=== PATIENT | male | born 1940 | race Caucasian/White ===

== ENCOUNTER 2017-04-23 11:11 | Inpatient (IN) | payer MEDICARE, OTHER ==
[2017-04-23] MEDS ORDERED: Dextrose 50% SYRINGE Inj (50 ml) IVP STA (11:29)
[2017-04-23] MEDS: Sodium Chloride 0.9% 1,000 ML IV STA ×2 (11:45→12:34)
--- NOTE | 2017-04-23 11:45 | ED PDOC ---
Arrival/HPI <Bry Schwartz - Last Filed: 04/23/17 13:55> <Jose Soto - Last Filed: 04/23/17 14:13> - General Chief Complaint: Weakness/Neurological Deficit Time Seen by Provider: 04/23/17 11:14 - History of Present Illness Narrative History of Present Illness (Text): CC: Weakness and failure to thrive This patient is a 76yo M who lives at home with his who has advanced dementia, helped with most daily acitvities of living by family members, who is coming in with son who is saying that the father seems much more weak, lethargic , and unable to do tasks that he was able to do previously. Upon calling Location which he lists as his pharmacy, they listed Vit D 50k, Cipro eye drops , fluconazole cream as his medications; they did not list any medications for chronic health conditions. However upon looking at past blood work done here, he has had a history of hypothyroidism, elevated liver enzymes, and a self reported history of HTN. He does not have any complaints himself, except for intermittent abdominal pain that comes and goes mostly with food, described as sharp, alternating between the right and left upper sides of his abdomen. He is not currently in abdominal pain. He denies fevers/chills, LOPEZ, CP, SOB, abdominal pain now, N/V/D, dysuria/freq/urg, or lower extremity pain. States he is sometimes incontinent with urine, and has to run to the bathroom which has been a problem for the past few years. Upon further questioning, son states that the father was a chronic drinker, drinking 6-12 beers every single day when he was growing up. Patient states he has not had anything to drink in the last 2 weeks. Has never had withdrawal seizures, has never been admitted for EtOH withdrawal. Called Dr. Drew office; stated the patient does not take medicines chronically for his medical conditions; has documented hypothyroidism, and HTN w /o CHF. Office is faxing over last visit to ER. Chest MRI done 4 months ago showed no mass or acute findings; elevated AST/ALT. Negative HIV/RPR, Hep A positive; other Hepatitis negative. US abdomen done but no results. HDL 109 LDL 46 MELD score on last doctors visit in December was 12.0; 6% chance of 3 month mortality. Glucose was 46 on entrance to ER; was given juice by mouth; also given D50 IV. PMhx: unable to obtain from Pt; info from Dr. Drew office; HTN, Hypothyroidism, BPH w/ urinary obstruction, HLD, chronic itchiness Past Surgical history: left eye cataract surgery Allergies: denies Medications: no chronic medications upon calling pharmacy FamHx: denies Social: lives at home with with advanced dementia, they are on meals on wheels, family provides most secondary support every day for IADL, is independent in ADL's, ANox3 and son believes he is at his baseline, previous heavy drinker, denies smoking/illicit drugs 04/23/17 12:28 (Bry Schwartz) Past Medical History - Provider Review Nursing Documentation Reviewed: Yes - Travel History Have you recently traveled outside [place] w/in the past 3 mons?: No - Past History Past History: No Previous - Infectious Disease Hx of Infectious Diseases: None - Cardiac Hx Hypertension: Yes - Neurological Hx Transient Ischemic Attacks (TIA): Yes (two years ago) - Psychiatric Hx Substance Use: No - Surgical History Hx Cataract Extraction: Yes (left eye) <Bry Schwartz - Last Filed: 04/23/17 13:55> Family/Social History - Physician Review Nursing Documentation Reviewed: Yes Family/Social History: No Known Family HX Smoking Status: Never Smoked Hx Alcohol Use: Yes (previous heavy drinker 6-12 beers every day ) Hx Substance Use: No <Bry Schwartz - Last Filed: 04/23/17 13:55> Allergies/Home Meds <Bry Schwartz - Last Filed: 04/23/17 13:55> <Jose Soto - Last Filed: 04/23/17 14:13> Allergies/Adverse Reactions: Allergies No Known Allergies Allergy (Verified 04/23/17 11:21) Home Medications: Home Meds Medication Instructions Recorded Confirmed No Known Home Med 04/23/17 04/23/17 Review of Systems - Physician Review All systems were reviewed & negative as marked: Yes - Review of Systems Constitutional: Fatigue, Weight Change Eyes: absent: Vision Changes ENT: absent: Hearing Changes Respiratory: absent: SOB, Cough, Sputum Cardiovascular: absent: Chest Pain, Palpitations Gastrointestinal: Abdominal Pain. absent: Stool Changes, Constipation Genitourinary Male: absent: Dysuria, Frequency Musculoskeletal: absent: Arthralgias, Back Pain, Neck Pain Skin: absent: Rash, Pruritis Neurological: absent: Headache, Dizziness Endocrine: absent: Diaphoresis Hemo/Lymphatic: absent: Adenopathy Psychiatric: absent: Anxiety <Bry Schwartz - Last Filed: 04/23/17 13:55> Physical Exam Temperature: Afebrile Blood Pressure: Hypotensive Pulse: Regular Respiratory Rate: Normal Appearance: Positive for: Non-Toxic, Cachectic Mental Status: Positive for: Alert and Oriented X 3. No: Confused, Agitated, Lethargic Finger Stick Blood Glucose: 46 - Systems Exam Head: Present: Atraumatic, Normocephalic, Other (temporal wasting ) Extroacular Muscles: Present: EOMI, Other (senile archus present b/l cataracts ) Conjunctiva: Present: Normal Mouth: Present: Moist Mucous Membranes Pharnyx: Present: Normal. No: ERYTHEMA, EXUDATE Neck: Present: Normal Range of Motion. No: Meningeal Signs Respiratory/Chest: Present: Clear to Auscultation, Good Air Exchange. No: Respiratory Distress Cardiovascular: Present: Regular Rate and Rhythm. No: Murmurs Abdomen: Present: Normal Bowel Sounds. No: Tenderness, Distention Back: No: CVA Tenderness Upper Extremity: Present: Normal Inspection. No: Cyanosis, Edema Lower Extremity: Present: Normal Inspection. No: Edema, CALF TENDERNESS Neurological: Present: GCS=15, CN II-XII Intact, Speech Normal <Bry Schwartz - Last Filed: 04/23/17 13:55> Vital Signs Reviewed: Yes <Jose Soto - Last Filed: 04/23/17 14:13> Vital Signs Temp Pulse Resp BP Pulse Ox 04/23/17 13:00 101 H 20 122/69 96 04/23/17 12:00 96.8 F L 110 H 18 99/58 L 98 04/23/17 11:33 97.7 F 70 17 96/61 L 98 Medical Decision Making <Bry Schwartz - Last Filed: 04/23/17 13:55> <Jose Soto - Last Filed: 04/23/17 14:13> ED Course and Treatment: 04/23/17 11:58 DDx is wide; Malnutrition/Failure to Thrive; Hepatocellular Carcinoma; Hepatitis ; ACS; hypothroidism; chronic EtOH abuse -CBC -CMP -EKG, Cardiac ISO; EKG shows flattened T waves and HI depressions -TSH/Free T4 given previous hx of hypothroidism on file -GGT/Alpha feto protein -Head CT, Abdom/pelvis CT w/ IV Contrast -UA -VBC Lactate -Temp 96.8, Hypotensive; awaiting blood work Lactate 7.0; code sepsis called Given -D50/Juice sugar has come up -lactate 7.3; code sepsis called -given 2L of fluid total -1G Vanc and 1g Cefepime -WBC 17.0, INR 2.14 04/23/17 12:16 VBG shows K of 7.1; will give calcium gluconate pending CMP Blood pressure has responded to fluids; currently 120/85 on monitor patient is comfortably resting in bed; anox3; answering all questions; family at bedside; all questions answered pending head CT and abdominal/pelvis CT 04/23/17 12:49 Current MELD score of 23pts; 19.6% of 3 month mortality LUCRETIA; creatinine currently 1.5 from baseline of 0.5 in December; BUN 40; patient is likely very dehydrated Mag and Phos WNL K 3.3; will give 40meq potassium will go for Abd Pelvis CT and head CT now 04/23/17 12:50 Trop 0.2; will reorder one for 6 hours 04/23/17 13:44 Chest X-Ray shows large effusion on the left patient is oxygenating well, in no acute distress Talked to Dr. Ochoa who accepts patient to her service on Telemetry Placed consult for Dr. Mariee on her behalf Still pending head CT, Chest CT, Abdomen/Pelvis CT 04/23/17 13:45 (Bry Schwartz) 04/23/17 14:05 Patient seen and examined with resident; came up together with plan and treatment. BP initially noted to be low at 96 systolic. Exam with significantly diminished BS on the left side and noted to be cachectic. VBG with lactic acid of 7.3; code sepsis called. IV antibiotics started and IVF given per protocol. CXR with large effusion and possible mass on the left side. BP has responded nicely to IVF, now up to [address] c/a/p is pending. He will need to be admitted for iv antibiotics and further assessment and treatment for sepsis and potential underlying disease so will need to r/o malignancy. 04/23/17 14:12 Resident [place] spoke with Dr. Ochoa concerning admission. (Jose Soto) - Lab Interpretations Lab Results: 04/23/17 11:30 04/23/17 12:30 Lab Results 04/23/17 12:30: Sodium 143, Chloride 104, Potassium 3.3 L, Carbon Dioxide 25, Anion Gap 17, BUN 40 H, Creatinine 1.5, Est GFR ( Amer) 55, Est GFR (Non- Af Amer) 46, Random Glucose 274 H, Calcium 8.8, Phosphorus 4.6 H, Magnesium 1.8 , Total Bilirubin 3.3 H, GGT 39, AST 40, ALT 33, Alkaline Phosphatase 110, Lactate Dehydrogenase 317 L, Total Creatine Kinase 30 L, Troponin I 0.02, Total Protein 5.3 L, Albumin 2.3 L, Globulin 3.1, Albumin/Globulin Ratio 0.7 L, Lipase 12 L 04/23/17 11:30: PT 23.9 H, INR 2.14 H 04/23/17 11:30: pO2 35, VBG pH 7.30 L, VBG pCO2 51.0, VBG HCO3 25.1, VBG Total CO2 26.7, VBG O2 Sat (Calc) 62.0, VBG Base Excess -2.0 L, VBG Potassium 7.6 H*, Sodium 140.0, Chloride 103.0, Glucose 127 H, Lactate 7.3 H*, FiO2 21.0, Venous Blood Potassium 7.6 H* 04/23/17 11:30: Free T4 1.83, TSH 3rd Generation 11.20 H 04/23/17 11:30: WBC 17.6 H, RBC 4.56, Hgb 15.0, Hct 42.9, MCV 94.1, MCH 32.9, MCHC 35.0, RDW 13.9, Plt Count 251, MPV 9.9, Gran % 76.3 H, Lymph % (Auto) 9.3 L , Wagoner % (Auto) 13.9 H, Eos % (Auto) 0.2 L, Baso % (Auto) 0.3, Gran # 13.43 H, Lymph # 1.6, Wagoner # 2.5 H, Eos # 0.0, Baso # 0.06 - RAD Interpretation Radiology Orders: 04/23/17 11:47 HEAD W/O CONTRAST [CT] Stat CHEST PORTABLE [RAD] Stat 04/23/17 12:48 ABDOMEN & PELVIS [ABD & PELVIS W/O PO OR IV CONT] [CT] Stat 04/23/17 13:45 CHEST W/O CONTRAST [CT] Stat - Medication Orders Current Medication Orders: Cefepime HCl (Maxipime 1gm) 1 gm in 100 mls @ 100 mls/hr IVPB Q24H CEM PRN Reason: Protocol Discontinued Medications Dextrose (Dextrose 50% Inj) 50 ml IVP STAT STA Stop: 04/23/17 11:30 Last Admin: 04/23/17 11:54 Dose: 50 ml IVP Administration Document 04/23/17 11:54 YVETTE (Rec: 04/23/17 11:54 YVETTE VARGAS-PC) Charges for Administration # of IVP Administrations 1 Sodium Chloride (Sodium Chloride 0.9%) 1,000 mls @ 999 mls/hr IV .Q1H1M STA Stop: 04/23/17 12:36 Last Admin: 04/23/17 12:34 Dose: 999 mls/hr eMAR Start Stop Document 04/23/17 12:34 YVETTE (Rec: 04/23/17 12:35 YVETTE VARGAS-PC) Intravenous Solution Start Date 04/23/17 Start Time 12:35 End Date 04/23/17 End time 13:35 Total Infusion Time 60 Multivitamins/Vitamin C 10 ml/Thiamine HCl 100 mg/ Folic Acid 1 mg/ Sodium Chloride 1,011.2 mls @ 999 mls/hr IV .Q1H1M ONE Stop: 04/23/17 12:57 Last Admin: 04/23/17 12:36 Dose: 999 mls/hr eMAR Start Stop Document 04/23/17 12:36 YVETTE (Rec: 04/23/17 12:36 YVETTE VARGAS-PC) Intravenous Solution Start Date 04/23/17 Start Time 12:36 End Date 04/23/17 End time 13:36 Total Infusion Time 60 Vancomycin HCl (Vancomycin 1gm) 1 gm in 250 mls @ 167 mls/hr IVPB STAT STA PRN Reason: Protocol Stop: 04/23/17 13:33 Last Admin: 04/23/17 12:21 Dose: 167 mls/hr eMAR Start Stop Document 04/23/17 12:21 YVETTE (Rec: 04/23/17 12:21 VYETTE [id number]) Intravenous Solution Start Date 04/23/17 Start Time 12:21 End Date 04/23/17 End time 14:00 Total Infusion Time 99 Potassium Chloride (K-Dur 20 Meq Er Tab) 40 meq PO STAT STA Stop: 04/23/17 12:49 Last Admin: 04/23/17 13:02 Dose: 40 meq NIHSS Scale ([place]) Time Performed: 11:56 - How Severe is the Stoke Baseline Level of Consciousness: 0=Alert LOC to Questions: 0=Both comments correct LOC to commands: 0=Obeys both correctly Best Gaze: 0=Normal Visual: 0=No visual loss Facial: 0=Normal Motor Arm - Left: 0=No drift Motor Arm - Right: 0=No drift Motor Leg - Left: 0=No drift Motor Leg - Right: 0=No drift Limb Ataxia: 0=Absent Sensory: 0=Normal Best Language: 0=No aphasia Dysarthia: 0=Normal articulation Extinction & Inattention (Neglect): 0=Normal, no object Score: 0 Risk Level: No Stroke Risk <Bry Schwartz - Last Filed: 04/23/17 13:55> - PA / PAPER GLUING OPERATOR / Resident Statement / has reviewed & agrees with the documentation as recorded. / has examined the patient and agrees with the treatment plan. <Jose Soto - Last Filed: 04/23/17 14:13> Disposition/Present on Arrival - Present on Arrival Any Indicators Present on Arrival: Yes History of DVT/PE: No History of Uncontrolled Diabetes: No Urinary Catheter: No History of Decub. Ulcer: No History Surgical Site Infection Following: None - Disposition Have Diagnosis and Disposition been Completed?: Yes Disposition Time: 13:55 Patient Plan: Telemetry <Bry Schwartz - Last Filed: 04/23/17 13:55> <Jose Soto - Last Filed: 04/23/17 14:13> - Disposition Diagnosis: Sepsis Disposition: HOSPITALIZED Patient Problems: Current Active Problems Problem Status Onset Sepsis Acute Condition: SERIOUS
[2017-04-23] MEDS ORDERED: Thiamine 100 mg/ml Inj IM STA (11:51)
[2017-04-23] MEDS ORDERED: Folic Acid 1 MG in Sodium Chloride 0.9% 50 ML IV STA (11:51)
[2017-04-23 11:57] LABS: BASO # 0.06 K/mm3 (0.0-2.0); BASO % 0.3 % (0.0-3.0); EOS % 0.2 % (1.5-5.0); GRAN # 13.43 (1.4-6.5); GRAN % 76.3 % (50.0-68.0); HEMATOCRIT 42.9 % (42.0-52.0); LYMPH # 1.6 (1.2-3.4); LYMPH % 9.3 % (22.0-35.0); MEAN CELL VOLUME 94.1 fl (80.0-105.0); MEAN CORPUSCULAR HEMOGLOBIN 32.9 pg (25.0-35.0); MEAN PLATELET VOLUME 9.9 fl (7.0-11.0); MONO # 2.5 (0.1-0.6); MONO % 13.9 % (1.0-6.0); RED CELL DISTRIBUTION WIDTH 13.9 % (11.5-14.5); WHITE BLOOD COUNT 17.6 10^3/ul (4.5-11.0)
[2017-04-23] MEDS ORDERED: Multivitamin (MVI) 10 ML, Thiamine 100 MG, Folic Acid 1 MG in Sodium Chloride 0.9% 1,00... IV ONE ×2 (11:57→12:03)
[2017-04-23 12:04] LABS: INR 2.14 (0.93-1.08)
[2017-04-23] MEDS ORDERED: Vancomycin 1gm in NS 250ml 1 GM/250 ML BAG IVPB STA (12:04)
[2017-04-23] MEDS ORDERED: Cefepime 1gm in NS 100ml 1 GM/100 ML BAG IVPB SCH (12:15)
[2017-04-23 12:45] LABS: ALB/GLOB RATIO 0.7 (1.1-1.8); BILIRUBIN,TOTAL 3.3 mg/dL (0.2-1.3); CALCIUM 8.8 mg/dL (8.4-10.5); MAGNESIUM 1.8 mg/dL (1.7-2.2); PHOSPHOROUS 4.6 mg/dL (2.5-4.5); POTASSIUM 3.3 mmol/L (3.6-5.0); TOTAL PROTEIN 5.3 g/dL (5.8-8.3)
[2017-04-23] MEDS ORDERED: Potassium Chloride 20 mEq ER Tab PO STA (12:48)
[2017-04-23 12:55] LABS: TROPONIN I 0.02 ng/mL
[2017-04-23 13:29] LABS: FREE T4 1.83 ng/dL (0.78-2.19)
[2017-04-23 13:42] LABS: THYROID STIMULATING HORMONE 11.2 mIU/mL (0.46-4.68)
--- NOTE | 2017-04-23 14:19 | RAD ---
HISTORY: weakness COMPARISON: No prior. FINDINGS: LUNGS: Left-sided infiltrate and effusion. There is mediastinal shift to the right. There is a fluid loculation in the right lung apex. CT may be indicated for further evaluation. The right lung is clear PLEURA: No significant pleural effusion identified, no pneumothorax apparent. CARDIOVASCULAR: Severe cardiomegaly OSSEOUS STRUCTURES: No significant abnormalities. VISUALIZED UPPER ABDOMEN: Normal. OTHER FINDINGS: None. IMPRESSION: Left-sided infiltrate and effusion. There is mediastinal shift to the right. There is a fluid loculation in the right lung apex. CT may be indicated for further evaluation. The right lung is clear
--- NOTE | 2017-04-23 15:31 | CT ---
PROCEDURE: CT HEAD WITHOUT CONTRAST. HISTORY: weakness COMPARISON: 10/12/[address] MR brain[address] No prior CT head exams TECHNIQUE: Axial computed tomography images were obtained through the head/brain without intravenous contrast. Radiation dose: Total exam DLP = 748 mGy-cm. This CT exam was performed using one or more of the following dose reduction techniques: Automated exposure control, adjustment of the mA and/or kV according to patient size, and/or use of iterative reconstruction technique. FINDINGS: HEMORRHAGE: No intracranial hemorrhage. BRAIN: No mass effect or edema. Cerebral atrophy with findings consistent with chronic microvascular ischemic changes are also suggested on the CT exam VENTRICLES: Are prominent yet similar in-commensurate with the degree of cerebral atrophy present and consistent with patient's age CALVARIUM: Unremarkable. PARANASAL SINUSES: Unremarkable as visualized. No significant inflammatory changes. MASTOID AIR CELLS: Unremarkable as visualized. No inflammatory changes. OTHER FINDINGS: None. IMPRESSION: No interval change. No interval hemorrhage or mass effect. No interval extra-axial pathology. Cerebral atrophy and findings consistent with chronic microvascular ischemic changes are renoted
--- NOTE | 2017-04-23 15:56 | CT ---
PROCEDURE: CT Chest, Abdomen and Pelvis without intravenous contrast HISTORY: elevated lft COMPARISON: None. TECHNIQUE: Radiation dose: Total exam DLP = 820 mGy-cm. This CT exam was performed using one or more of the following dose reduction techniques: Automated exposure control, adjustment of the mA and/or kV according to patient size, and/or use of iterative reconstruction technique. FINDINGS: CT CHEST WITHOUT CONTRAST: LUNGS: Large loculated left pleural effusion. There is complete collapse and consolidation of the left lung MEDIASTINUM: Unremarkable. Normal caliber aorta and pulmonary arterial trunk. Normal size heart. LYMPH NODES: Unremarkable. PLEURA: There is a large loculated left-sided pleural effusion. Multiple small pockets of air are seen within the effusion which is suspicious for a gas-forming infection. BONES: Unremarkable. OTHER FINDINGS: None. CT ABDOMEN AND PELVIS: LIVER: Unremarkable. No gross lesion or ductal dilatation. GALLBLADDER AND BILE DUCTS: Unremarkable. PANCREAS: Unremarkable. No gross lesion or ductal dilatation. SPLEEN: Unremarkable. ADRENALS: Unremarkable. No mass. KIDNEYS AND URETERS: Unremarkable. No hydronephrosis. No solid mass. VASCULATURE: Unremarkable. No aortic aneurysm. BOWEL: Unremarkable. No obstruction. No gross mural thickening. APPENDIX: Normal appendix. PERITONEUM: Unremarkable. No free fluid. No free air. LYMPH NODES: Unremarkable. No enlarged lymph nodes. BLADDER: Unremarkable. REPRODUCTIVE: Unremarkable. BONES: There is an L1 compression fracture, age uncertain OTHER FINDINGS: None. IMPRESSION: Large loculated left-sided pleural effusion. Multiple small pockets of air are seen within the effusion which is suspicious for a gas-forming infection. There is collapse of the left lung
[2017-04-23 16:40] LABS: VENOUS BLOOD PH 7.31 (7.32-7.43)
--- NOTE | 2017-04-23 16:51 | CARD ---
APPROVED REPORT EKG Measurement Heart [id number] <Conclusion> Sinus tachycardia Nonspecific ST and T wave abnormality Abnormal ECG
[2017-04-23 16:59] LABS: TROPONIN I 0.02 ng/mL
[2017-04-23] MEDS: Dextrose 5%/0.45% NS 1,000 ML IV SCH (17:08)
[2017-04-23] MEDS: Albuterol-Ipratrop 3 mg / 0.5 (3 ml) UD IH SCH (19:45)
[2017-04-23 22:58] LABS: TROPONIN I 0.02 ng/mL
[2017-04-24] MEDS: Albuterol-Ipratrop 3 mg / 0.5 (3 ml) UD IH SCH ×4 (01:30→19:24)
--- NOTE | 2017-04-24 01:45 | HP ---
HISTORY OF PRESENT ILLNESS: The patient is 76-year-old who was brought to emergency room because of increasing weakness, losing weight, not eating that well. He lives with his who stated that he has been increasingly weak, tired, refusing to eat, so when son came to visit, mom asked him to bring to emergency room for further evaluation. PAST MEDICAL HISTORY: He has significant past medical history for; 1. Hypothyroidism. 2. Hypertension. 3. History of intermittent abdominal pain. He was taken to his regular doctor who started workup, was given prescription for abdominal sonogram in December, but he never went. SOCIAL HISTORY: Significant for heavy drinking in the past; he used to drink 6 to 12 beers every day. He is , lives with his because he is unable to take care of himself because of his worsening dementia. SURGICAL HISTORY: Significant for left eye cataract surgery. MEDICATIONS: Currently, he is not on any medication. ALLERGIES: HE IS NOT ALLERGIC TO ANY MEDICATION. REVIEW OF SYSTEMS: Significant for generalized weakness, cachectic, and pale. PHYSICAL EXAMINATION: VITAL SIGNS: He is afebrile, pulse 100, respirations 20, and blood pressure 120/82. LUNGS: Bilateral fair airflow. No rhonchi or crackle. HEART: S1 and S2 audible. ABDOMEN: Soft. No rebound or guarding. NEUROLOGIC: He is awake and alert, but not very communicative. EXTREMITIES: Bilateral leg,no edema. LABORATORY DATA: WBC is 17.6, hemoglobin 15, hematocrit 42, and platelet count of 251. PT 23.9 and INR 2.14. Chemistry: Sodium 143, potassium 3.3, chloride 104, CO2 of 25, BUN 40, creatinine 1.5, and blood sugar of 274. His magnesium is 1.8. Total bili 3.3. His AST 39 and ALT 40. LDH is 317. His TSH is 11.20. CT of the abdomen and pelvis was done that showed large, loculated left-sided pleural effusion; multiple small pockets of air are seen within the effusion which is suspicious for gas-forming infection. There is collapse of the left lung. CT scan of the head shows no interval change, interval hemorrhage or mass effect; cerebral atrophy consistent with microvascular changes. X-ray of chest, left-sided infiltrate and effusion. There is mediastinal shift to the right and pleural loculation in the right lung apex. ASSESSMENT: 1. Left lower lobe pneumonia versus malignancy. 2. Pleural effusion. 3. Significant weight lost. 4. Leukocytosis. 5. History of hypertension. PLAN: We will start the patient on IV fluids, start him on antibiotics, nebulizer treatment. Request Dr. Harman to evaluate the patient. Request Dr. Darren Warren for thoracentesis, therapeutic and diagnostic, and we will follow up his electrolytes. We will follow up the patient in a.m. Tony Ochoa MD
[2017-04-24] MEDS: Dextrose 5%/0.45% NS 1,000 ML IV SCH (05:32)
[2017-04-24] MEDS: Meropenem 1 GM in Dextrose 5% In Water 100 ML IVPB SCH ×2 (08:04→17:57)
[2017-04-24 09:21] LABS: BASO # 0.09 K/mm3 (0.0-2.0); BASO % 0.6 % (0.0-3.0); EOS # 0.1 (0.0-0.7); EOS % 0.5 % (1.5-5.0); GRAN # 10.06 (1.4-6.5); GRAN % 67.6 % (50.0-68.0); HEMATOCRIT 37.2 % (42.0-52.0); LYMPH # 2.3 (1.2-3.4); LYMPH % 15.1 % (22.0-35.0); MEAN CELL VOLUME 94.4 fl (80.0-105.0); MEAN CORPUSCULAR HEMOGLOBIN 31.2 pg (25.0-35.0); MEAN CORPUSCULAR HGB CONC 33.1 g/dl (31.0-37.0); MEAN PLATELET VOLUME 9.6 fl (7.0-11.0); MONO # 2.4 (0.1-0.6); MONO % 16.2 % (1.0-6.0); RED CELL DISTRIBUTION WIDTH 14.2 % (11.5-14.5); WHITE BLOOD COUNT 14.9 10^3/ul (4.5-11.0)
[2017-04-24 09:25] LABS: ALB/GLOB RATIO 0.8 (1.1-1.8); ALKALINE PHOSPHATASE 122 U/L (38-126); ALT/SGPT 43 U/L (7-56); AST/SGOT 38 U/L (17-59); BILIRUBIN,TOTAL 3.2 mg/dL (0.2-1.3); BLOOD UREA NITROGEN 36 mg/dL (7-21); CALCIUM 8.5 mg/dL (8.4-10.5); CARBON DIOXIDE 21 mmol/L (21-33); CHLORIDE 113 mmol/L (98-107); GFR AFRICAN-AMERICAN > 60; GLUCOSE,RANDOM 154 mg/dL (70-110); SODIUM 145 mmol/L (132-148); TOTAL PROTEIN 5.4 g/dL (5.8-8.3)
[2017-04-24] MEDS: Azithromycin 500MG/NS 250ml 500 MG/250 ML BAG IVPB SCH (09:51)
[2017-04-24] MEDS ORDERED: cefTRIAXone 1 gm 1 GM/100 ML BAG IVPB SCH (10:00)
[2017-04-24] MEDS ORDERED: Levalbuterol 0.63 MG/3 ML Inhal Soln UD IH PRN (10:35)
[2017-04-24 11:47] LABS: INR 1.88 (0.93-1.08)
[2017-04-24] MEDS ORDERED: Dextrose 5%/0.45% NS 1,000 ML IV SCH (12:28)
--- NOTE | 2017-04-24 12:59 | CON ---
DATE: 04/24/2017 The patient is in room 268, bed 2. CHIEF COMPLAINT: Weakness from several days. HISTORY OF PRESENT ILLNESS: This is a 76-year-old [facility] man, who has not been in [place] for past 20 years with hypothyroidism and hypertension and cataract and dementia with a history of alcohol abuse who was admitted with shortness of breath and weakness and found to have pneumonia with loculated effusion, Infectious consultation requested. REVIEW OF SYSTEMS: Reveals the patient's son is at the bedside who states that he had been deteriorating last few days. He has been weak, unable to tolerate food, there was minimal cough, low grade fevers. No abdominal pain or diarrhea. No headaches or blurred vision. PAST MEDICAL HISTORY: Significant for hypothyroidism, hypertension, cataract, and dementia. PAST SURGICAL HISTORY: Significant for left eye cataract surgery. ALLERGIES: THE PATIENT HAS NO KNOWN ALLERGIES. MEDICATIONS AT HOME: Reviewed. PHYSICAL EXAMINATION GENERAL: The patient is in bed. VITAL SIGNS: Temperature of 98. It was around 96.8, heart rate of 113, respiratory rate of 20 with blood pressure of 111/60. HEENT: Unremarkable. NECK: Supple. LUNGS: Decreased breath sounds. HEART: Normal S1, S2. ABDOMEN: Soft, nontender. No rebound or guarding. LABORATORY DATA: A white count of 17,600; 76% granulocytosis, 13% monocytosis, and coagulation is noted with INR of 2.14. Blood gases are noted. Chemistries reveals a BUN of 36, creatinine on admission was 1.5, it had been 0.5. The patient also has an elevated LDH. ASSESSMENT AND PLAN: This is a 76-year-old [facility] male with hypothyroidism, hypertension, cataracts, dementia who was admitted with severe sepsis with left lower lobe community-acquired pneumonia with left loculated effusion on CAT scan of the chest and with acute kidney injury. Creatinine is changed from last time 0.54 up to 1.5. We will treat the patient with Maxipime and azithromycin in a patient who is long-time alcoholic continues to use alcohol. Pending blood cultures, urine cultures, sputum cultures, procalcitonin, urine for Legionella antigen, and we will treat the patient with meropenem and azithromycin. We will request Dr. Darren Warren for evaluation, possible CAT scan-guided aspiration of his pleural fluid. Pending crouch culture and initial serology workup results. We will follow closely with you. Bry Harman MD
--- NOTE | 2017-04-24 13:40 | PN ---
SUBJECTIVE: The patient is 76 years old, seen and examined. Constantly coughing when I came to examine the patient. He is having shortness of breath. No nausea or vomiting. Does have decreased appetite. Son is by the bedside, whose name is Roldan. He states for a week or so, he has not been eating and drinking and ambulating that much. PHYSICAL EXAMINATION VITAL SIGNS: He is afebrile, pulse 111, respirations 20, blood pressure 104/66. LUNGS: Bilateral crackle, more so in the left lower lung region. HEART: S1 and S2 audible. Tachycardic. ABDOMEN: Soft, nontender. No rebound, no guarding. NEUROLOGICAL: The patient is awake, alert, oriented, able to communicate. LABORATORY DATA: WBC is 14.9, hemoglobin 12.3, hematocrit 37.2, platelet of 204. PT is 20.9, INR 1.88. Chemistry: Sodium 145, potassium 4.0, chloride 113, CO2 of 21, BUN 36, creatinine 1.1, blood sugar is 154, albumin 2.4. His PT/INR is elevated. Blood culture [address] scan of the abdomen and chest shows loculated fluid in the left lower lung region. Pleural effusion versus infiltrate versus mass. ASSESSMENT: 1. Left lower lobe effusion, left lower lobe infiltrate versus mass. 2. Alcohol-related hepatitis with elevated coags. 3. History of alcohol abuse in the past. 4. Significant weight loss. 5. Asthmatic bronchitis. 6. Renal insufficiency. 7. Leukocytosis improving. PLAN: Currently, the patient is on IV fluid, cut down to 50 mL/hour. Continue on nebulizer treatment. He has been started on meropenem and he is on Zithromax. We will follow up his electrolytes, CBC and CMP in the a.m. Awaiting Dr. Darren Warren's input. He might need aspiration for diagnostic and probably therapeutic purpose. Further plan after their input. Tony Ochoa MD
[2017-04-24] MEDS: Albuterol-Ipratrop 3 mg / 0.5 (3 ml) UD IH PRN ×2 (14:33→23:34)
[2017-04-24 15:37] LABS: URINE APPEARANCE CLEAR (CLEAR); URINE BILIRUBIN SMALL (NEGATIVE); URINE BLOOD NEGATIVE (NEGATIVE); URINE COLOR YELLOW (YELLOW); URINE GLUCOSE (UA) NEGATIVE (NEGATIVE); URINE KETONE NEGATIVE (NEGATIVE); URINE LEUKOCYTE ESTERASE NEGATIVE Leu/uL (NEGATIVE); URINE PROTEIN 30 mg/dL (<30 mg/dL)
[2017-04-24 16:12] LABS: URINE RBC 0 - 2 /hpf (0-2); URINE WBC 0 - 2 /hpf (0-6)
[2017-04-24 17:23] LABS: BODY FLUID TYPE PLEURAL
--- NOTE | 2017-04-24 17:59 | US ---
PROCEDURE: Ultrasound guided left thoracentesis. CLINICAL HISTORY: Complex large loculated left pleural effusion. ? Infection versus malignancy PHYSICIAN(S): Darren Warren MD. TECHNIQUE: The relative risks and indications of the procedure were explained to the patient's grandson and consent obtained. The patient was placed in a sitting position on the stretcher and sonography of the left chest performed. This revealed a moderate to large complex loculated left pleural effusion. H left lateral intercostal approach was selected in the area prepped and draped usual sterile fashion. 1 percent xylocaine was used to anesthetize the skin and soft tissues. Initially an 18 gauge needle was advanced into the left pleural space and no fluid was obtained. Subsequently, a 0.035 guidewire was coiled in the left pleural space and dilatation performed with placement of a 14 Faroese pigtail catheter. Was rotated and moved. Only 30 cc of serosanguineous turbid fluid was aspirated. The appropriate labs were sent. The tube was removed. The patient tolerated the procedure well.. IMPRESSION: 1. Ultrasound guided left thoracentesis. 30 cc of serosanguineous turbid fluid was aspirated. The appropriate labs were sent. 2. Thoracic surgery console may be useful to evaluate for possible empyema
[2017-04-24] MEDS ORDERED: guaiFENesin DM 100 mg-10 mg/5 ml UD PO PRN (19:29)
[2017-04-24 19:46] LABS: BF GROSS APPEARANCE BLOODY (CLEAR)
[2017-04-24 19:47] LABS: BODY FLUID TOTAL COUNT 100 (0-0)
--- NOTE | 2017-04-24 23:57 | CP.PCM.PN ---
Subjective - Date & Time of Evaluation Date of Evaluation: 04/24/17 Time of Evaluation: 23:57 - Subjective Subjective: Patient was seen at bedside because as per nurse he sounded wet .He just got duoneb. Patient awake ,barely speaking , said no when I asked if he had sob, chest pain. Pulse ox : 90 % 3L/min. 123/m, BP 129/83. This 76 year old male was admitted with increasing weakness, loosing weight, not eating well,LLL PNA Vs. malignancy,leukocytosis, anemia. Has PMH of HTN, hypothyroidism, intermittent abdominal pain history,left eye cataract surgery, heavy drinking. Objective - Vital Signs/Intake and Output Vital Signs (last 24 hours): Temp Pulse Resp BP Pulse Ox 97.2 F L 62 21 90/44 L 99 04/24/17 18:00 04/24/17 18:00 04/24/17 18:00 04/24/17 18:00 04/24/17 06:00 Intake and Output: 04/24/17 04/25/17 18:59 06:59 Intake Total 480 Output Total 200 Balance 280 - Medications Medications: Current Medications Acetaminophen (Tylenol 325mg Tab) 650 mg PO Q6H PRN PRN Reason: Fever >100.4 F Albuterol/Ipratropium (Duoneb 3 Mg/0.5 Mg (3 Ml) Ud) 3 ml IH [id number] CEM Last Admin: 04/24/17 19:24 Dose: 3 ml Albuterol/Ipratropium (Duoneb 3 Mg/0.5 Mg (3 Ml) Ud) 3 ml IH Q2H PRN PRN Reason: Shortness of Breath Last Admin: 04/24/17 23:34 Dose: 3 ml Guaifenesin/Dextromethorphan (Robitussin Dm) 5 ml PO Q6H PRN PRN Reason: Cough Azithromycin (Zithromax 500mg In Ns) 500 mg in 250 mls @ 167 mls/hr IVPB DAILY CEM PRN Reason: Protocol Last Admin: 04/24/17 09:51 Dose: 167 mls/hr Meropenem 1 gm/ Dextrose 100 mls @ 100 mls/hr IVPB Q12H CEM PRN Reason: Protocol Stop: 05/03/17 06:31 Last Admin: 04/24/17 17:57 Dose: 100 mls/hr Dextrose/Sodium Chloride (Dextrose 5%/0.45% Ns 1000 Ml) 1,000 mls @ 60 mls/hr IV .[id number] [facility] Last Admin: 04/24/17 14:35 Dose: 60 mls/hr Ondansetron HCl (Zofran Inj) 4 mg IVP Q6H PRN PRN Reason: Nausea/Vomiting Pantoprazole Sodium (Protonix Inj) 40 mg IVP DAILY [facility] Last Admin: 04/24/17 09:52 Dose: 40 mg - Labs Labs: 04/24/17 09:00 04/24/17 09:00 PT 20.9 SECONDS (9.4-12.5) H 04/24/17 11:16 INR 1.88 (0.93-1.08) H 04/24/17 11:16 Micro Results 04/24/17 17:20 Pleural Fluid Gram Stain - Final 04/23/17 12:30 Blood-Venous Blood Culture - Preliminary NO GROWTH AFTER 24 HOURS 04/23/17 11:30 Blood-Venous Blood Culture - Preliminary NO GROWTH AFTER 24 HOURS Most Recent Lab Values WBC 14.9 10^3/ul (4.5-11.0) H 04/24/17 09:00 RBC 3.94 10^6/uL (3.5-6.1) 04/24/17 09:00 Hgb 12.3 g/dL (14.0-18.0) L D 04/24/17 09:00 Hct 37.2 % (42.0-52.0) L 04/24/17 09:00 MCV 94.4 fl (80.0-105.0) 04/24/17 09:00 MCH 31.2 pg (25.0-35.0) 04/24/17 09:00 MCHC 33.1 g/dl (31.0-37.0) 04/24/17 09:00 RDW 14.2 % (11.5-14.5) 04/24/17 09:00 Plt Count 204 10^3/uL (120.0-450.0) 04/24/17 09:00 MPV 9.6 fl (7.0-11.0) 04/24/17 09:00 Gran % 67.6 % (50.0-68.0) 04/24/17 09:00 Lymph % (Auto) 15.1 % (22.0-35.0) L 04/24/17 09:00 [place]ataño % (Auto) 16.2 % (1.0-6.0) H 04/24/17 09:00 Eos % (Auto) 0.5 % (1.5-5.0) L 04/24/17 09:00 Baso % (Auto) 0.6 % (0.0-3.0) 04/24/17 09:00 Gran # 10.06 (1.4-6.5) H 04/24/17 09:00 Lymph # 2.3 (1.2-3.4) 04/24/17 09:00 [place]ata[place] # 2.4 (0.1-0.6) H 04/24/17 09:00 Eos # 0.1 (0.0-0.7) 04/24/17 09:00 Baso # 0.09 K/mm3 (0.0-2.0) 04/24/17 09:00 PT 20.9 SECONDS (9.4-12.5) H 04/24/17 11:16 INR 1.88 (0.93-1.08) H 04/24/17 11:16 pO2 41 mm/Hg (30-55) 04/23/17 16:24 VBG pH 7.31 (7.32-7.43) L 04/23/17 16:24 VBG pCO2 54.0 (40-60) 04/23/17 16:24 VBG HCO3 27.2 mmol/l (21-28) 04/23/17 16:24 VBG Total CO2 28.9 mmol.L (22-28) H 04/23/17 16:24 VBG O2 Sat (Calc) 73.4 % (40-65) H 04/23/17 16:24 VBG Base Excess 0.0 mmol/L (0.0-2.0) 04/23/17 16:24 VBG Potassium 3.5 mmol/L (3.6-5.2) L 04/23/17 16:24 Sodium 143.0 mmol/L (132-148) 04/23/17 16:24 Chloride 110.0 mmol/L (98-107) H 04/23/17 16:24 Glucose 86 mg/dl (75-110) 04/23/17 16:24 Lactate 3.2 mmol/L (0.7-2.1) H 04/23/17 16:24 FiO2 21.0 % 04/23/17 16:24 Sodium 145 mmol/L (132-148) 04/24/17 09:00 Potassium 4.0 mmol/L (3.6-5.0) 04/24/17 09:00 Chloride 113 mmol/L (98-107) H 04/24/17 09:00 Carbon Dioxide 21 mmol/L (21-33) 04/24/17 09:00 Anion Gap 15 (10-20) 04/24/17 09:00 BUN 36 mg/dL (7-21) H 04/24/17 09:00 Creatinine 1.1 mg/dL (0.8-1.5) 04/24/17 09:00 Est GFR ( Amer) > 60 04/24/17 09:00 Est GFR (Non-Af Amer) > 60 04/24/17 09:00 POC Glucose (mg/dL) 192 mg/dL (65-110) H 04/23/17 12:10 Random Glucose 154 mg/dL (70-110) H 04/24/17 09:00 Calcium 8.5 mg/dL (8.4-10.5) 04/24/17 09:00 Phosphorus 4.6 mg/dL (2.5-4.5) H 04/23/17 12:30 Magnesium 1.8 mg/dL (1.7-2.2) 04/23/17 12:30 Total Bilirubin 3.2 mg/dL (0.2-1.3) H 04/24/17 09:00 GGT 39 U/L (8-78) 04/23/17 12:30 AST 38 U/L (17-59) 04/24/17 09:00 ALT 43 U/L (7-56) 04/24/17 09:00 Alkaline Phosphatase 122 U/L (38-126) 04/24/17 09:00 Lactate Dehydrogenase 310 U/L (333-699) L 04/23/17 22:33 Total Creatine Kinase 33 U/L (35-230) L 04/23/17 22:33 Troponin I 0.02 ng/mL 04/23/17 22:33 Total Protein 5.4 g/dL (5.8-8.3) L 04/24/17 09:00 Albumin 2.4 g/dL (3.0-4.8) L 04/24/17 09:00 Globulin 3.1 gm/dL 04/24/17 09:00 Albumin/Globulin Ratio 0.8 (1.1-1.8) L 04/24/17 09:00 Lipase 12 U/L (23-300) L 04/23/17 12:30 Alpha Fetoprotein 1.2 ng/mL (0.0-7.5) 04/23/17 16:24 Carcinoembryonic Ag 2.5 ng/mL (0.0-3.0) 04/24/17 09:00 Procalcitonin 3.89 NG/ML (0.19-0.49) H 04/24/17 08:30 Free T4 1.83 ng/dL (0.78-2.19) 04/23/17 11:30 TSH 3rd Generation 11.20 mIU/mL (0.46-4.68) H 04/23/17 11:30 Venous Blood Potassium 3.5 mmol/L (3.6-5.2) L 04/23/17 16:24 Urine Color Yellow (YELLOW) 04/24/17 15:00 Urine Appearance Clear (CLEAR) 04/24/17 15:00 Urine pH 6.0 (4.7-8.0) 04/24/17 15:00 Ur Specific Martin 1.015 (1.005-1.035) 04/24/17 15:00 Urine Protein 30 mg/dL (<30 mg/dL) H 04/24/17 15:00 Urine Glucose (UA) Negative mg/dL (NEGATIVE) 04/24/17 15:00 Urine Ketones Negative mg/dL (NEGATIVE) 04/24/17 15:00 Urine Blood Negative (NEGATIVE) 04/24/17 15:00 Urine Nitrate Negative (NEGATIVE) 04/24/17 15:00 Urine Bilirubin Small (NEGATIVE) H 04/24/17 15:00 Urine Urobilinogen 4.0 E.U./dL (<1 E.U./dL) H 04/24/17 15:00 Ur Leukocyte Esterase Negative Apple/uL (NEGATIVE) 04/24/17 15:00 Urine RBC 0 - 2 /hpf (0-2) 04/24/17 15:00 Urine WBC 0 - 2 /hpf (0-6) 04/24/17 15:00 Ur Epithelial Cells 1 - 3 /hpf (0-5) 04/24/17 15:00 Fluid Source Pleural 04/24/17 17:20 Fluid Appearance Bloody (CLEAR) 04/24/17 17:20 Fluid WBC 430.0 /uL (0.0-300.0) H 04/24/17 17:20 Fluid RBC 41256.0 /uL (0.0-0.0) H 04/24/17 17:20 Fluid Tot Cell Count 100 (0-0) H 04/24/17 17:20 Fluid Neutrophils 25.0 % (0-0) H 04/24/17 17:20 Fluid Lymphocytes 35.0 % (0-0) H 04/24/17 17:20 Fld Monocyte/Macrophag 40 % (0-0) H 04/24/17 17:20 Fluid Comment TEST NOT PERFORMED 04/24/17 17:20 Pleural pH 8.0 04/24/17 17:20 Hepatitis A IgM Ab Negative (NEGATIVE) 04/23/17 22:33 Hep Bs Antigen Negative (NEGATIVE) 04/23/17 22:33 Hep B Core IgM Ab Negative (NEGATIVE) 04/23/17 22:33 Hepatitis C Antibody Negative (NEGATIVE) 04/23/17 22:33 - Constitutional Appears: Other (Mild respiratory distress.) - Head Exam Head Exam: ATRAUMATIC, NORMAL INSPECTION, NORMOCEPHALIC - Eye Exam Eye Exam: Normal appearance - ENT Exam ENT Exam: Mucous Membranes Moist - Neck Exam Neck Exam: Normal Inspection Additional comments: JVD neg. - Respiratory Exam Respiratory Exam: Rales (+ B/L.), Wheezes (+ B/L.), Respiratory Distress (Mild.) - Cardiovascular Exam Cardiovascular Exam: Tachycardia, REGULAR RHYTHM. absent: JVD, Murmur - GI/Abdominal Exam GI & Abdominal Exam: absent: Distended - Rectal Exam Rectal Exam: Deferred - Exam Additional comments: Deferred. - Extremities Exam Extremities Exam: Normal Inspection. absent: Pedal Edema - Back Exam Back Exam: NORMAL INSPECTION - Neurological Exam Neurological Exam: Alert, Awake - Psychiatric Exam Psychiatric exam: Normal Affect, Normal Mood - Skin Skin Exam: Normal Color, Warm. absent: Pallor Assessment and Plan - Assessment and Plan (Free Text) Assessment: Respiratory congestion. R/O worsening of PNA. R/O CHF. R/O cardiac event. Sinus tachycardia. LLL PNA. Left pleural effusion. R/O malignancy. HTN. Hypothyroidism. Plan: Lasix 40 mg IV stat. DC IV fluid. EKG stat.-----> Sinus tachycardia. Troponin stat. CXR-portable stat.----------> Duoneb neb treatment stat. ABG stat.------>7.38/39/83/23.1. Continue present management. Will contact PMD prn after all data are collected. Discussed with Household Worker. Will transfer patient to ICU.
[2017-04-25] MEDS ORDERED: Albuterol-Ipratrop 3 mg / 0.5 (3 ml) UD IH PRN (00:07)
[2017-04-25 00:20] LABS: ARTERIAL BLOOD GAS HCO3 23.1 mmol/L (21-28); ARTERIAL BLOOD GAS O2 CAPACITY 16.2 mL/dl (16-24); ARTERIAL BLOOD GAS O2 CONTENT 15.8 ML/dl (15-23); ARTERIAL BLOOD GAS PH 7.38 (7.35-7.45); ARTERIAL BLOOD HGB O2 SAT 94.8 % (95.0-98.0); CARBOXYHEMOGLOBIN 1.7 % (0.5-1.5); HHB 2.4 % (0-5)
[2017-04-25 00:41] LABS: BASO # 0.04 K/mm3 (0.0-2.0); BASO % 0.2 % (0.0-3.0); EOS # 0.1 (0.0-0.7); EOS % 0.4 % (1.5-5.0); GRAN # 10.99 (1.4-6.5); HEMATOCRIT 36.3 % (42.0-52.0); LYMPH # 2.2 (1.2-3.4); LYMPH % 13.7 % (22.0-35.0); MEAN CELL VOLUME 93.3 fl (80.0-105.0); MEAN CORPUSCULAR HEMOGLOBIN 32.4 pg (25.0-35.0); MEAN CORPUSCULAR HGB CONC 34.7 g/dl (31.0-37.0); MEAN PLATELET VOLUME 9.5 fl (7.0-11.0); MONO # 3.1 (0.1-0.6); MONO % 18.7 % (1.0-6.0); RED CELL DISTRIBUTION WIDTH 14.4 % (11.5-14.5); WHITE BLOOD COUNT 16.4 10^3/ul (4.5-11.0)
[2017-04-25 00:52] LABS: ALB/GLOB RATIO 0.7 (1.1-1.8); ALKALINE PHOSPHATASE 152 U/L (38-126); ALT/SGPT 42 U/L (7-56); AST/SGOT 52 U/L (17-59); BILIRUBIN,TOTAL 2.9 mg/dL (0.2-1.3); BLOOD UREA NITROGEN 33 mg/dL (7-21); CALCIUM 8.7 mg/dL (8.4-10.5); CARBON DIOXIDE 25 mmol/L (21-33); CHLORIDE 110 mmol/L (98-107); GFR AFRICAN-AMERICAN > 60; GLUCOSE,RANDOM 131 mg/dL (70-110); POTASSIUM 3.7 mmol/L (3.6-5.0); SODIUM 144 mmol/L (132-148); TOTAL PROTEIN 5.6 g/dL (5.8-8.3)
[2017-04-25 01:09] LABS: TROPONIN I 0.02 ng/mL
--- NOTE | 2017-04-25 01:54 | CP.PCM.CON ---
<Autumn Mesa - Last Filed: 04/25/17 06:32> History of Present Illness - History of Present Illness History of Present Illness: PGY-2 ICU Consult note 76 yo male with past medical history of dementia, hypothyriodism, HTN, alcohol abuse was consulted for dyspnea. Patient initially presented to hospital with family for weakness, weight loss and decreased appetite. He was found to have left sided pleural effusion on ct chest and xray. This afternoon patient had thorcentesis with removal of 30cc of serosanguineous fluid. Per nurse patient became short of breath with increased work of breathing. Patient is speaking in short sentences. PMH: hypothyriodism, HTN, alcohol abuse PSH: left eye cataract social history: former heavy alcohol use, denies smoking and illicit earnest use allergies: nkda Review of Systems - Review of Systems Systems not reviewed;Unavailable: Respiratory Distress, Dementia Past Patient History - Infectious Disease Hx of Infectious Diseases: None - Past Social History Smoking Status: Former Smoker - CARDIAC Hx Cardiac Disorders: No Hx Angina: No Hx Cardia Arrhythmia: No Hx Circulatory Problems: No Hx Congestive Heart Failure: No Hx Heart Murmur: No Hx Heart Transplant: No Hx Hypercholesterolemia: No Hx Hypertension: Yes Hx Internal Defibrillator: No Hx Mitral Valve Prolapse: No Hx Pacemaker: No Hx Peripheral Edema: No Hx Peripheral Vascular Disease: No - PULMONARY Hx Respiratory Disorders: No Hx Asthma: No Hx Bronchitis: No Hx Chronic Obstructive Pulmonary Disease (COPD): No Hx Emphysema: No Hx Pneumonia: No Hx Respiratory Aspiration: No Hx Respiratory Tract Infection: No Hx Sleep Apnea: No Hx Tuberculosis: No - NEUROLOGICAL Hx Neurological Disorder: No Hx Alzheimer's Disease: No HX Cerebrovascular Accident: No Hx Dementia: Yes Hx Dizziness: No Hx Meningitis: Yes (Headaches) Hx Migraine: Yes Hx Parkinson's Disease: No Hx Seizures: No Hx Transient Ischemic Attacks (TIA): Yes - HEENT Hx HEENT Problems: Yes (sore throat; patient family states it has been a year) Hx Blind: No Hx Cataracts: Yes (left eye) Hx Deafness: No Hx Difficulty Chewing: No Hx Epistaxis: No Hx Glaucoma: No Hx Macular Degeneration: No - RENAL Hx Chronic Kidney Disease: No Hx Dialysis: No Hx Kidney Stones: No Hx Neurogenic Bladder: No Hx Pyelonephritis: No Hx Renal (Kidney) Cancer: No Hx Renal Failure: No - ENDOCRINE/METABOLIC Hx Endocrine Disorders: No Hx Adrenal Cancer: No Hx Diabetes Insipidus: No Hx Diabetes Mellitus Type 1: No Hx Diabetes Mellitus Type 2: No Hx Hyperthyroidism: No Hx Hypothyroidism: Yes Hx Systemic Lupus Erythematosus: No - HEMATOLOGICAL/ONCOLOGICAL Hx Blood Disorders: No Hx AIDS: No Hx Cancer: No Hx Chemotherapy: No Hx Hemophilia: No Hx Hepatitis A: No Hx Hepatitis B: No Hx Hepatitis C: No Hx Human Immunodeficiency Virus (HIV): No Hx Metastesis: No Hx Shingles: No Hx Sickle Cell Disease: No Hx Unexplained Bleeding: No - INTEGUMENTARY Hx Dermatological Problems: No Hx Basil Cell: No Hx Eczema: Yes (family states around the ears) Hx Melanoma: No Hx Psoriasis: No Hx Squamous Cell: No - MUSCULOSKELETAL/RHEUMATOLOGICAL Hx Musculoskeletal Disorders: No Hx Arthritis: No Hx Back Pain: No Hx Degenerative Joint Disease: No Hx Falls: Yes Hx Fractures: No Hx Gout: No Hx Herniated Disk: No Hx Myasthenia Gravis: No Hx Osteoarthritis: No Hx Osteomyelitis: No Hx Osteoporosis: No Hx Rhabdomyolysis: No Hx Spinal Stenosis: No Hx Unsteady Gait: Yes - GASTROINTESTINAL Hx Gastrointestinal Disorders: No Hx Colostomy: No Hx Crohn's Disease: No Hx Diverticulitis: No Hx Gall Bladder Disease: No Hx Gastroesophageal Reflux: Yes Hx Ileostomy: No Hx Liver Failure: No Hx Pancreatitis: No HX Swallowing Problems: Yes Hx Ulcer: No - GENITOURINARY/GYNECOLOGICAL Hx Genitourinary Disorders: No Hx Hematuria: No Hx Incontinence: No Hx Prostate Problems: No Hx Sexually Transmitted Disorders: No Hx Urinary Tract Infection: No - PSYCHIATRIC Hx Psychophysiologic Disorder: No Hx Anxiety: No Hx Bipolar Disorder: No Hx Depression: No Hx Hallucinations: No Hx Panic Symptoms: No Hx Psychosis: No Hx Schizophrenia: No Hx Sexual Abuse: No - SURGICAL HISTORY Hx Surgeries: No Hx Cardiac Catheterization: No Hx Coronary Stent: No Meds Allergies/Adverse Reactions: Allergies Allergy/AdvReac Type Severity Reaction Status Date / Time No Known Allergies Allergy Verified 04/23/17 11:21 - Medications Medications: Current Medications Acetaminophen (Tylenol 325mg Tab) 650 mg PO Q6H PRN PRN Reason: Fever >100.4 F Albuterol/Ipratropium (Duoneb 3 Mg/0.5 Mg (3 Ml) Ud) 3 ml IH [id number] CEM Last Admin: 04/24/17 19:24 Dose: 3 ml Albuterol/Ipratropium (Duoneb 3 Mg/0.5 Mg (3 Ml) Ud) 3 ml IH Q2H PRN PRN Reason: Shortness of Breath Last Admin: 04/24/17 23:34 Dose: 3 ml Albuterol/Ipratropium (Duoneb 3 Mg/0.5 Mg (3 Ml) Ud) 3 ml IH Q2H PRN PRN Reason: Shortness of Breath Last Admin: 04/25/17 00:30 Dose: 3 ml Guaifenesin/Dextromethorphan (Robitussin Dm) 5 ml PO Q6H PRN PRN Reason: Cough Azithromycin (Zithromax 500mg In Ns) 500 mg in 250 mls @ 167 mls/hr IVPB DAILY [facility] PRN Reason: Protocol Last Admin: 04/24/17 09:51 Dose: 167 mls/hr Meropenem 1 gm/ Dextrose 100 mls @ 100 mls/hr IVPB Q12H [facility] PRN Reason: Protocol Stop: 05/03/17 06:31 Last Admin: 04/24/17 17:57 Dose: 100 mls/hr Ondansetron HCl (Zofran Inj) 4 mg IVP Q6H PRN PRN Reason: Nausea/Vomiting Pantoprazole Sodium (Protonix Inj) 40 mg IVP DAILY [facility] Last Admin: 04/24/17 09:52 Dose: 40 mg Physical Exam - Constitutional Appears: In Acute Distress - Head Exam Head Exam: ATRAUMATIC, NORMAL INSPECTION, NORMOCEPHALIC - Eye Exam Eye Exam: Normal appearance - Respiratory Exam Respiratory Exam: Accessory Muscle Use (increase work of breathing ), Rales, Rhonchi - Cardiovascular Exam Cardiovascular Exam: Tachycardia, REGULAR RHYTHM, +S1, +S2. absent: Diastolic murmur, Systolic Murmur - GI/Abdominal Exam GI & Abdominal Exam: Normal Bowel Sounds, Soft. absent: Diminished Bowel Sounds , Distended, Firm, Guarding, Tenderness - Extremities Exam Extremities exam: Positive for: normal inspection. Negative for: pedal edema, tenderness - Neurological Exam Neurological exam: Alert - Skin Skin Exam: Dry, Intact, Normal Color, Warm Results - Vital Signs Recent Vital Signs: Last Vital Signs Temp 98.1 F 04/25/17 00:01 Pulse 119 H 04/25/17 00:01 Resp 19 04/25/17 00:01 BP 128/56 L 04/25/17 00:24 Pulse Ox 91 L 04/25/17 00:01 - Labs Result Diagrams: 04/25/17 00:20 04/25/17 00:20 Labs: Laboratory Results - last 24 hr 04/23/17 04/24/17 04/24/17 22:33 08:30 09:00 WBC 14.9 H RBC 3.94 Hgb 12.3 L D Hct 37.2 L MCV 94.4 MCH 31.2 MCHC 33.1 RDW 14.2 Plt Count 204 MPV 9.6 Gran % 67.6 Lymph % (Auto) 15.1 L Mower % (Auto) 16.2 H Eos % (Auto) 0.5 L Baso % (Auto) 0.6 Gran # 10.06 H Lymph # 2.3 Mower # 2.4 H Eos # 0.1 Baso # 0.09 PT INR pCO2 pO2 HCO3 ABG pH ABG Total CO2 ABG O2 Saturation ABG O2 Content ABG Base Excess ABG Hemoglobin ABG Carboxyhemoglobin POC ABG HHb (Measured) ABG Methemoglobin ABG O2 Capacity Hgb O2 Saturation FiO2 Sodium Potassium Chloride Carbon Dioxide Anion Gap BUN Creatinine Est GFR ( Amer) Est GFR (Non-Af Amer) Random Glucose Lactic Acid Calcium Total Bilirubin AST ALT Alkaline Phosphatase Troponin I Total Protein Albumin Globulin Albumin/Globulin Ratio Carcinoembryonic Ag Procalcitonin 3.89 H Urine Color Urine Appearance Urine pH Ur Specific Catron Urine Protein Urine Glucose (UA) Urine Ketones Urine Blood Urine Nitrate Urine Bilirubin Urine Urobilinogen Ur Leukocyte Esterase Urine RBC Urine WBC Ur Epithelial Cells Fluid Source Fluid Appearance Fluid WBC Fluid RBC Fluid Tot Cell Count Fluid Neutrophils Fluid Lymphocytes Fld Monocyte/Macrophag Fluid Comment Pleural pH Hepatitis A IgM Ab Negative Hep Bs Antigen Negative Hep B Core IgM Ab Negative Hepatitis C Antibody Negative 04/24/17 04/24/17 04/24/17 09:00 09:00 11:16 WBC RBC Hgb Hct MCV MCH MCHC RDW Plt Count MPV Gran % Lymph % (Auto) Mower % (Auto) Eos % (Auto) Baso % (Auto) Gran # Lymph # Mower # Eos # Baso # PT 20.9 H INR 1.88 H pCO2 pO2 HCO3 ABG pH ABG Total CO2 ABG O2 Saturation ABG O2 Content ABG Base Excess ABG Hemoglobin ABG Carboxyhemoglobin POC ABG HHb (Measured) ABG Methemoglobin ABG O2 Capacity Hgb O2 Saturation FiO2 Sodium 145 Potassium 4.0 Chloride 113 H Carbon Dioxide 21 Anion Gap 15 BUN 36 H Creatinine 1.1 Est GFR ( Amer) > 60 Est GFR (Non-Af Amer) > 60 Random Glucose 154 H Lactic Acid Calcium 8.5 Total Bilirubin 3.2 H AST 38 ALT 43 Alkaline Phosphatase 122 Troponin I Total Protein 5.4 L Albumin 2.4 L Globulin 3.1 Albumin/Globulin Ratio 0.8 L Carcinoembryonic Ag 2.5 Procalcitonin Urine Color Urine Appearance Urine pH Ur Specific Catron Urine Protein Urine Glucose (UA) Urine Ketones Urine Blood Urine Nitrate Urine Bilirubin Urine Urobilinogen Ur Leukocyte Esterase Urine RBC Urine WBC Ur Epithelial Cells Fluid Source Fluid Appearance Fluid WBC Fluid RBC Fluid Tot Cell Count Fluid Neutrophils Fluid Lymphocytes Fld Monocyte/Macrophag Fluid Comment Pleural pH Hepatitis A IgM Ab Hep Bs Antigen Hep B Core IgM Ab Hepatitis C Antibody 04/24/17 04/24/17 04/24/17 15:00 17:20 17:20 WBC RBC Hgb Hct MCV MCH MCHC RDW Plt Count MPV Gran % Lymph % (Auto) Mower % (Auto) Eos % (Auto) Baso % (Auto) Gran # Lymph # Mower # Eos # Baso # PT INR pCO2 pO2 HCO3 ABG pH ABG Total CO2 ABG O2 Saturation ABG O2 Content ABG Base Excess ABG Hemoglobin ABG Carboxyhemoglobin POC ABG HHb (Measured) ABG Methemoglobin ABG O2 Capacity Hgb O2 Saturation FiO2 Sodium Potassium Chloride Carbon Dioxide Anion Gap BUN Creatinine Est GFR ( Amer) Est GFR (Non-Af Amer) Random Glucose Lactic Acid Calcium Total Bilirubin AST ALT Alkaline Phosphatase Troponin I Total Protein Albumin Globulin Albumin/Globulin Ratio Carcinoembryonic Ag Procalcitonin Urine Color Yellow Urine Appearance Clear Urine pH 6.0 Ur Specific Catron 1.015 Urine Protein 30 H Urine Glucose (UA) Negative Urine Ketones Negative Urine Blood Negative Urine Nitrate Negative Urine Bilirubin Small H Urine Urobilinogen 4.0 H Ur Leukocyte Esterase Negative Urine RBC 0 - 2 Urine WBC 0 - 2 Ur Epithelial Cells 1 - 3 Fluid Source Pleural Fluid Appearance Bloody Fluid WBC 430.0 H Fluid RBC 14512.0 H Fluid Tot Cell Count 100 H Fluid Neutrophils 25.0 H Fluid Lymphocytes 35.0 H Fld Monocyte/Macrophag 40 H Fluid Comment TEST NOT PERFORMED Pleural pH 8.0 Hepatitis A IgM Ab Hep Bs Antigen Hep B Core IgM Ab Hepatitis C Antibody 04/25/17 04/25/17 04/25/17 00:18 00:20 00:20 WBC 16.4 H RBC 3.89 Hgb 12.6 L Hct 36.3 L MCV 93.3 MCH 32.4 MCHC 34.7 RDW 14.4 Plt Count 195 MPV 9.5 Gran % 67.0 Lymph % (Auto) 13.7 L Mower % (Auto) 18.7 H Eos % (Auto) 0.4 L Baso % (Auto) 0.2 Gran # 10.99 H Lymph # 2.2 Mower # 3.1 H Eos # 0.1 Baso # 0.04 PT INR pCO2 39 pO2 83.0 HCO3 23.1 ABG pH 7.38 ABG Total CO2 24.3 ABG O2 Saturation 97.5 ABG O2 Content 15.8 ABG Base Excess -1.8 ABG Hemoglobin 11.8 ABG Carboxyhemoglobin 1.7 H POC ABG HHb (Measured) 2.4 ABG Methemoglobin 1.0 ABG O2 Capacity 16.2 Hgb O2 Saturation 94.8 L FiO2 32.0 Sodium 144 Potassium 3.7 Chloride 110 H Carbon Dioxide 25 Anion Gap 13 BUN 33 H Creatinine 1.0 Est GFR ( Amer) > 60 Est GFR (Non-Af Amer) > 60 Random Glucose 131 H Lactic Acid Calcium 8.7 Total Bilirubin 2.9 H AST 52 ALT 42 Alkaline Phosphatase 152 H D Troponin I 0.02 Total Protein 5.6 L Albumin 2.3 L Globulin 3.3 Albumin/Globulin Ratio 0.7 L Carcinoembryonic Ag Procalcitonin Urine Color Urine Appearance Urine pH Ur Specific Catron Urine Protein Urine Glucose (UA) Urine Ketones Urine Blood Urine Nitrate Urine Bilirubin Urine Urobilinogen Ur Leukocyte Esterase Urine RBC Urine WBC Ur Epithelial Cells Fluid Source Fluid Appearance Fluid WBC Fluid RBC Fluid Tot Cell Count Fluid Neutrophils Fluid Lymphocytes Fld Monocyte/Macrophag Fluid Comment Pleural pH Hepatitis A IgM Ab Hep Bs Antigen Hep B Core IgM Ab Hepatitis C Antibody 04/25/17 00:20 WBC RBC Hgb Hct MCV MCH MCHC RDW Plt Count MPV Gran % Lymph % (Auto) Mower % (Auto) Eos % (Auto) Baso % (Auto) Gran # Lymph # Mower # Eos # Baso # PT INR pCO2 pO2 HCO3 ABG pH ABG Total CO2 ABG O2 Saturation ABG O2 Content ABG Base Excess ABG Hemoglobin ABG Carboxyhemoglobin POC ABG HHb (Measured) ABG Methemoglobin ABG O2 Capacity Hgb O2 Saturation FiO2 Sodium Potassium Chloride Carbon Dioxide Anion Gap BUN Creatinine Est GFR ( Amer) Est GFR (Non-Af Amer) Random Glucose Lactic Acid 2.1 Calcium Total Bilirubin AST ALT Alkaline Phosphatase Troponin I Total Protein Albumin Globulin Albumin/Globulin Ratio Carcinoembryonic Ag Procalcitonin Urine Color Urine Appearance Urine pH Ur Specific Catron Urine Protein Urine Glucose (UA) Urine Ketones Urine Blood Urine Nitrate Urine Bilirubin Urine Urobilinogen Ur Leukocyte Esterase Urine RBC Urine WBC Ur Epithelial Cells Fluid Source Fluid Appearance Fluid WBC Fluid RBC Fluid Tot Cell Count Fluid Neutrophils Fluid Lymphocytes Fld Monocyte/Macrophag Fluid Comment Pleural pH Hepatitis A IgM Ab Hep Bs Antigen Hep B Core IgM Ab Hepatitis C Antibody Assessment & Plan - Assessment and Plan (Free Text) Assessment: 76 yo male with past medical history of dementia, hypothyriodism, HTN, alcohol abuse was consulted for dysnea. Patient continues to have increased work of breathing will transfer to ICU for further monitoring Plan: Neurology - Patient has history of dementia - continue to monitor cardiovascular - history of HTN - currently hemodynamically stable - continue to monitor - maintain map>65 Pulmonary - dyspnea, most likely due to fluid overload, patient was on IVF for sepsis - CT showed large left sided pleural effusion - abg shows hypoxemia - repeat cxr- official read pending - patient was given lasix 40mg IV and duonebs given dyspnea improved SaO2 improved - patient continues to have increased work of breathing will transfer to ICU for further monitoring - place on bipap - continue duonebs q2 prn - continue abx, azithromycin and meropenem - serology from throcentesis pending - aspiration precautions, HOB >35 GI - stable - high risk of aspiration, aspiration precautions - continue protonix for prophalaxis renal - strict I&O - continue to monitor - replace electrolytes as needed ID - a febrile with leukocytosis - possible PNA - procalcitonin elevated - legionella pending - currently on meropenum and azithromycin - maintain euthermia - ID consulted endo - history of hypothyriodism - not on any medications - maintain blood sugars between 140-180 <Dolores MUNOZ,Timothy - Last Filed: 04/26/17 09:31> Meds - Medications Medications: Current Medications Acetaminophen (Tylenol 325mg Tab) 650 mg PO Q6H PRN PRN Reason: Fever >100.4 F Albuterol/Ipratropium (Duoneb 3 Mg/0.5 Mg (3 Ml) Ud) 3 ml IH [id number] [facility] Last Admin: 04/26/17 07:32 Dose: 3 ml Albuterol/Ipratropium (Duoneb 3 Mg/0.5 Mg (3 Ml) Ud) 3 ml IH Q2H PRN PRN Reason: Shortness of Breath Last Admin: 04/24/17 23:34 Dose: 3 ml Albuterol/Ipratropium (Duoneb 3 Mg/0.5 Mg (3 Ml) Ud) 3 ml IH Q2H PRN PRN Reason: Shortness of Breath Last Admin: 04/25/17 00:30 Dose: 3 ml Guaifenesin/Dextromethorphan (Robitussin Dm) 5 ml PO Q6H PRN PRN Reason: Cough Hydrocortisone Sodium Succinate (Solu-Cortef) 50 mg IVP Q6H [facility] Last Admin: 04/26/17 06:19 Dose: 50 mg Azithromycin (Zithromax 500mg In Ns) 500 mg in 250 mls @ 167 mls/hr IVPB DAILY [facility] PRN Reason: Protocol Last Admin: 04/25/17 12:45 Dose: Not Given Meropenem 1 gm/ Dextrose 100 mls @ 100 mls/hr IVPB Q12H [facility] PRN Reason: Protocol Stop: 05/03/17 06:31 Last Admin: 04/26/17 06:13 Dose: 100 mls/hr Fentanyl Citrate (Fentanyl Citrate/Sodium Chloride 1 Mg/100 Ml) 1,000 mcg in 100 mls @ 2 mls/hr IV .Q24H PRN; Protocol; 20 MCG/HR PRN Reason: TITRATE PER MD ORDER Last Admin: 04/26/17 04:29 Dose: 200 mcg/hr, 20 mls/hr Vasopressin 20 units/ Dextrose 101 mls @ 9.09 mls/hr IV .Q11H7M [facility]; 0.03 U/MIN PRN Reason: Protocol Last Admin: 04/25/17 23:36 Dose: 9.09 mls/hr Vancomycin HCl (Vancomycin 1gm) 1 gm in 250 mls @ 167 mls/hr IVPB Q12H [facility] PRN Reason: Protocol Last Admin: 04/26/17 05:02 Dose: 167 mls/hr Norepinephrine Bitartrate 8 mg (/ Sodium Chloride) 258 mls @ 7.74 mls/hr IV .Q24H PRN; Protocol; 4 MCG/MIN PRN Reason: TITRATE PER PROTOCOL Last Admin: 04/26/17 06:22 Dose: 20 mcg/min, 38.7 mls/hr Epinephrine HCl 1 mg/ Sodium (Chloride) 51 mls @ 3.06 mls/hr IV .Q02P34N PRN; Protocol; 1 MCG/MIN PRN Reason: TITRATE PER MD ORDER Last Admin: 04/26/17 04:31 Dose: 2 mcg/min, 6.12 mls/hr Midazolam HCl (Versed Inj) 1 mg IVP Q2 PRN PRN Reason: Agitation Last Admin: 04/25/17 12:49 Dose: 1 mg Ondansetron HCl (Zofran Inj) 4 mg IVP Q6H PRN PRN Reason: Nausea/Vomiting Pantoprazole Sodium (Protonix Inj) 40 mg IVP DAILY [facility] Last Admin: 04/25/17 12:44 Dose: Not Given Results - Vital Signs Recent Vital Signs: Last Vital Signs Temp 98.0 F 04/26/17 04:00 Pulse 79 04/26/17 08:50 Resp 18 04/26/17 08:24 BP 110/69 04/26/17 08:50 Pulse Ox 99 04/26/17 08:50 - Labs Result Diagrams: 04/26/17 05:30 04/26/17 05:30 Labs: Laboratory Results - last 24 hr 04/24/17 04/25/17 04/25/17 08:30 13:10 18:17 WBC RBC Hgb Hct MCV MCH MCHC RDW Plt Count MPV Gran % Lymph % (Auto) Mower % (Auto) Eos % (Auto) Baso % (Auto) Gran # Lymph # Mower # Eos # Baso # APTT pCO2 39 pO2 108.0 H HCO3 22.5 ABG pH 7.37 ABG Total CO2 23.7 ABG O2 Saturation 99.1 H ABG O2 Content 16.5 ABG Base Excess -2.5 L ABG Hemoglobin 12.0 ABG Carboxyhemoglobin 1.6 H POC ABG HHb (Measured) 0.9 ABG Methemoglobin 0.8 ABG O2 Capacity 16.6 Hgb O2 Saturation 96.7 FiO2 40.0 Sodium Potassium Chloride Carbon Dioxide Anion Gap BUN Creatinine Est GFR ( Amer) Est GFR (Non-Af Amer) Random Glucose Calcium Total Bilirubin AST ALT Alkaline Phosphatase Total Protein Albumin Globulin Albumin/Globulin Ratio Pleural pH 6.5 HIV 1&2 Ag/Ab, 4th Gen Nonreactive 04/26/17 04/26/17 04/26/17 05:30 05:30 05:30 WBC 18.6 H RBC 3.92 Hgb 12.4 L Hct 37.5 L MCV 95.7 MCH 31.6 MCHC 33.1 RDW 14.8 H Plt Count 210 MPV 9.7 Gran % 82.8 H Lymph % (Auto) 8.7 L Mower % (Auto) 8.3 H Eos % (Auto) 0.0 L Baso % (Auto) 0.2 Gran # 15.40 H Lymph # 1.6 Mower # 1.6 H Eos # 0.0 Baso # 0.04 APTT 38.2 H pCO2 pO2 HCO3 ABG pH ABG Total CO2 ABG O2 Saturation ABG O2 Content ABG Base Excess ABG Hemoglobin ABG Carboxyhemoglobin POC ABG HHb (Measured) ABG Methemoglobin ABG O2 Capacity Hgb O2 Saturation FiO2 Sodium 149 H Potassium 4.0 Chloride 117 H Carbon Dioxide 22 Anion Gap 14 BUN 38 H Creatinine 0.8 Est GFR ( Amer) > 60 Est GFR (Non-Af Amer) > 60 Random Glucose 204 H Calcium 8.0 L Total Bilirubin 2.8 H AST 42 ALT 43 Alkaline Phosphatase 138 H Total Protein 5.3 L Albumin 2.2 L Globulin 3.2 Albumin/Globulin Ratio 0.7 L Pleural pH HIV 1&2 Ag/Ab, 4th Gen Attending/Attestation - Attestation I have personally seen and examined this patient.: Yes I have fully participated in the care of the patient.: Yes I have reviewed all pertinent clinical information: Yes Notes (Text): -I agree with the above ICU consult note completed by the resident physician with the following additions and/or changes: -The patient is a 76 year old man with a history of dementia, hypothyriodism, HTN, alcohol abuse admitted for sepsis due to left pleural effusion and PNA. Overnight, the patient suddenly developed hypoxia and sinus tachycardia (with minimal response to stat IV Lasix and Duo-neb treatments). As a result, he will be upgraded to the ICU and started on Bipap therapy. Threshold for intubation is low. Repeat ABG with AM labs.
[2017-04-25] MEDS: Albuterol-Ipratrop 3 mg / 0.5 (3 ml) UD IH SCH ×4 (02:15→20:00)
[2017-04-25] MEDS ORDERED: Sodium Chloride 0.9% 250 ML IV SCH (03:15)
[2017-04-25] MEDS ORDERED: Propofol 10 mg/ml Inj (20 ML) ONE (04:49)
[2017-04-25] MEDS: Meropenem 1 GM in Dextrose 5% In Water 100 ML IVPB SCH ×2 (05:30→18:47)
[2017-04-25 05:59] LABS: ARTERIAL BLOOD GAS HCO3 23.6 mmol/L (21-28); ARTERIAL BLOOD GAS PH 7.39 (7.35-7.45)
[2017-04-25 06:32] LABS: BASO # 0.06 K/mm3 (0.0-2.0); BASO % 0.4 % (0.0-3.0); EOS # 0.1 (0.0-0.7); EOS % 0.6 % (1.5-5.0); GRAN # 11.12 (1.4-6.5); GRAN % 68.3 % (50.0-68.0); HEMATOCRIT 34.7 % (42.0-52.0); LYMPH # 2.1 (1.2-3.4); MEAN CELL VOLUME 94.8 fl (80.0-105.0); MEAN CORPUSCULAR HEMOGLOBIN 31.7 pg (25.0-35.0); MEAN CORPUSCULAR HGB CONC 33.4 g/dl (31.0-37.0); MEAN PLATELET VOLUME 9.8 fl (7.0-11.0); MONO # 2.9 (0.1-0.6); MONO % 17.7 % (1.0-6.0); RED CELL DISTRIBUTION WIDTH 14.4 % (11.5-14.5); WHITE BLOOD COUNT 16.3 10^3/ul (4.5-11.0)
[2017-04-25 07:09] LABS: ALB/GLOB RATIO 0.7 (1.1-1.8); ALKALINE PHOSPHATASE 155 U/L (38-126); ALT/SGPT 49 U/L (7-56); AST/SGOT 58 U/L (17-59); BILIRUBIN,TOTAL 3.1 mg/dL (0.2-1.3); BLOOD UREA NITROGEN 35 mg/dL (7-21); CALCIUM 8.6 mg/dL (8.4-10.5); CARBON DIOXIDE 27 mmol/L (21-33); CHLORIDE 112 mmol/L (98-107); GFR AFRICAN-AMERICAN > 60; GLUCOSE,RANDOM 131 mg/dL (70-110); POTASSIUM 3.8 mmol/L (3.6-5.0); SODIUM 147 mmol/L (132-148); TOTAL PROTEIN 5.2 g/dL (5.8-8.3)
[2017-04-25] MEDS: Azithromycin 500MG/NS 250ml 500 MG/250 ML BAG IVPB SCH ×2 (08:28→12:45)
--- NOTE | 2017-04-25 09:19 | RAD ---
HISTORY: congestion COMPARISON: 04/23/2017 FINDINGS: LUNGS: No change in left-sided opacification and loculated pleural effusions. There is mediastinal shift to the right PLEURA: Loculated pleural effusions CARDIOVASCULAR: Moderate cardiomegaly OSSEOUS STRUCTURES: No significant abnormalities. VISUALIZED UPPER ABDOMEN: Normal. OTHER FINDINGS: None. IMPRESSION: Large loculated pleural effusions on the left unchanged
--- NOTE | 2017-04-25 09:55 | CP.PCM.PN ---
Subjective - Date & Time of Evaluation Date of Evaluation: 04/25/17 Time of Evaluation: 09:40 - Subjective Subjective: On BiPAP, looks weak, no fevers overnight, waiting further drainage of the pleural fluid on the left. Objective - Vital Signs/Intake and Output Vital Signs (last 24 hours): Temp Pulse Resp BP Pulse Ox 98.1 F 102 H 35 H 113/54 L 100 04/25/17 00:01 04/25/17 05:40 04/25/17 05:40 04/25/17 05:00 04/25/17 05:40 Intake and Output: 04/24/17 04/25/17 18:59 06:59 Intake Total 480 Output Total 200 Balance 280 - Medications Medications: Current Medications Acetaminophen (Tylenol 325mg Tab) 650 mg PO Q6H PRN PRN Reason: Fever >100.4 F Albuterol/Ipratropium (Duoneb 3 Mg/0.5 Mg (3 Ml) Ud) 3 ml IH [id number] [facility] Last Admin: 04/24/17 19:24 Dose: 3 ml Albuterol/Ipratropium (Duoneb 3 Mg/0.5 Mg (3 Ml) Ud) 3 ml IH Q2H PRN PRN Reason: Shortness of Breath Last Admin: 04/24/17 23:34 Dose: 3 ml Albuterol/Ipratropium (Duoneb 3 Mg/0.5 Mg (3 Ml) Ud) 3 ml IH Q2H PRN PRN Reason: Shortness of Breath Last Admin: 04/25/17 00:30 Dose: 3 ml Guaifenesin/Dextromethorphan (Robitussin Dm) 5 ml PO Q6H PRN PRN Reason: Cough Azithromycin (Zithromax 500mg In Ns) 500 mg in 250 mls @ 167 mls/hr IVPB DAILY [facility] PRN Reason: Protocol Last Admin: 04/24/17 09:51 Dose: 167 mls/hr Meropenem 1 gm/ Dextrose 100 mls @ 100 mls/hr IVPB Q12H [facility] PRN Reason: Protocol Stop: 05/03/17 06:31 Last Admin: 04/25/17 05:30 Dose: 100 mls/hr Ondansetron HCl (Zofran Inj) 4 mg IVP Q6H PRN PRN Reason: Nausea/Vomiting Pantoprazole Sodium (Protonix Inj) 40 mg IVP DAILY [facility] Last Admin: 04/24/17 09:52 Dose: 40 mg - Labs Labs: 04/25/17 00:20 04/25/17 00:20 PT 20.9 SECONDS (9.4-12.5) H 04/24/17 11:16 INR 1.88 (0.93-1.08) H 04/24/17 11:16 - Constitutional Appears: Chronically Ill - Head Exam Head Exam: NORMAL INSPECTION - ENT Exam Additional comments: BiPAP mask in place - Neck Exam Neck Exam: absent: Meningismus - Respiratory Exam Respiratory Exam: Decreased Breath Sounds (on the left side) - Cardiovascular Exam Cardiovascular Exam: +S1, +S2 - GI/Abdominal Exam GI & Abdominal Exam: Soft. absent: Tenderness Assessment and Plan - Assessment and Plan (Free Text) Plan: Assessment Severe sepsis due to left sided severe community-acquired aspiration pneumonia with left sided pleural effusion S/P thoracentesis history of alcohol abuse hypothyroidism cataracts S/P left eye surgery HTN dementia Plan continue Merrem and Zithromax day 2 pending final blood cx and pleural fluid cx ; awaiting further plans to drain the pleural effusion will monitor clinically
[2017-04-25] MEDS ORDERED: Sodium Chloride 0.9% 1,000 ML IV STA ×2 (11:25→16:15)
[2017-04-25] MEDS ORDERED: NOREPINEPHRINE BIT/0.9 % NACL 4 MG/250 ML BAG IV PRN (11:34)
[2017-04-25] MEDS ORDERED: Etomidate 20 mg/10ml Inj IV ONE ×2 (11:37→11:40)
[2017-04-25] MEDS ORDERED: Midazolam 5 MG/5 ML VIAL IVP PRN (12:03)
[2017-04-25] MEDS: Fentanyl 1000mcg/100ml NS 1,000 MCG/100 ML BAG IV PRN ×3 (12:41→23:29)
[2017-04-25] MEDS ORDERED: Midazolam 2 MG/2 ML VIAL IVP ONE ×3 (12:46→16:54)
[2017-04-25] MEDS: Midazolam 2 MG/2 ML VIAL IVP PRN (12:49)
--- NOTE | 2017-04-25 12:54 | RAD ---
HISTORY: intubated COMPARISON: Chest x-ray performed 04/25/17 TECHNIQUE: Chest, one view. FINDINGS: Endotracheal tube tip is obscured by overlying nasogastric tube. The nasogastric tube extends expected location of the stomach. LUNGS: Extensive opacification of the left kalyan thorax similar to prior study with evidence of loculated pleural effusions. Mediastinal shift to the right. No definite pneumothorax. CARDIOVASCULAR: Obscured. OSSEOUS STRUCTURES: No acute osseous abnormality identified. VISUALIZED UPPER ABDOMEN: Unremarkable. OTHER FINDINGS: None. IMPRESSION: Endotracheal tube tip is obscured by overlying nasogastric tube. The nasogastric tube extends expected location of the stomach. Extensive opacification of the left kalyan thorax similar to prior study with evidence of loculated pleural effusions. Mediastinal shift to the right.
--- NOTE | 2017-04-25 13:13 | PCM.PROC ---
<Ramiro Alicia - Last Filed: 04/25/17 13:04> Procedures Attestation:: I certify that I have explained the specified Operation(s) or Procedure(s), risks, benefits and reasonable alternatives to the Patient and/or other person responsible. The opportunity was given to ask questions and all questions answered - Central Line Placement Right Internal Jugular Triple Lumen Catheter Aseptic technique was employed throughout the procedure: Hand Hygiene done prior to procedure, Full sterile barriers (mask, hair cover, sterile gown, sterile gloves), Full body sterile drape, Chloraprep Antiseptic: 30 second prep for IJ or SC sites CVP Time Out Performed: Yes Pt. Placed on Pulse Ox Monitor: Yes Central Line Prep: Chlorhexidine-Alcohol Combination Local Anesthesia Used: Lidocaine 1% Amount of Anesthesia Used (mls): 1 Ultrasound Used for Placement: Yes Central Line Lumen Inserted: triple Central Line Length: 20 cm Post Procedure: Sutured in Place, Good Blood Return, All Ports Aspirated, Flushed, Capped, Sterile Dressing Applied Secured by: Suture (and securement device) Post procedure dressing: Clear vapor permeable, Chlorhexidine disc (Biopatch) Post Procedure X-Ray: Yes Patient Tolerated Procedure: Well Immediate Complications: None <Emerson Araujo - Last Filed: 04/25/17 16:20> Attending/Attestation - Attestation I have personally seen and examined this patient.: Yes I have fully participated in the care of the patient.: Yes I have reviewed all pertinent clinical information, including history, physical exam and plan: Yes Notes (Text): 04/25/17 16:19I have been in the room throughout the procedure and directly supervised the procedure. Maximum barrier precautions used, real time ultrasound guidance, sterile seldinger technique, guidewire removed. sterile dressings applied. CXR ordered
[2017-04-25 13:18] LABS: ARTERIAL BLOOD GAS HCO3 22.5 mmol/L (21-28); ARTERIAL BLOOD GAS O2 CAPACITY 16.6 mL/dl (16-24); ARTERIAL BLOOD GAS O2 CONTENT 16.5 ML/dl (15-23); ARTERIAL BLOOD GAS PH 7.37 (7.35-7.45); ARTERIAL BLOOD HGB O2 SAT 96.7 % (95.0-98.0); CARBOXYHEMOGLOBIN 1.6 % (0.5-1.5); HHB 0.9 % (0-5); METHEMOGLOBIN 0.8 % (0.0-3.0)
[2017-04-25] MEDS ORDERED: Lidocaine 1% Inj (20ml) ONE (13:20)
[2017-04-25] MEDS: Vasopressin 20 UNITS in Dextrose 5% In Water 100 ML IV SCH ×2 (13:48→23:36)
--- NOTE | 2017-04-25 13:57 | RAD ---
HISTORY: s/p R IJ TLC COMPARISON: Earlier same day FINDINGS: LUNGS: No change in large left-sided loculated pleural effusion. There is a new right internal jugular line that terminates at the junction of the vena cava and right atrium. There is no pneumothorax PLEURA: No significant pleural effusion identified, no pneumothorax apparent. CARDIOVASCULAR: Normal. OSSEOUS STRUCTURES: No significant abnormalities. VISUALIZED UPPER ABDOMEN: Normal. OTHER FINDINGS: None. IMPRESSION: Right IJ line in satisfactory position. No pneumothorax
--- NOTE | 2017-04-25 18:12 | RAD ---
HISTORY: Post thoracentesis. Technique: Single view portable semi erect @ 17:53. Relevant interventional procedure(s): April 24, 2017. Left thoracentesis with retrieval of 30 cc of fluid COMPARISON: April 25, 2017. Time of the most recent examination: 13:08. FINDINGS: LUNGS: Persistent consolidative changes primarily affecting the left lung. PLEURA: No adverse findings following left thoracentesis. No change in left pleural effusion. CARDIOVASCULAR: Stable cardiomegaly Venous access catheter in stable, satisfactory position. OSSEOUS STRUCTURES: No significant abnormalities. VISUALIZED UPPER ABDOMEN: Normal. OTHER FINDINGS: Stable position of endotracheal tube and nasogastric tube. IMPRESSION: No significant interval change compared to the prior examination(s).
[2017-04-25] MEDS: Vancomycin 1gm in NS 250ml 1 GM/250 ML BAG IVPB SCH (18:48)
--- NOTE | 2017-04-25 19:45 | PN ---
DATE: SUBJECTIVE: The patient is a 76-year-old, seen and examined, has respiratory distress. This morning, we noted the patient was hypoxic, tachycardic, has gargling secretion in the throat, deep suctioning done. House doctor was called and the patient was transferred to ICU this morning. Later on after I saw the patient, he went into respiratory distress. He was intubated. Family was at bedside. PHYSICAL EXAMINATION: GENERAL: He looks very exhausted, tachycardic and short of breath. VITAL SIGNS: He is afebrile, pulse 80, respirations 14 and blood pressure 99/62. LUNGS: Bilateral soft crackles, more in the left lower lung base. HEART: S1 and S2 audible. ABDOMEN: Soft and nontender. No rebound. No guarding. NEUROLOGIC: The patient is sleepy, arousable only by verbal commands. LABORATORY DATA: WBC 16.3, hemoglobin 11.6, hematocrit 34.7 and platelets of 190. PT is 20.9, INR 1.88. Chemistry; sodium 147, potassium 3.8, chloride 112, CO2 27, BUN 35, creatinine 1.1, blood sugar of 131 and total bilirubin 3.1. HIV test is negative. Blood cultures are negative. ASSESSMENT AND PLAN: 1. Respiratory failure. 2. Left lower lobe loculated effusion. 3. History of alcohol abuse in the past. 4. Coagulopathy. 5. Leukocytosis. Discussed with the patient's son, Roldan, who was at the bedside. Prognosis is poor. We will consult thoracic surgeon for possible pleural biopsy. We will continue on current nebulizer treatment. The patient is on meropenem, has been started on Levophed. Analgesics as needed. Continue vent support. The patient's family was asked about DNR. They will think about it. Tony Ochoa MD
--- NOTE | 2017-04-25 19:54 | CP.PCM.CON ---
History of Present Illness - History of Present Illness History of Present Illness: Consult for CT surgery (Dr. Denson) and General Surgery (Dr. Gamino) HPI: pt is a 76 year old male who was brought to the ED 04/23/2017 for failure to thrive (increased weakness, losing weight, refusal to eat). Pt was found to be septic w/ worsening respiratory status and was admitted to ICU. CT of chest and abdomen shows large loculated left-sided pleural effusion and left lung consolidation and collapse presumably the source of sepsis. Pt underwent thoracentesis today with 1 liter of purulent drainage removed. Surgery team consulted for chest tube placement for empyema. Pt currently intubated on mechanical ventilation (Oxygen concentration 40. PEEP 5. RR 18. Tital Volume 350) . HPI and PMH obtained from prior medical records. PMH: HTN, Hypothyroidism, dementia, BPH with urinary obstruction, HLD Social History: significant for alcohol use: 6-12 beers/day. lives with his because he unable to care for himself due to worsening dementia. Surgical History: Left eye cataract surgery Review of Systems - Review of Systems Systems not reviewed;Unavailable: Intubated Past Patient History - Infectious Disease Hx of Infectious Diseases: None - Past Social History Smoking Status: Former Smoker - CARDIAC Hx Cardiac Disorders: No Hx Angina: No Hx Cardia Arrhythmia: No Hx Circulatory Problems: No Hx Congestive Heart Failure: No Hx Heart Murmur: No Hx Heart Transplant: No Hx Hypercholesterolemia: No Hx Hypertension: Yes Hx Internal Defibrillator: No Hx Mitral Valve Prolapse: No Hx Pacemaker: No Hx Peripheral Edema: No Hx Peripheral Vascular Disease: No - PULMONARY Hx Respiratory Disorders: No Hx Asthma: No Hx Bronchitis: No Hx Chronic Obstructive Pulmonary Disease (COPD): No Hx Emphysema: No Hx Pneumonia: No Hx Respiratory Aspiration: No Hx Respiratory Tract Infection: No Hx Sleep Apnea: No Hx Tuberculosis: No - NEUROLOGICAL Hx Neurological Disorder: No Hx Alzheimer's Disease: No HX Cerebrovascular Accident: No Hx Dementia: Yes Hx Dizziness: No Hx Meningitis: Yes (Headaches) Hx Migraine: Yes Hx Parkinson's Disease: No Hx Seizures: No Hx Transient Ischemic Attacks (TIA): Yes - HEENT Hx HEENT Problems: Yes (sore throat; patient family states it has been a year) Hx Blind: No Hx Cataracts: Yes (left eye) Hx Deafness: No Hx Difficulty Chewing: No Hx Epistaxis: No Hx Glaucoma: No Hx Macular Degeneration: No - RENAL Hx Chronic Kidney Disease: No Hx Dialysis: No Hx Kidney Stones: No Hx Neurogenic Bladder: No Hx Pyelonephritis: No Hx Renal (Kidney) Cancer: No Hx Renal Failure: No - ENDOCRINE/METABOLIC Hx Endocrine Disorders: No Hx Adrenal Cancer: No Hx Diabetes Insipidus: No Hx Diabetes Mellitus Type 1: No Hx Diabetes Mellitus Type 2: No Hx Hyperthyroidism: No Hx Hypothyroidism: Yes Hx Systemic Lupus Erythematosus: No - HEMATOLOGICAL/ONCOLOGICAL Hx Blood Disorders: No Hx AIDS: No Hx Cancer: No Hx Chemotherapy: No Hx Hemophilia: No Hx Hepatitis A: No Hx Hepatitis B: No Hx Hepatitis C: No Hx Human Immunodeficiency Virus (HIV): No Hx Metastesis: No Hx Shingles: No Hx Sickle Cell Disease: No Hx Unexplained Bleeding: No - INTEGUMENTARY Hx Dermatological Problems: No Hx Basil Cell: No Hx Eczema: Yes (family states around the ears) Hx Melanoma: No Hx Psoriasis: No Hx Squamous Cell: No - MUSCULOSKELETAL/RHEUMATOLOGICAL Hx Musculoskeletal Disorders: No Hx Arthritis: No Hx Back Pain: No Hx Degenerative Joint Disease: No Hx Falls: Yes Hx Fractures: No Hx Gout: No Hx Herniated Disk: No Hx Myasthenia Gravis: No Hx Osteoarthritis: No Hx Osteomyelitis: No Hx Osteoporosis: No Hx Rhabdomyolysis: No Hx Spinal Stenosis: No Hx Unsteady Gait: Yes - GASTROINTESTINAL Hx Gastrointestinal Disorders: No Hx Colostomy: No Hx Crohn's Disease: No Hx Diverticulitis: No Hx Gall Bladder Disease: No Hx Gastroesophageal Reflux: Yes Hx Ileostomy: No Hx Liver Failure: No Hx Pancreatitis: No HX Swallowing Problems: Yes Hx Ulcer: No - GENITOURINARY/GYNECOLOGICAL Hx Genitourinary Disorders: No Hx Hematuria: No Hx Incontinence: No Hx Prostate Problems: No Hx Sexually Transmitted Disorders: No Hx Urinary Tract Infection: No - PSYCHIATRIC Hx Psychophysiologic Disorder: No Hx Anxiety: No Hx Bipolar Disorder: No Hx Depression: No Hx Hallucinations: No Hx Panic Symptoms: No Hx Psychosis: No Hx Schizophrenia: No Hx Sexual Abuse: No - SURGICAL HISTORY Hx Surgeries: No Hx Cardiac Catheterization: No Hx Coronary Stent: No Meds Allergies/Adverse Reactions: Allergies Allergy/AdvReac Type Severity Reaction Status Date / Time No Known Allergies Allergy Verified 04/23/17 11:21 - Medications Medications: Current Medications Acetaminophen (Tylenol 325mg Tab) 650 mg PO Q6H PRN PRN Reason: Fever >100.4 F Albuterol/Ipratropium (Duoneb 3 Mg/0.5 Mg (3 Ml) Ud) 3 ml IH [id number] [facility] Last Admin: 04/25/17 13:45 Dose: 3 ml Albuterol/Ipratropium (Duoneb 3 Mg/0.5 Mg (3 Ml) Ud) 3 ml IH Q2H PRN PRN Reason: Shortness of Breath Last Admin: 04/24/17 23:34 Dose: 3 ml Albuterol/Ipratropium (Duoneb 3 Mg/0.5 Mg (3 Ml) Ud) 3 ml IH Q2H PRN PRN Reason: Shortness of Breath Last Admin: 04/25/17 00:30 Dose: 3 ml Guaifenesin/Dextromethorphan (Robitussin Dm) 5 ml PO Q6H PRN PRN Reason: Cough Hydrocortisone Sodium Succinate (Solu-Cortef) 50 mg IVP Q6H [facility] Last Admin: 04/25/17 18:49 Dose: 50 mg Azithromycin (Zithromax 500mg In Ns) 500 mg in 250 mls @ 167 mls/hr IVPB DAILY [facility] PRN Reason: Protocol Last Admin: 04/25/17 12:45 Dose: Not Given Meropenem 1 gm/ Dextrose 100 mls @ 100 mls/hr IVPB Q12H [facility] PRN Reason: Protocol Stop: 05/03/17 06:31 Last Admin: 04/25/17 18:47 Dose: 100 mls/hr NOREPINEPHRINE BIT/0.9 % NACL (Levophed 4 Mg/ 250 Ml Ns Premixed) 4 mg in 250 mls @ 15 mls/hr IV .[id number] PRN; Protocol; 4 MCG/MIN PRN Reason: TITRATE PER MD ORDER Last Admin: 04/25/17 12:43 Dose: 8 mcg/min, 30 mls/hr Fentanyl Citrate (Fentanyl Citrate/Sodium Chloride 1 Mg/100 Ml) 1,000 mcg in 100 mls @ 2 mls/hr IV .Q24H PRN; Protocol; 20 MCG/HR PRN Reason: TITRATE PER MD ORDER Last Admin: 04/25/17 16:42 Dose: 200 mcg/hr, 20 mls/hr Vasopressin 20 units/ Dextrose 101 mls @ 9.09 mls/hr IV .[id number] [facility]; 0.03 U/MIN PRN Reason: Protocol Last Admin: 04/25/17 13:48 Dose: 9.09 mls/hr Vancomycin HCl (Vancomycin 1gm) 1 gm in 250 mls @ 167 mls/hr IVPB Q12H [facility] PRN Reason: Protocol Last Admin: 04/25/17 18:48 Dose: 167 mls/hr Midazolam HCl (Versed Inj) 1 mg IVP Q2 PRN PRN Reason: Agitation Last Admin: 04/25/17 12:49 Dose: 1 mg Ondansetron HCl (Zofran Inj) 4 mg IVP Q6H PRN PRN Reason: Nausea/Vomiting Pantoprazole Sodium (Protonix Inj) 40 mg IVP DAILY [facility] Last Admin: 04/25/17 12:44 Dose: Not Given Physical Exam - Constitutional Appears: No Acute Distress, Chronically Ill Additional comments: pt intubated - Head Exam Head Exam: ATRAUMATIC, NORMOCEPHALIC - Eye Exam Eye Exam: absent: Scleral icterus - ENT Exam ENT Exam: Mucous Membranes Dry Additional comments: ET tube and OG tube in place - Respiratory Exam Respiratory Exam: Decreased Breath Sounds. absent: Respiratory Distress, Stridor Additional comments: . pt on mechanical ventilation; PRVC; O2 concentration 40; PEEP 5; RR 18; Tidal Volume 350 decreased breath sounds noted to left lung base - Cardiovascular Exam Cardiovascular Exam: REGULAR RHYTHM. absent: Tachycardia - GI/Abdominal Exam GI & Abdominal Exam: Soft. absent: Rebound, Rigid Additional comments: non-tender; non-distended - Exam Additional comments: hickey catheter in place - Neurological Exam Additional comments: sedated - Skin Skin Exam: Dry, Intact, Warm Results - Vital Signs Recent Vital Signs: Last Vital Signs Temp 97.0 F L 04/25/17 18:00 Pulse 73 04/25/17 19:00 Resp 49 H 04/25/17 11:00 BP 112/71 04/25/17 19:00 Pulse Ox 98 04/25/17 19:00 - Labs Result Diagrams: 04/25/17 05:30 04/25/17 05:30 Labs: Laboratory Results - last 24 hr 04/24/17 04/25/17 04/25/17 08:30 00:18 00:20 WBC RBC Hgb Hct MCV MCH MCHC RDW Plt Count MPV Gran % Lymph % (Auto) [place] % (Auto) Eos % (Auto) Baso % (Auto) Gran # Lymph # [place] # Eos # Baso # pCO2 39 pO2 83.0 HCO3 23.1 ABG pH 7.38 ABG Total CO2 24.3 ABG O2 Saturation 97.5 ABG O2 Content 15.8 ABG Base Excess -1.8 ABG Hemoglobin 11.8 ABG Carboxyhemoglobin 1.7 H POC ABG HHb (Measured) 2.4 ABG Methemoglobin 1.0 ABG O2 Capacity 16.2 ABG Potassium Hgb O2 Saturation 94.8 L Glucose Lactate FiO2 32.0 Sodium 144 Potassium 3.7 Chloride 110 H Carbon Dioxide 25 Anion Gap 13 BUN 33 H Creatinine 1.0 Est GFR ( Amer) > 60 Est GFR (Non-Af Amer) > 60 Random Glucose 131 H Lactic Acid Calcium 8.7 Total Bilirubin 2.9 H AST 52 ALT 42 Alkaline Phosphatase 152 H D Troponin I 0.02 Total Protein 5.6 L Albumin 2.3 L Globulin 3.3 Albumin/Globulin Ratio 0.7 L Arterial Blood Potassium Pleural pH HIV 1&2 Ag/Ab, 4th Gen Nonreactive 04/25/17 04/25/17 04/25/17 00:20 00:20 05:30 WBC 16.4 H 16.3 H RBC 3.89 3.66 Hgb 12.6 L 11.6 L Hct 36.3 L 34.7 L MCV 93.3 94.8 MCH 32.4 31.7 MCHC 34.7 33.4 RDW 14.4 14.4 Plt Count 195 190 MPV 9.5 9.8 Gran % 67.0 68.3 H Lymph % (Auto) 13.7 L 13.0 L [place] % (Auto) 18.7 H 17.7 H Eos % (Auto) 0.4 L 0.6 L Baso % (Auto) 0.2 0.4 Gran # 10.99 H 11.12 H Lymph # 2.2 2.1 [place] # 3.1 H 2.9 H Eos # 0.1 0.1 Baso # 0.04 0.06 pCO2 pO2 HCO3 ABG pH ABG Total CO2 ABG O2 Saturation ABG O2 Content ABG Base Excess ABG Hemoglobin ABG Carboxyhemoglobin POC ABG HHb (Measured) ABG Methemoglobin ABG O2 Capacity ABG Potassium Hgb O2 Saturation Glucose Lactate FiO2 Sodium Potassium Chloride Carbon Dioxide Anion Gap BUN Creatinine Est GFR ( Amer) Est GFR (Non-Af Amer) Random Glucose Lactic Acid 2.1 Calcium Total Bilirubin AST ALT Alkaline Phosphatase Troponin I Total Protein Albumin Globulin Albumin/Globulin Ratio Arterial Blood Potassium Pleural pH HIV 1&2 Ag/Ab, 4th Gen 04/25/17 04/25/17 04/25/17 05:30 05:45 13:10 WBC RBC Hgb Hct MCV MCH MCHC RDW Plt Count MPV Gran % Lymph % (Auto) [place] % (Auto) Eos % (Auto) Baso % (Auto) Gran # Lymph # [place] # Eos # Baso # pCO2 39 39 pO2 212.0 H 108.0 H HCO3 23.6 22.5 ABG pH 7.39 7.37 ABG Total CO2 24.8 23.7 ABG O2 Saturation 99.4 H 99.1 H ABG O2 Content 16.5 ABG Base Excess -1.2 -2.5 L ABG Hemoglobin 12.0 ABG Carboxyhemoglobin 1.6 H POC ABG HHb (Measured) 0.9 ABG Methemoglobin 0.8 ABG O2 Capacity 16.6 ABG Potassium 2.9 L Hgb O2 Saturation 96.7 Glucose 128 H Lactate 1.6 FiO2 60.0 40.0 Sodium 147 145.0 Potassium 3.8 Chloride 112 H 117.0 H Carbon Dioxide 27 Anion Gap 12 BUN 35 H Creatinine 1.1 Est GFR ( Amer) > 60 Est GFR (Non-Af Amer) > 60 Random Glucose 131 H Lactic Acid Calcium 8.6 Total Bilirubin 3.1 H AST 58 ALT 49 Alkaline Phosphatase 155 H Troponin I Total Protein 5.2 L Albumin 2.2 L Globulin 3.1 Albumin/Globulin Ratio 0.7 L Arterial Blood Potassium 2.9 L Pleural pH HIV 1&2 Ag/Ab, 4th Gen 04/25/17 18:17 WBC RBC Hgb Hct MCV MCH MCHC RDW Plt Count MPV Gran % Lymph % (Auto) [place] % (Auto) Eos % (Auto) Baso % (Auto) Gran # Lymph # [place] # Eos # Baso # pCO2 pO2 HCO3 ABG pH ABG Total CO2 ABG O2 Saturation ABG O2 Content ABG Base Excess ABG Hemoglobin ABG Carboxyhemoglobin POC ABG HHb (Measured) ABG Methemoglobin ABG O2 Capacity ABG Potassium Hgb O2 Saturation Glucose Lactate FiO2 Sodium Potassium Chloride Carbon Dioxide Anion Gap BUN Creatinine Est GFR ( Amer) Est GFR (Non-Af Amer) Random Glucose Lactic Acid Calcium Total Bilirubin AST ALT Alkaline Phosphatase Troponin I Total Protein Albumin Globulin Albumin/Globulin Ratio Arterial Blood Potassium Pleural pH 6.5 HIV 1&2 Ag/Ab, 4th Gen - Imaging and Cardiology CT scan - chest Status: Image reviewed by me, Report reviewed by me Additional comment: CT w/ large left sided loculated pleural effusion Assessment & Plan - Assessment and Plan (Free Text) Assessment: 76 year old male with sepsis, likely from left-sided empyema. Plan: -Chest tube placed on left side. 700 mL of purulent drainage immediate return. -daily CXR -cont low wall suction for CT -f/u fluid culture -monitor chest tube output -further recs per DR. Gamino -Dr. Denson contacted regarding further thoracic surgical intervention. Will evaluate when he returns on Friday [facility] PGY3 Chest Tube Insertion - Chest Tube Placement Indication: Other (empyema ) Consent Obtained: Written (phone consent from son) Procedural Sedation: Other: (Fentanyl ) Procedure Description: Prepped W/Betadine (prepped with chlorahexadine ), Sterile Drape Applied, Local Anes Used: (Lidocaine 1% 7cc infiltration ) Incision Completed And Tube Inserted At: 14cm at chest wall in land michel indentified 5th intercostal space Post Insertion Procedure(s): Tube Sutured To Chest Wall, CXR Completed To Confirm Placement, Tube Connected To Suction, No Air Leak Noted
--- NOTE | 2017-04-25 21:23 | CON ---
HISTORY OF PRESENT ILLNESS: This is a 76-year-old gentleman with history of hypothyroidism, hypertension, intermittent abdominal pain, who presented to [facility] 2 days ago with failure to thrive. CXR revealed almost complete collapse of left lower lobe with a loculated pleural effusion. Thoracentesis was performed with removal of 30 mL of serosanguineous fluid which turns out to be lymphocyte predominant. Of note, the patient is heavy drinker and his mental status as well as weight was recently decreasing/deteriorating. No fever, no chills, no sweats, no nausea, no vomiting, no diarrhea, no constipation. Overnight, the patient's mental status and the respiratory status deteriorated, and he was admitted to ICU for further management and monitoring with low threshold for intubation. He was on BiPAP and his respiratory status was maintained to some degree. His mental status, however, deteriorated and decision was made to proceed with endotracheal intubation for airway protection. Despite fluid resuscitation, the patient became hypotensive and had to be started on norepinephrine up to 20 mcg per minute and vasopressin 0.03 units per minute. Stress-dose steroids were also added. Bedside thoracic ultrasound revealed hyperdynamic left ventricle, large pleural effusion on the left side, which appears to be complex, and IVC with diameter of less than 2 cm. Fluid resuscitation initiated and 3 L of normal saline were given as a bolus. PAST MEDICAL HISTORY: Hypertension and hypothyroidism. SOCIAL HISTORY: The patient is heavy drinker. No illicit drug abuse. FAMILY HISTORY: Noncontributory. ALLERGIES: NKDA. REVIEW OF SYSTEM: Review of 12-organ system other than mentioned in history of present illness is negative. PHYSICAL EXAMINATION: VITAL SIGNS: At present time, the patient is on norepinephrine 20 mcg per minute with blood pressure 93-99 systolic; vasopressin 0.03 units per minute and fentanyl 75 mcg per hour for sedation. The patient is intubated and he is on PRBC. ENT: Head and neck, atraumatic. LUNGS: Decreased breath sounds on left side. Normal breath sounds on the right side. HEART: Regular rate and rhythm. S1, S2 distant. ABDOMEN: Soft, nontender, nondistended. MUSCULOSKELETAL: No C/C/E. NEUROLOGICAL: The patient is sedated, it was noted to move all his extremities spontaneously. SKIN: Moist. PSYCH: The patient was barely following commands before intubation. LABORATORY DATA: WBC 16.3, hemoglobin 11.6, platelet count 119. Sodium 147, potassium 3.8, chloride 112, carbon dioxide 27, BUN 35, creatinine 1.1, glucose 131, AST 58, ALT 49, alkaline phosphatase 155, total bilirubin 3.1. Of note, CAT scan of the abdomen, chest and pelvis was performed 3 days ago and revealed unremarkable liver without gross lesions or ductal dilatation. Gallbladder and bile ducts were also unremarkable. CURRENT MEDICATIONS: Tylenol p.r.n., DuoNeb every 6 hours, fentanyl drip, hydrocortisone 50 mg IV q.6, meropenem, Versed p.r.n., norepinephrine, Zofran p.r.n., Protonix, vasopressin, azithromycin, vancomycin. ASSESSMENT AND PLAN: This is a 76-year-old gentleman with large loculated left-sided pleural effusion who is now in distributive shock and requiring vasopressor support with norepinephrine up to 20 mcg per minute, vasopressin 0.03 units per minute and stress-dose steroids. Antibiotics were upgraded to vancomycin, meropenem and azithromycin continued. ID service is following him as well. The patient is in the process of getting fluid resuscitated. His lactic acid went down from 7.3 to 1.6. The patient is sedated with fentanyl and benzodiazepines p.r.n., appears to be synchronous with the ventilator. Pulmonary koroma: the patient is on PRVC and we will continue with protective lung ventilation strategy. Oral hygiene, DVT, GI prophylaxis. Head of bed elevated more than 35 degrees. The patient is in shock, however, once shock resolved, conservative fluid and oxygen management will be considered. The patient has large loculated pleural effusion on the left side. He is status post thoracentesis, however, a large complex pleural effusion observed on the bedside ultrasound again, and we will do another thoracentesis. If complicated pleural effusion or empyema will be identified, chest tube will be placed. Thoracic surgery in relation to potential pleural biopsy/VATs was requested. Once the patient is a little bit more hemodynamically stable, bronchoscopy will be considered. GI: The patient is n.p.o. at present time. ID koroma: The patient has leukocytosis most likely due to community acquired pneumonia. Complex parapneumonic effusion cannot be ruled out; however, I would expect more neutrophil-predominant pleural effusion rather than lymphocyte predominant in this condition. The patient is on broad-spectrum antibiotics; septic workup is in progress. Procalcitonin is elevated. Endocrine: will continue target blood glucose within 140-180 range according to night sugar trial. We will continue with DVT and GI prophylaxis. Renal: Maintain MAP>65, avoid nephrotoxic meds but not in expense of treating underlying disease. Fluid resuscitation DVT/GI prophylaxis Addendum: Thoracenrthesis performed--empyema. CT placed by surgical team ccm time 40 min Emerson Araujo MD [email or web address]
--- NOTE | 2017-04-25 22:19 | CARD ---
APPROVED REPORT EKG Measurement Heart [id number] <Conclusion> Sinus tachycardia Nonspecific T wave abnormality Abnormal ECG
[2017-04-25] MEDS: EPINEPHrine- 1 MG in Sodium Chloride 0.9% 50 ML IV PRN (23:48)
[2017-04-26] MEDS: Albuterol-Ipratrop 3 mg / 0.5 (3 ml) UD IH SCH ×4 (02:40→20:06)
--- NOTE | 2017-04-26 03:35 | CON ---
HISTORY OF PRESENT ILLNESS: The patient is a 76-year-old admitted to the ICU. On 04/23, the patient had a chest x-ray that was abnormal with a shift to the right, evidence of atelectasis, but also what looks like a hematoma that is probably infected. Dr. Warren was unable to get effective drainage. I was consulted for empyema, Dr. Araujo aspirated a fair amount of purulent looking material. The patient is now intubated for the blood pressure above 90. He is a 76-year-old brought to the emergency room, losing weight, not eating well, weak, tired, refusing to eat. History of hypothyroidism, hypertension and abdominal pain intermittently. He used to drink 6 to 12 beers a day. He has increasing dementia. REVIEW OF SYSTEMS: Otherwise unremarkable. PHYSICAL EXAMINATION: GENERAL: He is intubated. VITAL SIGNS: Blood pressure is about 95, pulse of about 100. He is cachectic. CHEST: Decreased breath sounds on the left side. HEART: Otherwise unremarkable. LABORATORY DATA: His white count is 16.3. He has a PT of 20.9 with an INR of 1.88. He has a bilirubin is 3.1, BUN of 35, creatinine of 1.1. 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 PLAN: We will plan to place a chest tube expeditiously, I am aware of the pro-time that is elevated, but I believe, this is urgent. Chong Gamino MD
[2017-04-26] MEDS: Fentanyl 1000mcg/100ml NS 1,000 MCG/100 ML BAG IV PRN ×4 (04:29→19:17)
[2017-04-26] MEDS: EPINEPHrine- 1 MG in Sodium Chloride 0.9% 50 ML IV PRN (04:31)
[2017-04-26] MEDS: Vancomycin 1gm in NS 250ml 1 GM/250 ML BAG IVPB SCH ×2 (05:02→16:08)
[2017-04-26 05:50] LABS: BASO # 0.04 K/mm3 (0.0-2.0); BASO % 0.2 % (0.0-3.0); GRAN # 15.4 (1.4-6.5); GRAN % 82.8 % (50.0-68.0); HEMATOCRIT 37.5 % (42.0-52.0); LYMPH # 1.6 (1.2-3.4); LYMPH % 8.7 % (22.0-35.0); MEAN CELL VOLUME 95.7 fl (80.0-105.0); MEAN CORPUSCULAR HEMOGLOBIN 31.6 pg (25.0-35.0); MEAN CORPUSCULAR HGB CONC 33.1 g/dl (31.0-37.0); MEAN PLATELET VOLUME 9.7 fl (7.0-11.0); MONO # 1.6 (0.1-0.6); MONO % 8.3 % (1.0-6.0); RED CELL DISTRIBUTION WIDTH 14.8 % (11.5-14.5); WHITE BLOOD COUNT 18.6 10^3/ul (4.5-11.0)
[2017-04-26 06:03] LABS: ALB/GLOB RATIO 0.7 (1.1-1.8); ALKALINE PHOSPHATASE 138 U/L (38-126); ALT/SGPT 43 U/L (7-56); AST/SGOT 42 U/L (17-59); BILIRUBIN,TOTAL 2.8 mg/dL (0.2-1.3); BLOOD UREA NITROGEN 38 mg/dL (7-21); CARBON DIOXIDE 22 mmol/L (21-33); CHLORIDE 117 mmol/L (98-107); GFR AFRICAN-AMERICAN > 60; GLUCOSE,RANDOM 204 mg/dL (70-110); SODIUM 149 mmol/L (132-148); TOTAL PROTEIN 5.3 g/dL (5.8-8.3)
[2017-04-26] MEDS: Meropenem 1 GM in Dextrose 5% In Water 100 ML IVPB SCH ×2 (06:13→17:30)
--- NOTE | 2017-04-26 07:34 | CP.PCM.PN ---
Subjective - Date & Time of Evaluation Date of Evaluation: 04/26/17 Time of Evaluation: 07:31 - Subjective Subjective: Surgery: Dr. Gamino Patient remains intubated and sedated. Overnight remained hypotensive, requiring addition of Vaso and Epi for pressure support. Patient now stable on 3 pressors. Chest tube remained on suction overnight with an addition 300cc fluid output. Output now mix of purulent and serous. No other acute events noted Objective - Vital Signs/Intake and Output Vital Signs (last 24 hours): Temp Pulse Resp BP Pulse Ox 98.0 F 83 49 H 95/56 L 99 04/26/17 04:00 04/26/17 06:25 04/25/17 11:00 04/26/17 06:25 04/26/17 06:25 Intake and Output: 04/26/17 04/26/17 06:59 18:59 Intake Total 1621 Output Total 1300 Balance 321 - Medications Medications: Current Medications Acetaminophen (Tylenol 325mg Tab) 650 mg PO Q6H PRN PRN Reason: Fever >100.4 F Albuterol/Ipratropium (Duoneb 3 Mg/0.5 Mg (3 Ml) Ud) 3 ml IH [id number] CEM Last Admin: 04/26/17 02:40 Dose: 3 ml Albuterol/Ipratropium (Duoneb 3 Mg/0.5 Mg (3 Ml) Ud) 3 ml IH Q2H PRN PRN Reason: Shortness of Breath Last Admin: 04/24/17 23:34 Dose: 3 ml Albuterol/Ipratropium (Duoneb 3 Mg/0.5 Mg (3 Ml) Ud) 3 ml IH Q2H PRN PRN Reason: Shortness of Breath Last Admin: 04/25/17 00:30 Dose: 3 ml Guaifenesin/Dextromethorphan (Robitussin Dm) 5 ml PO Q6H PRN PRN Reason: Cough Hydrocortisone Sodium Succinate (Solu-Cortef) 50 mg IVP Q6H CEM Last Admin: 04/26/17 06:19 Dose: 50 mg Azithromycin (Zithromax 500mg In Ns) 500 mg in 250 mls @ 167 mls/hr IVPB DAILY CEM PRN Reason: Protocol Last Admin: 04/25/17 12:45 Dose: Not Given Meropenem 1 gm/ Dextrose 100 mls @ 100 mls/hr IVPB Q12H CEM PRN Reason: Protocol Stop: 05/03/17 06:31 Last Admin: 04/26/17 06:13 Dose: 100 mls/hr Fentanyl Citrate (Fentanyl Citrate/Sodium Chloride 1 Mg/100 Ml) 1,000 mcg in 100 mls @ 2 mls/hr IV .Q24H PRN; Protocol; 20 MCG/HR PRN Reason: TITRATE PER MD ORDER Last Admin: 04/26/17 04:29 Dose: 200 mcg/hr, 20 mls/hr Vasopressin 20 units/ Dextrose 101 mls @ 9.09 mls/hr IV .Q11H7M CEM; 0.03 U/MIN PRN Reason: Protocol Last Admin: 04/25/17 23:36 Dose: 9.09 mls/hr Vancomycin HCl (Vancomycin 1gm) 1 gm in 250 mls @ 167 mls/hr IVPB Q12H CEM PRN Reason: Protocol Last Admin: 04/26/17 05:02 Dose: 167 mls/hr Norepinephrine Bitartrate 8 mg (/ Sodium Chloride) 258 mls @ 7.74 mls/hr IV .Q24H PRN; Protocol; 4 MCG/MIN PRN Reason: TITRATE PER PROTOCOL Last Admin: 04/26/17 06:22 Dose: 20 mcg/min, 38.7 mls/hr Epinephrine HCl 1 mg/ Sodium (Chloride) 51 mls @ 3.06 mls/hr IV .[id number] PRN; Protocol; 1 MCG/MIN PRN Reason: TITRATE PER MD ORDER Last Admin: 04/26/17 04:31 Dose: 2 mcg/min, 6.12 mls/hr Midazolam HCl (Versed Inj) 1 mg IVP Q2 PRN PRN Reason: Agitation Last Admin: 04/25/17 12:49 Dose: 1 mg Ondansetron HCl (Zofran Inj) 4 mg IVP Q6H PRN PRN Reason: Nausea/Vomiting Pantoprazole Sodium (Protonix Inj) 40 mg IVP DAILY [facility] Last Admin: 04/25/17 12:44 Dose: Not Given - Labs Labs: 04/26/17 05:30 04/26/17 05:30 PT 20.9 SECONDS (9.4-12.5) H 04/24/17 11:16 INR 1.88 (0.93-1.08) H 04/24/17 11:16 APTT 38.2 Seconds (25.1-36.5) H 04/26/17 05:30 - Constitutional Appears: Chronically Ill - Head Exam Head Exam: NORMOCEPHALIC - Eye Exam Eye Exam: absent: Scleral icterus - ENT Exam ENT Exam: Mucous Membranes Dry Additional comments: ET tube and OG tube in place - Respiratory Exam Respiratory Exam: absent: Respiratory Distress Additional comments: on mechanical vent PRVC mode Left chest tube in place w/ 300cc/12hr fluid output. Fluid now more serous w/ some purulence. Dressing CDI. No evidence of leak. - Cardiovascular Exam Cardiovascular Exam: REGULAR RHYTHM. absent: Tachycardia - GI/Abdominal Exam GI & Abdominal Exam: Soft. absent: Distended, Tenderness - Neurological Exam Additional comments: sedated - Skin Skin Exam: Dry, Warm Assessment and Plan - Assessment and Plan (Free Text) Assessment: 76 y/o male w/ empyema s/p Left chest tube placement PPD1 Plan: -continue to monitor chest tube output -f/u chest CT -keep chest tube on low wall suction -cont abx -daily CXR -f/u fluid C&S, studies -will f/u with CT surgeon on Friday regarding further surgical plan -further general surgery recs per Dr. Stevenson Aponte PGY3
[2017-04-26] MEDS: Azithromycin 500MG/NS 250ml 500 MG/250 ML BAG IVPB SCH (09:37)
--- NOTE | 2017-04-26 10:22 | CP.CCUPN ---
<Tawanda Arora - Last Filed: 04/26/17 10:19> CCU Subjective - Physician Review Subjective (Free Text): Patient seen and examined at bedside. Resting comfortably in bed. Intubated and sedated. Grimaces to painful stimuli. ROS cannot be attained due to altered mental status. 04/26/17 10:19 CCU Objective - Vital Signs / Intake & Output Vital Signs (Last 4 hours): Vital Signs Temp Pulse Resp BP Pulse Ox 04/26/17 08:58 97.5 F L 04/26/17 08:50 79 110/69 99 04/26/17 08:45 80 114/69 99 04/26/17 08:40 81 119/47 L 100 04/26/17 08:35 83 110/65 99 04/26/17 08:30 80 113/68 99 04/26/17 08:25 80 121/66 100 04/26/17 08:24 18 100 04/26/17 08:20 81 112/45 L 100 04/26/17 08:15 80 114/71 100 04/26/17 08:10 77 115/69 98 04/26/17 08:05 84 126/71 99 04/26/17 08:00 80 121/72 99 04/26/17 07:55 80 121/77 98 04/26/17 07:50 80 119/67 100 04/26/17 07:45 81 110/70 100 04/26/17 07:40 83 122/73 96 04/26/17 07:35 80 109/62 98 04/26/17 07:30 82 108/66 99 04/26/17 07:25 83 112/68 99 04/26/17 07:20 81 112/66 98 04/26/17 07:15 81 113/64 98 04/26/17 07:10 82 113/70 98 04/26/17 07:05 82 117/67 99 04/26/17 07:00 81 111/67 99 04/26/17 06:55 81 113/71 99 04/26/17 06:50 82 114/70 99 04/26/17 06:25 83 95/56 L 99 04/26/17 06:20 83 111/60 98 Intake and Output (Last 8hrs): Intake & Output 04/25/17 04/26/17 04/26/17 22:59 06:59 14:59 Intake Total 4000 1521 20 Output Total 300 1300 Balance 3700 221 20 Intake: IV 4000 1521 20 Right Internal Jugular 3800 1112 Output: Chest Tube Drainage 950 Left Mid-Axillary Chest 950 Urine 300 350 Urine, Voided 300 350 - Physical Exam Head: Positive for: Atraumatic, Normocephalic, Other (temporal wasting ) Extroacular Muscles: Positive for: Other (senile archus present b/l cataracts ) Conjunctiva: Positive for: Normal Mouth: Positive for: Moist Mucous Membranes Pharnyx: Positive for: Normal. Negative for: ERYTHEMA, EXUDATE Neck: Negative for: Meningeal Signs Respiratory/Chest: Positive for: Clear to Auscultation, Good Air Exchange. Negative for: Respiratory Distress Cardiovascular: Positive for: Normal S1, S2. Negative for: Murmurs Abdomen: Positive for: Normal Bowel Sounds. Negative for: Tenderness, Distention Upper Extremity: Positive for: Normal Inspection. Negative for: Cyanosis, Edema Lower Extremity: Positive for: Normal Inspection. Negative for: Edema, CALF TENDERNESS Neurological: Positive for: Other (intubated and sedated) Skin: Positive for: Other (cellulitis of the buttocks ) Psychiatric: Positive for: Other (intubated and sedated) - Medications Active Medications: Active Medications Generic Name Dose Route Start Last Admin Trade Name Freq PRN Reason Stop Dose Admin Acetaminophen 650 mg 04/23/17 16:13 Tylenol 325mg Tab PO Q6H PRN Fever >100.4 F Albuterol/Ipratropium 3 ml 04/23/17 20:00 04/26/17 07:32 Duoneb 3 Mg/0.5 Mg (3 Ml) Ud IH 3 ml [id number] CEM Administration Albuterol/Ipratropium 3 ml 04/23/17 16:13 04/24/17 23:34 Duoneb 3 Mg/0.5 Mg (3 Ml) Ud IH 3 ml Q2H PRN Administration Shortness of Breath Albuterol/Ipratropium 3 ml 04/25/17 00:07 04/25/17 00:30 Duoneb 3 Mg/0.5 Mg (3 Ml) Ud IH 3 ml Q2H PRN Administration Shortness of Breath Guaifenesin/Dextromethorphan 5 ml 04/24/17 19:29 Robitussin Dm PO Q6H PRN Cough Hydrocortisone Sodium Succinate 50 mg 04/25/17 13:00 04/26/17 06:19 Solu-Cortef IVP 50 mg Q6H CEM Administration Azithromycin 500 mg in 250 mls @ 167 mls/hr 04/24/17 10:00 04/26/17 09:37 Zithromax 500mg In Ns IVPB 167 mls/hr DAILY CEM Administration Protocol Meropenem 1 gm/ Dextrose 100 mls @ 100 mls/hr 04/24/17 06:30 04/26/17 06:13 IVPB 05/03/17 06:31 100 mls/hr Q12H CEM Administration Protocol Fentanyl Citrate 1,000 mcg in 100 mls @ 2 mls/hr 04/25/17 12:01 04/26/17 09: 38 Fentanyl Citrate/Sodium Chloride 1 Mg/100 Ml IV 200 mcg/hr .Q24H PRN 20 mls/hr TITRATE PER MD ORDER Administration Protocol 20 MCG/HR Vasopressin 20 units/ Dextrose 101 mls @ 9.09 mls/hr 04/25/17 13:00 04/25/17 23:36 IV 9.09 mls/hr .Q11H7M CEM Administration Protocol 0.03 U/MIN Vancomycin HCl 1 gm in 250 mls @ 167 mls/hr 04/25/17 16:30 04/26/17 05:02 Vancomycin 1gm IVPB 167 mls/hr Q12H CEM Administration Protocol Norepinephrine Bitartrate 8 mg 258 mls @ 7.74 mls/hr 04/25/17 22:48 04/26/17 06:22 / Sodium Chloride IV 20 mcg/min .Q24H PRN 38.7 mls/hr TITRATE PER PROTOCOL Administration Protocol 4 MCG/MIN Epinephrine HCl 1 mg/ Sodium 51 mls @ 3.06 mls/hr 04/25/17 23:27 04/26/17 04: 31 Chloride IV 2 mcg/min .[id number] PRN 6.12 mls/hr TITRATE PER MD ORDER Administration Protocol 1 MCG/MIN Midazolam HCl 1 mg 04/25/17 12:08 04/25/17 12:49 Versed Inj IVP 1 mg Q2 PRN Administration Agitation Ondansetron HCl 4 mg 04/23/17 16:13 Zofran Inj IVP Q6H PRN Nausea/Vomiting Pantoprazole Sodium 40 mg 04/23/17 16:15 04/26/17 09:38 Protonix Inj IVP 40 mg DAILY CEM Administration - Patient Studies Lab Studies: Microbiology Studies 04/25/17 12:40 Gram Stain - Final Sputum 04/24/17 17:20 Mycobacterial Culture - Preliminary Other: Please Indicate 04/24/17 17:20 Gram Stain - Final Pleural Fluid Body Fluid Culture - Preliminary NO GROWTH AFTER 24 HOURS 04/24/17 17:20 Fungal Culture - Preliminary Pleural Fluid Lab Studies 04/26/17 04/26/17 04/26/17 Range/Units 05:30 05:30 05:30 WBC 18.6 H (4.5-11.0) 10^3/ul RBC 3.92 (3.5-6.1) 10^6/uL Hgb 12.4 L (14.0-18.0) g/dL Hct 37.5 L (42.0-52.0) % MCV 95.7 (80.0-105.0) fl MCH 31.6 (25.0-35.0) pg MCHC 33.1 (31.0-37.0) g/dl RDW 14.8 H (11.5-14.5) % Plt Count 210 (120.0-450.0) 10^3/uL MPV 9.7 (7.0-11.0) fl Gran % 82.8 H (50.0-68.0) % Lymph % (Auto) 8.7 L (22.0-35.0) % [place] % (Auto) 8.3 H (1.0-6.0) % Eos % (Auto) 0.0 L (1.5-5.0) % Baso % (Auto) 0.2 (0.0-3.0) % Gran # 15.40 H (1.4-6.5) Lymph # 1.6 (1.2-3.4) [place] # 1.6 H (0.1-0.6) Eos # 0.0 (0.0-0.7) Baso # 0.04 (0.0-2.0) K/mm3 APTT 38.2 H (25.1-36.5) Seconds pCO2 (35-45) mm/Hg pO2 (80-100) mm/Hg HCO3 (21-28) mmol/L ABG pH (7.35-7.45) ABG Total CO2 (22-28) mmol.L ABG O2 Saturation (95-98) % ABG O2 Content (15-23) ML/dl ABG Base Excess (-2.0-3.0) mmol/L ABG Hemoglobin (11.7-17.4) g/dL ABG Carboxyhemoglobin (0.5-1.5) % POC ABG HHb (Measured) (0-5) % ABG Methemoglobin (0.0-3.0) % ABG O2 Capacity (16-24) mL/dl Hgb O2 Saturation (95.0-98.0) % FiO2 % Sodium 149 H (132-148) mmol/L Potassium 4.0 (3.6-5.0) mmol/L Chloride 117 H (98-107) mmol/L Carbon Dioxide 22 (21-33) mmol/L Anion Gap 14 (10-20) BUN 38 H (7-21) mg/dL Creatinine 0.8 (0.8-1.5) mg/dL Est GFR ( Amer) > 60 Est GFR (Non-Af Amer) > 60 Random Glucose 204 H (70-110) mg/dL Calcium 8.0 L (8.4-10.5) mg/dL Total Bilirubin 2.8 H (0.2-1.3) mg/dL AST 42 (17-59) U/L ALT 43 (7-56) U/L Alkaline Phosphatase 138 H (38-126) U/L Total Protein 5.3 L (5.8-8.3) g/dL Albumin 2.2 L (3.0-4.8) g/dL Globulin 3.2 gm/dL Albumin/Globulin Ratio 0.7 L (1.1-1.8) Pleural pH HIV 1&2 Ag/Ab, 4th Gen (Nonreactive) 04/25/17 04/25/17 04/24/17 Range/Units 18:17 13:10 08:30 WBC (4.5-11.0) 10^3/ul RBC (3.5-6.1) 10^6/uL Hgb (14.0-18.0) g/dL Hct (42.0-52.0) % MCV (80.0-105.0) fl MCH (25.0-35.0) pg MCHC (31.0-37.0) g/dl RDW (11.5-14.5) % Plt Count (120.0-450.0) 10^3/uL MPV (7.0-11.0) fl Gran % (50.0-68.0) % Lymph % (Auto) (22.0-35.0) % [place] % (Auto) (1.0-6.0) % Eos % (Auto) (1.5-5.0) % Baso % (Auto) (0.0-3.0) % Gran # (1.4-6.5) Lymph # (1.2-3.4) [place] # (0.1-0.6) Eos # (0.0-0.7) Baso # (0.0-2.0) K/mm3 APTT (25.1-36.5) Seconds pCO2 39 (35-45) mm/Hg pO2 108.0 H (80-100) mm/Hg HCO3 22.5 (21-28) mmol/L ABG pH 7.37 (7.35-7.45) ABG Total CO2 23.7 (22-28) mmol.L ABG O2 Saturation 99.1 H (95-98) % ABG O2 Content 16.5 (15-23) ML/dl ABG Base Excess -2.5 L (-2.0-3.0) mmol/L ABG Hemoglobin 12.0 (11.7-17.4) g/dL ABG Carboxyhemoglobin 1.6 H (0.5-1.5) % POC ABG HHb (Measured) 0.9 (0-5) % ABG Methemoglobin 0.8 (0.0-3.0) % ABG O2 Capacity 16.6 (16-24) mL/dl Hgb O2 Saturation 96.7 (95.0-98.0) % FiO2 40.0 % Sodium (132-148) mmol/L Potassium (3.6-5.0) mmol/L Chloride (98-107) mmol/L Carbon Dioxide (21-33) mmol/L Anion Gap (10-20) BUN (7-21) mg/dL Creatinine (0.8-1.5) mg/dL Est GFR ( Amer) Est GFR (Non-Af Amer) Random Glucose (70-110) mg/dL Calcium (8.4-10.5) mg/dL Total Bilirubin (0.2-1.3) mg/dL AST (17-59) U/L ALT (7-56) U/L Alkaline Phosphatase (38-126) U/L Total Protein (5.8-8.3) g/dL Albumin (3.0-4.8) g/dL Globulin gm/dL Albumin/Globulin Ratio (1.1-1.8) Pleural pH 6.5 HIV 1&2 Ag/Ab, 4th Gen Nonreactive (Nonreactive) Laboratory Results - last 24 hr 04/24/17 04/25/17 04/25/17 08:30 13:10 18:17 WBC RBC Hgb Hct MCV MCH MCHC RDW Plt Count MPV Gran % Lymph % (Auto) [place] % (Auto) Eos % (Auto) Baso % (Auto) Gran # Lymph # [place] # Eos # Baso # APTT pCO2 39 pO2 108.0 H HCO3 22.5 ABG pH 7.37 ABG Total CO2 23.7 ABG O2 Saturation 99.1 H ABG O2 Content 16.5 ABG Base Excess -2.5 L ABG Hemoglobin 12.0 ABG Carboxyhemoglobin 1.6 H POC ABG HHb (Measured) 0.9 ABG Methemoglobin 0.8 ABG O2 Capacity 16.6 Hgb O2 Saturation 96.7 FiO2 40.0 Sodium Potassium Chloride Carbon Dioxide Anion Gap BUN Creatinine Est GFR ( Amer) Est GFR (Non-Af Amer) Random Glucose Calcium Total Bilirubin AST ALT Alkaline Phosphatase Total Protein Albumin Globulin Albumin/Globulin Ratio Pleural pH 6.5 HIV 1&2 Ag/Ab, 4th Gen Nonreactive 04/26/17 04/26/17 04/26/17 05:30 05:30 05:30 WBC 18.6 H RBC 3.92 Hgb 12.4 L Hct 37.5 L MCV 95.7 MCH 31.6 MCHC 33.1 RDW 14.8 H Plt Count 210 MPV 9.7 Gran % 82.8 H Lymph % (Auto) 8.7 L [place] % (Auto) 8.3 H Eos % (Auto) 0.0 L Baso % (Auto) 0.2 Gran # 15.40 H Lymph # 1.6 [place] # 1.6 H Eos # 0.0 Baso # 0.04 APTT 38.2 H pCO2 pO2 HCO3 ABG pH ABG Total CO2 ABG O2 Saturation ABG O2 Content ABG Base Excess ABG Hemoglobin ABG Carboxyhemoglobin POC ABG HHb (Measured) ABG Methemoglobin ABG O2 Capacity Hgb O2 Saturation FiO2 Sodium 149 H Potassium 4.0 Chloride 117 H Carbon Dioxide 22 Anion Gap 14 BUN 38 H Creatinine 0.8 Est GFR ( Amer) > 60 Est GFR (Non-Af Amer) > 60 Random Glucose 204 H Calcium 8.0 L Total Bilirubin 2.8 H AST 42 ALT 43 Alkaline Phosphatase 138 H Total Protein 5.3 L Albumin 2.2 L Globulin 3.2 Albumin/Globulin Ratio 0.7 L Pleural pH HIV 1&2 Ag/Ab, 4th Gen Fingerstick Blood Sugar Results: 46 Review of Systems - Review of Systems Review of Systems: 12 point review of systems cannot be attained at this time due to altered mental status Critical Care Progress Note - Nutrition Nutrition: Nutrition Category Date Time Status Heart Healthy Diet [DIET] Diets 04/24/17 Breakfast Ordered Assessment/Plan - Assessment and Plan (Free Text) Assessment: 76 yo male with past medical history of dementia, hypothyriodism, HTN, alcohol abuse was consulted for dysnea. Patient continued to have increased work of breathing and was transfered to ICU for further monitoring. Patient had increased work of breathing and was intubated. Patient was found to have extensive opacification of the left [place]aly[place] thorax similar to prior study with evidence of loculated pleural effusions and mediastinal shift to the right. Thoracentesis was done and a chest tube was placed on left side with active drainage of pus/serosangious fluid. Patient was hypotensive. Central line was placed and pressors were started for BP support. Plan: Neurology - patient is intubated and sedated with fentanyl, will try sedation vacation today - history of dementia Cardiovascular - patient is a hypotensive due to septic shock- patient is on levophed and vasopressin, epi was titrated off with MAP still > 65, continue with solucortef - currently hemodynamically stable - continue to monitor - maintain map>65 - HR trended, reviewed, and appreciated, will continue to monitor closely - BPs trended, reviewed, and appreciated, will continue to monitor closely Pulmonary - patient is intubated and on ventilation, continue with PRVC, increased tidal volume to 400 - CT showed large left sided pleural effusion - c/w robutassian/ dextromethorphan - c/w duonebs - continue abx, azithromycin, meropenem, and vancomycin - serology from thoracentesis pending - aspiration precautions, HOB >35 - Empyema- chest tube in place- draining pus and serosanguinous fluids, vats likely needed- cardiothoracic surgery consulted- appreciate recommendations GI - continue protonix for prophalaxis - will start feeds through OGT as per primary Renal/ Electrolyes - strict I&O - continue to monitor - replace electrolytes as needed - hypernatremia- free water flushes are ordered - creatinine and BUN trended, reviewed, and appreciated, will continue to monitor closely ID - a febrile with leukocytosis - possible PNA - procalcitonin elevated - legionella pending - currently on meropenum and azithromycin - maintain euthermia - ID consulted Endo - history of hypothyriodism - not on any medications - maintain blood sugars between 140-180 Patient seen, case discussed with, and plan approved by attending physician, Dr. Santana. <Jonathan Santana - Last Filed: 04/26/17 11:38> CCU Objective - Vital Signs / Intake & Output Vital Signs (Last 4 hours): Vital Signs Temp Pulse Resp BP Pulse Ox 04/26/17 08:58 97.5 F L 04/26/17 08:50 79 110/69 99 04/26/17 08:45 80 114/69 99 04/26/17 08:40 81 119/47 L 100 04/26/17 08:35 83 110/65 99 04/26/17 08:30 80 113/68 99 04/26/17 08:25 80 121/66 100 04/26/17 08:24 18 100 04/26/17 08:20 81 112/45 L 100 04/26/17 08:15 80 114/71 100 04/26/17 08:10 77 115/69 98 04/26/17 08:05 84 126/71 99 04/26/17 08:00 80 121/72 99 04/26/17 07:55 80 121/77 98 04/26/17 07:50 80 119/67 100 04/26/17 07:45 81 110/70 100 04/26/17 07:40 83 122/73 96 04/26/17 07:35 80 109/62 98 Intake and Output (Last 8hrs): Intake & Output 04/25/17 04/26/17 04/26/17 22:59 06:59 14:59 Intake Total 4000 1521 53 Output Total 300 1300 Balance 3700 221 53 Intake: IV 4000 1521 53 Right Internal Jugular 3800 1112 Output: Chest Tube Drainage 950 Left Mid-Axillary Chest 950 Urine 300 350 Urine, Voided 300 350 - Medications Active Medications: Active Medications Generic Name Dose Route Start Last Admin Trade Name Freq PRN Reason Stop Dose Admin Acetaminophen 650 mg 04/23/17 16:13 Tylenol 325mg Tab PO Q6H PRN Fever >100.4 F Albuterol/Ipratropium 3 ml 04/23/17 20:00 04/26/17 07:32 Duoneb 3 Mg/0.5 Mg (3 Ml) Ud IH 3 ml [id number] CEM Administration Albuterol/Ipratropium 3 ml 04/23/17 16:13 04/24/17 23:34 Duoneb 3 Mg/0.5 Mg (3 Ml) Ud IH 3 ml Q2H PRN Administration Shortness of Breath Albuterol/Ipratropium 3 ml 04/25/17 00:07 04/25/17 00:30 Duoneb 3 Mg/0.5 Mg (3 Ml) Ud IH 3 ml Q2H PRN Administration Shortness of Breath Guaifenesin/Dextromethorphan 5 ml 04/24/17 19:29 Robitussin Dm PO Q6H PRN Cough Hydrocortisone Sodium Succinate 50 mg 04/25/17 13:00 04/26/17 06:19 Solu-Cortef IVP 50 mg Q6H CEM Administration Azithromycin 500 mg in 250 mls @ 167 mls/hr 04/24/17 10:00 04/26/17 09:37 Zithromax 500mg In Ns IVPB 167 mls/hr DAILY CEM Administration Protocol Meropenem 1 gm/ Dextrose 100 mls @ 100 mls/hr 04/24/17 06:30 04/26/17 06:13 IVPB 05/03/17 06:31 100 mls/hr Q12H CEM Administration Protocol Fentanyl Citrate 1,000 mcg in 100 mls @ 2 mls/hr 04/25/17 12:01 04/26/17 09: 38 Fentanyl Citrate/Sodium Chloride 1 Mg/100 Ml IV 200 mcg/hr .Q24H PRN 20 mls/hr TITRATE PER MD ORDER Administration Protocol 20 MCG/HR Vasopressin 20 units/ Dextrose 101 mls @ 9.09 mls/hr 04/25/17 13:00 04/25/17 23:36 IV 9.09 mls/hr .Q11H7M CEM Administration Protocol 0.03 U/MIN Vancomycin HCl 1 gm in 250 mls @ 167 mls/hr 04/25/17 16:30 04/26/17 05:02 Vancomycin 1gm IVPB 167 mls/hr Q12H CEM Administration Protocol Norepinephrine Bitartrate 8 mg 258 mls @ 7.74 mls/hr 04/25/17 22:48 04/26/17 06:22 / Sodium Chloride IV 20 mcg/min .Q24H PRN 38.7 mls/hr TITRATE PER PROTOCOL Administration Protocol 4 MCG/MIN Midazolam HCl 1 mg 04/25/17 12:08 04/25/17 12:49 Versed Inj IVP 1 mg Q2 PRN Administration Agitation Ondansetron HCl 4 mg 04/23/17 16:13 Zofran Inj IVP Q6H PRN Nausea/Vomiting Pantoprazole Sodium 40 mg 04/23/17 16:15 04/26/17 09:38 Protonix Inj IVP 40 mg DAILY CEM Administration - Patient Studies Lab Studies: Microbiology Studies 04/25/17 12:40 Gram Stain - Final Sputum 04/24/17 17:20 Mycobacterial Culture - Preliminary Other: Please Indicate 04/24/17 17:20 Gram Stain - Final Pleural Fluid Body Fluid Culture - Preliminary NO GROWTH AFTER 24 HOURS 04/24/17 17:20 Fungal Culture - Preliminary Pleural Fluid Lab Studies 04/26/17 04/26/17 04/26/17 Range/Units 05:30 05:30 05:30 WBC 18.6 H (4.5-11.0) 10^3/ul RBC 3.92 (3.5-6.1) 10^6/uL Hgb 12.4 L (14.0-18.0) g/dL Hct 37.5 L (42.0-52.0) % MCV 95.7 (80.0-105.0) fl MCH 31.6 (25.0-35.0) pg MCHC 33.1 (31.0-37.0) g/dl RDW 14.8 H (11.5-14.5) % Plt Count 210 (120.0-450.0) 10^3/uL MPV 9.7 (7.0-11.0) fl Gran % 82.8 H (50.0-68.0) % Lymph % (Auto) 8.7 L (22.0-35.0) % [place] % (Auto) 8.3 H (1.0-6.0) % Eos % (Auto) 0.0 L (1.5-5.0) % Baso % (Auto) 0.2 (0.0-3.0) % Gran # 15.40 H (1.4-6.5) Lymph # 1.6 (1.2-3.4) [place] # 1.6 H (0.1-0.6) Eos # 0.0 (0.0-0.7) Baso # 0.04 (0.0-2.0) K/mm3 APTT 38.2 H (25.1-36.5) Seconds pCO2 (35-45) mm/Hg pO2 (80-100) mm/Hg HCO3 (21-28) mmol/L ABG pH (7.35-7.45) ABG Total CO2 (22-28) mmol.L ABG O2 Saturation (95-98) % ABG O2 Content (15-23) ML/dl ABG Base Excess (-2.0-3.0) mmol/L ABG Hemoglobin (11.7-17.4) g/dL ABG Carboxyhemoglobin (0.5-1.5) % POC ABG HHb (Measured) (0-5) % ABG Methemoglobin (0.0-3.0) % ABG O2 Capacity (16-24) mL/dl Hgb O2 Saturation (95.0-98.0) % FiO2 % Sodium 149 H (132-148) mmol/L Potassium 4.0 (3.6-5.0) mmol/L Chloride 117 H (98-107) mmol/L Carbon Dioxide 22 (21-33) mmol/L Anion Gap 14 (10-20) BUN 38 H (7-21) mg/dL Creatinine 0.8 (0.8-1.5) mg/dL Est GFR ( Amer) > 60 Est GFR (Non-Af Amer) > 60 Random Glucose 204 H (70-110) mg/dL Calcium 8.0 L (8.4-10.5) mg/dL Total Bilirubin 2.8 H (0.2-1.3) mg/dL AST 42 (17-59) U/L ALT 43 (7-56) U/L Alkaline Phosphatase 138 H (38-126) U/L Total Protein 5.3 L (5.8-8.3) g/dL Albumin 2.2 L (3.0-4.8) g/dL Globulin 3.2 gm/dL Albumin/Globulin Ratio 0.7 L (1.1-1.8) Pleural pH HIV 1&2 Ag/Ab, 4th Gen (Nonreactive) 04/25/17 04/25/17 04/24/17 Range/Units 18:17 13:10 08:30 WBC (4.5-11.0) 10^3/ul RBC (3.5-6.1) 10^6/uL Hgb (14.0-18.0) g/dL Hct (42.0-52.0) % MCV (80.0-105.0) fl MCH (25.0-35.0) pg MCHC (31.0-37.0) g/dl RDW (11.5-14.5) % Plt Count (120.0-450.0) 10^3/uL MPV (7.0-11.0) fl Gran % (50.0-68.0) % Lymph % (Auto) (22.0-35.0) % [place] % (Auto) (1.0-6.0) % Eos % (Auto) (1.5-5.0) % Baso % (Auto) (0.0-3.0) % Gran # (1.4-6.5) Lymph # (1.2-3.4) [place] # (0.1-0.6) Eos # (0.0-0.7) Baso # (0.0-2.0) K/mm3 APTT (25.1-36.5) Seconds pCO2 39 (35-45) mm/Hg pO2 108.0 H (80-100) mm/Hg HCO3 22.5 (21-28) mmol/L ABG pH 7.37 (7.35-7.45) ABG Total CO2 23.7 (22-28) mmol.L ABG O2 Saturation 99.1 H (95-98) % ABG O2 Content 16.5 (15-23) ML/dl ABG Base Excess -2.5 L (-2.0-3.0) mmol/L ABG Hemoglobin 12.0 (11.7-17.4) g/dL ABG Carboxyhemoglobin 1.6 H (0.5-1.5) % POC ABG HHb (Measured) 0.9 (0-5) % ABG Methemoglobin 0.8 (0.0-3.0) % ABG O2 Capacity 16.6 (16-24) mL/dl Hgb O2 Saturation 96.7 (95.0-98.0) % FiO2 40.0 % Sodium (132-148) mmol/L Potassium (3.6-5.0) mmol/L Chloride (98-107) mmol/L Carbon Dioxide (21-33) mmol/L Anion Gap (10-20) BUN (7-21) mg/dL Creatinine (0.8-1.5) mg/dL Est GFR ( Amer) Est GFR (Non-Af Amer) Random Glucose (70-110) mg/dL Calcium (8.4-10.5) mg/dL Total Bilirubin (0.2-1.3) mg/dL AST (17-59) U/L ALT (7-56) U/L Alkaline Phosphatase (38-126) U/L Total Protein (5.8-8.3) g/dL Albumin (3.0-4.8) g/dL Globulin gm/dL Albumin/Globulin Ratio (1.1-1.8) Pleural pH 6.5 HIV 1&2 Ag/Ab, 4th Gen Nonreactive (Nonreactive) Laboratory Results - last 24 hr 04/24/17 04/25/17 04/25/17 08:30 13:10 18:17 WBC RBC Hgb Hct MCV MCH MCHC RDW Plt Count MPV Gran % Lymph % (Auto) [place] % (Auto) Eos % (Auto) Baso % (Auto) Gran # Lymph # [place] # Eos # Baso # APTT pCO2 39 pO2 108.0 H HCO3 22.5 ABG pH 7.37 ABG Total CO2 23.7 ABG O2 Saturation 99.1 H ABG O2 Content 16.5 ABG Base Excess -2.5 L ABG Hemoglobin 12.0 ABG Carboxyhemoglobin 1.6 H POC ABG HHb (Measured) 0.9 ABG Methemoglobin 0.8 ABG O2 Capacity 16.6 Hgb O2 Saturation 96.7 FiO2 40.0 Sodium Potassium Chloride Carbon Dioxide Anion Gap BUN Creatinine Est GFR ( Amer) Est GFR (Non-Af Amer) Random Glucose Calcium Total Bilirubin AST ALT Alkaline Phosphatase Total Protein Albumin Globulin Albumin/Globulin Ratio Pleural pH 6.5 HIV 1&2 Ag/Ab, 4th Gen Nonreactive 04/26/17 04/26/17 04/26/17 05:30 05:30 05:30 WBC 18.6 H RBC 3.92 Hgb 12.4 L Hct 37.5 L MCV 95.7 MCH 31.6 MCHC 33.1 RDW 14.8 H Plt Count 210 MPV 9.7 Gran % 82.8 H Lymph % (Auto) 8.7 L [place] % (Auto) 8.3 H Eos % (Auto) 0.0 L Baso % (Auto) 0.2 Gran # 15.40 H Lymph # 1.6 [place] # 1.6 H Eos # 0.0 Baso # 0.04 APTT 38.2 H pCO2 pO2 HCO3 ABG pH ABG Total CO2 ABG O2 Saturation ABG O2 Content ABG Base Excess ABG Hemoglobin ABG Carboxyhemoglobin POC ABG HHb (Measured) ABG Methemoglobin ABG O2 Capacity Hgb O2 Saturation FiO2 Sodium 149 H Potassium 4.0 Chloride 117 H Carbon Dioxide 22 Anion Gap 14 BUN 38 H Creatinine 0.8 Est GFR ( Amer) > 60 Est GFR (Non-Af Amer) > 60 Random Glucose 204 H Calcium 8.0 L Total Bilirubin 2.8 H AST 42 ALT 43 Alkaline Phosphatase 138 H Total Protein 5.3 L Albumin 2.2 L Globulin 3.2 Albumin/Globulin Ratio 0.7 L Pleural pH HIV 1&2 Ag/Ab, 4th Gen Assessment/Plan - Assessment and Plan (Free Text) Plan: Patient seen and examined, on rounds with resident, agree with note, with following additions/exceptions: Patient is 76yo male a/w septic shock, 2/2 PNA/Empyema, s/p thoracentesis and Chest tube drainage with large bore CT placed by surgery. Pt was 3 pressors overnight, Levophed, Vasopressin, Epinephrine, currently titrated off Epinephrine. Pt is HD stable on levophed, Vasopressin, Stress dose steroids, with good UOP. CT drainage noted, Surgery following. Will attempt to inject with Dornase, tPA into the pleural space. Septic Shock Empyema/Pleural Effusion PNA Hypothyroidism Recommend - cont with ventilatory support, low tidal vol ventilation - antibiotics as per ID - follow up cultures, procalcitonin - cont with vasopressor support, stress dose steroids, goal MAP 65 - monitor HH - monitor FS - follow up CT Surgery, will likely need a VATS at some point - MVT, Thiamine, Folic Acid - GI ppx - DVT ppx Family notified and updated of events Patient remains high risk for moribidity and mortality Critical care time 45 minutes
--- NOTE | 2017-04-26 10:34 | RAD ---
HISTORY: s/p chest tube COMPARISON: Multiple serial examinations preceding the most recent study: 17:53 April 25, 2017. FINDINGS: LUNGS: Improved aeration of the left lower lobe. PLEURA: Commensurate decrease in left pleural effusion. Chest tube in left pleural space in satisfactory position. CARDIOVASCULAR: No radiographic findings to suggest acute or significant cardiovascular disease. OSSEOUS STRUCTURES: Chronic deformity, posttraumatic changes right shoulder. VISUALIZED UPPER ABDOMEN: Normal. OTHER FINDINGS: Stable, satisfactory position ventilatory, vascular and nasogastric apparatus IMPRESSION: Decrease in left pleural effusion, recently placed chest tube in good position in the pleural space on the left. Stable in satisfactory position of support apparatus.
--- NOTE | 2017-04-26 10:59 | CP.PCM.PN ---
Subjective - Date & Time of Evaluation Date of Evaluation: 04/26/17 Time of Evaluation: 10:40 - Subjective Subjective: Comfortable on the ventilator, sedated, no fevers overnight, had chest tube placed on the left side yesterday with more than 1300 mL drained already. Objective - Vital Signs/Intake and Output Vital Signs (last 24 hours): Temp Pulse Resp BP Pulse Ox 98.0 F 83 49 H 95/56 L 99 04/26/17 04:00 04/26/17 06:25 04/25/17 11:00 04/26/17 06:25 04/26/17 06:25 Intake and Output: 04/25/17 04/26/17 18:59 06:59 Intake Total 3900 1621 Output Total 300 1300 Balance 3600 321 - Medications Medications: Current Medications Acetaminophen (Tylenol 325mg Tab) 650 mg PO Q6H PRN PRN Reason: Fever >100.4 F Albuterol/Ipratropium (Duoneb 3 Mg/0.5 Mg (3 Ml) Ud) 3 ml IH [id number] CEM Last Admin: 04/26/17 02:40 Dose: 3 ml Albuterol/Ipratropium (Duoneb 3 Mg/0.5 Mg (3 Ml) Ud) 3 ml IH Q2H PRN PRN Reason: Shortness of Breath Last Admin: 04/24/17 23:34 Dose: 3 ml Albuterol/Ipratropium (Duoneb 3 Mg/0.5 Mg (3 Ml) Ud) 3 ml IH Q2H PRN PRN Reason: Shortness of Breath Last Admin: 04/25/17 00:30 Dose: 3 ml Guaifenesin/Dextromethorphan (Robitussin Dm) 5 ml PO Q6H PRN PRN Reason: Cough Hydrocortisone Sodium Succinate (Solu-Cortef) 50 mg IVP Q6H CEM Last Admin: 04/26/17 06:19 Dose: 50 mg Azithromycin (Zithromax 500mg In Ns) 500 mg in 250 mls @ 167 mls/hr IVPB DAILY CEM PRN Reason: Protocol Last Admin: 04/25/17 12:45 Dose: Not Given Meropenem 1 gm/ Dextrose 100 mls @ 100 mls/hr IVPB Q12H [facility]EM PRN Reason: Protocol Stop: 05/03/17 06:31 Last Admin: 04/26/17 06:13 Dose: 100 mls/hr Fentanyl Citrate (Fentanyl Citrate/Sodium Chloride 1 Mg/100 Ml) 1,000 mcg in 100 mls @ 2 mls/hr IV .Q24H PRN; Protocol; 20 MCG/HR PRN Reason: TITRATE PER MD ORDER Last Admin: 04/26/17 04:29 Dose: 200 mcg/hr, 20 mls/hr Vasopressin 20 units/ Dextrose 101 mls @ 9.09 mls/hr IV .Q11H7M CEM; 0.03 U/MIN PRN Reason: Protocol Last Admin: 04/25/17 23:36 Dose: 9.09 mls/hr Vancomycin HCl (Vancomycin 1gm) 1 gm in 250 mls @ 167 mls/hr IVPB Q12H CEM PRN Reason: Protocol Last Admin: 04/26/17 05:02 Dose: 167 mls/hr Norepinephrine Bitartrate 8 mg (/ Sodium Chloride) 258 mls @ 7.74 mls/hr IV .Q24H PRN; Protocol; 4 MCG/MIN PRN Reason: TITRATE PER PROTOCOL Last Admin: 04/26/17 06:22 Dose: 20 mcg/min, 38.7 mls/hr Epinephrine HCl 1 mg/ Sodium (Chloride) 51 mls @ 3.06 mls/hr IV .[id number] PRN; Protocol; 1 MCG/MIN PRN Reason: TITRATE PER MD ORDER Last Admin: 04/26/17 04:31 Dose: 2 mcg/min, 6.12 mls/hr Midazolam HCl (Versed Inj) 1 mg IVP Q2 PRN PRN Reason: Agitation Last Admin: 04/25/17 12:49 Dose: 1 mg Ondansetron HCl (Zofran Inj) 4 mg IVP Q6H PRN PRN Reason: Nausea/Vomiting Pantoprazole Sodium (Protonix Inj) 40 mg IVP DAILY CEM Last Admin: 04/25/17 12:44 Dose: Not Given - Labs Labs: 04/26/17 05:30 04/26/17 05:30 PT 20.9 SECONDS (9.4-12.5) H 04/24/17 11:16 INR 1.88 (0.93-1.08) H 04/24/17 11:16 APTT 38.2 Seconds (25.1-36.5) H 04/26/17 05:30 - Constitutional Appears: Other (intubated and sedated) - Head Exam Head Exam: NORMAL INSPECTION - ENT Exam Additional comments: Et tube in place - Neck Exam Additional comments: right IJ central venous catheter in place - Respiratory Exam Respiratory Exam: Decreased Breath Sounds Additional comments: left sided chest tube in place - Cardiovascular Exam Cardiovascular Exam: +S1, +S2 - GI/Abdominal Exam GI & Abdominal Exam: Soft. absent: Tenderness Assessment and Plan - Assessment and Plan (Free Text) Plan: Assessment Severe sepsis with ventilator dependent respiratory failure due to left sided severe community-acquired aspiration pneumonia with left sided pleural effusion S/P thoracentesis and now S/P chest tube placement POD #1 history of alcohol abuse hypothyroidism cataracts S/P left eye surgery HTN dementia Plan continue Merrem and Zithromax day 3 pending final blood cx and pleural fluid cx ; will monitor chest tube output will continue to monitor clinically
--- NOTE | 2017-04-26 11:26 | RAD ---
HISTORY: Left pleural effusion. COMPARISON: Multiple serial examinations preceding the most recent study: April 25, 2017. Time of the most recent examination: 19:46. FINDINGS: LUNGS: Consolidative changes/ compressive atelectasis left lower lobe. Similar less pronounced changes left upper lobe. PLEURA: Stable left pleural effusion. Stable position of chest tube in left pleural space. CARDIOVASCULAR: No radiographic findings to suggest acute or significant cardiovascular disease. OSSEOUS STRUCTURES: No significant abnormalities. VISUALIZED UPPER ABDOMEN: Normal. OTHER FINDINGS: Stable, satisfactory position ventilatory, vascular and nasogastric apparatus. IMPRESSION: No significant interval change compared to the prior examination(s). Specifically large residual left pleural effusion and compressive atelectasis primarily affecting left lower lobe.
[2017-04-26] MEDS: Multivitamin With Minerals Tab PO SCH (12:55)
--- NOTE | 2017-04-26 16:01 | PN ---
SUBJECTIVE: The patient is 76-year-old seen and examined, remains on vent, resting comfortably, sedated. Family by the bedside. PHYSICAL EXAMINATION: VITAL SIGNS: He is afebrile. Pulse 79, respiration 26, blood pressure 110/69. LUNGS: Bilateral soft crackles. HEART: S1 and S2 audible. ABDOMEN: Soft, nontender. No rebound, no guarding. NEUROLOGIC: He is sedated, intubated. LABORATORY DATA: WBC 18.6, hemoglobin 12.4, hematocrit 37.5 and platelet 210. Chemistry: Sodium 149, potassium 4.0, chloride 117, CO2 of 22, BUN 38, creatinine 0.8, blood sugar of 204. His blood cultures and urine cultures are negative. Today's x-ray shows no significant interval change compared to the prior exam. He has large residual left pleural effusion and compressive atelectasis affecting the left lower lobe. ASSESSMENT: 1. Respiratory failure, on vent. 2. Left lower lung atelectasis with empyema and pneumonia. 3. Hypothyroidism. 4. Abnormal coag secondary to chronic alcohol use. PLAN: We will continue the patient on current antibiotic that includes meropenem, vancomycin, and Zithromax. We will monitor his CBC and CMP. Discussed with the family, not DNR yet. We will monitor H and H and electrolyte and kidney function. Tony Ochoa MD
[2017-04-26] MEDS: Vasopressin 20 UNITS in Dextrose 5% In Water 100 ML IV SCH (16:04)
[2017-04-26] MEDS: Chlorhexidine 0.12% Oral Sol 480 ml Bot PO SCH (17:00)
[2017-04-26] MEDS ORDERED: Lactated Ringer's 1,000 ML IV SCH (18:00)
[2017-04-27] MEDS: Fentanyl 1000mcg/100ml NS 1,000 MCG/100 ML BAG IV PRN ×5 (00:40→20:49)
[2017-04-27] MEDS: Vasopressin 20 UNITS in Dextrose 5% In Water 100 ML IV SCH ×3 (00:42→22:50)
[2017-04-27] MEDS: Albuterol-Ipratrop 3 mg / 0.5 (3 ml) UD IH SCH ×5 (01:10→19:48)
[2017-04-27 02:26] LABS: LDH PLEURAL FLUID 199 U/L
[2017-04-27] MEDS: Vancomycin 1gm in NS 250ml 1 GM/250 ML BAG IVPB SCH ×2 (03:57→16:38)
[2017-04-27] MEDS: Midazolam 2 MG/2 ML VIAL IVP PRN ×2 (04:50→09:05)
[2017-04-27 05:37] LABS: ARTERIAL BLOOD GAS O2 CAPACITY 15.9 mL/dl (16-24); ARTERIAL BLOOD GAS O2 CONTENT 15.6 ML/dl (15-23); ARTERIAL BLOOD GAS PH 7.34 (7.35-7.45); ARTERIAL BLOOD HGB O2 SAT 96.2 % (95.0-98.0); CARBOXYHEMOGLOBIN 1.3 % (0.5-1.5); HHB 1.6 % (0-5); METHEMOGLOBIN 0.9 % (0.0-3.0)
[2017-04-27] MEDS: Meropenem 1 GM in Dextrose 5% In Water 100 ML IVPB SCH ×3 (05:48→21:00)
[2017-04-27 05:54] LABS: BASO # 0.02 K/mm3 (0.0-2.0); BASO % 0.1 % (0.0-3.0); GRAN # 13.95 (1.4-6.5); GRAN % 85.5 % (50.0-68.0); HEMATOCRIT 33.4 % (42.0-52.0); LYMPH # 1.3 (1.2-3.4); LYMPH % 8.1 % (22.0-35.0); MEAN CELL VOLUME 94.4 fl (80.0-105.0); MEAN CORPUSCULAR HEMOGLOBIN 31.9 pg (25.0-35.0); MEAN CORPUSCULAR HGB CONC 33.8 g/dl (31.0-37.0); MEAN PLATELET VOLUME 9.8 fl (7.0-11.0); MONO % 6.3 % (1.0-6.0); RED CELL DISTRIBUTION WIDTH 14.7 % (11.5-14.5); WHITE BLOOD COUNT 16.3 10^3/ul (4.5-11.0)
[2017-04-27 05:59] LABS: ALB/GLOB RATIO 0.7 (1.1-1.8); ALKALINE PHOSPHATASE 128 U/L (38-126); ALT/SGPT 42 U/L (7-56); AST/SGOT 46 U/L (17-59); BILIRUBIN,TOTAL 1.6 mg/dL (0.2-1.3); BLOOD UREA NITROGEN 46 mg/dL (7-21); CALCIUM 8.1 mg/dL (8.4-10.5); CARBON DIOXIDE 22 mmol/L (21-33); CHLORIDE 117 mmol/L (98-107); GFR AFRICAN-AMERICAN > 60; GLUCOSE,RANDOM 186 mg/dL (70-110); POTASSIUM 3.8 mmol/L (3.6-5.0); SODIUM 146 mmol/L (132-148); TOTAL PROTEIN 4.8 g/dL (5.8-8.3)
[2017-04-27 06:00] LABS: INR 1.92 (0.93-1.08); PARTIAL THROMBOPLASTIN TIME 34.1 Seconds (25.1-36.5)
--- NOTE | 2017-04-27 08:13 | CP.PCM.PN ---
Subjective - Date & Time of Evaluation Date of Evaluation: 04/27/17 Time of Evaluation: 08:10 - Subjective Subjective: Surgery Progress note. Dr. Gamino Pt seen and examined at bedside. No acute events overnight as per nursing staff. Patient intubated and sedated, on vent PRVC, PEEP 5, FiO2 40%. Opens eyes and localizes to painful stimuli. CT to suction with ~250cc/24hrs of serosang output. Objective - Vital Signs/Intake and Output Vital Signs (last 24 hours): Temp Pulse Resp BP Pulse Ox 97.5 F L 66 18 128/71 100 04/27/17 04:00 04/27/17 06:10 04/27/17 07:35 04/27/17 06:10 04/27/17 07:35 Intake and Output: 04/27/17 04/27/17 06:59 18:59 Intake Total Output Total Balance - Medications Medications: Current Medications Acetaminophen (Tylenol 325mg Tab) 650 mg PO Q6H PRN PRN Reason: Fever >100.4 F Albuterol/Ipratropium (Duoneb 3 Mg/0.5 Mg (3 Ml) Ud) 3 ml IH [id number] [facility] Last Admin: 04/27/17 07:35 Dose: 3 ml Albuterol/Ipratropium (Duoneb 3 Mg/0.5 Mg (3 Ml) Ud) 3 ml IH Q2H PRN PRN Reason: Shortness of Breath Last Admin: 04/24/17 23:34 Dose: 3 ml Albuterol/Ipratropium (Duoneb 3 Mg/0.5 Mg (3 Ml) Ud) 3 ml IH Q2H PRN PRN Reason: Shortness of Breath Last Admin: 04/25/17 00:30 Dose: 3 ml Chlorhexidine Gluconate (Peridex) 15 ml PO BID [facility] Last Admin: 04/26/17 17:00 Dose: 15 ml Guaifenesin/Dextromethorphan (Robitussin Dm) 5 ml PO Q6H PRN PRN Reason: Cough Heparin Sodium (Porcine) (Heparin) 5,000 units SC Q12 CEM PRN Reason: Protocol Last Admin: 04/26/17 21:11 Dose: 5,000 units Hydrocortisone Sodium Succinate (Solu-Cortef) 50 mg IVP Q6H [facility] Last Admin: 04/27/17 06:25 Dose: 50 mg Azithromycin (Zithromax 500mg In Ns) 500 mg in 250 mls @ 167 mls/hr IVPB DAILY CEM PRN Reason: Protocol Last Admin: 04/26/17 09:37 Dose: 167 mls/hr Meropenem 1 gm/ Dextrose 100 mls @ 100 mls/hr IVPB Q12H CEM PRN Reason: Protocol Stop: 05/03/17 06:31 Last Admin: 04/27/17 05:48 Dose: 100 mls/hr Fentanyl Citrate (Fentanyl Citrate/Sodium Chloride 1 Mg/100 Ml) 1,000 mcg in 100 mls @ 2 mls/hr IV .Q24H PRN; Protocol; 20 MCG/HR PRN Reason: TITRATE PER MD ORDER Last Admin: 04/27/17 05:34 Dose: 15 mcg/hr, 1.5 mls/hr Vasopressin 20 units/ Dextrose 101 mls @ 9.09 mls/hr IV .Q11H7M CEM; 0.03 U/MIN PRN Reason: Protocol Last Admin: 04/27/17 00:42 Dose: 9.09 mls/hr Vancomycin HCl (Vancomycin 1gm) 1 gm in 250 mls @ 167 mls/hr IVPB Q12H CEM PRN Reason: Protocol Last Admin: 04/27/17 03:57 Dose: 167 mls/hr Norepinephrine Bitartrate 8 mg (/ Sodium Chloride) 258 mls @ 7.74 mls/hr IV .Q24H PRN; Protocol; 4 MCG/MIN PRN Reason: TITRATE PER PROTOCOL Last Admin: 04/27/17 05:50 Dose: 6 mcg/min, 11.61 mls/hr Lactated Ringer's (Lactated Ringer's) 1,000 mls @ 999 mls/hr IV .Q1H1M CEM Last Admin: 04/26/17 18:00 Dose: 999 mls/hr Midazolam HCl (Versed Inj) 1 mg IVP Q2 PRN PRN Reason: Agitation Last Admin: 04/27/17 04:50 Dose: 1 mg Multivitamins/Minerals (Therapeutic-M Tab) 1 tab PO 0800 [facility] Last Admin: 04/26/17 12:55 Dose: 1 tab Ondansetron HCl (Zofran Inj) 4 mg IVP Q6H PRN PRN Reason: Nausea/Vomiting Pantoprazole Sodium (Protonix Inj) 40 mg IVP DAILY CEM Last Admin: 04/26/17 09:38 Dose: 40 mg - Labs Labs: 04/27/17 05:40 04/27/17 05:40 PT 21.4 SECONDS (9.4-12.5) H 04/27/17 05:40 INR 1.92 (0.93-1.08) H 04/27/17 05:40 APTT 34.1 Seconds (25.1-36.5) 04/27/17 05:40 - Constitutional Appears: No Acute Distress - Head Exam Head Exam: ATRAUMATIC, NORMAL INSPECTION, NORMOCEPHALIC - Eye Exam Eye Exam: EOMI - ENT Exam Additional comments: intubated - Respiratory Exam Additional comments: on vent. PRVC. Left sided CT in place w/ 250cc/24hrs serrosang output. Dressing Clean, dry and Intact. No leak - Cardiovascular Exam Cardiovascular Exam: absent: Tachycardia, JVD - GI/Abdominal Exam GI & Abdominal Exam: Soft. absent: Distended, Tenderness - Neurological Exam Additional comments: sedated - Skin Skin Exam: Dry, Intact, Warm Assessment and Plan - Assessment and Plan (Free Text) Assessment: 76yo M with empyema s/p Left sided Chest Tube placement on 04/25. - Continue CT to suction. Monitor output - f/u pleural fluid analysis and Cxs - pending repeat CT Chest - continue ABX - f/u daily CXR - CT surgeon f/u on Friday for further CT surgery recs Further recs as per Dr. Stevenson Abel PGY1 surgery pager: [phone]
[2017-04-27] MEDS: Multivitamin With Minerals Tab PO SCH (08:26)
[2017-04-27] MEDS: Azithromycin 500MG/NS 250ml 500 MG/250 ML BAG IVPB SCH (09:02)
--- NOTE | 2017-04-27 10:08 | CT ---
PROCEDURE: CT Chest without contrast HISTORY: left pleural effusion, s/p chest tube COMPARISON: 07/03/2016 CT thorax Multiple serial chest x-rays preceding the most recent study: April 26, 2017. TECHNIQUE: Contiguous axial images were obtained through the chest without intravenous contrast enhancement. Sagittal and coronal reconstructions were performed. Radiation dose (DLP): 729.75 mGy-cm. This CT exam was performed using one or more of the following dose reduction techniques: Automated exposure control, adjustment of the mA and/or kV according to patient size, and/or use of iterative reconstruction technique. FINDINGS: LUNGS: Considerable improvement, re-expansion of the left lung following chest tube placement and removal of large left pleural effusion. Consolidative changes confined to the lingula and left lower lobe. Locules of air remaining in residual collapsed left lower lobe. However there substantial improvement compared to the prior CT scan Dependent atelectasis right lower lobe. MEDIASTINUM: She Normal sized heart. Main pulmonary artery unremarkable. No vascular congestion. No lymphadenopathy. PLEURA: Chest tube in satisfactory position in the left pleural space, trace left pneumothorax. No evidence of tension pneumothorax. Trace right pleural effusion. BONES: No fracture. No destructive lesion. UPPER ABDOMEN: Small volume upper abdominal ascites. OTHER FINDINGS: Satisfactory position of chest tube in the left pleural space. Satisfactory position of the nasogastric tube. Satisfactory position of the endotracheal tube 4 cm above the richard. IMPRESSION: Status post chest tube placement with near complete evacuation of fluid in the left pleural space. Markedly improved aeration, re-expansion of the left lung. Trace residual left pneumothorax. There continue be locules of air within remaining collapsed left lower lobe and residual left pleural effusion.
--- NOTE | 2017-04-27 10:09 | CP.CCUPN ---
<Ramiro Alicia - Last Filed: 04/27/17 10:32> CCU Subjective - Physician Review Subjective (Free Text): 04/27/17 10:06 Ramiro Alicia D.O. PGY-2, Critical Care Progress Note 76 yo male with past medical history of dementia, alcohol abuse and HTN who was placed in the ICU for worsening SOB and altered mentation and found to have extensive left hemithorax opacification. Patient was seen and examined at bedside. Patient continues to be intubated at this point, however notably more awake and needing more sedation. No acute overnight events. Surgery team at bedside. CCU Objective - Vital Signs / Intake & Output Vital Signs (Last 4 hours): Vital Signs Pulse Resp BP Pulse Ox 04/27/17 07:35 18 100 04/27/17 06:10 58 L 119/66 100 Intake and Output (Last 8hrs): Intake & Output 04/26/17 04/27/17 04/27/17 23:59 06:59 14:59 Intake Total 37 Output Total Balance 37 Intake: IV 37 ANTIBIOTIC Right Antecubital Right Internal Jugular VASOPRESSIN Tube Feeding Output: Chest Tube Drainage Left Mid-Axillary Chest Urine Urine, Voided Other: # Bowel Movements - Physical Exam Head: Positive for: Atraumatic, Normocephalic Extroacular Muscles: Positive for: Other (senile archus) Conjunctiva: Positive for: Normal Ears: Positive for: Normal Mouth: Positive for: Moist Mucous Membranes, Other (OGT in place, ET tube in place with bite lock) Pharnyx: Positive for: Normal. Negative for: ERYTHEMA, EXUDATE Nose (External): Positive for: Atraumatic Neck: Positive for: Trachea Midline. Negative for: Meningeal Signs Respiratory/Chest: Positive for: Clear to Auscultation, Good Air Exchange. Negative for: Respiratory Distress, Wheezes, Rales, Rhonchi Cardiovascular: Positive for: Normal S1, S2. Negative for: Murmurs, Rub, Gallop Abdomen: Positive for: Normal Bowel Sounds. Negative for: Tenderness, Distention Back: Negative for: CVA Tenderness Upper Extremity: Positive for: Normal Inspection. Negative for: Cyanosis, Edema , Tenderness Lower Extremity: Positive for: Normal Inspection. Negative for: Edema, CALF TENDERNESS Neurological: Positive for: Other (intubated and sedated) Skin: Positive for: Warm, Dry - Medications Active Medications: Active Medications Generic Name Dose Route Start Last Admin Trade Name Freq PRN Reason Stop Dose Admin Acetaminophen 650 mg 04/23/17 16:13 Tylenol 325mg Tab PO Q6H PRN Fever >100.4 F Albuterol/Ipratropium 3 ml 04/23/17 20:00 04/27/17 07:35 Duoneb 3 Mg/0.5 Mg (3 Ml) Ud IH 3 ml [id number] CEM Administration Albuterol/Ipratropium 3 ml 04/23/17 16:13 04/24/17 23:34 Duoneb 3 Mg/0.5 Mg (3 Ml) Ud IH 3 ml Q2H PRN Administration Shortness of Breath Albuterol/Ipratropium 3 ml 04/25/17 00:07 04/25/17 00:30 Duoneb 3 Mg/0.5 Mg (3 Ml) Ud IH 3 ml Q2H PRN Administration Shortness of Breath Chlorhexidine Gluconate 15 ml 04/26/17 18:00 04/26/17 17:00 Peridex PO 15 ml BID CEM Administration Guaifenesin/Dextromethorphan 5 ml 04/24/17 19:29 Robitussin Dm PO Q6H PRN Cough Heparin Sodium (Porcine) 5,000 units 04/26/17 11:45 04/27/17 09:03 Heparin SC 5,000 units Q12 CEM Administration Protocol Hydrocortisone Sodium Succinate 50 mg 04/25/17 13:00 04/27/17 06:25 Solu-Cortef IVP 50 mg Q6H CEM Administration Azithromycin 500 mg in 250 mls @ 167 mls/hr 04/24/17 10:00 04/27/17 09:02 Zithromax 500mg In Ns IVPB 167 mls/hr DAILY CEM Administration Protocol Fentanyl Citrate 1,000 mcg in 100 mls @ 2 mls/hr 04/25/17 12:01 04/27/17 05: 34 Fentanyl Citrate/Sodium Chloride 1 Mg/100 Ml IV 15 mcg/hr .Q24H PRN 1.5 mls/hr TITRATE PER MD ORDER Administration Protocol 20 MCG/HR Vasopressin 20 units/ Dextrose 101 mls @ 9.09 mls/hr 04/25/17 13:00 04/27/17 00:42 IV 9.09 mls/hr .Q11H7M CEM Administration Protocol 0.03 U/MIN Vancomycin HCl 1 gm in 250 mls @ 167 mls/hr 04/25/17 16:30 04/27/17 03:57 Vancomycin 1gm IVPB 167 mls/hr Q12H CEM Administration Protocol Norepinephrine Bitartrate 8 mg 258 mls @ 7.74 mls/hr 04/25/17 22:48 04/27/17 08:33 / Sodium Chloride IV 5 mcg/min .Q24H PRN 9.67 mls/hr TITRATE PER PROTOCOL Titration Protocol 4 MCG/MIN Lactated Ringer's 1,000 mls @ 999 mls/hr 04/26/17 18:00 04/26/17 18:00 Lactated Ringer's IV 999 mls/hr .Q1H1M CEM Administration Meropenem 1 gm/ Dextrose 100 mls @ 100 mls/hr 04/27/17 14:00 IVPB 05/06/17 14:01 Q8 CEM Protocol Midazolam HCl 1 mg 04/25/17 12:08 04/27/17 09:05 Versed Inj IVP 1 mg Q2 PRN Administration Agitation Multivitamins/Minerals 1 tab 04/26/17 12:00 04/27/17 08:26 Therapeutic-M Tab PO 1 tab 0800 CEM Administration Ondansetron HCl 4 mg 04/23/17 16:13 Zofran Inj IVP Q6H PRN Nausea/Vomiting Pantoprazole Sodium 40 mg 04/23/17 16:15 04/27/17 09:03 Protonix Inj IVP 40 mg DAILY CEM Administration - Patient Studies Lab Studies: Microbiology Studies 04/24/17 17:20 Gram Stain - Final Pleural Fluid Anaerobic Culture - Final NO ANAEROBES ISOLATED. Body Fluid Culture - Preliminary NO GROWTH AFTER 2 DAYS 04/24/17 15:00 Urine Culture - Final Urine No Growth (<1,000 CFU/ML) 04/25/17 02:40 MRSA Culture (Admit) - Final Naris MRSA NOT DETECTED Lab Studies 04/27/17 04/27/17 04/27/17 Range/Units 05:40 05:40 05:40 WBC 16.3 H (4.5-11.0) 10^3/ul RBC 3.54 (3.5-6.1) 10^6/uL Hgb 11.3 L (14.0-18.0) g/dL Hct 33.4 L (42.0-52.0) % MCV 94.4 (80.0-105.0) fl MCH 31.9 (25.0-35.0) pg MCHC 33.8 (31.0-37.0) g/dl RDW 14.7 H (11.5-14.5) % Plt Count 163 (120.0-450.0) 10^3/uL MPV 9.8 (7.0-11.0) fl Gran % 85.5 H (50.0-68.0) % Lymph % (Auto) 8.1 L (22.0-35.0) % [place] % (Auto) 6.3 H (1.0-6.0) % Eos % (Auto) 0.0 L (1.5-5.0) % Baso % (Auto) 0.1 (0.0-3.0) % Gran # 13.95 H (1.4-6.5) Lymph # 1.3 (1.2-3.4) [place] # 1.0 H (0.1-0.6) Eos # 0.0 (0.0-0.7) Baso # 0.02 (0.0-2.0) K/mm3 PT 21.4 H (9.4-12.5) SECONDS INR 1.92 H (0.93-1.08) APTT 34.1 (25.1-36.5) Seconds pCO2 (35-45) mm/Hg pO2 (80-100) mm/Hg HCO3 (21-28) mmol/L ABG pH (7.35-7.45) ABG Total CO2 (22-28) mmol.L ABG O2 Saturation (95-98) % ABG O2 Content (15-23) ML/dl ABG Base Excess (-2.0-3.0) mmol/L ABG Hemoglobin (11.7-17.4) g/dL ABG Carboxyhemoglobin (0.5-1.5) % POC ABG HHb (Measured) (0-5) % ABG Methemoglobin (0.0-3.0) % ABG O2 Capacity (16-24) mL/dl Hgb O2 Saturation (95.0-98.0) % FiO2 % Sodium 146 (132-148) mmol/L Potassium 3.8 (3.6-5.0) mmol/L Chloride 117 H (98-107) mmol/L Carbon Dioxide 22 (21-33) mmol/L Anion Gap 11 (10-20) BUN 46 H (7-21) mg/dL Creatinine 0.9 (0.8-1.5) mg/dL Est GFR ( Amer) > 60 Est GFR (Non-Af Amer) > 60 Random Glucose 186 H (70-110) mg/dL Calcium 8.1 L (8.4-10.5) mg/dL Total Bilirubin 1.6 H (0.2-1.3) mg/dL AST 46 (17-59) U/L ALT 42 (7-56) U/L Alkaline Phosphatase 128 H (38-126) U/L Total Protein 4.8 L (5.8-8.3) g/dL Albumin 1.9 L (3.0-4.8) g/dL Globulin 2.9 gm/dL Albumin/Globulin Ratio 0.7 L (1.1-1.8) Pleural Total Protein g/dL Pleural LDH U/L Pleural Glucose mg/dL 04/27/17 04/24/17 04/24/17 Range/Units 05:30 17:20 17:20 WBC (4.5-11.0) 10^3/ul RBC (3.5-6.1) 10^6/uL Hgb (14.0-18.0) g/dL Hct (42.0-52.0) % MCV (80.0-105.0) fl MCH (25.0-35.0) pg MCHC (31.0-37.0) g/dl RDW (11.5-14.5) % Plt Count (120.0-450.0) 10^3/uL MPV (7.0-11.0) fl Gran % (50.0-68.0) % Lymph % (Auto) (22.0-35.0) % [place] % (Auto) (1.0-6.0) % Eos % (Auto) (1.5-5.0) % Baso % (Auto) (0.0-3.0) % Gran # (1.4-6.5) Lymph # (1.2-3.4) [place] # (0.1-0.6) Eos # (0.0-0.7) Baso # (0.0-2.0) K/mm3 PT (9.4-12.5) SECONDS INR (0.93-1.08) APTT (25.1-36.5) Seconds pCO2 39 (35-45) mm/Hg pO2 106.0 H (80-100) mm/Hg HCO3 21.0 (21-28) mmol/L ABG pH 7.34 L (7.35-7.45) ABG Total CO2 22.2 (22-28) mmol.L ABG O2 Saturation 98.4 H (95-98) % ABG O2 Content 15.6 (15-23) ML/dl ABG Base Excess -4.4 L (-2.0-3.0) mmol/L ABG Hemoglobin 11.4 L (11.7-17.4) g/dL ABG Carboxyhemoglobin 1.3 (0.5-1.5) % POC ABG HHb (Measured) 1.6 (0-5) % ABG Methemoglobin 0.9 (0.0-3.0) % ABG O2 Capacity 15.9 L (16-24) mL/dl Hgb O2 Saturation 96.2 (95.0-98.0) % FiO2 40.0 % Sodium (132-148) mmol/L Potassium (3.6-5.0) mmol/L Chloride (98-107) mmol/L Carbon Dioxide (21-33) mmol/L Anion Gap (10-20) BUN (7-21) mg/dL Creatinine (0.8-1.5) mg/dL Est GFR ( Amer) Est GFR (Non-Af Amer) Random Glucose (70-110) mg/dL Calcium (8.4-10.5) mg/dL Total Bilirubin (0.2-1.3) mg/dL AST (17-59) U/L ALT (7-56) U/L Alkaline Phosphatase (38-126) U/L Total Protein (5.8-8.3) g/dL Albumin (3.0-4.8) g/dL Globulin gm/dL Albumin/Globulin Ratio (1.1-1.8) Pleural Total Protein <3.0 g/dL Pleural LDH 199 U/L Pleural Glucose 129 mg/dL Laboratory Results - last 24 hr 04/24/17 04/24/17 04/27/17 17:20 17:20 05:30 WBC RBC Hgb Hct MCV MCH MCHC RDW Plt Count MPV Gran % Lymph % (Auto) [place] % (Auto) Eos % (Auto) Baso % (Auto) Gran # Lymph # [place] # Eos # Baso # PT INR APTT pCO2 39 pO2 106.0 H HCO3 21.0 ABG pH 7.34 L ABG Total CO2 22.2 ABG O2 Saturation 98.4 H ABG O2 Content 15.6 ABG Base Excess -4.4 L ABG Hemoglobin 11.4 L ABG Carboxyhemoglobin 1.3 POC ABG HHb (Measured) 1.6 ABG Methemoglobin 0.9 ABG O2 Capacity 15.9 L Hgb O2 Saturation 96.2 FiO2 40.0 Sodium Potassium Chloride Carbon Dioxide Anion Gap BUN Creatinine Est GFR ( Amer) Est GFR (Non-Af Amer) Random Glucose Calcium Total Bilirubin AST ALT Alkaline Phosphatase Total Protein Albumin Globulin Albumin/Globulin Ratio Pleural Total Protein <3.0 Pleural LDH 199 Pleural Glucose 129 04/27/17 04/27/17 04/27/17 05:40 05:40 05:40 WBC 16.3 H RBC 3.54 Hgb 11.3 L Hct 33.4 L MCV 94.4 MCH 31.9 MCHC 33.8 RDW 14.7 H Plt Count 163 MPV 9.8 Gran % 85.5 H Lymph % (Auto) 8.1 L [place] % (Auto) 6.3 H Eos % (Auto) 0.0 L Baso % (Auto) 0.1 Gran # 13.95 H Lymph # 1.3 [place] # 1.0 H Eos # 0.0 Baso # 0.02 PT 21.4 H INR 1.92 H APTT 34.1 pCO2 pO2 HCO3 ABG pH ABG Total CO2 ABG O2 Saturation ABG O2 Content ABG Base Excess ABG Hemoglobin ABG Carboxyhemoglobin POC ABG HHb (Measured) ABG Methemoglobin ABG O2 Capacity Hgb O2 Saturation FiO2 Sodium 146 Potassium 3.8 Chloride 117 H Carbon Dioxide 22 Anion Gap 11 BUN 46 H Creatinine 0.9 Est GFR ( Amer) > 60 Est GFR (Non-Af Amer) > 60 Random Glucose 186 H Calcium 8.1 L Total Bilirubin 1.6 H AST 46 ALT 42 Alkaline Phosphatase 128 H Total Protein 4.8 L Albumin 1.9 L Globulin 2.9 Albumin/Globulin Ratio 0.7 L Pleural Total Protein Pleural LDH Pleural Glucose Fingerstick Blood Sugar Results: 46 Assessment/Plan - Assessment and Plan (Free Text) Assessment: 76 yo male with past medical history of dementia, alcohol abuse and HTN who was placed in the ICU for worsening SOB and altered mentation and found to have extensive left hemithorax opacification, now s/p thoracentesis with turbid yellow fluid 1050ml removed, s/p chest tube insertion. Plan: Neurologic History of dementia, currently intubated and sedated Off sedation moving all 4 extremities, opens eyes spontaneously, nonfocal exam Cont sedation with vacation daily Cardiovascular Septic shock, now off epi gtt but still on levo gtt 5 mcg and vasopressin, continue to wean, maintain MAP >65 Hemodynamically stable at this time Low albumin, will supplement IV Continue to monitor Pulmonary Large left sided pleural effusion with atelectasis on chest CT Respiratory Intubated PRVC 400/18/5/40% S/p thoracentesis with 1050ml yellow turbid fluid Surgery consulted, s/p 1200ml mostly yellow turbid fluid, last ~300ml seros[address] CT surgery consulted, possibly vats Repeat chest CT today Cont duonebs q6h and q2h prn Continue azithromycin D4, meropenem D4, and vancomycin D3 Thoracentesis LDH elevated support exudate, pending cultures no growth x2 days Cont aspiration precautions HOB >35 GI On feeds per primary, jevity 1.2 @ 25ml at this time Monitoring residuals Goal 30ml Hyperbiliruinemia downtrending, monitor Renal/ Electrolyes Cont strict I&O Hypernatremic yesterday resolved, cont free water per OGT Following closely ID Septic shock likely from what appears to be a parapneumonic empyema on left chest Given alcoholism history likely anaerobic aspiration PNA, procal elevated As above cont azithro/merrem/vanco ID Dr. Augustin following, recs appreciated Maintain euthermia Endo History of hypothyriodism, elevated TSH but T4 wnl, TSH likely acute phase Maintain blood sugars between 140-180 per NICE SUGAR trial GI/DVT ppx: protonix/heparin/SCDs Patient seen and examined and case discussed in detail with attending physician. - Date & Time Date: 04/27/17 Time: 07:20 <Jonathan Santana - Last Filed: 04/27/17 12:39> CCU Objective - Vital Signs / Intake & Output Vital Signs (Last 4 hours): Vital Signs BP 04/27/17 10:27 93/54 L Intake and Output (Last 8hrs): Intake & Output 04/26/17 04/27/17 04/27/17 23:59 06:59 14:59 Intake Total 137 Output Total Balance 137 Intake: IV 137 ANTIBIOTIC Right Antecubital Right Internal Jugular VASOPRESSIN Tube Feeding Output: Chest Tube Drainage Left Mid-Axillary Chest Urine Urine, Voided Other: # Bowel Movements - Medications Active Medications: Active Medications Generic Name Dose Route Start Last Admin Trade Name Freq PRN Reason Stop Dose Admin Acetaminophen 650 mg 04/23/17 16:13 Tylenol 325mg Tab PO Q6H PRN Fever >100.4 F Albuterol/Ipratropium 3 ml 04/23/17 20:00 04/27/17 07:35 Duoneb 3 Mg/0.5 Mg (3 Ml) Ud IH 3 ml [id number] CEM Administration Albuterol/Ipratropium 3 ml 04/23/17 16:13 04/24/17 23:34 Duoneb 3 Mg/0.5 Mg (3 Ml) Ud IH 3 ml Q2H PRN Administration Shortness of Breath Albuterol/Ipratropium 3 ml 04/25/17 00:07 04/25/17 00:30 Duoneb 3 Mg/0.5 Mg (3 Ml) Ud IH 3 ml Q2H PRN Administration Shortness of Breath Chlorhexidine Gluconate 15 ml 04/26/17 18:00 04/27/17 10:32 Peridex PO 15 ml BID CEM Administration Folic Acid 1 mg 04/27/17 12:00 Folic Acid PO DAILY CEM Guaifenesin/Dextromethorphan 5 ml 04/24/17 19:29 Robitussin Dm PO Q6H PRN Cough Heparin Sodium (Porcine) 5,000 units 04/26/17 11:45 04/27/17 09:03 Heparin SC 5,000 units Q12 CEM Administration Protocol Hydrocortisone Sodium Succinate 50 mg 04/25/17 13:00 04/27/17 06:25 Solu-Cortef IVP 50 mg Q6H CEM Administration Azithromycin 500 mg in 250 mls @ 167 mls/hr 04/24/17 10:00 04/27/17 09:02 Zithromax 500mg In Ns IVPB 167 mls/hr DAILY CEM Administration Protocol Fentanyl Citrate 1,000 mcg in 100 mls @ 2 mls/hr 04/25/17 12:01 04/27/17 10: 30 Fentanyl Citrate/Sodium Chloride 1 Mg/100 Ml IV 175 mcg/hr .Q24H PRN 17.5 mls/hr TITRATE PER MD ORDER Administration Protocol 20 MCG/HR Vasopressin 20 units/ Dextrose 101 mls @ 9.09 mls/hr 04/25/17 13:00 04/27/17 10:27 IV 9.09 mls/hr .Q11H7M CEM Administration Protocol 0.03 U/MIN Vancomycin HCl 1 gm in 250 mls @ 167 mls/hr 04/25/17 16:30 04/27/17 03:57 Vancomycin 1gm IVPB 167 mls/hr Q12H CEM Administration Protocol Norepinephrine Bitartrate 8 mg 258 mls @ 7.74 mls/hr 04/25/17 22:48 04/27/17 08:33 / Sodium Chloride IV 5 mcg/min .Q24H PRN 9.67 mls/hr TITRATE PER PROTOCOL Titration Protocol 4 MCG/MIN Meropenem 1 gm/ Dextrose 100 mls @ 100 mls/hr 04/27/17 14:00 IVPB 05/06/17 14:01 Q8 CEM Protocol Albumin Human 100 mls @ 1 mls/min 04/27/17 11:15 04/27/17 11:43 Albumin Human 25% (25 Gm/100 Ml) IVPB 04/28/17 00:54 1 mls/min Q6H CEM Administration Midazolam HCl 1 mg 04/25/17 12:08 04/27/17 09:05 Versed Inj IVP 1 mg Q2 PRN Administration Agitation Multivitamins/Minerals 1 tab 04/26/17 12:00 04/27/17 08:26 Therapeutic-M Tab PO 1 tab 0800 CEM Administration Ondansetron HCl 4 mg 04/23/17 16:13 Zofran Inj IVP Q6H PRN Nausea/Vomiting Pantoprazole Sodium 40 mg 04/23/17 16:15 04/27/17 09:03 Protonix Inj IVP 40 mg DAILY CEM Administration - Patient Studies Lab Studies: Microbiology Studies 04/24/17 17:20 Gram Stain - Final Pleural Fluid Anaerobic Culture - Final NO ANAEROBES ISOLATED. Body Fluid Culture - Preliminary NO GROWTH AFTER 2 DAYS 04/24/17 15:00 Urine Culture - Final Urine No Growth (<1,000 CFU/ML) 04/25/17 02:40 MRSA Culture (Admit) - Final Naris MRSA NOT DETECTED Lab Studies 04/27/17 04/27/17 04/27/17 Range/Units 05:40 05:40 05:40 WBC 16.3 H (4.5-11.0) 10^3/ul RBC 3.54 (3.5-6.1) 10^6/uL Hgb 11.3 L (14.0-18.0) g/dL Hct 33.4 L (42.0-52.0) % MCV 94.4 (80.0-105.0) fl MCH 31.9 (25.0-35.0) pg MCHC 33.8 (31.0-37.0) g/dl RDW 14.7 H (11.5-14.5) % Plt Count 163 (120.0-450.0) 10^3/uL MPV 9.8 (7.0-11.0) fl Gran % 85.5 H (50.0-68.0) % Lymph % (Auto) 8.1 L (22.0-35.0) % [place] % (Auto) 6.3 H (1.0-6.0) % Eos % (Auto) 0.0 L (1.5-5.0) % Baso % (Auto) 0.1 (0.0-3.0) % Gran # 13.95 H (1.4-6.5) Lymph # 1.3 (1.2-3.4) [place] # 1.0 H (0.1-0.6) Eos # 0.0 (0.0-0.7) Baso # 0.02 (0.0-2.0) K/mm3 PT 21.4 H (9.4-12.5) SECONDS INR 1.92 H (0.93-1.08) APTT 34.1 (25.1-36.5) Seconds pCO2 (35-45) mm/Hg pO2 (80-100) mm/Hg HCO3 (21-28) mmol/L ABG pH (7.35-7.45) ABG Total CO2 (22-28) mmol.L ABG O2 Saturation (95-98) % ABG O2 Content (15-23) ML/dl ABG Base Excess (-2.0-3.0) mmol/L ABG Hemoglobin (11.7-17.4) g/dL ABG Carboxyhemoglobin (0.5-1.5) % POC ABG HHb (Measured) (0-5) % ABG Methemoglobin (0.0-3.0) % ABG O2 Capacity (16-24) mL/dl Hgb O2 Saturation (95.0-98.0) % FiO2 % Sodium 146 (132-148) mmol/L Potassium 3.8 (3.6-5.0) mmol/L Chloride 117 H (98-107) mmol/L Carbon Dioxide 22 (21-33) mmol/L Anion Gap 11 (10-20) BUN 46 H (7-21) mg/dL Creatinine 0.9 (0.8-1.5) mg/dL Est GFR ( Amer) > 60 Est GFR (Non-Af Amer) > 60 Random Glucose 186 H (70-110) mg/dL Calcium 8.1 L (8.4-10.5) mg/dL Total Bilirubin 1.6 H (0.2-1.3) mg/dL AST 46 (17-59) U/L ALT 42 (7-56) U/L Alkaline Phosphatase 128 H (38-126) U/L Total Protein 4.8 L (5.8-8.3) g/dL Albumin 1.9 L (3.0-4.8) g/dL Globulin 2.9 gm/dL Albumin/Globulin Ratio 0.7 L (1.1-1.8) Pleural Total Protein g/dL Pleural LDH U/L Pleural Glucose mg/dL 04/27/17 04/24/17 04/24/17 Range/Units 05:30 17:20 17:20 WBC (4.5-11.0) 10^3/ul RBC (3.5-6.1) 10^6/uL Hgb (14.0-18.0) g/dL Hct (42.0-52.0) % MCV (80.0-105.0) fl MCH (25.0-35.0) pg MCHC (31.0-37.0) g/dl RDW (11.5-14.5) % Plt Count (120.0-450.0) 10^3/uL MPV (7.0-11.0) fl Gran % (50.0-68.0) % Lymph % (Auto) (22.0-35.0) % [place] % (Auto) (1.0-6.0) % Eos % (Auto) (1.5-5.0) % Baso % (Auto) (0.0-3.0) % Gran # (1.4-6.5) Lymph # (1.2-3.4) [place] # (0.1-0.6) Eos # (0.0-0.7) Baso # (0.0-2.0) K/mm3 PT (9.4-12.5) SECONDS INR (0.93-1.08) APTT (25.1-36.5) Seconds pCO2 39 (35-45) mm/Hg pO2 106.0 H (80-100) mm/Hg HCO3 21.0 (21-28) mmol/L ABG pH 7.34 L (7.35-7.45) ABG Total CO2 22.2 (22-28) mmol.L ABG O2 Saturation 98.4 H (95-98) % ABG O2 Content 15.6 (15-23) ML/dl ABG Base Excess -4.4 L (-2.0-3.0) mmol/L ABG Hemoglobin 11.4 L (11.7-17.4) g/dL ABG Carboxyhemoglobin 1.3 (0.5-1.5) % POC ABG HHb (Measured) 1.6 (0-5) % ABG Methemoglobin 0.9 (0.0-3.0) % ABG O2 Capacity 15.9 L (16-24) mL/dl Hgb O2 Saturation 96.2 (95.0-98.0) % FiO2 40.0 % Sodium (132-148) mmol/L Potassium (3.6-5.0) mmol/L Chloride (98-107) mmol/L Carbon Dioxide (21-33) mmol/L Anion Gap (10-20) BUN (7-21) mg/dL Creatinine (0.8-1.5) mg/dL Est GFR ( Amer) Est GFR (Non-Af Amer) Random Glucose (70-110) mg/dL Calcium (8.4-10.5) mg/dL Total Bilirubin (0.2-1.3) mg/dL AST (17-59) U/L ALT (7-56) U/L Alkaline Phosphatase (38-126) U/L Total Protein (5.8-8.3) g/dL Albumin (3.0-4.8) g/dL Globulin gm/dL Albumin/Globulin Ratio (1.1-1.8) Pleural Total Protein <3.0 g/dL Pleural LDH 199 U/L Pleural Glucose 129 mg/dL Laboratory Results - last 24 hr 04/24/17 04/24/17 04/27/17 17:20 17:20 05:30 WBC RBC Hgb Hct MCV MCH MCHC RDW Plt Count MPV Gran % Lymph % (Auto) [place] % (Auto) Eos % (Auto) Baso % (Auto) Gran # Lymph # [place] # Eos # Baso # PT INR APTT pCO2 39 pO2 106.0 H HCO3 21.0 ABG pH 7.34 L ABG Total CO2 22.2 ABG O2 Saturation 98.4 H ABG O2 Content 15.6 ABG Base Excess -4.4 L ABG Hemoglobin 11.4 L ABG Carboxyhemoglobin 1.3 POC ABG HHb (Measured) 1.6 ABG Methemoglobin 0.9 ABG O2 Capacity 15.9 L Hgb O2 Saturation 96.2 FiO2 40.0 Sodium Potassium Chloride Carbon Dioxide Anion Gap BUN Creatinine Est GFR ( Amer) Est GFR (Non-Af Amer) Random Glucose Calcium Total Bilirubin AST ALT Alkaline Phosphatase Total Protein Albumin Globulin Albumin/Globulin Ratio Pleural Total Protein <3.0 Pleural LDH 199 Pleural Glucose 129 04/27/17 04/27/17 04/27/17 05:40 05:40 05:40 WBC 16.3 H RBC 3.54 Hgb 11.3 L Hct 33.4 L MCV 94.4 MCH 31.9 MCHC 33.8 RDW 14.7 H Plt Count 163 MPV 9.8 Gran % 85.5 H Lymph % (Auto) 8.1 L [place] % (Auto) 6.3 H Eos % (Auto) 0.0 L Baso % (Auto) 0.1 Gran # 13.95 H Lymph # 1.3 [place] # 1.0 H Eos # 0.0 Baso # 0.02 PT 21.4 H INR 1.92 H APTT 34.1 pCO2 pO2 HCO3 ABG pH ABG Total CO2 ABG O2 Saturation ABG O2 Content ABG Base Excess ABG Hemoglobin ABG Carboxyhemoglobin POC ABG HHb (Measured) ABG Methemoglobin ABG O2 Capacity Hgb O2 Saturation FiO2 Sodium 146 Potassium 3.8 Chloride 117 H Carbon Dioxide 22 Anion Gap 11 BUN 46 H Creatinine 0.9 Est GFR ( Amer) > 60 Est GFR (Non-Af Amer) > 60 Random Glucose 186 H Calcium 8.1 L Total Bilirubin 1.6 H AST 46 ALT 42 Alkaline Phosphatase 128 H Total Protein 4.8 L Albumin 1.9 L Globulin 2.9 Albumin/Globulin Ratio 0.7 L Pleural Total Protein Pleural LDH Pleural Glucose Assessment/Plan - Assessment and Plan (Free Text) Plan: Patient seen and examined, on rounds with resident, agree with note, with following additions/exceptions: Patient is 76yo male a/w septic shock, 2/2 PNA/Empyema, s/p thoracentesis and Chest tube drainage with large bore CT placed by surgery. Pt is HD stable on levophed, Vasopressin, Stress dose steroids, with good UOP. CT drainage noted, Surgery following. CT drainage decreasing. Patient's pressor requirements significantly decreasing. Spoke to pharmacy, Dornase-saravanan not available at the moment. Septic Shock Empyema/Pleural Effusion PNA Hypothyroidism Recommend - cont with ventilatory support, low tidal vol ventilation - antibiotics as per ID - follow up cultures, procalcitonin - would start on IVF, bedside U/S of IVC 1.26cm - cont with vasopressor support, stress dose steroids, goal MAP 65 - monitor HH - monitor FS - follow up CT Surgery, will likely need a VATS at some point - MVT, Thiamine, Folic Acid - GI ppx - DVT ppx Family notified and updated of events Patient remains high risk for moribidity and mortality Critical care time 40 minutes
[2017-04-27] MEDS: Chlorhexidine 0.12% Oral Sol 480 ml Bot PO SCH (10:32)
--- NOTE | 2017-04-27 10:35 | CP.PCM.PN ---
Subjective - Date & Time of Evaluation Date of Evaluation: 04/27/17 Time of Evaluation: 10:20 - Subjective Subjective: Continues to be on the ventilator, less vasopressor doses, wakes up a little more compared to yesterday, no fevers overnight. Objective - Vital Signs/Intake and Output Vital Signs (last 24 hours): Temp Pulse Resp BP Pulse Ox 97.5 F L 66 20 128/71 100 04/27/17 04:00 04/27/17 06:10 04/26/17 14:40 04/27/17 06:10 04/27/17 06:10 Intake and Output: 04/27/17 04/27/17 06:59 18:59 Intake Total Output Total Balance - Medications Medications: Current Medications Acetaminophen (Tylenol 325mg Tab) 650 mg PO Q6H PRN PRN Reason: Fever >100.4 F Albuterol/Ipratropium (Duoneb 3 Mg/0.5 Mg (3 Ml) Ud) 3 ml IH [id number] [facility] Last Admin: 04/27/17 01:40 EDT Dose: 3 ml Albuterol/Ipratropium (Duoneb 3 Mg/0.5 Mg (3 Ml) Ud) 3 ml IH Q2H PRN PRN Reason: Shortness of Breath Last Admin: 04/24/17 23:34 Dose: 3 ml Albuterol/Ipratropium (Duoneb 3 Mg/0.5 Mg (3 Ml) Ud) 3 ml IH Q2H PRN PRN Reason: Shortness of Breath Last Admin: 04/25/17 00:30 Dose: 3 ml Chlorhexidine Gluconate (Peridex) 15 ml PO BID [facility] Last Admin: 04/26/17 17:00 Dose: 15 ml Guaifenesin/Dextromethorphan (Robitussin Dm) 5 ml PO Q6H PRN PRN Reason: Cough Heparin Sodium (Porcine) (Heparin) 5,000 units SC Q12 [facility] PRN Reason: Protocol Last Admin: 04/26/17 21:11 Dose: 5,000 units Hydrocortisone Sodium Succinate (Solu-Cortef) 50 mg IVP Q6H [facility] Last Admin: 04/27/17 06:25 Dose: 50 mg Azithromycin (Zithromax 500mg In Ns) 500 mg in 250 mls @ 167 mls/hr IVPB DAILY [facility] PRN Reason: Protocol Last Admin: 04/26/17 09:37 Dose: 167 mls/hr Meropenem 1 gm/ Dextrose 100 mls @ 100 mls/hr IVPB Q12H [facility] PRN Reason: Protocol Stop: 05/03/17 06:31 Last Admin: 04/27/17 05:48 Dose: 100 mls/hr Fentanyl Citrate (Fentanyl Citrate/Sodium Chloride 1 Mg/100 Ml) 1,000 mcg in 100 mls @ 2 mls/hr IV .Q24H PRN; Protocol; 20 MCG/HR PRN Reason: TITRATE PER MD ORDER Last Admin: 04/27/17 05:34 Dose: 15 mcg/hr, 1.5 mls/hr Vasopressin 20 units/ Dextrose 101 mls @ 9.09 mls/hr IV .Q11H7M [facility]; 0.03 U/MIN PRN Reason: Protocol Last Admin: 04/27/17 00:42 Dose: 9.09 mls/hr Vancomycin HCl (Vancomycin 1gm) 1 gm in 250 mls @ 167 mls/hr IVPB Q12H [facility] PRN Reason: Protocol Last Admin: 04/27/17 03:57 Dose: 167 mls/hr Norepinephrine Bitartrate 8 mg (/ Sodium Chloride) 258 mls @ 7.74 mls/hr IV .Q24H PRN; Protocol; 4 MCG/MIN PRN Reason: TITRATE PER PROTOCOL Last Admin: 04/27/17 05:50 Dose: 6 mcg/min, 11.61 mls/hr Lactated Ringer's (Lactated Ringer's) 1,000 mls @ 999 mls/hr IV .Q1H1M [facility] Last Admin: 04/26/17 18:00 Dose: 999 mls/hr Midazolam HCl (Versed Inj) 1 mg IVP Q2 PRN PRN Reason: Agitation Last Admin: 04/27/17 04:50 Dose: 1 mg Multivitamins/Minerals (Therapeutic-M Tab) 1 tab PO 0800 [facility] Last Admin: 04/26/17 12:55 Dose: 1 tab Ondansetron HCl (Zofran Inj) 4 mg IVP Q6H PRN PRN Reason: Nausea/Vomiting Pantoprazole Sodium (Protonix Inj) 40 mg IVP DAILY [facility] Last Admin: 04/26/17 09:38 Dose: 40 mg - Labs Labs: 04/27/17 05:40 04/27/17 05:40 PT 21.4 SECONDS (9.4-12.5) H 04/27/17 05:40 INR 1.92 (0.93-1.08) H 04/27/17 05:40 APTT 34.1 Seconds (25.1-36.5) 04/27/17 05:40 - Constitutional Appears: Other (intubated and sedated) - Head Exam Head Exam: NORMAL INSPECTION - ENT Exam Additional comments: ET tube in place - Neck Exam Additional comments: right IJ central venous catheter in place - Respiratory Exam Respiratory Exam: Decreased Breath Sounds (especially on the left side; left sided chest tube in place) - Cardiovascular Exam Cardiovascular Exam: +S1, +S2 - GI/Abdominal Exam GI & Abdominal Exam: Soft. absent: Tenderness Assessment and Plan - Assessment and Plan (Free Text) Plan: Assessment Severe sepsis / septic shock with ventilator dependent respiratory failure due to left sided severe community-acquired aspiration pneumonia with left sided pleural effusion S/P thoracentesis and now S/P chest tube placement POD #2, slowly improving history of alcohol abuse hypothyroidism cataracts S/P left eye surgery HTN dementia Plan continue Merrem and Zithromax day 4 pending final blood cx and pleural fluid cx results; will continue monitor chest tube output (starting to decrease) awaiting cardiothoracic surgery evaluation and plans for possible VATS will continue to monitor clinically
[2017-04-27] MEDS ORDERED: Lactated Ringer's 1,000 ML IV SCH (11:30)
--- NOTE | 2017-04-27 13:52 | PN ---
DATE: SUBJECTIVE: The patient is a 76-year-old male seen and examined, remain intubated, and sedated. His chest tube has been draining serosanguinous fluid. He is off of epinephrine, still on pressor. PHYSICAL EXAMINATION: VITAL SIGNS: He is afebrile, pulse is 58, respirations are 18, and blood pressure is 93/54. LUNGS: Bilateral fair airflow in the upper lung region, decreased in the left lower lung area. HEART: S1 and S2 audible. ABDOMEN: Soft and nontender. There is endotracheal tube in place. LABORATORY DATA: WBC of 16.3, hemoglobin of 11.3, hematocrit of 33.4, and platelets of 163. PT of 21.4 and INR of 1.92. Chemistries: Sodium of 146, potassium of 3.8, chloride of 117. BUN of 46, and creatinine of 0.9. Blood sugar of 186. Alkaline phosphatase is 128. His blood culture, urine culture and fungal cultures are pending. His sputum cultures are pending. Pleural fluid shows no anaerobic growth. ASSESSMENT: 1. Left lower lobe mass. 2. Left empyema status post chest tube placement. 3. Respiratory failure. 4. Hepatic failure with coagulopathy. 5. Hypotension on pressor. PLAN: We will continue the patient on nebulizer treatment. He is on vent support. He is on DVT prophylaxis. He is getting meropenem and vancomycin. Discussed with family member, who is at the bedside. We will reevaluate. Tony Ochoa MD
[2017-04-28] MEDS: Midazolam 2 MG/2 ML VIAL IVP PRN ×7 (00:39→21:02)
[2017-04-28] MEDS: Albuterol-Ipratrop 3 mg / 0.5 (3 ml) UD IH SCH ×4 (01:58→20:36)
[2017-04-28] MEDS: Fentanyl 1000mcg/100ml NS 1,000 MCG/100 ML BAG IV PRN ×5 (02:05→23:19)
[2017-04-28] MEDS: Vancomycin 1gm in NS 250ml 1 GM/250 ML BAG IVPB SCH ×2 (04:44→18:29)
[2017-04-28] MEDS: Meropenem 1 GM in Dextrose 5% In Water 100 ML IVPB SCH ×3 (05:02→21:04)
[2017-04-28 05:54] LABS: ARTERIAL BLOOD GAS HCO3 21.1 mmol/L (21-28); ARTERIAL BLOOD GAS O2 CAPACITY 13.9 mL/dl (16-24); ARTERIAL BLOOD GAS O2 CONTENT 13.7 ML/dl (15-23); ARTERIAL BLOOD GAS PH 7.27 (7.35-7.45); ARTERIAL BLOOD HGB O2 SAT 95.5 % (95.0-98.0); CARBOXYHEMOGLOBIN 1.5 % (0.5-1.5); HHB 1.7 % (0-5); METHEMOGLOBIN 1.3 % (0.0-3.0)
[2017-04-28 06:19] LABS: BASO # 0.01 K/mm3 (0.0-2.0); BASO % 0.1 % (0.0-3.0); GRAN # 8.77 (1.4-6.5); GRAN % 86.1 % (50.0-68.0); HEMATOCRIT 28.7 % (42.0-52.0); LYMPH # 0.8 (1.2-3.4); LYMPH % 7.8 % (22.0-35.0); MEAN CELL VOLUME 95.3 fl (80.0-105.0); MEAN CORPUSCULAR HEMOGLOBIN 31.6 pg (25.0-35.0); MEAN CORPUSCULAR HGB CONC 33.1 g/dl (31.0-37.0); MEAN PLATELET VOLUME 9.7 fl (7.0-11.0); MONO # 0.6 (0.1-0.6); WHITE BLOOD COUNT 10.2 10^3/ul (4.5-11.0)
[2017-04-28 06:32] LABS: INR 1.81 (0.93-1.08); PARTIAL THROMBOPLASTIN TIME 40.8 Seconds (25.1-36.5)
[2017-04-28 06:35] LABS: ALKALINE PHOSPHATASE 92 U/L (38-126); ALT/SGPT 31 U/L (7-56); AST/SGOT 33 U/L (17-59); BILIRUBIN,TOTAL 1.4 mg/dL (0.2-1.3); BLOOD UREA NITROGEN 42 mg/dL (7-21); CALCIUM 8.5 mg/dL (8.4-10.5); CARBON DIOXIDE 22 mmol/L (21-33); CHLORIDE 116 mmol/L (98-107); GFR AFRICAN-AMERICAN > 60; GLUCOSE,RANDOM 165 mg/dL (70-110); POTASSIUM 3.8 mmol/L (3.6-5.0); SODIUM 146 mmol/L (132-148); TOTAL PROTEIN 5.1 g/dL (5.8-8.3)
--- NOTE | 2017-04-28 07:18 | CP.CCUPN ---
<Tawanda Arora - Last Filed: 04/28/17 10:32> CCU Subjective - Physician Review Subjective (Free Text): Patient seen and examined at bedside. No acute events overnight. Resting comfortably in bed. Intubated and sedated. Opens eyes and moves extremities spontaneously. ROS cannot be attained due to altered mental status. 04/28/17 07:15 CCU Objective - Vital Signs / Intake & Output Vital Signs (Last 4 hours): Vital Signs Temp Pulse BP 04/28/17 06:12 70 104/58 L 04/28/17 04:00 97.9 F 04/28/17 03:26 68 132/66 Intake and Output (Last 8hrs): Intake & Output 04/27/17 04/28/17 04/28/17 22:59 06:59 14:59 Intake Total 3319 2685 Output Total 450 250 Balance 2869 2435 Intake: IV 2179 2325 ANTIBIOTIC 600 2165 Right Internal Jugular 1110 VASOPRESSIN 108 Tube Feeding 340 360 Albumin 200 Other 600 Output: Chest Tube Drainage 200 50 Left Mid-Axillary Chest 200 50 Urine 250 200 Urethral (Yu) 250 200 Oral Regurgitation 0 Other: # Bowel Movements 0 - Physical Exam Head: Positive for: Atraumatic, Normocephalic Extroacular Muscles: Positive for: Other (senile archus) Conjunctiva: Positive for: Normal Mouth: Positive for: Moist Mucous Membranes, Other (OGT in place, ET tube in place with bite lock) Pharnyx: Negative for: ERYTHEMA, EXUDATE Nose (External): Positive for: Atraumatic Neck: Positive for: Trachea Midline. Negative for: Meningeal Signs Respiratory/Chest: Positive for: Good Air Exchange. Negative for: Respiratory Distress, Wheezes, Rales, Rhonchi Cardiovascular: Positive for: Normal S1, S2. Negative for: Murmurs, Rub, Gallop Abdomen: Positive for: Normal Bowel Sounds. Negative for: Tenderness, Distention Back: Negative for: CVA Tenderness Upper Extremity: Positive for: Normal Inspection. Negative for: Cyanosis, Edema , Tenderness Lower Extremity: Positive for: Normal Inspection. Negative for: Edema, CALF TENDERNESS Neurological: Positive for: Other (intubated and sedated) Skin: Positive for: Warm, Dry Psychiatric: Positive for: Other (intubated and sedated) - Medications Active Medications: Active Medications Generic Name Dose Route Start Last Admin Trade Name Freq PRN Reason Stop Dose Admin Acetaminophen 650 mg 04/23/17 16:13 Tylenol 325mg Tab PO Q6H PRN Fever >100.4 F Albuterol/Ipratropium 3 ml 04/23/17 20:00 04/28/17 01:58 Duoneb 3 Mg/0.5 Mg (3 Ml) Ud IH 3 ml [id number] CEM Administration Albuterol/Ipratropium 3 ml 04/23/17 16:13 04/24/17 23:34 Duoneb 3 Mg/0.5 Mg (3 Ml) Ud IH 3 ml Q2H PRN Administration Shortness of Breath Albuterol/Ipratropium 3 ml 04/25/17 00:07 04/25/17 00:30 Duoneb 3 Mg/0.5 Mg (3 Ml) Ud IH 3 ml Q2H PRN Administration Shortness of Breath Chlorhexidine Gluconate 15 ml 04/26/17 18:00 04/27/17 10:32 Peridex PO 15 ml BID CEM Administration Folic Acid 1 mg 04/27/17 12:00 04/27/17 13:37 Folic Acid PO 1 mg DAILY CEM Administration Guaifenesin/Dextromethorphan 5 ml 04/24/17 19:29 Robitussin Dm PO Q6H PRN Cough Heparin Sodium (Porcine) 5,000 units 04/26/17 11:45 04/27/17 21:11 Heparin SC 5,000 units Q12 CEM Administration Protocol Hydrocortisone Sodium Succinate 50 mg 04/25/17 13:00 04/28/17 06:26 Solu-Cortef IVP 50 mg Q6H CEM Administration Azithromycin 500 mg in 250 mls @ 167 mls/hr 04/24/17 10:00 04/27/17 09:02 Zithromax 500mg In Ns IVPB 167 mls/hr DAILY CEM Administration Protocol Fentanyl Citrate 1,000 mcg in 100 mls @ 2 mls/hr 04/25/17 12:01 04/28/17 02: 05 Fentanyl Citrate/Sodium Chloride 1 Mg/100 Ml IV 200 mcg/hr .Q24H PRN 20 mls/hr TITRATE PER MD ORDER Administration Protocol 20 MCG/HR Vasopressin 20 units/ Dextrose 101 mls @ 9.09 mls/hr 04/25/17 13:00 04/27/17 22:50 IV 9.09 mls/hr .Q11H7M CEM Administration Protocol 0.03 U/MIN Vancomycin HCl 1 gm in 250 mls @ 167 mls/hr 04/25/17 16:30 04/28/17 04:44 Vancomycin 1gm IVPB 167 mls/hr Q12H CEM Administration Protocol Norepinephrine Bitartrate 8 mg 258 mls @ 7.74 mls/hr 04/25/17 22:48 04/28/17 04:51 / Sodium Chloride IV 4 mcg/min .Q24H PRN 7.74 mls/hr TITRATE PER PROTOCOL Administration Protocol 4 MCG/MIN Meropenem 1 gm/ Dextrose 100 mls @ 100 mls/hr 04/27/17 14:00 04/28/17 05:02 IVPB 05/06/17 14:01 100 mls/hr Q8 CEM Administration Protocol Potassium Chloride 20 meq/ 1,010 mls @ 100 mls/hr 04/27/17 16:45 04/28/17 04: 42 Sodium Chloride IV 100 mls/hr .Q10H6M CEM Administration Midazolam HCl 1 mg 04/25/17 12:08 04/28/17 05:22 Versed Inj IVP 1 mg Q2 PRN Administration Agitation Multivitamins/Minerals 1 tab 04/26/17 12:00 04/27/17 08:26 Therapeutic-M Tab PO 1 tab 0800 CEM Administration Ondansetron HCl 4 mg 04/23/17 16:13 Zofran Inj IVP Q6H PRN Nausea/Vomiting Pantoprazole Sodium 40 mg 04/23/17 16:15 04/27/17 09:03 Protonix Inj IVP 40 mg DAILY CEM Administration - Patient Studies Lab Studies: Microbiology Studies 04/24/17 17:20 Gram Stain - Final Pleural Fluid Anaerobic Culture - Final NO ANAEROBES ISOLATED. Body Fluid Culture - Preliminary NO GROWTH AFTER 3 DAYS 04/25/17 12:40 Gram Stain - Final Sputum Sputum Culture - Final Yeast Species Lab Studies 04/28/17 04/28/17 04/28/17 Range/Units 06:13 06:13 06:13 WBC 10.2 D (4.5-11.0) 10^3/ul RBC 3.01 L (3.5-6.1) 10^6/uL Hgb 9.5 L (14.0-18.0) g/dL Hct 28.7 L (42.0-52.0) % MCV 95.3 (80.0-105.0) fl MCH 31.6 (25.0-35.0) pg MCHC 33.1 (31.0-37.0) g/dl RDW 15.0 H (11.5-14.5) % Plt Count 121 (120.0-450.0) 10^3/uL MPV 9.7 (7.0-11.0) fl Gran % 86.1 H (50.0-68.0) % Lymph % (Auto) 7.8 L (22.0-35.0) % Evans % (Auto) 6.0 (1.0-6.0) % Eos % (Auto) 0.0 L (1.5-5.0) % Baso % (Auto) 0.1 (0.0-3.0) % Gran # 8.77 H (1.4-6.5) Lymph # 0.8 L (1.2-3.4) Evans # 0.6 (0.1-0.6) Eos # 0.0 (0.0-0.7) Baso # 0.01 (0.0-2.0) K/mm3 PT 20.1 H (9.4-12.5) SECONDS INR 1.81 H (0.93-1.08) APTT 40.8 H (25.1-36.5) Seconds pCO2 (35-45) mm/Hg pO2 (80-100) mm/Hg HCO3 (21-28) mmol/L ABG pH (7.35-7.45) ABG Total CO2 (22-28) mmol.L ABG O2 Saturation (95-98) % ABG O2 Content (15-23) ML/dl ABG Base Excess (-2.0-3.0) mmol/L ABG Hemoglobin (11.7-17.4) g/dL ABG Carboxyhemoglobin (0.5-1.5) % POC ABG HHb (Measured) (0-5) % ABG Methemoglobin (0.0-3.0) % ABG O2 Capacity (16-24) mL/dl Hgb O2 Saturation (95.0-98.0) % FiO2 % Sodium 146 (132-148) mmol/L Potassium 3.8 (3.6-5.0) mmol/L Chloride 116 H (98-107) mmol/L Carbon Dioxide 22 (21-33) mmol/L Anion Gap 12 (10-20) BUN 42 H (7-21) mg/dL Creatinine 0.8 (0.8-1.5) mg/dL Est GFR ( Amer) > 60 Est GFR (Non-Af Amer) > 60 Random Glucose 165 H (70-110) mg/dL Calcium 8.5 (8.4-10.5) mg/dL Total Bilirubin 1.4 H (0.2-1.3) mg/dL AST 33 (17-59) U/L ALT 31 (7-56) U/L Alkaline Phosphatase 92 (38-126) U/L Total Protein 5.1 L (5.8-8.3) g/dL Albumin 2.6 L (3.0-4.8) g/dL Globulin 2.6 gm/dL Albumin/Globulin Ratio 1.0 L (1.1-1.8) 04/28/17 Range/Units 05:30 WBC (4.5-11.0) 10^3/ul RBC (3.5-6.1) 10^6/uL Hgb (14.0-18.0) g/dL Hct (42.0-52.0) % MCV (80.0-105.0) fl MCH (25.0-35.0) pg MCHC (31.0-37.0) g/dl RDW (11.5-14.5) % Plt Count (120.0-450.0) 10^3/uL MPV (7.0-11.0) fl Gran % (50.0-68.0) % Lymph % (Auto) (22.0-35.0) % Evans % (Auto) (1.0-6.0) % Eos % (Auto) (1.5-5.0) % Baso % (Auto) (0.0-3.0) % Gran # (1.4-6.5) Lymph # (1.2-3.4) Evans # (0.1-0.6) Eos # (0.0-0.7) Baso # (0.0-2.0) K/mm3 PT (9.4-12.5) SECONDS INR (0.93-1.08) APTT (25.1-36.5) Seconds pCO2 46 H (35-45) mm/Hg pO2 97.0 (80-100) mm/Hg HCO3 21.1 (21-28) mmol/L ABG pH 7.27 L (7.35-7.45) ABG Total CO2 22.5 (22-28) mmol.L ABG O2 Saturation 98.3 H (95-98) % ABG O2 Content 13.7 L (15-23) ML/dl ABG Base Excess -5.6 L (-2.0-3.0) mmol/L ABG Hemoglobin 10.1 L (11.7-17.4) g/dL ABG Carboxyhemoglobin 1.5 (0.5-1.5) % POC ABG HHb (Measured) 1.7 (0-5) % ABG Methemoglobin 1.3 (0.0-3.0) % ABG O2 Capacity 13.9 L (16-24) mL/dl Hgb O2 Saturation 95.5 (95.0-98.0) % FiO2 40.0 % Sodium (132-148) mmol/L Potassium (3.6-5.0) mmol/L Chloride (98-107) mmol/L Carbon Dioxide (21-33) mmol/L Anion Gap (10-20) BUN (7-21) mg/dL Creatinine (0.8-1.5) mg/dL Est GFR ( Amer) Est GFR (Non-Af Amer) Random Glucose (70-110) mg/dL Calcium (8.4-10.5) mg/dL Total Bilirubin (0.2-1.3) mg/dL AST (17-59) U/L ALT (7-56) U/L Alkaline Phosphatase (38-126) U/L Total Protein (5.8-8.3) g/dL Albumin (3.0-4.8) g/dL Globulin gm/dL Albumin/Globulin Ratio (1.1-1.8) Laboratory Results - last 24 hr 04/28/17 04/28/17 04/28/17 05:30 06:13 06:13 WBC 10.2 D RBC 3.01 L Hgb 9.5 L Hct 28.7 L MCV 95.3 MCH 31.6 MCHC 33.1 RDW 15.0 H Plt Count 121 MPV 9.7 Gran % 86.1 H Lymph % (Auto) 7.8 L Evans % (Auto) 6.0 Eos % (Auto) 0.0 L Baso % (Auto) 0.1 Gran # 8.77 H Lymph # 0.8 L Evans # 0.6 Eos # 0.0 Baso # 0.01 PT INR APTT pCO2 46 H pO2 97.0 HCO3 21.1 ABG pH 7.27 L ABG Total CO2 22.5 ABG O2 Saturation 98.3 H ABG O2 Content 13.7 L ABG Base Excess -5.6 L ABG Hemoglobin 10.1 L ABG Carboxyhemoglobin 1.5 POC ABG HHb (Measured) 1.7 ABG Methemoglobin 1.3 ABG O2 Capacity 13.9 L Hgb O2 Saturation 95.5 FiO2 40.0 Sodium 146 Potassium 3.8 Chloride 116 H Carbon Dioxide 22 Anion Gap 12 BUN 42 H Creatinine 0.8 Est GFR ( Amer) > 60 Est GFR (Non-Af Amer) > 60 Random Glucose 165 H Calcium 8.5 Total Bilirubin 1.4 H AST 33 ALT 31 Alkaline Phosphatase 92 Total Protein 5.1 L Albumin 2.6 L Globulin 2.6 Albumin/Globulin Ratio 1.0 L 04/28/17 06:13 WBC RBC Hgb Hct MCV MCH MCHC RDW Plt Count MPV Gran % Lymph % (Auto) Evans % (Auto) Eos % (Auto) Baso % (Auto) Gran # Lymph # Evans # Eos # Baso # PT 20.1 H INR 1.81 H APTT 40.8 H pCO2 pO2 HCO3 ABG pH ABG Total CO2 ABG O2 Saturation ABG O2 Content ABG Base Excess ABG Hemoglobin ABG Carboxyhemoglobin POC ABG HHb (Measured) ABG Methemoglobin ABG O2 Capacity Hgb O2 Saturation FiO2 Sodium Potassium Chloride Carbon Dioxide Anion Gap BUN Creatinine Est GFR ( Amer) Est GFR (Non-Af Amer) Random Glucose Calcium Total Bilirubin AST ALT Alkaline Phosphatase Total Protein Albumin Globulin Albumin/Globulin Ratio Fingerstick Blood Sugar Results: 46 Review of Systems - Review of Systems Review of Systems: ROS cannot be attained due to altered mental status Assessment/Plan - Assessment and Plan (Free Text) Assessment: Patient is a 76 year old male with past medical history of dementia, alcohol abuse and HTN who was admitted for evaluation and treatment of SOB. He was transferred to the ICU for worsening SOB and altered mentation. He was found to have extensive left hemithorax opacification. He is now s/p thoracentesis with turbid yellow fluid 1050ml removed and s/p chest tube insertion. Plan: Neurologic - History of dementia, currently intubated and sedated with fentanyl - Continue sedation with vacation daily Cardiovascular - Septic shock, c/w levo gtt 2 mcg and vasopressin, continue to wean, maintain MAP > 60 - Hemodynamically stable at this time Pulmonary - Large left sided pleural effusion with atelectasis on chest CT - Patient intubated for airway protection- ABG reviwed and apprecaite- retaining CO2 with associated acidemia- will adjust PRVC settings accordingly, currently at PRVC 400/18/5/40% - s/p thoracentesis with 1050ml yellow turbid fluid - Repeat CXR reviewed and appreciated - Cont duonebs q6h and q2h prn - Continue azithromycin D5, meropenem D5, and vancomycin D4 - Thoracentesis LDH elevated support exudate, pending cultures no growth x 3 days - Cont aspiration precautions - HOB >35 - Surgery consulted- appreciate recommendations- Chest tube placed previously s/ p 1200ml mostly yellow turbid fluid, now draining serosangenous fluid - CT surgery consulted for potential video-assisted thoracoscopic surgery GI - discontinued feeds due to potential VATS today - Hyperbiliruinemia downtrending, monitor closely - Protonix for prophylaxis Renal/ Electrolytes - Cont strict I&O - Sodium level plateaued- will monitor closely cont free water per OGT - Following closely ID - Septic shock likely from what appears to be a parapneumonic empyema on left chest - WBC trended, reviewed, and appreciated- downtrending - Given alcoholism history likely anaerobic aspiration PNA - As above cont azithro/merrem/vanco - ID Dr. Evans following, recs appreciated - Maintain euthermia Endo - Maintain euglycemia blood sugars between 140-180 Heme - hemoglobin trended, reviewed, and appreciated- decreasing Hgb likely 2/2 IVF - SCDs Patient seen, case reviewed, and plan approved by attending physician, Dr. Santana. <Jonathan Santana - Last Filed: 04/28/17 13:18> CCU Objective - Vital Signs / Intake & Output Vital Signs (Last 4 hours): Vital Signs Pulse BP Pulse Ox 04/28/17 11:38 75 98/57 L 98 04/28/17 11:33 82 04/28/17 11:32 78 04/28/17 11:31 80 04/28/17 11:30 80 95/66 L 88 L 04/28/17 11:20 72 99 04/28/17 11:15 72 91/53 L 99 04/28/17 11:10 70 99 04/28/17 11:00 68 98/58 L 99 04/28/17 10:50 68 99 04/28/17 10:45 69 98/55 L 99 04/28/17 10:40 77 98 04/28/17 10:30 71 101/58 L 100 04/28/17 10:20 73 99 04/28/17 10:15 70 98/56 L 100 04/28/17 10:10 73 100 04/28/17 10:00 75 99/52 L 99 04/28/17 09:50 75 100 04/28/17 09:45 73 107/64 100 04/28/17 09:40 76 100 04/28/17 09:30 77 92/53 L 98 04/28/17 09:27 78 04/28/17 09:26 79 04/28/17 09:25 82 04/28/17 09:24 76 04/28/17 09:23 75 Intake and Output (Last 8hrs): Intake & Output 04/27/17 04/28/17 04/28/17 22:59 06:59 14:59 Intake Total 3319 2685 100 Output Total 450 250 Balance 2869 2435 100 Intake: IV 2179 2325 100 ANTIBIOTIC 600 2165 Right Internal Jugular 1110 VASOPRESSIN 108 Tube Feeding 340 360 Albumin 200 Other 600 Output: Chest Tube Drainage 200 50 Left Mid-Axillary Chest 200 50 Urine 250 200 Urethral (Yu) 250 200 Oral Regurgitation 0 Other: # Bowel Movements 0 - Medications Active Medications: Active Medications Generic Name Dose Route Start Last Admin Trade Name Freq PRN Reason Stop Dose Admin Acetaminophen 650 mg 04/23/17 16:13 Tylenol 325mg Tab PO Q6H PRN Fever >100.4 F Albuterol/Ipratropium 3 ml 04/23/17 20:00 04/28/17 07:34 Duoneb 3 Mg/0.5 Mg (3 Ml) Ud IH 3 ml [id number] CEM Administration Albuterol/Ipratropium 3 ml 04/23/17 16:13 04/24/17 23:34 Duoneb 3 Mg/0.5 Mg (3 Ml) Ud IH 3 ml Q2H PRN Administration Shortness of Breath Albuterol/Ipratropium 3 ml 04/25/17 00:07 04/25/17 00:30 Duoneb 3 Mg/0.5 Mg (3 Ml) Ud IH 3 ml Q2H PRN Administration Shortness of Breath Chlorhexidine Gluconate 15 ml 04/26/17 18:00 04/28/17 09:24 Peridex PO 15 ml BID CEM Administration Folic Acid 1 mg 04/27/17 12:00 04/28/17 09:24 Folic Acid PO 1 mg DAILY CEM Administration Guaifenesin/Dextromethorphan 5 ml 04/24/17 19:29 Robitussin Dm PO Q6H PRN Cough Hydrocortisone Sodium Succinate 50 mg 04/25/17 13:00 04/28/17 06:26 Solu-Cortef IVP 50 mg Q6H CEM Administration Azithromycin 500 mg in 250 mls @ 167 mls/hr 04/24/17 10:00 04/28/17 09:19 Zithromax 500mg In Ns IVPB 167 mls/hr DAILY CEM Administration Protocol Fentanyl Citrate 1,000 mcg in 100 mls @ 2 mls/hr 04/25/17 12:01 04/28/17 07: 59 Fentanyl Citrate/Sodium Chloride 1 Mg/100 Ml IV 200 mcg/hr .Q24H PRN 20 mls/hr TITRATE PER MD ORDER Administration Protocol 20 MCG/HR Vasopressin 20 units/ Dextrose 101 mls @ 9.09 mls/hr 04/25/17 13:00 04/27/17 22:50 IV 9.09 mls/hr .Q11H7M CEM Administration Protocol 0.03 U/MIN Vancomycin HCl 1 gm in 250 mls @ 167 mls/hr 04/25/17 16:30 04/28/17 04:44 Vancomycin 1gm IVPB 167 mls/hr Q12H CEM Administration Protocol Norepinephrine Bitartrate 8 mg 258 mls @ 7.74 mls/hr 04/25/17 22:48 04/28/17 04:51 / Sodium Chloride IV 4 mcg/min .Q24H PRN 7.74 mls/hr TITRATE PER PROTOCOL Administration Protocol 4 MCG/MIN Meropenem 1 gm/ Dextrose 100 mls @ 100 mls/hr 04/27/17 14:00 04/28/17 05:02 IVPB 05/06/17 14:01 100 mls/hr Q8 CEM Administration Protocol Potassium Chloride 20 meq/ 1,010 mls @ 100 mls/hr 04/27/17 16:45 04/28/17 04: 42 Sodium Chloride IV 100 mls/hr .Q10H6M CEM Administration Midazolam HCl 1 mg 04/25/17 12:08 04/28/17 08:02 Versed Inj IVP 1 mg Q2 PRN Administration Agitation Multivitamins/Minerals 1 tab 04/26/17 12:00 04/28/17 09:24 Therapeutic-M Tab PO 1 tab 0800 CEM Administration Ondansetron HCl 4 mg 04/23/17 16:13 Zofran Inj IVP Q6H PRN Nausea/Vomiting Pantoprazole Sodium 40 mg 04/23/17 16:15 04/28/17 09:23 Protonix Inj IVP 40 mg DAILY CEM Administration - Patient Studies Lab Studies: Microbiology Studies 04/24/17 17:20 Gram Stain - Final Pleural Fluid Anaerobic Culture - Final NO ANAEROBES ISOLATED. Body Fluid Culture - Final No growth. 04/25/17 12:40 Gram Stain - Final Sputum Sputum Culture - Final Yeast Species Lab Studies 04/28/17 04/28/17 04/28/17 Range/Units 06:13 06:13 06:13 WBC 10.2 D (4.5-11.0) 10^3/ul RBC 3.01 L (3.5-6.1) 10^6/uL Hgb 9.5 L (14.0-18.0) g/dL Hct 28.7 L (42.0-52.0) % MCV 95.3 (80.0-105.0) fl MCH 31.6 (25.0-35.0) pg MCHC 33.1 (31.0-37.0) g/dl RDW 15.0 H (11.5-14.5) % Plt Count 121 (120.0-450.0) 10^3/uL MPV 9.7 (7.0-11.0) fl Gran % 86.1 H (50.0-68.0) % Lymph % (Auto) 7.8 L (22.0-35.0) % Evans % (Auto) 6.0 (1.0-6.0) % Eos % (Auto) 0.0 L (1.5-5.0) % Baso % (Auto) 0.1 (0.0-3.0) % Gran # 8.77 H (1.4-6.5) Lymph # 0.8 L (1.2-3.4) Evans # 0.6 (0.1-0.6) Eos # 0.0 (0.0-0.7) Baso # 0.01 (0.0-2.0) K/mm3 PT 20.1 H (9.4-12.5) SECONDS INR 1.81 H (0.93-1.08) APTT 40.8 H (25.1-36.5) Seconds pCO2 (35-45) mm/Hg pO2 (80-100) mm/Hg HCO3 (21-28) mmol/L ABG pH (7.35-7.45) ABG Total CO2 (22-28) mmol.L ABG O2 Saturation (95-98) % ABG O2 Content (15-23) ML/dl ABG Base Excess (-2.0-3.0) mmol/L ABG Hemoglobin (11.7-17.4) g/dL ABG Carboxyhemoglobin (0.5-1.5) % POC ABG HHb (Measured) (0-5) % ABG Methemoglobin (0.0-3.0) % ABG O2 Capacity (16-24) mL/dl Hgb O2 Saturation (95.0-98.0) % FiO2 % Sodium 146 (132-148) mmol/L Potassium 3.8 (3.6-5.0) mmol/L Chloride 116 H (98-107) mmol/L Carbon Dioxide 22 (21-33) mmol/L Anion Gap 12 (10-20) BUN 42 H (7-21) mg/dL Creatinine 0.8 (0.8-1.5) mg/dL Est GFR ( Amer) > 60 Est GFR (Non-Af Amer) > 60 Random Glucose 165 H (70-110) mg/dL Calcium 8.5 (8.4-10.5) mg/dL Total Bilirubin 1.4 H (0.2-1.3) mg/dL AST 33 (17-59) U/L ALT 31 (7-56) U/L Alkaline Phosphatase 92 (38-126) U/L Total Protein 5.1 L (5.8-8.3) g/dL Albumin 2.6 L (3.0-4.8) g/dL Globulin 2.6 gm/dL Albumin/Globulin Ratio 1.0 L (1.1-1.8) Fluid Source Fluid Appearance Fluid WBC Fluid RBC Fluid Tot Cell Count Fluid Neutrophils Fluid Lymphocytes Fld Monocyte/Macrophag Fluid Comment 04/28/17 04/27/17 Range/Units 05:30 17:36 WBC (4.5-11.0) 10^3/ul RBC (3.5-6.1) 10^6/uL Hgb (14.0-18.0) g/dL Hct (42.0-52.0) % MCV (80.0-105.0) fl MCH (25.0-35.0) pg MCHC (31.0-37.0) g/dl RDW (11.5-14.5) % Plt Count (120.0-450.0) 10^3/uL MPV (7.0-11.0) fl Gran % (50.0-68.0) % Lymph % (Auto) (22.0-35.0) % Evans % (Auto) (1.0-6.0) % Eos % (Auto) (1.5-5.0) % Baso % (Auto) (0.0-3.0) % Gran # (1.4-6.5) Lymph # (1.2-3.4) Evans # (0.1-0.6) Eos # (0.0-0.7) Baso # (0.0-2.0) K/mm3 PT (9.4-12.5) SECONDS INR (0.93-1.08) APTT (25.1-36.5) Seconds pCO2 46 H (35-45) mm/Hg pO2 97.0 (80-100) mm/Hg HCO3 21.1 (21-28) mmol/L ABG pH 7.27 L (7.35-7.45) ABG Total CO2 22.5 (22-28) mmol.L ABG O2 Saturation 98.3 H (95-98) % ABG O2 Content 13.7 L (15-23) ML/dl ABG Base Excess -5.6 L (-2.0-3.0) mmol/L ABG Hemoglobin 10.1 L (11.7-17.4) g/dL ABG Carboxyhemoglobin 1.5 (0.5-1.5) % POC ABG HHb (Measured) 1.7 (0-5) % ABG Methemoglobin 1.3 (0.0-3.0) % ABG O2 Capacity 13.9 L (16-24) mL/dl Hgb O2 Saturation 95.5 (95.0-98.0) % FiO2 40.0 % Sodium (132-148) mmol/L Potassium (3.6-5.0) mmol/L Chloride (98-107) mmol/L Carbon Dioxide (21-33) mmol/L Anion Gap (10-20) BUN (7-21) mg/dL Creatinine (0.8-1.5) mg/dL Est GFR ( Amer) Est GFR (Non-Af Amer) Random Glucose (70-110) mg/dL Calcium (8.4-10.5) mg/dL Total Bilirubin (0.2-1.3) mg/dL AST (17-59) U/L ALT (7-56) U/L Alkaline Phosphatase (38-126) U/L Total Protein (5.8-8.3) g/dL Albumin (3.0-4.8) g/dL Globulin gm/dL Albumin/Globulin Ratio (1.1-1.8) Fluid Source Cancelled Fluid Appearance Cancelled Fluid WBC Cancelled Fluid RBC Cancelled Fluid Tot Cell Count Cancelled Fluid Neutrophils Cancelled Fluid Lymphocytes Cancelled Fld Monocyte/Macrophag Cancelled Fluid Comment Cancelled Laboratory Results - last 24 hr 04/27/17 04/28/17 04/28/17 17:36 05:30 06:13 WBC 10.2 D RBC 3.01 L Hgb 9.5 L Hct 28.7 L MCV 95.3 MCH 31.6 MCHC 33.1 RDW 15.0 H Plt Count 121 MPV 9.7 Gran % 86.1 H Lymph % (Auto) 7.8 L Evans % (Auto) 6.0 Eos % (Auto) 0.0 L Baso % (Auto) 0.1 Gran # 8.77 H Lymph # 0.8 L Evans # 0.6 Eos # 0.0 Baso # 0.01 PT INR APTT pCO2 46 H pO2 97.0 HCO3 21.1 ABG pH 7.27 L ABG Total CO2 22.5 ABG O2 Saturation 98.3 H ABG O2 Content 13.7 L ABG Base Excess -5.6 L ABG Hemoglobin 10.1 L ABG Carboxyhemoglobin 1.5 POC ABG HHb (Measured) 1.7 ABG Methemoglobin 1.3 ABG O2 Capacity 13.9 L Hgb O2 Saturation 95.5 FiO2 40.0 Sodium Potassium Chloride Carbon Dioxide Anion Gap BUN Creatinine Est GFR ( Amer) Est GFR (Non-Af Amer) Random Glucose Calcium Total Bilirubin AST ALT Alkaline Phosphatase Total Protein Albumin Globulin Albumin/Globulin Ratio Fluid Source Cancelled Fluid Appearance Cancelled Fluid WBC Cancelled Fluid RBC Cancelled Fluid Tot Cell Count Cancelled Fluid Neutrophils Cancelled Fluid Lymphocytes Cancelled Fld Monocyte/Macrophag Cancelled Fluid Comment Cancelled 04/28/17 04/28/17 06:13 06:13 WBC RBC Hgb Hct MCV MCH MCHC RDW Plt Count MPV Gran % Lymph % (Auto) Evans % (Auto) Eos % (Auto) Baso % (Auto) Gran # Lymph # Evans # Eos # Baso # PT 20.1 H INR 1.81 H APTT 40.8 H pCO2 pO2 HCO3 ABG pH ABG Total CO2 ABG O2 Saturation ABG O2 Content ABG Base Excess ABG Hemoglobin ABG Carboxyhemoglobin POC ABG HHb (Measured) ABG Methemoglobin ABG O2 Capacity Hgb O2 Saturation FiO2 Sodium 146 Potassium 3.8 Chloride 116 H Carbon Dioxide 22 Anion Gap 12 BUN 42 H Creatinine 0.8 Est GFR ( Amer) > 60 Est GFR (Non-Af Amer) > 60 Random Glucose 165 H Calcium 8.5 Total Bilirubin 1.4 H AST 33 ALT 31 Alkaline Phosphatase 92 Total Protein 5.1 L Albumin 2.6 L Globulin 2.6 Albumin/Globulin Ratio 1.0 L Fluid Source Fluid Appearance Fluid WBC Fluid RBC Fluid Tot Cell Count Fluid Neutrophils Fluid Lymphocytes Fld Monocyte/Macrophag Fluid Comment Assessment/Plan - Assessment and Plan (Free Text) Plan: Patient seen and examined, on rounds with resident, agree with note, with following additions/exceptions: Patient is 76yo male a/w septic shock, 2/2 PNA/Empyema, s/p thoracentesis and Chest tube drainage with large bore CT placed by surgery. Pt is HD stable on levophed, Vasopressin, Stress dose steroids, with good UOP. CT drainage noted, Surgery following. CT drainage decreasing. Patient's pressor requirements significantly decreasing, currently Levophed 2mcg/min. Spoke to pharmacy, Dornase-saravanan not available at the moment. Spoke to IR Dr Warren, patient will likely not benefit from another pigtail CT. Seen by CT surgery today. Septic Shock Empyema/Pleural Effusion PNA Hypothyroidism Recommend - cont with ventilatory support, low tidal vol ventilation - antibiotics as per ID - follow up cultures, procalcitonin - IVF - cont with vasopressor support, stress dose steroids, goal MAP 65, titrate off Levophed - monitor HH - monitor FS - follow up CT Surgery - MVT, Thiamine, Folic Acid - GI ppx - DVT ppx Patient remains high risk for moribidity and mortality Critical care time 40 minutes
--- NOTE | 2017-04-28 08:09 | OP ---
PROCEDURE DATE: 04/25/2017 PROCEDURE: Thoracentesis. INDICATIONS: Septic shock, rule out empyema. DESCRIPTION OF PROCEDURE: After obtaining informed consent, best pocket of fluid identified on ultrasound. Maximum barrier precaution used. Catheter over needle inserted under ultrasound guidance to the largest buildup of the fluid. Purulent secretion in the amount of 1.4 L removed. Sterile dressings applied. Chest x-ray done. No pneumothorax after thoracentesis is identified. Surgical consult with Dr. Gamino requested and chest tube for pus drainage will be placed. Emerson Araujo MD
--- NOTE | 2017-04-28 08:57 | RAD ---
HISTORY: Left pleural effusion. Portable study 05:08. COMPARISON: Multiple serial chest x-ray examinations preceding the most recent study: April 26, 2017. CT thorax April 27, 2017. FINDINGS: LUNGS: Continued interval improvement in expansion of the left lung. PLEURA: Continued decrease in left pleural effusion. Chest tube remains in stable in satisfactory position in the left pleural space. CARDIOVASCULAR: No radiographic findings to suggest acute or significant cardiovascular disease. OSSEOUS STRUCTURES: No significant abnormalities. VISUALIZED UPPER ABDOMEN: Normal. OTHER FINDINGS: Stable, satisfactory position ventilatory, vascular and nasogastric apparatus. IMPRESSION: Decrease left pleural effusion. Commensurate re-expansion left lower lobe. Otherwise no interval change.
[2017-04-28] MEDS: Azithromycin 500MG/NS 250ml 500 MG/250 ML BAG IVPB SCH (09:19)
[2017-04-28] MEDS: Chlorhexidine 0.12% Oral Sol 480 ml Bot PO SCH ×2 (09:24→18:26)
[2017-04-28] MEDS: Multivitamin With Minerals Tab PO SCH (09:24)
--- NOTE | 2017-04-28 09:47 | CP.PCM.PN ---
Subjective - Date & Time of Evaluation Date of Evaluation: 04/28/17 Time of Evaluation: 09:20 - Subjective Subjective: Continues to be on the ventilator, less vasopressor support, no fevers overnight. Objective - Vital Signs/Intake and Output Vital Signs (last 24 hours): Temp Pulse Resp BP Pulse Ox 97.9 F 86 20 120/71 99 04/28/17 04:00 04/28/17 06:12 04/27/17 10:46 04/28/17 06:12 04/28/17 00:06 Intake and Output: 04/27/17 04/28/17 18:59 06:59 Intake Total 3283 2858 Output Total 450 250 Balance 2833 2608 - Medications Medications: Current Medications Acetaminophen (Tylenol 325mg Tab) 650 mg PO Q6H PRN PRN Reason: Fever >100.4 F Albuterol/Ipratropium (Duoneb 3 Mg/0.5 Mg (3 Ml) Ud) 3 ml IH [id number] Last Admin: 04/28/17 01:58 Dose: 3 ml Albuterol/Ipratropium (Duoneb 3 Mg/0.5 Mg (3 Ml) Ud) 3 ml IH Q2H PRN PRN Reason: Shortness of Breath Last Admin: 04/24/17 23:34 Dose: 3 ml Albuterol/Ipratropium (Duoneb 3 Mg/0.5 Mg (3 Ml) Ud) 3 ml IH Q2H PRN PRN Reason: Shortness of Breath Last Admin: 04/25/17 00:30 Dose: 3 ml Chlorhexidine Gluconate (Peridex) 15 ml PO BID [facility] Last Admin: 04/27/17 10:32 Dose: 15 ml Folic Acid (Folic Acid) 1 mg PO DAILY [facility] Last Admin: 04/27/17 13:37 Dose: 1 mg Guaifenesin/Dextromethorphan (Robitussin Dm) 5 ml PO Q6H PRN PRN Reason: Cough Heparin Sodium (Porcine) (Heparin) 5,000 units SC Q12 [facility] PRN Reason: Protocol Last Admin: 04/27/17 21:11 Dose: 5,000 units Hydrocortisone Sodium Succinate (Solu-Cortef) 50 mg IVP Q6H [facility] Last Admin: 04/28/17 00:33 Dose: 50 mg Azithromycin (Zithromax 500mg In Ns) 500 mg in 250 mls @ 167 mls/hr IVPB DAILY [facility] PRN Reason: Protocol Last Admin: 04/27/17 09:02 Dose: 167 mls/hr Fentanyl Citrate (Fentanyl Citrate/Sodium Chloride 1 Mg/100 Ml) 1,000 mcg in 100 mls @ 2 mls/hr IV .Q24H PRN; Protocol; 20 MCG/HR PRN Reason: TITRATE PER MD ORDER Last Admin: 04/28/17 02:05 Dose: 200 mcg/hr, 20 mls/hr Vasopressin 20 units/ Dextrose 101 mls @ 9.09 mls/hr IV .Q11H7M [facility]; 0.03 U/MIN PRN Reason: Protocol Last Admin: 04/27/17 22:50 Dose: 9.09 mls/hr Vancomycin HCl (Vancomycin 1gm) 1 gm in 250 mls @ 167 mls/hr IVPB Q12H [facility] PRN Reason: Protocol Last Admin: 04/28/17 04:44 Dose: 167 mls/hr Norepinephrine Bitartrate 8 mg (/ Sodium Chloride) 258 mls @ 7.74 mls/hr IV .Q24H PRN; Protocol; 4 MCG/MIN PRN Reason: TITRATE PER PROTOCOL Last Admin: 04/28/17 04:51 Dose: 4 mcg/min, 7.74 mls/hr Meropenem 1 gm/ Dextrose 100 mls @ 100 mls/hr IVPB Q8 [facility] PRN Reason: Protocol Stop: 05/06/17 14:01 Last Admin: 04/28/17 05:02 Dose: 100 mls/hr Potassium Chloride 20 meq/ (Sodium Chloride) 1,010 mls @ 100 mls/hr IV .Q10H6M [facility] Last Admin: 04/28/17 04:42 Dose: 100 mls/hr Midazolam HCl (Versed Inj) 1 mg IVP Q2 PRN PRN Reason: Agitation Last Admin: 04/28/17 05:22 Dose: 1 mg Multivitamins/Minerals (Therapeutic-M Tab) 1 tab PO 0800 [facility] Last Admin: 04/27/17 08:26 Dose: 1 tab Ondansetron HCl (Zofran Inj) 4 mg IVP Q6H PRN PRN Reason: Nausea/Vomiting Pantoprazole Sodium (Protonix Inj) 40 mg IVP DAILY [facility] Last Admin: 04/27/17 09:03 Dose: 40 mg - Labs Labs: 04/28/17 06:13 04/27/17 05:40 PT 21.4 SECONDS (9.4-12.5) H 04/27/17 05:40 INR 1.92 (0.93-1.08) H 04/27/17 05:40 APTT 34.1 Seconds (25.1-36.5) 04/27/17 05:40 - Constitutional Appears: Other (intubated and sedated) - ENT Exam Additional comments: ET tube in place - Neck Exam Neck Exam: absent: Meningismus Additional comments: right IJ CVC in place, intact, clean - Respiratory Exam Respiratory Exam: Decreased Breath Sounds, Rales (scattered) - Cardiovascular Exam Cardiovascular Exam: +S1, +S2 - GI/Abdominal Exam GI & Abdominal Exam: Soft. absent: Tenderness Assessment and Plan - Assessment and Plan (Free Text) Plan: Assessment Severe sepsis / septic shock with ventilator dependent respiratory failure due to left sided severe community-acquired aspiration pneumonia with left sided pleural effusion S/P thoracentesis and now S/P chest tube placement POD #3, slowly improving history of alcohol abuse hypothyroidism cataracts S/P left eye surgery HTN dementia Plan continue Vancomycin, Merrem and Zithromax day 5 pending final blood cx and pleural fluid cx results (which are negative so far); will continue monitor chest tube output (starting to decrease) awaiting cardiothoracic surgery evaluation and plans for possible VATS will continue to monitor clinically discussed with ICU team
--- NOTE | 2017-04-28 10:27 | CP.PCM.PN ---
Subjective - Date & Time of Evaluation Date of Evaluation: 04/28/17 Time of Evaluation: 10:23 - Subjective Subjective: Thoracic Surgery - Dr. He PT S&E. DENA. Pt remains intubated, sedated but withdraws to painful stimuli. On Vent w/ 5 Peep, 40 % Fio2. L CT to low continuous suction with 50cc serosanguinous drainage past 12hours. Urine output 200cc/12hrs. Objective - Vital Signs/Intake and Output Vital Signs (last 24 hours): Temp Pulse Resp BP Pulse Ox 97.9 F 86 18 120/71 100 04/28/17 04:00 04/28/17 06:12 04/28/17 07:34 04/28/17 06:12 04/28/17 07:34 Intake and Output: 04/28/17 04/28/17 06:59 18:59 Intake Total 2858 100 Output Total 250 Balance 2608 100 - Medications Medications: Current Medications Acetaminophen (Tylenol 325mg Tab) 650 mg PO Q6H PRN PRN Reason: Fever >100.4 F Albuterol/Ipratropium (Duoneb 3 Mg/0.5 Mg (3 Ml) Ud) 3 ml IH [id number] [facility] Last Admin: 04/28/17 07:34 Dose: 3 ml Albuterol/Ipratropium (Duoneb 3 Mg/0.5 Mg (3 Ml) Ud) 3 ml IH Q2H PRN PRN Reason: Shortness of Breath Last Admin: 04/24/17 23:34 Dose: 3 ml Albuterol/Ipratropium (Duoneb 3 Mg/0.5 Mg (3 Ml) Ud) 3 ml IH Q2H PRN PRN Reason: Shortness of Breath Last Admin: 04/25/17 00:30 Dose: 3 ml Chlorhexidine Gluconate (Peridex) 15 ml PO BID [facility] Last Admin: 04/28/17 09:24 Dose: 15 ml Folic Acid (Folic Acid) 1 mg PO DAILY [facility] Last Admin: 04/28/17 09:24 Dose: 1 mg Guaifenesin/Dextromethorphan (Robitussin Dm) 5 ml PO Q6H PRN PRN Reason: Cough Heparin Sodium (Porcine) (Heparin) 5,000 units SC Q12 [facility] PRN Reason: Protocol Last Admin: 04/28/17 09:21 Dose: 5,000 units Hydrocortisone Sodium Succinate (Solu-Cortef) 50 mg IVP Q6H [facility] Last Admin: 04/28/17 06:26 Dose: 50 mg Azithromycin (Zithromax 500mg In Ns) 500 mg in 250 mls @ 167 mls/hr IVPB DAILY [facility] PRN Reason: Protocol Last Admin: 04/28/17 09:19 Dose: 167 mls/hr Fentanyl Citrate (Fentanyl Citrate/Sodium Chloride 1 Mg/100 Ml) 1,000 mcg in 100 mls @ 2 mls/hr IV .Q24H PRN; Protocol; 20 MCG/HR PRN Reason: TITRATE PER MD ORDER Last Admin: 04/28/17 07:59 Dose: 200 mcg/hr, 20 mls/hr Vasopressin 20 units/ Dextrose 101 mls @ 9.09 mls/hr IV .Q11H7M [facility]; 0.03 U/MIN PRN Reason: Protocol Last Admin: 04/27/17 22:50 Dose: 9.09 mls/hr Vancomycin HCl (Vancomycin 1gm) 1 gm in 250 mls @ 167 mls/hr IVPB Q12H [facility] PRN Reason: Protocol Last Admin: 04/28/17 04:44 Dose: 167 mls/hr Norepinephrine Bitartrate 8 mg (/ Sodium Chloride) 258 mls @ 7.74 mls/hr IV .Q24H PRN; Protocol; 4 MCG/MIN PRN Reason: TITRATE PER PROTOCOL Last Admin: 04/28/17 04:51 Dose: 4 mcg/min, 7.74 mls/hr Meropenem 1 gm/ Dextrose 100 mls @ 100 mls/hr IVPB Q8 [facility] PRN Reason: Protocol Stop: 05/06/17 14:01 Last Admin: 04/28/17 05:02 Dose: 100 mls/hr Potassium Chloride 20 meq/ (Sodium Chloride) 1,010 mls @ 100 mls/hr IV .Q10H6M [facility] Last Admin: 04/28/17 04:42 Dose: 100 mls/hr Midazolam HCl (Versed Inj) 1 mg IVP Q2 PRN PRN Reason: Agitation Last Admin: 04/28/17 08:02 Dose: 1 mg Multivitamins/Minerals (Therapeutic-M Tab) 1 tab PO 0800 [facility] Last Admin: 04/28/17 09:24 Dose: 1 tab Ondansetron HCl (Zofran Inj) 4 mg IVP Q6H PRN PRN Reason: Nausea/Vomiting Pantoprazole Sodium (Protonix Inj) 40 mg IVP DAILY [facility] Last Admin: 04/28/17 09:23 Dose: 40 mg - Labs Labs: 04/28/17 06:13 04/28/17 06:13 PT 20.1 SECONDS (9.4-12.5) H 04/28/17 06:13 INR 1.81 (0.93-1.08) H 04/28/17 06:13 APTT 40.8 Seconds (25.1-36.5) H 04/28/17 06:13 - Constitutional Appears: No Acute Distress - Head Exam Head Exam: ATRAUMATIC, NORMAL INSPECTION, NORMOCEPHALIC - Eye Exam Eye Exam: Normal appearance - Respiratory Exam Respiratory Exam: NORMAL BREATHING PATTERN. absent: Respiratory Distress Additional comments: Intubated, on Vent - Neurological Exam Neurological Exam: Alert, Oriented x3 - Psychiatric Exam Psychiatric exam: Normal Affect, Normal Mood - Skin Skin Exam: Dry, Intact Assessment and Plan - Assessment and Plan (Free Text) Assessment: 76yo M with empyema s/p Left sided Chest Tube placement on 04/25 - Continue L CT to wall suction, monitor output - F/U Cx - Repeat CT Chest shows near complete resolution of the collection w/ small residual fluid/air - Continue Iv Abx - Daily CXR - Will likely need VATs in near future Will MARCELL Yee PGY3
[2017-04-28] MEDS: Vasopressin 20 UNITS in Dextrose 5% In Water 100 ML IV SCH ×2 (11:00→18:30)
[2017-04-28] MEDS ORDERED: Heparin25000 units/250ml 1/2NS 25,000 UNITS/250 ML BAG IV SCH (15:15)
--- NOTE | 2017-04-28 15:48 | CP.PCM.PN ---
Subjective - Date & Time of Evaluation Date of Evaluation: 04/28/17 Time of Evaluation: 15:44 - Subjective Subjective: EKG done with shows NSR, ST elevation, changes, in V5-V6, I. Patient intubated sedated, in NSR HR 74, BP 106/53. Discussed with Dr Darling/cardiology, will obtain ECHO, cardiac enzymes, ASA, Plavix. Patient in septic shock would hold off Beta Blockers for now. Patient to be seen by cardiology. No plans for cardiac cath for now given severity of clinical condition. PLAN: ASA Plavix STAT ECHO STAT Cardiac Enzymes Serial EKGs Serial Cardiac enzymes Cardiology eval Objective - Vital Signs/Intake and Output Vital Signs (last 24 hours): Temp Pulse Resp BP Pulse Ox 97.9 F 88 18 104/60 98 04/28/17 04:00 04/28/17 11:38 04/28/17 07:34 04/28/17 11:38 04/28/17 11:38 Intake and Output: 04/28/17 04/28/17 06:59 18:59 Intake Total 2858 200 Output Total 250 Balance 2608 200 - Medications Medications: Current Medications Acetaminophen (Tylenol 325mg Tab) 650 mg PO Q6H PRN PRN Reason: Fever >100.4 F Albuterol/Ipratropium (Duoneb 3 Mg/0.5 Mg (3 Ml) Ud) 3 ml IH [id number] [facility] Last Admin: 04/28/17 13:53 Dose: 3 ml Albuterol/Ipratropium (Duoneb 3 Mg/0.5 Mg (3 Ml) Ud) 3 ml IH Q2H PRN PRN Reason: Shortness of Breath Last Admin: 04/24/17 23:34 Dose: 3 ml Albuterol/Ipratropium (Duoneb 3 Mg/0.5 Mg (3 Ml) Ud) 3 ml IH Q2H PRN PRN Reason: Shortness of Breath Last Admin: 04/25/17 00:30 Dose: 3 ml Aspirin (Aspirin) 325 mg PO DAILY [facility] Last Admin: 04/28/17 15:27 Dose: 325 mg Chlorhexidine Gluconate (Peridex) 15 ml PO BID [facility] Last Admin: 04/28/17 09:24 Dose: 15 ml Folic Acid (Folic Acid) 1 mg PO DAILY [facility] Last Admin: 04/28/17 09:24 Dose: 1 mg Guaifenesin/Dextromethorphan (Robitussin Dm) 5 ml PO Q6H PRN PRN Reason: Cough Hydrocortisone Sodium Succinate (Solu-Cortef) 50 mg IVP Q6H [facility] Last Admin: 04/28/17 13:48 Dose: 50 mg Azithromycin (Zithromax 500mg In Ns) 500 mg in 250 mls @ 167 mls/hr IVPB DAILY [facility] PRN Reason: Protocol Last Admin: 04/28/17 09:19 Dose: 167 mls/hr Fentanyl Citrate (Fentanyl Citrate/Sodium Chloride 1 Mg/100 Ml) 1,000 mcg in 100 mls @ 2 mls/hr IV .Q24H PRN; Protocol; 20 MCG/HR PRN Reason: TITRATE PER MD ORDER Last Admin: 04/28/17 13:54 Dose: 200 mcg/hr, 20 mls/hr Vasopressin 20 units/ Dextrose 101 mls @ 9.09 mls/hr IV .Q11H7M [facility]; 0.03 U/MIN PRN Reason: Protocol Last Admin: 04/28/17 11:00 Dose: 9.09 mls/hr Vancomycin HCl (Vancomycin 1gm) 1 gm in 250 mls @ 167 mls/hr IVPB Q12H [facility] PRN Reason: Protocol Last Admin: 04/28/17 04:44 Dose: 167 mls/hr Norepinephrine Bitartrate 8 mg (/ Sodium Chloride) 258 mls @ 7.74 mls/hr IV .Q24H PRN; Protocol; 4 MCG/MIN PRN Reason: TITRATE PER PROTOCOL Last Admin: 04/28/17 04:51 Dose: 4 mcg/min, 7.74 mls/hr Meropenem 1 gm/ Dextrose 100 mls @ 100 mls/hr IVPB Q8 [facility] PRN Reason: Protocol Stop: 05/06/17 14:01 Last Admin: 04/28/17 13:49 Dose: 100 mls/hr Potassium Chloride 20 meq/ (Sodium Chloride) 1,010 mls @ 100 mls/hr IV .Q10H6M [facility] Last Admin: 04/28/17 04:42 Dose: 100 mls/hr Heparin Sodium/Sodium Chloride (Heparin 34032 Units/250ml 1/2 Normal Saline) 25 ,000 units in 250 mls @ 6.913 mls/hr IV .Q24H [facility]; 12 UNITS/KG/HR PRN Reason: Protocol Midazolam HCl (Versed Inj) 1 mg IVP Q2 PRN PRN Reason: Agitation Last Admin: 04/28/17 12:15 Dose: 1 mg Multivitamins/Minerals (Therapeutic-M Tab) 1 tab PO 0800 [facility] Last Admin: 04/28/17 09:24 Dose: 1 tab Ondansetron HCl (Zofran Inj) 4 mg IVP Q6H PRN PRN Reason: Nausea/Vomiting Pantoprazole Sodium (Protonix Inj) 40 mg IVP DAILY [facility] Last Admin: 04/28/17 09:23 Dose: 40 mg - Labs Labs: 04/28/17 06:13 04/28/17 06:13 PT 20.1 SECONDS (9.4-12.5) H 04/28/17 06:13 INR 1.81 (0.93-1.08) H 04/28/17 06:13 APTT 40.8 Seconds (25.1-36.5) H 04/28/17 06:13
[2017-04-28 16:30] LABS: TROPONIN I 0.34 ng/mL
--- NOTE | 2017-04-28 16:38 | CARD ---
APPROVED REPORT EKG Measurement Heart [id number] [id number] <Conclusion> Normal sinus rhythm ST elevation, consider Early repolarization co relate clinically T inversion V2-3 Abnormal ECG
[2017-04-28 16:57] LABS: BASO # 0.01 K/mm3 (0.0-2.0); BASO % 0.1 % (0.0-3.0); GRAN # 10.89 (1.4-6.5); GRAN % 86.9 % (50.0-68.0); HEMATOCRIT 29.3 % (42.0-52.0); LYMPH # 0.6 (1.2-3.4); LYMPH % 4.6 % (22.0-35.0); MEAN CELL VOLUME 96.1 fl (80.0-105.0); MEAN CORPUSCULAR HEMOGLOBIN 31.1 pg (25.0-35.0); MEAN CORPUSCULAR HGB CONC 32.4 g/dl (31.0-37.0); MEAN PLATELET VOLUME 9.8 fl (7.0-11.0); MONO # 1.1 (0.1-0.6); MONO % 8.4 % (1.0-6.0); PLATELET COUNT 119 10^3/uL (120.0-450.0); RED CELL DISTRIBUTION WIDTH 15.1 % (11.5-14.5); WHITE BLOOD COUNT 12.5 10^3/ul (4.5-11.0)
[2017-04-28 17:00] LABS: ALKALINE PHOSPHATASE 102 U/L (38-126); ALT/SGPT 38 U/L (7-56); AST/SGOT 33 U/L (17-59); BILIRUBIN,TOTAL 1.2 mg/dL (0.2-1.3); BLOOD UREA NITROGEN 40 mg/dL (7-21); CALCIUM 8.3 mg/dL (8.4-10.5); CARBON DIOXIDE 21 mmol/L (21-33); CHLORIDE 116 mmol/L (98-107); GFR AFRICAN-AMERICAN > 60; GLUCOSE,RANDOM 200 mg/dL (70-110); POTASSIUM 4.1 mmol/L (3.6-5.0); SODIUM 145 mmol/L (132-148); TOTAL PROTEIN 5.2 g/dL (5.8-8.3)
--- NOTE | 2017-04-28 18:07 | PN ---
DATE: SUBJECTIVE: The patient is 76 years old, remains intubated, marginally sedated, opens eye on verbal commands. PHYSICAL EXAMINATION VITAL SIGNS: He is afebrile. Pulse 75, respirations 18, blood pressure 98/57. LUNGS: Bilateral fair airflow. He has soft crackle in upper lung region. HEART: S1 and S2 audible. ABDOMEN: Soft, nontender. No rebound, no guarding. NEUROLOGIC: He is sleepy and arousable, remains on nasogastric tube and endotracheal tube in place. LABORATORY DATA: WBC is 10.2, hemoglobin 9.5, hematocrit 28.7, platelets 121. PT is 20.1, INR 1.81. Chemistry: Sodium 146, potassium 3.8, chloride 116, CO2 of 22, BUN 42, creatinine 0.8, blood sugar of 165. ASSESSMENT: 1. Status post left-sided chest tube insertion and drainage. 2. Sepsis, resolving. 3. Respiratory failure. 4. Anemia. 5. Leukocytosis, improving. 6. Renal insufficiency, improving. PLAN: Currently, the patient is on meropenem, vancomycin and Zithromax. Awaiting thoracic surgeons input. We will follow up electrolytes and CBC in a.m. The patient is being fed through the nasogastric tube. We will reevaluate the patient in a.m. Tony Ochoa MD
[2017-04-28 19:16] LABS: BAND 3 % (0-2); NEUTROPHIL 91 % (50.0-70.0)
[2017-04-29] MEDS: Albuterol-Ipratrop 3 mg / 0.5 (3 ml) UD IH SCH ×4 (02:30→19:44)
[2017-04-29] MEDS: Midazolam 2 MG/2 ML VIAL IVP PRN ×4 (02:34→14:55)
[2017-04-29] MEDS: Vancomycin 1gm in NS 250ml 1 GM/250 ML BAG IVPB SCH ×2 (03:30→18:51)
[2017-04-29 04:42] LABS: BASO # 0.01 K/mm3 (0.0-2.0); BASO % 0.1 % (0.0-3.0); GRAN # 11.3 (1.4-6.5); GRAN % 87.5 % (50.0-68.0); HEMATOCRIT 30.1 % (42.0-52.0); LYMPH # 0.8 (1.2-3.4); MEAN CELL VOLUME 97.7 fl (80.0-105.0); MEAN CORPUSCULAR HEMOGLOBIN 31.5 pg (25.0-35.0); MEAN CORPUSCULAR HGB CONC 32.2 g/dl (31.0-37.0); MEAN PLATELET VOLUME 10.4 fl (7.0-11.0); MONO # 0.8 (0.1-0.6); MONO % 6.4 % (1.0-6.0); RED CELL DISTRIBUTION WIDTH 15.4 % (11.5-14.5); WHITE BLOOD COUNT 12.9 10^3/ul (4.5-11.0)
[2017-04-29 04:46] LABS: ALKALINE PHOSPHATASE 105 U/L (38-126); ALT/SGPT 38 U/L (7-56); AST/SGOT 41 U/L (17-59); BILIRUBIN,TOTAL 1.2 mg/dL (0.2-1.3); BLOOD UREA NITROGEN 38 mg/dL (7-21); CALCIUM 8.5 mg/dL (8.4-10.5); CARBON DIOXIDE 22 mmol/L (21-33); CHLORIDE 117 mmol/L (98-107); GFR AFRICAN-AMERICAN > 60; GLUCOSE,RANDOM 137 mg/dL (70-110); POTASSIUM 4.6 mmol/L (3.6-5.0); SODIUM 145 mmol/L (132-148); TOTAL PROTEIN 5.4 g/dL (5.8-8.3)
[2017-04-29] MEDS: Fentanyl 1000mcg/100ml NS 1,000 MCG/100 ML BAG IV PRN ×4 (04:56→22:38)
[2017-04-29 04:57] LABS: INR 1.63 (0.93-1.08); PARTIAL THROMBOPLASTIN TIME 33.5 Seconds (25.1-36.5)
[2017-04-29] MEDS: Meropenem 1 GM in Dextrose 5% In Water 100 ML IVPB SCH ×3 (05:00→22:18)
[2017-04-29 05:03] LABS: TROPONIN I 0.33 ng/mL
[2017-04-29 05:23] LABS: ARTERIAL BLOOD GAS HCO3 20.2 mmol/L (21-28); ARTERIAL BLOOD GAS O2 CAPACITY 13.5 mL/dl (16-24); ARTERIAL BLOOD GAS O2 CONTENT 13.1 ML/dl (15-23); ARTERIAL BLOOD GAS PH 7.28 (7.35-7.45); ARTERIAL BLOOD HGB O2 SAT 94.5 % (95.0-98.0); CARBOXYHEMOGLOBIN 1.5 % (0.5-1.5); HHB 3.1 % (0-5); METHEMOGLOBIN 0.9 % (0.0-3.0)
--- NOTE | 2017-04-29 07:34 | CP.CCUPN ---
<Tawanda Arora - Last Filed: 04/29/17 10:01> CCU Subjective - Physician Review Subjective (Free Text): Patient seen and examined at bedside. Experienced arrhythmia yesterday on the telemetry. [address] elevations in lateral leads. Patient was given aspirin and plavix. Cardiology was consulted for further recommendations. Resting comfortably in bed. Intubated and sedated. Opens eyes and moves extremities spontaneously. ROS cannot be attained due to altered mental status. 04/29/17 07:46 CCU Objective - Vital Signs / Intake & Output Vital Signs (Last 4 hours): Vital Signs Temp Pulse Resp BP Pulse Ox 04/29/17 06:53 18 98 04/29/17 05:43 79 98 04/29/17 05:42 83 04/29/17 05:41 85 04/29/17 05:40 90 04/29/17 05:39 87 04/29/17 05:38 88 04/29/17 05:37 83 04/29/17 05:36 84 04/29/17 05:30 83 04/29/17 05:29 87 04/29/17 05:28 86 04/29/17 05:27 87 04/29/17 05:20 81 97 04/29/17 05:15 83 135/78 88 L 04/29/17 05:10 88 87 L 04/29/17 05:00 81 117/75 100 04/29/17 04:50 85 100 04/29/17 04:00 97.0 F L Intake and Output (Last 8hrs): Intake & Output 04/28/17 04/29/17 04/29/17 22:59 06:59 14:59 Intake Total 3528 2413 Output Total 270 0 Balance 3258 2413 Intake: IV 2168 2413 ANTIBIOTIC 700 450 Right Antecubital 240 Right Internal Jugular 1200 1200 VASOPRESSIN 110 108 Tube Feeding 960 Other 400 Output: Chest Tube Drainage 20 0 Left Mid-Axillary Chest 20 0 Urine 250 Urethral (Yu) 250 Other: # Bowel Movements 0 - Physical Exam Head: Positive for: Atraumatic, Normocephalic Extroacular Muscles: Positive for: Other (senile archus) Conjunctiva: Positive for: Normal Ears: Positive for: Normal Mouth: Positive for: Moist Mucous Membranes, Other (OGT in place, ET tube in place with bite lock) Pharnyx: Negative for: ERYTHEMA, EXUDATE Nose (External): Positive for: Atraumatic Neck: Positive for: Trachea Midline. Negative for: Meningeal Signs Respiratory/Chest: Positive for: Good Air Exchange. Negative for: Respiratory Distress, Wheezes, Rales, Rhonchi Cardiovascular: Positive for: Normal S1, S2. Negative for: Murmurs, Rub, Gallop Abdomen: Positive for: Normal Bowel Sounds. Negative for: Tenderness, Distention Back: Negative for: CVA Tenderness Upper Extremity: Positive for: Normal Inspection. Negative for: Cyanosis, Edema , Tenderness Lower Extremity: Positive for: Normal Inspection. Negative for: Edema, CALF TENDERNESS Neurological: Positive for: Other (intubated and sedated) Skin: Positive for: Warm, Dry Psychiatric: Positive for: Other (intubated and sedated) - Medications Active Medications: Active Medications Generic Name Dose Route Start Last Admin Trade Name Freq PRN Reason Stop Dose Admin Acetaminophen 650 mg 04/23/17 16:13 Tylenol 325mg Tab PO Q6H PRN Fever >100.4 F Albuterol/Ipratropium 3 ml 04/23/17 20:00 04/29/17 07:01 Duoneb 3 Mg/0.5 Mg (3 Ml) Ud IH 3 ml [id number] CEM Administration Albuterol/Ipratropium 3 ml 04/23/17 16:13 04/24/17 23:34 Duoneb 3 Mg/0.5 Mg (3 Ml) Ud IH 3 ml Q2H PRN Administration Shortness of Breath Albuterol/Ipratropium 3 ml 04/25/17 00:07 04/25/17 00:30 Duoneb 3 Mg/0.5 Mg (3 Ml) Ud IH 3 ml Q2H PRN Administration Shortness of Breath Aspirin 325 mg 04/29/17 10:00 Aspirin PO DAILY CEM Chlorhexidine Gluconate 15 ml 04/26/17 18:00 04/28/17 18:26 Peridex PO 15 ml BID CEM Administration Clopidogrel Bisulfate 75 mg 04/29/17 10:00 Plavix PO DAILY CEM Folic Acid 1 mg 04/27/17 12:00 04/28/17 09:24 Folic Acid PO 1 mg DAILY CEM Administration Guaifenesin/Dextromethorphan 5 ml 04/24/17 19:29 Robitussin Dm PO Q6H PRN Cough Hydrocortisone Sodium Succinate 50 mg 04/25/17 13:00 04/29/17 01:00 Solu-Cortef IVP 50 mg Q6H CEM Administration Azithromycin 500 mg in 250 mls @ 167 mls/hr 04/24/17 10:00 04/28/17 09:19 Zithromax 500mg In Ns IVPB 167 mls/hr DAILY CEM Administration Protocol Fentanyl Citrate 1,000 mcg in 100 mls @ 2 mls/hr 04/25/17 12:01 04/29/17 04: 56 Fentanyl Citrate/Sodium Chloride 1 Mg/100 Ml IV 200 mcg/hr .Q24H PRN 20 mls/hr TITRATE PER MD ORDER Administration Protocol 20 MCG/HR Vasopressin 20 units/ Dextrose 101 mls @ 9.09 mls/hr 04/25/17 13:00 04/28/17 18:30 IV 9.09 mls/hr .Q11H7M CEM Administration Protocol 0.03 U/MIN Vancomycin HCl 1 gm in 250 mls @ 167 mls/hr 04/25/17 16:30 04/29/17 03:30 Vancomycin 1gm IVPB 167 mls/hr Q12H CEM Administration Protocol Norepinephrine Bitartrate 8 mg 258 mls @ 7.74 mls/hr 04/25/17 22:48 04/29/17 05:46 / Sodium Chloride IV 0 mcg/min .Q24H PRN 0 mls/hr TITRATE PER PROTOCOL Titration Protocol 4 MCG/MIN Meropenem 1 gm/ Dextrose 100 mls @ 100 mls/hr 04/27/17 14:00 04/29/17 05:00 IVPB 05/06/17 14:01 100 mls/hr Q8 CEM Administration Protocol Potassium Chloride 20 meq/ 1,010 mls @ 100 mls/hr 04/27/17 16:45 04/28/17 23: 26 Sodium Chloride IV 100 mls/hr .Q10H6M CEM Administration Midazolam HCl 1 mg 04/25/17 12:08 04/29/17 02:34 Versed Inj IVP 1 mg Q2 PRN Administration Agitation Multivitamins/Minerals 1 tab 04/26/17 12:00 04/28/17 09:24 Therapeutic-M Tab PO 1 tab 0800 CEM Administration Ondansetron HCl 4 mg 04/23/17 16:13 Zofran Inj IVP Q6H PRN Nausea/Vomiting Pantoprazole Sodium 40 mg 04/23/17 16:15 04/28/17 09:23 Protonix Inj IVP 40 mg DAILY CEM Administration - Patient Studies Lab Studies: Microbiology Studies 04/24/17 17:20 Gram Stain - Final Pleural Fluid Anaerobic Culture - Final NO ANAEROBES ISOLATED. Body Fluid Culture - Final No growth. Lab Studies 04/29/17 04/29/17 04/29/17 Range/Units 05:20 04:00 04:00 WBC (4.5-11.0) 10^3/ul RBC (3.5-6.1) 10^6/uL Hgb (14.0-18.0) g/dL Hct (42.0-52.0) % MCV (80.0-105.0) fl MCH (25.0-35.0) pg MCHC (31.0-37.0) g/dl RDW (11.5-14.5) % Plt Count (120.0-450.0) 10^3/uL MPV (7.0-11.0) fl Gran % (50.0-68.0) % Lymph % (Auto) (22.0-35.0) % [place] % (Auto) (1.0-6.0) % Eos % (Auto) (1.5-5.0) % Baso % (Auto) (0.0-3.0) % Gran # (1.4-6.5) Lymph # (1.2-3.4) [place] # (0.1-0.6) Eos # (0.0-0.7) Baso # (0.0-2.0) K/mm3 Neutrophils % (Manual) (50.0-70.0) % Band Neutrophils % (0-2) % Lymphocytes % (Manual) (22.0-35.0) % Monocytes % (Manual) (1.0-6.0) % PT 18.1 H (9.4-12.5) SECONDS INR 1.63 H (0.93-1.08) APTT 33.5 (25.1-36.5) Seconds pCO2 43 (35-45) mm/Hg pO2 76.0 L (80-100) mm/Hg HCO3 20.2 L (21-28) mmol/L ABG pH 7.28 L (7.35-7.45) ABG Total CO2 21.5 L (22-28) mmol.L ABG O2 Saturation 96.8 (95-98) % ABG O2 Content 13.1 L (15-23) ML/dl ABG Base Excess -6.2 L (-2.0-3.0) mmol/L ABG Hemoglobin 9.8 L (11.7-17.4) g/dL ABG Carboxyhemoglobin 1.5 (0.5-1.5) % POC ABG HHb (Measured) 3.1 (0-5) % ABG Methemoglobin 0.9 (0.0-3.0) % ABG O2 Capacity 13.5 L (16-24) mL/dl Hgb O2 Saturation 94.5 L (95.0-98.0) % FiO2 40.0 % Sodium 145 (132-148) mmol/L Potassium 4.6 (3.6-5.0) mmol/L Chloride 117 H (98-107) mmol/L Carbon Dioxide 22 (21-33) mmol/L Anion Gap 11 (10-20) BUN 38 H (7-21) mg/dL Creatinine 0.7 L (0.8-1.5) mg/dL Est GFR ( Amer) > 60 Est GFR (Non-Af Amer) > 60 Random Glucose 137 H (70-110) mg/dL Calcium 8.5 (8.4-10.5) mg/dL Total Bilirubin 1.2 (0.2-1.3) mg/dL AST 41 (17-59) U/L ALT 38 (7-56) U/L Alkaline Phosphatase 105 (38-126) U/L Lactate Dehydrogenase (333-699) U/L Total Creatine Kinase (35-230) U/L Troponin I 0.33 H* ng/mL Total Protein 5.4 L (5.8-8.3) g/dL Albumin 2.7 L (3.0-4.8) g/dL Globulin 2.7 gm/dL Albumin/Globulin Ratio 1.0 L (1.1-1.8) Fluid Source Fluid Appearance Fluid WBC Fluid RBC Fluid Tot Cell Count Fluid Neutrophils Fluid Lymphocytes Fld Monocyte/Macrophag Fluid Comment 04/29/17 04/28/17 04/28/17 Range/Units 04:00 22:00 16:45 WBC 12.9 H 12.5 H D (4.5-11.0) 10^3/ul RBC 3.08 L 3.05 L (3.5-6.1) 10^6/uL Hgb 9.7 L 9.5 L (14.0-18.0) g/dL Hct 30.1 L 29.3 L (42.0-52.0) % MCV 97.7 96.1 (80.0-105.0) fl MCH 31.5 31.1 (25.0-35.0) pg MCHC 32.2 32.4 (31.0-37.0) g/dl RDW 15.4 H 15.1 H (11.5-14.5) % Plt Count 129 119 L (120.0-450.0) 10^3/uL MPV 10.4 9.8 (7.0-11.0) fl Gran % 87.5 H 86.9 H (50.0-68.0) % Lymph % (Auto) 6.0 L 4.6 L (22.0-35.0) % [place] % (Auto) 6.4 H 8.4 H (1.0-6.0) % Eos % (Auto) 0.0 L 0.0 L (1.5-5.0) % Baso % (Auto) 0.1 0.1 (0.0-3.0) % Gran # 11.30 H 10.89 H (1.4-6.5) Lymph # 0.8 L 0.6 L (1.2-3.4) [place] # 0.8 H 1.1 H (0.1-0.6) Eos # 0.0 0.0 (0.0-0.7) Baso # 0.01 0.01 (0.0-2.0) K/mm3 Neutrophils % (Manual) 91 H (50.0-70.0) % Band Neutrophils % 3 H (0-2) % Lymphocytes % (Manual) 4 L (22.0-35.0) % Monocytes % (Manual) 2 (1.0-6.0) % PT (9.4-12.5) SECONDS INR (0.93-1.08) APTT (25.1-36.5) Seconds pCO2 (35-45) mm/Hg pO2 (80-100) mm/Hg HCO3 (21-28) mmol/L ABG pH (7.35-7.45) ABG Total CO2 (22-28) mmol.L ABG O2 Saturation (95-98) % ABG O2 Content (15-23) ML/dl ABG Base Excess (-2.0-3.0) mmol/L ABG Hemoglobin (11.7-17.4) g/dL ABG Carboxyhemoglobin (0.5-1.5) % POC ABG HHb (Measured) (0-5) % ABG Methemoglobin (0.0-3.0) % ABG O2 Capacity (16-24) mL/dl Hgb O2 Saturation (95.0-98.0) % FiO2 % Sodium (132-148) mmol/L Potassium (3.6-5.0) mmol/L Chloride (98-107) mmol/L Carbon Dioxide (21-33) mmol/L Anion Gap (10-20) BUN (7-21) mg/dL Creatinine (0.8-1.5) mg/dL Est GFR ( Amer) Est GFR (Non-Af Amer) Random Glucose (70-110) mg/dL Calcium (8.4-10.5) mg/dL Total Bilirubin (0.2-1.3) mg/dL AST (17-59) U/L ALT (7-56) U/L Alkaline Phosphatase (38-126) U/L Lactate Dehydrogenase (333-699) U/L Total Creatine Kinase (35-230) U/L Troponin I 0.30 H* ng/mL Total Protein (5.8-8.3) g/dL Albumin (3.0-4.8) g/dL Globulin gm/dL Albumin/Globulin Ratio (1.1-1.8) Fluid Source Fluid Appearance Fluid WBC Fluid RBC Fluid Tot Cell Count Fluid Neutrophils Fluid Lymphocytes Fld Monocyte/Macrophag Fluid Comment 04/28/17 04/28/17 04/27/17 Range/Units 15:30 15:30 17:36 WBC (4.5-11.0) 10^3/ul RBC (3.5-6.1) 10^6/uL Hgb (14.0-18.0) g/dL Hct (42.0-52.0) % MCV (80.0-105.0) fl MCH (25.0-35.0) pg MCHC (31.0-37.0) g/dl RDW (11.5-14.5) % Plt Count (120.0-450.0) 10^3/uL MPV (7.0-11.0) fl Gran % (50.0-68.0) % Lymph % (Auto) (22.0-35.0) % [place] % (Auto) (1.0-6.0) % Eos % (Auto) (1.5-5.0) % Baso % (Auto) (0.0-3.0) % Gran # (1.4-6.5) Lymph # (1.2-3.4) [place] # (0.1-0.6) Eos # (0.0-0.7) Baso # (0.0-2.0) K/mm3 Neutrophils % (Manual) (50.0-70.0) % Band Neutrophils % (0-2) % Lymphocytes % (Manual) (22.0-35.0) % Monocytes % (Manual) (1.0-6.0) % PT (9.4-12.5) SECONDS INR (0.93-1.08) APTT (25.1-36.5) Seconds pCO2 (35-45) mm/Hg pO2 (80-100) mm/Hg HCO3 (21-28) mmol/L ABG pH (7.35-7.45) ABG Total CO2 (22-28) mmol.L ABG O2 Saturation (95-98) % ABG O2 Content (15-23) ML/dl ABG Base Excess (-2.0-3.0) mmol/L ABG Hemoglobin (11.7-17.4) g/dL ABG Carboxyhemoglobin (0.5-1.5) % POC ABG HHb (Measured) (0-5) % ABG Methemoglobin (0.0-3.0) % ABG O2 Capacity (16-24) mL/dl Hgb O2 Saturation (95.0-98.0) % FiO2 % Sodium 145 (132-148) mmol/L Potassium 4.1 (3.6-5.0) mmol/L Chloride 116 H (98-107) mmol/L Carbon Dioxide 21 (21-33) mmol/L Anion Gap 12 (10-20) BUN 40 H (7-21) mg/dL Creatinine 0.7 L (0.8-1.5) mg/dL Est GFR ( Amer) > 60 Est GFR (Non-Af Amer) > 60 Random Glucose 200 H (70-110) mg/dL Calcium 8.3 L (8.4-10.5) mg/dL Total Bilirubin 1.2 (0.2-1.3) mg/dL AST 33 (17-59) U/L ALT 38 (7-56) U/L Alkaline Phosphatase 102 (38-126) U/L Lactate Dehydrogenase 320 L (333-699) U/L Total Creatine Kinase 57 (35-230) U/L Troponin I 0.34 H* D ng/mL Total Protein 5.2 L (5.8-8.3) g/dL Albumin 2.6 L (3.0-4.8) g/dL Globulin 2.6 gm/dL Albumin/Globulin Ratio 1.0 L (1.1-1.8) Fluid Source Cancelled Fluid Appearance Cancelled Fluid WBC Cancelled Fluid RBC Cancelled Fluid Tot Cell Count Cancelled Fluid Neutrophils Cancelled Fluid Lymphocytes Cancelled Fld Monocyte/Macrophag Cancelled Fluid Comment Cancelled Laboratory Results - last 24 hr 04/27/17 04/28/17 04/28/17 17:36 15:30 15:30 WBC RBC Hgb Hct MCV MCH MCHC RDW Plt Count MPV Gran % Lymph % (Auto) [place] % (Auto) Eos % (Auto) Baso % (Auto) Gran # Lymph # [place] # Eos # Baso # Neutrophils % (Manual) Band Neutrophils % Lymphocytes % (Manual) Monocytes % (Manual) PT INR APTT pCO2 pO2 HCO3 ABG pH ABG Total CO2 ABG O2 Saturation ABG O2 Content ABG Base Excess ABG Hemoglobin ABG Carboxyhemoglobin POC ABG HHb (Measured) ABG Methemoglobin ABG O2 Capacity Hgb O2 Saturation FiO2 Sodium 145 Potassium 4.1 Chloride 116 H Carbon Dioxide 21 Anion Gap 12 BUN 40 H Creatinine 0.7 L Est GFR ( Amer) > 60 Est GFR (Non-Af Amer) > 60 Random Glucose 200 H Calcium 8.3 L Total Bilirubin 1.2 AST 33 ALT 38 Alkaline Phosphatase 102 Lactate Dehydrogenase 320 L Total Creatine Kinase 57 Troponin I 0.34 H* D Total Protein 5.2 L Albumin 2.6 L Globulin 2.6 Albumin/Globulin Ratio 1.0 L Fluid Source Cancelled Fluid Appearance Cancelled Fluid WBC Cancelled Fluid RBC Cancelled Fluid Tot Cell Count Cancelled Fluid Neutrophils Cancelled Fluid Lymphocytes Cancelled Fld Monocyte/Macrophag Cancelled Fluid Comment Cancelled 04/28/17 04/28/17 04/29/17 16:45 22:00 04:00 WBC 12.5 H D 12.9 H RBC 3.05 L 3.08 L Hgb 9.5 L 9.7 L Hct 29.3 L 30.1 L MCV 96.1 97.7 MCH 31.1 31.5 MCHC 32.4 32.2 RDW 15.1 H 15.4 H Plt Count 119 L 129 MPV 9.8 10.4 Gran % 86.9 H 87.5 H Lymph % (Auto) 4.6 L 6.0 L [place] % (Auto) 8.4 H 6.4 H Eos % (Auto) 0.0 L 0.0 L Baso % (Auto) 0.1 0.1 Gran # 10.89 H 11.30 H Lymph # 0.6 L 0.8 L [place] # 1.1 H 0.8 H Eos # 0.0 0.0 Baso # 0.01 0.01 Neutrophils % (Manual) 91 H Band Neutrophils % 3 H Lymphocytes % (Manual) 4 L Monocytes % (Manual) 2 PT INR APTT pCO2 pO2 HCO3 ABG pH ABG Total CO2 ABG O2 Saturation ABG O2 Content ABG Base Excess ABG Hemoglobin ABG Carboxyhemoglobin POC ABG HHb (Measured) ABG Methemoglobin ABG O2 Capacity Hgb O2 Saturation FiO2 Sodium Potassium Chloride Carbon Dioxide Anion Gap BUN Creatinine Est GFR ( Amer) Est GFR (Non-Af Amer) Random Glucose Calcium Total Bilirubin AST ALT Alkaline Phosphatase Lactate Dehydrogenase Total Creatine Kinase Troponin I 0.30 H* Total Protein Albumin Globulin Albumin/Globulin Ratio Fluid Source Fluid Appearance Fluid WBC Fluid RBC Fluid Tot Cell Count Fluid Neutrophils Fluid Lymphocytes Fld Monocyte/Macrophag Fluid Comment 04/29/17 04/29/17 04/29/17 04:00 04:00 05:20 WBC RBC Hgb Hct MCV MCH MCHC RDW Plt Count MPV Gran % Lymph % (Auto) [place] % (Auto) Eos % (Auto) Baso % (Auto) Gran # Lymph # [place] # Eos # Baso # Neutrophils % (Manual) Band Neutrophils % Lymphocytes % (Manual) Monocytes % (Manual) PT 18.1 H INR 1.63 H APTT 33.5 pCO2 43 pO2 76.0 L HCO3 20.2 L ABG pH 7.28 L ABG Total CO2 21.5 L ABG O2 Saturation 96.8 ABG O2 Content 13.1 L ABG Base Excess -6.2 L ABG Hemoglobin 9.8 L ABG Carboxyhemoglobin 1.5 POC ABG HHb (Measured) 3.1 ABG Methemoglobin 0.9 ABG O2 Capacity 13.5 L Hgb O2 Saturation 94.5 L FiO2 40.0 Sodium 145 Potassium 4.6 Chloride 117 H Carbon Dioxide 22 Anion Gap 11 BUN 38 H Creatinine 0.7 L Est GFR ( Amer) > 60 Est GFR (Non-Af Amer) > 60 Random Glucose 137 H Calcium 8.5 Total Bilirubin 1.2 AST 41 ALT 38 Alkaline Phosphatase 105 Lactate Dehydrogenase Total Creatine Kinase Troponin I 0.33 H* Total Protein 5.4 L Albumin 2.7 L Globulin 2.7 Albumin/Globulin Ratio 1.0 L Fluid Source Fluid Appearance Fluid WBC Fluid RBC Fluid Tot Cell Count Fluid Neutrophils Fluid Lymphocytes Fld Monocyte/Macrophag Fluid Comment EKG/Cardiology Studies: Cardiology / EKG Studies 04/28/17 14:50 EKG [ELECTROCARDIOGRAM] Stat Comment: Reason For Exam: EKG changes PRE OP:: N Does Patient Have a Pacemaker?: No Fingerstick Blood Sugar Results: 46 Review of Systems - Review of Systems Review of Systems: 12 point review of systems cannot be ascertained at this time due to altered mental status Assessment/Plan - Assessment and Plan (Free Text) Assessment: Patient is a 76 year old male with past medical history of dementia, alcohol abuse and HTN who was admitted for evaluation and treatment of SOB. He was transferred to the ICU for worsening SOB and altered mentation. He was found to have extensive left hemithorax opacification. He is now s/p thoracentesis with turbid yellow fluid 1050ml removed and s/p chest tube insertion. Patient is maintained on ventilation and off of vasopressor support. Plan: Neurologic - History of dementia, currently intubated and sedated with fentanyl and prn versed- opens eyes and moves extremities spontaneously - Continue sedation vacation daily - GCS 9 Cardiovascular - Septic shock, MAPs maintained > 65 off of levo gtt and vasopressin - ST elevations in the lateral leads noted- does not meet criteria for ST elevation NE, aspirin and plavix stopped as patient may have VATS, further recs as per cardio - troponins trended, reviewed, and appreciated- possible demand ischemia - Hemodynamically stable at this time - ECHO pending - cardiology consulted- appreciate recommendations Pulmonary - Large left sided pleural effusion with atelectasis on chest CT - Patient intubated for airway protection- ABG reviewed and appreciated- CO2 normalized, hypoxemic, metabolic acidosis - will adjust PRVC settings accordingly, currently at PRVC 400/18/5/40% - Cont duonebs q6h and q2h prn - Continue azithromycin D6, meropenem D6, and vancomycin D5 - Thoracentesis LDH elevated support exudate, no anareobic growth - Cont aspiration precautions - HOB >35 - Surgery consulted- appreciate recommendations- Chest tube now draining minimal serosangenous fluid approximately 20ml over 24 hours - CT surgery consulted for potential video-assisted thoracoscopic surgery- will need cardiac clearance for potential surgery tomorrow GI - discontinued feeds due to potential VATS tomorrow - Hyperbiliruinemia downtrending, monitor closely - Protonix for prophylaxis Renal/ Electrolytes - Cont strict I&O - Sodium level plateaued- will monitor closely cont free water per OGT - Following closely ID - Septic shock likely from what appears to be a parapneumonic empyema on left chest - WBC trended, reviewed, and appreciated - Given alcoholism history likely anaerobic aspiration PNA - As above cont azithro/merrem/vanco - ID Dr. Shore following, recs appreciated - Maintain euthermia Endo - Maintain euglycemia blood sugars between 140-180 - titrate down solu-cortef from q8 to q12 as patients vaso and levo are off, required to prevent adrenal insufficiency Heme - hemoglobin trended, reviewed, and appreciated- stable - SCDs Patient seen, case reviewed, and plan approved by attending physician, Dr. Santana. <Jonathan Santana - Last Filed: 04/29/17 12:34> CCU Objective - Vital Signs / Intake & Output Intake and Output (Last 8hrs): Intake & Output 04/28/17 04/29/17 04/29/17 22:59 06:59 14:59 Intake Total 3528 2413 100 Output Total 270 0 Balance 3258 2413 100 Weight 183 lb Intake: IV 2168 2413 100 ANTIBIOTIC 700 450 Right Antecubital 240 Right Internal Jugular 1200 1200 VASOPRESSIN 110 108 Tube Feeding 960 Other 400 Output: Chest Tube Drainage 20 0 Left Mid-Axillary Chest 20 0 Urine 250 Urethral (Yu) 250 Other: # Bowel Movements 0 - Medications Active Medications: Active Medications Generic Name Dose Route Start Last Admin Trade Name Freq PRN Reason Stop Dose Admin Acetaminophen 650 mg 04/23/17 16:13 Tylenol 325mg Tab PO Q6H PRN Fever >100.4 F Albuterol/Ipratropium 3 ml 04/23/17 20:00 04/29/17 07:01 Duoneb 3 Mg/0.5 Mg (3 Ml) Ud IH 3 ml [id number] CEM Administration Albuterol/Ipratropium 3 ml 04/23/17 16:13 04/24/17 23:34 Duoneb 3 Mg/0.5 Mg (3 Ml) Ud IH 3 ml Q2H PRN Administration Shortness of Breath Albuterol/Ipratropium 3 ml 04/25/17 00:07 04/25/17 00:30 Duoneb 3 Mg/0.5 Mg (3 Ml) Ud IH 3 ml Q2H PRN Administration Shortness of Breath Chlorhexidine Gluconate 15 ml 04/26/17 18:00 04/29/17 09:36 Peridex PO 15 ml BID CEM Administration Folic Acid 1 mg 04/27/17 12:00 04/29/17 09:30 Folic Acid PO 1 mg DAILY CEM Administration Guaifenesin/Dextromethorphan 5 ml 04/24/17 19:29 Robitussin Dm PO Q6H PRN Cough Hydrocortisone Sodium Succinate 50 mg 04/29/17 09:45 04/29/17 10:07 Solu-Cortef IVP 50 mg Q12H CEM Administration Azithromycin 500 mg in 250 mls @ 167 mls/hr 04/24/17 10:00 04/29/17 09:30 Zithromax 500mg In Ns IVPB 167 mls/hr DAILY CEM Administration Protocol Fentanyl Citrate 1,000 mcg in 100 mls @ 2 mls/hr 04/25/17 12:01 04/29/17 11: 01 Fentanyl Citrate/Sodium Chloride 1 Mg/100 Ml IV 200 mcg/hr .Q24H PRN 20 mls/hr TITRATE PER MD ORDER Administration Protocol 20 MCG/HR Vasopressin 20 units/ Dextrose 101 mls @ 9.09 mls/hr 04/25/17 13:00 04/28/17 18:30 IV 9.09 mls/hr .Q11H7M CEM Administration Protocol 0.03 U/MIN Vancomycin HCl 1 gm in 250 mls @ 167 mls/hr 04/25/17 16:30 04/29/17 03:30 Vancomycin 1gm IVPB 167 mls/hr Q12H CEM Administration Protocol Norepinephrine Bitartrate 8 mg 258 mls @ 7.74 mls/hr 04/25/17 22:48 04/29/17 05:46 / Sodium Chloride IV 0 mcg/min .Q24H PRN 0 mls/hr TITRATE PER PROTOCOL Titration Protocol 4 MCG/MIN Meropenem 1 gm/ Dextrose 100 mls @ 100 mls/hr 04/27/17 14:00 04/29/17 05:00 IVPB 05/06/17 14:01 100 mls/hr Q8 CEM Administration Protocol Potassium Chloride 20 meq/ 1,010 mls @ 100 mls/hr 04/27/17 16:45 04/28/17 23: 26 Sodium Chloride IV 100 mls/hr .Q10H6M CEM Administration Midazolam HCl 2 mg 04/29/17 09:28 04/29/17 11:16 Versed Inj IVP 2 mg Q2 PRN Administration Agitation Multivitamins/Minerals 1 tab 04/26/17 12:00 04/29/17 08:11 Therapeutic-M Tab PO 1 tab 0800 CEM Administration Ondansetron HCl 4 mg 04/23/17 16:13 Zofran Inj IVP Q6H PRN Nausea/Vomiting Pantoprazole Sodium 40 mg 04/23/17 16:15 04/29/17 09:30 Protonix Inj IVP 40 mg DAILY CEM Administration - Patient Studies Lab Studies: Microbiology Studies 04/24/17 17:20 Gram Stain - Final Pleural Fluid Anaerobic Culture - Final NO ANAEROBES ISOLATED. Body Fluid Culture - Final No growth. Lab Studies 04/29/17 04/29/17 04/29/17 Range/Units 05:20 04:00 04:00 WBC (4.5-11.0) 10^3/ul RBC (3.5-6.1) 10^6/uL Hgb (14.0-18.0) g/dL Hct (42.0-52.0) % MCV (80.0-105.0) fl MCH (25.0-35.0) pg MCHC (31.0-37.0) g/dl RDW (11.5-14.5) % Plt Count (120.0-450.0) 10^3/uL MPV (7.0-11.0) fl Gran % (50.0-68.0) % Lymph % (Auto) (22.0-35.0) % [place] % (Auto) (1.0-6.0) % Eos % (Auto) (1.5-5.0) % Baso % (Auto) (0.0-3.0) % Gran # (1.4-6.5) Lymph # (1.2-3.4) [place] # (0.1-0.6) Eos # (0.0-0.7) Baso # (0.0-2.0) K/mm3 Neutrophils % (Manual) (50.0-70.0) % Band Neutrophils % (0-2) % Lymphocytes % (Manual) (22.0-35.0) % Monocytes % (Manual) (1.0-6.0) % PT 18.1 H (9.4-12.5) SECONDS INR 1.63 H (0.93-1.08) APTT 33.5 (25.1-36.5) Seconds pCO2 43 (35-45) mm/Hg pO2 76.0 L (80-100) mm/Hg HCO3 20.2 L (21-28) mmol/L ABG pH 7.28 L (7.35-7.45) ABG Total CO2 21.5 L (22-28) mmol.L ABG O2 Saturation 96.8 (95-98) % ABG O2 Content 13.1 L (15-23) ML/dl ABG Base Excess -6.2 L (-2.0-3.0) mmol/L ABG Hemoglobin 9.8 L (11.7-17.4) g/dL ABG Carboxyhemoglobin 1.5 (0.5-1.5) % POC ABG HHb (Measured) 3.1 (0-5) % ABG Methemoglobin 0.9 (0.0-3.0) % ABG O2 Capacity 13.5 L (16-24) mL/dl Hgb O2 Saturation 94.5 L (95.0-98.0) % FiO2 40.0 % Sodium 145 (132-148) mmol/L Potassium 4.6 (3.6-5.0) mmol/L Chloride 117 H (98-107) mmol/L Carbon Dioxide 22 (21-33) mmol/L Anion Gap 11 (10-20) BUN 38 H (7-21) mg/dL Creatinine 0.7 L (0.8-1.5) mg/dL Est GFR ( Amer) > 60 Est GFR (Non-Af Amer) > 60 Random Glucose 137 H (70-110) mg/dL Calcium 8.5 (8.4-10.5) mg/dL Total Bilirubin 1.2 (0.2-1.3) mg/dL AST 41 (17-59) U/L ALT 38 (7-56) U/L Alkaline Phosphatase 105 (38-126) U/L Lactate Dehydrogenase (333-699) U/L Total Creatine Kinase (35-230) U/L Troponin I 0.33 H* ng/mL Total Protein 5.4 L (5.8-8.3) g/dL Albumin 2.7 L (3.0-4.8) g/dL Globulin 2.7 gm/dL Albumin/Globulin Ratio 1.0 L (1.1-1.8) 04/29/17 04/28/17 04/28/17 Range/Units 04:00 22:00 16:45 WBC 12.9 H 12.5 H D (4.5-11.0) 10^3/ul RBC 3.08 L 3.05 L (3.5-6.1) 10^6/uL Hgb 9.7 L 9.5 L (14.0-18.0) g/dL Hct 30.1 L 29.3 L (42.0-52.0) % MCV 97.7 96.1 (80.0-105.0) fl MCH 31.5 31.1 (25.0-35.0) pg MCHC 32.2 32.4 (31.0-37.0) g/dl RDW 15.4 H 15.1 H (11.5-14.5) % Plt Count 129 119 L (120.0-450.0) 10^3/uL MPV 10.4 9.8 (7.0-11.0) fl Gran % 87.5 H 86.9 H (50.0-68.0) % Lymph % (Auto) 6.0 L 4.6 L (22.0-35.0) % [place] % (Auto) 6.4 H 8.4 H (1.0-6.0) % Eos % (Auto) 0.0 L 0.0 L (1.5-5.0) % Baso % (Auto) 0.1 0.1 (0.0-3.0) % Gran # 11.30 H 10.89 H (1.4-6.5) Lymph # 0.8 L 0.6 L (1.2-3.4) [place] # 0.8 H 1.1 H (0.1-0.6) Eos # 0.0 0.0 (0.0-0.7) Baso # 0.01 0.01 (0.0-2.0) K/mm3 Neutrophils % (Manual) 91 H (50.0-70.0) % Band Neutrophils % 3 H (0-2) % Lymphocytes % (Manual) 4 L (22.0-35.0) % Monocytes % (Manual) 2 (1.0-6.0) % PT (9.4-12.5) SECONDS INR (0.93-1.08) APTT (25.1-36.5) Seconds pCO2 (35-45) mm/Hg pO2 (80-100) mm/Hg HCO3 (21-28) mmol/L ABG pH (7.35-7.45) ABG Total CO2 (22-28) mmol.L ABG O2 Saturation (95-98) % ABG O2 Content (15-23) ML/dl ABG Base Excess (-2.0-3.0) mmol/L ABG Hemoglobin (11.7-17.4) g/dL ABG Carboxyhemoglobin (0.5-1.5) % POC ABG HHb (Measured) (0-5) % ABG Methemoglobin (0.0-3.0) % ABG O2 Capacity (16-24) mL/dl Hgb O2 Saturation (95.0-98.0) % FiO2 % Sodium (132-148) mmol/L Potassium (3.6-5.0) mmol/L Chloride (98-107) mmol/L Carbon Dioxide (21-33) mmol/L Anion Gap (10-20) BUN (7-21) mg/dL Creatinine (0.8-1.5) mg/dL Est GFR ( Amer) Est GFR (Non-Af Amer) Random Glucose (70-110) mg/dL Calcium (8.4-10.5) mg/dL Total Bilirubin (0.2-1.3) mg/dL AST (17-59) U/L ALT (7-56) U/L Alkaline Phosphatase (38-126) U/L Lactate Dehydrogenase (333-699) U/L Total Creatine Kinase (35-230) U/L Troponin I 0.30 H* ng/mL Total Protein (5.8-8.3) g/dL Albumin (3.0-4.8) g/dL Globulin gm/dL Albumin/Globulin Ratio (1.1-1.8) 04/28/17 04/28/17 Range/Units 15:30 15:30 WBC (4.5-11.0) 10^3/ul RBC (3.5-6.1) 10^6/uL Hgb (14.0-18.0) g/dL Hct (42.0-52.0) % MCV (80.0-105.0) fl MCH (25.0-35.0) pg MCHC (31.0-37.0) g/dl RDW (11.5-14.5) % Plt Count (120.0-450.0) 10^3/uL MPV (7.0-11.0) fl Gran % (50.0-68.0) % Lymph % (Auto) (22.0-35.0) % [place] % (Auto) (1.0-6.0) % Eos % (Auto) (1.5-5.0) % Baso % (Auto) (0.0-3.0) % Gran # (1.4-6.5) Lymph # (1.2-3.4) [place] # (0.1-0.6) Eos # (0.0-0.7) Baso # (0.0-2.0) K/mm3 Neutrophils % (Manual) (50.0-70.0) % Band Neutrophils % (0-2) % Lymphocytes % (Manual) (22.0-35.0) % Monocytes % (Manual) (1.0-6.0) % PT (9.4-12.5) SECONDS INR (0.93-1.08) APTT (25.1-36.5) Seconds pCO2 (35-45) mm/Hg pO2 (80-100) mm/Hg HCO3 (21-28) mmol/L ABG pH (7.35-7.45) ABG Total CO2 (22-28) mmol.L ABG O2 Saturation (95-98) % ABG O2 Content (15-23) ML/dl ABG Base Excess (-2.0-3.0) mmol/L ABG Hemoglobin (11.7-17.4) g/dL ABG Carboxyhemoglobin (0.5-1.5) % POC ABG HHb (Measured) (0-5) % ABG Methemoglobin (0.0-3.0) % ABG O2 Capacity (16-24) mL/dl Hgb O2 Saturation (95.0-98.0) % FiO2 % Sodium 145 (132-148) mmol/L Potassium 4.1 (3.6-5.0) mmol/L Chloride 116 H (98-107) mmol/L Carbon Dioxide 21 (21-33) mmol/L Anion Gap 12 (10-20) BUN 40 H (7-21) mg/dL Creatinine 0.7 L (0.8-1.5) mg/dL Est GFR ( Amer) > 60 Est GFR (Non-Af Amer) > 60 Random Glucose 200 H (70-110) mg/dL Calcium 8.3 L (8.4-10.5) mg/dL Total Bilirubin 1.2 (0.2-1.3) mg/dL AST 33 (17-59) U/L ALT 38 (7-56) U/L Alkaline Phosphatase 102 (38-126) U/L Lactate Dehydrogenase 320 L (333-699) U/L Total Creatine Kinase 57 (35-230) U/L Troponin I 0.34 H* D ng/mL Total Protein 5.2 L (5.8-8.3) g/dL Albumin 2.6 L (3.0-4.8) g/dL Globulin 2.6 gm/dL Albumin/Globulin Ratio 1.0 L (1.1-1.8) Laboratory Results - last 24 hr 04/28/17 04/28/17 04/28/17 15:30 15:30 16:45 WBC 12.5 H D RBC 3.05 L Hgb 9.5 L Hct 29.3 L MCV 96.1 MCH 31.1 MCHC 32.4 RDW 15.1 H Plt Count 119 L MPV 9.8 Gran % 86.9 H Lymph % (Auto) 4.6 L [place] % (Auto) 8.4 H Eos % (Auto) 0.0 L Baso % (Auto) 0.1 Gran # 10.89 H Lymph # 0.6 L Dup[place] # 1.1 H Eos # 0.0 Baso # 0.01 Neutrophils % (Manual) 91 H Band Neutrophils % 3 H Lymphocytes % (Manual) 4 L Monocytes % (Manual) 2 PT INR APTT pCO2 pO2 HCO3 ABG pH ABG Total CO2 ABG O2 Saturation ABG O2 Content ABG Base Excess ABG Hemoglobin ABG Carboxyhemoglobin POC ABG HHb (Measured) ABG Methemoglobin ABG O2 Capacity Hgb O2 Saturation FiO2 Sodium 145 Potassium 4.1 Chloride 116 H Carbon Dioxide 21 Anion Gap 12 BUN 40 H Creatinine 0.7 L Est GFR ( Amer) > 60 Est GFR (Non-Af Amer) > 60 Random Glucose 200 H Calcium 8.3 L Total Bilirubin 1.2 AST 33 ALT 38 Alkaline Phosphatase 102 Lactate Dehydrogenase 320 L Total Creatine Kinase 57 Troponin I 0.34 H* D Total Protein 5.2 L Albumin 2.6 L Globulin 2.6 Albumin/Globulin Ratio 1.0 L 04/28/17 04/29/17 04/29/17 22:00 04:00 04:00 WBC 12.9 H RBC 3.08 L Hgb 9.7 L Hct 30.1 L MCV 97.7 MCH 31.5 MCHC 32.2 RDW 15.4 H Plt Count 129 MPV 10.4 Gran % 87.5 H Lymph % (Auto) 6.0 L Dup[place] % (Auto) 6.4 H Eos % (Auto) 0.0 L Baso % (Auto) 0.1 Gran # 11.30 H Lymph # 0.8 L Dup[place] # 0.8 H Eos # 0.0 Baso # 0.01 Neutrophils % (Manual) Band Neutrophils % Lymphocytes % (Manual) Monocytes % (Manual) PT INR APTT pCO2 pO2 HCO3 ABG pH ABG Total CO2 ABG O2 Saturation ABG O2 Content ABG Base Excess ABG Hemoglobin ABG Carboxyhemoglobin POC ABG HHb (Measured) ABG Methemoglobin ABG O2 Capacity Hgb O2 Saturation FiO2 Sodium 145 Potassium 4.6 Chloride 117 H Carbon Dioxide 22 Anion Gap 11 BUN 38 H Creatinine 0.7 L Est GFR ( Amer) > 60 Est GFR (Non-Af Amer) > 60 Random Glucose 137 H Calcium 8.5 Total Bilirubin 1.2 AST 41 ALT 38 Alkaline Phosphatase 105 Lactate Dehydrogenase Total Creatine Kinase Troponin I 0.30 H* 0.33 H* Total Protein 5.4 L Albumin 2.7 L Globulin 2.7 Albumin/Globulin Ratio 1.0 L 04/29/17 04/29/17 04:00 05:20 WBC RBC Hgb Hct MCV MCH MCHC RDW Plt Count MPV Gran % Lymph % (Auto) [place] % (Auto) Eos % (Auto) Baso % (Auto) Gran # Lymph # [place] # Eos # Baso # Neutrophils % (Manual) Band Neutrophils % Lymphocytes % (Manual) Monocytes % (Manual) PT 18.1 H INR 1.63 H APTT 33.5 pCO2 43 pO2 76.0 L HCO3 20.2 L ABG pH 7.28 L ABG Total CO2 21.5 L ABG O2 Saturation 96.8 ABG O2 Content 13.1 L ABG Base Excess -6.2 L ABG Hemoglobin 9.8 L ABG Carboxyhemoglobin 1.5 POC ABG HHb (Measured) 3.1 ABG Methemoglobin 0.9 ABG O2 Capacity 13.5 L Hgb O2 Saturation 94.5 L FiO2 40.0 Sodium Potassium Chloride Carbon Dioxide Anion Gap BUN Creatinine Est GFR ( Amer) Est GFR (Non-Af Amer) Random Glucose Calcium Total Bilirubin AST ALT Alkaline Phosphatase Lactate Dehydrogenase Total Creatine Kinase Troponin I Total Protein Albumin Globulin Albumin/Globulin Ratio EKG/Cardiology Studies: Cardiology / EKG Studies 04/28/17 14:50 EKG [ELECTROCARDIOGRAM] Stat Comment: Reason For Exam: EKG changes PRE OP:: N Does Patient Have a Pacemaker?: No 04/29/17 07:41 EKG [ELECTROCARDIOGRAM] Stat Comment: Reason For Exam: acs 04/30/17 06:00 ELECTROCARDIOGRAM Routine Comment: Reason For Exam: NE Assessment/Plan - Assessment and Plan (Free Text) Plan: Patient seen and examined, on rounds with resident, agree with note, with following additions/exceptions: Patient is 76yo male a/w septic shock, 2/2 PNA/Empyema, s/p thoracentesis and Chest tube drainage with large bore CT placed by surgery. Patient with minimal output from CT, as per surgery would leave it in for now. Pt yesterday had EKG changes in lateral leads, NSR, [facility] consulted, EKG reviewed, no plans for cath for now. ECHO done today, read pending. Cardiology Dr Darling, following. If cleared by cardiology patient can proceed with thoracotomy. Pt off pressors. Septic Shock Empyema/Pleural Effusion PNA Hypothyroidism Abnormal EKG Recommend - cont with ventilatory support, low tidal vol ventilation - antibiotics as per ID - follow up cultures, procalcitonin - DC IVF - follow up cardiology, defer antiplatelets to cardiology - consider starting low dose Betablocker - monitor HH - monitor FS - follow up CT Surgery - MVT, Thiamine, Folic Acid - GI ppx - DVT ppx
--- NOTE | 2017-04-29 08:04 | RAD ---
HISTORY: intubated COMPARISON: 04/26/2017 FINDINGS: LUNGS: There is a persistent infiltrate at the left lung base. A chest tube remains in place. There is no pneumothorax. The nasogastric tube terminates in the distal esophagus above the diaphragm and should be advanced. The endotracheal tube is in satisfactory position PLEURA: No significant pleural effusion identified, no pneumothorax apparent. CARDIOVASCULAR: Normal. OSSEOUS STRUCTURES: No significant abnormalities. VISUALIZED UPPER ABDOMEN: Normal. OTHER FINDINGS: None. IMPRESSION: There is a persistent infiltrate at the left lung base. A chest tube remains in place. There is no pneumothorax. The nasogastric tube terminates in the distal esophagus above the diaphragm and should be advanced.
[2017-04-29] MEDS: Multivitamin With Minerals Tab PO SCH (08:11)
[2017-04-29] MEDS: Azithromycin 500MG/NS 250ml 500 MG/250 ML BAG IVPB SCH (09:30)
[2017-04-29] MEDS: Chlorhexidine 0.12% Oral Sol 480 ml Bot PO SCH ×2 (09:36→18:27)
--- NOTE | 2017-04-29 10:01 | CP.PCM.PN ---
Subjective - Date & Time of Evaluation Date of Evaluation: 04/29/17 Time of Evaluation: 09:45 - Subjective Subjective: Still on the ventilator, gets agitated during weaning trials, now off pressors, no fevers overnight. Objective - Vital Signs/Intake and Output Vital Signs (last 24 hours): Temp Pulse Resp BP Pulse Ox 97.8 F 95 H 18 135/78 99 04/28/17 20:00 04/29/17 05:43 04/28/17 07:34 04/29/17 05:15 04/29/17 05:43 Intake and Output: 04/28/17 04/29/17 18:59 06:59 Intake Total 3741 415 Output Total 270 Balance 3471 415 - Medications Medications: Current Medications Acetaminophen (Tylenol 325mg Tab) 650 mg PO Q6H PRN PRN Reason: Fever >100.4 F Albuterol/Ipratropium (Duoneb 3 Mg/0.5 Mg (3 Ml) Ud) 3 ml IH [id number] [facility] Last Admin: 04/29/17 02:30 Dose: 3 ml Albuterol/Ipratropium (Duoneb 3 Mg/0.5 Mg (3 Ml) Ud) 3 ml IH Q2H PRN PRN Reason: Shortness of Breath Last Admin: 04/24/17 23:34 Dose: 3 ml Albuterol/Ipratropium (Duoneb 3 Mg/0.5 Mg (3 Ml) Ud) 3 ml IH Q2H PRN PRN Reason: Shortness of Breath Last Admin: 04/25/17 00:30 Dose: 3 ml Aspirin (Aspirin) 325 mg PO DAILY [facility] Chlorhexidine Gluconate (Peridex) 15 ml PO BID [facility] Last Admin: 04/28/17 18:26 Dose: 15 ml Clopidogrel Bisulfate (Plavix) 75 mg PO DAILY [facility] Folic Acid (Folic Acid) 1 mg PO DAILY [facility] Last Admin: 04/28/17 09:24 Dose: 1 mg Guaifenesin/Dextromethorphan (Robitussin Dm) 5 ml PO Q6H PRN PRN Reason: Cough Hydrocortisone Sodium Succinate (Solu-Cortef) 50 mg IVP Q6H [facility] Last Admin: 04/29/17 01:00 Dose: 50 mg Azithromycin (Zithromax 500mg In Ns) 500 mg in 250 mls @ 167 mls/hr IVPB DAILY [facility] PRN Reason: Protocol Last Admin: 04/28/17 09:19 Dose: 167 mls/hr Fentanyl Citrate (Fentanyl Citrate/Sodium Chloride 1 Mg/100 Ml) 1,000 mcg in 100 mls @ 2 mls/hr IV .Q24H PRN; Protocol; 20 MCG/HR PRN Reason: TITRATE PER MD ORDER Last Admin: 04/29/17 04:56 Dose: 200 mcg/hr, 20 mls/hr Vasopressin 20 units/ Dextrose 101 mls @ 9.09 mls/hr IV .Q11H7M [facility]; 0.03 U/MIN PRN Reason: Protocol Last Admin: 04/28/17 18:30 Dose: 9.09 mls/hr Vancomycin HCl (Vancomycin 1gm) 1 gm in 250 mls @ 167 mls/hr IVPB Q12H [facility] PRN Reason: Protocol Last Admin: 04/29/17 03:30 Dose: 167 mls/hr Norepinephrine Bitartrate 8 mg (/ Sodium Chloride) 258 mls @ 7.74 mls/hr IV .Q24H PRN; Protocol; 4 MCG/MIN PRN Reason: TITRATE PER PROTOCOL Last Titration: 04/29/17 05:46 Dose: 0 mcg/min, 0 mls/hr Meropenem 1 gm/ Dextrose 100 mls @ 100 mls/hr IVPB Q8 [facility] PRN Reason: Protocol Stop: 05/06/17 14:01 Last Admin: 04/29/17 05:00 Dose: 100 mls/hr Potassium Chloride 20 meq/ (Sodium Chloride) 1,010 mls @ 100 mls/hr IV .Q10H6M [facility] Last Admin: 04/28/17 23:26 Dose: 100 mls/hr Midazolam HCl (Versed Inj) 1 mg IVP Q2 PRN PRN Reason: Agitation Last Admin: 04/29/17 02:34 Dose: 1 mg Multivitamins/Minerals (Therapeutic-M Tab) 1 tab PO 0800 [facility] Last Admin: 04/28/17 09:24 Dose: 1 tab Ondansetron HCl (Zofran Inj) 4 mg IVP Q6H PRN PRN Reason: Nausea/Vomiting Pantoprazole Sodium (Protonix Inj) 40 mg IVP DAILY [facility] Last Admin: 04/28/17 09:23 Dose: 40 mg - Labs Labs: 04/29/17 04:00 04/29/17 04:00 PT 18.1 SECONDS (9.4-12.5) H 04/29/17 04:00 INR 1.63 (0.93-1.08) H 04/29/17 04:00 APTT 33.5 Seconds (25.1-36.5) 04/29/17 04:00 - Constitutional Appears: Other (intubated and sedated) - Head Exam Head Exam: NORMAL INSPECTION - ENT Exam Additional comments: ET tube in place - Neck Exam Neck Exam: absent: Meningismus - Respiratory Exam Respiratory Exam: Rales (scattered) Additional comments: left sided chest tube in place - Cardiovascular Exam Cardiovascular Exam: +S1, +S2 - GI/Abdominal Exam GI & Abdominal Exam: Soft. absent: Tenderness Assessment and Plan - Assessment and Plan (Free Text) Plan: Assessment Severe sepsis with ventilator dependent respiratory failure due to left sided severe community-acquired aspiration pneumonia with left sided pleural effusion S/P thoracentesis and now S/P chest tube placement POD #4, slowly improving, now off vasopressors history of alcohol abuse hypothyroidism cataracts S/P left eye surgery HTN dementia Plan will d/c Vancomycin and continue Merrem and Zithromax day 6 since blood cx and pleural fluid cx are negative; will continue monitor chest tube output ( starting to decrease) follow up plan ofcardiothoracic surgery for possible VATS will continue to monitor clinically discussed with ICU team
--- NOTE | 2017-04-29 10:56 | CARD ---
APPROVED REPORT EKG Measurement Heart [id number] <Conclusion> Normal sinus rhythm Nonspecific ST and T wave abnormality Abnormal ECG
[2017-04-29] MEDS ORDERED: Sodium Chloride 0.9% 1,000 ML IV STA (12:35)
--- NOTE | 2017-04-29 14:06 | CP.PCM.PN ---
Subjective - Date & Time of Evaluation Date of Evaluation: 04/29/17 Time of Evaluation: 14:01 - Subjective Subjective: Thoracic Surgery - Dr He Pt S&E NAEO but had apparent STEMI yesterday, trops 0.34, awaiting cardiology input. Pt remains intubated on vent, 5 peep 40% fio2. He is sedated but responds to pain. L CT on wall suction w/ 20cc purulent drainage/24hrs. Dressing changed and is C/D/I. Objective - Vital Signs/Intake and Output Vital Signs (last 24 hours): Temp Pulse Resp BP Pulse Ox 97.0 F L 95 H 18 135/78 98 04/29/17 04:00 04/29/17 05:43 04/29/17 06:53 04/29/17 05:15 04/29/17 06:53 Intake and Output: 04/29/17 04/29/17 06:59 18:59 Intake Total 2413 100 Output Total 0 Balance 2413 100 - Medications Medications: Current Medications Acetaminophen (Tylenol 325mg Tab) 650 mg PO Q6H PRN PRN Reason: Fever >100.4 F Albuterol/Ipratropium (Duoneb 3 Mg/0.5 Mg (3 Ml) Ud) 3 ml IH [id number] [facility] Last Admin: 04/29/17 13:20 Dose: 3 ml Albuterol/Ipratropium (Duoneb 3 Mg/0.5 Mg (3 Ml) Ud) 3 ml IH Q2H PRN PRN Reason: Shortness of Breath Last Admin: 04/24/17 23:34 Dose: 3 ml Albuterol/Ipratropium (Duoneb 3 Mg/0.5 Mg (3 Ml) Ud) 3 ml IH Q2H PRN PRN Reason: Shortness of Breath Last Admin: 04/25/17 00:30 Dose: 3 ml Chlorhexidine Gluconate (Peridex) 15 ml PO BID [facility] Last Admin: 04/29/17 09:36 Dose: 15 ml Folic Acid (Folic Acid) 1 mg PO DAILY [facility] Last Admin: 04/29/17 09:30 Dose: 1 mg Guaifenesin/Dextromethorphan (Robitussin Dm) 5 ml PO Q6H PRN PRN Reason: Cough Hydrocortisone Sodium Succinate (Solu-Cortef) 50 mg IVP Q12H [facility] Last Admin: 04/29/17 10:07 Dose: 50 mg Azithromycin (Zithromax 500mg In Ns) 500 mg in 250 mls @ 167 mls/hr IVPB DAILY [facility] PRN Reason: Protocol Last Admin: 04/29/17 09:30 Dose: 167 mls/hr Fentanyl Citrate (Fentanyl Citrate/Sodium Chloride 1 Mg/100 Ml) 1,000 mcg in 100 mls @ 2 mls/hr IV .Q24H PRN; Protocol; 20 MCG/HR PRN Reason: TITRATE PER MD ORDER Last Admin: 04/29/17 11:01 Dose: 200 mcg/hr, 20 mls/hr Vasopressin 20 units/ Dextrose 101 mls @ 9.09 mls/hr IV .Q11H7M [facility]; 0.03 U/MIN PRN Reason: Protocol Last Admin: 04/28/17 18:30 Dose: 9.09 mls/hr Vancomycin HCl (Vancomycin 1gm) 1 gm in 250 mls @ 167 mls/hr IVPB Q12H [facility] PRN Reason: Protocol Last Admin: 04/29/17 03:30 Dose: 167 mls/hr Norepinephrine Bitartrate 8 mg (/ Sodium Chloride) 258 mls @ 7.74 mls/hr IV .Q24H PRN; Protocol; 4 MCG/MIN PRN Reason: TITRATE PER PROTOCOL Last Titration: 04/29/17 05:46 Dose: 0 mcg/min, 0 mls/hr Meropenem 1 gm/ Dextrose 100 mls @ 100 mls/hr IVPB Q8 [facility] PRN Reason: Protocol Stop: 05/06/17 14:01 Last Admin: 04/29/17 13:06 Dose: 100 mls/hr Potassium Chloride 20 meq/ (Sodium Chloride) 1,010 mls @ 100 mls/hr IV .Q10H6M [facility] Last Admin: 04/28/17 23:26 Dose: 100 mls/hr Midazolam HCl (Versed Inj) 2 mg IVP Q2 PRN PRN Reason: Agitation Last Admin: 04/29/17 11:16 Dose: 2 mg Multivitamins/Minerals (Therapeutic-M Tab) 1 tab PO 0800 [facility] Last Admin: 04/29/17 08:11 Dose: 1 tab Ondansetron HCl (Zofran Inj) 4 mg IVP Q6H PRN PRN Reason: Nausea/Vomiting Pantoprazole Sodium (Protonix Inj) 40 mg IVP DAILY [facility] Last Admin: 04/29/17 09:30 Dose: 40 mg - Labs Labs: 04/29/17 04:00 04/29/17 04:00 PT 18.1 SECONDS (9.4-12.5) H 04/29/17 04:00 INR 1.63 (0.93-1.08) H 04/29/17 04:00 APTT 33.5 Seconds (25.1-36.5) 04/29/17 04:00 - Constitutional Appears: No Acute Distress - Head Exam Head Exam: ATRAUMATIC, NORMAL INSPECTION, NORMOCEPHALIC - Respiratory Exam Respiratory Exam: absent: Respiratory Distress Additional comments: vent, L CT to wall suction - Cardiovascular Exam Cardiovascular Exam: REGULAR RHYTHM - Neurological Exam Neurological Exam: Alert, Oriented x3 - Psychiatric Exam Psychiatric exam: Normal Affect, Normal Mood - Skin Skin Exam: Dry, Intact, Normal Color Assessment and Plan - Assessment and Plan (Free Text) Assessment: 76yo M with empyema s/p Left sided Chest Tube placement on 04/25 - Continue L CT to wall suction, monitor output - Continue Iv Abx - F/U Cardiology, Echo, cardiac enzymes - Plan for OR , pending pre-op eval from cardiology DW Dr. Ying Yee PGY3
[2017-04-29] MEDS: Dexmedetomidine HCl 4mcg/ml 400 MCG/100 ML BOTTLE IV PRN (15:26)
[2017-04-29 17:42] LABS: CHOLESTEROL PLEURAL FLUID 23 mg/dL; GLUCOSE PLEURAL FLUID <10 mg/dL; TRIGLYCERIDES PLEURAL FLUID 31 mg/dL
--- NOTE | 2017-04-29 19:41 | CON ---
DATE: 04/29/2017 INDICATIONS: Abnormal EKG, possible acute myocardial infarction. HISTORY OF PRESENT ILLNESS: This is a 76-year-old man admitted on 04/23/2017 with shortness of breath. He developed respiratory difficulty. He was transferred to the Intensive Care Unit, found to have a large pneumonia with empyema, underwent thoracentesis and eventually chest tube drainage of large amount of purulent drainage fluid. He has had respiratory failure, on a ventilator; sepsis; coagulopathy; altered mental status with a history of hypertension, hypothyroidism, daily alcohol use, abnormal liver function test, BPH, and cataract surgery. There is no cardiac history mentioned in the chart. Yesterday, he was noted to have increased heart rate on the monitor and an EKG was done. It showed ST elevations and prolonged QT interval, findings which suggested acute myocardial infarction, that were new compared to a prior EKG. There is no evidence of chest pain and he was hemodynamically stable coming off pressors, which have been given for septic shock. Troponins were mildly elevated in the 0.3 to 0.35 range. Currently, he is on a ventilator. He is sedated. His blood pressure has stabilized and he has been weaned off pressors, which were necessary for the past few days. I have reviewed his chart. He is unable to give history at this time. CURRENT MEDICATIONS: Include DuoNeb, fentanyl, folic acid, meropenem, pantoprazole, hydrocortisone, multivitamins, vancomycin, Versed, azithromycin, and Zofran. ALLERGIES: THERE ARE NO KNOWN MEDICATION ALLERGIES. Prior to his illness, he lived at home with his who has severe dementia. They are supported by their family. He does not smoke. He was a heavy drinker until fairly recently. REVIEW OF SYSTEMS: A 10-point review of systems is unavailable. PHYSICAL EXAMINATION: GENERAL: He is an elderly male, on the ventilator, in the Intensive Care Unit, in no apparent distress, sedated. VITAL SIGNS: Heart rate in the 80s, afebrile, blood pressure 135/78, respirations 18, O2 sat 98% on 40% FiO2 via mechanical ventilator. HEENT: Limited. No obvious neck vein distention or thyromegaly. Mucous membranes moist. Conjunctiva pink. LUNGS: Lung wu, diminished breath sounds on the left. HEART: Revealed normal first and second heart sounds, which were distant and obscured. ABDOMEN: Soft. EXTREMITIES: Mild edema. NEUROLOGIC: Sedated. I and O has been markedly positive over the last several days. LABORATORY DATA AND IMAGING: Today's chest x-ray reveals persistent infiltrate at the left base, chest tube in place, no pneumothorax, etc. The EKG today discloses regular sinus rhythm, mild ST elevations still noted in V4 and V5, but overall the picture is improved. The QT interval has shortened. A CT scan of the chest on 04/26/2017, status post chest tube placement with near complete evacuation of fluid in the left pleural space, markedly improved aeration and reexpansion of the left lung, trace residual left pneumothorax, etc. White count 12,900, hemoglobin 9.7, hematocrit 30.1, platelet count 129,000. PT 18.1, INR 1.63, PTT 33.5. Blood gases are noted. Electrolytes unremarkable except for chloride of 117, BUN 38, creatinine 0.7, blood sugar 137, calcium 8.5. LFTs unremarkable. Troponin 0.34, repeat 0.30, repeat 0.33. Blood cultures are negative at 5 days x 2. Other cultures are pending. Sputum culture is growing yeast species. ASSESSMENT: Roldan Lance is a 76-year-old man originally admitted with shortness of breath, left-sided pneumonia with empyema who developed respiratory failure, sepsis, coagulopathy, altered mental status who is found to have abnormal EKG yesterday, possible acute myocardial infarction based on the EKG appearance, but only mild troponin leakage. PLAN: At this time, I have discussed the case with the ICU team. We will treat him conservatively at this point for his potential myocardial infarction and underlying coronary artery disease given his multiplicity of problems including coagulopathy, alcoholic liver disease, sepsis from pneumonia and empyema. I will repeat his EKG and troponins in the morning. He is being considered for VAT surgery. They are reluctant to give him aspirin and Plavix at this time. He has been hypotensive until recently. They are reluctant to give him metoprolol at this time. An echocardiogram is ordered. We will monitor I's and O's. We will follow along with you. We will make additional recommendations based on his clinical course. I will review the echocardiogram as soon as it is done. Sina Darling MD [facility]
--- NOTE | 2017-04-29 21:15 | PN ---
DATE: SUBJECTIVE: The patient is a 76-year-old, seen and examined, remain on vent and sedated. Had family by the bedside. Last night events noted. On EKG, he was found to have ischemic changes. Currently, doing well. He was evaluated by thoracic surgeon. Plan is to have thoracotomy on . Awaiting echo report. PHYSICAL EXAMINATION: VITAL SIGNS: The patient is afebrile, pulse 75, respirations 18, blood pressure 94/54, pulse ox on oxygen of 40%. LUNGS: Bilateral fair air flow, few soft in left lower lung region. HEART: S1 and S2 audible. ABDOMEN: Soft, nontender. No rebound, no guarding. NEUROLOGIC: He is sedated. LABORATORY EXAM: WBC is 12.9, hemoglobin 9.7, hematocrit 30, platelets 129. PT is 18.1, INR 1.63. Chemistry; sodium 145, potassium 4.6, chloride 117, CO2 of 22, BUN 13, creatinine 0.7, blood sugar of 137. Hepatitis profile is negative. ASSESSMENT AND PLAN: 1. Left lower lobe empyema, loculated status post chest tube placement. We will follow up CT, still has respiratory failure. 2. Sepsis. 3. Hypoxia. PLAN: We will follow up echocardiogram. We will continue on current antibiotic. Once seen by plumbing and heating contractor, we will make plan for thoracotomy day after tomorrow. Currently, he is on meropenem and he is on vancomycin and Zithromax. We will follow up this patient. Tony Ochoa MD
[2017-04-30 03:25] LABS: AMYLASE PLEURAL FLUID <10 U/L
[2017-04-30 06:07] LABS: ARTERIAL BLOOD GAS HCO3 18.6 mmol/L (21-28); ARTERIAL BLOOD GAS O2 CAPACITY 14.1 mL/dl (16-24); ARTERIAL BLOOD GAS O2 CONTENT 13.6 ML/dl (15-23); ARTERIAL BLOOD GAS PH 7.36 (7.35-7.45); ARTERIAL BLOOD HGB O2 SAT 94.1 % (95.0-98.0); CARBOXYHEMOGLOBIN 1.6 % (0.5-1.5); HHB 3.3 % (0-5); METHEMOGLOBIN 1.1 % (0.0-3.0)
[2017-04-30 06:21] LABS: BASO # 0.01 K/mm3 (0.0-2.0); GRAN # 21.81 (1.4-6.5); GRAN % 91.3 % (50.0-68.0); HEMATOCRIT 31.4 % (42.0-52.0); MEAN CELL VOLUME 97.2 fl (80.0-105.0); MEAN CORPUSCULAR HEMOGLOBIN 31.6 pg (25.0-35.0); MEAN CORPUSCULAR HGB CONC 32.5 g/dl (31.0-37.0); MEAN PLATELET VOLUME 10.3 fl (7.0-11.0); MONO # 1.1 (0.1-0.6); MONO % 4.7 % (1.0-6.0); RED CELL DISTRIBUTION WIDTH 15.3 % (11.5-14.5); WHITE BLOOD COUNT 23.9 10^3/ul (4.5-11.0)
[2017-04-30] MEDS: Meropenem 1 GM in Dextrose 5% In Water 100 ML IVPB SCH ×3 (06:24→21:33)
[2017-04-30 06:30] LABS: ALB/GLOB RATIO 0.9 (1.1-1.8); ALKALINE PHOSPHATASE 126 U/L (38-126); ALT/SGPT 45 U/L (7-56); AST/SGOT 44 U/L (17-59); BILIRUBIN,TOTAL 1.3 mg/dL (0.2-1.3); BLOOD UREA NITROGEN 33 mg/dL (7-21); CALCIUM 8.7 mg/dL (8.4-10.5); CARBON DIOXIDE 21 mmol/L (21-33); CHLORIDE 121 mmol/L (98-107); GFR AFRICAN-AMERICAN > 60; GLUCOSE,RANDOM 118 mg/dL (70-110); SODIUM 148 mmol/L (132-148); TOTAL PROTEIN 5.2 g/dL (5.8-8.3)
--- NOTE | 2017-04-30 06:50 | CP.CCUPN ---
CCU Subjective - Physician Review Subjective (Free Text): Patient seen and examined at bedside. Intubated and sedated. Opens eyes and moves extremities spontaneously. ROS cannot be attained due to altered mental status. 04/30/17 06:50 CCU Objective - Vital Signs / Intake & Output Vital Signs (Last 4 hours): Vital Signs Pulse 04/30/17 03:00 72 Intake and Output (Last 8hrs): Intake & Output 04/29/17 04/29/17 04/30/17 14:59 22:59 06:59 Intake Total 100 3735 Output Total 525 Balance 100 3210 Weight 183 lb Intake: IV 100 3275 ANTIBIOTIC 350 Right Internal Jugular 2468 VASOPRESSIN 27 Oral 100 Tube Feeding 360 Output: Chest Tube Drainage 100 Left Mid-Axillary Chest 100 Urine 425 Urethral (Yu) 425 - Physical Exam Head: Positive for: Atraumatic, Normocephalic Extroacular Muscles: Positive for: Other (senile archus) Conjunctiva: Positive for: Normal Ears: Positive for: Normal Mouth: Positive for: Moist Mucous Membranes, Other (OGT in place, ET tube in place with bite lock) Pharnyx: Negative for: ERYTHEMA, EXUDATE Nose (External): Positive for: Atraumatic Neck: Positive for: Trachea Midline. Negative for: Meningeal Signs Respiratory/Chest: Positive for: Good Air Exchange. Negative for: Respiratory Distress, Wheezes, Rales, Rhonchi Cardiovascular: Positive for: Normal S1, S2. Negative for: Murmurs, Rub, Gallop Abdomen: Positive for: Normal Bowel Sounds. Negative for: Tenderness, Distention Back: Negative for: CVA Tenderness Upper Extremity: Positive for: Normal Inspection. Negative for: Cyanosis, Edema , Tenderness Lower Extremity: Positive for: Normal Inspection. Negative for: Edema, CALF TENDERNESS Neurological: Positive for: Other (intubated and sedated) Skin: Positive for: Warm, Dry Psychiatric: Positive for: Other (intubated and sedated) - Medications Active Medications: Active Medications Generic Name Dose Route Start Last Admin Trade Name Freq PRN Reason Stop Dose Admin Acetaminophen 650 mg 04/23/17 16:13 Tylenol 325mg Tab PO Q6H PRN Fever >100.4 F Albuterol/Ipratropium 3 ml 04/23/17 20:00 04/29/17 19:44 Duoneb 3 Mg/0.5 Mg (3 Ml) Ud IH 3 ml [id number] CEM Administration Albuterol/Ipratropium 3 ml 04/23/17 16:13 04/24/17 23:34 Duoneb 3 Mg/0.5 Mg (3 Ml) Ud IH 3 ml Q2H PRN Administration Shortness of Breath Albuterol/Ipratropium 3 ml 04/25/17 00:07 04/25/17 00:30 Duoneb 3 Mg/0.5 Mg (3 Ml) Ud IH 3 ml Q2H PRN Administration Shortness of Breath Chlorhexidine Gluconate 15 ml 04/26/17 18:00 04/29/17 18:27 Peridex PO 15 ml BID CEM Administration Folic Acid 1 mg 04/27/17 12:00 04/29/17 09:30 Folic Acid PO 1 mg DAILY CEM Administration Guaifenesin/Dextromethorphan 5 ml 04/24/17 19:29 Robitussin Dm PO Q6H PRN Cough Hydrocortisone Sodium Succinate 50 mg 04/29/17 09:45 04/29/17 22:17 Solu-Cortef IVP 50 mg Q12H CEM Administration Azithromycin 500 mg in 250 mls @ 167 mls/hr 04/24/17 10:00 04/29/17 09:30 Zithromax 500mg In Ns IVPB 167 mls/hr DAILY CEM Administration Protocol Fentanyl Citrate 1,000 mcg in 100 mls @ 2 mls/hr 04/25/17 12:01 04/29/17 22: 38 Fentanyl Citrate/Sodium Chloride 1 Mg/100 Ml IV 200 mcg/hr .Q24H PRN 20 mls/hr TITRATE PER MD ORDER Administration Protocol 20 MCG/HR Norepinephrine Bitartrate 8 mg 258 mls @ 7.74 mls/hr 04/25/17 22:48 04/29/17 23:07 / Sodium Chloride IV 4 mcg/min .Q24H PRN 7.74 mls/hr TITRATE PER PROTOCOL Administration Protocol 4 MCG/MIN Meropenem 1 gm/ Dextrose 100 mls @ 100 mls/hr 04/27/17 14:00 04/30/17 06:24 IVPB 05/06/17 14:01 100 mls/hr Q8 CEM Administration Protocol Potassium Chloride 20 meq/ 1,010 mls @ 100 mls/hr 04/27/17 16:45 04/29/17 15: 54 Sodium Chloride IV 100 mls/hr .Q10H6M CEM Administration Dexmedetomidine HCl 400 mcg in 100 mls @ 4.15 mls/hr 04/29/17 14:58 04/29/17 15:26 Precedex 4 Mcg/Ml (100 Ml) IV 0.2 mcg/kg/hr .Q24H PRN 4.15 mls/hr Agitation Administration Protocol 0.2 MCG/KG/HR Midazolam HCl 2 mg 04/29/17 09:28 04/29/17 14:55 Versed Inj IVP 2 mg Q2 PRN Administration Agitation Multivitamins/Minerals 1 tab 04/26/17 12:00 04/29/17 08:11 Therapeutic-M Tab PO 1 tab 0800 CEM Administration Ondansetron HCl 4 mg 04/23/17 16:13 Zofran Inj IVP Q6H PRN Nausea/Vomiting Pantoprazole Sodium 40 mg 04/23/17 16:15 04/29/17 09:30 Protonix Inj IVP 40 mg DAILY CEM Administration - Patient Studies Lab Studies: Lab Studies 04/30/17 04/30/17 04/30/17 Range/Units 06:02 05:20 05:20 WBC 23.9 H D (4.5-11.0) 10^3/ul RBC 3.23 L (3.5-6.1) 10^6/uL Hgb 10.2 L (14.0-18.0) g/dL Hct 31.4 L (42.0-52.0) % MCV 97.2 (80.0-105.0) fl MCH 31.6 (25.0-35.0) pg MCHC 32.5 (31.0-37.0) g/dl RDW 15.3 H (11.5-14.5) % Plt Count 136 (120.0-450.0) 10^3/uL MPV 10.3 (7.0-11.0) fl Gran % 91.3 H (50.0-68.0) % Lymph % (Auto) 4.0 L (22.0-35.0) % Crane % (Auto) 4.7 (1.0-6.0) % Eos % (Auto) 0.0 L (1.5-5.0) % Baso % (Auto) 0.0 (0.0-3.0) % Gran # 21.81 H (1.4-6.5) Lymph # 1.0 L (1.2-3.4) Crane # 1.1 H (0.1-0.6) Eos # 0.0 (0.0-0.7) Baso # 0.01 (0.0-2.0) K/mm3 pCO2 33 L (35-45) mm/Hg pO2 71.0 L (80-100) mm/Hg HCO3 18.6 L (21-28) mmol/L ABG pH 7.36 (7.35-7.45) ABG Total CO2 19.6 L (22-28) mmol.L ABG O2 Saturation 96.6 (95-98) % ABG O2 Content 13.6 L (15-23) ML/dl ABG Base Excess -6.1 L (-2.0-3.0) mmol/L ABG Hemoglobin 10.2 L (11.7-17.4) g/dL ABG Carboxyhemoglobin 1.6 H (0.5-1.5) % POC ABG HHb (Measured) 3.3 (0-5) % ABG Methemoglobin 1.1 (0.0-3.0) % ABG O2 Capacity 14.1 L (16-24) mL/dl Hgb O2 Saturation 94.1 L (95.0-98.0) % FiO2 40.0 % Sodium 148 (132-148) mmol/L Potassium 5.0 (3.6-5.0) mmol/L Chloride 121 H (98-107) mmol/L Carbon Dioxide 21 (21-33) mmol/L Anion Gap 11 (10-20) BUN 33 H (7-21) mg/dL Creatinine 0.8 (0.8-1.5) mg/dL Est GFR ( Amer) > 60 Est GFR (Non-Af Amer) > 60 Random Glucose 118 H (70-110) mg/dL Calcium 8.7 (8.4-10.5) mg/dL Total Bilirubin 1.3 (0.2-1.3) mg/dL AST 44 (17-59) U/L ALT 45 (7-56) U/L Alkaline Phosphatase 126 (38-126) U/L Total Protein 5.2 L (5.8-8.3) g/dL Albumin 2.5 L (3.0-4.8) g/dL Globulin 2.7 gm/dL Albumin/Globulin Ratio 0.9 L (1.1-1.8) Pleural Total Protein g/dL Pleural LDH Pleural Glucose mg/dL Pleural Amylase U/L Pleural Cholesterol mg/dL Pleural Triglycerides mg/dL 04/25/17 Range/Units 18:17 WBC (4.5-11.0) 10^3/ul RBC (3.5-6.1) 10^6/uL Hgb (14.0-18.0) g/dL Hct (42.0-52.0) % MCV (80.0-105.0) fl MCH (25.0-35.0) pg MCHC (31.0-37.0) g/dl RDW (11.5-14.5) % Plt Count (120.0-450.0) 10^3/uL MPV (7.0-11.0) fl Gran % (50.0-68.0) % Lymph % (Auto) (22.0-35.0) % Crane % (Auto) (1.0-6.0) % Eos % (Auto) (1.5-5.0) % Baso % (Auto) (0.0-3.0) % Gran # (1.4-6.5) Lymph # (1.2-3.4) Crane # (0.1-0.6) Eos # (0.0-0.7) Baso # (0.0-2.0) K/mm3 pCO2 (35-45) mm/Hg pO2 (80-100) mm/Hg HCO3 (21-28) mmol/L ABG pH (7.35-7.45) ABG Total CO2 (22-28) mmol.L ABG O2 Saturation (95-98) % ABG O2 Content (15-23) ML/dl ABG Base Excess (-2.0-3.0) mmol/L ABG Hemoglobin (11.7-17.4) g/dL ABG Carboxyhemoglobin (0.5-1.5) % POC ABG HHb (Measured) (0-5) % ABG Methemoglobin (0.0-3.0) % ABG O2 Capacity (16-24) mL/dl Hgb O2 Saturation (95.0-98.0) % FiO2 % Sodium (132-148) mmol/L Potassium (3.6-5.0) mmol/L Chloride (98-107) mmol/L Carbon Dioxide (21-33) mmol/L Anion Gap (10-20) BUN (7-21) mg/dL Creatinine (0.8-1.5) mg/dL Est GFR ( Amer) Est GFR (Non-Af Amer) Random Glucose (70-110) mg/dL Calcium (8.4-10.5) mg/dL Total Bilirubin (0.2-1.3) mg/dL AST (17-59) U/L ALT (7-56) U/L Alkaline Phosphatase (38-126) U/L Total Protein (5.8-8.3) g/dL Albumin (3.0-4.8) g/dL Globulin gm/dL Albumin/Globulin Ratio (1.1-1.8) Pleural Total Protein 4.2 g/dL Pleural LDH see note Pleural Glucose <10 L mg/dL Pleural Amylase <10 U/L Pleural Cholesterol 23 mg/dL Pleural Triglycerides 31 mg/dL Laboratory Results - last 24 hr 04/25/17 04/30/17 04/30/17 18:17 05:20 05:20 WBC 23.9 H D RBC 3.23 L Hgb 10.2 L Hct 31.4 L MCV 97.2 MCH 31.6 MCHC 32.5 RDW 15.3 H Plt Count 136 MPV 10.3 Gran % 91.3 H Lymph % (Auto) 4.0 L Crane % (Auto) 4.7 Eos % (Auto) 0.0 L Baso % (Auto) 0.0 Gran # 21.81 H Lymph # 1.0 L Crane # 1.1 H Eos # 0.0 Baso # 0.01 pCO2 pO2 HCO3 ABG pH ABG Total CO2 ABG O2 Saturation ABG O2 Content ABG Base Excess ABG Hemoglobin ABG Carboxyhemoglobin POC ABG HHb (Measured) ABG Methemoglobin ABG O2 Capacity Hgb O2 Saturation FiO2 Sodium 148 Potassium 5.0 Chloride 121 H Carbon Dioxide 21 Anion Gap 11 BUN 33 H Creatinine 0.8 Est GFR ( Amer) > 60 Est GFR (Non-Af Amer) > 60 Random Glucose 118 H Calcium 8.7 Total Bilirubin 1.3 AST 44 ALT 45 Alkaline Phosphatase 126 Total Protein 5.2 L Albumin 2.5 L Globulin 2.7 Albumin/Globulin Ratio 0.9 L Pleural Total Protein 4.2 Pleural LDH see note Pleural Glucose <10 L Pleural Amylase <10 Pleural Cholesterol 23 Pleural Triglycerides 31 04/30/17 06:02 WBC RBC Hgb Hct MCV MCH MCHC RDW Plt Count MPV Gran % Lymph % (Auto) Crane % (Auto) Eos % (Auto) Baso % (Auto) Gran # Lymph # Crane # Eos # Baso # pCO2 33 L pO2 71.0 L HCO3 18.6 L ABG pH 7.36 ABG Total CO2 19.6 L ABG O2 Saturation 96.6 ABG O2 Content 13.6 L ABG Base Excess -6.1 L ABG Hemoglobin 10.2 L ABG Carboxyhemoglobin 1.6 H POC ABG HHb (Measured) 3.3 ABG Methemoglobin 1.1 ABG O2 Capacity 14.1 L Hgb O2 Saturation 94.1 L FiO2 40.0 Sodium Potassium Chloride Carbon Dioxide Anion Gap BUN Creatinine Est GFR ( Amer) Est GFR (Non-Af Amer) Random Glucose Calcium Total Bilirubin AST ALT Alkaline Phosphatase Total Protein Albumin Globulin Albumin/Globulin Ratio Pleural Total Protein Pleural LDH Pleural Glucose Pleural Amylase Pleural Cholesterol Pleural Triglycerides EKG/Cardiology Studies: Cardiology / EKG Studies 04/29/17 07:41 EKG [ELECTROCARDIOGRAM] Stat Comment: Reason For Exam: acs 04/30/17 06:00 ELECTROCARDIOGRAM Routine Comment: Reason For Exam: [place] Fingerstick Blood Sugar Results: 46
[2017-04-30 06:52] LABS: TROPONIN I 0.35 ng/mL
[2017-04-30] MEDS: Albuterol-Ipratrop 3 mg / 0.5 (3 ml) UD IH SCH ×3 (07:14→20:32)
[2017-04-30] MEDS: Fentanyl 1000mcg/100ml NS 1,000 MCG/100 ML BAG IV PRN ×3 (08:01→21:20)
--- NOTE | 2017-04-30 08:27 | CARD ---
APPROVED REPORT EXAM: Two-dimensional and M-mode echocardiogram with Doppler and color Doppler. INDICATION 2D DIMENSIONS IVSd1.1 (0.7-1.1cm)LVDd4.5 (3.9-5.9cm) PWd1.1 (0.7-1.1cm)LVDs3.5 (2.5-4.0cm) FS (%) 22.2 %LVEF (%)45.0 (>50%) M-Mode DIMENSIONS Left Atrium (MM)4.80 (2.5-4.0cm)Aortic Root3.10 (2.2-3.7cm) Aortic Cusp Exc.1.70 (1.5-2.0cm) Aortic Valve AoV Peak Xucjplbh766.0cm/Amandeep Peak GR.10mmHg Mitral Valve MV E Ycjoowak25.9cm/sMV A Jecrflxe55.3cm/sE/A ratio1.4 TDI Lateral E' Peak V8.58cm/sMedial E' Peak V8.97cm/sE/Lateral E'9.5 E/Medial E'9.1 Tricuspid Valve TR Peak [id number]/sRAP [id number] Peak Gr.27mmHg [id number] <Conclusion> Technically limited study. Patient supine, intubated in CCU with chest tube in place. Dilated RA and LA. LV size and systolic function appear within normal range. Mild TR. No other gross valvular abnormalities seen.
[2017-04-30] MEDS: Multivitamin With Minerals Tab PO SCH (09:00)
--- NOTE | 2017-04-30 09:55 | CP.PCM.PN ---
Subjective - Date & Time of Evaluation Date of Evaluation: 04/30/17 Time of Evaluation: 09:10 - Subjective Subjective: Still intubated, sedated, no fevers overnight, having right IJ CVC removed and PICC line placed. Objective - Vital Signs/Intake and Output Vital Signs (last 24 hours): Temp Pulse Resp BP Pulse Ox 97.3 F L 72 18 135/81 97 04/29/17 16:00 04/30/17 03:00 04/30/17 00:00 04/30/17 00:07 04/30/17 00:07 Intake and Output: 04/29/17 04/30/17 18:59 06:59 Intake Total 3735 100 Output Total 525 Balance 3210 100 - Medications Medications: Current Medications Acetaminophen (Tylenol 325mg Tab) 650 mg PO Q6H PRN PRN Reason: Fever >100.4 F Albuterol/Ipratropium (Duoneb 3 Mg/0.5 Mg (3 Ml) Ud) 3 ml IH [id number] [facility] Last Admin: 04/29/17 19:44 Dose: 3 ml Albuterol/Ipratropium (Duoneb 3 Mg/0.5 Mg (3 Ml) Ud) 3 ml IH Q2H PRN PRN Reason: Shortness of Breath Last Admin: 04/24/17 23:34 Dose: 3 ml Albuterol/Ipratropium (Duoneb 3 Mg/0.5 Mg (3 Ml) Ud) 3 ml IH Q2H PRN PRN Reason: Shortness of Breath Last Admin: 04/25/17 00:30 Dose: 3 ml Chlorhexidine Gluconate (Peridex) 15 ml PO BID [facility] Last Admin: 04/29/17 18:27 Dose: 15 ml Folic Acid (Folic Acid) 1 mg PO DAILY [facility] Last Admin: 04/29/17 09:30 Dose: 1 mg Guaifenesin/Dextromethorphan (Robitussin Dm) 5 ml PO Q6H PRN PRN Reason: Cough Hydrocortisone Sodium Succinate (Solu-Cortef) 50 mg IVP Q12H [facility] Last Admin: 04/29/17 22:17 Dose: 50 mg Azithromycin (Zithromax 500mg In Ns) 500 mg in 250 mls @ 167 mls/hr IVPB DAILY [facility] PRN Reason: Protocol Last Admin: 04/29/17 09:30 Dose: 167 mls/hr Fentanyl Citrate (Fentanyl Citrate/Sodium Chloride 1 Mg/100 Ml) 1,000 mcg in 100 mls @ 2 mls/hr IV .Q24H PRN; Protocol; 20 MCG/HR PRN Reason: TITRATE PER MD ORDER Last Admin: 04/29/17 22:38 Dose: 200 mcg/hr, 20 mls/hr Vancomycin HCl (Vancomycin 1gm) 1 gm in 250 mls @ 167 mls/hr IVPB Q12H [facility]EM PRN Reason: Protocol Last Admin: 04/29/17 18:51 Dose: 167 mls/hr Norepinephrine Bitartrate 8 mg (/ Sodium Chloride) 258 mls @ 7.74 mls/hr IV .Q24H PRN; Protocol; 4 MCG/MIN PRN Reason: TITRATE PER PROTOCOL Last Admin: 04/29/17 23:07 Dose: 4 mcg/min, 7.74 mls/hr Meropenem 1 gm/ Dextrose 100 mls @ 100 mls/hr IVPB Q8 [facility] PRN Reason: Protocol Stop: 05/06/17 14:01 Last Admin: 04/30/17 06:24 Dose: 100 mls/hr Potassium Chloride 20 meq/ (Sodium Chloride) 1,010 mls @ 100 mls/hr IV .Q10H6M [facility] Last Admin: 04/29/17 15:54 Dose: 100 mls/hr Dexmedetomidine HCl (Precedex 4 Mcg/Ml (100 Ml)) 400 mcg in 100 mls @ 4.15 mls/ hr IV .Q24H PRN; Protocol; 0.2 MCG/KG/HR PRN Reason: Agitation Last Admin: 04/29/17 15:26 Dose: 0.2 mcg/kg/hr, 4.15 mls/hr Midazolam HCl (Versed Inj) 2 mg IVP Q2 PRN PRN Reason: Agitation Last Admin: 04/29/17 14:55 Dose: 2 mg Multivitamins/Minerals (Therapeutic-M Tab) 1 tab PO 0800 [facility] Last Admin: 04/29/17 08:11 Dose: 1 tab Ondansetron HCl (Zofran Inj) 4 mg IVP Q6H PRN PRN Reason: Nausea/Vomiting Pantoprazole Sodium (Protonix Inj) 40 mg IVP DAILY [facility] Last Admin: 04/29/17 09:30 Dose: 40 mg - Labs Labs: 04/30/17 05:20 04/29/17 04:00 PT 18.1 SECONDS (9.4-12.5) H 04/29/17 04:00 INR 1.63 (0.93-1.08) H 04/29/17 04:00 APTT 33.5 Seconds (25.1-36.5) 04/29/17 04:00 - Constitutional Appears: Other (intubated, sedated) - Head Exam Head Exam: NORMAL INSPECTION - ENT Exam Additional comments: ET tube in place - Respiratory Exam Respiratory Exam: Decreased Breath Sounds Additional comments: left sided chest tube in place - Cardiovascular Exam Cardiovascular Exam: +S1, +S2 - GI/Abdominal Exam GI & Abdominal Exam: Soft. absent: Tenderness Assessment and Plan - Assessment and Plan (Free Text) Plan: Assessment Severe sepsis with ventilator dependent respiratory failure due to left sided severe community-acquired aspiration pneumonia with left sided pleural effusion S/P thoracentesis and now S/P chest tube placement POD #5, slowly improving, now off vasopressors history of alcohol abuse hypothyroidism cataracts S/P left eye surgery HTN dementia Plan will start Zyvox as discussed with Dr. Araujo and continue Merrem and Zithromax day 7; blood cx and pleural fluid cx are negative; will continue monitor chest tube output (starting to decrease) follow up plan of cardiothoracic surgery for possible VATS - possibly tomorrow will continue to monitor clinically discussed with ICU team
[2017-04-30] MEDS: Chlorhexidine 0.12% Oral Sol 480 ml Bot PO SCH ×2 (09:59→17:41)
[2017-04-30] MEDS: Azithromycin 500MG/NS 250ml 500 MG/250 ML BAG IVPB SCH (10:04)
--- NOTE | 2017-04-30 10:35 | RAD ---
HISTORY: intubated COMPARISON: 04/29/2017 FINDINGS: LUNGS: TheHe coalescent patchy opacity consistent with patchy infiltrate with or without atelectasis appears contiguous with the left pleural reaction. Minimal increase opacity here. Possibly due to increased pleural effusion here is possible. Vague opacity probably layering small right pleural effusion on this portable semi-erect study is also suggested. PLEURA: As above. No pneumothorax. The left chest tube tip projects at the mid lung level medial aspect. CARDIOVASCULAR: Mild cardiomegaly-similar. Right internal jugular vein central line tip right caval atrial junction. x OSSEOUS STRUCTURES: No significant abnormalities. VISUALIZED UPPER ABDOMEN: Normal. OTHER FINDINGS: The endotracheal tube tip appears satisfactory approximate 3.5 cm from the richard. The NG tube tip projects more proximal over the expected mid esophagus than it did previously. Previously this projected in the distal esophagus. Recommend advancing the NG tube IMPRESSION: Persistent the NG tube tip in esophagus. Recommend advancing into the stomach. Findings and recommendations were called up to the coronary care unit and given to Rosa Isela on 04/30/2017 at 10:26 a.m. Persistent basal infiltrate minimal increase opacity here possibly attributed to increasing role effusions. Increasing bibasilar pleural effusions.
--- NOTE | 2017-04-30 11:07 | PN ---
DATE: 04/30/2017 SUBJECTIVE: The patient is seen at bedside. He is sedated on Precedex, currently 0.7 mcg/kg/hour, benzodiazepines on an as needed basis. He is on Levophed 2 mcg/minute. Vasopressin as well as midodrine p.o. will be started to expedite weaning off norepinephrine drip. The patient is on PRVC. Short-term pressure support trial was conducted, however, the patient failed. He still has some purulent secretion coming out of his endotracheal tube. He had about 80 mL of purulent secretion from the left chest tube. His urine output overnight (12 hours) was 400 mL. PHYSICAL EXAMINATION: VITAL SIGNS: Blood pressure 115/51, oxygen saturation 97% on 40% FiO2, respiratory rate 19, heart rate 90. The patient is afebrile. ENT: Head and neck atraumatic. LUNGS: Few crackles bibasilarly. Decreased breath sounds on the left side. HEART: Regular rhythm and rate. S1, S2 distant. ABDOMEN: Soft, nontender, nondistended. MUSCULOSKELETAL: No C/C/E. NEUROLOGIC: The patient was seen moving all extremities spontaneously. SKIN: Moist. PSYCHIATRIC: The patient is not following commands. DIAGNOSTIC DATA: Bedside [id number] echocardiogram revealed IVC diameter 1.8 cm without respiratory variation. (The patient is on positive pressure ventilation. If unable to wean off norepinephrine soon, we will give additional bolus of IV fluids). Chest x-ray showed continued left lower lobe infiltrate. LABORATORY DATA: WBC 23.9 up from 12.9, hemoglobin 10.2, platelet count 136. Sodium 148, potassium 5, chloride 121, carbon dioxide 21, BUN 33, creatinine 0.8, glucose 118, troponin 0.35 (relatively stable), AST 44, ALT 45. PH of empyema 6.5. Glucose less than 10, triglyceride 31, cholesterol 23. Hepatitis profile negative. HIV negative. ABG today 7.36/33/71 on 40% FiO2. MEDICATIONS: Tylenol p.r.n., DuoNeb every 6, chlorhexidine topical for oral hygiene, folic acid, hydrocortisone 50 mg IV q.12, meropenem, Versed p.r.n., midodrine 10 mg p.o. t.i.d., norepinephrine drip, Zofran p.r.n., Protonix, vasopressin, and azithromycin. ASSESSMENT/PLAN: This is a 76-year-old gentleman who is recovering from septic shock, however, still requires small dose of vasopressor support (norepinephrine 2 mcg/minute). The patient is continued to be on vasopressin. Stress dose steroids are being tapered. Midodrine p.o. added to expedite weaning off vasopressor support. Neurologic: The patient is sedated with Precedex. He is moving all extremities. We will try to optimize his circadian and sleep pattern. We will try to avoid benzodiazepines and opiates. We will control his pain. Pulmonary: We will try not to exceed 6 mL per predicted body weight of Vt and Pplat of 30 cmH20 to avoid progression into acute respiratory distress syndrome. We will continue with head of bed elevated to more then 35 degrees, We will continue with oral hygiene. The patient has a chest tube and empyema drainage improved. The patient is going for VATS thoracoscopy tomorrow. We will continue with broad-spectrum antibiotics. We will add GP coverage with good penetration into lungs and pleural space. We will continue with pulmonary toilet, bronchodilators. Once shock resolved, we will proceed with conservative fluid management. We will continue with deep venous thrombosis and gastrointestinal prophylaxis. Cardiovascular: The patient has resolving distributive shock. We will continue with tapering off norepinephrine. Vasopressin and p.o. midodrine were added. We will continue with tapering steroid taper. Troponin level is not getting incremental. Echocardiogram is pending. However, bedside [id number] echocardiogram did not reveal severe left or right ventricular systolic dysfunction. While I cannot rule out with 100% certainty primary cardiac event, it appears to be less likely than simple septic cardiomyopathy. Final decision about that will be deferred to Cardiology Service, Dr. Darling, who is on board. Aspirin and Plavix are held in anticipation of VATS procedure tomorrow. The patient only on subcu heparin for deep venous thrombosis prophylaxis. GI: The patient tolerates enteral nutrition well. He will be n.p.o. overnight for the procedure. The patient is on proton pump inhibitor for gastrointestinal prophylaxis. ID: The patient had spike in leukocytosis even though remains afebrile. Central line will be removed once PICC line is inserted. I will discuss adding vancomycin or linezolid to the patient's current regimen. Meropenem has anaerobic coverage as well. Meropenem will be administered over longer period of time (time dependent bacteriocidal activity). That will be discussed with Infectious Disease Service as well. I will were trend procalcitonin. Last procalcitonin was 3.81. The patient is going for VATS thoracoscopy for debridement and decortication tomorrow. Endocrine: We will continue to maintain blood glucose within 140-180 range according to night sugar trial. Addendum: Off of vaso and NE, BP 120/60. will stick to conservatvie fluid management if BP holds up. Added Zyvox to the regimen. CVL removed, new PICC is placed. NPO after midnight ccm time 40 min Emerson Araujo MD MTDD
[2017-04-30] MEDS: Linezolid 600 mg in D5W 300 ml 600 MG/300 ML BAG IVPB SCH ×2 (11:36→22:39)
--- NOTE | 2017-04-30 11:38 | CARD ---
APPROVED REPORT EKG Measurement Heart [id number] <Conclusion> Normal sinus rhythm ST & T wave abnormality, consider anterolateral ischemia Correlate Clinically.
--- NOTE | 2017-04-30 12:20 | CP.PCM.PN ---
Subjective - Date & Time of Evaluation Date of Evaluation: 04/30/17 Time of Evaluation: 12:17 - Subjective Subjective: General Surgery Progress Note for Dr. He This patient was seen and examined this AM at bedside. No acute events reported overnight. Patient is still intubated and sedated with family at bedside. Left chest tibe with 180cc. Plan for OR tomorrow AM. Objective - Vital Signs/Intake and Output Vital Signs (last 24 hours): Temp Pulse Resp BP Pulse Ox 97.3 F L 73 19 134/79 95 04/29/17 16:00 04/30/17 11:11 04/30/17 07:39 04/30/17 11:11 04/30/17 11:11 Intake and Output: 04/30/17 04/30/17 06:59 18:59 Intake Total 2500 66 Output Total 480 Balance 2020 66 - Medications Medications: Current Medications Acetaminophen (Tylenol 325mg Tab) 650 mg PO Q6H PRN PRN Reason: Fever >100.4 F Albuterol/Ipratropium (Duoneb 3 Mg/0.5 Mg (3 Ml) Ud) 3 ml IH [id number] [facility] Last Admin: 04/30/17 07:14 Dose: 3 ml Albuterol/Ipratropium (Duoneb 3 Mg/0.5 Mg (3 Ml) Ud) 3 ml IH Q2H PRN PRN Reason: Shortness of Breath Last Admin: 04/24/17 23:34 Dose: 3 ml Albuterol/Ipratropium (Duoneb 3 Mg/0.5 Mg (3 Ml) Ud) 3 ml IH Q2H PRN PRN Reason: Shortness of Breath Last Admin: 04/25/17 00:30 Dose: 3 ml Chlorhexidine Gluconate (Peridex) 15 ml PO BID [facility] Last Admin: 04/30/17 09:59 Dose: 15 ml Folic Acid (Folic Acid) 1 mg PO DAILY [facility] Last Admin: 04/30/17 10:14 Dose: 1 mg Guaifenesin/Dextromethorphan (Robitussin Dm) 5 ml PO Q6H PRN PRN Reason: Cough Heparin Sodium (Porcine) (Heparin) 5,000 units SC Q8 [facility] PRN Reason: Protocol Last Admin: 04/30/17 10:08 Dose: 5,000 units Hydrocortisone Sodium Succinate (Solu-Cortef) 50 mg IVP Q12H [facility] Last Admin: 04/30/17 10:05 Dose: 50 mg Azithromycin (Zithromax 500mg In Ns) 500 mg in 250 mls @ 167 mls/hr IVPB DAILY [facility] PRN Reason: Protocol Last Admin: 04/30/17 10:04 Dose: 167 mls/hr Fentanyl Citrate (Fentanyl Citrate/Sodium Chloride 1 Mg/100 Ml) 1,000 mcg in 100 mls @ 2 mls/hr IV .Q24H PRN; Protocol; 20 MCG/HR PRN Reason: TITRATE PER MD ORDER Last Admin: 04/30/17 08:01 Dose: 200 mcg/hr, 20 mls/hr Norepinephrine Bitartrate 8 mg (/ Sodium Chloride) 258 mls @ 7.74 mls/hr IV .Q24H PRN; Protocol; 4 MCG/MIN PRN Reason: TITRATE PER PROTOCOL Last Admin: 04/29/17 23:07 Dose: 4 mcg/min, 7.74 mls/hr Meropenem 1 gm/ Dextrose 100 mls @ 100 mls/hr IVPB Q8 [facility] PRN Reason: Protocol Stop: 05/06/17 14:01 Last Admin: 04/30/17 06:24 Dose: 100 mls/hr Potassium Chloride 20 meq/ (Sodium Chloride) 1,010 mls @ 100 mls/hr IV .Q10H6M [facility] Last Admin: 04/30/17 09:00 Dose: 100 mls/hr Dexmedetomidine HCl (Precedex 4 Mcg/Ml (100 Ml)) 400 mcg in 100 mls @ 4.15 mls/ hr IV .Q24H PRN; Protocol; 0.2 MCG/KG/HR PRN Reason: Agitation Last Titration: 04/30/17 10:22 Dose: 0.4 mcg/kg/hr, 8.301 mls/hr Vasopressin 20 units/ Sodium (Chloride) 101 mls @ 9.09 mls/hr IV .Q11H7M [facility]; 0.03 U/MIN PRN Reason: Protocol Last Admin: 04/30/17 10:10 Dose: 9.09 mls/hr Linezolid (Zyvox 600mg/300ml D5w) 600 mg in 300 mls @ 200 mls/hr IVPB Q12 [facility] PRN Reason: Protocol Stop: 05/07/17 10:01 Last Admin: 04/30/17 11:36 Dose: 200 mls/hr Midazolam HCl (Versed Inj) 2 mg IVP Q2 PRN PRN Reason: Agitation Last Admin: 04/29/17 14:55 Dose: 2 mg Midodrine (Proamatine) 10 mg PO TID [facility] Last Admin: 04/30/17 10:14 Dose: 10 mg Multivitamins/Minerals (Therapeutic-M Tab) 1 tab PO 0800 [facility] Last Admin: 04/30/17 09:00 Dose: 1 tab Ondansetron HCl (Zofran Inj) 4 mg IVP Q6H PRN PRN Reason: Nausea/Vomiting Pantoprazole Sodium (Protonix Inj) 40 mg IVP DAILY [facility] Last Admin: 04/30/17 10:06 Dose: 40 mg - Labs Labs: 04/30/17 05:20 04/30/17 05:20 PT 18.1 SECONDS (9.4-12.5) H 04/29/17 04:00 INR 1.63 (0.93-1.08) H 04/29/17 04:00 APTT 33.5 Seconds (25.1-36.5) 04/29/17 04:00 - Constitutional Appears: No Acute Distress - Head Exam Head Exam: ATRAUMATIC, NORMAL INSPECTION, NORMOCEPHALIC - Respiratory Exam Respiratory Exam: absent: Respiratory Distress Additional comments: vent, L CT to wall suction - Cardiovascular Exam Cardiovascular Exam: REGULAR RHYTHM - Neurological Exam Neurological Exam: Alert, Oriented x3 - Psychiatric Exam Psychiatric exam: Normal Affect, Normal Mood - Skin Skin Exam: Dry, Intact, Normal Color Assessment and Plan - Assessment and Plan (Free Text) Assessment: 76yo M with empyema s/p Left sided Chest Tube placement on 04/[address] to wall suction, monitor output Continue Iv Abx F/U Cardiology assessment Plan for OR tomorrow Will discuss with Dr. Ying Penaloza PGY2 [phone]
--- NOTE | 2017-04-30 12:25 | PN ---
DATE: 04/30/2017 SUBJECTIVE: The patient is seen lying in bed in the ICU. He remains intubated and unresponsive at the present time. He has had transient hypotension and is currently on vasopressin. PHYSICAL EXAMINATION GENERAL: He is an elderly man who appears critically ill. VITAL SIGNS: His blood pressure is 134/70 with the pulse of 60 and sinus, respirations were 16. He is currently afebrile. HEENT: He is orally intubated. CARDIOPULMONARY: Distant sounds noted with systolic murmur in left sternal border. LUNGS: Bilateral coarse rhonchi heard worse on the left as compared to the right. ABDOMEN: Soft with bowel sounds present. EXTREMITIES: 1+ anasarca noted. DIAGNOSTIC DATA: Potassium 5.0, BUN and creatinine 33 and 0.8. Troponin 0.35. White count 23.9, hemoglobin and hematocrit 10.2 and 31.4, and platelet count is 136,000. Arterial blood gas showed pH of 7.36, pCO2 of 33, and pO2 of 71 on 40% FiO2. Electrocardiogram reveals sinus rhythm with QT prolongation and nonspecific ST abnormalities. CURRENT MEDICATIONS: Include albuterol inhaler, fentanyl, subcutaneous heparin, meropenem, Levophed, vasopressin, midodrine, Protonix, Solu-Cortef, Zithromax, and Zyvox. IMPRESSION: 1. Septic shock on broad-spectrum antibiotics, pressor dependent at this time. 2. Respiratory failure with persistent purulent drainage from his chest tube. Plans are being made for possible thoracoscopy and decortication. 3. Abnormal electrocardiogram and mildly elevated troponin, possibly due to mild ST elevations and myocardial fraction, but also may be due to secondary causes given his critical illness. 4. History of coagulopathy and liver disease. RECOMMENDATIONS: Continued conservative cardiac medications is advised at the present time. Supportive measures are advised. If decortication and thoracoscopy are felt necessary, I will proceed without further cardiac workup given the critical nature of his illness. We will continue to follow and make further recommendations as appropriate. Keith Reeves MD
--- NOTE | 2017-04-30 12:58 | RAD ---
HISTORY: OG placement COMPARISON: 04/30/2017 FINDINGS: LUNGS: The prior coalescent patchy opacity consistent with patchy coalescing infiltrate at the left lung base contiguous with left inferolateral pleural reaction thickening appears similar. PLEURA: The left pleural effusion/ thickening is similar The left mid lung zone medial chest tube tip position is as before. No pneumothorax noted. CARDIOVASCULAR: CardiomegalyRight internal jugular vein central line tip right caval atrial junction as before. Central pulmonary vasculature probably mildly increased conspicuity and or slightly increased since the prior exam. OSSEOUS STRUCTURES: No significant abnormalities. VISUALIZED UPPER ABDOMEN: Normal. OTHER FINDINGS: Endotracheal tube tip approximately 2 cm not the richard. The prior NG tube has been advanced at least coursing along the gastric body -the actual tip is beyond the inferior edge of this image IMPRESSION: Interval advancement of the NG tube now coursing in/over the stomach Endotracheal tube tip 2 cm from the richard Right internal jugular vein central line right atrium as before. Medial left chest tube tip as before no pneumothorax. Basal coalescing patchy infiltrates a blending left inferolateral pleural thickening/mild pleural fluid send Central pulmonary vasculature -probably mildly increased.
[2017-04-30] MEDS ORDERED: Sodium Chloride 0.9% 1,000 ML IV STA (17:15)
--- NOTE | 2017-04-30 21:51 | PN ---
DATE: SUBJECTIVE: The patient is a 76-year-old, remains intubated and sedated. Opens eye on painful stimuli. PHYSICAL EXAMINATION VITAL SIGNS: He is afebrile, pulse 58, respirations 18 and blood pressure 133/81. LUNGS: Bilateral fair airflow, few soft crackles in upper lung region. HEART: S1 and S2 audible. ABDOMEN: Soft and nontender. No rebound. No guarding. NEUROLOGIC: He is sedated. LABORATORY DATA: WBC 23.9, hemoglobin 10, hematocrit 31 and platelet 136. Chemistry; sodium 148, potassium 5, chloride 121, CO2 of 21, BUN 33, creatinine 0.8 and blood sugar of 118. ASSESSMENT: 1. Respiratory failure. 2. Left lower lung effusion, loculated. 3. Anemia. 4. Leukocytosis. 5. Hypotension. PLAN: The patient will go for VAT in a.m.. We will continue current antibiotics. Continue vent support. We will followup CBC and CMP in a.m. Tony Ochoa MD
[2017-04-30] MEDS: Midazolam 2 MG/2 ML VIAL IVP PRN (22:05)
[2017-04-30] MEDS ORDERED: Vitamin A/D oint 60G TP PRN (23:48)
[2017-05-01] MEDS: Midazolam 2 MG/2 ML VIAL IVP PRN (02:03)
[2017-05-01] MEDS: Dexmedetomidine HCl 4mcg/ml 400 MCG/100 ML BOTTLE IV PRN ×3 (03:11→20:09)
[2017-05-01] MEDS: Meropenem 1 GM in Dextrose 5% In Water 100 ML IVPB SCH ×3 (05:27→22:16)
[2017-05-01] MEDS: Fentanyl 1000mcg/100ml NS 1,000 MCG/100 ML BAG IV PRN (06:14)
[2017-05-01 06:46] LABS: BASO # 0.03 K/mm3 (0.0-2.0); BASO % 0.1 % (0.0-3.0); GRAN # 19.12 (1.4-6.5); GRAN % 92.1 % (50.0-68.0); HEMATOCRIT 31.2 % (42.0-52.0); LYMPH # 0.6 (1.2-3.4); LYMPH % 2.7 % (22.0-35.0); MEAN CELL VOLUME 96.9 fl (80.0-105.0); MEAN PLATELET VOLUME 10.6 fl (7.0-11.0); MONO # 1.1 (0.1-0.6); MONO % 5.1 % (1.0-6.0); RED CELL DISTRIBUTION WIDTH 15.4 % (11.5-14.5); WHITE BLOOD COUNT 20.8 10^3/ul (4.5-11.0)
[2017-05-01 06:49] LABS: INR 1.56 (0.93-1.08); PARTIAL THROMBOPLASTIN TIME 32.5 Seconds (25.1-36.5)
[2017-05-01 07:00] LABS: ALB/GLOB RATIO 0.8 (1.1-1.8); ALKALINE PHOSPHATASE 160 U/L (38-126); ALT/SGPT 52 U/L (7-56); AST/SGOT 46 U/L (17-59); BILIRUBIN,TOTAL 1.5 mg/dL (0.2-1.3); BLOOD UREA NITROGEN 32 mg/dL (7-21); CALCIUM 8.5 mg/dL (8.4-10.5); CARBON DIOXIDE 20 mmol/L (21-33); CHLORIDE 120 mmol/L (98-107); GFR AFRICAN-AMERICAN > 60; GLUCOSE,RANDOM 149 mg/dL (70-110); POTASSIUM 4.3 mmol/L (3.6-5.0); SODIUM 145 mmol/L (132-148); TOTAL PROTEIN 4.8 g/dL (5.8-8.3)
[2017-05-01] MEDS: Albuterol-Ipratrop 3 mg / 0.5 (3 ml) UD IH SCH ×3 (07:18→20:03)
--- NOTE | 2017-05-01 07:26 | CP.CCUPN ---
<Reece Abel - Last Filed: 05/01/17 13:22> CCU Subjective - Physician Review Events Since Last Encounter (Free Text): 05/01/17 07:[address] Araujo Pt seen and examined at bedside. Patient intubated and sedated. Currently on precedex and fentanyl for sedation. Left-sided CT dressing site with serosang drainage noted. No acute events reported overnight as per nursing staff. Chest Tube with 500cc/12 hrs of serrosang fluid. UOP 370/12hrs. CCU Objective - Vital Signs / Intake & Output Vital Signs (Last 4 hours): Vital Signs Pulse BP Pulse Ox 05/01/17 06:35 70 102/60 99 05/01/17 06:34 83 109/60 98 05/01/17 06:30 82 98 05/01/17 06:20 90 98 05/01/17 06:10 94 H 98 05/01/17 06:00 100 H 99 05/01/17 05:52 97 H 05/01/17 05:51 96 H 05/01/17 05:50 92 H 98 05/01/17 05:45 93 H 05/01/17 05:43 91 H 05/01/17 05:42 93 H 05/01/17 05:41 92 H 05/01/17 05:37 93 H 05/01/17 05:36 93 H 05/01/17 05:35 93 H 05/01/17 05:34 91 H 05/01/17 05:33 95 H 05/01/17 05:32 98 H 05/01/17 05:31 100 H 05/01/17 05:30 124/86 05/01/17 05:29 105 H 05/01/17 05:28 104 H 05/01/17 05:27 102 H 05/01/17 05:26 98 H 05/01/17 05:25 95 H 05/01/17 05:24 114/66 05/01/17 05:23 99 H 05/01/17 05:22 100 H 05/01/17 05:21 99 H 05/01/17 05:20 99 H 05/01/17 05:19 102 H 05/01/17 05:18 105 H 05/01/17 05:10 109 H 99 05/01/17 05:00 108 H 147/85 96 05/01/17 04:50 90 98 05/01/17 04:40 92 H 98 05/01/17 04:30 110/60 05/01/17 04:29 97 H 98 05/01/17 04:20 96 H 98 05/01/17 03:30 94 H Intake and Output (Last 8hrs): Intake & Output 04/30/17 05/01/17 05/01/17 22:59 06:59 14:59 Intake Total 174 1982 Output Total 480 900 Balance -306 1082 Weight 175 lb 1.6 oz Intake: IV 174 1832 ANTIBIOTIC 500 Right Internal Jugular 1200 Tube Feeding 150 Output: Chest Tube Drainage 105 500 Left Mid-Axillary Chest 105 500 Urine 375 400 Urethral (Yu) 375 400 - Physical Exam Head: Positive for: Atraumatic, Normocephalic Extroacular Muscles: Positive for: Other (senile archus) Conjunctiva: Positive for: Normal Ears: Positive for: Normal Mouth: Positive for: Moist Mucous Membranes, Other (OGT in place, ET tube in place with bite lock) Pharnyx: Negative for: ERYTHEMA, EXUDATE Nose (External): Positive for: Atraumatic Neck: Positive for: Trachea Midline. Negative for: Meningeal Signs Respiratory/Chest: Positive for: Good Air Exchange, Decreased Breath Sounds (on left base). Negative for: Respiratory Distress, Wheezes, Rales, Rhonchi Cardiovascular: Positive for: Normal S1, S2. Negative for: Murmurs, Rub, Gallop Abdomen: Positive for: Normal Bowel Sounds. Negative for: Tenderness, Distention Back: Negative for: CVA Tenderness Upper Extremity: Positive for: Normal Inspection. Negative for: Cyanosis, Edema , Tenderness Lower Extremity: Positive for: Normal Inspection. Negative for: Edema, CALF TENDERNESS Neurological: Positive for: Other (intubated and sedated) Skin: Positive for: Warm, Dry Psychiatric: Positive for: Other (intubated and sedated) - Medications Active Medications: Active Medications Generic Name Dose Route Start Last Admin Trade Name Freq PRN Reason Stop Dose Admin Acetaminophen 650 mg 04/23/17 16:13 Tylenol 325mg Tab PO Q6H PRN Fever >100.4 F Albuterol/Ipratropium 3 ml 04/23/17 20:00 05/01/17 07:18 Duoneb 3 Mg/0.5 Mg (3 Ml) Ud IH 3 ml [id number] CEM Administration Albuterol/Ipratropium 3 ml 04/23/17 16:13 04/24/17 23:34 Duoneb 3 Mg/0.5 Mg (3 Ml) Ud IH 3 ml Q2H PRN Administration Shortness of Breath Albuterol/Ipratropium 3 ml 04/25/17 00:07 04/25/17 00:30 Duoneb 3 Mg/0.5 Mg (3 Ml) Ud IH 3 ml Q2H PRN Administration Shortness of Breath Chlorhexidine Gluconate 15 ml 04/26/17 18:00 04/30/17 17:41 Peridex PO 15 ml BID CEM Administration Folic Acid 1 mg 04/27/17 12:00 04/30/17 10:14 Folic Acid PO 1 mg DAILY CEM Administration Guaifenesin/Dextromethorphan 5 ml 04/24/17 19:29 Robitussin Dm PO Q6H PRN Cough Heparin Sodium (Porcine) 5,000 units 04/30/17 10:00 04/30/17 22:49 Heparin SC Not Given Q8 CEM Protocol Hydrocortisone Sodium Succinate 50 mg 04/29/17 09:45 04/30/17 21:26 Solu-Cortef IVP 50 mg Q12H CEM Administration Azithromycin 500 mg in 250 mls @ 167 mls/hr 04/24/17 10:00 04/30/17 10:04 Zithromax 500mg In Ns IVPB 167 mls/hr DAILY CEM Administration Protocol Norepinephrine Bitartrate 8 mg 258 mls @ 7.74 mls/hr 04/25/17 22:48 04/30/17 15:24 / Sodium Chloride IV 0 mcg/min .Q24H PRN 0 mls/hr TITRATE PER PROTOCOL Titration Protocol 4 MCG/MIN Meropenem 1 gm/ Dextrose 100 mls @ 100 mls/hr 04/27/17 14:00 05/01/17 05:27 IVPB 05/06/17 14:01 100 mls/hr Q8 CEM Administration Protocol Potassium Chloride 20 meq/ 1,010 mls @ 100 mls/hr 04/27/17 16:45 04/30/17 15: 36 Sodium Chloride IV 100 mls/hr .Q10H6M CEM Administration Dexmedetomidine HCl 400 mcg in 100 mls @ 4.15 mls/hr 04/29/17 14:58 05/01/17 04:44 Precedex 4 Mcg/Ml (100 Ml) IV 0.7 mcg/kg/hr .Q24H PRN 14.526 mls/hr Agitation Titration Protocol 0.2 MCG/KG/HR Vasopressin 20 units/ Sodium 101 mls @ 9.09 mls/hr 04/30/17 08:00 04/30/17 10 :10 Chloride IV 9.09 mls/hr .Q11H7M CEM Administration Protocol 0.03 U/MIN Linezolid 600 mg in 300 mls @ 200 mls/hr 04/30/17 10:00 04/30/17 22:39 Zyvox 600mg/300ml D5w IVPB 05/07/17 10:01 200 mls/hr Q12 CEM Administration Protocol Fentanyl Citrate 1,000 mcg in 100 mls @ 2 mls/hr 04/30/17 18:38 05/01/17 06: 14 Fentanyl Citrate/Sodium Chloride 1 Mg/100 Ml IV 100 mcg/hr .Q24H PRN 10 mls/hr TITRATE PER MD ORDER Administration Protocol 20 MCG/HR Midazolam HCl 2 mg 04/29/17 09:28 05/01/17 02:03 Versed Inj IVP 2 mg Q2 PRN Administration Agitation Midodrine 10 mg 04/30/17 10:00 04/30/17 17:41 Proamatine PO 10 mg TID CEM Administration Multivitamins/Minerals 1 tab 04/26/17 12:00 04/30/17 09:00 Therapeutic-M Tab PO 1 tab 0800 CEM Administration Ondansetron HCl 4 mg 04/23/17 16:13 Zofran Inj IVP Q6H PRN Nausea/Vomiting Pantoprazole Sodium 40 mg 04/23/17 16:15 04/30/17 10:06 Protonix Inj IVP 40 mg DAILY CEM Administration Vitamin A 1 applic 04/30/17 23:48 Vitamin A&D TP Q8 PRN dry, cracked lips - Patient Studies Lab Studies: Lab Studies 05/01/17 05/01/17 05/01/17 Range/Units 06:20 06:20 06:20 WBC 20.8 H (4.5-11.0) 10^3/ul RBC 3.22 L (3.5-6.1) 10^6/uL Hgb 10.3 L (14.0-18.0) g/dL Hct 31.2 L (42.0-52.0) % MCV 96.9 (80.0-105.0) fl MCH 32.0 (25.0-35.0) pg MCHC 33.0 (31.0-37.0) g/dl RDW 15.4 H (11.5-14.5) % Plt Count 116 L (120.0-450.0) 10^3/uL MPV 10.6 (7.0-11.0) fl Gran % 92.1 H (50.0-68.0) % Lymph % (Auto) 2.7 L (22.0-35.0) % [place] % (Auto) 5.1 (1.0-6.0) % Eos % (Auto) 0.0 L (1.5-5.0) % Baso % (Auto) 0.1 (0.0-3.0) % Gran # 19.12 H (1.4-6.5) Lymph # 0.6 L (1.2-3.4) [place] # 1.1 H (0.1-0.6) Eos # 0.0 (0.0-0.7) Baso # 0.03 (0.0-2.0) K/mm3 PT 17.3 H (9.4-12.5) SECONDS INR 1.56 H (0.93-1.08) APTT 32.5 (25.1-36.5) Seconds Sodium 145 (132-148) mmol/L Potassium 4.3 (3.6-5.0) mmol/L Chloride 120 H (98-107) mmol/L Carbon Dioxide 20 L (21-33) mmol/L Anion Gap 9 L (10-20) BUN 32 H (7-21) mg/dL Creatinine 0.8 (0.8-1.5) mg/dL Est GFR ( Amer) > 60 Est GFR (Non-Af Amer) > 60 Random Glucose 149 H (70-110) mg/dL Calcium 8.5 (8.4-10.5) mg/dL Total Bilirubin 1.5 H (0.2-1.3) mg/dL AST 46 (17-59) U/L ALT 52 (7-56) U/L Alkaline Phosphatase 160 H D (38-126) U/L Total Protein 4.8 L (5.8-8.3) g/dL Albumin 2.2 L (3.0-4.8) g/dL Globulin 2.6 gm/dL Albumin/Globulin Ratio 0.8 L (1.1-1.8) Procalcitonin (0.19-0.49) NG/ML Blood Type Blood Type Confirm Antibody Screen Crossmatch BBK History Checked 04/30/17 04/30/17 04/30/17 Range/Units 20:38 18:47 10:20 WBC (4.5-11.0) 10^3/ul RBC (3.5-6.1) 10^6/uL Hgb (14.0-18.0) g/dL Hct (42.0-52.0) % MCV (80.0-105.0) fl MCH (25.0-35.0) pg MCHC (31.0-37.0) g/dl RDW (11.5-14.5) % Plt Count (120.0-450.0) 10^3/uL MPV (7.0-11.0) fl Gran % (50.0-68.0) % Lymph % (Auto) (22.0-35.0) % [place] % (Auto) (1.0-6.0) % Eos % (Auto) (1.5-5.0) % Baso % (Auto) (0.0-3.0) % Gran # (1.4-6.5) Lymph # (1.2-3.4) [place] # (0.1-0.6) Eos # (0.0-0.7) Baso # (0.0-2.0) K/mm3 PT (9.4-12.5) SECONDS INR (0.93-1.08) APTT (25.1-36.5) Seconds Sodium (132-148) mmol/L Potassium (3.6-5.0) mmol/L Chloride (98-107) mmol/L Carbon Dioxide (21-33) mmol/L Anion Gap (10-20) BUN (7-21) mg/dL Creatinine (0.8-1.5) mg/dL Est GFR ( Amer) Est GFR (Non-Af Amer) Random Glucose (70-110) mg/dL Calcium (8.4-10.5) mg/dL Total Bilirubin (0.2-1.3) mg/dL AST (17-59) U/L ALT (7-56) U/L Alkaline Phosphatase (38-126) U/L Total Protein (5.8-8.3) g/dL Albumin (3.0-4.8) g/dL Globulin gm/dL Albumin/Globulin Ratio (1.1-1.8) Procalcitonin 0.32 (0.19-0.49) NG/ML Blood Type O POSITIVE Blood Type Confirm O POSITIVE Antibody Screen Negative Crossmatch See Detail BBK History Checked No verified bt Laboratory Results - last 24 hr 04/30/17 04/30/17 04/30/17 10:20 18:47 20:38 WBC RBC Hgb Hct MCV MCH MCHC RDW Plt Count MPV Gran % Lymph % (Auto) [place] % (Auto) Eos % (Auto) Baso % (Auto) Gran # Lymph # [place] # Eos # Baso # PT INR APTT Sodium Potassium Chloride Carbon Dioxide Anion Gap BUN Creatinine Est GFR ( Amer) Est GFR (Non-Af Amer) Random Glucose Calcium Total Bilirubin AST ALT Alkaline Phosphatase Total Protein Albumin Globulin Albumin/Globulin Ratio Procalcitonin 0.32 Blood Type O POSITIVE Blood Type Confirm O POSITIVE Antibody Screen Negative Crossmatch See Detail BBK History Checked No verified bt 05/01/17 05/01/17 05/01/17 06:20 06:20 06:20 WBC 20.8 H RBC 3.22 L Hgb 10.3 L Hct 31.2 L MCV 96.9 MCH 32.0 MCHC 33.0 RDW 15.4 H Plt Count 116 L MPV 10.6 Gran % 92.1 H Lymph % (Auto) 2.7 L [place] % (Auto) 5.1 Eos % (Auto) 0.0 L Baso % (Auto) 0.1 Gran # 19.12 H Lymph # 0.6 L [place] # 1.1 H Eos # 0.0 Baso # 0.03 PT 17.3 H INR 1.56 H APTT 32.5 Sodium 145 Potassium 4.3 Chloride 120 H Carbon Dioxide 20 L Anion Gap 9 L BUN 32 H Creatinine 0.8 Est GFR ( Amer) > 60 Est GFR (Non-Af Amer) > 60 Random Glucose 149 H Calcium 8.5 Total Bilirubin 1.5 H AST 46 ALT 52 Alkaline Phosphatase 160 H D Total Protein 4.8 L Albumin 2.2 L Globulin 2.6 Albumin/Globulin Ratio 0.8 L Procalcitonin Blood Type Blood Type Confirm Antibody Screen Crossmatch BBK History Checked Fingerstick Blood Sugar Results: 46 Assessment/Plan - Assessment and Plan (Free Text) Assessment: 76yo M w/ PMHx of dementia, ETOH abuse, and HTN who was admitted to the ICU with sepsis secondary to left sided empyema, s/p chest tube/thoracenthesis on with immediate 1.5L of purulent fluid removed. Awaiting VATS/Thoracotomy today. Patient is maintained on ventilation and off of pressor support. Hospital course complicated with probable demand ischemia noted on 04/28. Neuro: History of dementia, currently intubated and sedated with fentanyl and precedex - opens eyes and moves extremities spontaneously Continue sedation vacation daily GCS 9 Cardio: improving septic shock, MAPs maintained > 65 off of pressor support EKG changes noted on 04/28; ASA/Plavix on hold due to plans for OR troponins trended, reviewed, and appreciated- possible demand ischemia VSS, hemodynamically stable ECHO - dilated RA, dilated LA. LVEF wnl Midodrine 10mg PO TID Cardiology following. Pulm: Large left sided pleural effusion with atelectasis on chest CT Patient intubated for airway protection- ABG reviewed on vent, PRVC, 40% FiO2, 5 PEEP, RR18 Continue Duonebs Continue azithromycin D8, meropenem D5, and Zyvox D2. (Zyvox started on 04/30) Cont aspiration precautions CT Surgery following, chest tube now draining 500cc/12 hours. VATS, possible Thoracotomy today by Dr. He GI: tube feeds held due to OR today Hyperbiliruinemia noted Protonix for prophylaxis Possible degree of liver dysfunction in the setting of ETOH abuse, coagulopathy noted Renal/Electrolytes: Cont strict I&O monitor and replete as needed ID: Sepsis improving, Left chest empyema likely source WBC trended, reviewed As above cont azithro/merrem/zyvox ID Dr. Shore following, recs appreciated Maintain euthermia Endo: Maintain euglycemia blood sugars between 140-180 Solu-cortef 50mg q12 Heme: hemoglobin trended, reviewed, and appreciated- stable INR 1.56; 1U FFP given. 1U on hold for procedure 2U PRBCs on hold for procedure SCDs Dispo: - Thoracotomy today by Dr. He, CT surgery Discussed case with Dr. Van Abel PGY1 <Emerson Araujo - Last Filed: 05/01/17 16:17> CCU Objective - Vital Signs / Intake & Output Vital Signs (Last 4 hours): Vital Signs Temp Pulse BP Pulse Ox 05/01/17 16:09 91 H 101/55 L 92 L 05/01/17 16:00 96.8 F L 05/01/17 13:38 61 146/84 100 05/01/17 12:37 62 146/87 100 05/01/17 12:30 71 107/50 L 100 05/01/17 12:29 71 141/79 100 05/01/17 12:20 69 100 Intake and Output (Last 8hrs): Intake & Output 05/01/17 05/01/17 05/01/17 06:59 14:59 22:59 Intake Total 1982 5 Output Total 900 Balance 1082 5 Weight 175 lb Intake: IV 1832 5 ANTIBIOTIC 500 Right Internal Jugular 1200 Tube Feeding 150 Output: Chest Tube Drainage 500 Left Mid-Axillary Chest 500 Urine 400 Urethral (Yu) 400 - Medications Active Medications: Active Medications Generic Name Dose Route Start Last Admin Trade Name Freq PRN Reason Stop Dose Admin Acetaminophen 650 mg 04/23/17 16:13 Tylenol 325mg Tab PO Q6H PRN Fever >100.4 F Albuterol/Ipratropium 3 ml 04/23/17 20:00 05/01/17 12:59 Duoneb 3 Mg/0.5 Mg (3 Ml) Ud IH 3 ml [id number] CEM Administration Albuterol/Ipratropium 3 ml 04/23/17 16:13 04/24/17 23:34 Duoneb 3 Mg/0.5 Mg (3 Ml) Ud IH 3 ml Q2H PRN Administration Shortness of Breath Albuterol/Ipratropium 3 ml 04/25/17 00:07 04/25/17 00:30 Duoneb 3 Mg/0.5 Mg (3 Ml) Ud IH 3 ml Q2H PRN Administration Shortness of Breath Chlorhexidine Gluconate 15 ml 04/26/17 18:00 05/01/17 09:31 Peridex PO 15 ml BID CEM Administration Folic Acid 1 mg 04/27/17 12:00 05/01/17 09:31 Folic Acid PO Not Given DAILY CEM Guaifenesin/Dextromethorphan 5 ml 04/24/17 19:29 Robitussin Dm PO Q6H PRN Cough Heparin Sodium (Porcine) 5,000 units 04/30/17 10:00 04/30/17 22:49 Heparin SC Not Given Q8 CEM Protocol Hydrocortisone Sodium Succinate 50 mg 04/29/17 09:45 05/01/17 09:46 Solu-Cortef IVP 50 mg Q12H CEM Administration Azithromycin 500 mg in 250 mls @ 167 mls/hr 04/24/17 10:00 05/01/17 09:47 Zithromax 500mg In Ns IVPB 167 mls/hr DAILY CEM Administration Protocol Norepinephrine Bitartrate 8 mg 258 mls @ 7.74 mls/hr 04/25/17 22:48 04/30/17 15:24 / Sodium Chloride IV 0 mcg/min .Q24H PRN 0 mls/hr TITRATE PER PROTOCOL Titration Protocol 4 MCG/MIN Meropenem 1 gm/ Dextrose 100 mls @ 100 mls/hr 04/27/17 14:00 05/01/17 13:27 IVPB 05/06/17 14:01 100 mls/hr Q8 CEM Administration Protocol Potassium Chloride 20 meq/ 1,010 mls @ 100 mls/hr 04/27/17 16:45 04/30/17 15: 36 Sodium Chloride IV 100 mls/hr .Q10H6M CEM Administration Dexmedetomidine HCl 400 mcg in 100 mls @ 4.15 mls/hr 04/29/17 14:58 05/01/17 09:29 Precedex 4 Mcg/Ml (100 Ml) IV 0.7 mcg/kg/hr .Q24H PRN 14.526 mls/hr Agitation Administration Protocol 0.2 MCG/KG/HR Vasopressin 20 units/ Sodium 101 mls @ 9.09 mls/hr 04/30/17 08:00 04/30/17 10 :10 Chloride IV 9.09 mls/hr .Q11H7M CEM Administration Protocol 0.03 U/MIN Linezolid 600 mg in 300 mls @ 200 mls/hr 04/30/17 10:00 05/01/17 09:47 Zyvox 600mg/300ml D5w IVPB 05/07/17 10:01 200 mls/hr Q12 CEM Administration Protocol Fentanyl Citrate 1,000 mcg in 100 mls @ 2 mls/hr 04/30/17 18:38 05/01/17 06: 14 Fentanyl Citrate/Sodium Chloride 1 Mg/100 Ml IV 100 mcg/hr .Q24H PRN 10 mls/hr TITRATE PER MD ORDER Administration Protocol 20 MCG/HR Midazolam HCl 2 mg 04/29/17 09:28 05/01/17 02:03 Versed Inj IVP 2 mg Q2 PRN Administration Agitation Midodrine 10 mg 04/30/17 10:00 05/01/17 09:33 Proamatine PO 10 mg TID CEM Administration Multivitamins/Minerals 1 tab 04/26/17 12:00 05/01/17 08:18 Therapeutic-M Tab PO Not Given 0800 [facility] Ondansetron HCl 4 mg 04/23/17 16:13 Zofran Inj IVP Q6H PRN Nausea/Vomiting Pantoprazole Sodium 40 mg 04/23/17 16:15 05/01/17 09:45 Protonix Inj IVP Not Given DAILY [facility] Vitamin A 1 applic 04/30/17 23:48 Vitamin A&D TP Q8 PRN dry, cracked lips - Patient Studies Lab Studies: Lab Studies 05/01/17 05/01/17 05/01/17 Range/Units 09:30 06:20 06:20 WBC (4.5-11.0) 10^3/ul RBC (3.5-6.1) 10^6/uL Hgb (14.0-18.0) g/dL Hct (42.0-52.0) % MCV (80.0-105.0) fl MCH (25.0-35.0) pg MCHC (31.0-37.0) g/dl RDW (11.5-14.5) % Plt Count (120.0-450.0) 10^3/uL MPV (7.0-11.0) fl Gran % (50.0-68.0) % Lymph % (Auto) (22.0-35.0) % [place] % (Auto) (1.0-6.0) % Eos % (Auto) (1.5-5.0) % Baso % (Auto) (0.0-3.0) % Gran # (1.4-6.5) Lymph # (1.2-3.4) [place] # (0.1-0.6) Eos # (0.0-0.7) Baso # (0.0-2.0) K/mm3 PT 17.3 H (9.4-12.5) SECONDS INR 1.56 H (0.93-1.08) APTT 32.5 (25.1-36.5) Seconds pCO2 34 L (35-45) mm/Hg pO2 137.0 H (80-100) mm/Hg HCO3 19.2 L (21-28) mmol/L ABG pH 7.36 (7.35-7.45) ABG Total CO2 20.2 L (22-28) mmol.L ABG O2 Saturation 99.3 H (95-98) % ABG O2 Content 14.2 L (15-23) ML/dl ABG Base Excess -5.6 L (-2.0-3.0) mmol/L ABG Hemoglobin 10.3 L (11.7-17.4) g/dL ABG Carboxyhemoglobin 1.6 H (0.5-1.5) % POC ABG HHb (Measured) 0.7 (0-5) % ABG Methemoglobin 1.2 (0.0-3.0) % ABG O2 Capacity 14.3 L (16-24) mL/dl Hgb O2 Saturation 96.5 (95.0-98.0) % FiO2 40.0 % Sodium 145 (132-148) mmol/L Potassium 4.3 (3.6-5.0) mmol/L Chloride 120 H (98-107) mmol/L Carbon Dioxide 20 L (21-33) mmol/L Anion Gap 9 L (10-20) BUN 32 H (7-21) mg/dL Creatinine 0.8 (0.8-1.5) mg/dL Est GFR ( Amer) > 60 Est GFR (Non-Af Amer) > 60 Random Glucose 149 H (70-110) mg/dL Calcium 8.5 (8.4-10.5) mg/dL Total Bilirubin 1.5 H (0.2-1.3) mg/dL AST 46 (17-59) U/L ALT 52 (7-56) U/L Alkaline Phosphatase 160 H D (38-126) U/L Total Protein 4.8 L (5.8-8.3) g/dL Albumin 2.2 L (3.0-4.8) g/dL Globulin 2.6 gm/dL Albumin/Globulin Ratio 0.8 L (1.1-1.8) Procalcitonin (0.19-0.49) NG/ML Blood Type Blood Type Confirm Antibody Screen Crossmatch BBK History Checked 05/01/17 04/30/17 04/30/17 Range/Units 06:20 20:38 18:47 WBC 20.8 H (4.5-11.0) 10^3/ul RBC 3.22 L (3.5-6.1) 10^6/uL Hgb 10.3 L (14.0-18.0) g/dL Hct 31.2 L (42.0-52.0) % MCV 96.9 (80.0-105.0) fl MCH 32.0 (25.0-35.0) pg MCHC 33.0 (31.0-37.0) g/dl RDW 15.4 H (11.5-14.5) % Plt Count 116 L (120.0-450.0) 10^3/uL MPV 10.6 (7.0-11.0) fl Gran % 92.1 H (50.0-68.0) % Lymph % (Auto) 2.7 L (22.0-35.0) % [place] % (Auto) 5.1 (1.0-6.0) % Eos % (Auto) 0.0 L (1.5-5.0) % Baso % (Auto) 0.1 (0.0-3.0) % Gran # 19.12 H (1.4-6.5) Lymph # 0.6 L (1.2-3.4) [place] # 1.1 H (0.1-0.6) Eos # 0.0 (0.0-0.7) Baso # 0.03 (0.0-2.0) K/mm3 PT (9.4-12.5) SECONDS INR (0.93-1.08) APTT (25.1-36.5) Seconds pCO2 (35-45) mm/Hg pO2 (80-100) mm/Hg HCO3 (21-28) mmol/L ABG pH (7.35-7.45) ABG Total CO2 (22-28) mmol.L ABG O2 Saturation (95-98) % ABG O2 Content (15-23) ML/dl ABG Base Excess (-2.0-3.0) mmol/L ABG Hemoglobin (11.7-17.4) g/dL ABG Carboxyhemoglobin (0.5-1.5) % POC ABG HHb (Measured) (0-5) % ABG Methemoglobin (0.0-3.0) % ABG O2 Capacity (16-24) mL/dl Hgb O2 Saturation (95.0-98.0) % FiO2 % Sodium (132-148) mmol/L Potassium (3.6-5.0) mmol/L Chloride (98-107) mmol/L Carbon Dioxide (21-33) mmol/L Anion Gap (10-20) BUN (7-21) mg/dL Creatinine (0.8-1.5) mg/dL Est GFR ( Amer) Est GFR (Non-Af Amer) Random Glucose (70-110) mg/dL Calcium (8.4-10.5) mg/dL Total Bilirubin (0.2-1.3) mg/dL AST (17-59) U/L ALT (7-56) U/L Alkaline Phosphatase (38-126) U/L Total Protein (5.8-8.3) g/dL Albumin (3.0-4.8) g/dL Globulin gm/dL Albumin/Globulin Ratio (1.1-1.8) Procalcitonin (0.19-0.49) NG/ML Blood Type O POSITIVE Blood Type Confirm O POSITIVE Antibody Screen Negative Crossmatch See Detail BBK History Checked No verified bt 04/30/17 Range/Units 10:20 WBC (4.5-11.0) 10^3/ul RBC (3.5-6.1) 10^6/uL Hgb (14.0-18.0) g/dL Hct (42.0-52.0) % MCV (80.0-105.0) fl MCH (25.0-35.0) pg MCHC (31.0-37.0) g/dl RDW (11.5-14.5) % Plt Count (120.0-450.0) 10^3/uL MPV (7.0-11.0) fl Gran % (50.0-68.0) % Lymph % (Auto) (22.0-35.0) % [place] % (Auto) (1.0-6.0) % Eos % (Auto) (1.5-5.0) % Baso % (Auto) (0.0-3.0) % Gran # (1.4-6.5) Lymph # (1.2-3.4) [place] # (0.1-0.6) Eos # (0.0-0.7) Baso # (0.0-2.0) K/mm3 PT (9.4-12.5) SECONDS INR (0.93-1.08) APTT (25.1-36.5) Seconds pCO2 (35-45) mm/Hg pO2 (80-100) mm/Hg HCO3 (21-28) mmol/L ABG pH (7.35-7.45) ABG Total CO2 (22-28) mmol.L ABG O2 Saturation (95-98) % ABG O2 Content (15-23) ML/dl ABG Base Excess (-2.0-3.0) mmol/L ABG Hemoglobin (11.7-17.4) g/dL ABG Carboxyhemoglobin (0.5-1.5) % POC ABG HHb (Measured) (0-5) % ABG Methemoglobin (0.0-3.0) % ABG O2 Capacity (16-24) mL/dl Hgb O2 Saturation (95.0-98.0) % FiO2 % Sodium (132-148) mmol/L Potassium (3.6-5.0) mmol/L Chloride (98-107) mmol/L Carbon Dioxide (21-33) mmol/L Anion Gap (10-20) BUN (7-21) mg/dL Creatinine (0.8-1.5) mg/dL Est GFR ( Amer) Est GFR (Non-Af Amer) Random Glucose (70-110) mg/dL Calcium (8.4-10.5) mg/dL Total Bilirubin (0.2-1.3) mg/dL AST (17-59) U/L ALT (7-56) U/L Alkaline Phosphatase (38-126) U/L Total Protein (5.8-8.3) g/dL Albumin (3.0-4.8) g/dL Globulin gm/dL Albumin/Globulin Ratio (1.1-1.8) Procalcitonin 0.32 (0.19-0.49) NG/ML Blood Type Blood Type Confirm Antibody Screen Crossmatch BBK History Checked Laboratory Results - last 24 hr 04/30/17 04/30/17 04/30/17 10:20 18:47 20:38 WBC RBC Hgb Hct MCV MCH MCHC RDW Plt Count MPV Gran % Lymph % (Auto) [place] % (Auto) Eos % (Auto) Baso % (Auto) Gran # Lymph # [place] # Eos # Baso # PT INR APTT pCO2 pO2 HCO3 ABG pH ABG Total CO2 ABG O2 Saturation ABG O2 Content ABG Base Excess ABG Hemoglobin ABG Carboxyhemoglobin POC ABG HHb (Measured) ABG Methemoglobin ABG O2 Capacity Hgb O2 Saturation FiO2 Sodium Potassium Chloride Carbon Dioxide Anion Gap BUN Creatinine Est GFR ( Amer) Est GFR (Non-Af Amer) Random Glucose Calcium Total Bilirubin AST ALT Alkaline Phosphatase Total Protein Albumin Globulin Albumin/Globulin Ratio Procalcitonin 0.32 Blood Type O POSITIVE Blood Type Confirm O POSITIVE Antibody Screen Negative Crossmatch See Detail BBK History Checked No verified bt 05/01/17 05/01/17 05/01/17 06:20 06:20 06:20 WBC 20.8 H RBC 3.22 L Hgb 10.3 L Hct 31.2 L MCV 96.9 MCH 32.0 MCHC 33.0 RDW 15.4 H Plt Count 116 L MPV 10.6 Gran % 92.1 H Lymph % (Auto) 2.7 L [place] % (Auto) 5.1 Eos % (Auto) 0.0 L Baso % (Auto) 0.1 Gran # 19.12 H Lymph # 0.6 L [place] # 1.1 H Eos # 0.0 Baso # 0.03 PT 17.3 H INR 1.56 H APTT 32.5 pCO2 pO2 HCO3 ABG pH ABG Total CO2 ABG O2 Saturation ABG O2 Content ABG Base Excess ABG Hemoglobin ABG Carboxyhemoglobin POC ABG HHb (Measured) ABG Methemoglobin ABG O2 Capacity Hgb O2 Saturation FiO2 Sodium 145 Potassium 4.3 Chloride 120 H Carbon Dioxide 20 L Anion Gap 9 L BUN 32 H Creatinine 0.8 Est GFR ( Amer) > 60 Est GFR (Non-Af Amer) > 60 Random Glucose 149 H Calcium 8.5 Total Bilirubin 1.5 H AST 46 ALT 52 Alkaline Phosphatase 160 H D Total Protein 4.8 L Albumin 2.2 L Globulin 2.6 Albumin/Globulin Ratio 0.8 L Procalcitonin Blood Type Blood Type Confirm Antibody Screen Crossmatch BBK History Checked 05/01/17 09:30 WBC RBC Hgb Hct MCV MCH MCHC RDW Plt Count MPV Gran % Lymph % (Auto) [place] % (Auto) Eos % (Auto) Baso % (Auto) Gran # Lymph # [place] # Eos # Baso # PT INR APTT pCO2 34 L pO2 137.0 H HCO3 19.2 L ABG pH 7.36 ABG Total CO2 20.2 L ABG O2 Saturation 99.3 H ABG O2 Content 14.2 L ABG Base Excess -5.6 L ABG Hemoglobin 10.3 L ABG Carboxyhemoglobin 1.6 H POC ABG HHb (Measured) 0.7 ABG Methemoglobin 1.2 ABG O2 Capacity 14.3 L Hgb O2 Saturation 96.5 FiO2 40.0 Sodium Potassium Chloride Carbon Dioxide Anion Gap BUN Creatinine Est GFR ( Amer) Est GFR (Non-Af Amer) Random Glucose Calcium Total Bilirubin AST ALT Alkaline Phosphatase Total Protein Albumin Globulin Albumin/Globulin Ratio Procalcitonin Blood Type Blood Type Confirm Antibody Screen Crossmatch BBK History Checked Attending/Attestation - Attestation I have personally seen and examined this patient.: Yes I have fully participated in the care of the patient.: Yes I have reviewed all pertinent clinical information: Yes Notes (Text): 05/01/17 16:11 76 yo male recovering from septic shock with MODS, including respiratory failure , encephalopathy and septic cardiomyopathy, secondary to severe CAP, complicated by empyema. Leukocytosis is trending down, old CVL removed yesterday , new PICC is placed, Zyvox added to Meropenem. Fluid resuscited and off pressors. VATs with decortication is done: u/o over 2 hrs 400 cc, minor EBL, required 1 PRBC during procedure, did not require pressors, received 1L NS bolus. Will proceed with conservative fluid and 02 management at present time. Will light up sedation with eyes on SBT and eventual extubation attempt. Until then protective lung ventilation strategy, HOB>35, DVT/GI prophylaxis, BG 140- 180, NPO ccm time 40 min.
[2017-05-01] MEDS: Multivitamin With Minerals Tab PO SCH (08:18)
--- NOTE | 2017-05-01 09:26 | CP.PCM.PN ---
Subjective - Date & Time of Evaluation Date of Evaluation: 05/01/17 Time of Evaluation: 09:00 - Subjective Subjective: Continues to be on the ventilator, no fevers overnight, for possible VATS. Objective - Vital Signs/Intake and Output Vital Signs (last 24 hours): Temp Pulse Resp BP Pulse Ox 96.7 F L 90 21 129/60 100 05/01/17 00:00 05/01/17 06:35 04/30/17 20:00 05/01/17 06:35 05/01/17 06:35 Intake and Output: 04/30/17 05/01/17 18:59 06:59 Intake Total 324 148 Output Total 480 Balance -156 148 - Medications Medications: Current Medications Acetaminophen (Tylenol 325mg Tab) 650 mg PO Q6H PRN PRN Reason: Fever >100.4 F Albuterol/Ipratropium (Duoneb 3 Mg/0.5 Mg (3 Ml) Ud) 3 ml IH [id number] [facility] Last Admin: 04/30/17 20:32 Dose: 3 ml Albuterol/Ipratropium (Duoneb 3 Mg/0.5 Mg (3 Ml) Ud) 3 ml IH Q2H PRN PRN Reason: Shortness of Breath Last Admin: 04/24/17 23:34 Dose: 3 ml Albuterol/Ipratropium (Duoneb 3 Mg/0.5 Mg (3 Ml) Ud) 3 ml IH Q2H PRN PRN Reason: Shortness of Breath Last Admin: 04/25/17 00:30 Dose: 3 ml Chlorhexidine Gluconate (Peridex) 15 ml PO BID [facility] Last Admin: 04/30/17 17:41 Dose: 15 ml Folic Acid (Folic Acid) 1 mg PO DAILY [facility] Last Admin: 04/30/17 10:14 Dose: 1 mg Guaifenesin/Dextromethorphan (Robitussin Dm) 5 ml PO Q6H PRN PRN Reason: Cough Heparin Sodium (Porcine) (Heparin) 5,000 units SC Q8 [facility] PRN Reason: Protocol Last Admin: 04/30/17 22:49 Dose: Not Given Hydrocortisone Sodium Succinate (Solu-Cortef) 50 mg IVP Q12H [facility] Last Admin: 04/30/17 21:26 Dose: 50 mg Azithromycin (Zithromax 500mg In Ns) 500 mg in 250 mls @ 167 mls/hr IVPB DAILY [facility] PRN Reason: Protocol Last Admin: 04/30/17 10:04 Dose: 167 mls/hr Norepinephrine Bitartrate 8 mg (/ Sodium Chloride) 258 mls @ 7.74 mls/hr IV .Q24H PRN; Protocol; 4 MCG/MIN PRN Reason: TITRATE PER PROTOCOL Last Titration: 04/30/17 15:24 Dose: 0 mcg/min, 0 mls/hr Meropenem 1 gm/ Dextrose 100 mls @ 100 mls/hr IVPB Q8 [facility] PRN Reason: Protocol Stop: 05/06/17 14:01 Last Admin: 05/01/17 05:27 Dose: 100 mls/hr Potassium Chloride 20 meq/ (Sodium Chloride) 1,010 mls @ 100 mls/hr IV .Q10H6M [facility] Last Admin: 04/30/17 15:36 Dose: 100 mls/hr Dexmedetomidine HCl (Precedex 4 Mcg/Ml (100 Ml)) 400 mcg in 100 mls @ 4.15 mls/ hr IV .Q24H PRN; Protocol; 0.2 MCG/KG/HR PRN Reason: Agitation Last Titration: 05/01/17 04:44 Dose: 0.7 mcg/kg/hr, 14.526 mls/hr Vasopressin 20 units/ Sodium (Chloride) 101 mls @ 9.09 mls/hr IV .Q11H7M [facility]EM; 0.03 U/MIN PRN Reason: Protocol Last Admin: 04/30/17 10:10 Dose: 9.09 mls/hr Linezolid (Zyvox 600mg/300ml D5w) 600 mg in 300 mls @ 200 mls/hr IVPB Q12 [facility] PRN Reason: Protocol Stop: 05/07/17 10:01 Last Admin: 04/30/17 22:39 Dose: 200 mls/hr Fentanyl Citrate (Fentanyl Citrate/Sodium Chloride 1 Mg/100 Ml) 1,000 mcg in 100 mls @ 2 mls/hr IV .Q24H PRN; Protocol; 20 MCG/HR PRN Reason: TITRATE PER MD ORDER Last Admin: 05/01/17 06:14 Dose: 100 mcg/hr, 10 mls/hr Midazolam HCl (Versed Inj) 2 mg IVP Q2 PRN PRN Reason: Agitation Last Admin: 05/01/17 02:03 Dose: 2 mg Midodrine (Proamatine) 10 mg PO TID [facility] Last Admin: 04/30/17 17:41 Dose: 10 mg Multivitamins/Minerals (Therapeutic-M Tab) 1 tab PO 0800 [facility] Last Admin: 04/30/17 09:00 Dose: 1 tab Ondansetron HCl (Zofran Inj) 4 mg IVP Q6H PRN PRN Reason: Nausea/Vomiting Pantoprazole Sodium (Protonix Inj) 40 mg IVP DAILY [facility] Last Admin: 04/30/17 10:06 Dose: 40 mg Vitamin A (Vitamin A&D) 1 applic TP Q8 PRN PRN Reason: dry, cracked lips - Labs Labs: 04/30/17 05:20 04/30/17 05:20 PT 18.1 SECONDS (9.4-12.5) H 04/29/17 04:00 INR 1.63 (0.93-1.08) H 04/29/17 04:00 APTT 33.5 Seconds (25.1-36.5) 04/29/17 04:00 - Constitutional Appears: Chronically Ill, Other (intubated and sedated) - Head Exam Head Exam: NORMAL INSPECTION - ENT Exam Additional comments: ET tube in place - Neck Exam Neck Exam: absent: Meningismus - Respiratory Exam Respiratory Exam: Decreased Breath Sounds, Rales (scattered) Additional comments: left sided chest tube in place - Cardiovascular Exam Cardiovascular Exam: +S1, +S2 - GI/Abdominal Exam GI & Abdominal Exam: Soft. absent: Tenderness - Extremities Exam Additional comments: right upper arm PICC line in place Assessment and Plan - Assessment and Plan (Free Text) Plan: Assessment Severe sepsis with ventilator dependent respiratory failure due to left sided severe community-acquired aspiration pneumonia with left sided pleural effusion S/P thoracentesis and now S/P chest tube placement POD #6, slowly improving, now off vasopressors history of alcohol abuse hypothyroidism cataracts S/P left eye surgery HTN dementia Plan continue Zyvox day [address] Araujo and continue Merrem and Zithromax day 8; blood cx and pleural fluid cx are negative; will continue monitor chest tube output (starting to decrease) follow up plan of cardiothoracic surgery for possible VATS - possibly today will continue to monitor clinically
[2017-05-01] MEDS: Chlorhexidine 0.12% Oral Sol 480 ml Bot PO SCH ×2 (09:31→17:47)
[2017-05-01 09:41] LABS: ARTERIAL BLOOD GAS HCO3 19.2 mmol/L (21-28); ARTERIAL BLOOD GAS O2 CAPACITY 14.3 mL/dl (16-24); ARTERIAL BLOOD GAS O2 CONTENT 14.2 ML/dl (15-23); ARTERIAL BLOOD GAS PH 7.36 (7.35-7.45); ARTERIAL BLOOD HGB O2 SAT 96.5 % (95.0-98.0); CARBOXYHEMOGLOBIN 1.6 % (0.5-1.5); HHB 0.7 % (0-5); METHEMOGLOBIN 1.2 % (0.0-3.0)
--- NOTE | 2017-05-01 09:44 | RAD ---
HISTORY: Left pleural effusion COMPARISON: 04/30/2017 FINDINGS: The endotracheal tube terminates 1.5 cm proximal to the richard. The right PICC line terminates at the cavoatrial junction. The nasogastric tube terminates in the stomach. The left chest tube is in stable position. LUNGS: There is persistent airspace disease in the left lower lobe. There is no change in moderate pulmonary venous congestion. PLEURA: Persistent small left pleural effusion. There is also probable small right pleural effusion, no pneumothorax apparent. CARDIOVASCULAR: The heart remains enlarged. OSSEOUS STRUCTURES: No significant abnormalities. VISUALIZED UPPER ABDOMEN: Normal. OTHER FINDINGS: None. IMPRESSION: 1. No change in left lower lobe airspace disease and left pleural effusion. 2. Suspect small right pleural effusion. 3. Persistent cardiomegaly and pulmonary venous congestion. 3. Stable position of support lines and tubes.
[2017-05-01] MEDS: Azithromycin 500MG/NS 250ml 500 MG/250 ML BAG IVPB SCH (09:47)
[2017-05-01] MEDS: Linezolid 600 mg in D5W 300 ml 600 MG/300 ML BAG IVPB SCH ×2 (09:47→22:17)
[2017-05-01] MEDS ORDERED: Etomidate 20 mg/10ml Inj IV ONE (11:21)
[2017-05-01] MEDS ORDERED: Succinylcholine 200 mg/10 ml Inj IV ONE (11:21)
[2017-05-01] MEDS ORDERED: Midazolam 2 MG/2 ML VIAL ONE (13:16)
[2017-05-01] MEDS ORDERED: Bupivacaine 0.5% Inj(30mL) ONE (13:18)
[2017-05-01] MEDS ORDERED: Rocuronium 10 mg/ml (5 ml) ONE (14:01)
[2017-05-01] MEDS ORDERED: Desflurane Inhalation Anesthetic Liq (240 ml) ONE (14:09)
--- NOTE | 2017-05-01 15:51 | PCM.SURG1 ---
Surgeon's Initial Post Op Note - Surgeon's Notes Surgeon: Dr He [employer] Development Manager: Dr Yee PGY3; Richa LOPEZ IV Type of Anesthesia: General Endo Anesthesia Administered By: Howie Pre-Operative Diagnosis: Empyema, Fibrothorax Operative Findings: see operative report Post-Operative Diagnosis: same Operation Performed: Left Thoracotomy, Drainage of Empyema, Decortication Specimen/Specimens Removed: Pleural Peel Estimated Blood Loss: EBL {In ML}: 800 Blood Products Given: PRBC, FFP (1) Drains Used: Chest Tubes (2) Post-Op Condition: Fair Date of Surgery/Procedure: 05/01/17 Time of Surgery/Procedure: 15:50
--- NOTE | 2017-05-01 16:09 | RAD ---
HISTORY: S/P Thoracotomy w decortication COMPARISON: 05/01/2017 FINDINGS: LUNGS: There are 2 chest tubes on the left. There is no pneumothorax. There is a decrease in the size of the pleural effusion. Remaining central lines and tubes are unchanged. PLEURA: No significant pleural effusion identified, no pneumothorax apparent. CARDIOVASCULAR: Normal. OSSEOUS STRUCTURES: No significant abnormalities. VISUALIZED UPPER ABDOMEN: Normal. OTHER FINDINGS: None. IMPRESSION: There are 2 chest tubes on the left. There is no pneumothorax. There is a decrease in the size of the pleural effusion.
[2017-05-01 17:15] LABS: INR 1.56 (0.93-1.08); PARTIAL THROMBOPLASTIN TIME 34.3 Seconds (25.1-36.5)
[2017-05-01 17:25] LABS: ARTERIAL BLOOD GAS HCO3 19.4 mmol/L (21-28); ARTERIAL BLOOD GAS PH 7.39 (7.35-7.45)
[2017-05-01 18:04] LABS: ALB/GLOB RATIO 0.8 (1.1-1.8); ALKALINE PHOSPHATASE 88 U/L (38-126); ALT/SGPT 40 U/L (7-56); AST/SGOT 29 U/L (17-59); BILIRUBIN,TOTAL 1.6 mg/dL (0.2-1.3); BLOOD UREA NITROGEN 27 mg/dL (7-21); CALCIUM 7.8 mg/dL (8.4-10.5); CARBON DIOXIDE 18 mmol/L (21-33); CHLORIDE 119 mmol/L (98-107); GFR AFRICAN-AMERICAN > 60; GLUCOSE,RANDOM 153 mg/dL (70-110); POTASSIUM 4.5 mmol/L (3.6-5.0); SODIUM 141 mmol/L (132-148)
[2017-05-01] MEDS: Albumin Human 25% (12.5 gm/50 ml) IV SCH ×2 (18:11→19:59)
[2017-05-01 18:15] LABS: BASO # 0.01 K/mm3 (0.0-2.0); GRAN # 18.46 (1.4-6.5); GRAN % 89.5 % (50.0-68.0); LYMPH % 4.6 % (22.0-35.0); MEAN CELL VOLUME 95.9 fl (80.0-105.0); MEAN CORPUSCULAR HEMOGLOBIN 31.8 pg (25.0-35.0); MEAN CORPUSCULAR HGB CONC 33.2 g/dl (31.0-37.0); MEAN PLATELET VOLUME 10.7 fl (7.0-11.0); MONO # 1.2 (0.1-0.6); MONO % 5.9 % (1.0-6.0); RED CELL DISTRIBUTION WIDTH 15.2 % (11.5-14.5); WHITE BLOOD COUNT 20.7 10^3/ul (4.5-11.0)
[2017-05-01 18:18] LABS: HEMATOCRIT 23.2 % (42.0-52.0)
[2017-05-01] MEDS ORDERED: Albumin Human 25% (12.5 gm/50 ml) IV SCH (18:45)
--- NOTE | 2017-05-01 21:23 | PN ---
DATE: SUBJECTIVE: The patient is a 76-year-old, remains on vent, open eyes on verbal command. PHYSICAL EXAMINATION: VITAL SIGNS: He is afebrile, pulse 91, respirations 18 and blood pressure 101/55. LUNGS: Decreased breath sounds on the left base. HEART: S1 and S2, audible, tachycardic. ABDOMEN: Soft and nontender. No rebound. No guarding. NEUROLOGIC: He is sleepy, but arousable. LABORATORY EXAMINATION: WBC is 13.5, hemoglobin 7.1, hematocrit 21.4 and platelet of 100. PT 17.2. INR 1.56. Chemistry: Sodium 145, potassium 4.3, chloride 120, CO2 of 20, BUN 32, creatinine 0.8, and blood sugar of 149. ASSESSMENT: 1. Acute respiratory failure. 2. Left thoracotomy and drainage of empyema and decortication. 3. Leukocytosis secondary to empyema. 4. Anemia status post blood transfusion. 5. History of alcohol abuse and coagulopathy. PLAN: Currently, the patient is on nebulizer treatment. He is on DVT prophylaxis. He is on Zyvox and Zithromax. We will follow up CBC and CMP in a.m. Tony Ochoa MD
[2017-05-01] MEDS ORDERED: Sodium Chloride 0.9% 1,000 ML IV SCH (23:45)
[2017-05-01 23:48] LABS: MEAN CORPUSCULAR HEMOGLOBIN 29.1 pg (25.0-35.0); MEAN CORPUSCULAR HGB CONC 33.1 g/dl (31.0-37.0); MEAN PLATELET VOLUME 10.5 fl (7.0-11.0); RED CELL DISTRIBUTION WIDTH 17.4 % (11.5-14.5); WHITE BLOOD COUNT 15.1 10^3/ul (4.5-11.0)
[2017-05-01 23:59] LABS: HEMATOCRIT 15.4 % (42.0-52.0)
[2017-05-02 00:04] LABS: INR 1.8 (0.93-1.08)
[2017-05-02] MEDS: Albumin Human 25% (12.5 gm/50 ml) IV SCH ×4 (00:05→18:37)
[2017-05-02 00:22] LABS: MEAN CELL VOLUME 89.1 fl (80.0-105.0); MEAN CORPUSCULAR HEMOGLOBIN 29.7 pg (25.0-35.0); MEAN CORPUSCULAR HGB CONC 33.3 g/dl (31.0-37.0); MEAN PLATELET VOLUME 10.4 fl (7.0-11.0); RED CELL DISTRIBUTION WIDTH 17.8 % (11.5-14.5); WHITE BLOOD COUNT 19.4 10^3/ul (4.5-11.0)
[2017-05-02 00:28] LABS: HEMATOCRIT 15.6 % (42.0-52.0)
[2017-05-02] MEDS ORDERED: Sodium Chloride 0.9% 1,000 ML IV STA (00:33)
[2017-05-02 00:47] LABS: ABG MECHANICAL RATE 18; ARTERIAL BLOOD GAS PH 7.33 (7.35-7.45); ATERIAL BLOOD GAS PEEP 5
--- NOTE | 2017-05-02 01:07 | CP.PCM.PN ---
<Harrison Horvath - Last Filed: 05/02/17 00:57> Subjective - Date & Time of Evaluation Date of Evaluation: 05/02/17 Time of Evaluation: 00:00 - Subjective Subjective: ICU Progress Note Harrison Horvath, PGY-2 76 M w/ PMHx of dementia, ETOH abuse, and HTN who was admitted to the ICU with sepsis secondary to left sided empyema, s/p chest tube/thoracenthesis on 04/25 with immediate 1.5L of purulent fluid removed. S/p Left Thoracotomy, Drainage of Empyema, Decortication today with chest tube and drain in place. Pt post op Hgb was 7.7 was administered 2 units pRBC, however repeat Hgb was resulted as 5.1. A repeat H&H resulted 5.2. Pt chest tube dressing was soaked with serosanguinous fluid. The chest was draining approx 100cc/hr, with a total of 1400cc in drain. Pt was hypotensive, 1L bolus was administered and levophed was titrated to target MAP>60. Pt had UOP of approx 30 cc/hr. Pt was ordered 4 u pRBC/4u FFP, and 2u Plt to be administered rapidly. Primary surgeon was contacted and updated on pt condition, plan reviewed and agreed upon. Will fu and reassess. Objective - Vital Signs/Intake and Output Vital Signs (last 24 hours): Temp Pulse Resp BP Pulse Ox 97.5 F L 109 H 25 H 148/79 100 05/01/17 23:00 05/02/17 00:49 05/01/17 23:00 05/02/17 00:49 05/02/17 00:49 Intake and Output: 05/01/17 05/02/17 18:59 06:59 Intake Total 130 10 Output Total 650 Balance -520 10 - Medications Medications: Current Medications Acetaminophen (Tylenol 325mg Tab) 650 mg PO Q6H PRN PRN Reason: Fever >100.4 F Albumin Human (Albumin Human 25% (12.5 Gm/50 Ml)) 12.5 gm IV Q4 [facility] Stop: 05/02/17 16:01 Albuterol/Ipratropium (Duoneb 3 Mg/0.5 Mg (3 Ml) Ud) 3 ml IH [id number] [facility] Last Admin: 05/01/17 20:03 Dose: 3 ml Albuterol/Ipratropium (Duoneb 3 Mg/0.5 Mg (3 Ml) Ud) 3 ml IH Q2H PRN PRN Reason: Shortness of Breath Last Admin: 04/24/17 23:34 Dose: 3 ml Albuterol/Ipratropium (Duoneb 3 Mg/0.5 Mg (3 Ml) Ud) 3 ml IH Q2H PRN PRN Reason: Shortness of Breath Last Admin: 04/25/17 00:30 Dose: 3 ml Chlorhexidine Gluconate (Peridex) 15 ml PO BID [facility] Last Admin: 05/01/17 17:47 Dose: 15 ml Folic Acid (Folic Acid) 1 mg PO DAILY [facility] Last Admin: 05/01/17 09:31 Dose: Not Given Guaifenesin/Dextromethorphan (Robitussin Dm) 5 ml PO Q6H PRN PRN Reason: Cough Heparin Sodium (Porcine) (Heparin) 5,000 units SC Q8 [facility] PRN Reason: Protocol Last Admin: 04/30/17 22:49 Dose: Not Given Hydrocortisone Sodium Succinate (Solu-Cortef) 50 mg IVP DAILY [facility] Azithromycin (Zithromax 500mg In Ns) 500 mg in 250 mls @ 167 mls/hr IVPB DAILY [facility] PRN Reason: Protocol Last Admin: 05/01/17 09:47 Dose: 167 mls/hr Norepinephrine Bitartrate 8 mg (/ Sodium Chloride) 258 mls @ 7.74 mls/hr IV .Q24H PRN; Protocol; 4 MCG/MIN PRN Reason: TITRATE PER PROTOCOL Last Titration: 04/30/17 15:24 Dose: 0 mcg/min, 0 mls/hr Meropenem 1 gm/ Dextrose 100 mls @ 100 mls/hr IVPB Q8 [facility] PRN Reason: Protocol Stop: 05/06/17 14:01 Last Admin: 05/01/17 22:16 Dose: 100 mls/hr Dexmedetomidine HCl (Precedex 4 Mcg/Ml (100 Ml)) 400 mcg in 100 mls @ 4.15 mls/ hr IV .Q24H PRN; Protocol; 0.2 MCG/KG/HR PRN Reason: Agitation Last Titration: 05/01/17 21:50 Dose: 0.5 mcg/kg/hr, 10.376 mls/hr Vasopressin 20 units/ Sodium (Chloride) 101 mls @ 9.09 mls/hr IV .Q11H7M [facility]; 0.03 U/MIN PRN Reason: Protocol Last Admin: 04/30/17 10:10 Dose: 9.09 mls/hr Linezolid (Zyvox 600mg/300ml D5w) 600 mg in 300 mls @ 200 mls/hr IVPB Q12 [facility] PRN Reason: Protocol Stop: 05/07/17 10:01 Last Admin: 05/01/17 22:17 Dose: 200 mls/hr Fentanyl Citrate (Fentanyl Citrate/Sodium Chloride 1 Mg/100 Ml) 1,000 mcg in 100 mls @ 2 mls/hr IV .Q24H PRN; Protocol; 20 MCG/HR PRN Reason: TITRATE PER MD ORDER Last Titration: 05/01/17 17:53 Dose: 50 mcg/hr, 5 mls/hr Sodium Chloride (Sodium Chloride 0.9%) 1,000 mls @ 100 mls/hr IV .Q10H [facility] Sodium Chloride (Sodium Chloride 0.9%) 1,000 mls @ 999 mls/hr IV .Q1H1M STA Stop: 05/02/17 01:33 Midazolam HCl (Versed Inj) 2 mg IVP Q2 PRN PRN Reason: Agitation Last Admin: 05/01/17 02:03 Dose: 2 mg Midodrine (Proamatine) 10 mg PO TID [facility] Last Admin: 05/01/17 17:23 Dose: 10 mg Multivitamins/Minerals (Therapeutic-M Tab) 1 tab PO 0800 [facility] Last Admin: 05/01/17 08:18 Dose: Not Given Ondansetron HCl (Zofran Inj) 4 mg IVP Q6H PRN PRN Reason: Nausea/Vomiting Pantoprazole Sodium (Protonix Inj) 40 mg IVP DAILY [facility] Last Admin: 05/01/17 09:45 Dose: Not Given Vitamin A (Vitamin A&D) 1 applic TP Q8 PRN PRN Reason: dry, cracked lips - Labs Labs: 05/02/17 00:12 05/01/17 17:50 PT 19.9 SECONDS (9.4-12.5) H 05/01/17 23:30 INR 1.80 (0.93-1.08) H 05/01/17 23:30 APTT 34.3 Seconds (25.1-36.5) 05/01/17 16:54 <Christian Chavarria Q - Last Filed: 05/02/17 04:37> Objective - Vital Signs/Intake and Output Vital Signs (last 24 hours): Temp Pulse Resp BP Pulse Ox 97.5 F L 109 H 25 H 148/79 100 05/01/17 23:00 05/02/17 00:49 05/01/17 23:00 05/02/17 00:49 05/02/17 00:49 Intake and Output: 05/01/17 05/02/17 18:59 06:59 Intake Total 130 10 Output Total 650 Balance -520 10 - Medications Medications: Current Medications Acetaminophen (Tylenol 325mg Tab) 650 mg PO Q6H PRN PRN Reason: Fever >100.4 F Albumin Human (Albumin Human 25% (12.5 Gm/50 Ml)) 12.5 gm IV Q4 [facility] Stop: 05/02/17 16:01 Albuterol/Ipratropium (Duoneb 3 Mg/0.5 Mg (3 Ml) Ud) 3 ml IH [id number] [facility] Last Admin: 05/01/17 20:03 Dose: 3 ml Albuterol/Ipratropium (Duoneb 3 Mg/0.5 Mg (3 Ml) Ud) 3 ml IH Q2H PRN PRN Reason: Shortness of Breath Last Admin: 04/24/17 23:34 Dose: 3 ml Albuterol/Ipratropium (Duoneb 3 Mg/0.5 Mg (3 Ml) Ud) 3 ml IH Q2H PRN PRN Reason: Shortness of Breath Last Admin: 04/25/17 00:30 Dose: 3 ml Chlorhexidine Gluconate (Peridex) 15 ml PO BID [facility] Last Admin: 05/01/17 17:47 Dose: 15 ml Folic Acid (Folic Acid) 1 mg PO DAILY [facility] Last Admin: 05/01/17 09:31 Dose: Not Given Guaifenesin/Dextromethorphan (Robitussin Dm) 5 ml PO Q6H PRN PRN Reason: Cough Heparin Sodium (Porcine) (Heparin) 5,000 units SC Q8 [facility]EM PRN Reason: Protocol Last Admin: 04/30/17 22:49 Dose: Not Given Hydrocortisone Sodium Succinate (Solu-Cortef) 50 mg IVP DAILY [facility] Azithromycin (Zithromax 500mg In Ns) 500 mg in 250 mls @ 167 mls/hr IVPB DAILY [facility] PRN Reason: Protocol Last Admin: 05/01/17 09:47 Dose: 167 mls/hr Norepinephrine Bitartrate 8 mg (/ Sodium Chloride) 258 mls @ 7.74 mls/hr IV .Q24H PRN; Protocol; 4 MCG/MIN PRN Reason: TITRATE PER PROTOCOL Last Titration: 04/30/17 15:24 Dose: 0 mcg/min, 0 mls/hr Meropenem 1 gm/ Dextrose 100 mls @ 100 mls/hr IVPB Q8 [facility] PRN Reason: Protocol Stop: 05/06/17 14:01 Last Admin: 05/01/17 22:16 Dose: 100 mls/hr Dexmedetomidine HCl (Precedex 4 Mcg/Ml (100 Ml)) 400 mcg in 100 mls @ 4.15 mls/ hr IV .Q24H PRN; Protocol; 0.2 MCG/KG/HR PRN Reason: Agitation Last Titration: 05/01/17 21:50 Dose: 0.5 mcg/kg/hr, 10.376 mls/hr Vasopressin 20 units/ Sodium (Chloride) 101 mls @ 9.09 mls/hr IV .Q11H7M [facility]; 0.03 U/MIN PRN Reason: Protocol Last Admin: 04/30/17 10:10 Dose: 9.09 mls/hr Linezolid (Zyvox 600mg/300ml D5w) 600 mg in 300 mls @ 200 mls/hr IVPB Q12 [facility] PRN Reason: Protocol Stop: 05/07/17 10:01 Last Admin: 05/01/17 22:17 Dose: 200 mls/hr Fentanyl Citrate (Fentanyl Citrate/Sodium Chloride 1 Mg/100 Ml) 1,000 mcg in 100 mls @ 2 mls/hr IV .Q24H PRN; Protocol; 20 MCG/HR PRN Reason: TITRATE PER MD ORDER Last Titration: 05/01/17 17:53 Dose: 50 mcg/hr, 5 mls/hr Sodium Chloride (Sodium Chloride 0.9%) 1,000 mls @ 100 mls/hr IV .Q10H [facility] Sodium Chloride (Sodium Chloride 0.9%) 1,000 mls @ 999 mls/hr IV .Q1H1M [facility] Stop: 05/02/17 01:33 Midazolam HCl (Versed Inj) 2 mg IVP Q2 PRN PRN Reason: Agitation Last Admin: 05/01/17 02:03 Dose: 2 mg Midodrine (Proamatine) 10 mg PO TID [facility] Last Admin: 05/01/17 17:23 Dose: 10 mg Multivitamins/Minerals (Therapeutic-M Tab) 1 tab PO 0800 [facility] Last Admin: 05/01/17 08:18 Dose: Not Given Ondansetron HCl (Zofran Inj) 4 mg IVP Q6H PRN PRN Reason: Nausea/Vomiting Pantoprazole Sodium (Protonix Inj) 40 mg IVP DAILY [facility] Last Admin: 05/01/17 09:45 Dose: Not Given Vitamin A (Vitamin A&D) 1 applic TP Q8 PRN PRN Reason: dry, cracked lips - Labs Labs: 05/02/17 00:12 05/01/17 17:50 PT 19.0 SECONDS (9.4-12.5) H 05/02/17 00:12 INR 1.72 (0.93-1.08) H 05/02/17 00:12 APTT 34.3 Seconds (25.1-36.5) 05/01/17 16:54 Attending/Attestation - Attestation I have personally seen and examined this patient.: Yes I have fully participated in the care of the patient.: Yes I have reviewed all pertinent clinical information, including history, physical exam and plan: Yes Notes (Text): 05/02/17 01:15 I agree with the above; Case discussed directly with the CT Surgeon, Dr. Cunningham. States he will be coming in to evaluate the patient and possible return to the OR for repeat thoracotomy with washout. In the interim the patient will be aggressively resuscitated with blood products, including 4 units of PRBC, 4 units of FFP and 2 Units of PLT. I have personally discussed the urgency for blood products with the snow technician at our blood bank and as of this note, the patient has been started on his 2nd of 4 PRBC's (4th unit since the patient has been in the ICU post-operatively). 05/02/17 04:36 Dr He came in overnight to evaluate the patient at bedside. Hemodynamics improved with the use of vasopressor support, IVF as well as PRBC/FFP transfusion. Patient to continue to receive blood products, return to OR for repeat thoracotomy is on hold for now.
[2017-05-02 01:09] LABS: INR 1.72 (0.93-1.08)
[2017-05-02] MEDS: Albuterol-Ipratrop 3 mg / 0.5 (3 ml) UD IH SCH ×4 (01:41→19:45)
[2017-05-02] MEDS: Meropenem 1 GM in Dextrose 5% In Water 100 ML IVPB SCH ×3 (05:23→21:31)
[2017-05-02] MEDS: Dexmedetomidine HCl 4mcg/ml 400 MCG/100 ML BOTTLE IV PRN (05:37)
[2017-05-02 05:42] LABS: ARTERIAL BLOOD GAS HCO3 17.1 mmol/L (21-28); ARTERIAL BLOOD GAS O2 CAPACITY 11.1 mL/dl (16-24); ARTERIAL BLOOD GAS O2 CONTENT 11.1 ML/dl (15-23); ARTERIAL BLOOD GAS PH 7.35 (7.35-7.45); ARTERIAL BLOOD HGB O2 SAT 97.1 % (95.0-98.0); CARBOXYHEMOGLOBIN 2.3 % (0.5-1.5); HHB -0.4 % (0-5)
[2017-05-02 06:18] LABS: BASO # 0.01 K/mm3 (0.0-2.0); EOS % 0.1 % (1.5-5.0); GRAN # 19.45 (1.4-6.5); LYMPH # 1.1 (1.2-3.4); MEAN CELL VOLUME 86.2 fl (80.0-105.0); MEAN CORPUSCULAR HEMOGLOBIN 29.6 pg (25.0-35.0); MEAN CORPUSCULAR HGB CONC 34.3 g/dl (31.0-37.0); MEAN PLATELET VOLUME 11.6 fl (7.0-11.0); MONO # 1.8 (0.1-0.6); MONO % 7.9 % (1.0-6.0); PLATELET COUNT 65 10^3/uL (120.0-450.0); RED CELL DISTRIBUTION WIDTH 17.2 % (11.5-14.5); WHITE BLOOD COUNT 22.4 10^3/ul (4.5-11.0)
[2017-05-02 06:29] LABS: HEMATOCRIT 21.3 % (42.0-52.0)
[2017-05-02 06:31] LABS: ALB/GLOB RATIO 1.2 (1.1-1.8); ALKALINE PHOSPHATASE 45 U/L (38-126); ALT/SGPT 35 U/L (7-56); AST/SGOT 24 U/L (17-59); BLOOD UREA NITROGEN 30 mg/dL (7-21); CARBON DIOXIDE 17 mmol/L (21-33); CHLORIDE 119 mmol/L (98-107); GFR AFRICAN-AMERICAN > 60; GLUCOSE,RANDOM 162 mg/dL (70-110); MAGNESIUM 1.8 mg/dL (1.7-2.2); PHOSPHOROUS 4.1 mg/dL (2.5-4.5); POTASSIUM 4.3 mmol/L (3.6-5.0); SODIUM 145 mmol/L (132-148); TOTAL PROTEIN 3.9 g/dL (5.8-8.3)
[2017-05-02 06:32] LABS: INR 1.7 (0.93-1.08); PARTIAL THROMBOPLASTIN TIME 32.3 Seconds (25.1-36.5)
[2017-05-02] MEDS: Fentanyl 1000mcg/100ml NS 1,000 MCG/100 ML BAG IV PRN ×2 (07:18→17:41)
--- NOTE | 2017-05-02 07:41 | CP.CCUPN ---
CCU Objective - Vital Signs / Intake & Output Vital Signs (Last 4 hours): Vital Signs Temp Pulse BP Pulse Ox 05/02/17 06:00 106 H 05/02/17 05:48 94.3 F L 108 H 92/38 L 100 05/02/17 05:47 111 H 05/02/17 05:46 111 H 05/02/17 05:45 112 H 05/02/17 05:44 112 H 05/02/17 05:43 110 H 05/02/17 05:42 113 H 05/02/17 05:41 111 H 05/02/17 05:40 113 H 05/02/17 05:39 113 H 05/02/17 05:30 95 F L 111 H 98/63 L 05/02/17 04:50 96 F L 111 H 94/61 L 05/02/17 04:41 114 H 113/93 H 77 L 05/02/17 04:40 108 H 100 05/02/17 04:30 111 H 102/65 85 L 05/02/17 04:20 97.7 F 112 H 97/62 L 100 05/02/17 04:10 110 H 100 05/02/17 04:03 97.5 F L 112 H 102/66 05/02/17 04:00 105 H 101/47 L 86 L 05/02/17 03:50 109 H 100 Intake and Output (Last 8hrs): Intake & Output 05/01/17 05/02/17 05/02/17 22:59 06:59 14:59 Intake Total 135 4157 65 Output Total 650 2440 Balance -515 1717 65 Intake: IV 135 4157 65 ANTIBIOTIC 350 bolus 1000 ffp 619 prbc 1945 Output: Chest Tube Drainage 650 2040 Left Mid-Axillary Chest 650 2040 Urine 400 Urethral (Yu) 400 - Physical Exam Head: Positive for: Atraumatic, Normocephalic Extroacular Muscles: Positive for: Other (senile archus) Conjunctiva: Positive for: Normal Ears: Positive for: Normal Mouth: Positive for: Moist Mucous Membranes, Other (OGT in place, ET tube in place with bite lock) Pharnyx: Negative for: ERYTHEMA, EXUDATE Nose (External): Positive for: Atraumatic Neck: Positive for: Trachea Midline. Negative for: Meningeal Signs Respiratory/Chest: Positive for: Good Air Exchange, Decreased Breath Sounds (on left base). Negative for: Respiratory Distress, Wheezes, Rales, Rhonchi Cardiovascular: Positive for: Normal S1, S2. Negative for: Murmurs, Rub, Gallop Abdomen: Positive for: Normal Bowel Sounds. Negative for: Tenderness, Distention Back: Negative for: CVA Tenderness Upper Extremity: Positive for: Normal Inspection. Negative for: Cyanosis, Edema , Tenderness Lower Extremity: Positive for: Normal Inspection. Negative for: Edema, CALF TENDERNESS Neurological: Positive for: Other (intubated and sedated) Skin: Positive for: Warm, Dry Psychiatric: Positive for: Other (intubated and sedated) - Medications Active Medications: Active Medications Generic Name Dose Route Start Last Admin Trade Name Freq PRN Reason Stop Dose Admin Acetaminophen 650 mg 04/23/17 16:13 Tylenol 325mg Tab PO Q6H PRN Fever >100.4 F Albumin Human 12.5 gm 05/01/17 20:19 05/02/17 03:45 Albumin Human 25% (12.5 Gm/50 Ml) IV 05/02/17 16:01 12.5 gm Q4 CEM Administration Albumin Human 12.5 gm 05/02/17 07:45 Albumin Human 5% (12.5 Gm/250 Ml) IV 05/02/17 09:46 Q1H CEM Albuterol/Ipratropium 3 ml 04/23/17 20:00 05/02/17 01:41 Duoneb 3 Mg/0.5 Mg (3 Ml) Ud IH 3 ml [id number] CEM Administration Albuterol/Ipratropium 3 ml 04/23/17 16:13 04/24/17 23:34 Duoneb 3 Mg/0.5 Mg (3 Ml) Ud IH 3 ml Q2H PRN Administration Shortness of Breath Albuterol/Ipratropium 3 ml 04/25/17 00:07 04/25/17 00:30 Duoneb 3 Mg/0.5 Mg (3 Ml) Ud IH 3 ml Q2H PRN Administration Shortness of Breath Chlorhexidine Gluconate 15 ml 04/26/17 18:00 05/01/17 17:47 Peridex PO 15 ml BID CEM Administration Folic Acid 1 mg 04/27/17 12:00 05/01/17 09:31 Folic Acid PO Not Given DAILY CEM Guaifenesin/Dextromethorphan 5 ml 04/24/17 19:29 Robitussin Dm PO Q6H PRN Cough Heparin Sodium (Porcine) 5,000 units 04/30/17 10:00 04/30/17 22:49 Heparin SC Not Given Q8 CEM Protocol Hydrocortisone Sodium Succinate 50 mg 05/02/17 10:00 Solu-Cortef IVP DAILY CEM Azithromycin 500 mg in 250 mls @ 167 mls/hr 04/24/17 10:00 05/01/17 09:47 Zithromax 500mg In Ns IVPB 167 mls/hr DAILY CEM Administration Protocol Norepinephrine Bitartrate 8 mg 258 mls @ 7.74 mls/hr 04/25/17 22:48 05/02/17 07:19 / Sodium Chloride IV 12 mcg/min .Q24H PRN 23.22 mls/hr TITRATE PER PROTOCOL Titration Protocol 4 MCG/MIN Meropenem 1 gm/ Dextrose 100 mls @ 100 mls/hr 04/27/17 14:00 05/02/17 05:23 IVPB 05/06/17 14:01 100 mls/hr Q8 CEM Administration Protocol Vasopressin 20 units/ Sodium 101 mls @ 9.09 mls/hr 04/30/17 08:00 04/30/17 10 :10 Chloride IV 9.09 mls/hr .Q11H7M CEM Administration Protocol 0.03 U/MIN Fentanyl Citrate 1,000 mcg in 100 mls @ 2 mls/hr 04/30/17 18:38 05/02/17 07: 18 Fentanyl Citrate/Sodium Chloride 1 Mg/100 Ml IV 100 mcg/hr .Q24H PRN 10 mls/hr TITRATE PER MD ORDER Administration Protocol 20 MCG/HR Sodium Chloride 1,000 mls @ 100 mls/hr 05/01/17 23:45 05/01/17 00:00 Sodium Chloride 0.9% IV 100 mls/hr .Q10H CEM Administration Sodium Bicarbonate 150 meq/ 1,150 mls @ 150 mls/hr 05/02/17 07:30 Dextrose IV .Q7H40M CEM Midazolam 100 mg/100ml in NS 100 mg in 100 mls @ 1 mls/hr 05/02/17 07:34 Midazolam 100 Mg/100ml In Ns IV .Q24H PRN Agitation Protocol 1 MG/HR Midazolam HCl 2 mg 04/29/17 09:28 05/01/17 02:03 Versed Inj IVP 2 mg Q2 PRN Administration Agitation Midodrine 10 mg 04/30/17 10:00 05/01/17 17:23 Proamatine PO 10 mg TID CEM Administration Multivitamins/Minerals 1 tab 04/26/17 12:00 05/01/17 08:18 Therapeutic-M Tab PO Not Given 0800 CEM Ondansetron HCl 4 mg 04/23/17 16:13 Zofran Inj IVP Q6H PRN Nausea/Vomiting Pantoprazole Sodium 40 mg 04/23/17 16:15 05/01/17 09:45 Protonix Inj IVP Not Given DAILY CEM Vitamin A 1 applic 04/30/17 23:48 Vitamin A&D TP Q8 PRN dry, cracked lips - Patient Studies Lab Studies: Microbiology Studies 05/01/17 15:23 Gram Stain - Final Other: Please Indicate Lab Studies 05/02/17 05/02/17 05/02/17 Range/Units 05:20 05:00 05:00 WBC RBC Hgb Hct MCV MCH MCHC RDW Plt Count MPV Gran % Lymph % (Auto) [place] % (Auto) Eos % (Auto) Baso % (Auto) Gran # Lymph # [place] # Eos # Baso # Corrected WBC (Man) Neutrophils % (Manual) Band Neutrophils % Lymphocytes % (Manual) Atypical Lymphs % Monocytes % (Manual) Eosinophils % (Manual) Basophils % (Manual) Metamyelocytes % Myelocytes % Promyelocytes % Nucleated RBC % Hypersegmented Polys Immature Lymphocytes Blast Cells Smudge Cells Toxic Granulation Dohle Bodies Arlene Rods Platelet Evaluation Plt Clumps, EDTA Large Platelets Giant Platelets Polychromasia Hypochromasia Hyperchromasia Poikilocytosis (manual Basophilic Stippling Anisocytosis (manual) Microcytosis (manual) Macrocytosis (manual) Spherocytes Sickle Cells Target Cells Tear Drop Cells Ovalocytes Stomatocytes Helmet Cells Barco Rings Morris Cells Acanthocytes (Spur) Rouleaux Schistocytes PT 18.9 H (9.4-12.5) SECONDS INR 1.70 H (0.93-1.08) APTT 32.3 (25.1-36.5) Seconds pCO2 31 L (35-45) mm/Hg pO2 217.0 H (80-100) mm/Hg HCO3 17.1 L (21-28) mmol/L ABG pH 7.35 (7.35-7.45) ABG Total CO2 18.1 L (22-28) mmol.L ABG O2 Saturation 100.4 H (95-98) % ABG O2 Content 11.1 L (15-23) ML/dl ABG Base Excess -7.7 L (-2.0-3.0) mmol/L ABG Hemoglobin 7.7 L (11.7-17.4) g/dL ABG Carboxyhemoglobin 2.3 H (0.5-1.5) % POC ABG HHb (Measured) -0.4 L (0-5) % ABG Methemoglobin 1.0 (0.0-3.0) % ABG O2 Capacity 11.1 L (16-24) mL/dl ABG Potassium (3.6-5.2) mmol/L Hgb O2 Saturation 97.1 (95.0-98.0) % Sodium 145 (132-148) mmol/L Chloride 119 H (98-107) mmol/L Glucose (75-110) mg/dl Lactate (0.7-2.1) mmol/L Mechanical Rate FiO2 60.0 % Tidal Volume PEEP Potassium 4.3 (3.6-5.0) mmol/L Carbon Dioxide 17 L (21-33) mmol/L Anion Gap 13 (10-20) BUN 30 H (7-21) mg/dL Creatinine 0.8 (0.8-1.5) mg/dL Est GFR ( Amer) > 60 Est GFR (Non-Af Amer) > 60 Random Glucose 162 H (70-110) mg/dL Calcium 8.0 L (8.4-10.5) mg/dL Phosphorus 4.1 (2.5-4.5) mg/dL Magnesium 1.8 (1.7-2.2) mg/dL Total Bilirubin 3.0 H (0.2-1.3) mg/dL AST 24 (17-59) U/L ALT 35 (7-56) U/L Alkaline Phosphatase 45 (38-126) U/L Total Protein 3.9 L (5.8-8.3) g/dL Albumin 2.1 L (3.0-4.8) g/dL Globulin 1.8 gm/dL Albumin/Globulin Ratio 1.2 (1.1-1.8) Arterial Blood Potassium (3.6-5.2) mmol/L Blood Type Antibody Screen Crossmatch BBK History Checked 05/02/17 05/02/17 05/02/17 Range/Units 05:00 00:42 00:12 WBC 22.4 H RBC 2.47 L Hgb 7.3 L D Hct 21.3 L MCV 86.2 MCH 29.6 MCHC 34.3 RDW 17.2 H Plt Count 65 L MPV 11.6 H Gran % 87.0 H Lymph % (Auto) 5.[address] [place] % (Auto) 7.9 H Eos % (Auto) 0.1 L Baso % (Auto) 0.0 Gran # 19.45 H Lymph # 1.[address] [place] # 1.8 H Eos # 0.0 Baso # 0.01 Corrected WBC (Man) Neutrophils % (Manual) Band Neutrophils % Lymphocytes % (Manual) Atypical Lymphs % Monocytes % (Manual) Eosinophils % (Manual) Basophils % (Manual) Metamyelocytes % Myelocytes % Promyelocytes % Nucleated RBC % Hypersegmented Polys Immature Lymphocytes Blast Cells Smudge Cells Toxic Granulation Dohle Bodies Arlene Rods Platelet Evaluation Plt Clumps, EDTA Large Platelets Giant Platelets Polychromasia Hypochromasia Hyperchromasia Poikilocytosis (manual Basophilic Stippling Anisocytosis (manual) Microcytosis (manual) Macrocytosis (manual) Spherocytes Sickle Cells Target Cells Tear Drop Cells Ovalocytes Stomatocytes Helmet Cells Barco Rings Lizbeth Cells Acanthocytes (Spur) Rouleaux Schistocytes PT 19.0 H (9.4-12.5) SECONDS INR 1.72 H (0.93-1.08) APTT (25.1-36.5) Seconds pCO2 36 (35-45) mm/Hg pO2 217.0 H (80-100) mm/Hg HCO3 19.0 L (21-28) mmol/L ABG pH 7.33 L (7.35-7.45) ABG Total CO2 20.1 L (22-28) mmol.L ABG O2 Saturation 100.3 H (95-98) % ABG O2 Content (15-23) ML/dl ABG Base Excess -6.2 L (-2.0-3.0) mmol/L ABG Hemoglobin (11.7-17.4) g/dL ABG Carboxyhemoglobin (0.5-1.5) % POC ABG HHb (Measured) (0-5) % ABG Methemoglobin (0.0-3.0) % ABG O2 Capacity (16-24) mL/dl ABG Potassium 4.0 (3.6-5.2) mmol/L Hgb O2 Saturation (95.0-98.0) % Sodium 143.0 (132-148) mmol/L Chloride 120.0 H (98-107) mmol/L Glucose 188 H (75-110) mg/dl Lactate 2.1 (0.7-2.1) mmol/L Mechanical Rate 18 FiO2 60.0 % Tidal Volume 400 PEEP 5 Potassium (3.6-5.0) mmol/L Carbon Dioxide (21-33) mmol/L Anion Gap (10-20) BUN (7-21) mg/dL Creatinine (0.8-1.5) mg/dL Est GFR ( Amer) Est GFR (Non-Af Amer) Random Glucose (70-110) mg/dL Calcium (8.4-10.5) mg/dL Phosphorus (2.5-4.5) mg/dL Magnesium (1.7-2.2) mg/dL Total Bilirubin (0.2-1.3) mg/dL AST (17-59) U/L ALT (7-56) U/L Alkaline Phosphatase (38-126) U/L Total Protein (5.8-8.3) g/dL Albumin (3.0-4.8) g/dL Globulin gm/dL Albumin/Globulin Ratio (1.1-1.8) Arterial Blood Potassium 4.0 (3.6-5.2) mmol/L Blood Type Antibody Screen Crossmatch BBK History Checked 05/02/17 05/01/17 05/01/17 Range/Units 00:12 23:30 23:30 WBC 19.4 H D 15.1 H D RBC 1.75 L 1.75 L Hgb 5.2 L* 5.1 L* D Hct 15.6 L* 15.4 L* MCV 89.1 88.0 D MCH 29.7 29.1 MCHC 33.3 33.1 RDW 17.8 H 17.4 H Plt Count 74 L 67 L MPV 10.4 10.5 Gran % Lymph % (Auto) [place] % (Auto) Eos % (Auto) Baso % (Auto) Gran # Lymph # [place] # Eos # Baso # Corrected WBC (Man) Neutrophils % (Manual) Band Neutrophils % Lymphocytes % (Manual) Atypical Lymphs % Monocytes % (Manual) Eosinophils % (Manual) Basophils % (Manual) Metamyelocytes % Myelocytes % Promyelocytes % Nucleated RBC % Hypersegmented Polys Immature Lymphocytes Blast Cells Smudge Cells Toxic Granulation Dohle Bodies Arlene Rods Platelet Evaluation Plt Clumps, EDTA Large Platelets Giant Platelets Polychromasia Hypochromasia Hyperchromasia Poikilocytosis (manual Basophilic Stippling Anisocytosis (manual) Microcytosis (manual) Macrocytosis (manual) Spherocytes Sickle Cells Target Cells Tear Drop Cells Ovalocytes Stomatocytes Helmet Cells Barco Rings Morris Cells Acanthocytes (Spur) Rouleaux Schistocytes PT 19.9 H (9.4-12.5) SECONDS INR 1.80 H (0.93-1.08) APTT (25.1-36.5) Seconds pCO2 (35-45) mm/Hg pO2 (80-100) mm/Hg HCO3 (21-28) mmol/L ABG pH (7.35-7.45) ABG Total CO2 (22-28) mmol.L ABG O2 Saturation (95-98) % ABG O2 Content (15-23) ML/dl ABG Base Excess (-2.0-3.0) mmol/L ABG Hemoglobin (11.7-17.4) g/dL ABG Carboxyhemoglobin (0.5-1.5) % POC ABG HHb (Measured) (0-5) % ABG Methemoglobin (0.0-3.0) % ABG O2 Capacity (16-24) mL/dl ABG Potassium (3.6-5.2) mmol/L Hgb O2 Saturation (95.0-98.0) % Sodium (132-148) mmol/L Chloride (98-107) mmol/L Glucose (75-110) mg/dl Lactate (0.7-2.1) mmol/L Mechanical Rate FiO2 % Tidal Volume PEEP Potassium (3.6-5.0) mmol/L Carbon Dioxide (21-33) mmol/L Anion Gap (10-20) BUN (7-21) mg/dL Creatinine (0.8-1.5) mg/dL Est GFR ( Amer) Est GFR (Non-Af Amer) Random Glucose (70-110) mg/dL Calcium (8.4-10.5) mg/dL Phosphorus (2.5-4.5) mg/dL Magnesium (1.7-2.2) mg/dL Total Bilirubin (0.2-1.3) mg/dL AST (17-59) U/L ALT (7-56) U/L Alkaline Phosphatase (38-126) U/L Total Protein (5.8-8.3) g/dL Albumin (3.0-4.8) g/dL Globulin gm/dL Albumin/Globulin Ratio (1.1-1.8) Arterial Blood Potassium (3.6-5.2) mmol/L Blood Type Antibody Screen Crossmatch BBK History Checked 05/01/17 05/01/17 05/01/17 Range/Units 17:50 17:50 17:21 WBC 20.7 H RBC 2.42 L Hgb 7.7 L D Hct 23.2 L MCV 95.9 MCH 31.8 MCHC 33.2 RDW 15.2 H Plt Count 131 MPV 10.7 Gran % 89.5 H Lymph % (Auto) 4.[address] [place] % (Auto) 5.9 Eos % (Auto) 0.0 L Baso % (Auto) 0.0 Gran # 18.46 H Lymph # 1.[address] [place] # 1.2 H Eos # 0.0 Baso # 0.01 Corrected WBC (Man) Neutrophils % (Manual) Band Neutrophils % Lymphocytes % (Manual) Atypical Lymphs % Monocytes % (Manual) Eosinophils % (Manual) Basophils % (Manual) Metamyelocytes % Myelocytes % Promyelocytes % Nucleated RBC % Hypersegmented Polys Immature Lymphocytes Blast Cells Smudge Cells Toxic Granulation Dohle Bodies Arlene Rods Platelet Evaluation Plt Clumps, EDTA Large Platelets Giant Platelets Polychromasia Hypochromasia Hyperchromasia Poikilocytosis (manual Basophilic Stippling Anisocytosis (manual) Microcytosis (manual) Macrocytosis (manual) Spherocytes Sickle Cells Target Cells Tear Drop Cells Ovalocytes Stomatocytes Helmet Cells Barco Rings Lizbeth Cells Acanthocytes (Spur) Rouleaux Schistocytes PT (9.4-12.5) SECONDS INR (0.93-1.08) APTT (25.1-36.5) Seconds pCO2 32 L (35-45) mm/Hg pO2 73.0 L (80-100) mm/Hg HCO3 19.4 L (21-28) mmol/L ABG pH 7.39 (7.35-7.45) ABG Total CO2 20.4 L (22-28) mmol.L ABG O2 Saturation 98.4 H (95-98) % ABG O2 Content (15-23) ML/dl ABG Base Excess -4.6 L (-2.0-3.0) mmol/L ABG Hemoglobin (11.7-17.4) g/dL ABG Carboxyhemoglobin (0.5-1.5) % POC ABG HHb (Measured) (0-5) % ABG Methemoglobin (0.0-3.0) % ABG O2 Capacity (16-24) mL/dl ABG Potassium 4.4 (3.6-5.2) mmol/L Hgb O2 Saturation (95.0-98.0) % Sodium 141 144.0 (132-148) mmol/L Chloride 119 H 121.0 H (98-107) mmol/L Glucose 158 H (75-110) mg/dl Lactate 1.3 (0.7-2.1) mmol/L Mechanical Rate FiO2 40.0 % Tidal Volume PEEP Potassium 4.5 (3.6-5.0) mmol/L Carbon Dioxide 18 L (21-33) mmol/L Anion Gap 9 L (10-20) BUN 27 H (7-21) mg/dL Creatinine 0.7 L (0.8-1.5) mg/dL Est GFR ( Amer) > 60 Est GFR (Non-Af Amer) > 60 Random Glucose 153 H (70-110) mg/dL Calcium 7.8 L (8.4-10.5) mg/dL Phosphorus (2.5-4.5) mg/dL Magnesium (1.7-2.2) mg/dL Total Bilirubin 1.6 H (0.2-1.3) mg/dL AST 29 (17-59) U/L ALT 40 (7-56) U/L Alkaline Phosphatase 88 (38-126) U/L Total Protein 4.0 L (5.8-8.3) g/dL Albumin 1.8 L (3.0-4.8) g/dL Globulin 2.2 gm/dL Albumin/Globulin Ratio 0.8 L (1.1-1.8) Arterial Blood Potassium 4.4 (3.6-5.2) mmol/L Blood Type Antibody Screen Crossmatch BBK History Checked 05/01/17 05/01/17 05/01/17 Range/Units 16:54 16:54 09:30 WBC Cancelled RBC Cancelled Hgb Cancelled Hct Cancelled MCV Cancelled MCH Cancelled MCHC Cancelled RDW Cancelled Plt Count Cancelled MPV Cancelled Gran % Cancelled Lymph % (Auto) Cancelled [place] % (Auto) Cancelled Eos % (Auto) Cancelled Baso % (Auto) Cancelled Gran # Cancelled Lymph # Cancelled [place] # Cancelled Eos # Cancelled Baso # Cancelled Corrected WBC (Man) Cancelled Neutrophils % (Manual) Cancelled Band Neutrophils % Cancelled Lymphocytes % (Manual) Cancelled Atypical Lymphs % Cancelled Monocytes % (Manual) Cancelled Eosinophils % (Manual) Cancelled Basophils % (Manual) Cancelled Metamyelocytes % Cancelled Myelocytes % Cancelled Promyelocytes % Cancelled Nucleated RBC % Cancelled Hypersegmented Polys Cancelled Immature Lymphocytes Cancelled Blast Cells Cancelled Smudge Cells Cancelled Toxic Granulation Cancelled Dohle Bodies Cancelled Arlene Rods Cancelled Platelet Evaluation Cancelled Plt Clumps, EDTA Cancelled Large Platelets Cancelled Giant Platelets Cancelled Polychromasia Cancelled Hypochromasia Cancelled Hyperchromasia Cancelled Poikilocytosis (manual Cancelled Basophilic Stippling Cancelled Anisocytosis (manual) Cancelled Microcytosis (manual) Cancelled Macrocytosis (manual) Cancelled Spherocytes Cancelled Sickle Cells Cancelled Target Cells Cancelled Tear Drop Cells Cancelled Ovalocytes Cancelled Stomatocytes Cancelled Helmet Cells Cancelled Barco Rings Cancelled Lizbeht Cells Cancelled Acanthocytes (Spur) Cancelled Rouleaux Cancelled Schistocytes Cancelled PT 17.2 H (9.4-12.5) SECONDS INR 1.56 H (0.93-1.08) APTT 34.3 (25.1-36.5) Seconds pCO2 34 L (35-45) mm/Hg pO2 137.0 H (80-100) mm/Hg HCO3 19.2 L (21-28) mmol/L ABG pH 7.36 (7.35-7.45) ABG Total CO2 20.2 L (22-28) mmol.L ABG O2 Saturation 99.3 H (95-98) % ABG O2 Content 14.2 L (15-23) ML/dl ABG Base Excess -5.6 L (-2.0-3.0) mmol/L ABG Hemoglobin 10.3 L (11.7-17.4) g/dL ABG Carboxyhemoglobin 1.6 H (0.5-1.5) % POC ABG HHb (Measured) 0.7 (0-5) % ABG Methemoglobin 1.2 (0.0-3.0) % ABG O2 Capacity 14.3 L (16-24) mL/dl ABG Potassium (3.6-5.2) mmol/L Hgb O2 Saturation 96.5 (95.0-98.0) % Sodium (132-148) mmol/L Chloride (98-107) mmol/L Glucose (75-110) mg/dl Lactate (0.7-2.1) mmol/L Mechanical Rate FiO2 40.0 % Tidal Volume PEEP Potassium (3.6-5.0) mmol/L Carbon Dioxide (21-33) mmol/L Anion Gap (10-20) BUN (7-21) mg/dL Creatinine (0.8-1.5) mg/dL Est GFR ( Amer) Est GFR (Non-Af Amer) Random Glucose (70-110) mg/dL Calcium (8.4-10.5) mg/dL Phosphorus (2.5-4.5) mg/dL Magnesium (1.7-2.2) mg/dL Total Bilirubin (0.2-1.3) mg/dL AST (17-59) U/L ALT (7-56) U/L Alkaline Phosphatase (38-126) U/L Total Protein (5.8-8.3) g/dL Albumin (3.0-4.8) g/dL Globulin gm/dL Albumin/Globulin Ratio (1.1-1.8) Arterial Blood Potassium (3.6-5.2) mmol/L Blood Type Antibody Screen Crossmatch BBK History Checked 04/30/17 Range/Units 18:47 WBC RBC Hgb Hct MCV MCH MCHC RDW Plt Count MPV Gran % Lymph % (Auto) [place] % (Auto) Eos % (Auto) Baso % (Auto) Gran # Lymph # [place] # Eos # Baso # Corrected WBC (Man) Neutrophils % (Manual) Band Neutrophils % Lymphocytes % (Manual) Atypical Lymphs % Monocytes % (Manual) Eosinophils % (Manual) Basophils % (Manual) Metamyelocytes % Myelocytes % Promyelocytes % Nucleated RBC % Hypersegmented Polys Immature Lymphocytes Blast Cells Smudge Cells Toxic Granulation Dohle Bodies Arlene Rods Platelet Evaluation Plt Clumps, EDTA Large Platelets Giant Platelets Polychromasia Hypochromasia Hyperchromasia Poikilocytosis (manual Basophilic Stippling Anisocytosis (manual) Microcytosis (manual) Macrocytosis (manual) Spherocytes Sickle Cells Target Cells Tear Drop Cells Ovalocytes Stomatocytes Helmet Cells Barco Rings Morris Cells Acanthocytes (Spur) Rouleaux Schistocytes PT (9.4-12.5) SECONDS INR (0.93-1.08) APTT (25.1-36.5) Seconds pCO2 (35-45) mm/Hg pO2 (80-100) mm/Hg HCO3 (21-28) mmol/L ABG pH (7.35-7.45) ABG Total CO2 (22-28) mmol.L ABG O2 Saturation (95-98) % ABG O2 Content (15-23) ML/dl ABG Base Excess (-2.0-3.0) mmol/L ABG Hemoglobin (11.7-17.4) g/dL ABG Carboxyhemoglobin (0.5-1.5) % POC ABG HHb (Measured) (0-5) % ABG Methemoglobin (0.0-3.0) % ABG O2 Capacity (16-24) mL/dl ABG Potassium (3.6-5.2) mmol/L Hgb O2 Saturation (95.0-98.0) % Sodium (132-148) mmol/L Chloride (98-107) mmol/L Glucose (75-110) mg/dl Lactate (0.7-2.1) mmol/L Mechanical Rate FiO2 % Tidal Volume PEEP Potassium (3.6-5.0) mmol/L Carbon Dioxide (21-33) mmol/L Anion Gap (10-20) BUN (7-21) mg/dL Creatinine (0.8-1.5) mg/dL Est GFR ( Amer) Est GFR (Non-Af Amer) Random Glucose (70-110) mg/dL Calcium (8.4-10.5) mg/dL Phosphorus (2.5-4.5) mg/dL Magnesium (1.7-2.2) mg/dL Total Bilirubin (0.2-1.3) mg/dL AST (17-59) U/L ALT (7-56) U/L Alkaline Phosphatase (38-126) U/L Total Protein (5.8-8.3) g/dL Albumin (3.0-4.8) g/dL Globulin gm/dL Albumin/Globulin Ratio (1.1-1.8) Arterial Blood Potassium (3.6-5.2) mmol/L Blood Type O POSITIVE Antibody Screen Negative Crossmatch See Detail BBK History Checked No verified bt Laboratory Results - last 24 hr 04/30/17 05/01/17 05/01/17 18:47 09:30 16:54 WBC Cancelled RBC Cancelled Hgb Cancelled Hct Cancelled MCV Cancelled MCH Cancelled MCHC Cancelled RDW Cancelled Plt Count Cancelled MPV Cancelled Gran % Cancelled Lymph % (Auto) Cancelled [place] % (Auto) Cancelled Eos % (Auto) Cancelled Baso % (Auto) Cancelled Gran # Cancelled Lymph # Cancelled [place] # Cancelled Eos # Cancelled Baso # Cancelled Corrected WBC (Man) Cancelled Neutrophils % (Manual) Cancelled Band Neutrophils % Cancelled Lymphocytes % (Manual) Cancelled Atypical Lymphs % Cancelled Monocytes % (Manual) Cancelled Eosinophils % (Manual) Cancelled Basophils % (Manual) Cancelled Metamyelocytes % Cancelled Myelocytes % Cancelled Promyelocytes % Cancelled Nucleated RBC % Cancelled Hypersegmented Polys Cancelled Immature Lymphocytes Cancelled Blast Cells Cancelled Smudge Cells Cancelled Toxic Granulation Cancelled Dohle Bodies Cancelled Arlene Rods Cancelled Platelet Evaluation Cancelled Plt Clumps, EDTA Cancelled Large Platelets Cancelled Giant Platelets Cancelled Polychromasia Cancelled Hypochromasia Cancelled Hyperchromasia Cancelled Poikilocytosis (manual Cancelled Basophilic Stippling Cancelled Anisocytosis (manual) Cancelled Microcytosis (manual) Cancelled Macrocytosis (manual) Cancelled Spherocytes Cancelled Sickle Cells Cancelled Target Cells Cancelled Tear Drop Cells Cancelled Ovalocytes Cancelled Stomatocytes Cancelled Helmet Cells Cancelled Barco Rings Cancelled Morris Cells Cancelled Acanthocytes (Spur) Cancelled Rouleaux Cancelled Schistocytes Cancelled PT INR APTT pCO2 34 L pO2 137.0 H HCO3 19.2 L ABG pH 7.36 ABG Total CO2 20.2 L ABG O2 Saturation 99.3 H ABG O2 Content 14.2 L ABG Base Excess -5.6 L ABG Hemoglobin 10.3 L ABG Carboxyhemoglobin 1.6 H POC ABG HHb (Measured) 0.7 ABG Methemoglobin 1.2 ABG O2 Capacity 14.3 L ABG Potassium Hgb O2 Saturation 96.5 Sodium Chloride Glucose Lactate Mechanical Rate FiO2 40.0 Tidal Volume PEEP Potassium Carbon Dioxide Anion Gap BUN Creatinine Est GFR ( Amer) Est GFR (Non-Af Amer) Random Glucose Calcium Phosphorus Magnesium Total Bilirubin AST ALT Alkaline Phosphatase Total Protein Albumin Globulin Albumin/Globulin Ratio Arterial Blood Potassium Blood Type O POSITIVE Antibody Screen Negative Crossmatch See Detail BBK History Checked No verified bt 05/01/17 05/01/17 05/01/17 16:54 17:21 17:50 WBC RBC Hgb Hct MCV MCH MCHC RDW Plt Count MPV Gran % Lymph % (Auto) [place] % (Auto) Eos % (Auto) Baso % (Auto) Gran # Lymph # [place] # Eos # Baso # Corrected WBC (Man) Neutrophils % (Manual) Band Neutrophils % Lymphocytes % (Manual) Atypical Lymphs % Monocytes % (Manual) Eosinophils % (Manual) Basophils % (Manual) Metamyelocytes % Myelocytes % Promyelocytes % Nucleated RBC % Hypersegmented Polys Immature Lymphocytes Blast Cells Smudge Cells Toxic Granulation Dohle Bodies Arlene Rods Platelet Evaluation Plt Clumps, EDTA Large Platelets Giant Platelets Polychromasia Hypochromasia Hyperchromasia Poikilocytosis (manual Basophilic Stippling Anisocytosis (manual) Microcytosis (manual) Macrocytosis (manual) Spherocytes Sickle Cells Target Cells Tear Drop Cells Ovalocytes Stomatocytes Helmet Cells Barco Rings Lizbeth Cells Acanthocytes (Spur) Rouleaux Schistocytes PT 17.2 H INR 1.56 H APTT 34.3 pCO2 32 L pO2 73.0 L HCO3 19.4 L ABG pH 7.39 ABG Total CO2 20.4 L ABG O2 Saturation 98.4 H ABG O2 Content ABG Base Excess -4.6 L ABG Hemoglobin ABG Carboxyhemoglobin POC ABG HHb (Measured) ABG Methemoglobin ABG O2 Capacity ABG Potassium 4.4 Hgb O2 Saturation Sodium 144.0 141 Chloride 121.0 H 119 H Glucose 158 H Lactate 1.3 Mechanical Rate FiO2 40.0 Tidal Volume PEEP Potassium 4.5 Carbon Dioxide 18 L Anion Gap 9 L BUN 27 H Creatinine 0.7 L Est GFR ( Amer) > 60 Est GFR (Non-Af Amer) > 60 Random Glucose 153 H Calcium 7.8 L Phosphorus Magnesium Total Bilirubin 1.6 H AST 29 ALT 40 Alkaline Phosphatase 88 Total Protein 4.0 L Albumin 1.8 L Globulin 2.2 Albumin/Globulin Ratio 0.8 L Arterial Blood Potassium 4.4 Blood Type Antibody Screen Crossmatch BBK History Checked 05/01/17 05/01/17 05/01/17 17:50 23:30 23:30 WBC 20.7 H 15.1 H D RBC 2.42 L 1.75 L Hgb 7.7 L D 5.1 L* D Hct 23.2 L 15.4 L* MCV 95.9 88.0 D MCH 31.8 29.1 MCHC 33.2 33.1 RDW 15.2 H 17.4 H Plt Count 131 67 L MPV 10.7 10.5 Gran % 89.5 H Lymph % (Auto) 4.[address] [place] % (Auto) 5.9 Eos % (Auto) 0.0 L Baso % (Auto) 0.0 Gran # 18.46 H Lymph # 1.0 L [place] # 1.2 H Eos # 0.0 Baso # 0.01 Corrected WBC (Man) Neutrophils % (Manual) Band Neutrophils % Lymphocytes % (Manual) Atypical Lymphs % Monocytes % (Manual) Eosinophils % (Manual) Basophils % (Manual) Metamyelocytes % Myelocytes % Promyelocytes % Nucleated RBC % Hypersegmented Polys Immature Lymphocytes Blast Cells Smudge Cells Toxic Granulation Dohle Bodies Arlene Rods Platelet Evaluation Plt Clumps, EDTA Large Platelets Giant Platelets Polychromasia Hypochromasia Hyperchromasia Poikilocytosis (manual Basophilic Stippling Anisocytosis (manual) Microcytosis (manual) Macrocytosis (manual) Spherocytes Sickle Cells Target Cells Tear Drop Cells Ovalocytes Stomatocytes Helmet Cells Barco Rings Lizbeth Cells Acanthocytes (Spur) Rouleaux Schistocytes PT 19.9 H INR 1.80 H APTT pCO2 pO2 HCO3 ABG pH ABG Total CO2 ABG O2 Saturation ABG O2 Content ABG Base Excess ABG Hemoglobin ABG Carboxyhemoglobin POC ABG HHb (Measured) ABG Methemoglobin ABG O2 Capacity ABG Potassium Hgb O2 Saturation Sodium Chloride Glucose Lactate Mechanical Rate FiO2 Tidal Volume PEEP Potassium Carbon Dioxide Anion Gap BUN Creatinine Est GFR ( Amer) Est GFR (Non-Af Amer) Random Glucose Calcium Phosphorus Magnesium Total Bilirubin AST ALT Alkaline Phosphatase Total Protein Albumin Globulin Albumin/Globulin Ratio Arterial Blood Potassium Blood Type Antibody Screen Crossmatch BBK History Checked 05/02/17 05/02/17 05/02/17 00:12 00:12 00:42 WBC 19.4 H D RBC 1.75 L Hgb 5.2 L* Hct 15.6 L* MCV 89.1 MCH 29.7 MCHC 33.3 RDW 17.8 H Plt Count 74 L MPV 10.4 Gran % Lymph % (Auto) [place] % (Auto) Eos % (Auto) Baso % (Auto) Gran # Lymph # [place] # Eos # Baso # Corrected WBC (Man) Neutrophils % (Manual) Band Neutrophils % Lymphocytes % (Manual) Atypical Lymphs % Monocytes % (Manual) Eosinophils % (Manual) Basophils % (Manual) Metamyelocytes % Myelocytes % Promyelocytes % Nucleated RBC % Hypersegmented Polys Immature Lymphocytes Blast Cells Smudge Cells Toxic Granulation Dohle Bodies Arlene Rods Platelet Evaluation Plt Clumps, EDTA Large Platelets Giant Platelets Polychromasia Hypochromasia Hyperchromasia Poikilocytosis (manual Basophilic Stippling Anisocytosis (manual) Microcytosis (manual) Macrocytosis (manual) Spherocytes Sickle Cells Target Cells Tear Drop Cells Ovalocytes Stomatocytes Helmet Cells Barco Rings Lizbeth Cells Acanthocytes (Spur) Rouleaux Schistocytes PT 19.0 H INR 1.72 H APTT pCO2 36 pO2 217.0 H HCO3 19.0 L ABG pH 7.33 L ABG Total CO2 20.1 L ABG O2 Saturation 100.3 H ABG O2 Content ABG Base Excess -6.2 L ABG Hemoglobin ABG Carboxyhemoglobin POC ABG HHb (Measured) ABG Methemoglobin ABG O2 Capacity ABG Potassium 4.0 Hgb O2 Saturation Sodium 143.0 Chloride 120.0 H Glucose 188 H Lactate 2.1 Mechanical Rate 18 FiO2 60.0 Tidal Volume 400 PEEP 5 Potassium Carbon Dioxide Anion Gap BUN Creatinine Est GFR ( Amer) Est GFR (Non-Af Amer) Random Glucose Calcium Phosphorus Magnesium Total Bilirubin AST ALT Alkaline Phosphatase Total Protein Albumin Globulin Albumin/Globulin Ratio Arterial Blood Potassium 4.0 Blood Type Antibody Screen Crossmatch BBK History Checked 05/02/17 05/02/17 05/02/17 05:00 05:00 05:00 WBC 22.4 H RBC 2.47 L Hgb 7.3 L D Hct 21.3 L MCV 86.2 MCH 29.6 MCHC 34.3 RDW 17.2 H Plt Count 65 L MPV 11.6 H Gran % 87.0 H Lymph % (Auto) 5.[address] [place] % (Auto) 7.9 H Eos % (Auto) 0.1 L Baso % (Auto) 0.0 Gran # 19.45 H Lymph # 1.[address] # 1.8 H Eos # 0.0 Baso # 0.01 Corrected WBC (Man) Neutrophils % (Manual) Band Neutrophils % Lymphocytes % (Manual) Atypical Lymphs % Monocytes % (Manual) Eosinophils % (Manual) Basophils % (Manual) Metamyelocytes % Myelocytes % Promyelocytes % Nucleated RBC % Hypersegmented Polys Immature Lymphocytes Blast Cells Smudge Cells Toxic Granulation Dohle Bodies Arlene Rods Platelet Evaluation Plt Clumps, EDTA Large Platelets Giant Platelets Polychromasia Hypochromasia Hyperchromasia Poikilocytosis (manual Basophilic Stippling Anisocytosis (manual) Microcytosis (manual) Macrocytosis (manual) Spherocytes Sickle Cells Target Cells Tear Drop Cells Ovalocytes Stomatocytes Helmet Cells Barco Rings Morris Cells Acanthocytes (Spur) Rouleaux Schistocytes PT 18.9 H INR 1.70 H APTT 32.3 pCO2 pO2 HCO3 ABG pH ABG Total CO2 ABG O2 Saturation ABG O2 Content ABG Base Excess ABG Hemoglobin ABG Carboxyhemoglobin POC ABG HHb (Measured) ABG Methemoglobin ABG O2 Capacity ABG Potassium Hgb O2 Saturation Sodium 145 Chloride 119 H Glucose Lactate Mechanical Rate FiO2 Tidal Volume PEEP Potassium 4.3 Carbon Dioxide 17 L Anion Gap 13 BUN 30 H Creatinine 0.8 Est GFR ( Amer) > 60 Est GFR (Non-Af Amer) > 60 Random Glucose 162 H Calcium 8.0 L Phosphorus 4.1 Magnesium 1.8 Total Bilirubin 3.0 H AST 24 ALT 35 Alkaline Phosphatase 45 Total Protein 3.9 L Albumin 2.1 L Globulin 1.8 Albumin/Globulin Ratio 1.2 Arterial Blood Potassium Blood Type Antibody Screen Crossmatch BBK History Checked 05/02/17 05:20 WBC RBC Hgb Hct MCV MCH MCHC RDW Plt Count MPV Gran % Lymph % (Auto) [place] % (Auto) Eos % (Auto) Baso % (Auto) Gran # Lymph # [place] # Eos # Baso # Corrected WBC (Man) Neutrophils % (Manual) Band Neutrophils % Lymphocytes % (Manual) Atypical Lymphs % Monocytes % (Manual) Eosinophils % (Manual) Basophils % (Manual) Metamyelocytes % Myelocytes % Promyelocytes % Nucleated RBC % Hypersegmented Polys Immature Lymphocytes Blast Cells Smudge Cells Toxic Granulation Dohle Bodies Arlene Rods Platelet Evaluation Plt Clumps, EDTA Large Platelets Giant Platelets Polychromasia Hypochromasia Hyperchromasia Poikilocytosis (manual Basophilic Stippling Anisocytosis (manual) Microcytosis (manual) Macrocytosis (manual) Spherocytes Sickle Cells Target Cells Tear Drop Cells Ovalocytes Stomatocytes Helmet Cells Barco Rings Lizbeth Cells Acanthocytes (Spur) Rouleaux Schistocytes PT INR APTT pCO2 31 L pO2 217.0 H HCO3 17.1 L ABG pH 7.35 ABG Total CO2 18.1 L ABG O2 Saturation 100.4 H ABG O2 Content 11.1 L ABG Base Excess -7.7 L ABG Hemoglobin 7.7 L ABG Carboxyhemoglobin 2.3 H POC ABG HHb (Measured) -0.4 L ABG Methemoglobin 1.0 ABG O2 Capacity 11.1 L ABG Potassium Hgb O2 Saturation 97.1 Sodium Chloride Glucose Lactate Mechanical Rate FiO2 60.0 Tidal Volume PEEP Potassium Carbon Dioxide Anion Gap BUN Creatinine Est GFR ( Amer) Est GFR (Non-Af Amer) Random Glucose Calcium Phosphorus Magnesium Total Bilirubin AST ALT Alkaline Phosphatase Total Protein Albumin Globulin Albumin/Globulin Ratio Arterial Blood Potassium Blood Type Antibody Screen Crossmatch BBK History Checked Fingerstick Blood Sugar Results: 46
[2017-05-02] MEDS: Midazolam 100 mg/100ml in NS 100 MG/100 ML SOL IV PRN (08:14)
--- NOTE | 2017-05-02 08:19 | RAD ---
HISTORY: s/p Thoracotomy, Comparison COMPARISON: Portable chest 05/01/2017. FINDINGS: Two left-sided chest is are identified in position once again. Endotracheal tube is unchanged in position as well as right PICC. Nasogastric tube is also unchanged position. Skin dinesh are again seen the left chest wall laterally. LUNGS: No right-sided airspace disease identified at this time. Increased opacity seen the left chest suspicious for interval dense atelectasis or infiltrate. PLEURA: Left pleural effusions are identified with possible loculation of the left apex. Clinically correlate with function of chest tubes. No right pleural effusion. No pneumothorax bilaterally. CARDIOVASCULAR: Cardiac silhouette is obscured by a prominent left sided pulmonary density. OSSEOUS STRUCTURES: Left rib fracture again identified. VISUALIZED UPPER ABDOMEN: Normal. OTHER FINDINGS: None. IMPRESSION: Interval dense atelectasis or infiltrate is seen obscuring the mid inferior left lung zones with underlying effusion not excluded the left apical loculated effusion in question. Clinically correlate with function of left chest tubes which appear unchanged in position. Please see discussion above.
[2017-05-02] MEDS: Albumin Human 5% (12.5 gm/250 ml) IV SCH ×3 (08:21→10:00)
[2017-05-02 09:25] LABS: MYELOCYTE 2 %; NEUTROPHIL 90 % (50.0-70.0); NUCLEATED RED BLOOD CELL 1 %
[2017-05-02 09:26] LABS: LARGE PLATELETS PRESENT
--- NOTE | 2017-05-02 09:55 | CP.PCM.PN ---
Subjective - Date & Time of Evaluation Date of Evaluation: 05/02/17 Time of Evaluation: 09:20 - Subjective Subjective: Had VATS yesterday and noted events overnight - patient dropped Hemoglobin, had a lot of drainage from the chest tube placed during surgery, became hypothermic , put back on pressors. Objective - Vital Signs/Intake and Output Vital Signs (last 24 hours): Temp Pulse Resp BP Pulse Ox 94.3 F L 106 H 25 H 151/106 H 100 05/02/17 05:48 05/02/17 06:00 05/02/17 02:35 05/02/17 05:48 05/02/17 05:48 Intake and Output: 05/01/17 05/02/17 18:59 06:59 Intake Total 130 4167 Output Total 650 2440 Balance -520 1727 - Medications Medications: Current Medications Acetaminophen (Tylenol 325mg Tab) 650 mg PO Q6H PRN PRN Reason: Fever >100.4 F Albumin Human (Albumin Human 25% (12.5 Gm/50 Ml)) 12.5 gm IV Q4 [facility] [place] Stop: 05/02/17 16:01 Last Admin: 05/02/17 03:45 Dose: 12.5 gm Albuterol/Ipratropium (Duoneb 3 Mg/0.5 Mg (3 Ml) Ud) 3 ml IH [id number] [facility] Last Admin: 05/02/17 01:41 Dose: 3 ml Albuterol/Ipratropium (Duoneb 3 Mg/0.5 Mg (3 Ml) Ud) 3 ml IH Q2H PRN PRN Reason: Shortness of Breath Last Admin: 04/24/17 23:34 Dose: 3 ml Albuterol/Ipratropium (Duoneb 3 Mg/0.5 Mg (3 Ml) Ud) 3 ml IH Q2H PRN PRN Reason: Shortness of Breath Last Admin: 04/25/17 00:30 Dose: 3 ml Chlorhexidine Gluconate (Peridex) 15 ml PO BID [facility] [place] Last Admin: 05/01/17 17:47 Dose: 15 ml Folic Acid (Folic Acid) 1 mg PO DAILY [facility] [place] Last Admin: 05/01/17 09:31 Dose: Not Given Guaifenesin/Dextromethorphan (Robitussin Dm) 5 ml PO Q6H PRN PRN Reason: Cough Heparin Sodium (Porcine) (Heparin) 5,000 units SC Q8 CEM PRN Reason: Protocol Last Admin: 04/30/17 22:49 Dose: Not Given Hydrocortisone Sodium Succinate (Solu-Cortef) 50 mg IVP DAILY CEM Azithromycin (Zithromax 500mg In Ns) 500 mg in 250 mls @ 167 mls/hr IVPB DAILY CEM PRN Reason: Protocol Last Admin: 05/01/17 09:47 Dose: 167 mls/hr Norepinephrine Bitartrate 8 mg (/ Sodium Chloride) 258 mls @ 7.74 mls/hr IV .Q24H PRN; Protocol; 4 MCG/MIN PRN Reason: TITRATE PER PROTOCOL Last Titration: 05/02/17 03:30 Dose: 10.8 mcg/min, 20.89 mls/hr Meropenem 1 gm/ Dextrose 100 mls @ 100 mls/hr IVPB Q8 CEM PRN Reason: Protocol Stop: 05/06/17 14:01 Last Admin: 05/02/17 05:23 Dose: 100 mls/hr Dexmedetomidine HCl (Precedex 4 Mcg/Ml (100 Ml)) 400 mcg in 100 mls @ 4.15 mls/ hr IV .Q24H PRN; Protocol; 0.2 MCG/KG/HR PRN Reason: Agitation Last Admin: 05/02/17 05:37 Dose: 0.7 mcg/kg/hr, 14.526 mls/hr Vasopressin 20 units/ Sodium (Chloride) 101 mls @ 9.09 mls/hr IV .Q11H7M CEM; 0.03 U/MIN PRN Reason: Protocol Last Admin: 04/30/17 10:10 Dose: 9.09 mls/hr Fentanyl Citrate (Fentanyl Citrate/Sodium Chloride 1 Mg/100 Ml) 1,000 mcg in 100 mls @ 2 mls/hr IV .Q24H PRN; Protocol; 20 MCG/HR PRN Reason: TITRATE PER MD ORDER Last Titration: 05/02/17 03:00 Dose: 100 mcg/hr, 10 mls/hr Sodium Chloride (Sodium Chloride 0.9%) 1,000 mls @ 100 mls/hr IV .Q10H CEM Last Admin: 05/01/17 00:00 Dose: 100 mls/hr Midazolam HCl (Versed Inj) 2 mg IVP Q2 PRN PRN Reason: Agitation Last Admin: 05/01/17 02:03 Dose: 2 mg Midodrine (Proamatine) 10 mg PO TID [facility] [place] Last Admin: 05/01/17 17:23 Dose: 10 mg Multivitamins/Minerals (Therapeutic-M Tab) 1 tab PO 0800 [facility] [place] Last Admin: 05/01/17 08:18 Dose: Not Given Ondansetron HCl (Zofran Inj) 4 mg IVP Q6H PRN PRN Reason: Nausea/Vomiting Pantoprazole Sodium (Protonix Inj) 40 mg IVP DAILY [facility] [place] Last Admin: 05/01/17 09:45 Dose: Not Given Vitamin A (Vitamin A&D) 1 applic TP Q8 PRN PRN Reason: dry, cracked lips - Labs Labs: 05/02/17 05:00 05/01/17 17:50 PT 18.9 SECONDS (9.4-12.5) H 05/02/17 05:00 INR 1.70 (0.93-1.08) H 05/02/17 05:00 APTT 32.3 Seconds (25.1-36.5) 05/02/17 05:00 - Constitutional Appears: Other (intubated, agitated on warming blanket) - Head Exam Head Exam: NORMAL INSPECTION - ENT Exam Additional comments: ET tube in place - Neck Exam Neck Exam: absent: Meningismus - Respiratory Exam Respiratory Exam: Rhonchi (scattered) - Cardiovascular Exam Cardiovascular Exam: Tachycardia, +S1, +S2 Additional comments: right chest tubes in place with serosanguinous fluid - GI/Abdominal Exam GI & Abdominal Exam: Soft. absent: Tenderness Assessment and Plan - Assessment and Plan (Free Text) Plan: Assessment Severe sepsis with ventilator dependent respiratory failure due to left sided severe community-acquired aspiration pneumonia with left sided pleural effusion S/P thoracentesis and now S/P chest tube placement POD #7, S/P VATS and decortication of possible empyema POD #1 - now with acute SIRS with acute drop in Hemoglobin, thrombocytopenia history of alcohol abuse hypothyroidism cataracts S/P left eye surgery HTN dementia Plan will d/c Zyvox for now; Merrem and Zithromax day 9; blood cx and pleural fluid cx are negative; will continue monitor chest tube output - follow up cultures from the OR done yesterday ICU team monitoring Hemoglobin and patient is also being monitored by CT surgery will continue to monitor clinically
[2017-05-02] MEDS: Sodium Bicarbonate 8.4% 150 MEQ in Dextrose 5% In Water 1,000 ML IV SCH ×2 (09:59→21:26)
[2017-05-02] MEDS: Multivitamin With Minerals Tab PO SCH (10:57)
[2017-05-02] MEDS: Chlorhexidine 0.12% Oral Sol 480 ml Bot PO SCH ×2 (11:21→18:30)
[2017-05-02] MEDS ORDERED: Rocuronium 10 mg/ml (5 ml) ONE (12:27)
[2017-05-02] MEDS ORDERED: Midazolam 2 MG/2 ML VIAL ONE (12:27)
[2017-05-02] MEDS: Azithromycin 500MG/NS 250ml 500 MG/250 ML BAG IVPB SCH (14:27)
--- NOTE | 2017-05-02 14:57 | PN ---
DATE: 05/02/2017 SUBJECTIVE: The patient is sedated on Fentanyl 100 mcg per hour and Versed 2 mg per hour. The patient is on PRVC 400/18/5/60%. The patient is on norepinephrine at 24 mcg per minute. On vent setting, ABG is 7.35/31/217. Blood pressure 102/67 (A line present), heart rate 130, oxygen saturation 100% (attempt at going down on FiO2 were coinciding with decrease in O2 sat on the monitor below 90%), end-tidal CO2 on the monitor 31, respiratory rate 24. The patient received 2 albumin 5% 250 mL each, 2 bags of platelets and 2 FFP since this morning. PHYSICAL EXAMINATION: ENT: Head and neck is atraumatic. LUNGS: Decreased breath sounds on the left side. Clear to auscultation on the right side. ABDOMEN: Soft, nontender, and nondistended. MUSCULOSKELETAL: 2+ bilateral pedal and ankle edema. SKIN: Moist. PSYCHIATRIC: The patient is comfortable and sedated. LABORATORY DATA: WBC 22.4, hemoglobin 7.3 (after 5 units of blood hemoglobin went down from 7.7 to today's 7.3), and platelet count 65 (two bags of platelets were transfused after that and repeat CBC is pending). Sodium 145, potassium 4.3, chloride 119, carbon dioxide 17 (bicarb drip is going), BUN 30, creatinine 0.8, and glucose 162. AST 44, ALT 45, total bilirubin 3, albumin 2.1 (bolus of 750 mL of isotonic albumin was given). INR 1.7 (two units of FFP are going). Chest tube output over the last 12 hours was 2.04 liters, urine output about 30 mL per hour. Chest x-ray showed no right-sided airspace disease identified at this time, increased opacity in the left chest suspicious for interval dense atelectasis with infiltrate. Left pleural effusion identified possible loculation of the left apex. Chest tube in the correct position. MEDICATIONS: Tylenol p.r.n., 25% 50 mL albumin IV q. 4 hours, isotonic albumin as a bolus was given as well, DuoNeb p.r.n. and every 6 hours on standing basis, chlorhexidine for oral neck examination, folic acid, hydrocortisone 50 mg IV daily(stress dose steroid taper), meropenem, Versed p.r.n., midodrine on hold for now as the patient is n.p.o. for possible repeated trip to OR, norepinephrine, Zofran p.r.n., Protonix, bicarb drip at 160 mL per hour, and azithromycin. ASSESSMENT AND PLAN: This is 76-year-old gentleman who initially presented to ICU with distributive shock and multi organ system failure secondary to community acquired pneumonia complicated by empyema status post drainage and open thoracatomy with decortication. Thoracatomy was performed yesterday; however, complicated by postoperative bleeding (more than 2 liters of sanguineous output overnight and hemoglobin level of 7.3 after 5 units of PRBC with prior hemoglobin of 7.7). At the present time, we will proceed with blood products transfusion with 1:1:1 ratio to avoid dilutional coagulopathy. We will avoid hypothermia and the patient is on warm blankets and most to the blood products were given through blood warmer today. We will avoid acidosis and the patient is on bicarb drip. She has last pH of 7.35. We will continue with fluid resuscitation including iso-oncotic albumin. IVC diameter on the ultrasound was less then 1 cm with almost complete collapse during inspiration (even though the patient is on PRVC, he has some spontaneous breaths). We will continue with serial bedside ultrasound of IVC. He will continue with serial CBC and serial lactic acid level measuring. About 150 mL of sanguineous fluid came out over the last one hour. Thoracic Surgery Service (Dr. He notified and aware)-->Plan is to repeat CBC after blood products transfused and monitor chest tube output for another hour--if no slowing down-repeat trip to OR NEURO: The patient is sedated with Fentanyl and Versed to improve patient ventilator synchrony and the patient's comfort. PULMONARY: Protective lung ventilation strategy to avoid progression to acute lung injury/ARDS. This is a special concern in light of receiving a lot of blood products. We will continue with maintaining tidal volume around 6 mL per predicted body weight and plateau pressure of less than 30 cmH20. We will continue with head of bed elevated more than 35 degrees. We will continue with conservative oxygen management and we will try to taper down his FiO2. Chest tube is in correct position; however, worsening of dense opacification in the L.lung, concerning for hemothorax and hemothorax in light of above clinical situation. Thoracic surgery is on board and closely following the patient as well. CARDIOVASCULAR: The patient is in hemorrhagic shock. Aggressive fluid resuscitation, blood products and PRVCs are being transfused. Unfortunately, the patient still requires pressors to maintain adequate perfusion pressure. The patient is on norepinephrine 24 and vasopressin 0.03 units per minute. Bedside echocardiogram revealed hyperdynamic left ventricle. The patient is tachycardic most likely due to intravascular hypovolemia+/-residual septic process. Will do serial bedisde POC ultrasound to follow IVC diameter while fluid resuscitation and blood products are given RENAL: The patient has urine output of more than 0.5 mL per kilogram per hour and creatinine within normal limits. The patient is on bicarb drip to avoid acidosis, which also will be aggressively corrected. We will try to minimize chloride containing IV maintenance fluids exposure and nephrotoxic medication. ENDOCRINE: The patient is on stress steroid taper and we will maintain blood glucose within 140 to 180 range and we will avoid hypoglycemia. ID: The patient is on meropenem, azithromycin, and Zyvox. His old CVL was removed yesterday. PICC line was placed at that time. ID service is following him as well. repeated procalcitonin actually returned normal. Leukocytosis continues and will be closely monitor. GI: The patient will be on GI prophylaxis and n.p.o. for now. We will continue with mechanical DVT prophylaxis. We will continue with GI prophylaxis. Hem: thrombocytopenia and coagulopathy may be dilutional and we are agressively correcting--2 bags of platelets, 2 FFP (and two more pending), 4 PRBC will be transfused. Large bore PIV will be placed Addendum: 2 bags of platelets are trasnfused, 2 FFP are transfused, PRBC transfusion is in progress, 750 cc of iso-oncotic albumin are infused as a IVF bolus. Patient is normothermic, repeated bedside POC thoracic ultrasound revealed lozoya IVC closer to 2 cm without respiratory variation-->Dr. Parkinson is at a bedside-->taking patient to OR emergently as no slowing down sanguinous output from chest tube. Addendum: Patient has returned from OR: 1200 old mixed with fresh blood removed and hemostasis reportedly acheived. U/o about 80 cc over 2 hours, on norepinephrine 8 mcg/min, but rapidly weaned off with maintaining BP at 120/80. CBC, CMP, ABG with LA, troponin are sent and pending Addendum: Off of vasopressin as well. Hb came back as 4.3 and plats 48. chest tube output about 70-75 cc/hr serosanguinous, u/o 70 cc/hr, creatinine 0.9. Substantially positive fluid balance and third spacing-->is Hb drop due to volume re-distribution into intravascular space? If Hb confirmed to be as low on repeated CBC--> Will proceed with PRBC/FFP/Plat transfusion, while attempt diuresing as much as hemodynamics allows. If Hb level wont respond to above appropriately will consider CT chest, abdomen and pelvis to rule out alternative source of bleeding. Discussed with Dr. He, who agreed with above. ccm time 40 min Emerson Araujo MD [facility]
[2017-05-02 15:16] LABS: ABG MECHANICAL RATE 18; ARTERIAL BLOOD GAS HCO3 19.2 mmol/L (21-28); ARTERIAL BLOOD GAS PH 7.36 (7.35-7.45); ATERIAL BLOOD GAS PEEP 5
--- NOTE | 2017-05-02 15:21 | PCM.SURG1 ---
Surgeon's Initial Post Op Note - Surgeon's Notes Surgeon: Dr. He [facility] Manager: Dr. Penaloza PGY2, Dr. Jorge PGY3 Type of Anesthesia: General Endo Pre-Operative Diagnosis: Hemothorax Operative Findings: See operative note Post-Operative Diagnosis: Hemothorax Operation Performed: Thoracic washout Specimen/Specimens Removed: Blood clot Estimated Blood Loss: EBL {In ML}: 2,000 Blood Products Given: PRBC Drains Used: Chest Tubes Post-Op Condition: Poor Date of Surgery/Procedure: 05/02/17 Time of Surgery/Procedure: 15:21
--- NOTE | 2017-05-02 15:48 | OP ---
PROCEDURE DATE: 05/01/2017 PROCEDURE: Left thoracotomy, left decortication and drainage of empyema. TYPE OF ANESTHESIA: General. INDICATIONS FOR SURGERY: This is a 76-year-old who has been intubated for prolonged period of time, but also developed purulent drainage from his chest tube. He had previous pneumonia. He was vent dependent and appearing septic. CT scan showed loculated effusions, multiple attempts by IR to drain, this was unsuccessful. In order to potentially facilitate his breathing, in order to be extubated, the plan was to drain the purulent fluid. FINDINGS: He had a thickened peel on the endothoracic pleura as well as on the visceral pleura. The lungs themselves were expanded, but the thickened fluid was removed. There was not much purulent drainage that was loose at the sulcus of the diaphragm. Due to the extensive chronic nature of the peel that was along the entire surface of the lungs, there was some bleeding and some air leaks that were caused by the peel. We tried sutured the closure of some of the air leaks as well as cautery, also topical hemostatics were used. The patient remained hemodynamically stable throughout. DESCRIPTION OF PROCEDURE: After general endotracheal anesthesia was applied, the left side up, all pressure points were cushioned. A left thoracotomy was performed, entered the chest under direct vision. The findings were as I mentioned. We developed a peel on the lateral surface of the chest and we are able to remove this for pathology. There were some purulent drainage at the inferior portion. Both lungs were adherent to the chest wall to a moderate amount and took some dissection to get this freed. The visceral pleura also needed to be freed up and that is when we encountered some air leaking and some bleeding. We felt that this was controlled to a reasonable degree. Two chest tubes were placed and the approximated with heavy PDS and the wound was closed in 3 layers with skin dinesh. The patient tolerated the procedure well and went to the recovery room stable. Benjamin He MD
--- NOTE | 2017-05-02 16:08 | RAD ---
HISTORY: s/p thoracotomy COMPARISON: Numerous prior chest x-rays, most recent performed 05/02/17 TECHNIQUE: Chest, one view. FINDINGS: Endotracheal tube, nasogastric tube, and right-sided PICC appear in satisfactory position. Two left-sided chest tubes. LUNGS: Patchy bilateral infiltrates. Mild pulmonary venous congestion. PLEURA: Small bilateral pleural effusions. Questionable small left apical pneumothorax measuring approximately 2.2 cm is favored to in fact reflect overlying tubing and summation artifact. Repeat study may be considered. CARDIOVASCULAR: Cardiomegaly. Dense atherosclerotic calcifications. OSSEOUS STRUCTURES: Osseous demineralization. Degenerative changes. VISUALIZED UPPER ABDOMEN: Unremarkable. OTHER FINDINGS: None. IMPRESSION: Endotracheal tube, nasogastric tube, and right-sided PICC appear in satisfactory position. Two left-sided chest tubes. Patchy bilateral infiltrates. Mild pulmonary venous congestion. Small bilateral pleural effusions. Questionable small left apical pneumothorax measuring approximately 2.2 cm is favored to in fact reflect overlying tubing and summation artifact. Repeat study may be considered. Findings discussed with TOMASA Mckeon on 05/02/17 at 4:03 p.m.
--- NOTE | 2017-05-02 16:30 | CARD ---
APPROVED REPORT EXAM: Two-dimensional and M-mode echocardiogram with Doppler and color Doppler. INDICATION LV Function:SystolicDiastolic Aortic Valve AoV Peak Ybggvkea304.0cm/Amandeep Peak GR.19mmHg Mitral Valve E/A ratio0.0 TDI E/Lateral E'0.0E/Medial E'0.0 Tricuspid Valve TR Peak [id number] [id number] Peak Gr.25mmHg [id number] LEFT VENTRICLE The left ventricle is normal size. There is borderline to mild concentric left ventricular hypertrophy. The left ventricular function is probably normal normal. There is normal LV segmental wall motion. Transmitral Doppler flow pattern is Grade III-reversible restrictive diastolic dysfunction. No left ventricle thrombus noted on this study. There is no ventricular septal defect visualized. There is no left ventricular aneurysm. There is no mass noted in the left ventricle. RIGHT VENTRICLE The right ventricle is moderately dilated. There is normal right ventricular wall thickness. Systolic function is mildly reduced. ATRIA The left atrium size is normal. The right atrium size is normal. The interatrial septum is intact with no evidence for an atrial septal defect. AORTIC VALVE The aortic valve is not well visualized, can not comment There is mild aortic regurgitation. There is no aortic valvular stenosis. There is no aortic valvular vegetation. MITRAL VALVE The mitral valve is thickened but opens well. Mitral annular calcification is mild. Mitral regurgitation is trace. There is no mitral valve stenosis. There is no evidence of mitral valve prolapse. TRICUSPID VALVE The tricuspid valve leaflets are thickened , but open well. There is mild tricuspid regurgitation.RVSP-35 mmof Hg. There is no tricuspid valve stenosis. There is no tricuspid valve prolapse or vegetation. PULMONIC VALVE The pulmonic valve is not well visualized. GREAT VESSELS The aortic root is normal in size. The ascending aorta is normal in size. The pulmonary artery is normal. The IVC is normal in size and collapses >50% with inspiration. PERICARDIAL EFFUSION There is no pleural effusion. There is no pericardial effusion. <Conclusion> The left ventricle is normal size. There is borderline to mild concentric left ventricular hypertrophy. There is mild aortic regurgitation. Mitral regurgitation is trace. There is mild tricuspid regurgitation.RVSP-35 mmof Hg. There is no pericardial effusion. TDS . poor sonic window. The aortic valve is not well visualized, can not comment, Pl Repeat study, when pt is stable.No M ode is avaiable. The left ventricular function is probably normal normal.
[2017-05-02 17:02] LABS: BASO # 0.01 K/mm3 (0.0-2.0); BASO % 0.1 % (0.0-3.0); EOS % 0.3 % (1.5-5.0); GRAN # 14.09 (1.4-6.5); GRAN % 88.7 % (50.0-68.0); LYMPH # 0.6 (1.2-3.4); MEAN CELL VOLUME 86.7 fl (80.0-105.0); MEAN CORPUSCULAR HEMOGLOBIN 30.1 pg (25.0-35.0); MEAN CORPUSCULAR HGB CONC 34.7 g/dl (31.0-37.0); MONO # 1.1 (0.1-0.6); MONO % 6.9 % (1.0-6.0); RED CELL DISTRIBUTION WIDTH 15.7 % (11.5-14.5); WHITE BLOOD COUNT 15.9 10^3/ul (4.5-11.0)
[2017-05-02 17:05] LABS: HEMATOCRIT 12.4 % (42.0-52.0)
[2017-05-02 17:08] LABS: ALB/GLOB RATIO 1.2 (1.1-1.8); ALKALINE PHOSPHATASE 35 U/L (38-126); ALT/SGPT 38 U/L (7-56); AST/SGOT 30 U/L (17-59); BILIRUBIN,TOTAL 3.9 mg/dL (0.2-1.3); BLOOD UREA NITROGEN 30 mg/dL (7-21); CALCIUM 7.8 mg/dL (8.4-10.5); CARBON DIOXIDE 23 mmol/L (21-33); CHLORIDE 117 mmol/L (98-107); GFR AFRICAN-AMERICAN > 60; GLUCOSE,RANDOM 183 mg/dL (70-110); POTASSIUM 4.4 mmol/L (3.6-5.0); SODIUM 146 mmol/L (132-148); TOTAL PROTEIN 4.2 g/dL (5.8-8.3)
[2017-05-02 17:25] LABS: TROPONIN I 0.21 ng/mL
[2017-05-02 18:14] LABS: BASO # 0.01 K/mm3 (0.0-2.0); BASO % 0.1 % (0.0-3.0); EOS % 0.3 % (1.5-5.0); GRAN # 12.49 (1.4-6.5); GRAN % 89.6 % (50.0-68.0); LYMPH # 0.6 (1.2-3.4); LYMPH % 4.5 % (22.0-35.0); MEAN CELL VOLUME 85.8 fl (80.0-105.0); MEAN CORPUSCULAR HEMOGLOBIN 30.6 pg (25.0-35.0); MEAN CORPUSCULAR HGB CONC 35.7 g/dl (31.0-37.0); MEAN PLATELET VOLUME 10.3 fl (7.0-11.0); MONO # 0.8 (0.1-0.6); MONO % 5.5 % (1.0-6.0); RED CELL DISTRIBUTION WIDTH 15.8 % (11.5-14.5); WHITE BLOOD COUNT 13.9 10^3/ul (4.5-11.0)
[2017-05-02 18:15] LABS: HEMATOCRIT 11.5 % (42.0-52.0)
[2017-05-02 18:38] LABS: INR 1.95 (0.93-1.08)
--- NOTE | 2017-05-02 19:37 | PN ---
DATE: SUBJECTIVE: The patient is a 76-year-old, seen and examined on vent, had open thoracotomy done yesterday who has been oozing blood, been taken to OR again for . The patient has shallow breathing, looks pale, on pressor. PHYSICAL EXAMINATION: VITAL SIGNS: He is afebrile, pulse 99, respirations 18, and blood pressure is 109/45. LUNGS: Decreased breath sounds on the left base. HEART: S1 and S2, audible. ABDOMEN: Soft and nontender. CHEST: He has chest tube that is draining blood. LABORATORY EXAM: WBC is 15.9, hemoglobin 4.3, hematocrit 12.4 and platelet of 48. PT is 18.9 and INR 1.70. Chemistry; sodium 146, potassium 4.4, chloride 117, CO2 of 23, BUN 30, creatinine 0.9, and blood sugar of 183. Troponin 0.21. ASSESSMENT: 1. Respiratory failure. 2. Coagulopathy. 3. Active bleeding from the surgical site. 4. Patchy bilateral infiltrate. 5. Status post thoracotomy. 6. History of chronic alcohol abuse. PLAN: Take the patient back to OR. The patient has received multiple FFPs and pressor. He is on IV fluid. We will monitor his hemoglobin and hematocrit and serial electrolyte. Tony Ochoa MD
[2017-05-03] MEDS: Albuterol-Ipratrop 3 mg / 0.5 (3 ml) UD IH SCH ×4 (01:06→19:49)
[2017-05-03] MEDS: Fentanyl 1000mcg/100ml NS 1,000 MCG/100 ML BAG IV PRN ×3 (03:04→18:41)
[2017-05-03] MEDS: Midazolam 100 mg/100ml in NS 100 MG/100 ML SOL IV PRN ×2 (03:16→19:52)
[2017-05-03] MEDS: Sodium Bicarbonate 8.4% 150 MEQ in Dextrose 5% In Water 1,000 ML IV SCH ×2 (05:00→14:50)
[2017-05-03] MEDS: Meropenem 1 GM in Dextrose 5% In Water 100 ML IVPB SCH ×3 (05:49→21:29)
[2017-05-03 06:40] LABS: BASO # 0.02 K/mm3 (0.0-2.0); BASO % 0.1 % (0.0-3.0); EOS # 0.1 (0.0-0.7); EOS % 0.6 % (1.5-5.0); GRAN # 12.59 (1.4-6.5); GRAN % 87.6 % (50.0-68.0); LYMPH # 0.7 (1.2-3.4); LYMPH % 4.9 % (22.0-35.0); MEAN CELL VOLUME 86.4 fl (80.0-105.0); MEAN CORPUSCULAR HEMOGLOBIN 30.4 pg (25.0-35.0); MEAN CORPUSCULAR HGB CONC 35.2 g/dl (31.0-37.0); MEAN PLATELET VOLUME 9.8 fl (7.0-11.0); MONO % 6.8 % (1.0-6.0); WHITE BLOOD COUNT 14.4 10^3/ul (4.5-11.0)
[2017-05-03 06:42] LABS: HEMATOCRIT 21.6 % (42.0-52.0)
[2017-05-03 06:47] LABS: INR 1.3 (0.93-1.08)
[2017-05-03 06:52] LABS: ALB/GLOB RATIO 1.3 (1.1-1.8); ALKALINE PHOSPHATASE 52 U/L (38-126); ALT/SGPT 31 U/L (7-56); AST/SGOT 30 U/L (17-59); BILIRUBIN,TOTAL 2.8 mg/dL (0.2-1.3); BLOOD UREA NITROGEN 28 mg/dL (7-21); CALCIUM 8.1 mg/dL (8.4-10.5); CARBON DIOXIDE 28 mmol/L (21-33); CHLORIDE 112 mmol/L (98-107); GFR AFRICAN-AMERICAN > 60; GLUCOSE,RANDOM 108 mg/dL (70-110); SODIUM 147 mmol/L (132-148); TOTAL PROTEIN 5.4 g/dL (5.8-8.3)
--- NOTE | 2017-05-03 08:08 | CP.PCM.PN ---
Subjective - Date & Time of Evaluation Date of Evaluation: 05/03/17 Time of Evaluation: 08:05 - Subjective Subjective: Cardiothoracic Surgery Progress note. Dr. He Pt seen and examined at bedside. No acute events overnight. Patient received 4 PRBCs, 2 Platelets, and 4 FFP since surgery yesterday. Patient is on vent, PRVC 60%/11/07/400. UOP ~100cc/hr. Patient is sedated, but responds to tactile stimuli. Objective - Vital Signs/Intake and Output Vital Signs (last 24 hours): Temp Pulse Resp BP Pulse Ox 97.5 F L 91 H 18 122/50 L 95 05/03/17 05:46 05/03/17 05:47 05/03/17 07:27 05/02/17 18:25 05/03/17 07:27 Intake and Output: 05/03/17 05/03/17 06:59 18:59 Intake Total 6688.0 Output Total 3710 Balance 2978.0 - Medications Medications: Current Medications Acetaminophen (Tylenol 325mg Tab) 650 mg PO Q6H PRN PRN Reason: Fever >100.4 F Albuterol/Ipratropium (Duoneb 3 Mg/0.5 Mg (3 Ml) Ud) 3 ml IH [id number] [facility] Last Admin: 05/03/17 07:14 Dose: 3 ml Albuterol/Ipratropium (Duoneb 3 Mg/0.5 Mg (3 Ml) Ud) 3 ml IH Q2H PRN PRN Reason: Shortness of Breath Last Admin: 04/24/17 23:34 Dose: 3 ml Albuterol/Ipratropium (Duoneb 3 Mg/0.5 Mg (3 Ml) Ud) 3 ml IH Q2H PRN PRN Reason: Shortness of Breath Last Admin: 04/25/17 00:30 Dose: 3 ml Chlorhexidine Gluconate (Peridex) 15 ml PO BID [facility] Last Admin: 05/02/17 18:30 Dose: 15 ml Folic Acid (Folic Acid) 1 mg PO DAILY [facility] Last Admin: 05/02/17 10:57 Dose: Not Given Guaifenesin/Dextromethorphan (Robitussin Dm) 5 ml PO Q6H PRN PRN Reason: Cough Heparin Sodium (Porcine) (Heparin) 5,000 units SC Q8 [facility] PRN Reason: Protocol Last Admin: 04/30/17 22:49 Dose: Not Given Hydrocortisone Sodium Succinate (Solu-Cortef) 50 mg IVP DAILY [facility] Last Admin: 05/02/17 11:23 Dose: 50 mg Azithromycin (Zithromax 500mg In Ns) 500 mg in 250 mls @ 167 mls/hr IVPB DAILY [facility] PRN Reason: Protocol Last Admin: 05/02/17 14:27 Dose: 167 mls/hr Norepinephrine Bitartrate 8 mg (/ Sodium Chloride) 258 mls @ 7.74 mls/hr IV .Q24H PRN; Protocol; 4 MCG/MIN PRN Reason: TITRATE PER PROTOCOL Last Titration: 05/02/17 18:34 Dose: 0 mcg/min, 0 mls/hr Meropenem 1 gm/ Dextrose 100 mls @ 100 mls/hr IVPB Q8 [facility] PRN Reason: Protocol Stop: 05/06/17 14:01 Last Admin: 05/03/17 05:49 Dose: 100 mls/hr Vasopressin 20 units/ Sodium (Chloride) 101 mls @ 9.09 mls/hr IV .Q11H7M [facility]; 0.03 U/MIN PRN Reason: Protocol Last Admin: 05/02/17 18:09 Dose: 9.09 mls/hr Fentanyl Citrate (Fentanyl Citrate/Sodium Chloride 1 Mg/100 Ml) 1,000 mcg in 100 mls @ 2 mls/hr IV .Q24H PRN; Protocol; 20 MCG/HR PRN Reason: TITRATE PER MD ORDER Last Admin: 05/03/17 03:04 Dose: 150 mcg/hr, 15 mls/hr Sodium Bicarbonate 150 meq/ (Dextrose) 1,150 mls @ 150 mls/hr IV .Q7H40M [facility] Last Admin: 05/03/17 05:00 Dose: 150 mls/hr Midazolam 100 mg/100ml in NS (Midazolam 100 Mg/100ml In Ns) 100 mg in 100 mls @ 1 mls/hr IV .Q24H PRN; Protocol; 1 MG/HR PRN Reason: Agitation Last Admin: 05/03/17 03:16 Dose: 6 mg/hr, 6 mls/hr Midazolam HCl (Versed Inj) 2 mg IVP Q2 PRN PRN Reason: Agitation Last Admin: 05/01/17 02:03 Dose: 2 mg Midodrine (Proamatine) 10 mg PO TID [facility] Last Admin: 05/02/17 18:29 Dose: Not Given Multivitamins/Minerals (Therapeutic-M Tab) 1 tab PO 0800 [facility] Last Admin: 05/02/17 10:57 Dose: Not Given Ondansetron HCl (Zofran Inj) 4 mg IVP Q6H PRN PRN Reason: Nausea/Vomiting Pantoprazole Sodium (Protonix Inj) 40 mg IVP DAILY [facility] Last Admin: 05/02/17 11:23 Dose: 40 mg Vitamin A (Vitamin A&D) 1 applic TP Q8 PRN PRN Reason: dry, cracked lips - Labs Labs: 05/03/17 06:15 05/03/17 06:15 PT 14.4 SECONDS (9.4-12.5) H 05/03/17 06:15 INR 1.30 (0.93-1.08) H 05/03/17 06:15 APTT 32.3 Seconds (25.1-36.5) 05/02/17 05:00 - Constitutional Appears: No Acute Distress - Head Exam Head Exam: ATRAUMATIC, NORMAL INSPECTION, NORMOCEPHALIC - ENT Exam ENT Exam: Mucous Membranes Moist - Neck Exam Additional comments: left IJ site with ecchymosis noted. - Respiratory Exam Respiratory Exam: Decreased Breath Sounds (decreased breath sounds left chest. ) . absent: Respiratory Distress Additional comments: left sided CT x2 in place. 950cc total since surgery. To suction. - Cardiovascular Exam Cardiovascular Exam: RRR - GI/Abdominal Exam GI & Abdominal Exam: Soft. absent: Distended, Guarding, Rigid, Tenderness - Extremities Exam Additional comments: diffuse pitting edema noted - Neurological Exam Additional comments: intubated and sedated, arousable to tactile stimuli Assessment and Plan - Assessment and Plan (Free Text) Assessment: 76yo M with Left chest Empyema s/p Thoracotomy with decortication on 05/01 complicated with bleeding post-op; s/p repeat Thoracotomy, evac of hemothorax and washout on 05/02. - Continue L CT to wall suction - CXR daily - Strict I&Os - Continue IV Abx - medically maximize as per primary and ICU teams - OK to attempt vent weaning trials Further recs as per Dr. Ying Abel PGY1 surgery pager: [phone]
[2017-05-03] MEDS: Multivitamin With Minerals Tab PO SCH (09:15)
[2017-05-03] MEDS: Azithromycin 500MG/NS 250ml 500 MG/250 ML BAG IVPB SCH (09:19)
--- NOTE | 2017-05-03 10:12 | RAD ---
HISTORY: s/p Thoracotomy, Comparison COMPARISON: Comparison is made to 05/02/2017 FINDINGS: LUNGS: Interval further decrease in the size of the left lung compared to the previous exam. The possibility of partial atelectasis of the left lung should be considered. The NG tube is seen at appropriate position. PLEURA: Two chest C tubes are again seen at the left chest. Small right pleural effusion is noted. CARDIOVASCULAR: The cardiac silhouette is enlarged. OSSEOUS STRUCTURES: No significant abnormalities. VISUALIZED UPPER ABDOMEN: The NG tube seen extending to the upper abdomen OTHER FINDINGS: There is right-sided PICC line seen at appropriate position. Postsurgical changes seen at the left chest wall. IMPRESSION: The left lung appears smaller compared to the previous exam. Appropriate position of the support devices. Otherwise no significant interval change.
[2017-05-03] MEDS: Chlorhexidine 0.12% Oral Sol 480 ml Bot PO SCH ×2 (11:01→18:14)
[2017-05-03 11:03] LABS: ABG MECHANICAL RATE 18; ARTERIAL BLOOD GAS HCO3 29.6 mmol/L (21-28); ATERIAL BLOOD GAS PEEP 5
[2017-05-03] MEDS: Dextrose 5%/0.45% NS 1,000 ML IV SCH (11:39)
--- NOTE | 2017-05-03 12:47 | PN ---
DATE: 05/03/2017 SOUND PERSON NOTE. SUBJECTIVE: The patient is sedated on the ventilator with FiO2 of 60%. He is hemodynamically stable on no pressors and his latest hemoglobin is 7.3. The patient's left sided chest tube continues to drain a blood tinged fluid. It is on suction. PHYSICAL EXAMINATION VITAL SIGNS: Temperature is 97.2, his pulse is 91, respirations are 18, and his BP is 133/51. HEENT: Head is atraumatic and normocephalic. Eyes, reactive to light. Ears, nose, and throat seemed to be within normal limits. NECK: Supple. No JVD. No thyroid enlargement. No lymph nodes. HEART: Has regular rate and rhythm. Normal S1 and S2. LUNGS: Reveal mild rhonchi on the left, fairly clear breath sounds on the right and decreased breath sounds at the left base. ABDOMEN: Soft. Decreased bowel sounds. GENITALIA: Deferred. RECTAL: Deferred. MUSCULOSKELETAL: No joint deformities. EXTREMITIES: Reveal 1 to 2+ lower extremity edema. NEUROLOGIC: The patient is sedated on the ventilator. LABORATORY DATA: The patient's white count is 14.4, hemoglobin is 7.6, and hematocrit is 21.6, with platelets of 84,000. Sodium is 147, potassium is 3.0, chloride is 112, CO2 of 28 with a BUN of 28, creatinine of 1.0, and glucose of 108. The patient's chest x-ray reveals continued bilateral infiltrates with chest tubes on the left. IMPRESSION: This patient has respiratory failure requiring ventilator support and has FiO2 of 60%. He has sepsis with left-sided empyema and is status post thoracotomy and decortication. The patient has anemia with thrombocytopenia as well as small pleural effusion. There may be a component of pneumonia with bilateral infiltrates and noted sepsis. PLAN: We will continue with ventilator support. Decrease the FiO2 as tolerated. The patient is sedated and we will follow electrolytes and other labs and correct as needed. The patient will continue with chest tube drainage of the left pleura. We will continue with DuoNeb as a bronchodilator. He is getting intermittent Lasix for appropriate diuresis. We will follow his hemoglobin closely. The patient has received packed red blood cells as well as FFP and platelets. The patient is on antibiotics of meropenem. He is getting Versed, Fentanyl, and IV fluids. We will follow closely and treat aggressively along with the other consultants and primary care doctor. Christian Sanchez MD
--- NOTE | 2017-05-03 13:04 | CP.PCM.PN ---
Subjective - Date & Time of Evaluation Date of Evaluation: 05/03/17 Time of Evaluation: 07:20 - Subjective Subjective: Patient continues to be on the ventilator, sedated, pressor support has been decreased. No fevers overnight. Objective - Vital Signs/Intake and Output Vital Signs (last 24 hours): Temp Pulse Resp BP Pulse Ox 97.5 F L 91 H 17 122/50 L 97 05/03/17 05:46 05/03/17 05:47 05/02/17 20:11 05/02/17 18:25 05/03/17 05:46 Intake and Output: 05/02/17 05/03/17 18:59 06:59 Intake Total 449 1365.0 Output Total 1820 Balance 449 -455.0 - Medications Medications: Current Medications Acetaminophen (Tylenol 325mg Tab) 650 mg PO Q6H PRN PRN Reason: Fever >100.4 F Albuterol/Ipratropium (Duoneb 3 Mg/0.5 Mg (3 Ml) Ud) 3 ml IH [id number] [facility] Last Admin: 05/03/17 01:06 Dose: 3 ml Albuterol/Ipratropium (Duoneb 3 Mg/0.5 Mg (3 Ml) Ud) 3 ml IH Q2H PRN PRN Reason: Shortness of Breath Last Admin: 04/24/17 23:34 Dose: 3 ml Albuterol/Ipratropium (Duoneb 3 Mg/0.5 Mg (3 Ml) Ud) 3 ml IH Q2H PRN PRN Reason: Shortness of Breath Last Admin: 04/25/17 00:30 Dose: 3 ml Chlorhexidine Gluconate (Peridex) 15 ml PO BID [facility] Last Admin: 05/02/17 18:30 Dose: 15 ml Folic Acid (Folic Acid) 1 mg PO DAILY [facility] Last Admin: 05/02/17 10:57 Dose: Not Given Guaifenesin/Dextromethorphan (Robitussin Dm) 5 ml PO Q6H PRN PRN Reason: Cough Heparin Sodium (Porcine) (Heparin) 5,000 units SC Q8 [facility] PRN Reason: Protocol Last Admin: 04/30/17 22:49 Dose: Not Given Hydrocortisone Sodium Succinate (Solu-Cortef) 50 mg IVP DAILY [facility] Last Admin: 05/02/17 11:23 Dose: 50 mg Azithromycin (Zithromax 500mg In Ns) 500 mg in 250 mls @ 167 mls/hr IVPB DAILY [facility] PRN Reason: Protocol Last Admin: 05/02/17 14:27 Dose: 167 mls/hr Norepinephrine Bitartrate 8 mg (/ Sodium Chloride) 258 mls @ 7.74 mls/hr IV .Q24H PRN; Protocol; 4 MCG/MIN PRN Reason: TITRATE PER PROTOCOL Last Titration: 05/02/17 18:34 Dose: 0 mcg/min, 0 mls/hr Meropenem 1 gm/ Dextrose 100 mls @ 100 mls/hr IVPB Q8 [facility] PRN Reason: Protocol Stop: 05/06/17 14:01 Last Admin: 05/02/17 21:31 Dose: 100 mls/hr Vasopressin 20 units/ Sodium (Chloride) 101 mls @ 9.09 mls/hr IV .Q11H7M [facility]; 0.03 U/MIN PRN Reason: Protocol Last Admin: 05/02/17 18:09 Dose: 9.09 mls/hr Fentanyl Citrate (Fentanyl Citrate/Sodium Chloride 1 Mg/100 Ml) 1,000 mcg in 100 mls @ 2 mls/hr IV .Q24H PRN; Protocol; 20 MCG/HR PRN Reason: TITRATE PER MD ORDER Last Admin: 05/03/17 03:04 Dose: 150 mcg/hr, 15 mls/hr Sodium Bicarbonate 150 meq/ (Dextrose) 1,150 mls @ 150 mls/hr IV .Q7H40M [facility] Last Admin: 05/02/17 21:26 Dose: 150 mls/hr Midazolam 100 mg/100ml in NS (Midazolam 100 Mg/100ml In Ns) 100 mg in 100 mls @ 1 mls/hr IV .Q24H PRN; Protocol; 1 MG/HR PRN Reason: Agitation Last Admin: 05/03/17 03:16 Dose: 6 mg/hr, 6 mls/hr Midazolam HCl (Versed Inj) 2 mg IVP Q2 PRN PRN Reason: Agitation Last Admin: 05/01/17 02:03 Dose: 2 mg Midodrine (Proamatine) 10 mg PO TID [facility] Last Admin: 05/02/17 18:29 Dose: Not Given Multivitamins/Minerals (Therapeutic-M Tab) 1 tab PO 0800 [facility] Last Admin: 05/02/17 10:57 Dose: Not Given Ondansetron HCl (Zofran Inj) 4 mg IVP Q6H PRN PRN Reason: Nausea/Vomiting Pantoprazole Sodium (Protonix Inj) 40 mg IVP DAILY [facility] Last Admin: 05/02/17 11:23 Dose: 40 mg Vitamin A (Vitamin A&D) 1 applic TP Q8 PRN PRN Reason: dry, cracked lips - Labs Labs: 05/02/17 18:00 05/02/17 16:40 PT 21.5 SECONDS (9.4-12.5) H 05/02/17 18:00 INR 1.95 (0.93-1.08) H 05/02/17 18:00 APTT 32.3 Seconds (25.1-36.5) 05/02/17 05:00 - Constitutional Appears: Other (intubated, sedated) - Head Exam Head Exam: NORMAL INSPECTION - ENT Exam Additional comments: ET tube in place - Respiratory Exam Respiratory Exam: Decreased Breath Sounds, Rhonchi (scattered) Additional comments: left sided chest tubes in place - Cardiovascular Exam Cardiovascular Exam: +S1, +S2 - GI/Abdominal Exam GI & Abdominal Exam: Soft. absent: Tenderness Assessment and Plan - Assessment and Plan (Free Text) Plan: Assessment Severe sepsis with ventilator dependent respiratory failure due to left sided severe community-acquired aspiration pneumonia with left sided pleural effusion S/P thoracentesis and now S/P chest tube placement POD #8, S/P VATS and decortication of possible empyema POD #2 - now with acute SIRS with acute drop in Hemoglobin, thrombocytopenia history of alcohol abuse hypothyroidism cataracts S/P left eye surgery HTN dementia Plan hold Zyvox for now; Merrem and Zithromax day 10; blood cx and pleural fluid cx are negative; will continue monitor chest tube output - OR cultures are negative so far ICU team monitoring Hemoglobin and patient is also being monitored by CT surgery will continue to monitor clinically overall prognosis is poor
[2017-05-03 13:24] LABS: BASO # 0.02 K/mm3 (0.0-2.0); BASO % 0.1 % (0.0-3.0); EOS # 0.1 (0.0-0.7); EOS % 0.6 % (1.5-5.0); GRAN # 14.56 (1.4-6.5); GRAN % 89.2 % (50.0-68.0); LYMPH # 0.6 (1.2-3.4); LYMPH % 3.5 % (22.0-35.0); MEAN CELL VOLUME 86.4 fl (80.0-105.0); MEAN CORPUSCULAR HEMOGLOBIN 30.3 pg (25.0-35.0); MEAN CORPUSCULAR HGB CONC 35.1 g/dl (31.0-37.0); MEAN PLATELET VOLUME 10.5 fl (7.0-11.0); MONO # 1.1 (0.1-0.6); MONO % 6.6 % (1.0-6.0); RED CELL DISTRIBUTION WIDTH 15.4 % (11.5-14.5); WHITE BLOOD COUNT 16.3 10^3/ul (4.5-11.0)
[2017-05-03 13:35] LABS: HEMATOCRIT 22.8 % (42.0-52.0)
[2017-05-03] MEDS ORDERED: Magnesium Sulfate 1 gm in D5W 1 GM/100 ML BAG IVPB ONE (17:54)
[2017-05-03] MEDS: Midazolam 2 MG/2 ML VIAL IVP PRN (18:20)
--- NOTE | 2017-05-03 23:00 | PN ---
DATE: SUBJECTIVE: The patient is a 76-year-old, seen and examined, remained intubated on vent, and sedated. He is off of pressor. Was given 5 blood transfusions and multiple FFPs. PHYSICAL EXAMINATION VITAL SIGNS: He is afebrile, pulse 77, respirations 18, FiO2 is 40%, pulse oxygen 97%. HEENT: Nasogastric tube and tracheal tube is in place. LUNGS: Fair airflow, decreased at bases. HEART: S1 and S2 audible, tachycardic. ABDOMEN: Soft. NEUROLOGICALLY: He is sedated and not responding. LABORATORY DATA: WBC 16.3, hemoglobin 8.0, hematocrit 22.8, and platelet of 92. PT 14.4 and INR 1.30. Chemistries; sodium 147, potassium 3.0, chloride 112, CO2 of 28, BUN 28, creatinine 1.0, blood sugar of 108, and magnesium is 1.6. Today's x-ray of chest shows no pneumothorax. ASSESSMENT: 1. Status post thoracotomy. 2. Status post revision of thoracotomy site. 3. Respiratory failure. 4. Status post chest tube insertion and VAT. Status post decortication. 5. Blood loss anemia. 6. History of alcohol abuse. PLAN: Currently, the patient is on vent support. He is getting IV fluids. He is off of pressors. He is on nebulizer treatment. His blood sugar is being monitored. Follow up his H&H and electrolytes in a.m. Tony Ochoa MD
[2017-05-04] MEDS: Dextrose 5%/0.45% NS 1,000 ML IV SCH ×2 (00:50→17:59)
[2017-05-04] MEDS: Fentanyl 1000mcg/100ml NS 1,000 MCG/100 ML BAG IV PRN ×4 (02:04→23:45)
[2017-05-04] MEDS: Albuterol-Ipratrop 3 mg / 0.5 (3 ml) UD IH SCH ×4 (02:47→19:50)
[2017-05-04 06:28] LABS: ARTERIAL BLOOD GAS HCO3 29.6 mmol/L (21-28)
[2017-05-04 06:41] LABS: BASO # 0.02 K/mm3 (0.0-2.0); BASO % 0.1 % (0.0-3.0); EOS # 0.1 (0.0-0.7); EOS % 0.5 % (1.5-5.0); GRAN # 13.22 (1.4-6.5); HEMATOCRIT 24.6 % (42.0-52.0); LYMPH # 0.6 (1.2-3.4); LYMPH % 4.4 % (22.0-35.0); MEAN CELL VOLUME 87.5 fl (80.0-105.0); MEAN CORPUSCULAR HEMOGLOBIN 30.2 pg (25.0-35.0); MEAN CORPUSCULAR HGB CONC 34.6 g/dl (31.0-37.0); MEAN PLATELET VOLUME 10.4 fl (7.0-11.0); MONO # 0.7 (0.1-0.6); RED CELL DISTRIBUTION WIDTH 15.9 % (11.5-14.5); WHITE BLOOD COUNT 14.7 10^3/ul (4.5-11.0)
[2017-05-04] MEDS: Meropenem 1 GM in Dextrose 5% In Water 100 ML IVPB SCH ×3 (06:44→21:36)
[2017-05-04] MEDS: Midazolam 100 mg/100ml in NS 100 MG/100 ML SOL IV PRN ×2 (06:45→17:12)
[2017-05-04] MEDS: Multivitamin With Minerals Tab PO SCH (08:11)
[2017-05-04 08:45] LABS: ALKALINE PHOSPHATASE 56 U/L (38-126); ALT/SGPT 27 U/L (7-56); AST/SGOT 38 U/L (17-59); BILIRUBIN,TOTAL 2.3 mg/dL (0.2-1.3); BLOOD UREA NITROGEN 26 mg/dL (7-21); CALCIUM 7.9 mg/dL (8.4-10.5); CARBON DIOXIDE 32 mmol/L (21-33); CHLORIDE 111 mmol/L (98-107); GFR AFRICAN-AMERICAN > 60; GLUCOSE,RANDOM 113 mg/dL (70-110); MAGNESIUM 1.8 mg/dL (1.7-2.2); SODIUM 145 mmol/L (132-148); TOTAL PROTEIN 4.5 g/dL (5.8-8.3)
[2017-05-04 08:57] LABS: POTASSIUM 2.9 mmol/L (3.6-5.0)
--- NOTE | 2017-05-04 09:12 | PN ---
KELP CUTTER NOTE DATE: 05/04/2017 SUBJECTIVE: The patient is sedated on the ventilator with FIO2 of 40%. He is hemodynamically stable off all pressors at this time. The patient's hemoglobin is stable as well and chest tube on the left is at intermittent suction and continues to drain. PHYSICAL EXAMINATION: VITAL SIGNS: The patient's temperature is 96.6, pulse is 80, O2 saturation is 100%, respirations are 18, and blood pressure is 137/96. SKIN: Warm and dry. HEENT: Head is atraumatic and normocephalic. Eyes; reactive to light. Ears, nose, and throat seem to be within normal limits. NECK: Supple. No JVD. No thyroid enlargement. No lymph nodes. HEART: Regular rate and rhythm. Normal S1 and S2. LUNGS: Reveal mild rhonchi on the left with decreased breath sounds at the left base. ABDOMEN: Soft. Decreased bowel sounds. GENITALIA AND RECTAL: Deferred. MUSCULOSKELETAL: No joint deformities. EXTREMITIES: Reveal trace lower extremity edema. NEUROLOGIC: He is sedated on the ventilator. LABORATORY DATA: As far as his laboratory is concerned; his white count is 14.7, hemoglobin is 8.5, hematocrit is 24.6 with platelets of 100,000. Arterial blood gas reveals a pH of 7.50, pCO2 of 38, and pO2 of 105. His CMP is pending. As far as the patient's x-ray, infiltrates are improving. IMPRESSION: The patient has respiratory failure, requiring ventilator support. He has sepsis with left-sided empyema and is status post thoracotomy and decortication. The patient has an anemia as well as thrombocytopenia and a small pleural effusion. He has a component of pneumonia with bilateral infiltrates and resolving sepsis. PLAN: We will continue with ventilator support. Continue to decrease the FIO2 as tolerated. The patient is on sedative medications as well as DuoNeb for bronchodilatation, Lasix for diuresis, and we are following his hemoglobin closely. The patient continues to have chest tube to suction and is on antibiotics as well as Versed and fentanyl and IV fluids. We will continue to treat aggressively along with the other consultants and the primary care doctor. Christian Sanchez MD
[2017-05-04] MEDS: Vitamins A & D Oint UD Foilpak TOP PRN (09:15)
[2017-05-04] MEDS: Chlorhexidine 0.12% Oral Sol 480 ml Bot PO SCH ×2 (09:15→17:20)
[2017-05-04] MEDS: Linezolid 600 mg in D5W 300 ml 600 MG/300 ML BAG IVPB SCH ×2 (09:20→21:07)
[2017-05-04] MEDS: Azithromycin 500MG/NS 250ml 500 MG/250 ML BAG IVPB SCH (09:21)
[2017-05-04] MEDS: Potassium Chloride 40 mEq/30 ml LIQ UD PO SCH ×2 (09:22→13:44)
--- NOTE | 2017-05-04 09:57 | CP.PCM.PN ---
Subjective - Date & Time of Evaluation Date of Evaluation: 05/04/17 Time of Evaluation: 09:10 - Subjective Subjective: Continues to be on the ventilator, no fevers overnight but with hypothermia. Objective - Vital Signs/Intake and Output Vital Signs (last 24 hours): Temp Pulse Resp BP Pulse Ox 95.7 F L 96 H 18 137/96 H 100 05/04/17 04:26 05/04/17 04:26 05/04/17 07:09 05/04/17 02:15 05/04/17 07:09 Intake and Output: 05/04/17 05/04/17 06:59 18:59 Intake Total 300 Balance 300 - Medications Medications: Current Medications Acetaminophen (Tylenol 325mg Tab) 650 mg PO Q6H PRN PRN Reason: Fever >100.4 F Albuterol/Ipratropium (Duoneb 3 Mg/0.5 Mg (3 Ml) Ud) 3 ml IH [id number] [facility] Last Admin: 05/04/17 07:03 Dose: 3 ml Albuterol/Ipratropium (Duoneb 3 Mg/0.5 Mg (3 Ml) Ud) 3 ml IH Q2H PRN PRN Reason: Shortness of Breath Last Admin: 04/24/17 23:34 Dose: 3 ml Albuterol/Ipratropium (Duoneb 3 Mg/0.5 Mg (3 Ml) Ud) 3 ml IH Q2H PRN PRN Reason: Shortness of Breath Last Admin: 04/25/17 00:30 Dose: 3 ml Chlorhexidine Gluconate (Peridex) 15 ml PO BID [facility] Last Admin: 05/03/17 18:14 Dose: 15 ml Folic Acid (Folic Acid) 1 mg PO DAILY [facility] Last Admin: 05/03/17 10:57 Dose: Not Given Guaifenesin/Dextromethorphan (Robitussin Dm) 5 ml PO Q6H PRN PRN Reason: Cough Heparin Sodium (Porcine) (Heparin) 5,000 units SC Q8 [facility] PRN Reason: Protocol Last Admin: 04/30/17 22:49 Dose: Not Given Hydrocortisone Sodium Succinate (Solu-Cortef) 50 mg IVP DAILY [facility] Last Admin: 05/03/17 09:15 Dose: 50 mg Azithromycin (Zithromax 500mg In Ns) 500 mg in 250 mls @ 167 mls/hr IVPB DAILY [facility] PRN Reason: Protocol Last Admin: 05/03/17 09:19 Dose: 167 mls/hr Norepinephrine Bitartrate 8 mg (/ Sodium Chloride) 258 mls @ 7.74 mls/hr IV .Q24H PRN; Protocol; 4 MCG/MIN PRN Reason: TITRATE PER PROTOCOL Last Titration: 05/02/17 18:34 Dose: 0 mcg/min, 0 mls/hr Meropenem 1 gm/ Dextrose 100 mls @ 100 mls/hr IVPB Q8 [facility] PRN Reason: Protocol Stop: 05/06/17 14:01 Last Admin: 05/04/17 06:44 Dose: 100 mls/hr Vasopressin 20 units/ Sodium (Chloride) 101 mls @ 9.09 mls/hr IV .Q11H7M [facility]; 0.03 U/MIN PRN Reason: Protocol Last Admin: 05/04/17 02:15 Dose: Not Given Fentanyl Citrate (Fentanyl Citrate/Sodium Chloride 1 Mg/100 Ml) 1,000 mcg in 100 mls @ 2 mls/hr IV .Q24H PRN; Protocol; 20 MCG/HR PRN Reason: TITRATE PER MD ORDER Last Admin: 05/04/17 02:04 Dose: 150 mcg/hr, 15 mls/hr Sodium Bicarbonate 150 meq/ (Dextrose) 1,150 mls @ 150 mls/hr IV .Q7H40M [facility] Last Admin: 05/03/17 14:50 Dose: Not Given Midazolam 100 mg/100ml in NS (Midazolam 100 Mg/100ml In Ns) 100 mg in 100 mls @ 1 mls/hr IV .Q24H PRN; Protocol; 1 MG/HR PRN Reason: Agitation Last Admin: 05/04/17 06:45 Dose: 10 mg/hr, 10 mls/hr Dextrose/Sodium Chloride (Dextrose 5%/0.45% Ns 1000 Ml) 1,000 mls @ 75 mls/hr IV .[id number] [facility] Last Admin: 05/04/17 00:50 Dose: 75 mls/hr Linezolid (Zyvox 600mg/300ml D5w) 600 mg in 300 mls @ 200 mls/hr IVPB Q12 [facility] PRN Reason: Protocol Stop: 05/11/17 10:01 Midazolam HCl (Versed Inj) 2 mg IVP Q2 PRN PRN Reason: Agitation Last Admin: 05/03/17 18:20 Dose: 2 mg Midodrine (Proamatine) 10 mg PO TID [facility] Last Admin: 05/03/17 18:07 Dose: Not Given Multivitamins/Minerals (Therapeutic-M Tab) 1 tab PO 0800 [facility] Last Admin: 05/03/17 09:15 Dose: Not Given Ondansetron HCl (Zofran Inj) 4 mg IVP Q6H PRN PRN Reason: Nausea/Vomiting Pantoprazole Sodium (Protonix Inj) 40 mg IVP DAILY [facility] Last Admin: 05/03/17 09:14 Dose: 40 mg Vitamin A (Vitamin A&D) 1 applic TP Q8 PRN PRN Reason: dry, cracked lips - Labs Labs: 05/04/17 06:00 05/03/17 06:15 PT 14.4 SECONDS (9.4-12.5) H 05/03/17 06:15 INR 1.30 (0.93-1.08) H 05/03/17 06:15 APTT 32.3 Seconds (25.1-36.5) 05/02/17 05:00 - Constitutional Appears: Other (intubated, sedated) - Head Exam Head Exam: NORMAL INSPECTION - ENT Exam Additional comments: ET tube in place - Respiratory Exam Respiratory Exam: Decreased Breath Sounds Additional comments: left sided chest tube in place - Cardiovascular Exam Cardiovascular Exam: +S1, +S2 - GI/Abdominal Exam GI & Abdominal Exam: Soft. absent: Tenderness Assessment and Plan - Assessment and Plan (Free Text) Plan: Assessment Severe sepsis with ventilator dependent respiratory failure due to left sided severe community-acquired aspiration pneumonia with left sided pleural effusion S/P thoracentesis and now S/P chest tube placement POD #9, S/P VATS and decortication of possible empyema POD #3 - now with acute SIRS with acute drop in Hemoglobin, thrombocytopenia, slowly improving history of alcohol abuse hypothyroidism cataracts S/P left eye surgery HTN dementia Plan restart Zyvox since the platelets are starting to increase again; Merrem and Zithromax day 11; blood cx and pleural fluid cx are negative; will continue monitor chest tube output - OR cultures are negative so far ICU team monitoring Hemoglobin and patient is also being monitored by CT surgery will continue to monitor clinically overall prognosis is poor
--- NOTE | 2017-05-04 10:53 | RAD ---
HISTORY: s/p Thoracotomy, Comparison COMPARISON: Comparison is made to the previous study dated 05/03/2017 FINDINGS: LUNGS: Right-sided PICC line is again seen in place. Interval improvement in the left lung compared to the previous exam with partial re-expansion of the left lung since the previous study. No significant interval change in the right lung. The ET tube is seen at appropriate position. PLEURA: Two left-sided chest tubes are again seen in place. CARDIOVASCULAR: Mild cardiomegaly is again noted. OSSEOUS STRUCTURES: No significant abnormalities. VISUALIZED UPPER ABDOMEN: The NG tube seen extending to the abdomen. OTHER FINDINGS: Postsurgical changes are again seen in the left chest wall. IMPRESSION: Interval improvement in the left lung since the previous exam. Appropriate position of the support devices.
--- NOTE | 2017-05-04 16:06 | CP.PCM.PN ---
Subjective - Date & Time of Evaluation Date of Evaluation: 05/04/17 Time of Evaluation: 07:00 - Subjective Subjective: CT Surgery: Dr. He Pt seen and examined. Overnight no acute events. Pt doing slightly better with down trending white count and improving H/H & coagulapathy. Continues to be intubated and sedated on the vent with CT x 2 on suction, no air leak. Objective - Vital Signs/Intake and Output Vital Signs (last 24 hours): Temp Pulse Resp BP Pulse Ox 97.3 F L 74 18 137/96 H 100 05/04/17 15:35 05/04/17 15:35 05/04/17 07:09 05/04/17 02:15 05/04/17 15:35 Intake and Output: 05/04/17 05/04/17 06:59 18:59 Intake Total 1500 1125 Output Total 750 485 Balance 750 640 - Medications Medications: Current Medications Acetaminophen (Tylenol 325mg Tab) 650 mg PO Q6H PRN PRN Reason: Fever >100.4 F Albuterol/Ipratropium (Duoneb 3 Mg/0.5 Mg (3 Ml) Ud) 3 ml IH [id number] [facility] Last Admin: 05/04/17 13:30 Dose: 3 ml Albuterol/Ipratropium (Duoneb 3 Mg/0.5 Mg (3 Ml) Ud) 3 ml IH Q2H PRN PRN Reason: Shortness of Breath Last Admin: 04/24/17 23:34 Dose: 3 ml Albuterol/Ipratropium (Duoneb 3 Mg/0.5 Mg (3 Ml) Ud) 3 ml IH Q2H PRN PRN Reason: Shortness of Breath Last Admin: 04/25/17 00:30 Dose: 3 ml Chlorhexidine Gluconate (Peridex) 15 ml PO BID [facility] Last Admin: 05/04/17 09:15 Dose: 15 ml Folic Acid (Folic Acid) 1 mg PO DAILY [facility] Last Admin: 05/04/17 09:15 Dose: Not Given Guaifenesin/Dextromethorphan (Robitussin Dm) 5 ml PO Q6H PRN PRN Reason: Cough Heparin Sodium (Porcine) (Heparin) 5,000 units SC Q8 [facility] PRN Reason: Protocol Last Admin: 04/30/17 22:49 Dose: Not Given Hydrocortisone Sodium Succinate (Solu-Cortef) 50 mg IVP DAILY [facility] Last Admin: 05/04/17 10:19 Dose: 50 mg Norepinephrine Bitartrate 8 mg (/ Sodium Chloride) 258 mls @ 7.74 mls/hr IV .Q24H PRN; Protocol; 4 MCG/MIN PRN Reason: TITRATE PER PROTOCOL Last Titration: 05/02/17 18:34 Dose: 0 mcg/min, 0 mls/hr Meropenem 1 gm/ Dextrose 100 mls @ 100 mls/hr IVPB Q8 [facility] PRN Reason: Protocol Stop: 05/06/17 14:01 Last Admin: 05/04/17 13:45 Dose: 100 mls/hr Vasopressin 20 units/ Sodium (Chloride) 101 mls @ 9.09 mls/hr IV .Q11H7M [facility]; 0.03 U/MIN PRN Reason: Protocol Last Admin: 05/04/17 02:15 Dose: Not Given Fentanyl Citrate (Fentanyl Citrate/Sodium Chloride 1 Mg/100 Ml) 1,000 mcg in 100 mls @ 2 mls/hr IV .Q24H PRN; Protocol; 20 MCG/HR PRN Reason: TITRATE PER MD ORDER Last Admin: 05/04/17 08:41 Dose: 150 mcg/hr, 15 mls/hr Sodium Bicarbonate 150 meq/ (Dextrose) 1,150 mls @ 150 mls/hr IV .Q7H40M [facility] Last Admin: 05/03/17 14:50 Dose: Not Given Midazolam 100 mg/100ml in NS (Midazolam 100 Mg/100ml In Ns) 100 mg in 100 mls @ 1 mls/hr IV .Q24H PRN; Protocol; 1 MG/HR PRN Reason: Agitation Last Admin: 05/04/17 06:45 Dose: 10 mg/hr, 10 mls/hr Dextrose/Sodium Chloride (Dextrose 5%/0.45% Ns 1000 Ml) 1,000 mls @ 75 mls/hr IV .[id number] [facility] Last Admin: 05/04/17 00:50 Dose: 75 mls/hr Linezolid (Zyvox 600mg/300ml D5w) 600 mg in 300 mls @ 200 mls/hr IVPB Q12 [facility] PRN Reason: Protocol Stop: 05/11/17 10:01 Last Admin: 05/04/17 09:20 Dose: 200 mls/hr Midazolam HCl (Versed Inj) 2 mg IVP Q2 PRN PRN Reason: Agitation Last Admin: 05/03/17 18:20 Dose: 2 mg Midodrine (Proamatine) 10 mg PO TID [facility] Last Admin: 05/04/17 13:44 Dose: 10 mg Multivitamins/Minerals (Therapeutic-M Tab) 1 tab PO 0800 [facility] Last Admin: 05/04/17 08:11 Dose: Not Given Ondansetron HCl (Zofran Inj) 4 mg IVP Q6H PRN PRN Reason: Nausea/Vomiting Pantoprazole Sodium (Protonix Inj) 40 mg IVP DAILY [facility] Last Admin: 05/04/17 09:20 Dose: 40 mg Vitamin A (Vitamin A & D Oint Ud Foilpak) 1 ea TOP Q8 PRN PRN Reason: dry, cracked lips Last Admin: 05/04/17 09:15 Dose: 1 ea - Labs Labs: 05/04/17 06:00 05/04/17 08:30 PT 14.4 SECONDS (9.4-12.5) H 05/03/17 06:15 INR 1.30 (0.93-1.08) H 05/03/17 06:15 APTT 32.3 Seconds (25.1-36.5) 05/02/17 05:00 - Constitutional Appears: No Acute Distress - Eye Exam Eye Exam: EOMI, PERRL - ENT Exam Additional comments: ETT in place - Respiratory Exam Respiratory Exam: Decreased Breath Sounds Additional comments: Right upper and lower lobe. CT x [address] on Left on sxn, 825cc serosang output/24hrs. No air leak - Cardiovascular Exam Cardiovascular Exam: RRR - GI/Abdominal Exam GI & Abdominal Exam: Soft - Neurological Exam Additional comments: GCS 9T ([id number]) - Skin Skin Exam: Warm Assessment and Plan - Assessment and Plan (Free Text) Assessment: 76M admitted with L chest empyema s/p L thoracotomy & decortication on 05/01 with post-op bleeding and repeat thoracotomy, evacuation of hemothorax and washout on 05/02; POD#2 today Plan: - cont to monitor chest tube output - keep chest tubes on suction - H/H stable; cont to monitor - wean off the vent as tolerated - daily CXR - respiratory toilet - d/w Dr. Ying Jorge, PGY-3 Surgery
[2017-05-04 21:28] LABS: ALB/GLOB RATIO 1.2 (1.1-1.8); ALKALINE PHOSPHATASE 84 U/L (38-126); ALT/SGPT 32 U/L (7-56); AST/SGOT 30 U/L (17-59); BILIRUBIN,TOTAL 2.2 mg/dL (0.2-1.3); BLOOD UREA NITROGEN 28 mg/dL (7-21); CALCIUM 7.7 mg/dL (8.4-10.5); CARBON DIOXIDE 29 mmol/L (21-33); CHLORIDE 109 mmol/L (98-107); GFR AFRICAN-AMERICAN > 60; POTASSIUM 4.2 mmol/L (3.6-5.0); SODIUM 140 mmol/L (132-148); TOTAL PROTEIN 4.6 g/dL (5.8-8.3)
[2017-05-04 21:33] LABS: GLUCOSE,RANDOM 321 mg/dL (70-110)
--- NOTE | 2017-05-04 21:48 | PN ---
DATE: 05/04/2017 SUBJECTIVE: He is sedated and intubated. He is off pressors. He still has chest tube. Requiring intermittent suction. Draining serosanguinous fluid. FiO2 40%. Afebrile. Blood pressure maintained. Blood count stable. PHYSICAL EXAMINATION: VITAL SIGNS: Temperature 98.6, heart rate is 80 per minute, oxygen saturation 100%. Sedated and intubated. Blood pressure 137/96. HEENT: Normal. NECK: No lymphadenopathy. CHEST: Air entry present and equal bilateral. No added sounds. CARDIOVASCULAR: S1 and S2 normal. No murmur. No gallop. ABDOMEN: Soft and nontender. Bowel sounds decreased. Chest tube draining serosanguinous fluid. NEUROLOGIC: Sedated and intubated. SKIN: No petechiae. No rash. LABORATORY DATA: White count 14.7, hemoglobin 8.5, hematocrit 24.6 and platelet count 100,000. Sodium 145, potassium 2.9, BUN 26, creatinine 0.8 and total bilirubin 2.3. MEDICATIONS: Tylenol 650 q. 6 hours p.r.n., DuoNeb, ____ b.i.d., folic acid 1 mg daily, Robitussin, heparin 5000 subcu q. 8, linezolid q. 12 hours, Solu-Cortef, meropenem, Versed, midodrine, norepinephrine drip, Protonix, Vitamin A, tear drops. ASSESSMENT: 1. Respiratory failure. 2. Empyema. 3. Anemia. 4. Thrombocytopenia. 5. Leukocytosis. 6. Sepsis. PLAN: He is hemodynamically stable. Chest tube still draining serosanguinous fluid. Currently on IV antibiotics. Currently on pressors. Sedated and intubated. Condition remained critical. Hemoglobin and hematocrit stable. No need for blood transfusion today. Platelet count stable at 100,000. White count declining to 14.7. Coags; mild coagulopathy. Kylee Avalos MD
[2017-05-05] MEDS: Albuterol-Ipratrop 3 mg / 0.5 (3 ml) UD IH SCH ×4 (02:40→20:05)
[2017-05-05] MEDS: Midazolam 100 mg/100ml in NS 100 MG/100 ML SOL IV PRN (04:39)
[2017-05-05] MEDS: Meropenem 1 GM in Dextrose 5% In Water 100 ML IVPB SCH ×3 (05:30→21:32)
[2017-05-05] MEDS: Fentanyl 1000mcg/100ml NS 1,000 MCG/100 ML BAG IV PRN (06:25)
[2017-05-05 07:20] LABS: BASO # 0.01 K/mm3 (0.0-2.0); BASO % 0.1 % (0.0-3.0); EOS % 0.1 % (1.5-5.0); GRAN # 12.83 (1.4-6.5); GRAN % 88.4 % (50.0-68.0); LYMPH # 0.6 (1.2-3.4); LYMPH % 3.9 % (22.0-35.0); MEAN CELL VOLUME 91.8 fl (80.0-105.0); MEAN CORPUSCULAR HEMOGLOBIN 29.9 pg (25.0-35.0); MEAN CORPUSCULAR HGB CONC 32.6 g/dl (31.0-37.0); MONO # 1.1 (0.1-0.6); MONO % 7.5 % (1.0-6.0); PLATELET COUNT 101 10^3/uL (120.0-450.0); RED CELL DISTRIBUTION WIDTH 18.1 % (11.5-14.5); WHITE BLOOD COUNT 14.5 10^3/ul (4.5-11.0)
[2017-05-05] MEDS: Vitamins A & D Oint UD Foilpak TOP PRN (07:52)
[2017-05-05 08:05] LABS: ALB/GLOB RATIO 1.1 (1.1-1.8); ALKALINE PHOSPHATASE 95 U/L (38-126); ALT/SGPT 35 U/L (7-56); AST/SGOT 29 U/L (17-59); BILIRUBIN,TOTAL 1.8 mg/dL (0.2-1.3); BLOOD UREA NITROGEN 29 mg/dL (7-21); CALCIUM 8.2 mg/dL (8.4-10.5); CARBON DIOXIDE 29 mmol/L (21-33); CHLORIDE 110 mmol/L (98-107); GFR AFRICAN-AMERICAN > 60; GLUCOSE,RANDOM 148 mg/dL (70-110); MAGNESIUM 1.8 mg/dL (1.7-2.2); PHOSPHOROUS 2.8 mg/dL (2.5-4.5); POTASSIUM 4.1 mmol/L (3.6-5.0); SODIUM 142 mmol/L (132-148); TOTAL PROTEIN 4.7 g/dL (5.8-8.3)
--- NOTE | 2017-05-05 08:37 | RAD ---
HISTORY: s/p Thoracotomy, Comparison COMPARISON: 05/04/2017 FINDINGS: LUNGS: Left-sided chest tubes remain in place. There is no pneumothorax. There is an infiltrate at the left lung base that obscures the diaphragm. There is moderate vascular congestion with a right-sided perihilar infiltrate. PLEURA: No significant pleural effusion identified, no pneumothorax apparent. CARDIOVASCULAR: Mild cardiomegaly OSSEOUS STRUCTURES: No significant abnormalities. VISUALIZED UPPER ABDOMEN: Normal. OTHER FINDINGS: Endotracheal and nasogastric tube in satisfactory position IMPRESSION: Left-sided chest tubes remain in place. There is no pneumothorax. There is an infiltrate at the left lung base that obscures the diaphragm. There is moderate vascular congestion with a right-sided perihilar infiltrate.
--- NOTE | 2017-05-05 08:43 | OP ---
PROCEDURE DATE: 05/02/2017 PREOPERATIVE DIAGNOSIS: Status post left thoracotomy for empyema and decortication and now with persistent bleeding. PROCEDURE: Redo thoracotomy for continued bleeding. SURGEON: Benjamin He MD TYPE OF ANESTHESIA: General. FINDINGS: About a liter of clot. No obvious bleeding. There were couple of areas that were cauterized near the chest wall, but other than that we cleaned out and deep copious irrigation and gave some topical hemostatics, but there was no further bleeding. The patient remained hemodynamically stable throughout the procedure. DESCRIPTION OF PROCEDURE: With the left side up all pressure points cushioned. Left chest was washed with Betadine solution and draped in sterile manner. The previous wound was opened and the findings were as a I mentioned. We scooped out lot of clot over the ensuing hour we irrigated with warm saline and searched for any further bleeding. There were couple of air leaks, which in a very friable area, few of these we gave some topical hemostatics as well as pledgeted sutures. There was one air leak that was so friable any suturing was doing more damage and so we have to let that heal on its own with topical hemostatics. Once we are satisfied there was no further bleeding the chest was then closed with heavy PDS and the wound was closed in three layers and the skin closed with dinesh. The patient tolerated procedure and was sent to recovery in stable. Benjamin He MD
--- NOTE | 2017-05-05 08:49 | CP.PCM.PN ---
Subjective - Date & Time of Evaluation Date of Evaluation: 05/05/17 Time of Evaluation: 08:43 - Subjective Subjective: Cardiothoracic Surgery Progress Note for Dr. He Thps patient was seen and\ examined this AM at bedside. PT is GCS 10T he had 800CC serosanguinous output overnight. He is no longer requiring pressors. He is overbreathing the ventilator and saturating 95+ percent on 40% and 5PEEP. Objective - Vital Signs/Intake and Output Vital Signs (last 24 hours): Temp Pulse Resp BP Pulse Ox 96.6 F L 80 18 137/96 H 100 05/05/17 05:30 05/05/17 06:00 05/04/17 07:09 05/04/17 02:15 05/05/17 05:30 Intake and Output: 05/05/17 05/05/17 06:59 18:59 Intake Total 2551 Output Total 580 Balance 1971 - Medications Medications: Current Medications Acetaminophen (Tylenol 325mg Tab) 650 mg PO Q6H PRN PRN Reason: Fever >100.4 F Albuterol/Ipratropium (Duoneb 3 Mg/0.5 Mg (3 Ml) Ud) 3 ml IH [id number] [facility] Last Admin: 05/05/17 08:07 Dose: 3 ml Albuterol/Ipratropium (Duoneb 3 Mg/0.5 Mg (3 Ml) Ud) 3 ml IH Q2H PRN PRN Reason: Shortness of Breath Last Admin: 04/24/17 23:34 Dose: 3 ml Albuterol/Ipratropium (Duoneb 3 Mg/0.5 Mg (3 Ml) Ud) 3 ml IH Q2H PRN PRN Reason: Shortness of Breath Last Admin: 04/25/17 00:30 Dose: 3 ml Chlorhexidine Gluconate (Peridex) 15 ml PO BID [facility] Last Admin: 05/04/17 17:20 Dose: 15 ml Folic Acid (Folic Acid) 1 mg PO DAILY [facility] Last Admin: 05/04/17 09:15 Dose: Not Given Guaifenesin/Dextromethorphan (Robitussin Dm) 5 ml PO Q6H PRN PRN Reason: Cough Heparin Sodium (Porcine) (Heparin) 5,000 units SC Q8 [facility] PRN Reason: Protocol Last Admin: 04/30/17 22:49 Dose: Not Given Hydrocortisone Sodium Succinate (Solu-Cortef) 50 mg IVP DAILY [facility] Last Admin: 05/04/17 10:19 Dose: 50 mg Norepinephrine Bitartrate 8 mg (/ Sodium Chloride) 258 mls @ 7.74 mls/hr IV .Q24H PRN; Protocol; 4 MCG/MIN PRN Reason: TITRATE PER PROTOCOL Last Titration: 05/02/17 18:34 Dose: 0 mcg/min, 0 mls/hr Meropenem 1 gm/ Dextrose 100 mls @ 100 mls/hr IVPB Q8 [facility] PRN Reason: Protocol Stop: 05/06/17 14:01 Last Admin: 05/05/17 05:30 Dose: 100 mls/hr Vasopressin 20 units/ Sodium (Chloride) 101 mls @ 9.09 mls/hr IV .Q11H7M [facility]; 0.03 U/MIN PRN Reason: Protocol Last Admin: 05/04/17 02:15 Dose: Not Given Sodium Bicarbonate 150 meq/ (Dextrose) 1,150 mls @ 150 mls/hr IV .Q7H40M [facility] Last Admin: 05/03/17 14:50 Dose: Not Given Midazolam 100 mg/100ml in NS (Midazolam 100 Mg/100ml In Ns) 100 mg in 100 mls @ 1 mls/hr IV .Q24H PRN; Protocol; 1 MG/HR PRN Reason: Agitation Last Admin: 05/05/17 04:39 Dose: 8 mg/hr, 8 mls/hr Dextrose/Sodium Chloride (Dextrose 5%/0.45% Ns 1000 Ml) 1,000 mls @ 75 mls/hr IV .[id number] [facility] Last Admin: 05/04/17 17:59 Dose: 75 mls/hr Linezolid (Zyvox 600mg/300ml D5w) 600 mg in 300 mls @ 200 mls/hr IVPB Q12 [facility] PRN Reason: Protocol Stop: 05/11/17 10:01 Last Admin: 05/04/17 21:07 Dose: 200 mls/hr Fentanyl Citrate (Fentanyl Citrate/Sodium Chloride 1 Mg/100 Ml) 1,000 mcg in 100 mls @ 15 mls/hr IV .Q6H40M PRN; Protocol; 150 MCG/HR PRN Reason: TITRATE PER MD ORDER Last Admin: 05/05/17 06:25 Dose: 150 mcg/hr, 15 mls/hr Midazolam HCl (Versed Inj) 2 mg IVP Q2 PRN PRN Reason: Agitation Last Admin: 05/03/17 18:20 Dose: 2 mg Midodrine (Proamatine) 10 mg PO TID [facility] Last Admin: 05/04/17 17:09 Dose: 10 mg Multivitamins/Minerals (Therapeutic-M Tab) 1 tab PO 0800 [facility] Last Admin: 05/04/17 08:11 Dose: Not Given Ondansetron HCl (Zofran Inj) 4 mg IVP Q6H PRN PRN Reason: Nausea/Vomiting Pantoprazole Sodium (Protonix Inj) 40 mg IVP DAILY [facility] Last Admin: 05/04/17 09:20 Dose: 40 mg Vitamin A (Vitamin A & D Oint Ud Foilpak) 1 ea TOP Q8 PRN PRN Reason: dry, cracked lips Last Admin: 05/05/17 07:52 Dose: 1 ea - Labs Labs: 05/05/17 06:50 05/05/17 07:50 PT 14.4 SECONDS (9.4-12.5) H 05/03/17 06:15 INR 1.30 (0.93-1.08) H 05/03/17 06:15 APTT 32.3 Seconds (25.1-36.5) 05/02/17 05:00 - Constitutional Appears: Non-toxic, No Acute Distress - Head Exam Head Exam: ATRAUMATIC, NORMOCEPHALIC - Eye Exam Eye Exam: EOMI, Normal appearance - ENT Exam ENT Exam: Mucous Membranes Moist - Respiratory Exam Respiratory Exam: NORMAL BREATHING PATTERN - Cardiovascular Exam Cardiovascular Exam: REGULAR RHYTHM - GI/Abdominal Exam GI & Abdominal Exam: Soft. absent: Rigid, Tenderness - Neurological Exam Neurological Exam: Alert, Awake - Psychiatric Exam Psychiatric exam: Normal Affect, Normal Mood - Skin Skin Exam: Normal Color, Warm Assessment and Plan - Assessment and Plan (Free Text) Assessment: 76M with ETOH who presented in respiratory distress due to a chronic sever empyema likely secondary to aspiration pneumonia. CT to suction Wean from vent when possible Local wound care Will discuss with Dr. Ying Penaloza PGY2
[2017-05-05 09:21] LABS: BAND 5 % (0-2); NEUTROPHIL 85 % (50.0-70.0)
[2017-05-05 09:22] LABS: ANISOCYTOSIS 1+; BURR CELLS SLIGHT; HYPOCHROMIA 1+; LARGE PLATELETS PRESENT; OVALOCYTES SLIGHT; PLATELET ESTIMATE LOW (NORMAL); POLYCHROMASIA SLIGHT; TEAR DROP CELLS SLIGHT
[2017-05-05 09:23] LABS: POIKILOCYTOSIS SLIGHT
[2017-05-05] MEDS: Chlorhexidine 0.12% Oral Sol 480 ml Bot PO SCH ×2 (10:30→18:34)
[2017-05-05] MEDS: Linezolid 600 mg in D5W 300 ml 600 MG/300 ML BAG IVPB SCH ×2 (10:34→21:41)
--- NOTE | 2017-05-05 10:37 | CP.PCM.PN ---
Subjective - Date & Time of Evaluation Date of Evaluation: 05/05/17 Time of Evaluation: 10:20 - Subjective Subjective: Continues to be on the ventilator, no fevers overnight but still on the warming blanket. Still sedated. Still with chest tube. Objective - Vital Signs/Intake and Output Vital Signs (last 24 hours): Temp Pulse Resp BP Pulse Ox 96.6 F L 87 18 137/96 H 100 05/05/17 05:30 05/05/17 05:30 05/04/17 07:09 05/04/17 02:15 05/05/17 05:30 Intake and Output: 05/04/17 05/05/17 18:59 06:59 Intake Total 2235 200 Output Total 1210 Balance 1025 200 - Medications Medications: Current Medications Acetaminophen (Tylenol 325mg Tab) 650 mg PO Q6H PRN PRN Reason: Fever >100.4 F Albuterol/Ipratropium (Duoneb 3 Mg/0.5 Mg (3 Ml) Ud) 3 ml IH [id number] [facility] Last Admin: 05/05/17 02:40 Dose: 3 ml Albuterol/Ipratropium (Duoneb 3 Mg/0.5 Mg (3 Ml) Ud) 3 ml IH Q2H PRN PRN Reason: Shortness of Breath Last Admin: 04/24/17 23:34 Dose: 3 ml Albuterol/Ipratropium (Duoneb 3 Mg/0.5 Mg (3 Ml) Ud) 3 ml IH Q2H PRN PRN Reason: Shortness of Breath Last Admin: 04/25/17 00:30 Dose: 3 ml Chlorhexidine Gluconate (Peridex) 15 ml PO BID [facility] Last Admin: 05/04/17 17:20 Dose: 15 ml Folic Acid (Folic Acid) 1 mg PO DAILY [facility] Last Admin: 05/04/17 09:15 Dose: Not Given Guaifenesin/Dextromethorphan (Robitussin Dm) 5 ml PO Q6H PRN PRN Reason: Cough Heparin Sodium (Porcine) (Heparin) 5,000 units SC Q8 [facility] PRN Reason: Protocol Last Admin: 04/30/17 22:49 Dose: Not Given Hydrocortisone Sodium Succinate (Solu-Cortef) 50 mg IVP DAILY [facility] Last Admin: 05/04/17 10:19 Dose: 50 mg Norepinephrine Bitartrate 8 mg (/ Sodium Chloride) 258 mls @ 7.74 mls/hr IV .Q24H PRN; Protocol; 4 MCG/MIN PRN Reason: TITRATE PER PROTOCOL Last Titration: 05/02/17 18:34 Dose: 0 mcg/min, 0 mls/hr Meropenem 1 gm/ Dextrose 100 mls @ 100 mls/hr IVPB Q8 [facility] PRN Reason: Protocol Stop: 05/06/17 14:01 Last Admin: 05/05/17 05:30 Dose: 100 mls/hr Vasopressin 20 units/ Sodium (Chloride) 101 mls @ 9.09 mls/hr IV .Q11H7M [facility]; 0.03 U/MIN PRN Reason: Protocol Last Admin: 05/04/17 02:15 Dose: Not Given Sodium Bicarbonate 150 meq/ (Dextrose) 1,150 mls @ 150 mls/hr IV .Q7H40M [facility] Last Admin: 05/03/17 14:50 Dose: Not Given Midazolam 100 mg/100ml in NS (Midazolam 100 Mg/100ml In Ns) 100 mg in 100 mls @ 1 mls/hr IV .Q24H PRN; Protocol; 1 MG/HR PRN Reason: Agitation Last Admin: 05/05/17 04:39 Dose: 8 mg/hr, 8 mls/hr Dextrose/Sodium Chloride (Dextrose 5%/0.45% Ns 1000 Ml) 1,000 mls @ 75 mls/hr IV .[id number] [facility] Last Admin: 05/04/17 17:59 Dose: 75 mls/hr Linezolid (Zyvox 600mg/300ml D5w) 600 mg in 300 mls @ 200 mls/hr IVPB Q12 [facility] PRN Reason: Protocol Stop: 05/11/17 10:01 Last Admin: 05/04/17 21:07 Dose: 200 mls/hr Fentanyl Citrate (Fentanyl Citrate/Sodium Chloride 1 Mg/100 Ml) 1,000 mcg in 100 mls @ 15 mls/hr IV .Q6H40M PRN; Protocol; 150 MCG/HR PRN Reason: TITRATE PER MD ORDER Last Admin: 05/05/17 06:25 Dose: 150 mcg/hr, 15 mls/hr Midazolam HCl (Versed Inj) 2 mg IVP Q2 PRN PRN Reason: Agitation Last Admin: 05/03/17 18:20 Dose: 2 mg Midodrine (Proamatine) 10 mg PO TID [facility] Last Admin: 05/04/17 17:09 Dose: 10 mg Multivitamins/Minerals (Therapeutic-M Tab) 1 tab PO 0800 [facility] Last Admin: 05/04/17 08:11 Dose: Not Given Ondansetron HCl (Zofran Inj) 4 mg IVP Q6H PRN PRN Reason: Nausea/Vomiting Pantoprazole Sodium (Protonix Inj) 40 mg IVP DAILY [facility] Last Admin: 05/04/17 09:20 Dose: 40 mg Vitamin A (Vitamin A & D Oint Ud Foilpak) 1 ea TOP Q8 PRN PRN Reason: dry, cracked lips Last Admin: 05/04/17 09:15 Dose: 1 ea - Labs Labs: 05/04/17 06:00 05/04/17 20:50 PT 14.4 SECONDS (9.4-12.5) H 05/03/17 06:15 INR 1.30 (0.93-1.08) H 05/03/17 06:15 APTT 32.3 Seconds (25.1-36.5) 05/02/17 05:00 - Constitutional Appears: Other (intubated, sedated) - Head Exam Head Exam: NORMAL INSPECTION - ENT Exam Additional comments: ET tube in place - Neck Exam Neck Exam: absent: Meningismus - Respiratory Exam Respiratory Exam: Decreased Breath Sounds, Rales (scattered) Additional comments: left sided chest tube in place - Cardiovascular Exam Cardiovascular Exam: +S1, +S2 - GI/Abdominal Exam GI & Abdominal Exam: Soft. absent: Tenderness Assessment and Plan - Assessment and Plan (Free Text) Plan: Assessment Severe sepsis with ventilator dependent respiratory failure due to left sided severe community-acquired aspiration pneumonia with left sided pleural effusion S/P thoracentesis and now S/P chest tube placement POD #10, S/P VATS and decortication of possible empyema POD #4 S/P acute drop in Hemoglobin, thrombocytopenia, slowly improving history of alcohol abuse hypothyroidism cataracts S/P left eye surgery HTN dementia Plan continue Zyvox day 2 since the platelets are starting to increase again; continue Merrem day 12 (we have d/c'ed Zithromax); blood cx and pleural fluid cx are negative; will continue monitor chest tube output - OR cultures are negative ICU team monitoring Hemoglobin and patient is also being monitored by CT surgery will continue to monitor clinically overall prognosis is poor
[2017-05-05] MEDS: Multivitamin With Minerals Tab PO SCH (10:48)
--- NOTE | 2017-05-05 12:16 | CP.CCUPN ---
<Reece Abel - Last Filed: 05/05/17 12:28> CCU Subjective - Physician Review Events Since Last Encounter (Free Text): 05/05/17 12:[address] Santana Pt seen and examined at bedside. No acute events overnight. Pt family at bedside. As per staff, no F/C overnight. CT output ~60cc/hr of serrosang fluid. On no pressors currently. Sedated with Fentanly and versed ggt. CCU Objective - Vital Signs / Intake & Output Vital Signs (Last 4 hours): Vital Signs BP 05/05/17 10:35 108/48 L Intake and Output (Last 8hrs): Intake & Output 05/04/17 05/05/17 05/05/17 22:59 06:59 14:59 Intake Total 1110 2551 Output Total 725 580 Balance 385 1971 Weight 195 lb Intake: IV 690 1651 ANTIBIOTIC 500 Right Upper arm 375 675 fentanyl 75 180 versed drip 40 96 Tube Feeding 420 600 Other 300 Output: Chest Tube Drainage 500 250 Left Mid-Axillary Chest 500 250 Urine 225 330 Urethral (Yu) 225 330 Other: # Bowel Movements 0 - Physical Exam Head: Positive for: Atraumatic, Normocephalic Extroacular Muscles: Positive for: Other (senile archus) Conjunctiva: Positive for: Normal Ears: Positive for: Normal Mouth: Positive for: Moist Mucous Membranes, Other (OGT in place, ET tube in place with bite lock) Pharnyx: Negative for: ERYTHEMA, EXUDATE Nose (External): Positive for: Atraumatic Neck: Positive for: Trachea Midline. Negative for: Meningeal Signs Respiratory/Chest: Positive for: Good Air Exchange, Decreased Breath Sounds (on left base). Negative for: Respiratory Distress, Wheezes, Rales, Rhonchi Cardiovascular: Positive for: Normal S1, S2. Negative for: Murmurs, Rub, Gallop Abdomen: Positive for: Normal Bowel Sounds. Negative for: Tenderness, Distention Back: Negative for: CVA Tenderness Upper Extremity: Positive for: Normal Inspection. Negative for: Cyanosis, Edema , Tenderness Lower Extremity: Positive for: Normal Inspection. Negative for: Edema, CALF TENDERNESS Neurological: Positive for: Other (intubated and sedated) Skin: Positive for: Warm, Dry - Medications Active Medications: Active Medications Generic Name Dose Route Start Last Admin Trade Name Freq PRN Reason Stop Dose Admin Acetaminophen 650 mg 04/23/17 16:13 Tylenol 325mg Tab PO Q6H PRN Fever >100.4 F Albuterol/Ipratropium 3 ml 04/23/17 20:00 05/05/17 08:07 Duoneb 3 Mg/0.5 Mg (3 Ml) Ud IH 3 ml [id number] CEM Administration Albuterol/Ipratropium 3 ml 04/23/17 16:13 04/24/17 23:34 Duoneb 3 Mg/0.5 Mg (3 Ml) Ud IH 3 ml Q2H PRN Administration Shortness of Breath Albuterol/Ipratropium 3 ml 04/25/17 00:07 04/25/17 00:30 Duoneb 3 Mg/0.5 Mg (3 Ml) Ud IH 3 ml Q2H PRN Administration Shortness of Breath Chlorhexidine Gluconate 15 ml 04/26/17 18:00 05/04/17 17:20 Peridex PO 15 ml BID CEM Administration Folic Acid 1 mg 04/27/17 12:00 05/05/17 10:47 Folic Acid PO 1 mg DAILY CEM Administration Guaifenesin/Dextromethorphan 5 ml 04/24/17 19:29 Robitussin Dm PO Q6H PRN Cough Heparin Sodium (Porcine) 5,000 units 04/30/17 10:00 04/30/17 22:49 Heparin SC Not Given Q8 CEM Protocol Meropenem 1 gm/ Dextrose 100 mls @ 100 mls/hr 04/27/17 14:00 05/05/17 05:30 IVPB 05/06/17 14:01 100 mls/hr Q8 CEM Administration Protocol Midazolam 100 mg/100ml in NS 100 mg in 100 mls @ 1 mls/hr 05/02/17 07:34 04:39 Midazolam 100 Mg/100ml In Ns IV 8 mg/hr .Q24H PRN 8 mls/hr Agitation Administration Protocol 1 MG/HR Linezolid 600 mg in 300 mls @ 200 mls/hr 05/04/17 10:00 05/05/17 10:34 Zyvox 600mg/300ml D5w IVPB 05/11/17 10:01 200 mls/hr Q12 CEM Administration Protocol Fentanyl Citrate 1,000 mcg in 100 mls @ 15 mls/hr 05/05/17 01:11 05/05/17 06: 25 Fentanyl Citrate/Sodium Chloride 1 Mg/100 Ml IV 150 mcg/hr .Q6H40M PRN 15 mls/hr TITRATE PER MD ORDER Administration Protocol 150 MCG/HR Midazolam HCl 2 mg 04/29/17 09:28 05/03/17 18:20 Versed Inj IVP 2 mg Q2 PRN Administration Agitation Midodrine 10 mg 04/30/17 10:00 05/05/17 10:47 Proamatine PO 10 mg TID CEM Administration Multivitamins/Minerals 1 tab 04/26/17 12:00 05/05/17 10:48 Therapeutic-M Tab PO Not Given 0800 [facility] Ondansetron HCl 4 mg 04/23/17 16:13 Zofran Inj IVP Q6H PRN Nausea/Vomiting Pantoprazole Sodium 40 mg 04/23/17 16:15 05/05/17 10:36 Protonix Inj IVP 40 mg DAILY CEM Administration Vitamin A 1 ea 05/04/17 08:03 05/05/17 07:52 Vitamin A & D Oint Ud Foilpak TOP 1 ea Q8 PRN Administration dry, cracked lips - Patient Studies Lab Studies: Microbiology Studies 05/01/17 15:23 Gram Stain - Final Other: Please Indicate Anaerobic Culture - Final NO ANAEROBES ISOLATED. Wound Culture - Final No growth. Lab Studies 05/05/17 05/05/17 05/04/17 Range/Units 07:50 06:50 20:50 WBC 14.5 H (4.5-11.0) 10^3/ul RBC 2.94 L (3.5-6.1) 10^6/uL Hgb 8.8 L (14.0-18.0) g/dL Hct 27.0 L (42.0-52.0) % MCV 91.8 D (80.0-105.0) fl MCH 29.9 (25.0-35.0) pg MCHC 32.6 (31.0-37.0) g/dl RDW 18.1 H (11.5-14.5) % Plt Count 101 L (120.0-450.0) 10^3/uL MPV 11.0 (7.0-11.0) fl Gran % 88.4 H (50.0-68.0) % Lymph % (Auto) 3.9 L (22.0-35.0) % Kings % (Auto) 7.5 H (1.0-6.0) % Eos % (Auto) 0.1 L (1.5-5.0) % Baso % (Auto) 0.1 (0.0-3.0) % Gran # 12.83 H (1.4-6.5) Lymph # 0.6 L (1.2-3.4) Kings # 1.1 H (0.1-0.6) Eos # 0.0 (0.0-0.7) Baso # 0.01 (0.0-2.0) K/mm3 Neutrophils % (Manual) 85 H (50.0-70.0) % Band Neutrophils % 5 H (0-2) % Lymphocytes % (Manual) 5 L (22.0-35.0) % Monocytes % (Manual) 5 (1.0-6.0) % Platelet Evaluation Low (NORMAL) Large Platelets Present Polychromasia Slight Hypochromasia 1+ Poikilocytosis (manual Slight Anisocytosis (manual) 1+ Tear Drop Cells Slight Ovalocytes Slight Brinkley Cells Slight Sodium 142 140 (132-148) mmol/L Potassium 4.1 4.2 (3.6-5.0) mmol/L Chloride 110 H 109 H (98-107) mmol/L Carbon Dioxide 29 29 (21-33) mmol/L Anion Gap 7 L 6 L (10-20) BUN 29 H 28 H (7-21) mg/dL Creatinine 0.8 0.8 (0.8-1.5) mg/dL Est GFR ( Amer) > 60 > 60 Est GFR (Non-Af Amer) > 60 > 60 Random Glucose 148 H 321 H* D (70-110) mg/dL Calcium 8.2 L 7.7 L (8.4-10.5) mg/dL Phosphorus 2.8 (2.5-4.5) mg/dL Magnesium 1.8 (1.7-2.2) mg/dL Total Bilirubin 1.8 H 2.2 H (0.2-1.3) mg/dL AST 29 30 (17-59) U/L ALT 35 32 (7-56) U/L Alkaline Phosphatase 95 84 (38-126) U/L Total Protein 4.7 L 4.6 L (5.8-8.3) g/dL Albumin 2.5 L 2.5 L (3.0-4.8) g/dL Globulin 2.2 2.1 gm/dL Albumin/Globulin Ratio 1.1 1.2 (1.1-1.8) Crossmatch 05/02/17 04/30/17 Range/Units 18:00 18:47 WBC (4.5-11.0) 10^3/ul RBC (3.5-6.1) 10^6/uL Hgb (14.0-18.0) g/dL Hct (42.0-52.0) % MCV (80.0-105.0) fl MCH (25.0-35.0) pg MCHC (31.0-37.0) g/dl RDW (11.5-14.5) % Plt Count (120.0-450.0) 10^3/uL MPV (7.0-11.0) fl Gran % (50.0-68.0) % Lymph % (Auto) (22.0-35.0) % Kings % (Auto) (1.0-6.0) % Eos % (Auto) (1.5-5.0) % Baso % (Auto) (0.0-3.0) % Gran # (1.4-6.5) Lymph # (1.2-3.4) Kings # (0.1-0.6) Eos # (0.0-0.7) Baso # (0.0-2.0) K/mm3 Neutrophils % (Manual) (50.0-70.0) % Band Neutrophils % (0-2) % Lymphocytes % (Manual) (22.0-35.0) % Monocytes % (Manual) (1.0-6.0) % Platelet Evaluation (NORMAL) Large Platelets Polychromasia Hypochromasia Poikilocytosis (manual Anisocytosis (manual) Tear Drop Cells Ovalocytes Brinkley Cells Sodium (132-148) mmol/L Potassium (3.6-5.0) mmol/L Chloride (98-107) mmol/L Carbon Dioxide (21-33) mmol/L Anion Gap (10-20) BUN (7-21) mg/dL Creatinine (0.8-1.5) mg/dL Est GFR ( Amer) Est GFR (Non-Af Amer) Random Glucose (70-110) mg/dL Calcium (8.4-10.5) mg/dL Phosphorus (2.5-4.5) mg/dL Magnesium (1.7-2.2) mg/dL Total Bilirubin (0.2-1.3) mg/dL AST (17-59) U/L ALT (7-56) U/L Alkaline Phosphatase (38-126) U/L Total Protein (5.8-8.3) g/dL Albumin (3.0-4.8) g/dL Globulin gm/dL Albumin/Globulin Ratio (1.1-1.8) Crossmatch See Detail See Detail Laboratory Results - last 24 hr 04/30/17 05/02/17 05/04/17 18:47 18:00 20:50 WBC RBC Hgb Hct MCV MCH MCHC RDW Plt Count MPV Gran % Lymph % (Auto) Kings % (Auto) Eos % (Auto) Baso % (Auto) Gran # Lymph # Kings # Eos # Baso # Neutrophils % (Manual) Band Neutrophils % Lymphocytes % (Manual) Monocytes % (Manual) Platelet Evaluation Large Platelets Polychromasia Hypochromasia Poikilocytosis (manual Anisocytosis (manual) Tear Drop Cells Ovalocytes Brinkley Cells Sodium 140 Potassium 4.2 Chloride 109 H Carbon Dioxide 29 Anion Gap 6 L BUN 28 H Creatinine 0.8 Est GFR ( Amer) > 60 Est GFR (Non-Af Amer) > 60 Random Glucose 321 H* D Calcium 7.7 L Phosphorus Magnesium Total Bilirubin 2.2 H AST 30 ALT 32 Alkaline Phosphatase 84 Total Protein 4.6 L Albumin 2.5 L Globulin 2.1 Albumin/Globulin Ratio 1.2 Crossmatch See Detail See Detail 05/05/17 05/05/17 06:50 07:50 WBC 14.5 H RBC 2.94 L Hgb 8.8 L Hct 27.0 L MCV 91.8 D MCH 29.9 MCHC 32.6 RDW 18.1 H Plt Count 101 L MPV 11.0 Gran % 88.4 H Lymph % (Auto) 3.9 L Kings % (Auto) 7.5 H Eos % (Auto) 0.1 L Baso % (Auto) 0.1 Gran # 12.83 H Lymph # 0.6 L Kings # 1.1 H Eos # 0.0 Baso # 0.01 Neutrophils % (Manual) 85 H Band Neutrophils % 5 H Lymphocytes % (Manual) 5 L Monocytes % (Manual) 5 Platelet Evaluation Low Large Platelets Present Polychromasia Slight Hypochromasia 1+ Poikilocytosis (manual Slight Anisocytosis (manual) 1+ Tear Drop Cells Slight Ovalocytes Slight Lizbeth Cells Slight Sodium 142 Potassium 4.1 Chloride 110 H Carbon Dioxide 29 Anion Gap 7 L BUN 29 H Creatinine 0.8 Est GFR ( Amer) > 60 Est GFR (Non-Af Amer) > 60 Random Glucose 148 H Calcium 8.2 L Phosphorus 2.8 Magnesium 1.8 Total Bilirubin 1.8 H AST 29 ALT 35 Alkaline Phosphatase 95 Total Protein 4.7 L Albumin 2.5 L Globulin 2.2 Albumin/Globulin Ratio 1.1 Crossmatch Fingerstick Blood Sugar Results: 46 Assessment/Plan - Assessment and Plan (Free Text) Assessment: 76yo M w/ PMHx of dementia, ETOH abuse, and HTN who was admitted to the ICU with sepsis secondary to left sided empyema, s/p chest tube/thoracenthesis on with immediate 1.5L of purulent fluid removed. Hospital course complicated with probable demand ischemia noted on 04/28. Thoracotomy w/ decortication on 05/01 complicated with post-op bleeding, returned to OR 05/02 with adequate hemostasis achieved. Patient coagulopathy improving s/p massive blood/blood product transfusion over the weekend. Patient is maintained on ventilation and off of pressor support. Neuro: History of dementia, currently intubated and sedated with fentanyl and versed- opens eyes and moves extremities spontaneously Continue sedation vacation daily Cardio: improving septic shock, MAPs maintained > 65 off of pressor support EKG changes noted on 04/28 troponins trended, reviewed, and appreciated- possible demand ischemia VSS, hemodynamically stable ECHO - dilated RA, dilated LA. LVEF wnl Midodrine 10mg PO TID Cardiology following. Pulm: Large left-sided empyema s/p Thoracotomy 05/01, complicated with post-op bleeding , returned to OR on 05/02 with adequate hemostasis. H/H stable. Hb 8.8 this AM. Will continue to monitor CT output ~60cc/hr of serosang output intubated for airway protection, will perform pressure support trials on vent, PRVC, 40% FiO2, 5 PEEP, RR18 Continue Duonebs Continue meropenem D8, and Zyvox D6. (Zyvox started on 04/30) Cont aspiration precautions CT Surgery following, Dr. He GI: on tube feeds Hyperbiliruinemia improving Protonix for prophylaxis Possible degree of liver dysfunction in the setting of ETOH abuse, coagulopathy noted Renal/Electrolytes: Cont strict I&O monitor and replete as needed ID: Sepsis improving, Left chest empyema likely source WBC trending down, reviewed As above cont merrem/zyvox ID Dr. Shore following, recs appreciated Maintain euthermia Endo: Maintain euglycemia blood sugars between 140-180 off solu-cotef now Heme: hemoglobin trended, reviewed, and appreciated- stable Coagulopathy improved SCDs Discussed case with Dr. Esther Abel PGY1 <Jonathan Santana - Last Filed: 05/05/17 13:59> CCU Objective - Vital Signs / Intake & Output Vital Signs (Last 4 hours): Vital Signs BP 05/05/17 10:35 108/48 L Intake and Output (Last 8hrs): Intake & Output 05/04/17 05/05/17 05/05/17 22:59 06:59 14:59 Intake Total 1110 2551 Output Total 725 580 Balance 385 1971 Weight 195 lb Intake: IV 690 1651 ANTIBIOTIC 500 Right Upper arm 375 675 fentanyl 75 180 versed drip 40 96 Tube Feeding 420 600 Other 300 Output: Chest Tube Drainage 500 250 Left Mid-Axillary Chest 500 250 Urine 225 330 Urethral (Yu) 225 330 Other: # Bowel Movements 0 - Medications Active Medications: Active Medications Generic Name Dose Route Start Last Admin Trade Name Freq PRN Reason Stop Dose Admin Acetaminophen 650 mg 04/23/17 16:13 Tylenol 325mg Tab PO Q6H PRN Fever >100.4 F Albuterol/Ipratropium 3 ml 04/23/17 20:00 05/05/17 13:45 Duoneb 3 Mg/0.5 Mg (3 Ml) Ud IH 3 ml [id number] CEM Administration Albuterol/Ipratropium 3 ml 04/23/17 16:13 04/24/17 23:34 Duoneb 3 Mg/0.5 Mg (3 Ml) Ud IH 3 ml Q2H PRN Administration Shortness of Breath Albuterol/Ipratropium 3 ml 04/25/17 00:07 04/25/17 00:30 Duoneb 3 Mg/0.5 Mg (3 Ml) Ud IH 3 ml Q2H PRN Administration Shortness of Breath Chlorhexidine Gluconate 15 ml 04/26/17 18:00 05/04/17 17:20 Peridex PO 15 ml BID CEM Administration Folic Acid 1 mg 04/27/17 12:00 05/05/17 10:47 Folic Acid PO 1 mg DAILY CEM Administration Guaifenesin/Dextromethorphan 5 ml 04/24/17 19:29 Robitussin Dm PO Q6H PRN Cough Heparin Sodium (Porcine) 5,000 units 04/30/17 10:00 04/30/17 22:49 Heparin SC Not Given Q8 CEM Protocol Meropenem 1 gm/ Dextrose 100 mls @ 100 mls/hr 04/27/17 14:00 05/05/17 05:30 IVPB 05/06/17 14:01 100 mls/hr Q8 CEM Administration Protocol Midazolam 100 mg/100ml in NS 100 mg in 100 mls @ 1 mls/hr 05/02/17 07:34 04:39 Midazolam 100 Mg/100ml In Ns IV 8 mg/hr .Q24H PRN 8 mls/hr Agitation Administration Protocol 1 MG/HR Linezolid 600 mg in 300 mls @ 200 mls/hr 05/04/17 10:00 05/05/17 10:34 Zyvox 600mg/300ml D5w IVPB 05/11/17 10:01 200 mls/hr Q12 CEM Administration Protocol Fentanyl Citrate 1,000 mcg in 100 mls @ 15 mls/hr 05/05/17 01:11 05/05/17 06: 25 Fentanyl Citrate/Sodium Chloride 1 Mg/100 Ml IV 150 mcg/hr .Q6H40M PRN 15 mls/hr TITRATE PER MD ORDER Administration Protocol 150 MCG/HR Midazolam HCl 2 mg 04/29/17 09:28 05/03/17 18:20 Versed Inj IVP 2 mg Q2 PRN Administration Agitation Midodrine 10 mg 04/30/17 10:00 05/05/17 10:47 Proamatine PO 10 mg TID CEM Administration Multivitamins/Minerals 1 tab 04/26/17 12:00 05/05/17 10:48 Therapeutic-M Tab PO Not Given 0800 [facility] Ondansetron HCl 4 mg 04/23/17 16:13 Zofran Inj IVP Q6H PRN Nausea/Vomiting Pantoprazole Sodium 40 mg 04/23/17 16:15 05/05/17 10:36 Protonix Inj IVP 40 mg DAILY CEM Administration Vitamin A 1 ea 05/04/17 08:03 05/05/17 07:52 Vitamin A & D Oint Ud Foilpak TOP 1 ea Q8 PRN Administration dry, cracked lips - Patient Studies Lab Studies: Microbiology Studies 05/01/17 15:23 Gram Stain - Final Other: Please Indicate Anaerobic Culture - Final NO ANAEROBES ISOLATED. Wound Culture - Final No growth. Lab Studies 05/05/17 05/05/17 05/04/17 Range/Units 07:50 06:50 20:50 WBC 14.5 H (4.5-11.0) 10^3/ul RBC 2.94 L (3.5-6.1) 10^6/uL Hgb 8.8 L (14.0-18.0) g/dL Hct 27.0 L (42.0-52.0) % MCV 91.8 D (80.0-105.0) fl MCH 29.9 (25.0-35.0) pg MCHC 32.6 (31.0-37.0) g/dl RDW 18.1 H (11.5-14.5) % Plt Count 101 L (120.0-450.0) 10^3/uL MPV 11.0 (7.0-11.0) fl Gran % 88.4 H (50.0-68.0) % Lymph % (Auto) 3.9 L (22.0-35.0) % Kings % (Auto) 7.5 H (1.0-6.0) % Eos % (Auto) 0.1 L (1.5-5.0) % Baso % (Auto) 0.1 (0.0-3.0) % Gran # 12.83 H (1.4-6.5) Lymph # 0.6 L (1.2-3.4) Kings # 1.1 H (0.1-0.6) Eos # 0.0 (0.0-0.7) Baso # 0.01 (0.0-2.0) K/mm3 Neutrophils % (Manual) 85 H (50.0-70.0) % Band Neutrophils % 5 H (0-2) % Lymphocytes % (Manual) 5 L (22.0-35.0) % Monocytes % (Manual) 5 (1.0-6.0) % Platelet Evaluation Low (NORMAL) Large Platelets Present Polychromasia Slight Hypochromasia 1+ Poikilocytosis (manual Slight Anisocytosis (manual) 1+ Tear Drop Cells Slight Ovalocytes Slight Brinkley Cells Slight Sodium 142 140 (132-148) mmol/L Potassium 4.1 4.2 (3.6-5.0) mmol/L Chloride 110 H 109 H (98-107) mmol/L Carbon Dioxide 29 29 (21-33) mmol/L Anion Gap 7 L 6 L (10-20) BUN 29 H 28 H (7-21) mg/dL Creatinine 0.8 0.8 (0.8-1.5) mg/dL Est GFR ( Amer) > 60 > 60 Est GFR (Non-Af Amer) > 60 > 60 Random Glucose 148 H 321 H* D (70-110) mg/dL Calcium 8.2 L 7.7 L (8.4-10.5) mg/dL Phosphorus 2.8 (2.5-4.5) mg/dL Magnesium 1.8 (1.7-2.2) mg/dL Total Bilirubin 1.8 H 2.2 H (0.2-1.3) mg/dL AST 29 30 (17-59) U/L ALT 35 32 (7-56) U/L Alkaline Phosphatase 95 84 (38-126) U/L Total Protein 4.7 L 4.6 L (5.8-8.3) g/dL Albumin 2.5 L 2.5 L (3.0-4.8) g/dL Globulin 2.2 2.1 gm/dL Albumin/Globulin Ratio 1.1 1.2 (1.1-1.8) Crossmatch 05/02/17 04/30/17 Range/Units 18:00 18:47 WBC (4.5-11.0) 10^3/ul RBC (3.5-6.1) 10^6/uL Hgb (14.0-18.0) g/dL Hct (42.0-52.0) % MCV (80.0-105.0) fl MCH (25.0-35.0) pg MCHC (31.0-37.0) g/dl RDW (11.5-14.5) % Plt Count (120.0-450.0) 10^3/uL MPV (7.0-11.0) fl Gran % (50.0-68.0) % Lymph % (Auto) (22.0-35.0) % Kings % (Auto) (1.0-6.0) % Eos % (Auto) (1.5-5.0) % Baso % (Auto) (0.0-3.0) % Gran # (1.4-6.5) Lymph # (1.2-3.4) Kings # (0.1-0.6) Eos # (0.0-0.7) Baso # (0.0-2.0) K/mm3 Neutrophils % (Manual) (50.0-70.0) % Band Neutrophils % (0-2) % Lymphocytes % (Manual) (22.0-35.0) % Monocytes % (Manual) (1.0-6.0) % Platelet Evaluation (NORMAL) Large Platelets Polychromasia Hypochromasia Poikilocytosis (manual Anisocytosis (manual) Tear Drop Cells Ovalocytes Lizbeth Cells Sodium (132-148) mmol/L Potassium (3.6-5.0) mmol/L Chloride (98-107) mmol/L Carbon Dioxide (21-33) mmol/L Anion Gap (10-20) BUN (7-21) mg/dL Creatinine (0.8-1.5) mg/dL Est GFR ( Amer) Est GFR (Non-Af Amer) Random Glucose (70-110) mg/dL Calcium (8.4-10.5) mg/dL Phosphorus (2.5-4.5) mg/dL Magnesium (1.7-2.2) mg/dL Total Bilirubin (0.2-1.3) mg/dL AST (17-59) U/L ALT (7-56) U/L Alkaline Phosphatase (38-126) U/L Total Protein (5.8-8.3) g/dL Albumin (3.0-4.8) g/dL Globulin gm/dL Albumin/Globulin Ratio (1.1-1.8) Crossmatch See Detail See Detail Laboratory Results - last 24 hr 04/30/17 05/02/17 05/04/17 18:47 18:00 20:50 WBC RBC Hgb Hct MCV MCH MCHC RDW Plt Count MPV Gran % Lymph % (Auto) Kings % (Auto) Eos % (Auto) Baso % (Auto) Gran # Lymph # Kings # Eos # Baso # Neutrophils % (Manual) Band Neutrophils % Lymphocytes % (Manual) Monocytes % (Manual) Platelet Evaluation Large Platelets Polychromasia Hypochromasia Poikilocytosis (manual Anisocytosis (manual) Tear Drop Cells Ovalocytes Lizbeth Cells Sodium 140 Potassium 4.2 Chloride 109 H Carbon Dioxide 29 Anion Gap 6 L BUN 28 H Creatinine 0.8 Est GFR ( Amer) > 60 Est GFR (Non-Af Amer) > 60 Random Glucose 321 H* D Calcium 7.7 L Phosphorus Magnesium Total Bilirubin 2.2 H AST 30 ALT 32 Alkaline Phosphatase 84 Total Protein 4.6 L Albumin 2.5 L Globulin 2.1 Albumin/Globulin Ratio 1.2 Crossmatch See Detail See Detail 05/05/17 05/05/17 06:50 07:50 WBC 14.5 H RBC 2.94 L Hgb 8.8 L Hct 27.0 L MCV 91.8 D MCH 29.9 MCHC 32.6 RDW 18.1 H Plt Count 101 L MPV 11.0 Gran % 88.4 H Lymph % (Auto) 3.9 L Kings % (Auto) 7.5 H Eos % (Auto) 0.1 L Baso % (Auto) 0.1 Gran # 12.83 H Lymph # 0.6 L Kings # 1.1 H Eos # 0.0 Baso # 0.01 Neutrophils % (Manual) 85 H Band Neutrophils % 5 H Lymphocytes % (Manual) 5 L Monocytes % (Manual) 5 Platelet Evaluation Low Large Platelets Present Polychromasia Slight Hypochromasia 1+ Poikilocytosis (manual Slight Anisocytosis (manual) 1+ Tear Drop Cells Slight Ovalocytes Slight Lizbeth Cells Slight Sodium 142 Potassium 4.1 Chloride 110 H Carbon Dioxide 29 Anion Gap 7 L BUN 29 H Creatinine 0.8 Est GFR ( Amer) > 60 Est GFR (Non-Af Amer) > 60 Random Glucose 148 H Calcium 8.2 L Phosphorus 2.8 Magnesium 1.8 Total Bilirubin 1.8 H AST 29 ALT 35 Alkaline Phosphatase 95 Total Protein 4.7 L Albumin 2.5 L Globulin 2.2 Albumin/Globulin Ratio 1.1 Crossmatch Assessment/Plan - Assessment and Plan (Free Text) Assessment: Patient seen and examined, on rounds with resident, agree with note, with following additions/exceptions: Patient is 76yo male a/w septic shock, 2/2 PNA/Empyema, s/p thoracentesis and Chest tube drainage with large bore CT, s/p thorcatomy with CT surgery, post op course complicated with thoracic bleeding, retaken back to the OR, hemostasis achieved, currently afebrile, HD stable, comfortable, intubated, off pressors. CXR with improvement of L effusion. CT surgery following. On exam, intubated, sedated, but arousable, does not follow commands, daily CPAP trials in place, patient not ready to be extubated . CT drainage with 800cc/12h, serosanginous. Septic Shock, resolved Empyema/Pleural Effusion s/p thoracotomy PNA Hypothyroidism Recommend - cont with ventilatory support, low tidal vol ventilation - antibiotics as per ID - follow up cultures, procalcitonin - daily sedation vacation, CPAP trials - DC IVF - Lasix IV x 1 - replace PICC line - follow up cardiology - consider starting low dose Betablocker - monitor HH - monitor FS - follow up CT Surgery - MVT, Thiamine, Folic Acid - GI ppx - DVT ppx critical care time 45 minutes
--- NOTE | 2017-05-05 16:54 | PN ---
DATE: SUBJECTIVE: The patient is 76 years old, remained intubated. He is sedated, has Linette Hugger on. PHYSICAL EXAMINATION: VITAL SIGNS: Temperature of 96.6, pulse 80, respirations 18, blood pressure 108/48 on 40% of FiO2. GENERAL: The patient is still on vent. Nasogastric and endotracheal tube is in place. LUNGS: Bilateral lungs; good airflow in upper lung region, decreased at the left base. HEART: S1 and S2 audible. ABDOMEN: Soft, nontender. No rebound. No guarding. NEUROLOGIC: He is sedated and minimally responsive. Bilateral leg SCD is on. LABORATORY DATA: WBC is 14.5, hemoglobin 8.8, hematocrit 27, and platelet of 101. Chemistry; sodium 142, potassium 4.1, chloride 110, CO2 of 29, BUN 29, creatinine 0.8, and blood sugar 148. X-ray of chest done this morning shows left-sided chest tube in place and no pneumothorax. There is infiltrate at the left lung base obscuring the diaphragm. There is moderate vascular congestion with right-sided perihilar infiltrate. ASSESSMENT: 1. Respiratory failure. 2. Left empyema, status post open thoracotomy. 3. Coagulopathy secondary to chronic alcohol use. 4. Anemia. 5. Thrombocytopenia, status post multiple blood transfusions. PLAN: To continue vent support. He is on nebulizer treatment. He is on DVT prophylaxis. He is receiving meropenem and Protonix. He is on Zyvox as per ID recommendation, we will continue that. Follow up CBC and CMP in a.m. Tony Ochoa MD
[2017-05-06] MEDS: Meropenem 1 GM in Dextrose 5% In Water 100 ML IVPB SCH ×2 (05:32→13:42)
[2017-05-06 06:15] LABS: ARTERIAL BLOOD GAS HCO3 25.9 mmol/L (21-28); ARTERIAL BLOOD GAS PH 7.43 (7.35-7.45)
[2017-05-06 06:53] LABS: BASO # 0.02 K/mm3 (0.0-2.0); BASO % 0.1 % (0.0-3.0); EOS # 0.2 (0.0-0.7); EOS % 1.3 % (1.5-5.0); GRAN # 13.75 (1.4-6.5); GRAN % 85.9 % (50.0-68.0); HEMATOCRIT 28.7 % (42.0-52.0); LYMPH # 1.1 (1.2-3.4); LYMPH % 6.7 % (22.0-35.0); MEAN CORPUSCULAR HEMOGLOBIN 30.8 pg (25.0-35.0); MEAN CORPUSCULAR HGB CONC 32.4 g/dl (31.0-37.0); MEAN PLATELET VOLUME 10.3 fl (7.0-11.0); RED CELL DISTRIBUTION WIDTH 19.1 % (11.5-14.5)
[2017-05-06 06:56] LABS: ALKALINE PHOSPHATASE 163 U/L (38-126); ALT/SGPT 46 U/L (7-56); AST/SGOT 44 U/L (17-59); BLOOD UREA NITROGEN 38 mg/dL (7-21); CALCIUM 8.3 mg/dL (8.4-10.5); CARBON DIOXIDE 28 mmol/L (21-33); CHLORIDE 108 mmol/L (95-110); GFR AFRICAN-AMERICAN > 60; GLUCOSE,RANDOM 119 mg/dL (70-110); MAGNESIUM 1.9 mg/dL (1.7-2.2); SODIUM 141 mmol/L (132-148); TOTAL PROTEIN 4.6 g/dL (5.8-8.3)
[2017-05-06 07:24] LABS: BILIRUBIN,TOTAL 1.9 mg/dL (0.2-1.3)
[2017-05-06] MEDS: Albuterol-Ipratrop 3 mg / 0.5 (3 ml) UD IH SCH ×3 (07:38→20:10)
--- NOTE | 2017-05-06 07:43 | CP.CCUPN ---
<Tawanda Arora - Last Filed: 05/06/17 08:54> CCU Subjective - Physician Review Subjective (Free Text): Patient seen and examined at bedside. Resting comfortably in bed. Intubated and sedated. No acute overnight events. Chest tube output from 7p to 7a was approximately 600cc of sanginous fluid and 300cc of juan colored urine. Patient also experienced one nonbloody bowel movement. 12-point review of systems cannot be ascertained at this time due to altered mental status. 05/06/17 07:39 05/06/17 08:54 CCU Objective - Vital Signs / Intake & Output Vital Signs (Last 4 hours): Vital Signs Temp Pulse Resp BP Pulse Ox 05/06/17 06:00 103 H 22 110/65 98 05/06/17 05:00 114 H 17 91/73 L 100 05/06/17 04:00 100.4 F H 96 H 18 144/63 99 Intake and Output (Last 8hrs): Intake & Output 05/05/17 05/06/17 05/06/17 22:59 06:59 14:59 Output Total 30 Balance -30 Output: Chest Tube Drainage 30 Left Mid-Axillary Chest 30 - Physical Exam Head: Positive for: Atraumatic, Normocephalic Extroacular Muscles: Positive for: Other (senile archus) Conjunctiva: Positive for: Normal Ears: Positive for: Normal Mouth: Positive for: Moist Mucous Membranes, Other (OGT in place, ET tube in place with bite lock) Pharnyx: Positive for: Other (intubated). Negative for: ERYTHEMA, EXUDATE Nose (External): Positive for: Atraumatic Neck: Positive for: Trachea Midline. Negative for: Meningeal Signs Respiratory/Chest: Positive for: Good Air Exchange, Decreased Breath Sounds (on left base). Negative for: Respiratory Distress, Wheezes, Rales, Rhonchi Cardiovascular: Positive for: Normal S1, S2. Negative for: Murmurs, Rub, Gallop Abdomen: Positive for: Normal Bowel Sounds. Negative for: Tenderness, Distention Back: Negative for: CVA Tenderness Upper Extremity: Positive for: Normal Inspection. Negative for: Cyanosis, Edema , Tenderness Lower Extremity: Positive for: NORMAL PULSES. Negative for: Edema, CALF TENDERNESS, Deformity Neurological: Positive for: Other (intubated and sedated) Skin: Positive for: Warm, Dry, Other (pus noted at chest tube incision site) Psychiatric: Positive for: Other (intubated and sedated) - Medications Active Medications: Active Medications Generic Name Dose Route Start Last Admin Trade Name Freq PRN Reason Stop Dose Admin Acetaminophen 650 mg 04/23/17 16:13 Tylenol 325mg Tab PO Q6H PRN Fever >100.4 F Albuterol/Ipratropium 3 ml 04/23/17 20:00 05/06/17 07:38 Duoneb 3 Mg/0.5 Mg (3 Ml) Ud IH 3 ml [id number] CEM Administration Albuterol/Ipratropium 3 ml 04/23/17 16:13 04/24/17 23:34 Duoneb 3 Mg/0.5 Mg (3 Ml) Ud IH 3 ml Q2H PRN Administration Shortness of Breath Albuterol/Ipratropium 3 ml 04/25/17 00:07 04/25/17 00:30 Duoneb 3 Mg/0.5 Mg (3 Ml) Ud IH 3 ml Q2H PRN Administration Shortness of Breath Chlorhexidine Gluconate 15 ml 04/26/17 18:00 05/05/17 18:34 Peridex PO 15 ml BID CEM Administration Folic Acid 1 mg 04/27/17 12:00 05/05/17 10:47 Folic Acid PO 1 mg DAILY CEM Administration Guaifenesin/Dextromethorphan 5 ml 04/24/17 19:29 Robitussin Dm PO Q6H PRN Cough Heparin Sodium (Porcine) 5,000 units 04/30/17 10:00 04/30/17 22:49 Heparin SC Not Given Q8 CEM Protocol Meropenem 1 gm/ Dextrose 100 mls @ 100 mls/hr 04/27/17 14:00 05/06/17 05:32 IVPB 05/06/17 14:01 100 mls/hr Q8 CEM Administration Protocol Midazolam 100 mg/100ml in NS 100 mg in 100 mls @ 1 mls/hr 05/02/17 07:34 04:39 Midazolam 100 Mg/100ml In Ns IV 8 mg/hr .Q24H PRN 8 mls/hr Agitation Administration Protocol 1 MG/HR Linezolid 600 mg in 300 mls @ 200 mls/hr 05/04/17 10:00 05/05/17 21:41 Zyvox 600mg/300ml D5w IVPB 05/11/17 10:01 200 mls/hr Q12 CEM Administration Protocol Fentanyl Citrate 1,000 mcg in 100 mls @ 15 mls/hr 05/05/17 01:11 05/05/17 06: 25 Fentanyl Citrate/Sodium Chloride 1 Mg/100 Ml IV 150 mcg/hr .Q6H40M PRN 15 mls/hr TITRATE PER MD ORDER Administration Protocol 150 MCG/HR Midazolam HCl 2 mg 04/29/17 09:28 05/03/17 18:20 Versed Inj IVP 2 mg Q2 PRN Administration Agitation Midodrine 10 mg 04/30/17 10:00 05/05/17 18:38 Proamatine PO 10 mg TID CEM Administration Multivitamins/Minerals 1 tab 04/26/17 12:00 05/05/17 10:48 Therapeutic-M Tab PO Not Given 0800 CEM Ondansetron HCl 4 mg 04/23/17 16:13 Zofran Inj IVP Q6H PRN Nausea/Vomiting Pantoprazole Sodium 40 mg 04/23/17 16:15 05/05/17 10:36 Protonix Inj IVP 40 mg DAILY CEM Administration Vitamin A 1 ea 05/04/17 08:03 05/05/17 07:52 Vitamin A & D Oint Ud Foilpak TOP 1 ea Q8 PRN Administration dry, cracked lips - Patient Studies Lab Studies: Microbiology Studies 04/24/17 17:20 Fungal Culture - Preliminary Pleural Fluid NO FUNGUS GROWTH IN 1 WEEK. Lab Studies 05/06/17 05/06/17 05/05/17 Range/Units 05:50 05:50 07:50 WBC 16.0 H (4.5-11.0) 10^3/ul RBC 3.02 L (3.5-6.1) 10^6/uL Hgb 9.3 L (14.0-18.0) g/dL Hct 28.7 L (42.0-52.0) % MCV 95.0 D (80.0-105.0) fl MCH 30.8 (25.0-35.0) pg MCHC 32.4 (31.0-37.0) g/dl RDW 19.1 H (11.5-14.5) % Plt Count 85 L (120.0-450.0) 10^3/uL MPV 10.3 (7.0-11.0) fl Gran % 85.9 H (50.0-68.0) % Lymph % (Auto) 6.7 L (22.0-35.0) % [place] % (Auto) 6.0 (1.0-6.0) % Eos % (Auto) 1.3 L (1.5-5.0) % Baso % (Auto) 0.1 (0.0-3.0) % Gran # 13.75 H (1.4-6.5) Lymph # 1.1 L (1.2-3.4) [place] # 1.0 H (0.1-0.6) Eos # 0.2 (0.0-0.7) Baso # 0.02 (0.0-2.0) K/mm3 Neutrophils % (Manual) (50.0-70.0) % Band Neutrophils % (0-2) % Lymphocytes % (Manual) (22.0-35.0) % Monocytes % (Manual) (1.0-6.0) % Platelet Evaluation (NORMAL) Large Platelets Polychromasia Hypochromasia Poikilocytosis (manual Anisocytosis (manual) Tear Drop Cells Ovalocytes [place] Cells Sodium 141 142 (132-148) mmol/L Potassium 4.0 4.1 (3.6-5.0) mmol/L Chloride 108 110 H (98-107) mmol/L Carbon Dioxide 28 29 (21-33) mmol/L Anion Gap 9 L 7 L (10-20) BUN 38 H 29 H (7-21) mg/dL Creatinine 1.0 0.8 (0.8-1.5) mg/dL Est GFR ( Amer) > 60 > 60 Est GFR (Non-Af Amer) > 60 > 60 Random Glucose 119 H 148 H (70-110) mg/dL Calcium 8.3 L 8.2 L (8.4-10.5) mg/dL Phosphorus 3.0 2.8 (2.5-4.5) mg/dL Magnesium 1.9 1.8 (1.7-2.2) mg/dL Total Bilirubin 1.9 H 1.8 H (0.2-1.3) mg/dL AST 44 29 (17-59) U/L ALT 46 35 (7-56) U/L Alkaline Phosphatase 163 H D 95 (38-126) U/L Total Protein 4.6 L 4.7 L (5.8-8.3) g/dL Albumin 2.3 L 2.5 L (3.0-4.8) g/dL Globulin 2.3 2.2 gm/dL Albumin/Globulin Ratio 1.0 L 1.1 (1.1-1.8) Crossmatch 05/05/17 05/02/17 04/30/17 Range/Units 06:50 18:00 18:47 WBC (4.5-11.0) 10^3/ul RBC (3.5-6.1) 10^6/uL Hgb (14.0-18.0) g/dL Hct (42.0-52.0) % MCV (80.0-105.0) fl MCH (25.0-35.0) pg MCHC (31.0-37.0) g/dl RDW (11.5-14.5) % Plt Count (120.0-450.0) 10^3/uL MPV (7.0-11.0) fl Gran % (50.0-68.0) % Lymph % (Auto) (22.0-35.0) % [place] % (Auto) (1.0-6.0) % Eos % (Auto) (1.5-5.0) % Baso % (Auto) (0.0-3.0) % Gran # (1.4-6.5) Lymph # (1.2-3.4) [place] # (0.1-0.6) Eos # (0.0-0.7) Baso # (0.0-2.0) K/mm3 Neutrophils % (Manual) 85 H (50.0-70.0) % Band Neutrophils % 5 H (0-2) % Lymphocytes % (Manual) 5 L (22.0-35.0) % Monocytes % (Manual) 5 (1.0-6.0) % Platelet Evaluation Low (NORMAL) Large Platelets Present Polychromasia Slight Hypochromasia 1+ Poikilocytosis (manual Slight Anisocytosis (manual) 1+ Tear Drop Cells Slight Ovalocytes Slight [place] Cells Slight Sodium (132-148) mmol/L Potassium (3.6-5.0) mmol/L Chloride (98-107) mmol/L Carbon Dioxide (21-33) mmol/L Anion Gap (10-20) BUN (7-21) mg/dL Creatinine (0.8-1.5) mg/dL Est GFR ( Amer) Est GFR (Non-Af Amer) Random Glucose (70-110) mg/dL Calcium (8.4-10.5) mg/dL Phosphorus (2.5-4.5) mg/dL Magnesium (1.7-2.2) mg/dL Total Bilirubin (0.2-1.3) mg/dL AST (17-59) U/L ALT (7-56) U/L Alkaline Phosphatase (38-126) U/L Total Protein (5.8-8.3) g/dL Albumin (3.0-4.8) g/dL Globulin gm/dL Albumin/Globulin Ratio (1.1-1.8) Crossmatch See Detail See Detail Laboratory Results - last 24 hr 04/30/17 05/02/17 05/05/17 18:47 18:00 06:50 WBC RBC Hgb Hct MCV MCH MCHC RDW Plt Count MPV Gran % Lymph % (Auto) [place] % (Auto) Eos % (Auto) Baso % (Auto) Gran # Lymph # [place] # Eos # Baso # Neutrophils % (Manual) 85 H Band Neutrophils % 5 H Lymphocytes % (Manual) 5 L Monocytes % (Manual) 5 Platelet Evaluation Low Large Platelets Present Polychromasia Slight Hypochromasia 1+ Poikilocytosis (manual Slight Anisocytosis (manual) 1+ Tear Drop Cells Slight Ovalocytes Slight [place] Cells Slight Sodium Potassium Chloride Carbon Dioxide Anion Gap BUN Creatinine Est GFR ( Amer) Est GFR (Non-Af Amer) Random Glucose Calcium Phosphorus Magnesium Total Bilirubin AST ALT Alkaline Phosphatase Total Protein Albumin Globulin Albumin/Globulin Ratio Crossmatch See Detail See Detail 05/05/17 05/06/17 05/06/17 07:50 05:50 05:50 WBC 16.0 H RBC 3.02 L Hgb 9.3 L Hct 28.7 L MCV 95.0 D MCH 30.8 MCHC 32.4 RDW 19.1 H Plt Count 85 L MPV 10.3 Gran % 85.9 H Lymph % (Auto) 6.7 L [place] % (Auto) 6.0 Eos % (Auto) 1.3 L Baso % (Auto) 0.1 Gran # 13.75 H Lymph # 1.1 L [place] # 1.0 H Eos # 0.2 Baso # 0.02 Neutrophils % (Manual) Band Neutrophils % Lymphocytes % (Manual) Monocytes % (Manual) Platelet Evaluation Large Platelets Polychromasia Hypochromasia Poikilocytosis (manual Anisocytosis (manual) Tear Drop Cells Ovalocytes [place] Cells Sodium 142 141 Potassium 4.1 4.0 Chloride 110 H 108 Carbon Dioxide 29 28 Anion Gap 7 L 9 L BUN 29 H 38 H Creatinine 0.8 1.0 Est GFR ( Amer) > 60 > 60 Est GFR (Non-Af Amer) > 60 > 60 Random Glucose 148 H 119 H Calcium 8.2 L 8.3 L Phosphorus 2.8 3.0 Magnesium 1.8 1.9 Total Bilirubin 1.8 H 1.9 H AST 29 44 ALT 35 46 Alkaline Phosphatase 95 163 H D Total Protein 4.7 L 4.6 L Albumin 2.5 L 2.3 L Globulin 2.2 2.3 Albumin/Globulin Ratio 1.1 1.0 L Crossmatch Fingerstick Blood Sugar Results: 46 Review of Systems - Review of Systems Review of Systems: 12-point review of systems cannot be ascertained at this time due to altered mental status. Assessment/Plan - Assessment and Plan (Free Text) Assessment: Patient is a 76yo male w/ PMHx of dementia, ETOH abuse, and HTN who was admitted to the ICU for evaluation and treatment of worsening SOB. He was found to have sepsis secondary to left sided empyema, s/p chest tube/thoracenthesis on 04/25 with immediate 1.5L of purulent fluid removed. Hospital course complicated with probable demand ischemia noted on 04/28. Thoracotomy w/ decortication on 05/01 complicated with post-op bleeding, returned to OR 05/02 with adequate hemostasis achieved. Patient coagulopathy improving s/p massive blood/blood product transfusion over the weekend. Patient is maintained on ventilation and off of pressor support. Plan: Neuro: - History of dementia, currently intubated and sedated with fentanyl and versed - more somnolent today- will decrease fentanyl and turn off versed - Continue sedation vacation daily Cardio: - septic shock, keep MAPs maintained > 65 off of pressor support - troponins trended, reviewed, and appreciated- possible demand ischemia - hemodynamically stable - ECHO reviewed and appreciated- dilated RA, dilated LA. LVEF wnl - Continue with Midodrine 10mg PO TID - Cardiology consulted- appreciate recommendations Pulm: - Large left-sided empyema s/p Thoracotomy 05/01, complicated with post-op bleeding, returned to OR on 05/02 with adequate hemostasis. - H/H reviewed, trended, and appreciated- improving and stable - CT output 600cc of serosang output form 7p to 7a - intubated for airway protection, will perform pressure support trials today with potential extubation - on vent, PRVC, 40% FiO2, 5 PEEP, RR18; abg reviewed and appreciated- pH normalized, pO2 decreased- will adjust vent settings accordingly - Continue Duonebs - Continue meropenem and Zyvox (Zyvox started on 04/30) - Cont aspiration precautions - CT Surgery consulted- appreciate recommendations GI: - stop tube feeds - Hyperbiliruinemia noted - Protonix for prophylaxis - Possible degree of liver dysfunction in the setting of ETOH abuse, coagulopathy noted Renal/Electrolytes: - Cont strict I&O - BUN creatinine trended, reviewed, and appreciated - monitor and replete as needed ID: - Sepsis improving, Left chest empyema likely source - WBC trending up, reviewed and appeciated - As above cont merrem/zyvox - ID Dr. Shore following- appreciate recommendations - Maintain euthermia Endo: - Maintain euglycemia blood sugars between 140-180 Heme: - Hemoglobin trended, reviewed, and appreciated- stable - Coagulopathy improved - SCDs Patient seen, case discussed with, and plan approved by attending physician, Dr. Santana. <Jonathan Santana - Last Filed: 05/06/17 10:41> CCU Objective - Vital Signs / Intake & Output Vital Signs (Last 4 hours): Vital Signs Temp Pulse Resp BP Pulse Ox 05/06/17 09:44 124/54 L 05/06/17 08:19 99.9 F H 106 H 99 05/06/17 08:10 100.0 F H 102 H 98 05/06/17 08:00 100.0 F H 103 H 18 112/50 L 99 05/06/17 07:50 99.9 F H 102 H 98 05/06/17 07:40 99.9 F H 103 H 98 05/06/17 07:30 99.9 F H 104 H 98 05/06/17 07:20 99.9 F H 103 H 98 05/06/17 07:10 99.9 F H 103 H 99 05/06/17 07:00 99.9 F H 103 H 97 05/06/17 06:50 99.9 F H 103 H 99 05/06/17 06:40 100.0 F H 104 H 99 Intake and Output (Last 8hrs): Intake & Output 05/05/17 05/06/17 05/06/17 22:59 06:59 14:59 Intake Total 1376 95 Output Total 30 900 Balance -30 476 95 Intake: IV 476 95 fentanyl 180 prbc 200 versed drip 96 Tube Feeding 600 Other 300 Output: Chest Tube Drainage 30 600 Left Mid-Axillary Chest 30 600 Urine 300 Urethral (Yu) 300 Other: # Bowel Movements 1 - Medications Active Medications: Active Medications Generic Name Dose Route Start Last Admin Trade Name Freq PRN Reason Stop Dose Admin Acetaminophen 650 mg 04/23/17 16:13 Tylenol 325mg Tab PO Q6H PRN Fever >100.4 F Albuterol/Ipratropium 3 ml 04/23/17 20:00 05/06/17 07:38 Duoneb 3 Mg/0.5 Mg (3 Ml) Ud IH 3 ml [id number] CEM Administration Albuterol/Ipratropium 3 ml 04/23/17 16:13 04/24/17 23:34 Duoneb 3 Mg/0.5 Mg (3 Ml) Ud IH 3 ml Q2H PRN Administration Shortness of Breath Albuterol/Ipratropium 3 ml 04/25/17 00:07 04/25/17 00:30 Duoneb 3 Mg/0.5 Mg (3 Ml) Ud IH 3 ml Q2H PRN Administration Shortness of Breath Chlorhexidine Gluconate 15 ml 04/26/17 18:00 05/06/17 09:46 Peridex PO 15 ml BID CEM Administration Folic Acid 1 mg 04/27/17 12:00 05/06/17 09:45 Folic Acid PO 1 mg DAILY CEM Administration Guaifenesin/Dextromethorphan 5 ml 04/24/17 19:29 Robitussin Dm PO Q6H PRN Cough Heparin Sodium (Porcine) 5,000 units 04/30/17 10:00 04/30/17 22:49 Heparin SC Not Given Q8 CEM Protocol Meropenem 1 gm/ Dextrose 100 mls @ 100 mls/hr 04/27/17 14:00 05/06/17 05:32 IVPB 05/06/17 14:01 100 mls/hr Q8 CEM Administration Protocol Midazolam 100 mg/100ml in NS 100 mg in 100 mls @ 1 mls/hr 05/02/17 07:34 07:48 Midazolam 100 Mg/100ml In Ns IV 0 mg/hr .Q24H PRN 0 mls/hr Agitation Titration Protocol 1 MG/HR Linezolid 600 mg in 300 mls @ 200 mls/hr 05/04/17 10:00 05/06/17 09:45 Zyvox 600mg/300ml D5w IVPB 05/11/17 10:01 200 mls/hr Q12 CEM Administration Protocol Fentanyl Citrate 1,000 mcg in 100 mls @ 15 mls/hr 05/05/17 01:11 05/06/17 07: 48 Fentanyl Citrate/Sodium Chloride 1 Mg/100 Ml IV 75 mcg/hr .Q6H40M PRN 7.5 mls/hr TITRATE PER MD ORDER Titration Protocol 150 MCG/HR Midazolam HCl 2 mg 04/29/17 09:28 05/03/17 18:20 Versed Inj IVP 2 mg Q2 PRN Administration Agitation Midodrine 10 mg 04/30/17 10:00 05/06/17 09:43 Proamatine PO 10 mg TID CEM Administration Multivitamins/Minerals 1 tab 04/26/17 12:00 05/06/17 08:45 Therapeutic-M Tab PO 1 tab 0800 CEM Administration Ondansetron HCl 4 mg 04/23/17 16:13 Zofran Inj IVP Q6H PRN Nausea/Vomiting Pantoprazole Sodium 40 mg 04/23/17 16:15 05/06/17 09:43 Protonix Inj IVP 40 mg DAILY CEM Administration Vitamin A 1 ea 05/04/17 08:03 05/05/17 07:52 Vitamin A & D Oint Ud Foilpak TOP 1 ea Q8 PRN Administration dry, cracked lips - Patient Studies Lab Studies: Microbiology Studies 04/24/17 17:20 Fungal Culture - Preliminary Pleural Fluid NO FUNGUS GROWTH IN 1 WEEK. Lab Studies 05/06/17 05/06/17 05/06/17 Range/Units 06:11 05:50 05:50 WBC 16.0 H (4.5-11.0) 10^3/ul RBC 3.02 L (3.5-6.1) 10^6/uL Hgb 9.3 L (14.0-18.0) g/dL Hct 28.7 L (42.0-52.0) % MCV 95.0 D (80.0-105.0) fl MCH 30.8 (25.0-35.0) pg MCHC 32.4 (31.0-37.0) g/dl RDW 19.1 H (11.5-14.5) % Plt Count 85 L (120.0-450.0) 10^3/uL MPV 10.3 (7.0-11.0) fl Gran % 85.9 H (50.0-68.0) % Lymph % (Auto) 6.7 L (22.0-35.0) % [place] % (Auto) 6.0 (1.0-6.0) % Eos % (Auto) 1.3 L (1.5-5.0) % Baso % (Auto) 0.1 (0.0-3.0) % Gran # 13.75 H (1.4-6.5) Lymph # 1.1 L (1.2-3.4) [place] # 1.0 H (0.1-0.6) Eos # 0.2 (0.0-0.7) Baso # 0.02 (0.0-2.0) K/mm3 pCO2 39 (35-45) mm/Hg pO2 79.0 L (80-100) mm/Hg HCO3 25.9 (21-28) mmol/L ABG pH 7.43 (7.35-7.45) ABG Total CO2 27.1 (22-28) mmol.L ABG O2 Saturation 98.3 H (95-98) % ABG Base Excess 1.5 (-2.0-3.0) mmol/L ABG Potassium 3.6 (3.6-5.2) mmol/L Glucose 118 H (75-110) mg/dl Lactate 1.1 (0.7-2.1) mmol/L FiO2 40.0 % Sodium 141.0 141 (132-148) mmol/L Potassium 4.0 (3.6-5.0) mmol/L Chloride 115.0 H 108 (95-110) mmol/L Carbon Dioxide 28 (21-33) mmol/L Anion Gap 9 L (10-20) BUN 38 H (7-21) mg/dL Creatinine 1.0 (0.8-1.5) mg/dL Est GFR ( Amer) > 60 Est GFR (Non-Af Amer) > 60 Random Glucose 119 H (70-110) mg/dL Calcium 8.3 L (8.4-10.5) mg/dL Phosphorus 3.0 (2.5-4.5) mg/dL Magnesium 1.9 (1.7-2.2) mg/dL Total Bilirubin 1.9 H (0.2-1.3) mg/dL AST 44 (17-59) U/L ALT 46 (7-56) U/L Alkaline Phosphatase 163 H D (38-126) U/L Total Protein 4.6 L (5.8-8.3) g/dL Albumin 2.3 L (3.0-4.8) g/dL Globulin 2.3 gm/dL Albumin/Globulin Ratio 1.0 L (1.1-1.8) Arterial Blood Potassium 3.6 (3.6-5.2) mmol/L Laboratory Results - last 24 hr 05/06/17 05/06/17 05/06/17 05:50 05:50 06:11 WBC 16.0 H RBC 3.02 L Hgb 9.3 L Hct 28.7 L MCV 95.0 D MCH 30.8 MCHC 32.4 RDW 19.1 H Plt Count 85 L MPV 10.3 Gran % 85.9 H Lymph % (Auto) 6.7 L [place] % (Auto) 6.0 Eos % (Auto) 1.3 L Baso % (Auto) 0.1 Gran # 13.75 H Lymph # 1.1 L [place] # 1.0 H Eos # 0.2 Baso # 0.02 pCO2 39 pO2 79.0 L HCO3 25.9 ABG pH 7.43 ABG Total CO2 27.1 ABG O2 Saturation 98.3 H ABG Base Excess 1.5 ABG Potassium 3.6 Glucose 118 H Lactate 1.1 FiO2 40.0 Sodium 141 141.0 Potassium 4.0 Chloride 108 115.0 H Carbon Dioxide 28 Anion Gap 9 L BUN 38 H Creatinine 1.0 Est GFR ( Amer) > 60 Est GFR (Non-Af Amer) > 60 Random Glucose 119 H Calcium 8.3 L Phosphorus 3.0 Magnesium 1.9 Total Bilirubin 1.9 H AST 44 ALT 46 Alkaline Phosphatase 163 H D Total Protein 4.6 L Albumin 2.3 L Globulin 2.3 Albumin/Globulin Ratio 1.0 L Arterial Blood Potassium 3.6 Assessment/Plan - Assessment and Plan (Free Text) Plan: Patient seen and examined, on rounds with resident, agree with note, with following additions/exceptions: Patient is 76yo male a/w septic shock, 2/2 PNA/Empyema, s/p thoracentesis and Chest tube drainage with large bore CT, s/p thoracotomy with CT surgery, post op course complicated with thoracic bleeding, retaken back to the OR, hemostasis achieved, currently afebrile, HD stable, comfortable, intubated, off pressors. CXR with improvement of L effusion. CT surgery following. On exam, intubated, off sedation, arousable, does not follow commands, daily CPAP trials in place, will attempt to possibly extubate . CT drainage with 630cc/24h, serosanginous. Septic Shock, resolved Empyema/Pleural Effusion s/p thoracotomy PNA Hypothyroidism Recommend - cont with ventilatory support, low tidal vol ventilation - daily CPAP trials, sedation vacation, attempt to extubate - antibiotics as per ID - follow up cultures, procalcitonin - Lasix IV x 1 - PICC has been replaced - follow up cardiology - monitor HH - monitor FS - follow up CT Surgery - MVT, Thiamine, Folic Acid - GI ppx - DVT ppx critical care time 40 minutes
[2017-05-06] MEDS: Multivitamin With Minerals Tab PO SCH (08:45)
[2017-05-06] MEDS: Linezolid 600 mg in D5W 300 ml 600 MG/300 ML BAG IVPB SCH ×2 (09:45→22:14)
[2017-05-06] MEDS: Chlorhexidine 0.12% Oral Sol 480 ml Bot PO SCH ×2 (09:46→18:36)
--- NOTE | 2017-05-06 09:54 | RAD ---
HISTORY: s/p Thoracotomy, Comparison COMPARISON: 05/05/2017 FINDINGS: LUNGS: A small left apical pneumothorax is now seen. Two chest tubes remain in place on the left side. The endotracheal and nasogastric tube are unchanged. No change in the infiltrate at the left lung base. PLEURA: No significant pleural effusion identified, no pneumothorax apparent. CARDIOVASCULAR: Normal. OSSEOUS STRUCTURES: No significant abnormalities. VISUALIZED UPPER ABDOMEN: Normal. OTHER FINDINGS: None. IMPRESSION: Small left apical pneumothorax. Chest tubes remain in place
--- NOTE | 2017-05-06 10:09 | CP.PCM.PN ---
Subjective - Date & Time of Evaluation Date of Evaluation: 05/06/17 Time of Evaluation: 09:40 - Subjective Subjective: Continues to be on the ventilator, developed low grade fevers this morning, still with chest tube in place Objective - Vital Signs/Intake and Output Vital Signs (last 24 hours): Temp Pulse Resp BP Pulse Ox 99 F 91 H 20 140/61 98 05/06/17 00:00 05/06/17 03:00 05/06/17 03:00 05/06/17 03:00 05/06/17 03:00 - Medications Medications: Current Medications Acetaminophen (Tylenol 325mg Tab) 650 mg PO Q6H PRN PRN Reason: Fever >100.4 F Albuterol/Ipratropium (Duoneb 3 Mg/0.5 Mg (3 Ml) Ud) 3 ml IH [id number] [facility] Last Admin: 05/05/17 20:05 Dose: 3 ml Albuterol/Ipratropium (Duoneb 3 Mg/0.5 Mg (3 Ml) Ud) 3 ml IH Q2H PRN PRN Reason: Shortness of Breath Last Admin: 04/24/17 23:34 Dose: 3 ml Albuterol/Ipratropium (Duoneb 3 Mg/0.5 Mg (3 Ml) Ud) 3 ml IH Q2H PRN PRN Reason: Shortness of Breath Last Admin: 04/25/17 00:30 Dose: 3 ml Chlorhexidine Gluconate (Peridex) 15 ml PO BID [facility] Last Admin: 05/05/17 18:34 Dose: 15 ml Folic Acid (Folic Acid) 1 mg PO DAILY [facility] Last Admin: 05/05/17 10:47 Dose: 1 mg Guaifenesin/Dextromethorphan (Robitussin Dm) 5 ml PO Q6H PRN PRN Reason: Cough Heparin Sodium (Porcine) (Heparin) 5,000 units SC Q8 [facility] PRN Reason: Protocol Last Admin: 04/30/17 22:49 Dose: Not Given Meropenem 1 gm/ Dextrose 100 mls @ 100 mls/hr IVPB Q8 [facility] PRN Reason: Protocol Stop: 05/06/17 14:01 Last Admin: 05/06/17 05:32 Dose: 100 mls/hr Midazolam 100 mg/100ml in NS (Midazolam 100 Mg/100ml In Ns) 100 mg in 100 mls @ 1 mls/hr IV .Q24H PRN; Protocol; 1 MG/HR PRN Reason: Agitation Last Admin: 05/05/17 04:39 Dose: 8 mg/hr, 8 mls/hr Linezolid (Zyvox 600mg/300ml D5w) 600 mg in 300 mls @ 200 mls/hr IVPB Q12 [facility] PRN Reason: Protocol Stop: 05/11/17 10:01 Last Admin: 05/05/17 21:41 Dose: 200 mls/hr Fentanyl Citrate (Fentanyl Citrate/Sodium Chloride 1 Mg/100 Ml) 1,000 mcg in 100 mls @ 15 mls/hr IV .Q6H40M PRN; Protocol; 150 MCG/HR PRN Reason: TITRATE PER MD ORDER Last Admin: 05/05/17 06:25 Dose: 150 mcg/hr, 15 mls/hr Midazolam HCl (Versed Inj) 2 mg IVP Q2 PRN PRN Reason: Agitation Last Admin: 05/03/17 18:20 Dose: 2 mg Midodrine (Proamatine) 10 mg PO TID [facility] Last Admin: 05/05/17 18:38 Dose: 10 mg Multivitamins/Minerals (Therapeutic-M Tab) 1 tab PO 0800 [facility] Last Admin: 05/05/17 10:48 Dose: Not Given Ondansetron HCl (Zofran Inj) 4 mg IVP Q6H PRN PRN Reason: Nausea/Vomiting Pantoprazole Sodium (Protonix Inj) 40 mg IVP DAILY [facility] Last Admin: 05/05/17 10:36 Dose: 40 mg Vitamin A (Vitamin A & D Oint Ud Foilpak) 1 ea TOP Q8 PRN PRN Reason: dry, cracked lips Last Admin: 05/05/17 07:52 Dose: 1 ea - Labs Labs: 05/05/17 06:50 05/05/17 07:50 PT 14.4 SECONDS (9.4-12.5) H 05/03/17 06:15 INR 1.30 (0.93-1.08) H 05/03/17 06:15 APTT 32.3 Seconds (25.1-36.5) 05/02/17 05:00 - Constitutional Appears: Other (intubated, sedated) - Head Exam Head Exam: NORMAL INSPECTION - ENT Exam Additional comments: ET tube in place - Respiratory Exam Respiratory Exam: Decreased Breath Sounds, Rales (scattered) Additional comments: left sided chest tube in place - Cardiovascular Exam Cardiovascular Exam: +S1, +S2 - GI/Abdominal Exam GI & Abdominal Exam: Soft. absent: Tenderness Assessment and Plan - Assessment and Plan (Free Text) Plan: Assessment Severe sepsis with ventilator dependent respiratory failure due to left sided severe community-acquired aspiration pneumonia with left sided pleural effusion S/P thoracentesis and now S/P chest tube placement POD #11, S/P VATS and decortication of possible empyema POD #5 - new onset fevers R/O new onset sepsis S/P acute drop in Hemoglobin, thrombocytopenia, clinically improving history of alcohol abuse hypothyroidism cataracts S/P left eye surgery HTN dementia Plan continue Zyvox day 3 since the platelets are starting to increase again; continue Merrem day 13 (we have d/c'ed Zithromax); pleural fluid cx are negative ; will continue monitor chest tube output - OR cultures are negative will repeat septic work up today (especially from the PICC line) to rule out new onset sepsis ICU team monitoring Hemoglobin and patient is also being monitored by CT surgery will continue to monitor clinically overall prognosis is poor
[2017-05-06] MEDS: Vitamins A & D Oint UD Foilpak TOP PRN (11:33)
[2017-05-06] MEDS: Fentanyl 1000mcg/100ml NS 1,000 MCG/100 ML BAG IV PRN (13:50)
[2017-05-06] MEDS: Magnesium Oxide 400 mg Tab UD PO SCH (17:07)
--- NOTE | 2017-05-06 17:22 | CP.PCM.PN ---
Subjective - Date & Time of Evaluation Date of Evaluation: 05/06/17 Time of Evaluation: 07:19 - Subjective Subjective: Cardiothoracic Surgery Progress Note for Dr. He. This patient was seen and examined this AM at bedside no acute events to report overnight. This AM the patient was GCS 3T on 150 Fent and 7 midazolam, no pressors. He was over breathing the bvent. Dressing drained, thoracotomy site draining purulent exudates. Objective - Vital Signs/Intake and Output Vital Signs (last 24 hours): Temp Pulse Resp BP Pulse Ox 99.3 F 104 H 18 126/43 L 100 05/06/17 14:37 05/06/17 14:37 05/06/17 10:00 05/06/17 12:00 05/06/17 14:37 Intake and Output: 05/06/17 05/06/17 06:59 18:59 Intake Total 1376 120 Output Total 900 Balance 476 120 - Medications Medications: Current Medications Acetaminophen (Tylenol 325mg Tab) 650 mg PO Q6H PRN PRN Reason: Fever >100.4 F Albuterol/Ipratropium (Duoneb 3 Mg/0.5 Mg (3 Ml) Ud) 3 ml IH [id number] [facility] Last Admin: 05/06/17 13:29 Dose: 3 ml Albuterol/Ipratropium (Duoneb 3 Mg/0.5 Mg (3 Ml) Ud) 3 ml IH Q2H PRN PRN Reason: Shortness of Breath Last Admin: 04/24/17 23:34 Dose: 3 ml Albuterol/Ipratropium (Duoneb 3 Mg/0.5 Mg (3 Ml) Ud) 3 ml IH Q2H PRN PRN Reason: Shortness of Breath Last Admin: 04/25/17 00:30 Dose: 3 ml Chlorhexidine Gluconate (Peridex) 15 ml PO BID [facility] Last Admin: 05/06/17 09:46 Dose: 15 ml Folic Acid (Folic Acid) 1 mg PO DAILY [facility] Last Admin: 05/06/17 09:45 Dose: 1 mg Guaifenesin/Dextromethorphan (Robitussin Dm) 5 ml PO Q6H PRN PRN Reason: Cough Heparin Sodium (Porcine) (Heparin) 5,000 units SC Q8 [facility] PRN Reason: Protocol Last Admin: 04/30/17 22:49 Dose: Not Given Midazolam 100 mg/100ml in NS (Midazolam 100 Mg/100ml In Ns) 100 mg in 100 mls @ 1 mls/hr IV .Q24H PRN; Protocol; 1 MG/HR PRN Reason: Agitation Last Titration: 05/06/17 07:48 Dose: 0 mg/hr, 0 mls/hr Linezolid (Zyvox 600mg/300ml D5w) 600 mg in 300 mls @ 200 mls/hr IVPB Q12 [facility] PRN Reason: Protocol Stop: 05/11/17 10:01 Last Admin: 05/06/17 09:45 Dose: 200 mls/hr Fentanyl Citrate (Fentanyl Citrate/Sodium Chloride 1 Mg/100 Ml) 1,000 mcg in 100 mls @ 15 mls/hr IV .Q6H40M PRN; Protocol; 150 MCG/HR PRN Reason: TITRATE PER MD ORDER Last Admin: 05/06/17 13:50 Dose: 25 mcg/hr, 2.5 mls/hr Magnesium Oxide (Mag-Ox) 400 mg PO DAILY [facility] Last Admin: 05/06/17 17:07 Dose: 400 mg Midazolam HCl (Versed Inj) 2 mg IVP Q2 PRN PRN Reason: Agitation Last Admin: 05/03/17 18:20 Dose: 2 mg Midodrine (Proamatine) 10 mg PO TID [facility] Last Admin: 05/06/17 17:07 Dose: 10 mg Multivitamins/Minerals (Therapeutic-M Tab) 1 tab PO 0800 [facility] Last Admin: 05/06/17 08:45 Dose: 1 tab Ondansetron HCl (Zofran Inj) 4 mg IVP Q6H PRN PRN Reason: Nausea/Vomiting Pantoprazole Sodium (Protonix Inj) 40 mg IVP DAILY [facility] Last Admin: 05/06/17 09:43 Dose: 40 mg Vitamin A (Vitamin A & D Oint Ud Foilpak) 1 ea TOP Q8 PRN PRN Reason: dry, cracked lips Last Admin: 05/06/17 11:33 Dose: 1 ea - Labs Labs: 05/06/17 05:50 05/06/17 05:50 PT 14.4 SECONDS (9.4-12.5) H 05/03/17 06:15 INR 1.30 (0.93-1.08) H 05/03/17 06:15 APTT 32.3 Seconds (25.1-36.5) 05/02/17 05:00 - Constitutional Appears: Other (Unresponsive ) - Head Exam Head Exam: ATRAUMATIC Additional comments: Neck echymosis - Eye Exam Eye Exam: PERRL - Respiratory Exam Respiratory Exam: NORMAL BREATHING PATTERN - Cardiovascular Exam Cardiovascular Exam: REGULAR RHYTHM - GI/Abdominal Exam GI & Abdominal Exam: Soft. absent: Guarding, Rigid, Tenderness - Neurological Exam Neurological Exam: Alert, Awake - Psychiatric Exam Psychiatric exam: Normal Affect - Skin Skin Exam: Dry, Intact Assessment and Plan - Assessment and Plan (Free Text) Assessment: 76M with ETOH who presented in respiratory distress due to a chronic sever empyema likely secondary to aspiration pneumonia. CT to suction Wean from vent when possible Local wound care OK to extubate when ICU team is ready Will discuss with Dr. Ying Penaloza PGY2
--- NOTE | 2017-05-06 22:20 | PN ---
DATE: SUBJECTIVE: The patient is 76 years old, who is on vent and I weaned off of his sedation. He was given TIVA trial. He is sleepy, but opens eyes on verbal commands. PHYSICAL EXAMINATION: VITAL SIGNS: Temperature 99, pulse , respirations 16, pulse ox 100%, and blood pressure 129/45. LUNGS: Bilateral fair airflow. He has chest tube in the left lower chest area. HEART: S1 and S2 audible. ABDOMEN: Soft. NEUROLOGIC: He is sedative, but arousable. LABORATORY EXAMINATION: WBC 16.0, hemoglobin 9.3, hematocrit 28.7, and platelets of 85. Chemistries: His sodium is 141, potassium 4.0, chloride 108, CO2 of 28, BUN 38, creatinine 1.0, blood sugar of 119, total bilirubin 1.9. Procalcitonin 0.62. ASSESSMENT: 1. Respiratory failure. 2. Status post open thoracotomy. 3. Coagulopathy. 4. Anemia, status post multiple blood transfusions. PLAN: The patient is being given TIVA trial; if he does not become tachypneic or tachycardic, he will be extubated later on. He is to follow up with his CBC and CMP in the a.m. He is on DVT prophylaxis. Tony Ochoa MD
[2017-05-07] MEDS: Albuterol-Ipratrop 3 mg / 0.5 (3 ml) UD IH SCH ×4 (01:07→20:18)
[2017-05-07 06:29] LABS: ARTERIAL BLOOD GAS HCO3 22.4 mmol/L (21-28); ARTERIAL BLOOD GAS O2 CAPACITY 15.9 mL/dl (16-24); ARTERIAL BLOOD GAS O2 CONTENT 15.4 ML/dl (15-23); ARTERIAL BLOOD GAS PH 7.44 (7.35-7.45); ARTERIAL BLOOD HGB O2 SAT 94.1 % (95.0-98.0); CARBOXYHEMOGLOBIN 1.7 % (0.5-1.5); HHB 3.3 % (0-5); METHEMOGLOBIN 0.9 % (0.0-3.0)
[2017-05-07 06:40] LABS: BASO # 0.02 K/mm3 (0.0-2.0); BASO % 0.1 % (0.0-3.0); EOS # 0.2 (0.0-0.7); EOS % 1.2 % (1.5-5.0); GRAN # 13.92 (1.4-6.5); GRAN % 86.9 % (50.0-68.0); HEMATOCRIT 30.8 % (42.0-52.0); LYMPH % 6.2 % (22.0-35.0); MEAN CELL VOLUME 95.7 fl (80.0-105.0); MEAN CORPUSCULAR HEMOGLOBIN 30.4 pg (25.0-35.0); MEAN CORPUSCULAR HGB CONC 31.8 g/dl (31.0-37.0); MEAN PLATELET VOLUME 10.8 fl (7.0-11.0); MONO # 0.9 (0.1-0.6); MONO % 5.6 % (1.0-6.0); RED CELL DISTRIBUTION WIDTH 19.3 % (11.5-14.5)
[2017-05-07 07:22] LABS: ALKALINE PHOSPHATASE 173 U/L (38-126); ALT/SGPT 41 U/L (7-56); AST/SGOT 40 U/L (17-59); BILIRUBIN,TOTAL 2.6 mg/dL (0.2-1.3); BLOOD UREA NITROGEN 44 mg/dL (7-21); CALCIUM 8.3 mg/dL (8.4-10.5); CARBON DIOXIDE 29 mmol/L (21-33); CHLORIDE 108 mmol/L (98-107); GFR AFRICAN-AMERICAN > 60; GLUCOSE,RANDOM 85 mg/dL (70-110); MAGNESIUM 1.8 mg/dL (1.7-2.2); PHOSPHOROUS 3.9 mg/dL (2.5-4.5); POTASSIUM 3.9 mmol/L (3.6-5.0); SODIUM 141 mmol/L (132-148); TOTAL PROTEIN 4.8 g/dL (5.8-8.3)
--- NOTE | 2017-05-07 08:05 | RAD ---
HISTORY: ett placement COMPARISON: 05/07/2017 at 04:04 hours and 05/06/2017 at 05:19 hours FINDINGS: LUNGS: Left inferior hemithoracic opacification- infiltrate/atelectasis blending left inferolateral pleural thickening is similar to both exams. Right infrahilar peribronchial thickening probable much smaller patchy infiltrate and/or atelectasis also present in currently more conspicuous PLEURA: The left apical pneumothorax on the 05/06/2017 at 05:19 hours study is not reproduced on the subsequent study for the current study CARDIOVASCULAR: Cardiomegaly unchanged OSSEOUS STRUCTURES: No significant abnormalities. VISUALIZED UPPER ABDOMEN: Normal. OTHER FINDINGS: Endotracheal tube tip -2 cm from the richard. NG tube tip beyond the inferior edge of the image in at least coursing along the stomach. Right sided PICC line tip superior vena cava-right atrial junction. Left chest tube tip mid left hemithorax 2nd left chest tube superolateral to this. No change in all the aforementioned tubes and lines. IMPRESSION: Compared to 05/06/2017 study at 5:19 the subsequent to chest x-rays suggests re-expansion of the small left apical pneumothorax. Left chest tube positions and other lines are satisfactory and similar in position. Left lung base infiltrate/atelectasis with blending left inferolateral pleural thickening is similar. Increase conspicuity of much smaller much more patchy right basal infiltrate noted.
--- NOTE | 2017-05-07 08:07 | RAD ---
COMPARISON: 05/07/2017 at 04:04 hours and 05/06/2017 at 05:19 hours FINDINGS: LUNGS: Left inferior hemithoracic opacification- infiltrate/atelectasis blending left inferolateral pleural thickening is similar to both exams. Right infrahilar peribronchial thickening probable much smaller patchy infiltrate and/or atelectasis also present in currently more conspicuous PLEURA: The left apical pneumothorax on the 05/06/2017 at 05:19 hours study and on the 05/07/2017 study at 0 2: 38 hours is not reproduced on the subsequent study for the current study CARDIOVASCULAR: Cardiomegaly unchanged OSSEOUS STRUCTURES: No significant abnormalities. VISUALIZED UPPER ABDOMEN: Normal. OTHER FINDINGS: Endotracheal tube tip -2 cm from the richard. NG tube tip beyond the inferior edge of the image in at least coursing along the stomach. Right sided PICC line tip superior vena cava-right atrial junction. Left chest tube tip mid left hemithorax 2nd left chest tube superolateral to this. No change in all the aforementioned tubes and lines. IMPRESSION: Compared to 05/06/2017 study at 5:19 and a subsequent N107/07/2016 at 04:04 hour and date 05/07/2017 study at 0238 hours the subsequent to chest x-rays suggests re-expansion of the small left apical pneumothorax. Left chest tube positions and other lines aresatisfactory. . Left lung base infiltrate/atelectasis with blending left inferolateral pleural thickening is similar. Increase conspicuity of much smaller much more patchy right basal infiltrate noted.
[2017-05-07] MEDS: Vancomycin 1gm in NS 250ml 1 GM/250 ML BAG IVPB SCH ×2 (08:11→19:30)
[2017-05-07] MEDS: Multivitamin With Minerals Tab PO SCH (08:11)
[2017-05-07] MEDS: Fentanyl 1000mcg/100ml NS 1,000 MCG/100 ML BAG IV PRN ×2 (08:19→18:32)
[2017-05-07] MEDS: Magnesium Oxide 400 mg Tab UD PO SCH (09:31)
--- NOTE | 2017-05-07 10:13 | CP.PCM.PN ---
Subjective - Date & Time of Evaluation Date of Evaluation: 05/07/17 Time of Evaluation: 09:30 - Subjective Subjective: Continues to be on the ventilator, no fevers overnight, easily arousable even though on sedation. No diarrhea. Objective - Vital Signs/Intake and Output Vital Signs (last 24 hours): Temp Pulse Resp BP Pulse Ox 98.6 F 103 H 30 H 126/43 L 100 05/07/17 06:02 05/07/17 06:02 05/07/17 03:20 05/06/17 12:00 05/07/17 06:02 Intake and Output: 05/07/17 05/07/17 06:59 18:59 Intake Total 690 Output Total 970 Balance -280 - Medications Medications: Current Medications Acetaminophen (Tylenol 325mg Tab) 650 mg PO Q6H PRN PRN Reason: Fever >100.4 F Albuterol/Ipratropium (Duoneb 3 Mg/0.5 Mg (3 Ml) Ud) 3 ml IH [id number] [facility] Last Admin: 05/07/17 01:07 Dose: 3 ml Albuterol/Ipratropium (Duoneb 3 Mg/0.5 Mg (3 Ml) Ud) 3 ml IH Q2H PRN PRN Reason: Shortness of Breath Last Admin: 04/24/17 23:34 Dose: 3 ml Albuterol/Ipratropium (Duoneb 3 Mg/0.5 Mg (3 Ml) Ud) 3 ml IH Q2H PRN PRN Reason: Shortness of Breath Last Admin: 04/25/17 00:30 Dose: 3 ml Chlorhexidine Gluconate (Peridex) 15 ml PO BID [facility] Last Admin: 05/06/17 18:36 Dose: 15 ml Folic Acid (Folic Acid) 1 mg PO DAILY [facility] Last Admin: 05/06/17 09:45 Dose: 1 mg Guaifenesin/Dextromethorphan (Robitussin Dm) 5 ml PO Q6H PRN PRN Reason: Cough Heparin Sodium (Porcine) (Heparin) 5,000 units SC Q8 [facility] PRN Reason: Protocol Last Admin: 04/30/17 22:49 Dose: Not Given Midazolam 100 mg/100ml in NS (Midazolam 100 Mg/100ml In Ns) 100 mg in 100 mls @ 1 mls/hr IV .Q24H PRN; Protocol; 1 MG/HR PRN Reason: Agitation Last Titration: 05/06/17 07:48 Dose: 0 mg/hr, 0 mls/hr Linezolid (Zyvox 600mg/300ml D5w) 600 mg in 300 mls @ 200 mls/hr IVPB Q12 [facility] PRN Reason: Protocol Stop: 05/11/17 10:01 Last Admin: 05/06/17 22:14 Dose: 200 mls/hr Fentanyl Citrate (Fentanyl Citrate/Sodium Chloride 1 Mg/100 Ml) 1,000 mcg in 100 mls @ 15 mls/hr IV .Q6H40M PRN; Protocol; 150 MCG/HR PRN Reason: TITRATE PER MD ORDER Last Admin: 05/06/17 13:50 Dose: 25 mcg/hr, 2.5 mls/hr Magnesium Oxide (Mag-Ox) 400 mg PO DAILY [facility] Last Admin: 05/06/17 17:07 Dose: 400 mg Midazolam HCl (Versed Inj) 2 mg IVP Q2 PRN PRN Reason: Agitation Last Admin: 05/03/17 18:20 Dose: 2 mg Midodrine (Proamatine) 10 mg PO TID [facility] Last Admin: 05/06/17 17:07 Dose: 10 mg Multivitamins/Minerals (Therapeutic-M Tab) 1 tab PO 0800 [facility] Last Admin: 05/06/17 08:45 Dose: 1 tab Ondansetron HCl (Zofran Inj) 4 mg IVP Q6H PRN PRN Reason: Nausea/Vomiting Pantoprazole Sodium (Protonix Inj) 40 mg IVP DAILY [facility] Last Admin: 05/06/17 09:43 Dose: 40 mg Vitamin A (Vitamin A & D Oint Ud Foilpak) 1 ea TOP Q8 PRN PRN Reason: dry, cracked lips Last Admin: 05/06/17 11:33 Dose: 1 ea - Labs Labs: 05/07/17 06:20 05/06/17 05:50 PT 14.4 SECONDS (9.4-12.5) H 05/03/17 06:15 INR 1.30 (0.93-1.08) H 05/03/17 06:15 APTT 32.3 Seconds (25.1-36.5) 05/02/17 05:00 - Constitutional Appears: Other (intubated and sedated but arousable) - Head Exam Head Exam: NORMAL INSPECTION - ENT Exam Additional comments: ET tube in place - Respiratory Exam Respiratory Exam: Decreased Breath Sounds (at the bases), Rales (scattered) Additional comments: left sided chest tube in place - Cardiovascular Exam Cardiovascular Exam: +S1, +S2 - GI/Abdominal Exam GI & Abdominal Exam: Soft. absent: Tenderness Assessment and Plan - Assessment and Plan (Free Text) Plan: Assessment Severe sepsis with ventilator dependent respiratory failure due to left sided severe community-acquired aspiration pneumonia with left sided pleural effusion S/P thoracentesis and now S/P chest tube placement POD #12, S/P VATS and decortication of possible empyema POD #6 - new onset fevers R/O new onset sepsis S/P acute drop in Hemoglobin, thrombocytopenia, clinically improving history of alcohol abuse hypothyroidism cataracts S/P left eye surgery HTN dementia Plan platelets decreased again today - will hold Zyvox (had 3 days) and switch to Vancomycin and will continue Merrem day 14 (we have d/c'ed Zithromax); pleural fluid cx are negative; will continue monitor chest tube output - OR cultures are negative follow up results of the repeat septic work up done yesterday (especially from the PICC line) to rule out new onset sepsis (had fever 2 days ago) ICU team monitoring Hemoglobin and patient is also being monitored by CT surgery will continue to monitor clinically overall prognosis is poor
[2017-05-07] MEDS: Chlorhexidine 0.12% Oral Sol 480 ml Bot PO SCH ×2 (10:15→17:25)
--- NOTE | 2017-05-07 10:41 | RAD ---
HISTORY: ET tube placement COMPARISON: 05/06/2017 at 5:19 a.m. FINDINGS: LUNGS: Left inferior patchy coalescing infiltrates with or without atelectasis. Blending left inferolateral pleural thickening. All of these findings are similar. Vague right basal equivocal patchy infiltrate versus crowding. Lung volumes are shallow PLEURA: The left apical pneumothorax is similar The 2 left chest tubes are similar position the most cephalad is below the left apical pleural reflection Small apparent right pleural effusion similar CARDIOVASCULAR: Cardiomegaly OSSEOUS STRUCTURES: No significant abnormalities. VISUALIZED UPPER ABDOMEN: Normal. OTHER FINDINGS: Left lateral chest wall dinesh NG tube tip in stomach. Right PICC line right caval atrial junction - IMPRESSION: Similar left apical pneumothorax and 2 left chest tube positions as above. Correlate clinically. Other tubes and lines -similar in appearance as above. Similar left basal coalescing infiltrates with or without atelectasis. Blending left inferolateral pleural thickening. Possible trace right basal infiltrate (versus crowding of vessels. Small right pleural effusion - grossly similar
--- NOTE | 2017-05-07 12:25 | CP.CCUPN ---
<Reece Abel - Last Filed: 05/07/17 15:03> CCU Subjective - Physician Review Events Since Last Encounter (Free Text): 05/07/17 12:[address] Araujo Pt seen and examined at bedside. No acute events overnight. Still intubated and sedated on vent, easily arousable. PRVC/40%/5 PEEP/18/400. CT to suction with ~ 160cc/12hrs of serosang fluid. Yu in place with 800cc/12hrs. No more fevers overnight. No acute distress. Family considering Trach CCU Objective - Vital Signs / Intake & Output Intake and Output (Last 8hrs): Intake & Output 05/06/17 05/07/17 05/07/17 22:59 06:59 14:59 Intake Total 515 690 100 Output Total 1250 970 Balance -735 -280 100 Weight 183 lb Intake: IV 415 340 100 ANTIBIOTIC 300 fentanyl 35 versed drip 80 340 Tube Feeding 100 350 Output: Chest Tube Drainage 170 Left Mid-Axillary Chest 170 Urine 1250 800 Urethral (Yu) 1250 800 Other: # Bowel Movements 2 0 - Physical Exam Head: Positive for: Atraumatic, Normocephalic Extroacular Muscles: Positive for: Other (senile archus) Conjunctiva: Positive for: Normal Ears: Positive for: Normal Mouth: Positive for: Moist Mucous Membranes, Other (OGT in place, ET tube in place with bite lock) Pharnyx: Positive for: Other (intubated). Negative for: ERYTHEMA, EXUDATE Nose (External): Positive for: Atraumatic Neck: Positive for: Trachea Midline. Negative for: Meningeal Signs Respiratory/Chest: Positive for: Good Air Exchange, Decreased Breath Sounds ( bilateral decreased breath sounds. ). Negative for: Respiratory Distress, Wheezes, Rales, Rhonchi Cardiovascular: Positive for: Normal S1, S2. Negative for: Murmurs, Rub, Gallop Abdomen: Positive for: Normal Bowel Sounds. Negative for: Tenderness, Distention, Rebound, Guarding Back: Negative for: CVA Tenderness Upper Extremity: Positive for: Normal Inspection. Negative for: Cyanosis, Edema , Tenderness Lower Extremity: Positive for: NORMAL PULSES. Negative for: Edema, CALF TENDERNESS, Deformity Neurological: Positive for: Other (intubated and sedated) Skin: Positive for: Warm, Dry Psychiatric: Positive for: Other (intubated and sedated) - Medications Active Medications: Active Medications Generic Name Dose Route Start Last Admin Trade Name Freq PRN Reason Stop Dose Admin Acetaminophen 650 mg 04/23/17 16:13 Tylenol 325mg Tab PO Q6H PRN Fever >100.4 F Albuterol/Ipratropium 3 ml 04/23/17 20:00 05/07/17 07:25 Duoneb 3 Mg/0.5 Mg (3 Ml) Ud IH 3 ml [id number] CEM Administration Albuterol/Ipratropium 3 ml 04/23/17 16:13 04/24/17 23:34 Duoneb 3 Mg/0.5 Mg (3 Ml) Ud IH 3 ml Q2H PRN Administration Shortness of Breath Albuterol/Ipratropium 3 ml 04/25/17 00:07 04/25/17 00:30 Duoneb 3 Mg/0.5 Mg (3 Ml) Ud IH 3 ml Q2H PRN Administration Shortness of Breath Chlorhexidine Gluconate 15 ml 04/26/17 18:00 05/06/17 18:36 Peridex PO 15 ml BID CEM Administration Folic Acid 1 mg 04/27/17 12:00 05/07/17 09:27 Folic Acid PO 1 mg DAILY CEM Administration Guaifenesin/Dextromethorphan 5 ml 04/24/17 19:29 Robitussin Dm PO Q6H PRN Cough Heparin Sodium (Porcine) 5,000 units 04/30/17 10:00 04/30/17 22:49 Heparin SC Not Given Q8 CEM Protocol Midazolam 100 mg/100ml in NS 100 mg in 100 mls @ 1 mls/hr 05/02/17 07:34 07:48 Midazolam 100 Mg/100ml In Ns IV 0 mg/hr .Q24H PRN 0 mls/hr Agitation Titration Protocol 1 MG/HR Fentanyl Citrate 1,000 mcg in 100 mls @ 15 mls/hr 05/05/17 01:11 05/07/17 08: 19 Fentanyl Citrate/Sodium Chloride 1 Mg/100 Ml IV 25 mcg/hr .Q6H40M PRN 2.5 mls/hr TITRATE PER MD ORDER Administration Protocol 150 MCG/HR Vancomycin HCl 1 gm in 250 mls @ 167 mls/hr 05/07/17 07:15 05/07/17 08:11 Vancomycin 1gm IVPB 167 mls/hr Q12H CEM Administration Protocol Meropenem 1 gm/ Dextrose 100 mls @ 100 mls/hr 05/07/17 14:00 IVPB 05/07/17 22:59 Q8 CEM Protocol Magnesium Oxide 400 mg 05/06/17 16:45 05/07/17 09:31 Mag-Ox PO 400 mg DAILY CEM Administration Midazolam HCl 2 mg 04/29/17 09:28 05/03/17 18:20 Versed Inj IVP 2 mg Q2 PRN Administration Agitation Midodrine 10 mg 04/30/17 10:00 05/07/17 09:27 Proamatine PO 10 mg TID CEM Administration Multivitamins/Minerals 1 tab 04/26/17 12:00 05/07/17 08:11 Therapeutic-M Tab PO 1 tab 0800 CEM Administration Ondansetron HCl 4 mg 04/23/17 16:13 Zofran Inj IVP Q6H PRN Nausea/Vomiting Pantoprazole Sodium 40 mg 04/23/17 16:15 05/07/17 09:28 Protonix Inj IVP 40 mg DAILY CEM Administration Vitamin A 1 ea 05/04/17 08:03 05/06/17 11:33 Vitamin A & D Oint Ud Foilpak TOP 1 ea Q8 PRN Administration dry, cracked lips - Patient Studies Lab Studies: Microbiology Studies 05/06/17 09:30 Blood Culture - Preliminary Blood-Venous NO GROWTH AFTER 24 HOURS 05/06/17 09:30 Blood Culture - Preliminary Blood-Venous NO GROWTH AFTER 24 HOURS 05/06/17 11:40 Urine Culture - Final Urine,Catheterized Yeast Species 05/06/17 11:40 Gram Stain - Final Sputum Induced Lab Studies 05/07/17 05/07/17 05/07/17 Range/Units 07:00 06:20 06:00 WBC 16.0 H (4.5-11.0) 10^3/ul RBC 3.22 L (3.5-6.1) 10^6/uL Hgb 9.8 L (14.0-18.0) g/dL Hct 30.8 L (42.0-52.0) % MCV 95.7 (80.0-105.0) fl MCH 30.4 (25.0-35.0) pg MCHC 31.8 (31.0-37.0) g/dl RDW 19.3 H (11.5-14.5) % Plt Count 62 L (120.0-450.0) 10^3/uL MPV 10.8 (7.0-11.0) fl Gran % 86.9 H (50.0-68.0) % Lymph % (Auto) 6.2 L (22.0-35.0) % [place] % (Auto) 5.6 (1.0-6.0) % Eos % (Auto) 1.2 L (1.5-5.0) % Baso % (Auto) 0.1 (0.0-3.0) % Gran # 13.92 H (1.4-6.5) Lymph # 1.0 L (1.2-3.4) [place] # 0.9 H (0.1-0.6) Eos # 0.2 (0.0-0.7) Baso # 0.02 (0.0-2.0) K/mm3 pCO2 33 L (35-45) mm/Hg pO2 64.0 L (80-100) mm/Hg HCO3 22.4 (21-28) mmol/L ABG pH 7.44 (7.35-7.45) ABG Total CO2 23.4 (22-28) mmol.L ABG O2 Saturation 96.6 (95-98) % ABG O2 Content 15.4 (15-23) ML/dl ABG Base Excess -1.2 (-2.0-3.0) mmol/L ABG Hemoglobin 11.6 L (11.7-17.4) g/dL ABG Carboxyhemoglobin 1.7 H (0.5-1.5) % POC ABG HHb (Measured) 3.3 (0-5) % ABG Methemoglobin 0.9 (0.0-3.0) % ABG O2 Capacity 15.9 L (16-24) mL/dl Hgb O2 Saturation 94.1 L (95.0-98.0) % FiO2 40.0 % Sodium 141 (132-148) mmol/L Potassium 3.9 (3.6-5.0) mmol/L Chloride 108 H (98-107) mmol/L Carbon Dioxide 29 (21-33) mmol/L Anion Gap 8 L (10-20) BUN 44 H (7-21) mg/dL Creatinine 1.0 (0.8-1.5) mg/dl Est GFR ( Amer) > 60 Est GFR (Non-Af Amer) > 60 Random Glucose 85 (70-110) mg/dL Calcium 8.3 L (8.4-10.5) mg/dL Phosphorus 3.9 (2.5-4.5) mg/dL Magnesium 1.8 (1.7-2.2) mg/dL Total Bilirubin 2.6 H (0.2-1.3) mg/dL AST 40 (17-59) U/L ALT 41 (7-56) U/L Alkaline Phosphatase 173 H (38-126) U/L Total Protein 4.8 L (5.8-8.3) g/dL Albumin 2.4 L (3.0-4.8) g/dL Globulin 2.4 gm/dL Albumin/Globulin Ratio 1.0 L (1.1-1.8) Procalcitonin (0.19-0.49) NG/ML 05/06/ Range/Units 11:45 WBC (4.5-11.0) 10^3/ul RBC (3.5-6.1) 10^6/uL Hgb (14.0-18.0) g/dL Hct (42.0-52.0) % MCV (80.0-105.0) fl MCH (25.0-35.0) pg MCHC (31.0-37.0) g/dl RDW (11.5-14.5) % Plt Count (120.0-450.0) 10^3/uL MPV (7.0-11.0) fl Gran % (50.0-68.0) % Lymph % (Auto) (22.0-35.0) % [place] % (Auto) (1.0-6.0) % Eos % (Auto) (1.5-5.0) % Baso % (Auto) (0.0-3.0) % Gran # (1.4-6.5) Lymph # (1.2-3.4) [place] # (0.1-0.6) Eos # (0.0-0.7) Baso # (0.0-2.0) K/mm3 pCO2 (35-45) mm/Hg pO2 (80-100) mm/Hg HCO3 (21-28) mmol/L ABG pH (7.35-7.45) ABG Total CO2 (22-28) mmol.L ABG O2 Saturation (95-98) % ABG O2 Content (15-23) ML/dl ABG Base Excess (-2.0-3.0) mmol/L ABG Hemoglobin (11.7-17.4) g/dL ABG Carboxyhemoglobin (0.5-1.5) % POC ABG HHb (Measured) (0-5) % ABG Methemoglobin (0.0-3.0) % ABG O2 Capacity (16-24) mL/dl Hgb O2 Saturation (95.0-98.0) % FiO2 % Sodium (132-148) mmol/L Potassium (3.6-5.0) mmol/L Chloride (98-107) mmol/L Carbon Dioxide (21-33) mmol/L Anion Gap (10-20) BUN (7-21) mg/dL Creatinine (0.8-1.5) mg/dl Est GFR ( Amer) Est GFR (Non-Af Amer) Random Glucose (70-110) mg/dL Calcium (8.4-10.5) mg/dL Phosphorus (2.5-4.5) mg/dL Magnesium (1.7-2.2) mg/dL Total Bilirubin (0.2-1.3) mg/dL AST (17-59) U/L ALT (7-56) U/L Alkaline Phosphatase (38-126) U/L Total Protein (5.8-8.3) g/dL Albumin (3.0-4.8) g/dL Globulin gm/dL Albumin/Globulin Ratio (1.1-1.8) Procalcitonin 0.62 H (0.19-0.49) NG/ML Laboratory Results - last 24 hr 05/06/17 05/07/17 05/07/17 11:45 06:00 06:20 WBC 16.0 H RBC 3.22 L Hgb 9.8 L Hct 30.8 L MCV 95.7 MCH 30.4 MCHC 31.8 RDW 19.3 H Plt Count 62 L MPV 10.8 Gran % 86.9 H Lymph % (Auto) 6.2 L [place] % (Auto) 5.6 Eos % (Auto) 1.2 L Baso % (Auto) 0.1 Gran # 13.92 H Lymph # 1.0 L [place] # 0.9 H Eos # 0.2 Baso # 0.02 pCO2 33 L pO2 64.0 L HCO3 22.4 ABG pH 7.44 ABG Total CO2 23.4 ABG O2 Saturation 96.6 ABG O2 Content 15.4 ABG Base Excess -1.2 ABG Hemoglobin 11.6 L ABG Carboxyhemoglobin 1.7 H POC ABG HHb (Measured) 3.3 ABG Methemoglobin 0.9 ABG O2 Capacity 15.9 L Hgb O2 Saturation 94.1 L FiO2 40.0 Sodium Potassium Chloride Carbon Dioxide Anion Gap BUN Creatinine Est GFR ( Amer) Est GFR (Non-Af Amer) Random Glucose Calcium Phosphorus Magnesium Total Bilirubin AST ALT Alkaline Phosphatase Total Protein Albumin Globulin Albumin/Globulin Ratio Procalcitonin 0.62 H 05/07/17 07:00 WBC RBC Hgb Hct MCV MCH MCHC RDW Plt Count MPV Gran % Lymph % (Auto) [place] % (Auto) Eos % (Auto) Baso % (Auto) Gran # Lymph # [place] # Eos # Baso # pCO2 pO2 HCO3 ABG pH ABG Total CO2 ABG O2 Saturation ABG O2 Content ABG Base Excess ABG Hemoglobin ABG Carboxyhemoglobin POC ABG HHb (Measured) ABG Methemoglobin ABG O2 Capacity Hgb O2 Saturation FiO2 Sodium 141 Potassium 3.9 Chloride 108 H Carbon Dioxide 29 Anion Gap 8 L BUN 44 H Creatinine 1.0 Est GFR ( Amer) > 60 Est GFR (Non-Af Amer) > 60 Random Glucose 85 Calcium 8.3 L Phosphorus 3.9 Magnesium 1.8 Total Bilirubin 2.6 H AST 40 ALT 41 Alkaline Phosphatase 173 H Total Protein 4.8 L Albumin 2.4 L Globulin 2.4 Albumin/Globulin Ratio 1.0 L Procalcitonin Fingerstick Blood Sugar Results: 46 Assessment/Plan - Assessment and Plan (Free Text) Assessment: 76yo M w/ PMHx of dementia, ETOH abuse, and HTN who was admitted to the ICU for sepsis secondary to left sided empyema, s/p chest tube/thoracenthesis on 04/25 with immediate 1.5L of purulent fluid removed. Hospital course complicated with probable demand ischemia noted on 04/28. Thoracotomy w/ decortication on 05/01 complicated with post-op bleeding, returned to OR 05/02 with adequate hemostasis achieved. Patient coagulopathy improving s/p massive blood/blood product transfusion. Patient is maintained on ventilation and off of pressor support. Family now considering Trach for patient comfort. Neuro: Hx of dementia, currently intubated and sedated with fentanyl and versed Continue sedation vacation daily Cardio: septic shock improved, keep MAPs maintained > 65 off of pressor support troponins trended, reviewed, and appreciated- possible demand ischemia currently hemodynamically stable ECHO - dilated RA, dilated LA. LVEF wnl Continue with Midodrine 10mg PO TID Cardiology following- appreciate recs Pulm: Large left-sided empyema s/p Thoracotomy 05/01, complicated with post-op bleeding , returned to OR on 05/02 with adequate hemostasis. H/H stable CT output 160cc/12hrs of serosang output, cont to suction intubated for airway protection, failed pressure support trials yesterday. Now [facility] Family consider Trach for patient comfort. CT surgery on board, plan to OR for Trach tomorrow (05/08) afternoon Continue on vent, PRVC, 40% FiO2, 5 PEEP, RR18 Continue Duonebs Continue meropenem and vanc. Zyvox stopped today due worsening thrombocytopenia. (Patient received 3 days of Zyvox total) aspiration precautions GI: Hold tube feeds @ midnight for OR on 05/08 Hyperbiliruinemia noted Protonix Possible degree of liver dysfunction in the setting of ETOH abuse, coagulopathy noted Renal/Electrolytes: Cont strict I&O BUN creatinine trended, reviewed, and appreciated monitor and replete as needed ID: Sepsis improving, Left chest empyema likely source Leukocytosis, afebrile Cont merrem/vanc ID, Dr. Shore following- appreciate recommendations f/u repeat Cxs due febrile 2 days ago Maintain euthermia Endo: Maintain euglycemia blood sugars between 140-180 Heme: Hb Stable Coagulopathy noted, will have 2 FFP on hold for procedure tomorrow. Platelets 62 today. Hold Zyvox Transfuse 1U Platelets. Will have 1U Platelets on hold for procedure tomorrow Repeat CBC and coags in the AM PPx: Protonix SCDs Patient seen and examined, case discussed with Dr. Van Abel PGY1 <Emerson Araujo - Last Filed: 05/07/17 16:14> CCU Objective - Vital Signs / Intake & Output Vital Signs (Last 4 hours): Vital Signs Temp Pulse Resp BP 05/07/17 15:40 97.9 F 95 H 19 112/49 L 05/07/17 15:23 97.9 F 93 H 18 110/50 L 05/07/17 14:00 91 H Intake and Output (Last 8hrs): Intake & Output 05/07/17 05/07/17 05/07/17 06:59 14:59 22:59 Intake Total 690 100 0 Output Total 970 Balance -280 100 0 Weight 183 lb 190 lb Intake: IV 340 100 versed drip 340 Tube Feeding 350 Blood Product 0 Apheresis Plts Acda Lr 0 Irr Unit [id number] Output: Chest Tube Drainage 170 Left Mid-Axillary Chest 170 Urine 800 Urethral (Yu) 800 Other: # Bowel Movements 0 - Medications Active Medications: Active Medications Generic Name Dose Route Start Last Admin Trade Name Freq PRN Reason Stop Dose Admin Acetaminophen 650 mg 04/23/17 16:13 Tylenol 325mg Tab PO Q6H PRN Fever >100.4 F Albuterol/Ipratropium 3 ml 04/23/17 20:00 05/07/17 14:24 Duoneb 3 Mg/0.5 Mg (3 Ml) Ud IH 3 ml [id number] CEM Administration Albuterol/Ipratropium 3 ml 04/23/17 16:13 04/24/17 23:34 Duoneb 3 Mg/0.5 Mg (3 Ml) Ud IH 3 ml Q2H PRN Administration Shortness of Breath Albuterol/Ipratropium 3 ml 04/25/17 00:07 04/25/17 00:30 Duoneb 3 Mg/0.5 Mg (3 Ml) Ud IH 3 ml Q2H PRN Administration Shortness of Breath Chlorhexidine Gluconate 15 ml 04/26/17 18:00 05/06/17 18:36 Peridex PO 15 ml BID CEM Administration Folic Acid 1 mg 04/27/17 12:00 05/07/17 09:27 Folic Acid PO 1 mg DAILY CEM Administration Guaifenesin/Dextromethorphan 5 ml 04/24/17 19:29 Robitussin Dm PO Q6H PRN Cough Heparin Sodium (Porcine) 5,000 units 04/30/17 10:00 04/30/17 22:49 Heparin SC Not Given Q8 CEM Protocol Midazolam 100 mg/100ml in NS 100 mg in 100 mls @ 1 mls/hr 05/02/17 07:34 07:48 Midazolam 100 Mg/100ml In Ns IV 0 mg/hr .Q24H PRN 0 mls/hr Agitation Titration Protocol 1 MG/HR Fentanyl Citrate 1,000 mcg in 100 mls @ 15 mls/hr 05/05/17 01:11 05/07/17 08: 19 Fentanyl Citrate/Sodium Chloride 1 Mg/100 Ml IV 25 mcg/hr .Q6H40M PRN 2.5 mls/hr TITRATE PER MD ORDER Administration Protocol 150 MCG/HR Vancomycin HCl 1 gm in 250 mls @ 167 mls/hr 05/07/17 07:15 05/07/17 08:11 Vancomycin 1gm IVPB 167 mls/hr Q12H CEM Administration Protocol Meropenem 1 gm/ Dextrose 100 mls @ 100 mls/hr 05/07/17 14:00 05/07/17 13:38 IVPB 05/07/17 22:59 100 mls/hr Q8 CEM Administration Protocol Magnesium Oxide 400 mg 05/06/17 16:45 05/07/17 09:31 Mag-Ox PO 400 mg DAILY CEM Administration Midazolam HCl 2 mg 04/29/17 09:28 05/03/17 18:20 Versed Inj IVP 2 mg Q2 PRN Administration Agitation Midodrine 10 mg 04/30/17 10:00 05/07/17 09:27 Proamatine PO 10 mg TID CEM Administration Multivitamins/Minerals 1 tab 04/26/17 12:00 05/07/17 08:11 Therapeutic-M Tab PO 1 tab 0800 CEM Administration Ondansetron HCl 4 mg 04/23/17 16:13 Zofran Inj IVP Q6H PRN Nausea/Vomiting Pantoprazole Sodium 40 mg 04/23/17 16:15 05/07/17 09:28 Protonix Inj IVP 40 mg DAILY CEM Administration Vitamin A 1 ea 05/04/17 08:03 05/06/17 11:33 Vitamin A & D Oint Ud Foilpak TOP 1 ea Q8 PRN Administration dry, cracked lips - Patient Studies Lab Studies: Microbiology Studies 05/06/17 09:30 Blood Culture - Preliminary Blood-Venous NO GROWTH AFTER 24 HOURS 05/06/17 09:30 Blood Culture - Preliminary Blood-Venous NO GROWTH AFTER 24 HOURS 05/06/17 11:40 Urine Culture - Final Urine,Catheterized Yeast Species 05/06/17 11:40 Gram Stain - Final Sputum Induced Lab Studies 05/07/17 05/07/17 05/07/17 Range/Units 12:55 12:55 07:00 WBC (4.5-11.0) 10^3/ul RBC (3.5-6.1) 10^6/uL Hgb (14.0-18.0) g/dL Hct (42.0-52.0) % MCV (80.0-105.0) fl MCH (25.0-35.0) pg MCHC (31.0-37.0) g/dl RDW (11.5-14.5) % Plt Count (120.0-450.0) 10^3/uL MPV (7.0-11.0) fl Gran % (50.0-68.0) % Lymph % (Auto) (22.0-35.0) % [place] % (Auto) (1.0-6.0) % Eos % (Auto) (1.5-5.0) % Baso % (Auto) (0.0-3.0) % Gran # (1.4-6.5) Lymph # (1.2-3.4) [place] # (0.1-0.6) Eos # (0.0-0.7) Baso # (0.0-2.0) K/mm3 PT 17.2 H (9.4-12.5) SECONDS INR 1.55 H (0.93-1.08) APTT 34.6 (25.1-36.5) Seconds pCO2 (35-45) mm/Hg pO2 (80-100) mm/Hg HCO3 (21-28) mmol/L ABG pH (7.35-7.45) ABG Total CO2 (22-28) mmol.L ABG O2 Saturation (95-98) % ABG O2 Content (15-23) ML/dl ABG Base Excess (-2.0-3.0) mmol/L ABG Hemoglobin (11.7-17.4) g/dL ABG Carboxyhemoglobin (0.5-1.5) % POC ABG HHb (Measured) (0-5) % ABG Methemoglobin (0.0-3.0) % ABG O2 Capacity (16-24) mL/dl Hgb O2 Saturation (95.0-98.0) % FiO2 % Sodium 141 (132-148) mmol/L Potassium 3.9 (3.6-5.0) mmol/L Chloride 108 H (98-107) mmol/L Carbon Dioxide 29 (21-33) mmol/L Anion Gap 8 L (10-20) BUN 44 H (7-21) mg/dL Creatinine 1.0 (0.8-1.5) mg/dl Est GFR ( Amer) > 60 Est GFR (Non-Af Amer) > 60 Random Glucose 85 (70-110) mg/dL Calcium 8.3 L (8.4-10.5) mg/dL Phosphorus 3.9 (2.5-4.5) mg/dL Magnesium 1.8 (1.7-2.2) mg/dL Total Bilirubin 2.6 H (0.2-1.3) mg/dL AST 40 (17-59) U/L ALT 41 (7-56) U/L Alkaline Phosphatase 173 H (38-126) U/L Total Protein 4.8 L (5.8-8.3) g/dL Albumin 2.4 L (3.0-4.8) g/dL Globulin 2.4 gm/dL Albumin/Globulin Ratio 1.0 L (1.1-1.8) Procalcitonin (0.19-0.49) NG/ML Blood Type O POSITIVE Antibody Screen Negative BBK History Checked Patient has bt 05/07/17 05/07/17 05/06/17 Range/Units 06:20 06:00 11:45 WBC 16.0 H (4.5-11.0) 10^3/ul RBC 3.22 L (3.5-6.1) 10^6/uL Hgb 9.8 L (14.0-18.0) g/dL Hct 30.8 L (42.0-52.0) % MCV 95.7 (80.0-105.0) fl MCH 30.4 (25.0-35.0) pg MCHC 31.8 (31.0-37.0) g/dl RDW 19.3 H (11.5-14.5) % Plt Count 62 L (120.0-450.0) 10^3/uL MPV 10.8 (7.0-11.0) fl Gran % 86.9 H (50.0-68.0) % Lymph % (Auto) 6.2 L (22.0-35.0) % [place] % (Auto) 5.6 (1.0-6.0) % Eos % (Auto) 1.2 L (1.5-5.0) % Baso % (Auto) 0.1 (0.0-3.0) % Gran # 13.92 H (1.4-6.5) Lymph # 1.0 L (1.2-3.4) [place] # 0.9 H (0.1-0.6) Eos # 0.2 (0.0-0.7) Baso # 0.02 (0.0-2.0) K/mm3 PT (9.4-12.5) SECONDS INR (0.93-1.08) APTT (25.1-36.5) Seconds pCO2 33 L (35-45) mm/Hg pO2 64.0 L (80-100) mm/Hg HCO3 22.4 (21-28) mmol/L ABG pH 7.44 (7.35-7.45) ABG Total CO2 23.4 (22-28) mmol.L ABG O2 Saturation 96.6 (95-98) % ABG O2 Content 15.4 (15-23) ML/dl ABG Base Excess -1.2 (-2.0-3.0) mmol/L ABG Hemoglobin 11.6 L (11.7-17.4) g/dL ABG Carboxyhemoglobin 1.7 H (0.5-1.5) % POC ABG HHb (Measured) 3.3 (0-5) % ABG Methemoglobin 0.9 (0.0-3.0) % ABG O2 Capacity 15.9 L (16-24) mL/dl Hgb O2 Saturation 94.1 L (95.0-98.0) % FiO2 40.0 % Sodium (132-148) mmol/L Potassium (3.6-5.0) mmol/L Chloride (98-107) mmol/L Carbon Dioxide (21-33) mmol/L Anion Gap (10-20) BUN (7-21) mg/dL Creatinine (0.8-1.5) mg/dl Est GFR ( Amer) Est GFR (Non-Af Amer) Random Glucose (70-110) mg/dL Calcium (8.4-10.5) mg/dL Phosphorus (2.5-4.5) mg/dL Magnesium (1.7-2.2) mg/dL Total Bilirubin (0.2-1.3) mg/dL AST (17-59) U/L ALT (7-56) U/L Alkaline Phosphatase (38-126) U/L Total Protein (5.8-8.3) g/dL Albumin (3.0-4.8) g/dL Globulin gm/dL Albumin/Globulin Ratio (1.1-1.8) Procalcitonin 0.62 H (0.19-0.49) NG/ML Blood Type Antibody Screen BBK History Checked Laboratory Results - last 24 hr 05/06/17 05/07/17 05/07/17 11:45 06:00 06:20 WBC 16.0 H RBC 3.22 L Hgb 9.8 L Hct 30.8 L MCV 95.7 MCH 30.4 MCHC 31.8 RDW 19.3 H Plt Count 62 L MPV 10.8 Gran % 86.9 H Lymph % (Auto) 6.2 L [place] % (Auto) 5.6 Eos % (Auto) 1.2 L Baso % (Auto) 0.1 Gran # 13.92 H Lymph # 1.0 L [place] # 0.9 H Eos # 0.2 Baso # 0.02 PT INR APTT pCO2 33 L pO2 64.0 L HCO3 22.4 ABG pH 7.44 ABG Total CO2 23.4 ABG O2 Saturation 96.6 ABG O2 Content 15.4 ABG Base Excess -1.2 ABG Hemoglobin 11.6 L ABG Carboxyhemoglobin 1.7 H POC ABG HHb (Measured) 3.3 ABG Methemoglobin 0.9 ABG O2 Capacity 15.9 L Hgb O2 Saturation 94.1 L FiO2 40.0 Sodium Potassium Chloride Carbon Dioxide Anion Gap BUN Creatinine Est GFR ( Amer) Est GFR (Non-Af Amer) Random Glucose Calcium Phosphorus Magnesium Total Bilirubin AST ALT Alkaline Phosphatase Total Protein Albumin Globulin Albumin/Globulin Ratio Procalcitonin 0.62 H Blood Type Antibody Screen BBK History Checked 05/07/17 05/07/17 05/07/17 07:00 12:55 12:55 WBC RBC Hgb Hct MCV MCH MCHC RDW Plt Count MPV Gran % Lymph % (Auto) [place] % (Auto) Eos % (Auto) Baso % (Auto) Gran # Lymph # [place] # Eos # Baso # PT 17.2 H INR 1.55 H APTT 34.6 pCO2 pO2 HCO3 ABG pH ABG Total CO2 ABG O2 Saturation ABG O2 Content ABG Base Excess ABG Hemoglobin ABG Carboxyhemoglobin POC ABG HHb (Measured) ABG Methemoglobin ABG O2 Capacity Hgb O2 Saturation FiO2 Sodium 141 Potassium 3.9 Chloride 108 H Carbon Dioxide 29 Anion Gap 8 L BUN 44 H Creatinine 1.0 Est GFR ( Amer) > 60 Est GFR (Non-Af Amer) > 60 Random Glucose 85 Calcium 8.3 L Phosphorus 3.9 Magnesium 1.8 Total Bilirubin 2.6 H AST 40 ALT 41 Alkaline Phosphatase 173 H Total Protein 4.8 L Albumin 2.4 L Globulin 2.4 Albumin/Globulin Ratio 1.0 L Procalcitonin Blood Type O POSITIVE Antibody Screen Negative BBK History Checked Patient has bt Attending/Attestation - Attestation I have personally seen and examined this patient.: Yes I have fully participated in the care of the patient.: Yes I have reviewed all pertinent clinical information: Yes Notes (Text): 05/07/17 16:12 76 yo recovering from sepsis due to CAP/empyema, s/p decoritcation complicated by bleeding, now contained. Hemodynamically stable, but likely suffering from toxic metabolic syndrome. VDRF. Will proceed with trach. abx, dvt/gi prophylaxis , HOB>35, protective lung vent strategy, conservative fluid management ccm time 40 min
--- NOTE | 2017-05-07 13:12 | CP.PCM.PN ---
Subjective - Date & Time of Evaluation Date of Evaluation: 05/07/17 Time of Evaluation: 13:07 - Subjective Subjective: Thoracic Surgery - DR. He Pt S&E. DENA. PT remains intubated, sedated on fentanyl/versed, on Vent w/ 5 peep 40 fio2. Withdraws to painful stimuli. Left CT x2 in place to wall suction w/ 400cc serosanguinous drainage/24hrs. Dressing changed. Discussed with family consideration for tracheostomy. Objective - Vital Signs/Intake and Output Vital Signs (last 24 hours): Temp Pulse Resp BP Pulse Ox 98.6 F 103 H 30 H 126/43 L 100 05/07/17 06:02 05/07/17 06:02 05/07/17 03:20 05/06/17 12:00 05/07/17 06:02 Intake and Output: 05/07/17 05/07/17 06:59 18:59 Intake Total 690 100 Output Total 970 Balance -280 100 - Medications Medications: Current Medications Acetaminophen (Tylenol 325mg Tab) 650 mg PO Q6H PRN PRN Reason: Fever >100.4 F Albuterol/Ipratropium (Duoneb 3 Mg/0.5 Mg (3 Ml) Ud) 3 ml IH [id number] [facility] Last Admin: 05/07/17 07:25 Dose: 3 ml Albuterol/Ipratropium (Duoneb 3 Mg/0.5 Mg (3 Ml) Ud) 3 ml IH Q2H PRN PRN Reason: Shortness of Breath Last Admin: 04/24/17 23:34 Dose: 3 ml Albuterol/Ipratropium (Duoneb 3 Mg/0.5 Mg (3 Ml) Ud) 3 ml IH Q2H PRN PRN Reason: Shortness of Breath Last Admin: 04/25/17 00:30 Dose: 3 ml Chlorhexidine Gluconate (Peridex) 15 ml PO BID [facility] Last Admin: 05/06/17 18:36 Dose: 15 ml Folic Acid (Folic Acid) 1 mg PO DAILY [facility] Last Admin: 05/07/17 09:27 Dose: 1 mg Guaifenesin/Dextromethorphan (Robitussin Dm) 5 ml PO Q6H PRN PRN Reason: Cough Heparin Sodium (Porcine) (Heparin) 5,000 units SC Q8 [facility] PRN Reason: Protocol Last Admin: 04/30/17 22:49 Dose: Not Given Midazolam 100 mg/100ml in NS (Midazolam 100 Mg/100ml In Ns) 100 mg in 100 mls @ 1 mls/hr IV .Q24H PRN; Protocol; 1 MG/HR PRN Reason: Agitation Last Titration: 05/06/17 07:48 Dose: 0 mg/hr, 0 mls/hr Fentanyl Citrate (Fentanyl Citrate/Sodium Chloride 1 Mg/100 Ml) 1,000 mcg in 100 mls @ 15 mls/hr IV .Q6H40M PRN; Protocol; 150 MCG/HR PRN Reason: TITRATE PER MD ORDER Last Admin: 05/07/17 08:19 Dose: 25 mcg/hr, 2.5 mls/hr Vancomycin HCl (Vancomycin 1gm) 1 gm in 250 mls @ 167 mls/hr IVPB Q12H [facility] PRN Reason: Protocol Last Admin: 05/07/17 08:11 Dose: 167 mls/hr Meropenem 1 gm/ Dextrose 100 mls @ 100 mls/hr IVPB Q8 [facility] PRN Reason: Protocol Stop: 05/07/17 22:59 Magnesium Oxide (Mag-Ox) 400 mg PO DAILY [facility] Last Admin: 05/07/17 09:31 Dose: 400 mg Midazolam HCl (Versed Inj) 2 mg IVP Q2 PRN PRN Reason: Agitation Last Admin: 05/03/17 18:20 Dose: 2 mg Midodrine (Proamatine) 10 mg PO TID [facility] Last Admin: 05/07/17 09:27 Dose: 10 mg Multivitamins/Minerals (Therapeutic-M Tab) 1 tab PO 0800 [facility] Last Admin: 05/07/17 08:11 Dose: 1 tab Ondansetron HCl (Zofran Inj) 4 mg IVP Q6H PRN PRN Reason: Nausea/Vomiting Pantoprazole Sodium (Protonix Inj) 40 mg IVP DAILY [facility] Last Admin: 05/07/17 09:28 Dose: 40 mg Vitamin A (Vitamin A & D Oint Ud Foilpak) 1 ea TOP Q8 PRN PRN Reason: dry, cracked lips Last Admin: 05/06/17 11:33 Dose: 1 ea - Labs Labs: 05/07/17 06:20 05/07/17 07:00 PT 14.4 SECONDS (9.4-12.5) H 05/03/17 06:15 INR 1.30 (0.93-1.08) H 05/03/17 06:15 APTT 32.3 Seconds (25.1-36.5) 05/02/17 05:00 - Constitutional Appears: No Acute Distress - Head Exam Head Exam: ATRAUMATIC, NORMAL INSPECTION, NORMOCEPHALIC - Neck Exam Additional comments: edema and ecchymosis - Respiratory Exam Respiratory Exam: absent: Respiratory Distress Additional comments: on vent - Neurological Exam Neurological Exam: absent: Alert, Awake Assessment and Plan - Assessment and Plan (Free Text) Assessment: 76M w/ Empyema, Fibrothorax, S/P Left Thoracotomy w/ Decortication POD 6 and take-back with clot evacuation POD 5 -Continue CTs to low cont. suction, monitor output, dressing changes daily -Pt has been unable to be weaned off vent and surgery requested for tracheostomy -Discussed with family and will plan for Tracheostomy Tomorrow 05/07 if family agreeable -Continue to attempt to wean from vent -Repeat Coags and Platelets on hold for OR -Hold tube feeds after midnight tuan Yee PGY3
[2017-05-07 13:13] LABS: INR 1.55 (0.93-1.08); PARTIAL THROMBOPLASTIN TIME 34.6 Seconds (25.1-36.5)
[2017-05-07] MEDS: Meropenem 1 GM in Dextrose 5% In Water 100 ML IVPB SCH ×2 (13:38→21:19)
[2017-05-08] MEDS: Albuterol-Ipratrop 3 mg / 0.5 (3 ml) UD IH SCH ×4 (01:33→19:58)
[2017-05-08] MEDS: Fentanyl 1000mcg/100ml NS 1,000 MCG/100 ML BAG IV PRN ×2 (05:50→14:45)
[2017-05-08 07:14] LABS: BASO # 0.01 K/mm3 (0.0-2.0); BASO % 0.1 % (0.0-3.0); EOS # 0.2 (0.0-0.7); EOS % 1.3 % (1.5-5.0); GRAN # 11.26 (1.4-6.5); GRAN % 82.3 % (50.0-68.0); HEMATOCRIT 26.6 % (42.0-52.0); LYMPH # 1.4 (1.2-3.4); LYMPH % 10.2 % (22.0-35.0); MEAN CELL VOLUME 95.3 fl (80.0-105.0); MEAN CORPUSCULAR HEMOGLOBIN 30.5 pg (25.0-35.0); MEAN PLATELET VOLUME 10.6 fl (7.0-11.0); MONO # 0.8 (0.1-0.6); MONO % 6.1 % (1.0-6.0); RED CELL DISTRIBUTION WIDTH 19.3 % (11.5-14.5); WHITE BLOOD COUNT 13.7 10^3/ul (4.5-11.0)
[2017-05-08 07:22] LABS: INR 1.48 (0.93-1.08); PARTIAL THROMBOPLASTIN TIME 34.9 Seconds (25.1-36.5)
[2017-05-08 07:38] LABS: ALKALINE PHOSPHATASE 200 U/L (38-126); ALT/SGPT 46 U/L (7-56); AST/SGOT 42 U/L (17-59); BILIRUBIN,TOTAL 2.2 mg/dL (0.2-1.3); BLOOD UREA NITROGEN 46 mg/dL (7-21); CALCIUM 8.3 mg/dL (8.4-10.5); CARBON DIOXIDE 27 mmol/L (21-33); CHLORIDE 108 mmol/L (98-107); GFR AFRICAN-AMERICAN > 60; GLUCOSE,RANDOM 93 mg/dL (70-110); MAGNESIUM 1.9 mg/dL (1.7-2.2); PHOSPHOROUS 3.6 mg/dL (2.5-4.5); POTASSIUM 3.7 mmol/L (3.6-5.0); SODIUM 141 mmol/L (132-148); TOTAL PROTEIN 4.6 g/dL (5.8-8.3)
[2017-05-08] MEDS: Vancomycin 1gm in NS 250ml 1 GM/250 ML BAG IVPB SCH ×2 (07:52→20:00)
[2017-05-08 08:37] LABS: ARTERIAL BLOOD GAS HCO3 27.2 mmol/L (21-28); ARTERIAL BLOOD GAS PH 7.44 (7.35-7.45)
--- NOTE | 2017-05-08 08:59 | RAD ---
HISTORY: interval changes COMPARISON: 05/07/2017. FINDINGS: There is stable position of endotracheal tube, nasogastric tube and left chest tube. The right PICC line terminates at the cavoatrial junction. LUNGS: The right lung is clear. There is persistent opacity in the left lower lobe. There is pulmonary venous congestion. PLEURA: Small left pleural effusion. No pneumothorax. CARDIOVASCULAR: Normal. OSSEOUS STRUCTURES: There is redemonstration of a postsurgical changes of thoracotomy in the lower rib. VISUALIZED UPPER ABDOMEN: Normal. OTHER FINDINGS: None. IMPRESSION: Little interval change in left lower lobe airspace disease and small left pleural effusion. Persistent cardiomegaly and pulmonary venous congestion.
--- NOTE | 2017-05-08 09:10 | CP.CCUPN ---
<Reece Abel - Last Filed: 05/08/17 10:20> CCU Subjective - Physician Review Events Since Last Encounter (Free Text): 05/08/17 09:[address] Santana Pt seen and examined at bedside. Patient more awake and agitated this morning. Patient family at bedside. On Fentanyl drip. A-line not working appropriately this morning. CT - 120cc/12 hrs of serosang fluid. UOP 500/12hrs. Tube feeding was held at midnight last night in anticipation for OR today. CCU Objective - Vital Signs / Intake & Output Vital Signs (Last 4 hours): Vital Signs Temp Pulse Resp Pulse Ox 05/08/17 07:51 18 98 05/08/17 06:26 100.6 F H 106 H 100 05/08/17 06:14 100.6 F H 109 H 100 05/08/17 06:10 100.9 F H 116 H 97 05/08/17 06:00 101.1 F H 112 H 100 05/08/17 05:50 100.9 F H 104 H 100 05/08/17 05:40 100.9 F H 105 H 100 05/08/17 05:30 100.9 F H 105 H 100 05/08/17 05:20 100.9 F H 106 H 100 05/08/17 05:10 100.9 F H 105 H 100 Intake and Output (Last 8hrs): Intake & Output 05/07/17 05/08/17 05/08/17 22:59 06:59 14:59 Intake Total 1138 1050 Output Total 520 700 Balance 618 350 Intake: IV 560 850 ANTIBIOTIC 350 fentanyl 110 versed drip 0 750 Oral 200 Blood Product 578 Apheresis Plts Acda Lr 289 Irr Unit [id number] Output: Chest Tube Drainage 70 200 Left Mid-Axillary Chest 70 200 Urine 450 500 Urethral (Yu) 450 500 Other: # Bowel Movements 2 2 - Physical Exam Head: Positive for: Atraumatic, Normocephalic Extroacular Muscles: Positive for: Other (senile archus) Conjunctiva: Positive for: Normal Ears: Positive for: Normal Mouth: Positive for: Moist Mucous Membranes, Other (OGT in place, ET tube in place with bite lock. Right side of the lip with dried blood from ETT trauma. ) Pharnyx: Positive for: Other (intubated). Negative for: ERYTHEMA, EXUDATE Nose (External): Positive for: Atraumatic Neck: Positive for: Trachea Midline. Negative for: Meningeal Signs Respiratory/Chest: Positive for: Good Air Exchange, Decreased Breath Sounds ( bilateral decreased breath sounds. ), Other (left sided chest tube site dressing , clean, dry and intact). Negative for: Respiratory Distress, Wheezes, Rales, Rhonchi Cardiovascular: Positive for: Normal S1, S2. Negative for: Murmurs, Rub, Gallop Abdomen: Positive for: Normal Bowel Sounds. Negative for: Tenderness, Distention, Rebound, Guarding Back: Negative for: CVA Tenderness Upper Extremity: Positive for: Normal Inspection. Negative for: Cyanosis, Edema , Tenderness Lower Extremity: Positive for: NORMAL PULSES. Negative for: Edema, CALF TENDERNESS, Deformity Neurological: Positive for: Other (intubated and sedated) Skin: Positive for: Warm, Dry Psychiatric: Positive for: Other (intubated and sedated) - Medications Active Medications: Active Medications Generic Name Dose Route Start Last Admin Trade Name Freq PRN Reason Stop Dose Admin Acetaminophen 650 mg 04/23/17 16:13 Tylenol 325mg Tab PO Q6H PRN Fever >100.4 F Albuterol/Ipratropium 3 ml 04/23/17 20:00 05/08/17 07:36 Duoneb 3 Mg/0.5 Mg (3 Ml) Ud IH 3 ml [id number] CEM Administration Albuterol/Ipratropium 3 ml 04/23/17 16:13 04/24/17 23:34 Duoneb 3 Mg/0.5 Mg (3 Ml) Ud IH 3 ml Q2H PRN Administration Shortness of Breath Albuterol/Ipratropium 3 ml 04/25/17 00:07 04/25/17 00:30 Duoneb 3 Mg/0.5 Mg (3 Ml) Ud IH 3 ml Q2H PRN Administration Shortness of Breath Chlorhexidine Gluconate 15 ml 04/26/17 18:00 05/07/17 17:25 Peridex PO 15 ml BID CEM Administration Folic Acid 1 mg 04/27/17 12:00 05/07/17 09:27 Folic Acid PO 1 mg DAILY CEM Administration Guaifenesin/Dextromethorphan 5 ml 04/24/17 19:29 Robitussin Dm PO Q6H PRN Cough Heparin Sodium (Porcine) 5,000 units 04/30/17 10:00 04/30/17 22:49 Heparin SC Not Given Q8 [facility] Protocol Midazolam 100 mg/100ml in NS 100 mg in 100 mls @ 1 mls/hr 05/02/17 07:34 07:48 Midazolam 100 Mg/100ml In Ns IV 0 mg/hr .Q24H PRN 0 mls/hr Agitation Titration Protocol 1 MG/HR Fentanyl Citrate 1,000 mcg in 100 mls @ 15 mls/hr 05/05/17 01:11 05/08/17 05: 50 Fentanyl Citrate/Sodium Chloride 1 Mg/100 Ml IV 25 mcg/hr .Q6H40M PRN 2.5 mls/hr TITRATE PER MD ORDER Administration Protocol 150 MCG/HR Vancomycin HCl 1 gm in 250 mls @ 167 mls/hr 05/07/17 07:15 05/08/17 07:52 Vancomycin 1gm IVPB 167 mls/hr Q12H CEM Administration Protocol Meropenem 1 gm/ Dextrose 100 mls @ 100 mls/hr 05/08/17 06:45 IVPB 05/15/17 06:46 Q8 CEM Protocol Micafungin Sodium 100 mg/ 100 mls @ 100 mls/hr 05/08/17 10:00 Sodium Chloride IV 05/15/17 10:01 DAILY [facility] Protocol Magnesium Oxide 400 mg 05/06/17 16:45 05/07/17 09:31 Mag-Ox PO 400 mg DAILY CEM Administration Midazolam HCl 2 mg 04/29/17 09:28 05/03/17 18:20 Versed Inj IVP 2 mg Q2 PRN Administration Agitation Midodrine 10 mg 04/30/17 10:00 05/07/17 17:26 Proamatine PO 10 mg TID CEM Administration Multivitamins/Minerals 1 tab 04/26/17 12:00 05/07/17 08:11 Therapeutic-M Tab PO 1 tab 0800 CEM Administration Ondansetron HCl 4 mg 04/23/17 16:13 Zofran Inj IVP Q6H PRN Nausea/Vomiting Pantoprazole Sodium 40 mg 04/23/17 16:15 05/07/17 09:28 Protonix Inj IVP 40 mg DAILY CEM Administration Vitamin A 1 ea 05/04/17 08:03 05/06/17 11:33 Vitamin A & D Oint Ud Foilpak TOP 1 ea Q8 PRN Administration dry, cracked lips - Patient Studies Lab Studies: Microbiology Studies 05/06/17 09:30 Blood Culture - Preliminary Blood-Venous NO GROWTH AFTER 24 HOURS 05/06/17 09:30 Blood Culture - Preliminary Blood-Venous NO GROWTH AFTER 24 HOURS 05/06/17 11:40 Urine Culture - Final Urine,Catheterized Yeast Species Lab Studies 05/08/17 05/08/17 05/08/17 Range/Units 08:18 06:50 06:50 WBC (4.5-11.0) 10^3/ul RBC (3.5-6.1) 10^6/uL Hgb (14.0-18.0) g/dL Hct (42.0-52.0) % MCV (80.0-105.0) fl MCH (25.0-35.0) pg MCHC (31.0-37.0) g/dl RDW (11.5-14.5) % Plt Count (120.0-450.0) 10^3/uL MPV (7.0-11.0) fl Gran % (50.0-68.0) % Lymph % (Auto) (22.0-35.0) % Bremer % (Auto) (1.0-6.0) % Eos % (Auto) (1.5-5.0) % Baso % (Auto) (0.0-3.0) % Gran # (1.4-6.5) Lymph # (1.2-3.4) Bremer # (0.1-0.6) Eos # (0.0-0.7) Baso # (0.0-2.0) K/mm3 PT 16.4 H (9.4-12.5) SECONDS INR 1.48 H (0.93-1.08) APTT 34.9 (25.1-36.5) Seconds pCO2 40 (35-45) mm/Hg pO2 126.0 H (80-100) mm/Hg HCO3 27.2 (21-28) mmol/L ABG pH 7.44 (7.35-7.45) ABG Total CO2 28.4 H (22-28) mmol.L ABG O2 Saturation 99.5 H (95-98) % ABG Base Excess 2.8 (-2.0-3.0) mmol/L ABG Potassium 3.4 L (3.6-5.2) mmol/L Glucose 89 (75-110) mg/dl Lactate 1.7 (0.7-2.1) mmol/L FiO2 40 % Sodium 143.0 141 (132-148) mmol/L Potassium 3.7 (3.6-5.0) mmol/L Chloride 113.0 H 108 H (98-107) mmol/L Carbon Dioxide 27 (21-33) mmol/L Anion Gap 11 (10-20) BUN 46 H (7-21) mg/dL Creatinine 1.1 (0.8-1.5) mg/dl Est GFR ( Amer) > 60 Est GFR (Non-Af Amer) > 60 POC Glucose (mg/dL) (65-110) mg/dL Random Glucose 93 (70-110) mg/dL Calcium 8.3 L (8.4-10.5) mg/dL Phosphorus 3.6 (2.5-4.5) mg/dL Magnesium 1.9 (1.7-2.2) mg/dL Total Bilirubin 2.2 H (0.2-1.3) mg/dL AST 42 (17-59) U/L ALT 46 (7-56) U/L Alkaline Phosphatase 200 H (38-126) U/L Total Protein 4.6 L (5.8-8.3) g/dL Albumin 2.2 L (3.0-4.8) g/dL Globulin 2.4 gm/dL Albumin/Globulin Ratio 1.0 L (1.1-1.8) Arterial Blood Potassium 3.4 L (3.6-5.2) mmol/L Blood Type Antibody Screen BBK History Checked 05/08/17 05/08/17 05/07/17 Range/Units 06:50 04:20 23:51 WBC 13.7 H (4.5-11.0) 10^3/ul RBC 2.79 L (3.5-6.1) 10^6/uL Hgb 8.5 L (14.0-18.0) g/dL Hct 26.6 L (42.0-52.0) % MCV 95.3 (80.0-105.0) fl MCH 30.5 (25.0-35.0) pg MCHC 32.0 (31.0-37.0) g/dl RDW 19.3 H (11.5-14.5) % Plt Count 78 L (120.0-450.0) 10^3/uL MPV 10.6 (7.0-11.0) fl Gran % 82.3 H (50.0-68.0) % Lymph % (Auto) 10.2 L (22.0-35.0) % Bremer % (Auto) 6.1 H (1.0-6.0) % Eos % (Auto) 1.3 L (1.5-5.0) % Baso % (Auto) 0.1 (0.0-3.0) % Gran # 11.26 H (1.4-6.5) Lymph # 1.4 (1.2-3.4) Bremer # 0.8 H (0.1-0.6) Eos # 0.2 (0.0-0.7) Baso # 0.01 (0.0-2.0) K/mm3 PT (9.4-12.5) SECONDS INR (0.93-1.08) APTT (25.1-36.5) Seconds pCO2 (35-45) mm/Hg pO2 (80-100) mm/Hg HCO3 (21-28) mmol/L ABG pH (7.35-7.45) ABG Total CO2 (22-28) mmol.L ABG O2 Saturation (95-98) % ABG Base Excess (-2.0-3.0) mmol/L ABG Potassium (3.6-5.2) mmol/L Glucose (75-110) mg/dl Lactate (0.7-2.1) mmol/L FiO2 % Sodium (132-148) mmol/L Potassium (3.6-5.0) mmol/L Chloride (98-107) mmol/L Carbon Dioxide (21-33) mmol/L Anion Gap (10-20) BUN (7-21) mg/dL Creatinine (0.8-1.5) mg/dl Est GFR ( Amer) Est GFR (Non-Af Amer) POC Glucose (mg/dL) 92 115 H (65-110) mg/dL Random Glucose (70-110) mg/dL Calcium (8.4-10.5) mg/dL Phosphorus (2.5-4.5) mg/dL Magnesium (1.7-2.2) mg/dL Total Bilirubin (0.2-1.3) mg/dL AST (17-59) U/L ALT (7-56) U/L Alkaline Phosphatase (38-126) U/L Total Protein (5.8-8.3) g/dL Albumin (3.0-4.8) g/dL Globulin gm/dL Albumin/Globulin Ratio (1.1-1.8) Arterial Blood Potassium (3.6-5.2) mmol/L Blood Type Antibody Screen BBK History Checked 05/07/17 05/07/17 05/07/17 Range/Units 19:42 12:55 12:55 WBC (4.5-11.0) 10^3/ul RBC (3.5-6.1) 10^6/uL Hgb (14.0-18.0) g/dL Hct (42.0-52.0) % MCV (80.0-105.0) fl MCH (25.0-35.0) pg MCHC (31.0-37.0) g/dl RDW (11.5-14.5) % Plt Count (120.0-450.0) 10^3/uL MPV (7.0-11.0) fl Gran % (50.0-68.0) % Lymph % (Auto) (22.0-35.0) % Bremer % (Auto) (1.0-6.0) % Eos % (Auto) (1.5-5.0) % Baso % (Auto) (0.0-3.0) % Gran # (1.4-6.5) Lymph # (1.2-3.4) Bremer # (0.1-0.6) Eos # (0.0-0.7) Baso # (0.0-2.0) K/mm3 PT 17.2 H (9.4-12.5) SECONDS INR 1.55 H (0.93-1.08) APTT 34.6 (25.1-36.5) Seconds pCO2 (35-45) mm/Hg pO2 (80-100) mm/Hg HCO3 (21-28) mmol/L ABG pH (7.35-7.45) ABG Total CO2 (22-28) mmol.L ABG O2 Saturation (95-98) % ABG Base Excess (-2.0-3.0) mmol/L ABG Potassium (3.6-5.2) mmol/L Glucose (75-110) mg/dl Lactate (0.7-2.1) mmol/L FiO2 % Sodium (132-148) mmol/L Potassium (3.6-5.0) mmol/L Chloride (98-107) mmol/L Carbon Dioxide (21-33) mmol/L Anion Gap (10-20) BUN (7-21) mg/dL Creatinine (0.8-1.5) mg/dl Est GFR ( Amer) Est GFR (Non-Af Amer) POC Glucose (mg/dL) 108 (65-110) mg/dL Random Glucose (70-110) mg/dL Calcium (8.4-10.5) mg/dL Phosphorus (2.5-4.5) mg/dL Magnesium (1.7-2.2) mg/dL Total Bilirubin (0.2-1.3) mg/dL AST (17-59) U/L ALT (7-56) U/L Alkaline Phosphatase (38-126) U/L Total Protein (5.8-8.3) g/dL Albumin (3.0-4.8) g/dL Globulin gm/dL Albumin/Globulin Ratio (1.1-1.8) Arterial Blood Potassium (3.6-5.2) mmol/L Blood Type O POSITIVE Antibody Screen Negative BBK History Checked Patient has bt Laboratory Results - last 24 hr 05/07/17 05/07/17 05/07/17 12:55 12:55 19:42 WBC RBC Hgb Hct MCV MCH MCHC RDW Plt Count MPV Gran % Lymph % (Auto) Bremer % (Auto) Eos % (Auto) Baso % (Auto) Gran # Lymph # Bremer # Eos # Baso # PT 17.2 H INR 1.55 H APTT 34.6 pCO2 pO2 HCO3 ABG pH ABG Total CO2 ABG O2 Saturation ABG Base Excess ABG Potassium Glucose Lactate FiO2 Sodium Potassium Chloride Carbon Dioxide Anion Gap BUN Creatinine Est GFR ( Amer) Est GFR (Non-Af Amer) POC Glucose (mg/dL) 108 Random Glucose Calcium Phosphorus Magnesium Total Bilirubin AST ALT Alkaline Phosphatase Total Protein Albumin Globulin Albumin/Globulin Ratio Arterial Blood Potassium Blood Type O POSITIVE Antibody Screen Negative BBK History Checked Patient has bt 05/07/17 05/08/17 05/08/17 23:51 04:20 06:50 WBC 13.7 H RBC 2.79 L Hgb 8.5 L Hct 26.6 L MCV 95.3 MCH 30.5 MCHC 32.0 RDW 19.3 H Plt Count 78 L MPV 10.6 Gran % 82.3 H Lymph % (Auto) 10.2 L Bremer % (Auto) 6.1 H Eos % (Auto) 1.3 L Baso % (Auto) 0.1 Gran # 11.26 H Lymph # 1.4 Bremer # 0.8 H Eos # 0.2 Baso # 0.01 PT INR APTT pCO2 pO2 HCO3 ABG pH ABG Total CO2 ABG O2 Saturation ABG Base Excess ABG Potassium Glucose Lactate FiO2 Sodium Potassium Chloride Carbon Dioxide Anion Gap BUN Creatinine Est GFR ( Amer) Est GFR (Non-Af Amer) POC Glucose (mg/dL) 115 H 92 Random Glucose Calcium Phosphorus Magnesium Total Bilirubin AST ALT Alkaline Phosphatase Total Protein Albumin Globulin Albumin/Globulin Ratio Arterial Blood Potassium Blood Type Antibody Screen BBK History Checked 05/08/17 05/08/17 05/08/17 06:50 06:50 08:18 WBC RBC Hgb Hct MCV MCH MCHC RDW Plt Count MPV Gran % Lymph % (Auto) Bremer % (Auto) Eos % (Auto) Baso % (Auto) Gran # Lymph # Bremer # Eos # Baso # PT 16.4 H INR 1.48 H APTT 34.9 pCO2 40 pO2 126.0 H HCO3 27.2 ABG pH 7.44 ABG Total CO2 28.4 H ABG O2 Saturation 99.5 H ABG Base Excess 2.8 ABG Potassium 3.4 L Glucose 89 Lactate 1.7 FiO2 40 Sodium 141 143.0 Potassium 3.7 Chloride 108 H 113.0 H Carbon Dioxide 27 Anion Gap 11 BUN 46 H Creatinine 1.1 Est GFR ( Amer) > 60 Est GFR (Non-Af Amer) > 60 POC Glucose (mg/dL) Random Glucose 93 Calcium 8.3 L Phosphorus 3.6 Magnesium 1.9 Total Bilirubin 2.2 H AST 42 ALT 46 Alkaline Phosphatase 200 H Total Protein 4.6 L Albumin 2.2 L Globulin 2.4 Albumin/Globulin Ratio 1.0 L Arterial Blood Potassium 3.4 L Blood Type Antibody Screen BBK History Checked Fingerstick Blood Sugar Results: 115 Assessment/Plan - Assessment and Plan (Free Text) Assessment: 76yo M w/ PMHx of dementia, ETOH abuse, and HTN who was admitted to the ICU for sepsis secondary to left sided empyema, s/p chest tube/thoracenthesis on 04/25 with immediate 1.5L of purulent fluid removed. Hospital course complicated with probable demand ischemia noted on 04/28. Thoracotomy w/ decortication on 05/01 complicated with post-op bleeding, returned to OR 05/02 with adequate hemostasis achieved. Patient coagulopathy improving s/p massive blood/blood product transfusion. Patient is maintained on ventilation and off of pressor support. To OR for Trach today. Neuro: Hx of dementia, currently intubated and sedated with fentanyl. Patient more awake and agitated today. Will titrate sedation appropriately. Add versed drip. Continue sedation vacation daily Cardio: septic shock improved, keep MAPs maintained > 65 off of pressor support troponins trended, reviewed, and appreciated- possible demand ischemia currently hemodynamically stable ECHO - dilated RA, dilated LA. LVEF wnl Continue with Midodrine 10mg PO TID Cardiology following- appreciate recs Pulm: Large left-sided empyema s/p Thoracotomy 05/01, complicated with post-op bleeding , returned to OR on 05/02 with adequate hemostasis. H/H stable CT output 120cc/12hrs of serosang output, cont to suction intubated for airway protection, failed pressure support trials. Now [facility] Family would like Trach for patient comfort. CT surgery on board, plan to OR for Trach today (05/08) afternoon Continue on vent, PRVC, 40% FiO2, 5 PEEP, RR18 Continue Duonebs Continue micafungin, meropenem and vanc. aspiration precautions GI: Hold tube feeds for now Hyperbiliruinemia noted Protonix Possible degree of liver dysfunction in the setting of ETOH abuse, coagulopathy noted Renal/Electrolytes: Cont strict I&O BUN creatinine trended, reviewed, and appreciated monitor and replete as needed ID: Sepsis improving, Left chest empyema likely source Leukocytosis. Tmax of 101.1F Cont merrem/vanc. Micafungin started. ID, Dr. Shore following- appreciate recommendations f/u repeat Cxs Urine Cxs - Yeast growth Maintain euthermia Endo: Maintain euglycemia blood sugars between 140-180 Heme: Hb Stable Coagulopathy noted. Platelets 78 today. S/p 1U platelets transfused overnight. Will give another unit Platelets today. Will transfuse 1U FFP today, and hold 1U FFP for procedure Repeat labs in the AM PPx: Protonix SCDs Patient seen and examined, case discussed with Dr. Esther Abel PGY1 <Jonathan Santana - Last Filed: 05/08/17 11:49> CCU Objective - Vital Signs / Intake & Output Vital Signs (Last 4 hours): Vital Signs Temp Pulse Resp BP Pulse Ox 05/08/17 09:50 99.9 F H 97 H 99 05/08/17 09:40 100.0 F H 110 H 99 05/08/17 09:30 100.0 F H 109 H 99 05/08/17 09:28 100.2 F H 111 H 123/61 99 05/08/17 09:20 100.2 F H 111 H 99 05/08/17 09:10 100.2 F H 110 H 99 05/08/17 09:00 100.2 F H 108 H 99 05/08/17 08:57 100.2 F H 106 H 05/08/17 08:50 100.2 F H 106 H 05/08/17 08:40 100.4 F H 106 H 05/08/17 08:30 100.4 F H 107 H 05/08/17 08:20 100.4 F H 102 H 100 05/08/17 08:10 100.4 F H 103 H 100 05/08/17 08:00 100.6 F H 103 H 100 05/08/17 07:51 18 98 05/08/17 07:50 100.6 F H 102 H 100 Intake and Output (Last 8hrs): Intake & Output 05/07/17 05/08/17 05/08/17 22:59 06:59 14:59 Intake Total 1138 1050 80 Output Total 520 700 Balance 618 350 80 Weight 190 lb Intake: IV 560 850 80 ANTIBIOTIC 350 fentanyl 110 versed drip 0 750 Oral 200 Blood Product 578 Apheresis Plts Acda Lr 289 Irr Unit [id number] Output: Chest Tube Drainage 70 200 Left Mid-Axillary Chest 70 200 Urine 450 500 Urethral (Yu) 450 500 Other: # Bowel Movements 2 2 - Medications Active Medications: Active Medications Generic Name Dose Route Start Last Admin Trade Name Freq PRN Reason Stop Dose Admin Acetaminophen 650 mg 04/23/17 16:13 Tylenol 325mg Tab PO Q6H PRN Fever >100.4 F Albuterol/Ipratropium 3 ml 04/23/17 20:00 05/08/17 07:36 Duoneb 3 Mg/0.5 Mg (3 Ml) Ud IH 3 ml [id number] CEM Administration Albuterol/Ipratropium 3 ml 04/23/17 16:13 04/24/17 23:34 Duoneb 3 Mg/0.5 Mg (3 Ml) Ud IH 3 ml Q2H PRN Administration Shortness of Breath Albuterol/Ipratropium 3 ml 04/25/17 00:07 04/25/17 00:30 Duoneb 3 Mg/0.5 Mg (3 Ml) Ud IH 3 ml Q2H PRN Administration Shortness of Breath Chlorhexidine Gluconate 15 ml 04/26/17 18:00 05/07/17 17:25 Peridex PO 15 ml BID CEM Administration Folic Acid 1 mg 04/27/17 12:00 05/08/17 09:41 Folic Acid PO Not Given DAILY CEM Guaifenesin/Dextromethorphan 5 ml 04/24/17 19:29 Robitussin Dm PO Q6H PRN Cough Heparin Sodium (Porcine) 5,000 units 04/30/17 10:00 04/30/17 22:49 Heparin SC Not Given Q8 [facility] Protocol Midazolam 100 mg/100ml in NS 100 mg in 100 mls @ 1 mls/hr 05/02/17 07:34 09:24 Midazolam 100 Mg/100ml In Ns IV 2 mg/hr .Q24H PRN 2 mls/hr Agitation Administration Protocol 1 MG/HR Fentanyl Citrate 1,000 mcg in 100 mls @ 15 mls/hr 05/05/17 01:11 05/08/17 05: 50 Fentanyl Citrate/Sodium Chloride 1 Mg/100 Ml IV 25 mcg/hr .Q6H40M PRN 2.5 mls/hr TITRATE PER MD ORDER Administration Protocol 150 MCG/HR Vancomycin HCl 1 gm in 250 mls @ 167 mls/hr 05/07/17 07:15 05/08/17 07:52 Vancomycin 1gm IVPB 167 mls/hr Q12H CEM Administration Protocol Meropenem 1 gm/ Dextrose 100 mls @ 100 mls/hr 05/08/17 06:45 IVPB 05/15/17 06:46 Q8 [facility] Protocol Micafungin Sodium 100 mg/ 100 mls @ 100 mls/hr 05/08/17 10:00 Sodium Chloride IV 05/15/17 10:01 DAILY [facility] Protocol Sodium Chloride 1,000 mls @ 999 mls/hr 05/08/17 11:02 Sodium Chloride 0.9% IV 05/08/17 12:02 .Q1H1M STA Magnesium Oxide 400 mg 05/06/17 16:45 05/08/17 09:41 Mag-Ox PO Not Given DAILY [facility] Midazolam HCl 2 mg 04/29/17 09:28 05/03/17 18:20 Versed Inj IVP 2 mg Q2 PRN Administration Agitation Midodrine 10 mg 04/30/17 10:00 05/08/17 09:41 Proamatine PO Not Given TID [facility] Multivitamins/Minerals 1 tab 04/26/17 12:00 05/08/17 09:41 Therapeutic-M Tab PO Not Given 0800 [facility] Ondansetron HCl 4 mg 04/23/17 16:13 Zofran Inj IVP Q6H PRN Nausea/Vomiting Pantoprazole Sodium 40 mg 04/23/17 16:15 05/08/17 09:23 Protonix Inj IVP 40 mg DAILY [facility] Administration Vitamin A 1 ea 05/04/17 08:03 05/06/17 11:33 Vitamin A & D Oint Ud Foilpak TOP 1 ea Q8 PRN Administration dry, cracked lips - Patient Studies Lab Studies: Microbiology Studies 05/06/17 11:40 Gram Stain - Final Sputum Induced Sputum Culture - Final NORMAL ORAL PAMELLA 05/06/17 09:30 Blood Culture - Preliminary Blood-Venous NO GROWTH AFTER 48 HOURS 05/06/17 09:30 Blood Culture - Preliminary Blood-Venous NO GROWTH AFTER 48 HOURS 05/06/17 11:40 Urine Culture - Final Urine,Catheterized Yeast Species Lab Studies 05/08/17 05/08/17 05/08/17 Range/Units 08:18 06:50 06:50 WBC (4.5-11.0) 10^3/ul RBC (3.5-6.1) 10^6/uL Hgb (14.0-18.0) g/dL Hct (42.0-52.0) % MCV (80.0-105.0) fl MCH (25.0-35.0) pg MCHC (31.0-37.0) g/dl RDW (11.5-14.5) % Plt Count (120.0-450.0) 10^3/uL MPV (7.0-11.0) fl Gran % (50.0-68.0) % Lymph % (Auto) (22.0-35.0) % Bremer % (Auto) (1.0-6.0) % Eos % (Auto) (1.5-5.0) % Baso % (Auto) (0.0-3.0) % Gran # (1.4-6.5) Lymph # (1.2-3.4) Bremer # (0.1-0.6) Eos # (0.0-0.7) Baso # (0.0-2.0) K/mm3 PT 16.4 H (9.4-12.5) SECONDS INR 1.48 H (0.93-1.08) APTT 34.9 (25.1-36.5) Seconds pCO2 40 (35-45) mm/Hg pO2 126.0 H (80-100) mm/Hg HCO3 27.2 (21-28) mmol/L ABG pH 7.44 (7.35-7.45) ABG Total CO2 28.4 H (22-28) mmol.L ABG O2 Saturation 99.5 H (95-98) % ABG Base Excess 2.8 (-2.0-3.0) mmol/L ABG Potassium 3.4 L (3.6-5.2) mmol/L Glucose 89 (75-110) mg/dl Lactate 1.7 (0.7-2.1) mmol/L FiO2 40 % Sodium 143.0 141 (132-148) mmol/L Potassium 3.7 (3.6-5.0) mmol/L Chloride 113.0 H 108 H (98-107) mmol/L Carbon Dioxide 27 (21-33) mmol/L Anion Gap 11 (10-20) BUN 46 H (7-21) mg/dL Creatinine 1.1 (0.8-1.5) mg/dl Est GFR ( Amer) > 60 Est GFR (Non-Af Amer) > 60 POC Glucose (mg/dL) (65-110) mg/dL Random Glucose 93 (70-110) mg/dL Calcium 8.3 L (8.4-10.5) mg/dL Phosphorus 3.6 (2.5-4.5) mg/dL Magnesium 1.9 (1.7-2.2) mg/dL Total Bilirubin 2.2 H (0.2-1.3) mg/dL AST 42 (17-59) U/L ALT 46 (7-56) U/L Alkaline Phosphatase 200 H (38-126) U/L Total Protein 4.6 L (5.8-8.3) g/dL Albumin 2.2 L (3.0-4.8) g/dL Globulin 2.4 gm/dL Albumin/Globulin Ratio 1.0 L (1.1-1.8) Arterial Blood Potassium 3.4 L (3.6-5.2) mmol/L Blood Type Antibody Screen BBK History Checked 05/08/17 05/08/17 05/07/17 Range/Units 06:50 04:20 23:51 WBC 13.7 H (4.5-11.0) 10^3/ul RBC 2.79 L (3.5-6.1) 10^6/uL Hgb 8.5 L (14.0-18.0) g/dL Hct 26.6 L (42.0-52.0) % MCV 95.3 (80.0-105.0) fl MCH 30.5 (25.0-35.0) pg MCHC 32.0 (31.0-37.0) g/dl RDW 19.3 H (11.5-14.5) % Plt Count 78 L (120.0-450.0) 10^3/uL MPV 10.6 (7.0-11.0) fl Gran % 82.3 H (50.0-68.0) % Lymph % (Auto) 10.2 L (22.0-35.0) % Bremer % (Auto) 6.1 H (1.0-6.0) % Eos % (Auto) 1.3 L (1.5-5.0) % Baso % (Auto) 0.1 (0.0-3.0) % Gran # 11.26 H (1.4-6.5) Lymph # 1.4 (1.2-3.4) Bremer # 0.8 H (0.1-0.6) Eos # 0.2 (0.0-0.7) Baso # 0.01 (0.0-2.0) K/mm3 PT (9.4-12.5) SECONDS INR (0.93-1.08) APTT (25.1-36.5) Seconds pCO2 (35-45) mm/Hg pO2 (80-100) mm/Hg HCO3 (21-28) mmol/L ABG pH (7.35-7.45) ABG Total CO2 (22-28) mmol.L ABG O2 Saturation (95-98) % ABG Base Excess (-2.0-3.0) mmol/L ABG Potassium (3.6-5.2) mmol/L Glucose (75-110) mg/dl Lactate (0.7-2.1) mmol/L FiO2 % Sodium (132-148) mmol/L Potassium (3.6-5.0) mmol/L Chloride (98-107) mmol/L Carbon Dioxide (21-33) mmol/L Anion Gap (10-20) BUN (7-21) mg/dL Creatinine (0.8-1.5) mg/dl Est GFR ( Amer) Est GFR (Non-Af Amer) POC Glucose (mg/dL) 92 115 H (65-110) mg/dL Random Glucose (70-110) mg/dL Calcium (8.4-10.5) mg/dL Phosphorus (2.5-4.5) mg/dL Magnesium (1.7-2.2) mg/dL Total Bilirubin (0.2-1.3) mg/dL AST (17-59) U/L ALT (7-56) U/L Alkaline Phosphatase (38-126) U/L Total Protein (5.8-8.3) g/dL Albumin (3.0-4.8) g/dL Globulin gm/dL Albumin/Globulin Ratio (1.1-1.8) Arterial Blood Potassium (3.6-5.2) mmol/L Blood Type Antibody Screen BBK History Checked 05/07/17 05/07/17 05/07/17 Range/Units 19:42 12:55 12:55 WBC (4.5-11.0) 10^3/ul RBC (3.5-6.1) 10^6/uL Hgb (14.0-18.0) g/dL Hct (42.0-52.0) % MCV (80.0-105.0) fl MCH (25.0-35.0) pg MCHC (31.0-37.0) g/dl RDW (11.5-14.5) % Plt Count (120.0-450.0) 10^3/uL MPV (7.0-11.0) fl Gran % (50.0-68.0) % Lymph % (Auto) (22.0-35.0) % Bremer % (Auto) (1.0-6.0) % Eos % (Auto) (1.5-5.0) % Baso % (Auto) (0.0-3.0) % Gran # (1.4-6.5) Lymph # (1.2-3.4) Bremer # (0.1-0.6) Eos # (0.0-0.7) Baso # (0.0-2.0) K/mm3 PT 17.2 H (9.4-12.5) SECONDS INR 1.55 H (0.93-1.08) APTT 34.6 (25.1-36.5) Seconds pCO2 (35-45) mm/Hg pO2 (80-100) mm/Hg HCO3 (21-28) mmol/L ABG pH (7.35-7.45) ABG Total CO2 (22-28) mmol.L ABG O2 Saturation (95-98) % ABG Base Excess (-2.0-3.0) mmol/L ABG Potassium (3.6-5.2) mmol/L Glucose (75-110) mg/dl Lactate (0.7-2.1) mmol/L FiO2 % Sodium (132-148) mmol/L Potassium (3.6-5.0) mmol/L Chloride (98-107) mmol/L Carbon Dioxide (21-33) mmol/L Anion Gap (10-20) BUN (7-21) mg/dL Creatinine (0.8-1.5) mg/dl Est GFR ( Amer) Est GFR (Non-Af Amer) POC Glucose (mg/dL) 108 (65-110) mg/dL Random Glucose (70-110) mg/dL Calcium (8.4-10.5) mg/dL Phosphorus (2.5-4.5) mg/dL Magnesium (1.7-2.2) mg/dL Total Bilirubin (0.2-1.3) mg/dL AST (17-59) U/L ALT (7-56) U/L Alkaline Phosphatase (38-126) U/L Total Protein (5.8-8.3) g/dL Albumin (3.0-4.8) g/dL Globulin gm/dL Albumin/Globulin Ratio (1.1-1.8) Arterial Blood Potassium (3.6-5.2) mmol/L Blood Type O POSITIVE Antibody Screen Negative BBK History Checked Patient has bt Laboratory Results - last 24 hr 05/07/17 05/07/17 05/07/17 12:55 12:55 19:42 WBC RBC Hgb Hct MCV MCH MCHC RDW Plt Count MPV Gran % Lymph % (Auto) Bremer % (Auto) Eos % (Auto) Baso % (Auto) Gran # Lymph # Bremer # Eos # Baso # PT 17.2 H INR 1.55 H APTT 34.6 pCO2 pO2 HCO3 ABG pH ABG Total CO2 ABG O2 Saturation ABG Base Excess ABG Potassium Glucose Lactate FiO2 Sodium Potassium Chloride Carbon Dioxide Anion Gap BUN Creatinine Est GFR ( Amer) Est GFR (Non-Af Amer) POC Glucose (mg/dL) 108 Random Glucose Calcium Phosphorus Magnesium Total Bilirubin AST ALT Alkaline Phosphatase Total Protein Albumin Globulin Albumin/Globulin Ratio Arterial Blood Potassium Blood Type O POSITIVE Antibody Screen Negative BBK History Checked Patient has bt 05/07/17 05/08/17 05/08/17 23:51 04:20 06:50 WBC 13.7 H RBC 2.79 L Hgb 8.5 L Hct 26.6 L MCV 95.3 MCH 30.5 MCHC 32.0 RDW 19.3 H Plt Count 78 L MPV 10.6 Gran % 82.3 H Lymph % (Auto) 10.2 L Bremer % (Auto) 6.1 H Eos % (Auto) 1.3 L Baso % (Auto) 0.1 Gran # 11.26 H Lymph # 1.4 Bremer # 0.8 H Eos # 0.2 Baso # 0.01 PT INR APTT pCO2 pO2 HCO3 ABG pH ABG Total CO2 ABG O2 Saturation ABG Base Excess ABG Potassium Glucose Lactate FiO2 Sodium Potassium Chloride Carbon Dioxide Anion Gap BUN Creatinine Est GFR ( Amer) Est GFR (Non-Af Amer) POC Glucose (mg/dL) 115 H 92 Random Glucose Calcium Phosphorus Magnesium Total Bilirubin AST ALT Alkaline Phosphatase Total Protein Albumin Globulin Albumin/Globulin Ratio Arterial Blood Potassium Blood Type Antibody Screen BBK History Checked 05/08/17 05/08/17 05/08/17 06:50 06:50 08:18 WBC RBC Hgb Hct MCV MCH MCHC RDW Plt Count MPV Gran % Lymph % (Auto) Bremer % (Auto) Eos % (Auto) Baso % (Auto) Gran # Lymph # Bremer # Eos # Baso # PT 16.4 H INR 1.48 H APTT 34.9 pCO2 40 pO2 126.0 H HCO3 27.2 ABG pH 7.44 ABG Total CO2 28.4 H ABG O2 Saturation 99.5 H ABG Base Excess 2.8 ABG Potassium 3.4 L Glucose 89 Lactate 1.7 FiO2 40 Sodium 141 143.0 Potassium 3.7 Chloride 108 H 113.0 H Carbon Dioxide 27 Anion Gap 11 BUN 46 H Creatinine 1.1 Est GFR ( Amer) > 60 Est GFR (Non-Af Amer) > 60 POC Glucose (mg/dL) Random Glucose 93 Calcium 8.3 L Phosphorus 3.6 Magnesium 1.9 Total Bilirubin 2.2 H AST 42 ALT 46 Alkaline Phosphatase 200 H Total Protein 4.6 L Albumin 2.2 L Globulin 2.4 Albumin/Globulin Ratio 1.0 L Arterial Blood Potassium 3.4 L Blood Type Antibody Screen BBK History Checked Assessment/Plan - Assessment and Plan (Free Text) Assessment: Patient seen and examined, on rounds with resident, agree with note, with following additions/exceptions: Patient is 76yo male a/w septic shock, 2/2 PNA/Empyema, s/p thoracentesis and Chest tube drainage with large bore CT, s/p thoracotomy with CT surgery, post op course complicated with thoracic bleeding, retaken back to the OR, hemostasis achieved. Currently hypotensive SBP 80s, receiving IVF bolus, sedation lightened. Patient if HD stable will undergo tracheostomy today. Empyema/Pleural Effusion s/p thoracotomy PNA Hypothyroidism Recommend - cont with ventilatory support, low tidal vol ventilation - daily CPAP trials, sedation vacation - antibiotics as per ID - follow up cultures - follow up cardiology - monitor HH - monitor FS - follow up CT Surgery, possible tracheostomy today - MVT, Thiamine, Folic Acid - GI ppx - DVT ppx - extermination inspector planning, L-tach
[2017-05-08] MEDS: Midazolam 100 mg/100ml in NS 100 MG/100 ML SOL IV PRN ×2 (09:24→11:14)
[2017-05-08] MEDS: Magnesium Oxide 400 mg Tab UD PO SCH (09:41)
[2017-05-08] MEDS: Multivitamin With Minerals Tab PO SCH (09:41)
[2017-05-08] MEDS: Micafungin 100 MG in Sodium Chloride 0.9% 100 ML IV SCH (10:21)
--- NOTE | 2017-05-08 10:21 | CP.PCM.PN ---
Subjective - Date & Time of Evaluation Date of Evaluation: 05/08/17 Time of Evaluation: 09:10 - Subjective Subjective: Developed low grade fever again this morning but is improving now, still on the ventilator, for tracheostomy placement today. Still with chest tube, no diarrhea. Objective - Vital Signs/Intake and Output Vital Signs (last 24 hours): Temp Pulse Resp BP Pulse Ox 100.6 F H 106 H 19 108/53 L 100 05/08/17 06:26 05/08/17 06:26 05/07/17 18:00 05/07/17 18:00 05/08/17 06:26 Intake and Output: 05/07/17 05/08/17 18:59 06:59 Intake Total 1238 1050 Output Total 520 630 Balance 718 420 - Medications Medications: Current Medications Acetaminophen (Tylenol 325mg Tab) 650 mg PO Q6H PRN PRN Reason: Fever >100.4 F Albuterol/Ipratropium (Duoneb 3 Mg/0.5 Mg (3 Ml) Ud) 3 ml IH [id number] [facility] Last Admin: 05/08/17 01:33 Dose: 3 ml Albuterol/Ipratropium (Duoneb 3 Mg/0.5 Mg (3 Ml) Ud) 3 ml IH Q2H PRN PRN Reason: Shortness of Breath Last Admin: 04/24/17 23:34 Dose: 3 ml Albuterol/Ipratropium (Duoneb 3 Mg/0.5 Mg (3 Ml) Ud) 3 ml IH Q2H PRN PRN Reason: Shortness of Breath Last Admin: 04/25/17 00:30 Dose: 3 ml Chlorhexidine Gluconate (Peridex) 15 ml PO BID [facility] Last Admin: 05/07/17 17:25 Dose: 15 ml Folic Acid (Folic Acid) 1 mg PO DAILY [facility] Last Admin: 05/07/17 09:27 Dose: 1 mg Guaifenesin/Dextromethorphan (Robitussin Dm) 5 ml PO Q6H PRN PRN Reason: Cough Heparin Sodium (Porcine) (Heparin) 5,000 units SC Q8 [facility] PRN Reason: Protocol Last Admin: 04/30/17 22:49 Dose: Not Given Midazolam 100 mg/100ml in NS (Midazolam 100 Mg/100ml In Ns) 100 mg in 100 mls @ 1 mls/hr IV .Q24H PRN; Protocol; 1 MG/HR PRN Reason: Agitation Last Titration: 05/06/17 07:48 Dose: 0 mg/hr, 0 mls/hr Fentanyl Citrate (Fentanyl Citrate/Sodium Chloride 1 Mg/100 Ml) 1,000 mcg in 100 mls @ 15 mls/hr IV .Q6H40M PRN; Protocol; 150 MCG/HR PRN Reason: TITRATE PER MD ORDER Last Admin: 05/08/17 05:50 Dose: 25 mcg/hr, 2.5 mls/hr Vancomycin HCl (Vancomycin 1gm) 1 gm in 250 mls @ 167 mls/hr IVPB Q12H CEM PRN Reason: Protocol Last Admin: 05/07/17 19:30 Dose: 167 mls/hr Meropenem 1 gm/ Dextrose 100 mls @ 100 mls/hr IVPB Q8 CEM PRN Reason: Protocol Stop: 05/15/17 06:46 Magnesium Oxide (Mag-Ox) 400 mg PO DAILY [facility] Last Admin: 05/07/17 09:31 Dose: 400 mg Midazolam HCl (Versed Inj) 2 mg IVP Q2 PRN PRN Reason: Agitation Last Admin: 05/03/17 18:20 Dose: 2 mg Midodrine (Proamatine) 10 mg PO TID [facility] Last Admin: 05/07/17 17:26 Dose: 10 mg Multivitamins/Minerals (Therapeutic-M Tab) 1 tab PO 0800 [facility] Last Admin: 05/07/17 08:11 Dose: 1 tab Ondansetron HCl (Zofran Inj) 4 mg IVP Q6H PRN PRN Reason: Nausea/Vomiting Pantoprazole Sodium (Protonix Inj) 40 mg IVP DAILY [facility] Last Admin: 05/07/17 09:28 Dose: 40 mg Vitamin A (Vitamin A & D Oint Ud Foilpak) 1 ea TOP Q8 PRN PRN Reason: dry, cracked lips Last Admin: 05/06/17 11:33 Dose: 1 ea - Labs Labs: 05/07/17 06:20 05/07/17 07:00 PT 17.2 SECONDS (9.4-12.5) H 05/07/17 12:55 INR 1.55 (0.93-1.08) H 05/07/17 12:55 APTT 34.6 Seconds (25.1-36.5) 05/07/17 12:55 - Constitutional Appears: Other (intubated, on sedation but patient is restless currently) - ENT Exam Additional comments: ET tube in place - Respiratory Exam Respiratory Exam: Decreased Breath Sounds - Cardiovascular Exam Cardiovascular Exam: +S1, +S2 Additional comments: left sided chest tube in place - GI/Abdominal Exam GI & Abdominal Exam: Soft. absent: Tenderness Assessment and Plan - Assessment and Plan (Free Text) Plan: Assessment Severe sepsis with ventilator dependent respiratory failure due to left sided severe community-acquired aspiration pneumonia with left sided pleural effusion S/P thoracentesis and now S/P chest tube placement POD #13, S/P VATS and decortication of possible empyema POD #7 - new onset fevers R/O new onset sepsis S/P acute drop in Hemoglobin, thrombocytopenia, clinically improving history of alcohol abuse hypothyroidism cataracts S/P left eye surgery HTN dementia Plan platelets decreased again yesterday - will hold Zyvox (had 3 days) and continue Vancomycin and will continue Merrem day 15 (we have d/c'ed Zithromax); pleural fluid cx are negative; will continue monitor chest tube output - OR cultures are negative follow up results of the repeat septic work up done 2 days (especially from the PICC line) to rule out new onset sepsis (had fever 2 days ago and has low grade fever today) - added MYcamine for the yeast in the urine; if his fever subsides and becomes afebrile in the next 24 hours, will d/c antibiotics ICU team monitoring Hemoglobin and patient is also being monitored by CT surgery will continue to monitor clinically overall prognosis is poor for tracheostomy placement today
[2017-05-08] MEDS ORDERED: Sodium Chloride 0.9% 1,000 ML IV STA ×2 (11:02→17:17)
[2017-05-08] MEDS ORDERED: Rocuronium 10 mg/ml (5 ml) ONE (12:29)
--- NOTE | 2017-05-08 12:53 | PN ---
DATE: SUBJECTIVE: The patient is a 76-year-old remain intubated, and minimally responsive. PHYSICAL EXAMINATION VITAL SIGNS: He is afebrile, pulse is 93, respirations are 18, and blood pressure is 112/49. LUNGS: Bilateral fair airflow. Has chest tube in the left lower chest area. Endotracheal tube in place. HEAD AND NECK: He has pale conjunctiva. Slightly icteric sclera. HEART: S1 and S2 audible. ABDOMEN: Soft and nontender. NEUROLOGIC: He is sedated. LABORATORY DATA: WBC is 16.0, hemoglobin is 9.8, hematocrit is 30.8, and platelets of 62. Chemistries: Sodium of 141, potassium of 3.9, chloride of 108, CO2 of 29, BUN of 44, creatinine of 1.0, blood sugar of 85. LFTs are within normal limits. ASSESSMENT: 1. Respiratory failure. 2. Status post left chest tube insertion because of loculated empyema. 3. Renal insufficiency improved. 4. History of alcohol abuse and coagulopathy. PLAN: Currently, the patient is on 40% of oxygen with tidal volume of 400 and PEEP of 18. We discussed with the patient's family and discussed with sports doctor. The plan is to do tracheostomy and if he survives till that, then plan will be to send him to LTAC. Tony Ochoa MD
--- NOTE | 2017-05-08 13:53 | PCM.SURG1 ---
Surgeon's Initial Post Op Note - Surgeon's Notes Surgeon: Dr. He Radiology Orderly: Dr. Penaloza PGY2, Ananth MS4 Type of Anesthesia: General Endo Pre-Operative Diagnosis: Prolonged Ventilator Dependence Operative Findings: See operative report Post-Operative Diagnosis: Prolonged Ventilator Dependence Operation Performed: Open Tracheostomy Specimen/Specimens Removed: None Estimated Blood Loss: EBL {In ML}: 200 Blood Products Given: N/A Drains Used: No Drains Post-Op Condition: Fair Date of Surgery/Procedure: 05/08/17 Time of Surgery/Procedure: 13:53
[2017-05-08] MEDS: Meropenem 1 GM in Dextrose 5% In Water 100 ML IVPB SCH ×2 (14:22→22:00)
--- NOTE | 2017-05-08 23:00 | PN ---
DATE: SUBJECTIVE: The patient is a 76-year-old, had tracheostomy done today. PHYSICAL EXAMINATION VITAL SIGNS: He is afebrile. Pulse 97 respirations 18 and blood pressure 123/61. LUNGS: Bilateral fair airflow. No rhonchi or crackles. HEART: S1 and S2 audible. ABDOMEN: Soft. NEUROLOGICALLY: Sleepy, but arousable. EXTREMITIES: Bilateral legs no edema. LABORATORY DATA: WBC 13.7, hemoglobin 8.5, hematocrit 26 and platelet of 78. PT 16.4 and INR 1.48. Chemistries; sodium 141, potassium 3.7, chloride 108, CO2 of 27, BUN 46, creatinine 1.1 and blood sugar of 93. Her chest tube in the left lower chest area draining hemorrhagic fluid. ASSESSMENT: 1. Respiratory failure. 2. Left lower lung empyema status post chest tube insertion and open thoracotomy. 3. Anemia. 4. Thrombocytopenia. 5. History of alcohol abuse leading to coagulopathy. 6. Hypothyroidism. 7. Hypertension. PLAN: Currently, the patient is on nebulizer treatment. He was on DVT prophylaxis, but because of low platelet that has been held. Currently, he is also getting meropenem, micafungin and he is on IV fluids. He is getting multivitamin. Discussed with Dr. Araujo. Plan for the LTAC once the patient is stable. Tony Ochoa MD
--- NOTE | 2017-05-08 23:03 | OP ---
PROCEDURE DATE: 05/08/2017 PREOPERATIVE DIAGNOSIS: Respiratory failure. PROCEDURE: Tracheostomy using #6 Shiley. ANESTHESIA: General. 1. INDICATIONS FOR SURGERY: This is an elderly gentleman with respiratory failure for about 3 weeks, had empyema and thoracotomy, continued with persistent, unable to wean off the ventilator and opted for tracheostomy for better weaning possibility and hygiene. DESCRIPTION OF PROCEDURE: After general endotracheal anesthesia was applied, the neck was slightly extended. The neck from the upper chest was washed with Betadine solution, draped in a sterile manner. We made a transverse incision just above the manubrium. We used a cautery to cut down to the midline to the trachea, taking care not to injure to the thyroid or any other vascular structures. We were able to find the trachea in the midline, developed the pretracheal space, dissected it down. Approximately, the second tracheal rim, we were able to excise, dilated the tracheotomy, asked the anesthesiologist to bring the ET tube back until we could see the tip of it. We dilated the ostium and placed the #6 Shiley easily and connected it to the ventilator. We respiratory setting at this time. The cuff was inflated. The silk sutures were then used to fastened the tracheostomy through the skin and we sent back to the recovery room stable. Benjamin He MD
[2017-05-09] MEDS: Albuterol-Ipratrop 3 mg / 0.5 (3 ml) UD IH SCH ×3 (02:29→13:07)
[2017-05-09] MEDS: Fentanyl 1000mcg/100ml NS 1,000 MCG/100 ML BAG IV PRN (03:08)
[2017-05-09] MEDS: Meropenem 1 GM in Dextrose 5% In Water 100 ML IVPB SCH ×2 (05:22→13:54)
[2017-05-09 05:47] LABS: ARTERIAL BLOOD GAS HCO3 27.3 mmol/L (21-28); ARTERIAL BLOOD GAS O2 CAPACITY 11.2 mL/dl (16-24); ARTERIAL BLOOD GAS O2 CONTENT 11.2 ML/dl (15-23); ARTERIAL BLOOD HGB O2 SAT 95.9 % (95.0-98.0); CARBOXYHEMOGLOBIN 2.6 % (0.5-1.5); HHB 0.4 % (0-5)
[2017-05-09 06:35] LABS: BASO # 0.01 K/mm3 (0.0-2.0); BASO % 0.1 % (0.0-3.0); EOS # 0.2 (0.0-0.7); EOS % 2.3 % (1.5-5.0); GRAN # 6.21 (1.4-6.5); HEMATOCRIT 25.5 % (42.0-52.0); LYMPH # 0.9 (1.2-3.4); LYMPH % 11.7 % (22.0-35.0); MEAN CORPUSCULAR HEMOGLOBIN 30.4 pg (25.0-35.0); MEAN CORPUSCULAR HGB CONC 31.4 g/dl (31.0-37.0); MEAN PLATELET VOLUME 10.1 fl (7.0-11.0); MONO # 0.5 (0.1-0.6); MONO % 6.9 % (1.0-6.0); RED CELL DISTRIBUTION WIDTH 19.7 % (11.5-14.5); WHITE BLOOD COUNT 7.9 10^3/ul (4.5-11.0)
[2017-05-09 07:05] VITALS: RESP 18
[2017-05-09 07:10] LABS: ALB/GLOB RATIO 0.9 (1.1-1.8); ALKALINE PHOSPHATASE 151 U/L (38-126); ALT/SGPT 48 U/L (7-56); AST/SGOT 43 U/L (17-59); BILIRUBIN,TOTAL 2.1 mg/dL (0.2-1.3); BLOOD UREA NITROGEN 43 mg/dL (7-21); CALCIUM 8.3 mg/dL (8.4-10.5); CARBON DIOXIDE 27 mmol/L (21-33); CHLORIDE 112 mmol/L (98-107); GFR AFRICAN-AMERICAN > 60; GLUCOSE,RANDOM 78 mg/dL (70-110); MAGNESIUM 1.9 mg/dL (1.7-2.2); PHOSPHOROUS 3.8 mg/dL (2.5-4.5); POTASSIUM 3.5 mmol/L (3.6-5.0); SODIUM 145 mmol/L (132-148); TOTAL PROTEIN 4.9 g/dL (5.8-8.3)
[2017-05-09] MEDS: Vancomycin 1gm in NS 250ml 1 GM/250 ML BAG IVPB SCH (07:15)
[2017-05-09] MEDS: Magnesium Oxide 400 mg Tab UD PO SCH (09:39)
[2017-05-09] MEDS: Micafungin 100 MG in Sodium Chloride 0.9% 100 ML IV SCH (09:39)
[2017-05-09] MEDS: Multivitamin With Minerals Tab PO SCH (09:40)
--- NOTE | 2017-05-09 10:17 | CP.CCUPN ---
<Reece Abel - Last Filed: 05/09/17 10:13> CCU Subjective - Physician Review Events Since Last Encounter (Free Text): 05/09/17 10:[address] Santana Pt seen and examined at bedside. No acute events overnight. Patient failed trach collar trial this morning. No Fevers overnight. No acute distress. Surgery team to remove Left sided chest tubes today. Patient to be transferred to LTACH today CCU Objective - Vital Signs / Intake & Output Vital Signs (Last 4 hours): Vital Signs Temp Pulse Resp BP Pulse Ox 05/09/17 07:30 97.7 F 91 H 110/61 100 05/09/17 07:20 97.3 F L 88 100 05/09/17 07:10 97.3 F L 91 H 100 05/09/17 07:04 18 100 05/09/17 07:00 97.2 F L 87 111/59 L 100 05/09/17 06:50 97.2 F L 88 100 05/09/17 06:40 97.2 F L 93 H 100 05/09/17 06:30 97.2 F L 88 100 05/09/17 06:20 97.2 F L 89 100 Intake and Output (Last 8hrs): Intake & Output 05/08/17 05/09/17 05/09/17 22:59 06:59 14:59 Intake Total 2660 475 Output Total 520 600 Balance 2140 -125 Intake: IV 2050 475 ANTIBIOTIC 450 fentanyl 200 25 versed drip 1400 350 Oral 0 Blood Product 610 Output: Chest Tube Drainage 70 100 Left Mid-Axillary Chest 70 100 Urine 450 500 Urethral (Yu) 450 500 Stool 0 Other: # Bowel Movements 1 - Physical Exam Head: Positive for: Atraumatic, Normocephalic Extroacular Muscles: Positive for: Other (senile archus) Conjunctiva: Positive for: Normal Ears: Positive for: Normal Mouth: Positive for: Moist Mucous Membranes, Other (Right side of the lip with dried blood from ETT trauma. ) Pharnyx: Positive for: Other (Trach in place. No overt bleeding noted.). Negative for: ERYTHEMA, EXUDATE Nose (External): Positive for: Atraumatic Neck: Positive for: Trachea Midline. Negative for: Meningeal Signs Respiratory/Chest: Positive for: Good Air Exchange, Decreased Breath Sounds ( bilateral decreased breath sounds. ), Other (Left sided chest tubes removed, dressing clean, dry and intact. ). Negative for: Respiratory Distress, Wheezes , Rales, Rhonchi Cardiovascular: Positive for: Normal S1, S2. Negative for: Murmurs, Rub, Gallop Abdomen: Positive for: Normal Bowel Sounds. Negative for: Tenderness, Distention, Rebound, Guarding Back: Negative for: CVA Tenderness Upper Extremity: Positive for: Normal Inspection. Negative for: Cyanosis, Edema , Tenderness Lower Extremity: Positive for: NORMAL PULSES. Negative for: Edema, CALF TENDERNESS, Deformity Neurological: Positive for: Other (sedated) Skin: Positive for: Warm, Dry - Medications Active Medications: Active Medications Generic Name Dose Route Start Last Admin Trade Name Freq PRN Reason Stop Dose Admin Albuterol/Ipratropium 3 ml 04/23/17 20:00 05/09/17 07:02 Duoneb 3 Mg/0.5 Mg (3 Ml) Ud IH 3 ml [id number] CEM Administration Albuterol/Ipratropium 3 ml 04/25/17 00:07 04/25/17 00:30 Duoneb 3 Mg/0.5 Mg (3 Ml) Ud IH 3 ml Q2H PRN Administration Shortness of Breath Chlorhexidine Gluconate 15 ml 04/26/17 18:00 05/07/17 17:25 Peridex PO 15 ml BID CEM Administration Folic Acid 1 mg 04/27/17 12:00 05/09/17 09:39 Folic Acid PO Not Given DAILY CEM Guaifenesin/Dextromethorphan 5 ml 04/24/17 19:29 Robitussin Dm PO Q6H PRN Cough Heparin Sodium (Porcine) 5,000 units 04/30/17 10:00 04/30/17 22:49 Heparin SC Not Given Q8 CEM Protocol Midazolam 100 mg/100ml in NS 100 mg in 100 mls @ 1 mls/hr 05/02/17 07:34 11:14 Midazolam 100 Mg/100ml In Ns IV 2 mg/hr .Q24H PRN 2 mls/hr Agitation Administration Protocol 1 MG/HR Fentanyl Citrate 1,000 mcg in 100 mls @ 15 mls/hr 05/05/17 01:11 05/09/17 03: 08 Fentanyl Citrate/Sodium Chloride 1 Mg/100 Ml IV 25 mcg/hr .Q6H40M PRN 2.5 mls/hr TITRATE PER MD ORDER Administration Protocol 150 MCG/HR Vancomycin HCl 1 gm in 250 mls @ 167 mls/hr 05/07/17 07:15 05/09/17 07:15 Vancomycin 1gm IVPB 167 mls/hr Q12H CEM Administration Protocol Meropenem 1 gm/ Dextrose 100 mls @ 100 mls/hr 05/08/17 06:45 05/09/17 05:22 IVPB 05/15/17 06:46 100 mls/hr Q8 CEM Administration Protocol Micafungin Sodium 100 mg/ 100 mls @ 100 mls/hr 05/08/17 10:00 05/09/17 09:39 Sodium Chloride IV 05/15/17 10:01 100 mls/hr DAILY CEM Administration Protocol Magnesium Oxide 400 mg 05/06/17 16:45 05/09/17 09:39 Mag-Ox PO Not Given DAILY [facility] Midazolam HCl 2 mg 04/29/17 09:28 05/03/17 18:20 Versed Inj IVP 2 mg Q2 PRN Administration Agitation Midodrine 10 mg 04/30/17 10:00 05/09/17 09:40 Proamatine PO Not Given TID [facility] Multivitamins/Minerals 1 tab 04/26/17 12:00 05/09/17 09:40 Therapeutic-M Tab PO Not Given 0800 [facility] Vitamin A 1 ea 05/04/17 08:03 05/06/17 11:33 Vitamin A & D Oint Ud Foilpak TOP 1 ea Q8 PRN Administration dry, cracked lips - Patient Studies Lab Studies: Microbiology Studies 05/06/17 09:30 Blood Culture - Preliminary Blood-Venous NO GROWTH AFTER 3 DAYS 05/06/17 09:30 Blood Culture - Preliminary Blood-Venous NO GROWTH AFTER 3 DAYS 04/24/17 17:20 Mycobacterial Culture - Preliminary Other: Please Indicate 05/06/17 11:40 Gram Stain - Final Sputum Induced Sputum Culture - Final NORMAL ORAL PAMELLA Lab Studies 05/09/17 05/09/17 05/09/17 Range/Units 08:12 06:00 06:00 WBC 7.9 D (4.5-11.0) 10^3/ul RBC 2.63 L (3.5-6.1) 10^6/uL Hgb 8.0 L (14.0-18.0) g/dL Hct 25.5 L (42.0-52.0) % MCV 97.0 (80.0-105.0) fl MCH 30.4 (25.0-35.0) pg MCHC 31.4 (31.0-37.0) g/dl RDW 19.7 H (11.5-14.5) % Plt Count 77 L (120.0-450.0) 10^3/uL MPV 10.1 (7.0-11.0) fl Gran % 79.0 H (50.0-68.0) % Lymph % (Auto) 11.7 L (22.0-35.0) % Chaves % (Auto) 6.9 H (1.0-6.0) % Eos % (Auto) 2.3 (1.5-5.0) % Baso % (Auto) 0.1 (0.0-3.0) % Gran # 6.21 (1.4-6.5) Lymph # 0.9 L (1.2-3.4) Chaves # 0.5 (0.1-0.6) Eos # 0.2 (0.0-0.7) Baso # 0.01 (0.0-2.0) K/mm3 pCO2 (35-45) mm/Hg pO2 (80-100) mm/Hg HCO3 (21-28) mmol/L ABG pH (7.35-7.45) ABG Total CO2 (22-28) mmol.L ABG O2 Saturation (95-98) % ABG O2 Content (15-23) ML/dl ABG Base Excess (-2.0-3.0) mmol/L ABG Hemoglobin (11.7-17.4) g/dL ABG Carboxyhemoglobin (0.5-1.5) % POC ABG HHb (Measured) (0-5) % ABG Methemoglobin (0.0-3.0) % ABG O2 Capacity (16-24) mL/dl Hgb O2 Saturation (95.0-98.0) % FiO2 % Sodium 145 (132-148) mmol/L Potassium 3.5 L (3.6-5.0) mmol/L Chloride 112 H (98-107) mmol/L Carbon Dioxide 27 (21-33) mmol/L Anion Gap 9 L (10-20) BUN 43 H (7-21) mg/dL Creatinine 1.1 (0.8-1.5) mg/dl Est GFR ( Amer) > 60 Est GFR (Non-Af Amer) > 60 POC Glucose (mg/dL) 81 (65-110) mg/dL Random Glucose 78 (70-110) mg/dL Calcium 8.3 L (8.4-10.5) mg/dL Phosphorus 3.8 (2.5-4.5) mg/dL Magnesium 1.9 (1.7-2.2) mg/dL Total Bilirubin 2.1 H (0.2-1.3) mg/dL AST 43 (17-59) U/L ALT 48 (7-56) U/L Alkaline Phosphatase 151 H D (38-126) U/L Total Protein 4.9 L (5.8-8.3) g/dL Albumin 2.3 L (3.0-4.8) g/dL Globulin 2.6 gm/dL Albumin/Globulin Ratio 0.9 L (1.1-1.8) 05/09/17 05/09/17 05/09/17 Range/Units 05:15 04:08 00:21 WBC (4.5-11.0) 10^3/ul RBC (3.5-6.1) 10^6/uL Hgb (14.0-18.0) g/dL Hct (42.0-52.0) % MCV (80.0-105.0) fl MCH (25.0-35.0) pg MCHC (31.0-37.0) g/dl RDW (11.5-14.5) % Plt Count (120.0-450.0) 10^3/uL MPV (7.0-11.0) fl Gran % (50.0-68.0) % Lymph % (Auto) (22.0-35.0) % Chaves % (Auto) (1.0-6.0) % Eos % (Auto) (1.5-5.0) % Baso % (Auto) (0.0-3.0) % Gran # (1.4-6.5) Lymph # (1.2-3.4) Chaves # (0.1-0.6) Eos # (0.0-0.7) Baso # (0.0-2.0) K/mm3 pCO2 44 (35-45) mm/Hg pO2 170.0 H (80-100) mm/Hg HCO3 27.3 (21-28) mmol/L ABG pH 7.40 (7.35-7.45) ABG Total CO2 28.7 H (22-28) mmol.L ABG O2 Saturation 99.6 H (95-98) % ABG O2 Content 11.2 L (15-23) ML/dl ABG Base Excess 2.2 (-2.0-3.0) mmol/L ABG Hemoglobin 8.0 L (11.7-17.4) g/dL ABG Carboxyhemoglobin 2.6 H (0.5-1.5) % POC ABG HHb (Measured) 0.4 (0-5) % ABG Methemoglobin 1.0 (0.0-3.0) % ABG O2 Capacity 11.2 L (16-24) mL/dl Hgb O2 Saturation 95.9 (95.0-98.0) % FiO2 40.0 % Sodium (132-148) mmol/L Potassium (3.6-5.0) mmol/L Chloride (98-107) mmol/L Carbon Dioxide (21-33) mmol/L Anion Gap (10-20) BUN (7-21) mg/dL Creatinine (0.8-1.5) mg/dl Est GFR ( Amer) Est GFR (Non-Af Amer) POC Glucose (mg/dL) 90 81 (65-110) mg/dL Random Glucose (70-110) mg/dL Calcium (8.4-10.5) mg/dL Phosphorus (2.5-4.5) mg/dL Magnesium (1.7-2.2) mg/dL Total Bilirubin (0.2-1.3) mg/dL AST (17-59) U/L ALT (7-56) U/L Alkaline Phosphatase (38-126) U/L Total Protein (5.8-8.3) g/dL Albumin (3.0-4.8) g/dL Globulin gm/dL Albumin/Globulin Ratio (1.1-1.8) 05/08/17 05/08/17 05/08/17 Range/Units 20:11 16:16 11:45 WBC (4.5-11.0) 10^3/ul RBC (3.5-6.1) 10^6/uL Hgb (14.0-18.0) g/dL Hct (42.0-52.0) % MCV (80.0-105.0) fl MCH (25.0-35.0) pg MCHC (31.0-37.0) g/dl RDW (11.5-14.5) % Plt Count (120.0-450.0) 10^3/uL MPV (7.0-11.0) fl Gran % (50.0-68.0) % Lymph % (Auto) (22.0-35.0) % Chaves % (Auto) (1.0-6.0) % Eos % (Auto) (1.5-5.0) % Baso % (Auto) (0.0-3.0) % Gran # (1.4-6.5) Lymph # (1.2-3.4) Chaves # (0.1-0.6) Eos # (0.0-0.7) Baso # (0.0-2.0) K/mm3 pCO2 (35-45) mm/Hg pO2 (80-100) mm/Hg HCO3 (21-28) mmol/L ABG pH (7.35-7.45) ABG Total CO2 (22-28) mmol.L ABG O2 Saturation (95-98) % ABG O2 Content (15-23) ML/dl ABG Base Excess (-2.0-3.0) mmol/L ABG Hemoglobin (11.7-17.4) g/dL ABG Carboxyhemoglobin (0.5-1.5) % POC ABG HHb (Measured) (0-5) % ABG Methemoglobin (0.0-3.0) % ABG O2 Capacity (16-24) mL/dl Hgb O2 Saturation (95.0-98.0) % FiO2 % Sodium (132-148) mmol/L Potassium (3.6-5.0) mmol/L Chloride (98-107) mmol/L Carbon Dioxide (21-33) mmol/L Anion Gap (10-20) BUN (7-21) mg/dL Creatinine (0.8-1.5) mg/dl Est GFR ( Amer) Est GFR (Non-Af Amer) POC Glucose (mg/dL) 87 90 92 (65-110) mg/dL Random Glucose (70-110) mg/dL Calcium (8.4-10.5) mg/dL Phosphorus (2.5-4.5) mg/dL Magnesium (1.7-2.2) mg/dL Total Bilirubin (0.2-1.3) mg/dL AST (17-59) U/L ALT (7-56) U/L Alkaline Phosphatase (38-126) U/L Total Protein (5.8-8.3) g/dL Albumin (3.0-4.8) g/dL Globulin gm/dL Albumin/Globulin Ratio (1.1-1.8) 05/08/ Range/Units 07:35 WBC (4.5-11.0) 10^3/ul RBC (3.5-6.1) 10^6/uL Hgb (14.0-18.0) g/dL Hct (42.0-52.0) % MCV (80.0-105.0) fl MCH (25.0-35.0) pg MCHC (31.0-37.0) g/dl RDW (11.5-14.5) % Plt Count (120.0-450.0) 10^3/uL MPV (7.0-11.0) fl Gran % (50.0-68.0) % Lymph % (Auto) (22.0-35.0) % Chaves % (Auto) (1.0-6.0) % Eos % (Auto) (1.5-5.0) % Baso % (Auto) (0.0-3.0) % Gran # (1.4-6.5) Lymph # (1.2-3.4) Chaves # (0.1-0.6) Eos # (0.0-0.7) Baso # (0.0-2.0) K/mm3 pCO2 (35-45) mm/Hg pO2 (80-100) mm/Hg HCO3 (21-28) mmol/L ABG pH (7.35-7.45) ABG Total CO2 (22-28) mmol.L ABG O2 Saturation (95-98) % ABG O2 Content (15-23) ML/dl ABG Base Excess (-2.0-3.0) mmol/L ABG Hemoglobin (11.7-17.4) g/dL ABG Carboxyhemoglobin (0.5-1.5) % POC ABG HHb (Measured) (0-5) % ABG Methemoglobin (0.0-3.0) % ABG O2 Capacity (16-24) mL/dl Hgb O2 Saturation (95.0-98.0) % FiO2 % Sodium (132-148) mmol/L Potassium (3.6-5.0) mmol/L Chloride (98-107) mmol/L Carbon Dioxide (21-33) mmol/L Anion Gap (10-20) BUN (7-21) mg/dL Creatinine (0.8-1.5) mg/dl Est GFR ( Amer) Est GFR (Non-Af Amer) POC Glucose (mg/dL) 88 (65-110) mg/dL Random Glucose (70-110) mg/dL Calcium (8.4-10.5) mg/dL Phosphorus (2.5-4.5) mg/dL Magnesium (1.7-2.2) mg/dL Total Bilirubin (0.2-1.3) mg/dL AST (17-59) U/L ALT (7-56) U/L Alkaline Phosphatase (38-126) U/L Total Protein (5.8-8.3) g/dL Albumin (3.0-4.8) g/dL Globulin gm/dL Albumin/Globulin Ratio (1.1-1.8) Laboratory Results - last 24 hr 05/08/17 05/08/17 05/08/17 07:35 11:45 16:16 WBC RBC Hgb Hct MCV MCH MCHC RDW Plt Count MPV Gran % Lymph % (Auto) Chaves % (Auto) Eos % (Auto) Baso % (Auto) Gran # Lymph # Chaves # Eos # Baso # pCO2 pO2 HCO3 ABG pH ABG Total CO2 ABG O2 Saturation ABG O2 Content ABG Base Excess ABG Hemoglobin ABG Carboxyhemoglobin POC ABG HHb (Measured) ABG Methemoglobin ABG O2 Capacity Hgb O2 Saturation FiO2 Sodium Potassium Chloride Carbon Dioxide Anion Gap BUN Creatinine Est GFR ( Amer) Est GFR (Non-Af Amer) POC Glucose (mg/dL) 88 92 90 Random Glucose Calcium Phosphorus Magnesium Total Bilirubin AST ALT Alkaline Phosphatase Total Protein Albumin Globulin Albumin/Globulin Ratio 05/08/17 05/09/17 05/09/17 20:11 00:21 04:08 WBC RBC Hgb Hct MCV MCH MCHC RDW Plt Count MPV Gran % Lymph % (Auto) Chaves % (Auto) Eos % (Auto) Baso % (Auto) Gran # Lymph # Chaves # Eos # Baso # pCO2 pO2 HCO3 ABG pH ABG Total CO2 ABG O2 Saturation ABG O2 Content ABG Base Excess ABG Hemoglobin ABG Carboxyhemoglobin POC ABG HHb (Measured) ABG Methemoglobin ABG O2 Capacity Hgb O2 Saturation FiO2 Sodium Potassium Chloride Carbon Dioxide Anion Gap BUN Creatinine Est GFR ( Amer) Est GFR (Non-Af Amer) POC Glucose (mg/dL) 87 81 90 Random Glucose Calcium Phosphorus Magnesium Total Bilirubin AST ALT Alkaline Phosphatase Total Protein Albumin Globulin Albumin/Globulin Ratio 05/09/17 05/09/17 05/09/17 05:15 06:00 06:00 WBC 7.9 D RBC 2.63 L Hgb 8.0 L Hct 25.5 L MCV 97.0 MCH 30.4 MCHC 31.4 RDW 19.7 H Plt Count 77 L MPV 10.1 Gran % 79.0 H Lymph % (Auto) 11.7 L Chaves % (Auto) 6.9 H Eos % (Auto) 2.3 Baso % (Auto) 0.1 Gran # 6.21 Lymph # 0.9 L Chaves # 0.5 Eos # 0.2 Baso # 0.01 pCO2 44 pO2 170.0 H HCO3 27.3 ABG pH 7.40 ABG Total CO2 28.7 H ABG O2 Saturation 99.6 H ABG O2 Content 11.2 L ABG Base Excess 2.2 ABG Hemoglobin 8.0 L ABG Carboxyhemoglobin 2.6 H POC ABG HHb (Measured) 0.4 ABG Methemoglobin 1.0 ABG O2 Capacity 11.2 L Hgb O2 Saturation 95.9 FiO2 40.0 Sodium 145 Potassium 3.5 L Chloride 112 H Carbon Dioxide 27 Anion Gap 9 L BUN 43 H Creatinine 1.1 Est GFR ( Amer) > 60 Est GFR (Non-Af Amer) > 60 POC Glucose (mg/dL) Random Glucose 78 Calcium 8.3 L Phosphorus 3.8 Magnesium 1.9 Total Bilirubin 2.1 H AST 43 ALT 48 Alkaline Phosphatase 151 H D Total Protein 4.9 L Albumin 2.3 L Globulin 2.6 Albumin/Globulin Ratio 0.9 L 05/09/17 08:12 WBC RBC Hgb Hct MCV MCH MCHC RDW Plt Count MPV Gran % Lymph % (Auto) Chaves % (Auto) Eos % (Auto) Baso % (Auto) Gran # Lymph # Chaves # Eos # Baso # pCO2 pO2 HCO3 ABG pH ABG Total CO2 ABG O2 Saturation ABG O2 Content ABG Base Excess ABG Hemoglobin ABG Carboxyhemoglobin POC ABG HHb (Measured) ABG Methemoglobin ABG O2 Capacity Hgb O2 Saturation FiO2 Sodium Potassium Chloride Carbon Dioxide Anion Gap BUN Creatinine Est GFR ( Amer) Est GFR (Non-Af Amer) POC Glucose (mg/dL) 81 Random Glucose Calcium Phosphorus Magnesium Total Bilirubin AST ALT Alkaline Phosphatase Total Protein Albumin Globulin Albumin/Globulin Ratio Fingerstick Blood Sugar Results: 90 Assessment/Plan - Assessment and Plan (Free Text) Assessment: 76yo M w/ PMHx of dementia, ETOH abuse, and HTN who was admitted to the ICU for sepsis secondary to left sided empyema, s/p chest tube/thoracenthesis on 04/25 with immediate 1.5L of purulent fluid removed. Hospital course complicated with probable demand ischemia noted on 04/28. Thoracotomy w/ decortication on 05/01 complicated with post-op bleeding, returned to OR 05/02 with adequate hemostasis achieved. Patient coagulopathy improving s/p massive blood/blood product transfusion. Patient is maintained on ventilation and off of pressor support. Obtained Trach on 05/08. Chest tubes removed 05/09 Neuro: Hx of dementia, sedated with fentanyl Continue sedation vacation daily Failed trach collar trials today Cardio: septic shock improved, keep MAPs maintained > 65 off of pressor support troponins trended, reviewed, and appreciated- possible demand ischemia currently hemodynamically stable ECHO - dilated RA, dilated LA. LVEF wnl Continue with Midodrine 10mg PO TID Cardiology following- appreciate recs Pulm: Large left-sided empyema s/p Thoracotomy 05/01, complicated with post-op bleeding , returned to OR on 05/02 with adequate hemostasis. Chest tubes removed this morning. Will f/u Post-pull CXR. H/H stable VDRF. Trach placed by CT surgery yesterday CT surgery following, appreciate recs Continue on vent, PRVC, 40% FiO2, 5 PEEP, RR18 Continue Duonebs Continue micafungin, meropenem and vanc. aspiration precautions GI: Hyperbiliruinemia noted Protonix Possible degree of liver dysfunction in the setting of ETOH abuse, coagulopathy noted Patient to receive PEG at LTACH facility Renal/Electrolytes: Cont strict I&O BUN creatinine trended, reviewed, and appreciated monitor and replete as needed ID: Sepsis improving, Left chest empyema likely source Leukocytosis. Afebrile Cont merrem/vanc/micafungin ID, Dr. Shore following- appreciate recommendations Urine Cxs - Yeast growth Maintain euthermia Endo: Maintain euglycemia blood sugars between 140-180 Heme: Hb Stable Coagulopathy noted. Platelets 77 today. Repeat labs in the AM PPx: Protonix SCDs Dispo: To LTACH today at 3PM Patient seen and examined, case discussed with Dr. Esther Abel PGY1 <Jonathan Santana - Last Filed: 05/09/17 11:15> CCU Objective - Vital Signs / Intake & Output Vital Signs (Last 4 hours): Vital Signs Temp Pulse BP Pulse Ox 05/09/17 07:30 97.7 F 91 H 110/61 100 05/09/17 07:20 97.3 F L 88 100 Intake and Output (Last 8hrs): Intake & Output 05/08/17 05/09/17 05/09/17 22:59 06:59 14:59 Intake Total 2660 475 Output Total 520 600 Balance 2140 -125 Intake: IV 2049 475 ANTIBIOTIC 450 fentanyl 200 25 versed drip 1400 350 Oral 0 Blood Product 610 Output: Chest Tube Drainage 70 100 Left Mid-Axillary Chest 70 100 Urine 450 500 Urethral (Yu) 450 500 Stool 0 Other: # Bowel Movements 1 - Medications Active Medications: Active Medications Generic Name Dose Route Start Last Admin Trade Name Freq PRN Reason Stop Dose Admin Albuterol/Ipratropium 3 ml 04/23/17 20:00 05/09/17 07:02 Duoneb 3 Mg/0.5 Mg (3 Ml) Ud IH 3 ml [id number] CEM Administration Albuterol/Ipratropium 3 ml 04/25/17 00:07 04/25/17 00:30 Duoneb 3 Mg/0.5 Mg (3 Ml) Ud IH 3 ml Q2H PRN Administration Shortness of Breath Chlorhexidine Gluconate 15 ml 04/26/17 18:00 05/07/17 17:25 Peridex PO 15 ml BID CEM Administration Folic Acid 1 mg 04/27/17 12:00 05/09/17 09:39 Folic Acid PO Not Given DAILY CEM Guaifenesin/Dextromethorphan 5 ml 04/24/17 19:29 Robitussin Dm PO Q6H PRN Cough Heparin Sodium (Porcine) 5,000 units 04/30/17 10:00 04/30/17 22:49 Heparin SC Not Given Q8 CEM Protocol Midazolam 100 mg/100ml in NS 100 mg in 100 mls @ 1 mls/hr 05/02/17 07:34 11:14 Midazolam 100 Mg/100ml In Ns IV 2 mg/hr .Q24H PRN 2 mls/hr Agitation Administration Protocol 1 MG/HR Fentanyl Citrate 1,000 mcg in 100 mls @ 15 mls/hr 05/05/17 01:11 05/09/17 03: 08 Fentanyl Citrate/Sodium Chloride 1 Mg/100 Ml IV 25 mcg/hr .Q6H40M PRN 2.5 mls/hr TITRATE PER MD ORDER Administration Protocol 150 MCG/HR Meropenem 1 gm/ Dextrose 100 mls @ 100 mls/hr 05/08/17 06:45 05/09/17 05:22 IVPB 05/15/17 06:46 100 mls/hr Q8 CEM Administration Protocol Micafungin Sodium 100 mg/ 100 mls @ 100 mls/hr 05/08/17 10:00 05/09/17 09:39 Sodium Chloride IV 05/15/17 10:01 100 mls/hr DAILY CEM Administration Protocol Magnesium Oxide 400 mg 05/06/17 16:45 05/09/17 09:39 Mag-Ox PO Not Given DAILY CEM Midazolam HCl 2 mg 04/29/17 09:28 05/03/17 18:20 Versed Inj IVP 2 mg Q2 PRN Administration Agitation Midodrine 10 mg 04/30/17 10:00 05/09/17 09:40 Proamatine PO Not Given TID CEM Multivitamins/Minerals 1 tab 04/26/17 12:00 05/09/17 09:40 Therapeutic-M Tab PO Not Given 0800 CEM Vitamin A 1 ea 05/04/17 08:03 05/06/17 11:33 Vitamin A & D Oint Ud Foilpak TOP 1 ea Q8 PRN Administration dry, cracked lips - Patient Studies Lab Studies: Microbiology Studies 05/06/17 09:30 Blood Culture - Preliminary Blood-Venous NO GROWTH AFTER 3 DAYS 05/06/17 09:30 Blood Culture - Preliminary Blood-Venous NO GROWTH AFTER 3 DAYS 04/24/17 17:20 Mycobacterial Culture - Preliminary Other: Please Indicate 05/06/17 11:40 Gram Stain - Final Sputum Induced Sputum Culture - Final NORMAL ORAL PAMELLA Lab Studies 05/09/17 05/09/17 05/09/17 Range/Units 08:12 06:00 06:00 WBC 7.9 D (4.5-11.0) 10^3/ul RBC 2.63 L (3.5-6.1) 10^6/uL Hgb 8.0 L (14.0-18.0) g/dL Hct 25.5 L (42.0-52.0) % MCV 97.0 (80.0-105.0) fl MCH 30.4 (25.0-35.0) pg MCHC 31.4 (31.0-37.0) g/dl RDW 19.7 H (11.5-14.5) % Plt Count 77 L (120.0-450.0) 10^3/uL MPV 10.1 (7.0-11.0) fl Gran % 79.0 H (50.0-68.0) % Lymph % (Auto) 11.7 L (22.0-35.0) % Chaves % (Auto) 6.9 H (1.0-6.0) % Eos % (Auto) 2.3 (1.5-5.0) % Baso % (Auto) 0.1 (0.0-3.0) % Gran # 6.21 (1.4-6.5) Lymph # 0.9 L (1.2-3.4) Chaves # 0.5 (0.1-0.6) Eos # 0.2 (0.0-0.7) Baso # 0.01 (0.0-2.0) K/mm3 pCO2 (35-45) mm/Hg pO2 (80-100) mm/Hg HCO3 (21-28) mmol/L ABG pH (7.35-7.45) ABG Total CO2 (22-28) mmol.L ABG O2 Saturation (95-98) % ABG O2 Content (15-23) ML/dl ABG Base Excess (-2.0-3.0) mmol/L ABG Hemoglobin (11.7-17.4) g/dL ABG Carboxyhemoglobin (0.5-1.5) % POC ABG HHb (Measured) (0-5) % ABG Methemoglobin (0.0-3.0) % ABG O2 Capacity (16-24) mL/dl Hgb O2 Saturation (95.0-98.0) % FiO2 % Sodium 145 (132-148) mmol/L Potassium 3.5 L (3.6-5.0) mmol/L Chloride 112 H (98-107) mmol/L Carbon Dioxide 27 (21-33) mmol/L Anion Gap 9 L (10-20) BUN 43 H (7-21) mg/dL Creatinine 1.1 (0.8-1.5) mg/dl Est GFR ( Amer) > 60 Est GFR (Non-Af Amer) > 60 POC Glucose (mg/dL) 81 (65-110) mg/dL Random Glucose 78 (70-110) mg/dL Calcium 8.3 L (8.4-10.5) mg/dL Phosphorus 3.8 (2.5-4.5) mg/dL Magnesium 1.9 (1.7-2.2) mg/dL Total Bilirubin 2.1 H (0.2-1.3) mg/dL AST 43 (17-59) U/L ALT 48 (7-56) U/L Alkaline Phosphatase 151 H D (38-126) U/L Total Protein 4.9 L (5.8-8.3) g/dL Albumin 2.3 L (3.0-4.8) g/dL Globulin 2.6 gm/dL Albumin/Globulin Ratio 0.9 L (1.1-1.8) 05/09/17 05/09/17 05/09/17 Range/Units 05:15 04:08 00:21 WBC (4.5-11.0) 10^3/ul RBC (3.5-6.1) 10^6/uL Hgb (14.0-18.0) g/dL Hct (42.0-52.0) % MCV (80.0-105.0) fl MCH (25.0-35.0) pg MCHC (31.0-37.0) g/dl RDW (11.5-14.5) % Plt Count (120.0-450.0) 10^3/uL MPV (7.0-11.0) fl Gran % (50.0-68.0) % Lymph % (Auto) (22.0-35.0) % Chaves % (Auto) (1.0-6.0) % Eos % (Auto) (1.5-5.0) % Baso % (Auto) (0.0-3.0) % Gran # (1.4-6.5) Lymph # (1.2-3.4) Chaves # (0.1-0.6) Eos # (0.0-0.7) Baso # (0.0-2.0) K/mm3 pCO2 44 (35-45) mm/Hg pO2 170.0 H (80-100) mm/Hg HCO3 27.3 (21-28) mmol/L ABG pH 7.40 (7.35-7.45) ABG Total CO2 28.7 H (22-28) mmol.L ABG O2 Saturation 99.6 H (95-98) % ABG O2 Content 11.2 L (15-23) ML/dl ABG Base Excess 2.2 (-2.0-3.0) mmol/L ABG Hemoglobin 8.0 L (11.7-17.4) g/dL ABG Carboxyhemoglobin 2.6 H (0.5-1.5) % POC ABG HHb (Measured) 0.4 (0-5) % ABG Methemoglobin 1.0 (0.0-3.0) % ABG O2 Capacity 11.2 L (16-24) mL/dl Hgb O2 Saturation 95.9 (95.0-98.0) % FiO2 40.0 % Sodium (132-148) mmol/L Potassium (3.6-5.0) mmol/L Chloride (98-107) mmol/L Carbon Dioxide (21-33) mmol/L Anion Gap (10-20) BUN (7-21) mg/dL Creatinine (0.8-1.5) mg/dl Est GFR ( Amer) Est GFR (Non-Af Amer) POC Glucose (mg/dL) 90 81 (65-110) mg/dL Random Glucose (70-110) mg/dL Calcium (8.4-10.5) mg/dL Phosphorus (2.5-4.5) mg/dL Magnesium (1.7-2.2) mg/dL Total Bilirubin (0.2-1.3) mg/dL AST (17-59) U/L ALT (7-56) U/L Alkaline Phosphatase (38-126) U/L Total Protein (5.8-8.3) g/dL Albumin (3.0-4.8) g/dL Globulin gm/dL Albumin/Globulin Ratio (1.1-1.8) 05/08/17 05/08/17 05/08/17 Range/Units 20:11 16:16 11:45 WBC (4.5-11.0) 10^3/ul RBC (3.5-6.1) 10^6/uL Hgb (14.0-18.0) g/dL Hct (42.0-52.0) % MCV (80.0-105.0) fl MCH (25.0-35.0) pg MCHC (31.0-37.0) g/dl RDW (11.5-14.5) % Plt Count (120.0-450.0) 10^3/uL MPV (7.0-11.0) fl Gran % (50.0-68.0) % Lymph % (Auto) (22.0-35.0) % Chaves % (Auto) (1.0-6.0) % Eos % (Auto) (1.5-5.0) % Baso % (Auto) (0.0-3.0) % Gran # (1.4-6.5) Lymph # (1.2-3.4) Chaves # (0.1-0.6) Eos # (0.0-0.7) Baso # (0.0-2.0) K/mm3 pCO2 (35-45) mm/Hg pO2 (80-100) mm/Hg HCO3 (21-28) mmol/L ABG pH (7.35-7.45) ABG Total CO2 (22-28) mmol.L ABG O2 Saturation (95-98) % ABG O2 Content (15-23) ML/dl ABG Base Excess (-2.0-3.0) mmol/L ABG Hemoglobin (11.7-17.4) g/dL ABG Carboxyhemoglobin (0.5-1.5) % POC ABG HHb (Measured) (0-5) % ABG Methemoglobin (0.0-3.0) % ABG O2 Capacity (16-24) mL/dl Hgb O2 Saturation (95.0-98.0) % FiO2 % Sodium (132-148) mmol/L Potassium (3.6-5.0) mmol/L Chloride (98-107) mmol/L Carbon Dioxide (21-33) mmol/L Anion Gap (10-20) BUN (7-21) mg/dL Creatinine (0.8-1.5) mg/dl Est GFR ( Amer) Est GFR (Non-Af Amer) POC Glucose (mg/dL) 87 90 92 (65-110) mg/dL Random Glucose (70-110) mg/dL Calcium (8.4-10.5) mg/dL Phosphorus (2.5-4.5) mg/dL Magnesium (1.7-2.2) mg/dL Total Bilirubin (0.2-1.3) mg/dL AST (17-59) U/L ALT (7-56) U/L Alkaline Phosphatase (38-126) U/L Total Protein (5.8-8.3) g/dL Albumin (3.0-4.8) g/dL Globulin gm/dL Albumin/Globulin Ratio (1.1-1.8) 05/08/17 Range/Units 07:35 WBC (4.5-11.0) 10^3/ul RBC (3.5-6.1) 10^6/uL Hgb (14.0-18.0) g/dL Hct (42.0-52.0) % MCV (80.0-105.0) fl MCH (25.0-35.0) pg MCHC (31.0-37.0) g/dl RDW (11.5-14.5) % Plt Count (120.0-450.0) 10^3/uL MPV (7.0-11.0) fl Gran % (50.0-68.0) % Lymph % (Auto) (22.0-35.0) % [place] % (Auto) (1.0-6.0) % Eos % (Auto) (1.5-5.0) % Baso % (Auto) (0.0-3.0) % Gran # (1.4-6.5) Lymph # (1.2-3.4) [place] # (0.1-0.6) Eos # (0.0-0.7) Baso # (0.0-2.0) K/mm3 pCO2 (35-45) mm/Hg pO2 (80-100) mm/Hg HCO3 (21-28) mmol/L ABG pH (7.35-7.45) ABG Total CO2 (22-28) mmol.L ABG O2 Saturation (95-98) % ABG O2 Content (15-23) ML/dl ABG Base Excess (-2.0-3.0) mmol/L ABG Hemoglobin (11.7-17.4) g/dL ABG Carboxyhemoglobin (0.5-1.5) % POC ABG HHb (Measured) (0-5) % ABG Methemoglobin (0.0-3.0) % ABG O2 Capacity (16-24) mL/dl Hgb O2 Saturation (95.0-98.0) % FiO2 % Sodium (132-148) mmol/L Potassium (3.6-5.0) mmol/L Chloride (98-107) mmol/L Carbon Dioxide (21-33) mmol/L Anion Gap (10-20) BUN (7-21) mg/dL Creatinine (0.8-1.5) mg/dl Est GFR ( Amer) Est GFR (Non-Af Amer) POC Glucose (mg/dL) 88 (65-110) mg/dL Random Glucose (70-110) mg/dL Calcium (8.4-10.5) mg/dL Phosphorus (2.5-4.5) mg/dL Magnesium (1.7-2.2) mg/dL Total Bilirubin (0.2-1.3) mg/dL AST (17-59) U/L ALT (7-56) U/L Alkaline Phosphatase (38-126) U/L Total Protein (5.8-8.3) g/dL Albumin (3.0-4.8) g/dL Globulin gm/dL Albumin/Globulin Ratio (1.1-1.8) Laboratory Results - last 24 hr 05/08/17 05/08/17 05/08/17 07:35 11:45 16:16 WBC RBC Hgb Hct MCV MCH MCHC RDW Plt Count MPV Gran % Lymph % (Auto) [place] % (Auto) Eos % (Auto) Baso % (Auto) Gran # Lymph # [place] # Eos # Baso # pCO2 pO2 HCO3 ABG pH ABG Total CO2 ABG O2 Saturation ABG O2 Content ABG Base Excess ABG Hemoglobin ABG Carboxyhemoglobin POC ABG HHb (Measured) ABG Methemoglobin ABG O2 Capacity Hgb O2 Saturation FiO2 Sodium Potassium Chloride Carbon Dioxide Anion Gap BUN Creatinine Est GFR ( Amer) Est GFR (Non-Af Amer) POC Glucose (mg/dL) 88 92 90 Random Glucose Calcium Phosphorus Magnesium Total Bilirubin AST ALT Alkaline Phosphatase Total Protein Albumin Globulin Albumin/Globulin Ratio 05/08/17 05/09/17 05/09/17 20:11 00:21 04:08 WBC RBC Hgb Hct MCV MCH MCHC RDW Plt Count MPV Gran % Lymph % (Auto) [place] % (Auto) Eos % (Auto) Baso % (Auto) Gran # Lymph # [place] # Eos # Baso # pCO2 pO2 HCO3 ABG pH ABG Total CO2 ABG O2 Saturation ABG O2 Content ABG Base Excess ABG Hemoglobin ABG Carboxyhemoglobin POC ABG HHb (Measured) ABG Methemoglobin ABG O2 Capacity Hgb O2 Saturation FiO2 Sodium Potassium Chloride Carbon Dioxide Anion Gap BUN Creatinine Est GFR ( Amer) Est GFR (Non-Af Amer) POC Glucose (mg/dL) 87 81 90 Random Glucose Calcium Phosphorus Magnesium Total Bilirubin AST ALT Alkaline Phosphatase Total Protein Albumin Globulin Albumin/Globulin Ratio 05/09/17 05/09/17 05/09/17 05:15 06:00 06:00 WBC 7.9 D RBC 2.63 L Hgb 8.0 L Hct 25.5 L MCV 97.0 MCH 30.4 MCHC 31.4 RDW 19.7 H Plt Count 77 L MPV 10.1 Gran % 79.0 H Lymph % (Auto) 11.7 L [place] % (Auto) 6.9 H Eos % (Auto) 2.3 Baso % (Auto) 0.1 Gran # 6.21 Lymph # 0.9 L [place] # 0.5 Eos # 0.2 Baso # 0.01 pCO2 44 pO2 170.0 H HCO3 27.3 ABG pH 7.40 ABG Total CO2 28.7 H ABG O2 Saturation 99.6 H ABG O2 Content 11.2 L ABG Base Excess 2.2 ABG Hemoglobin 8.0 L ABG Carboxyhemoglobin 2.6 H POC ABG HHb (Measured) 0.4 ABG Methemoglobin 1.0 ABG O2 Capacity 11.2 L Hgb O2 Saturation 95.9 FiO2 40.0 Sodium 145 Potassium 3.5 L Chloride 112 H Carbon Dioxide 27 Anion Gap 9 L BUN 43 H Creatinine 1.1 Est GFR ( Amer) > 60 Est GFR (Non-Af Amer) > 60 POC Glucose (mg/dL) Random Glucose 78 Calcium 8.3 L Phosphorus 3.8 Magnesium 1.9 Total Bilirubin 2.1 H AST 43 ALT 48 Alkaline Phosphatase 151 H D Total Protein 4.9 L Albumin 2.3 L Globulin 2.6 Albumin/Globulin Ratio 0.9 L 05/09/17 08:12 WBC RBC Hgb Hct MCV MCH MCHC RDW Plt Count MPV Gran % Lymph % (Auto) [place] % (Auto) Eos % (Auto) Baso % (Auto) Gran # Lymph # [place] # Eos # Baso # pCO2 pO2 HCO3 ABG pH ABG Total CO2 ABG O2 Saturation ABG O2 Content ABG Base Excess ABG Hemoglobin ABG Carboxyhemoglobin POC ABG HHb (Measured) ABG Methemoglobin ABG O2 Capacity Hgb O2 Saturation FiO2 Sodium Potassium Chloride Carbon Dioxide Anion Gap BUN Creatinine Est GFR ( Amer) Est GFR (Non-Af Amer) POC Glucose (mg/dL) 81 Random Glucose Calcium Phosphorus Magnesium Total Bilirubin AST ALT Alkaline Phosphatase Total Protein Albumin Globulin Albumin/Globulin Ratio Assessment/Plan - Assessment and Plan (Free Text) Assessment: Patient seen and examined, on rounds with resident, agree with note, with following additions/exceptions: Patient is 76yo male a/w septic shock, 2/2 PNA/Empyema, s/p thoracentesis and Chest tube drainage with large bore CT, s/p thoracotomy with CT surgery, post op course complicated with thoracic bleeding, retaken back to the OR, hemostasis achieved. Currently, afebrile, HD stable, comfortable. Pt had tracheostomy done yesterday, tolerated the procedure well. CT removed this morning. Empyema/Pleural Effusion s/p thoracotomy PNA Hypothyroidism Respiratory failure s/p tracheostomy Recommend - cont with ventilatory support, low tidal vol ventilation - daily CPAP trials, sedation vacation - antibiotics as per ID - follow up cultures - monitor HH - monitor FS - MVT, Thiamine, Folic Acid - GI ppx - DVT ppx - skilled nursing planning, L-tach
--- NOTE | 2017-05-09 10:28 | CP.PCM.CON ---
History of Present Illness - History of Present Illness History of Present Illness: Palliative consult requested by Dr Santana copied to Dr. Valentin Ochoa Reason: Goals of care /palliative counseling 76 year old male with history of dementia and alcohol abuse who presented with weight loss,weakness, poor appetite and abdominal pain. CT head> no acute findings, mircrovascular changes. CT of Chest/Ab showed large loculated L pleural effusion, left lung collapse. Found to have L empyema s/p thoracentisis>1.5 L of purulent fluid removed>chest tube. Sepsis. Severe anemia and coagulopathy requiring blood products. Now trach/PEG. PMHx: dementia, alcoholism,HTN, hypothyroidism, L cataract surgery. Social History: Smoker, daily alcohol use(6-12 beers). Lives with . Family History: Non contributory. Advance Care Planning: the patient does not have an Advanced Directive. He is Full Code status as per family. Review of Systems: As per HPI, unable to obtain, dementia. Past Patient History - Infectious Disease Hx of Infectious Diseases: None - Past Social History Smoking Status: Former Smoker - CARDIAC Hx Pacemaker: No - PULMONARY Hx Respiratory Disorders: No Hx Asthma: No Hx Bronchitis: No Hx Chronic Obstructive Pulmonary Disease (COPD): No Hx Emphysema: No Hx Pneumonia: No Hx Respiratory Aspiration: No Hx Respiratory Tract Infection: No Hx Sleep Apnea: No Hx Tuberculosis: No - NEUROLOGICAL Hx Neurological Disorder: No Hx Alzheimer's Disease: No HX Cerebrovascular Accident: No Hx Dementia: Yes Hx Dizziness: No Hx Meningitis: Yes (Headaches) Hx Migraine: Yes Hx Parkinson's Disease: No Hx Seizures: No Hx Transient Ischemic Attacks (TIA): Yes - HEENT Hx HEENT Problems: Yes (sore throat; patient family states it has been a year) Hx Blind: No Hx Cataracts: Yes (left eye) Hx Deafness: No Hx Difficulty Chewing: No Hx Epistaxis: No Hx Glaucoma: No Hx Macular Degeneration: No - RENAL Hx Chronic Kidney Disease: No Hx Dialysis: No Hx Kidney Stones: No Hx Neurogenic Bladder: No Hx Pyelonephritis: No Hx Renal (Kidney) Cancer: No Hx Renal Failure: No - ENDOCRINE/METABOLIC Hx Endocrine Disorders: No Hx Adrenal Cancer: No Hx Diabetes Insipidus: No Hx Diabetes Mellitus Type 1: No Hx Diabetes Mellitus Type 2: No Hx Hyperthyroidism: No Hx Hypothyroidism: Yes Hx Systemic Lupus Erythematosus: No - HEMATOLOGICAL/ONCOLOGICAL Hx Blood Transfusions: Yes Hx Blood Transfusion Reaction: No - INTEGUMENTARY Hx Dermatological Problems: No Hx Basil Cell: No Hx Eczema: Yes (family states around the ears) Hx Melanoma: No Hx Psoriasis: No Hx Squamous Cell: No - MUSCULOSKELETAL/RHEUMATOLOGICAL Hx Musculoskeletal Disorders: No Hx Arthritis: No Hx Back Pain: No Hx Degenerative Joint Disease: No Hx Falls: Yes Hx Fractures: No Hx Gout: No Hx Herniated Disk: No Hx Myasthenia Gravis: No Hx Osteoarthritis: No Hx Osteomyelitis: No Hx Osteoporosis: No Hx Rhabdomyolysis: No Hx Spinal Stenosis: No Hx Unsteady Gait: Yes - GASTROINTESTINAL Hx Gastrointestinal Disorders: No Hx Colostomy: No Hx Crohn's Disease: No Hx Diverticulitis: No Hx Gall Bladder Disease: No Hx Gastroesophageal Reflux: Yes Hx Ileostomy: No Hx Liver Failure: No Hx Pancreatitis: No HX Swallowing Problems: Yes Hx Ulcer: No - GENITOURINARY/GYNECOLOGICAL Hx Genitourinary Disorders: No Hx Hematuria: No Hx Incontinence: No Hx Prostate Problems: No Hx Sexually Transmitted Disorders: No Hx Urinary Tract Infection: No - PSYCHIATRIC Hx Psychophysiologic Disorder: No Hx Anxiety: No Hx Bipolar Disorder: No Hx Depression: No Hx Hallucinations: No Hx Panic Symptoms: No Hx Psychosis: No Hx Schizophrenia: No Hx Sexual Abuse: No - SURGICAL HISTORY Hx Surgeries: Yes - ANESTHESIA Hx Anesthesia Reactions: No Hx Malignant Hyperthermia: No Meds Allergies/Adverse Reactions: Allergies Allergy/AdvReac Type Severity Reaction Status Date / Time No Known Allergies Allergy Verified 04/23/17 11:21 - Medications Medications: Current Medications Albuterol/Ipratropium (Duoneb 3 Mg/0.5 Mg (3 Ml) Ud) 3 ml IH [id number] [facility] Last Admin: 05/09/17 07:02 Dose: 3 ml Albuterol/Ipratropium (Duoneb 3 Mg/0.5 Mg (3 Ml) Ud) 3 ml IH Q2H PRN PRN Reason: Shortness of Breath Last Admin: 04/25/17 00:30 Dose: 3 ml Chlorhexidine Gluconate (Peridex) 15 ml PO BID [facility] Last Admin: 05/07/17 17:25 Dose: 15 ml Folic Acid (Folic Acid) 1 mg PO DAILY [facility] Last Admin: 05/09/17 09:39 Dose: Not Given Guaifenesin/Dextromethorphan (Robitussin Dm) 5 ml PO Q6H PRN PRN Reason: Cough Heparin Sodium (Porcine) (Heparin) 5,000 units SC Q8 [facility]EM PRN Reason: Protocol Last Admin: 04/30/17 22:49 Dose: Not Given Midazolam 100 mg/100ml in NS (Midazolam 100 Mg/100ml In Ns) 100 mg in 100 mls @ 1 mls/hr IV .Q24H PRN; Protocol; 1 MG/HR PRN Reason: Agitation Last Admin: 05/08/17 11:14 Dose: 2 mg/hr, 2 mls/hr Fentanyl Citrate (Fentanyl Citrate/Sodium Chloride 1 Mg/100 Ml) 1,000 mcg in 100 mls @ 15 mls/hr IV .Q6H40M PRN; Protocol; 150 MCG/HR PRN Reason: TITRATE PER MD ORDER Last Admin: 05/09/17 03:08 Dose: 25 mcg/hr, 2.5 mls/hr Vancomycin HCl (Vancomycin 1gm) 1 gm in 250 mls @ 167 mls/hr IVPB Q12H [facility] PRN Reason: Protocol Last Admin: 05/09/17 07:15 Dose: 167 mls/hr Meropenem 1 gm/ Dextrose 100 mls @ 100 mls/hr IVPB Q8 [facility] PRN Reason: Protocol Stop: 05/15/17 06:46 Last Admin: 05/09/17 05:22 Dose: 100 mls/hr Micafungin Sodium 100 mg/ (Sodium Chloride) 100 mls @ 100 mls/hr IV DAILY [facility] PRN Reason: Protocol Stop: 05/15/17 10:01 Last Admin: 05/09/17 09:39 Dose: 100 mls/hr Magnesium Oxide (Mag-Ox) 400 mg PO DAILY [facility] Last Admin: 05/09/17 09:39 Dose: Not Given Midazolam HCl (Versed Inj) 2 mg IVP Q2 PRN PRN Reason: Agitation Last Admin: 05/03/17 18:20 Dose: 2 mg Midodrine (Proamatine) 10 mg PO TID [facility] Last Admin: 05/09/17 09:40 Dose: Not Given Multivitamins/Minerals (Therapeutic-M Tab) 1 tab PO 0800 [facility] Last Admin: 05/09/17 09:40 Dose: Not Given Vitamin A (Vitamin A & D Oint Ud Foilpak) 1 ea TOP Q8 PRN PRN Reason: dry, cracked lips Last Admin: 05/06/17 11:33 Dose: 1 ea Physical Exam - Constitutional Appears: No Acute Distress, Chronically Ill - Head Exam Head Exam: NORMOCEPHALIC - Eye Exam Eye Exam: Normal appearance, PERRL - ENT Exam ENT Exam: Mucous Membranes Moist - Respiratory Exam Respiratory Exam: Decreased Breath Sounds, Rhonchi - Cardiovascular Exam Cardiovascular Exam: REGULAR RHYTHM, +S1, +S2 - GI/Abdominal Exam GI & Abdominal Exam: Normal Bowel Sounds, Soft - Extremities Exam Extremities exam: Positive for: pedal edema, pedal pulses present - Back Exam Back exam: NORMAL INSPECTION - Neurological Exam Neurological exam: Altered - Skin Skin Exam: Dry, Pallor - Additional Findings Additional findings: Palliative performance scale rating 30% Results - Vital Signs Recent Vital Signs: Last Vital Signs Temp 97.7 F 05/09/17 07:30 Pulse 92 H 05/09/17 07:30 Resp 18 05/09/17 07:04 BP 110/61 05/09/17 07:30 Pulse Ox 100 05/09/17 07:30 - Labs Result Diagrams: 05/09/17 06:00 05/09/17 06:00 Labs: Laboratory Results - last 24 hr 05/08/17 05/08/17 05/08/17 07:35 11:45 16:16 WBC RBC Hgb Hct MCV MCH MCHC RDW Plt Count MPV Gran % Lymph % (Auto) [place] % (Auto) Eos % (Auto) Baso % (Auto) Gran # Lymph # [place] # Eos # Baso # pCO2 pO2 HCO3 ABG pH ABG Total CO2 ABG O2 Saturation ABG O2 Content ABG Base Excess ABG Hemoglobin ABG Carboxyhemoglobin POC ABG HHb (Measured) ABG Methemoglobin ABG O2 Capacity Hgb O2 Saturation FiO2 Sodium Potassium Chloride Carbon Dioxide Anion Gap BUN Creatinine Est GFR ( Amer) Est GFR (Non-Af Amer) POC Glucose (mg/dL) 88 92 90 Random Glucose Calcium Phosphorus Magnesium Total Bilirubin AST ALT Alkaline Phosphatase Total Protein Albumin Globulin Albumin/Globulin Ratio 05/08/17 05/09/17 05/09/17 20:11 00:21 04:08 WBC RBC Hgb Hct MCV MCH MCHC RDW Plt Count MPV Gran % Lymph % (Auto) [place] % (Auto) Eos % (Auto) Baso % (Auto) Gran # Lymph # [place] # Eos # Baso # pCO2 pO2 HCO3 ABG pH ABG Total CO2 ABG O2 Saturation ABG O2 Content ABG Base Excess ABG Hemoglobin ABG Carboxyhemoglobin POC ABG HHb (Measured) ABG Methemoglobin ABG O2 Capacity Hgb O2 Saturation FiO2 Sodium Potassium Chloride Carbon Dioxide Anion Gap BUN Creatinine Est GFR ( Amer) Est GFR (Non-Af Amer) POC Glucose (mg/dL) 87 81 90 Random Glucose Calcium Phosphorus Magnesium Total Bilirubin AST ALT Alkaline Phosphatase Total Protein Albumin Globulin Albumin/Globulin Ratio 05/09/17 05/09/17 05/09/17 05:15 06:00 06:00 WBC 7.9 D RBC 2.63 L Hgb 8.0 L Hct 25.5 L MCV 97.0 MCH 30.4 MCHC 31.4 RDW 19.7 H Plt Count 77 L MPV 10.1 Gran % 79.0 H Lymph % (Auto) 11.7 L [place] % (Auto) 6.9 H Eos % (Auto) 2.3 Baso % (Auto) 0.1 Gran # 6.21 Lymph # 0.9 L [place] # 0.5 Eos # 0.2 Baso # 0.01 pCO2 44 pO2 170.0 H HCO3 27.3 ABG pH 7.40 ABG Total CO2 28.7 H ABG O2 Saturation 99.6 H ABG O2 Content 11.2 L ABG Base Excess 2.2 ABG Hemoglobin 8.0 L ABG Carboxyhemoglobin 2.6 H POC ABG HHb (Measured) 0.4 ABG Methemoglobin 1.0 ABG O2 Capacity 11.2 L Hgb O2 Saturation 95.9 FiO2 40.0 Sodium 145 Potassium 3.5 L Chloride 112 H Carbon Dioxide 27 Anion Gap 9 L BUN 43 H Creatinine 1.1 Est GFR ( Amer) > 60 Est GFR (Non-Af Amer) > 60 POC Glucose (mg/dL) Random Glucose 78 Calcium 8.3 L Phosphorus 3.8 Magnesium 1.9 Total Bilirubin 2.1 H AST 43 ALT 48 Alkaline Phosphatase 151 H D Total Protein 4.9 L Albumin 2.3 L Globulin 2.6 Albumin/Globulin Ratio 0.9 L 05/09/17 08:12 WBC RBC Hgb Hct MCV MCH MCHC RDW Plt Count MPV Gran % Lymph % (Auto) [place] % (Auto) Eos % (Auto) Baso % (Auto) Gran # Lymph # [place] # Eos # Baso # pCO2 pO2 HCO3 ABG pH ABG Total CO2 ABG O2 Saturation ABG O2 Content ABG Base Excess ABG Hemoglobin ABG Carboxyhemoglobin POC ABG HHb (Measured) ABG Methemoglobin ABG O2 Capacity Hgb O2 Saturation FiO2 Sodium Potassium Chloride Carbon Dioxide Anion Gap BUN Creatinine Est GFR ( Amer) Est GFR (Non-Af Amer) POC Glucose (mg/dL) 81 Random Glucose Calcium Phosphorus Magnesium Total Bilirubin AST ALT Alkaline Phosphatase Total Protein Albumin Globulin Albumin/Globulin Ratio Assessment & Plan - Assessment and Plan (Free Text) Assessment: 76 year old male with hsoty of dementia and alcoholism who is admitted with empyema, s/p thoracotomy, s/p chest tube septic shock, altered mental status,coagulopathy, anemia, acute renal failure,acute respiratory failure. The patient is altered. He is s/p tracheostomy and PEG yesterday. He is pending transfer to LTAC this afternoon. I am meeting family for the first time today. Patients son at bedside. Palliative services introduced/explained. Son states that he has been given regular daily updates of his fathers condition and verbalizes understanding of the seriousness of his fathers illness. Son states that family wants any and all aggressive measures to continue regarding his fathers care. Advance care planing discussion ensued. I explained that if fathers condition does not improve and instead declines, palliative services can be initiated at LTAC. Son is appreciative of this information. Psychosocial support given. Goals of care and advance care planning, 20 minutes Plan: Palliative counseling
[2017-05-09] MEDS: Chlorhexidine 0.12% Oral Sol 480 ml Bot PO SCH (10:30)
--- NOTE | 2017-05-09 10:33 | RAD ---
HISTORY: interval changes COMPARISON: 05/08/2017 FINDINGS: LUNGS: There is an infiltrate at the left lung base. Two chest tubes remain in place on the left. There is a displaced rib fracture on the left PLEURA: No significant pleural effusion identified, no pneumothorax apparent. CARDIOVASCULAR: Mild cardiomegaly. Moderate vascular congestion OSSEOUS STRUCTURES: No significant abnormalities. VISUALIZED UPPER ABDOMEN: Normal. OTHER FINDINGS: None. IMPRESSION: There is an infiltrate at the left lung base. Two chest tubes remain in place on the left. There is a displaced rib fracture on the left
--- NOTE | 2017-05-09 10:42 | CP.PCM.PN ---
Subjective - Date & Time of Evaluation Date of Evaluation: 05/09/17 Time of Evaluation: 09:20 - Subjective Subjective: Had tracheostomy done yesterday, tolerated procedure. The chest tube has also been removed. No fevers overnight, still on the ventilator. Objective - Vital Signs/Intake and Output Vital Signs (last 24 hours): Temp Pulse Resp BP Pulse Ox 97.0 F L 89 14 104/55 L 100 05/09/17 05:05 05/09/17 05:05 05/08/17 21:52 05/09/17 05:05 05/09/17 05:05 Intake and Output: 05/08/17 05/09/17 18:59 06:59 Intake Total 2940 100 Output Total 520 Balance 2420 100 - Medications Medications: Current Medications Albuterol/Ipratropium (Duoneb 3 Mg/0.5 Mg (3 Ml) Ud) 3 ml IH [id number] [facility] Last Admin: 05/09/17 02:29 Dose: 3 ml Albuterol/Ipratropium (Duoneb 3 Mg/0.5 Mg (3 Ml) Ud) 3 ml IH Q2H PRN PRN Reason: Shortness of Breath Last Admin: 04/25/17 00:30 Dose: 3 ml Chlorhexidine Gluconate (Peridex) 15 ml PO BID [facility] Last Admin: 05/07/17 17:25 Dose: 15 ml Folic Acid (Folic Acid) 1 mg PO DAILY [facility] Last Admin: 05/08/17 09:41 Dose: Not Given Guaifenesin/Dextromethorphan (Robitussin Dm) 5 ml PO Q6H PRN PRN Reason: Cough Heparin Sodium (Porcine) (Heparin) 5,000 units SC Q8 [facility] PRN Reason: Protocol Last Admin: 04/30/17 22:49 Dose: Not Given Midazolam 100 mg/100ml in NS (Midazolam 100 Mg/100ml In Ns) 100 mg in 100 mls @ 1 mls/hr IV .Q24H PRN; Protocol; 1 MG/HR PRN Reason: Agitation Last Admin: 05/08/17 11:14 Dose: 2 mg/hr, 2 mls/hr Fentanyl Citrate (Fentanyl Citrate/Sodium Chloride 1 Mg/100 Ml) 1,000 mcg in 100 mls @ 15 mls/hr IV .Q6H40M PRN; Protocol; 150 MCG/HR PRN Reason: TITRATE PER MD ORDER Last Admin: 05/09/17 03:08 Dose: 25 mcg/hr, 2.5 mls/hr Vancomycin HCl (Vancomycin 1gm) 1 gm in 250 mls @ 167 mls/hr IVPB Q12H [facility] PRN Reason: Protocol Last Admin: 05/08/17 20:00 Dose: 167 mls/hr Meropenem 1 gm/ Dextrose 100 mls @ 100 mls/hr IVPB Q8 [facility] PRN Reason: Protocol Stop: 05/15/17 06:46 Last Admin: 05/09/17 05:22 Dose: 100 mls/hr Micafungin Sodium 100 mg/ (Sodium Chloride) 100 mls @ 100 mls/hr IV DAILY [facility] PRN Reason: Protocol Stop: 05/15/17 10:01 Last Admin: 05/08/17 10:21 Dose: 100 mls/hr Magnesium Oxide (Mag-Ox) 400 mg PO DAILY [facility] Last Admin: 05/08/17 09:41 Dose: Not Given Midazolam HCl (Versed Inj) 2 mg IVP Q2 PRN PRN Reason: Agitation Last Admin: 05/03/17 18:20 Dose: 2 mg Midodrine (Proamatine) 10 mg PO TID [facility] Last Admin: 05/08/17 14:22 Dose: Not Given Multivitamins/Minerals (Therapeutic-M Tab) 1 tab PO 0800 [facility] Last Admin: 05/08/17 09:41 Dose: Not Given Vitamin A (Vitamin A & D Oint Ud Foilpak) 1 ea TOP Q8 PRN PRN Reason: dry, cracked lips Last Admin: 05/06/17 11:33 Dose: 1 ea - Labs Labs: 05/08/17 06:50 05/08/17 06:50 PT 16.4 SECONDS (9.4-12.5) H 05/08/17 06:50 INR 1.48 (0.93-1.08) H 05/08/17 06:50 APTT 34.9 Seconds (25.1-36.5) 05/08/17 06:50 - Constitutional Appears: Other (on the ventilator) - ENT Exam Additional comments: tracheostomy tube in place - Respiratory Exam Respiratory Exam: Rales (scattered) Additional comments: left side of the chest with dry dressings in place - Cardiovascular Exam Cardiovascular Exam: +S1, +S2 - GI/Abdominal Exam GI & Abdominal Exam: Soft. absent: Tenderness Assessment and Plan - Assessment and Plan (Free Text) Plan: Assessment Severe sepsis with ventilator dependent respiratory failure due to left sided severe community-acquired aspiration pneumonia with left sided pleural effusion S/P thoracentesis and now S/P chest tube placement POD #14, S/P VATS and decortication of possible empyema POD #8 S/P tracheostomy POD #1 S/P acute drop in Hemoglobin, thrombocytopenia, clinically improved history of alcohol abuse hypothyroidism cataracts S/P left eye surgery HTN dementia Plan continue Merrem day 16 (we have d/c'ed Zithromax and Vancomycin); pleural fluid cx are negative; chest tube has been removed - OR cultures are negative - WBC count has normalized today - Merrem may be discontinued in the next 24-48 hours f results of the repeat septic work up done 3 days only show yeast in the urine - continue Mycamine for the yeast in the urine (day 3, to complete 7 days) ICU team monitoring Hemoglobin and patient is also being monitored by CT surgery
--- NOTE | 2017-05-09 11:18 | RAD ---
HISTORY: CT removal, Please do at 10AM COMPARISON: Earlier same day FINDINGS: LUNGS: Left-sided chest tubes have been removed. There is a small pneumothorax along the left lateral chest wall adjacent to the rib fracture. There is an infiltrate at the left lung base unchanged PLEURA: No significant pleural effusion identified, no pneumothorax apparent. CARDIOVASCULAR: Normal. OSSEOUS STRUCTURES: No significant abnormalities. VISUALIZED UPPER ABDOMEN: Normal. OTHER FINDINGS: None. IMPRESSION: Left-sided chest tubes have been removed. There is a small pneumothorax along the left lateral chest wall adjacent to the rib fracture. There is an infiltrate at the left lung base unchanged
[2017-05-09] MEDS: Vitamins A & D Oint UD Foilpak TOP PRN (14:07)
--- NOTE | 2017-05-09 14:10 | CP.PCM.PN ---
Subjective - Date & Time of Evaluation Date of Evaluation: 05/09/17 Time of Evaluation: 08:06 - Subjective Subjective: PGY1 Cardiothoracic Surgery Progress Note for Dr. He Patient seen and examined at bedside this morning. No acute events overnight. Patient is POD1 from trach procedure. Patient tolerated procedure well. Chest tube output 270cc over 24 hours and 100cc over last 12 hours. Patient is current breathing on the vent. Patient is scheduled to be transferred to [facility] today. Objective - Vital Signs/Intake and Output Vital Signs (last 24 hours): Temp Pulse Resp BP Pulse Ox 98.4 F 101 H 18 105/55 L 98 05/09/17 11:44 05/09/17 11:44 05/09/17 07:04 05/09/17 11:44 05/09/17 11:44 Intake and Output: 05/09/17 05/09/17 06:59 18:59 Intake Total 475 Output Total 600 Balance -125 - Medications Medications: Current Medications Albuterol/Ipratropium (Duoneb 3 Mg/0.5 Mg (3 Ml) Ud) 3 ml IH [id number] [facility] Last Admin: 05/09/17 13:07 Dose: 3 ml Albuterol/Ipratropium (Duoneb 3 Mg/0.5 Mg (3 Ml) Ud) 3 ml IH Q2H PRN PRN Reason: Shortness of Breath Last Admin: 04/25/17 00:30 Dose: 3 ml Chlorhexidine Gluconate (Peridex) 15 ml PO BID [facility] Last Admin: 05/09/17 10:30 Dose: 15 ml Folic Acid (Folic Acid) 1 mg PO DAILY [facility] Last Admin: 05/09/17 09:39 Dose: Not Given Guaifenesin/Dextromethorphan (Robitussin Dm) 5 ml PO Q6H PRN PRN Reason: Cough Heparin Sodium (Porcine) (Heparin) 5,000 units SC Q8 [facility] PRN Reason: Protocol Last Admin: 04/30/17 22:49 Dose: Not Given Midazolam 100 mg/100ml in NS (Midazolam 100 Mg/100ml In Ns) 100 mg in 100 mls @ 1 mls/hr IV .Q24H PRN; Protocol; 1 MG/HR PRN Reason: Agitation Last Admin: 05/08/17 11:14 Dose: 2 mg/hr, 2 mls/hr Fentanyl Citrate (Fentanyl Citrate/Sodium Chloride 1 Mg/100 Ml) 1,000 mcg in 100 mls @ 15 mls/hr IV .Q6H40M PRN; Protocol; 150 MCG/HR PRN Reason: TITRATE PER MD ORDER Last Admin: 05/09/17 03:08 Dose: 25 mcg/hr, 2.5 mls/hr Meropenem 1 gm/ Dextrose 100 mls @ 100 mls/hr IVPB Q8 CEM PRN Reason: Protocol Stop: 05/15/17 06:46 Last Admin: 05/09/17 13:54 Dose: 100 mls/hr Micafungin Sodium 100 mg/ (Sodium Chloride) 100 mls @ 100 mls/hr IV DAILY [facility]EM PRN Reason: Protocol Stop: 05/15/17 10:01 Last Admin: 05/09/17 09:39 Dose: 100 mls/hr Magnesium Oxide (Mag-Ox) 400 mg PO DAILY [facility] Last Admin: 05/09/17 09:39 Dose: Not Given Midazolam HCl (Versed Inj) 2 mg IVP Q2 PRN PRN Reason: Agitation Last Admin: 05/03/17 18:20 Dose: 2 mg Midodrine (Proamatine) 10 mg PO TID [facility] Last Admin: 05/09/17 13:58 Dose: Not Given Multivitamins/Minerals (Therapeutic-M Tab) 1 tab PO 0800 [facility] Last Admin: 05/09/17 09:40 Dose: Not Given Vitamin A (Vitamin A & D Oint Ud Foilpak) 1 ea TOP Q8 PRN PRN Reason: dry, cracked lips Last Admin: 05/06/17 11:33 Dose: 1 ea - Labs Labs: 05/09/17 06:00 05/09/17 06:00 PT 16.4 SECONDS (9.4-12.5) H 05/08/17 06:50 INR 1.48 (0.93-1.08) H 05/08/17 06:50 APTT 34.9 Seconds (25.1-36.5) 05/08/17 06:50 - Constitutional Appears: Other (On vent.) - Head Exam Head Exam: ATRAUMATIC, NORMOCEPHALIC - ENT Exam ENT Exam: Mucous Membranes Moist Additional comments: dried blood on lips - Neck Exam Additional comments: Trach in place. edema and ecchymosis improving - Respiratory Exam Respiratory Exam: absent: Accessory Muscle Use, Respiratory Distress - Cardiovascular Exam Cardiovascular Exam: REGULAR RHYTHM - Extremities Exam Extremities Exam: absent: Calf Tenderness, Pedal Edema - Neurological Exam Neurological Exam: Altered (sedated) - Skin Skin Exam: Dry, Warm Assessment and Plan - Assessment and Plan (Free Text) Assessment: 76M w/ Empyema, Fibrothorax, S/P Left Thoracotomy w/ Decortication POD 8 and take-back with clot evacuation POD 7 and trach placement POD 1 Plan: Patient tolerated Tracheostomy procedure well, acute complications overnight Patient is scheduled to be discharged to [facility] today Left sided chest tubes removed. Dressing must stay in place for the next 48 hours. If dressing becomes saturated, please re-enforce. CXR 3 hours after chest tube removal showed small residual pneumothorax in left base of lung field. Not believed to be a leak, but air introduce while removing chest tubes. No surgical intervention at this time. Patient is stable for transfer to [facility] today. Case discussed with Dr. Ying Quintana Bhaskar PGY1
[2017-05-09 15:42] VITALS: BP 114/63; PULSE 116; TEMP 86.4; O2SAT 97
--- NOTE | 2017-05-10 01:21 | DS ---
HISTORY OF PRESENT ILLNESS: The patient is a 76-year-old who initially came in because of generalized weakness, poor oral intake, cough and congestion, decreased appetite with significant weight loss. The patient was admitted on April 23. He was started on IV antibiotics, nebulizer treatment. He was found to have coagulopathy because he has a long standing history of alcohol abuse. The next day, the patient overnight he started to have increasing shortness of breath, he went into respiratory distress, rapid response was called and the patient was transferred to ICU on April 25. He was found to have loculated collection in his left lower chest area, underwent chest tube insertion, but all of collection did not drain, so thoracic surgeon was involved and Dr. Benjamin He, he did open thoracotomy. Postprocedure patient started to have massive bleeding. He was given multiple blood transfusion along with FFP. He was taken to back to OR and his bleeding site was patched. He remained on vent during this time. At one point, the patient was hypotensive, he was on pressors. He was given different course of antibiotics. He remained on pressor, but slowly tapered down. His condition started to improve somewhat. After inserting chest tube, his drainage started to get scanty, so this morning, his chest tube was removed. He had tracheostomy done yesterday, so he is being transferred to [facility] today. PHYSICAL EXAMINATION: GENERAL: He is sleepy and drowsy. VITAL SIGNS: Temperature 98.8, pulse 97, respirations 20 and blood pressure 114/63. LUNGS: Bilateral fair airflow. No rhonchi or crackle. HEART: S1 and S2 audible, tachycardiac. ABDOMEN: Soft. NEUROLOGICAL: He is sedated. LABORATORY DATA: WBC is 7.9, hemoglobin 8.0, hematocrit 25 and platelets of 77. Chemistry; sodium 145, potassium 3.5, chloride 112, CO2 of 27, BUN 43, creatinine 1.1 and blood sugar of 82. ASSESSMENT: Status post sepsis, status post respiratory failure, status post tracheostomy, status post chest tube insertion, status post open thoracotomy. PLAN: He had chest tube removed. He is on trach and vent. He is being transferred to LTAC, where he will be taken care for his further ongoing issues. Tony Ochoa MD [facility] # [id number]
== END 2017-05-09 15:57 | DRG 3 ==
LOC: ED 11:11 → ERH 13:46 → 2RNO 15:16 → CCU 04-25 02:17
PROVIDERS: ADMIT Internal Medicine; ATTEND Internal Medicine
PROC: 0W9B3ZX Drainage of Left Pleural Cavity, Percutaneous Approach, Diagnostic (ICD-10-PCS; 2017-04-24)
PROC: 5A1955Z Respiratory Ventilation, Greater than 96 Consecutive Hours (ICD-10-PCS; 2017-04-25)
PROC: 0BH17EZ Insertion of Endotracheal Airway into Trachea, Via Natural or Artificial Opening (ICD-10-PCS; 2017-04-25)
PROC: 5A09357 Assistance with Respiratory Ventilation, Less than 24 Consecutive Hours, Continuous Positive Airway Pressure (ICD-10-PCS; 2017-04-25)
PROC: 3E03328 Introduction of Oxazolidinones into Peripheral Vein, Percutaneous Approach (ICD-10-PCS; 2017-04-30)
PROC: 02HV33Z Insertion of Infusion Device into Superior Vena Cava, Percutaneous Approach (ICD-10-PCS; 2017-04-30)
PROC: 0BNL0ZZ Release Left Lung, Open Approach (ICD-10-PCS; 2017-05-01)
PROC: 30233N1 Transfusion of Nonautologous Red Blood Cells into Peripheral Vein, Percutaneous Approach (ICD-10-PCS; 2017-05-01)
PROC: 30233K1 Transfusion of Nonautologous Frozen Plasma into Peripheral Vein, Percutaneous Approach (ICD-10-PCS; 2017-05-01)
PROC: 0W380ZZ Control Bleeding in Chest Wall, Open Approach (ICD-10-PCS; 2017-05-02)
PROC: 6A551Z2 Pheresis of Platelets, Multiple (ICD-10-PCS; 2017-05-02)
PROC: 02PY33Z Removal of Infusion Device from Great Vessel, Percutaneous Approach (ICD-10-PCS; 2017-05-05)
PROC: 02HV33Z Insertion of Infusion Device into Superior Vena Cava, Percutaneous Approach (ICD-10-PCS; 2017-05-05)
PROC: 0B110F4 Bypass Trachea to Cutaneous with Tracheostomy Device, Open Approach (ICD-10-PCS; principal; 2017-05-08 12:00)
DX: A41.9 Sepsis, unspecified organism (principal); J96.01 Acute respiratory failure with hypoxia; I21.3 ST elevation (STEMI) myocardial infarction of unspecified site; R65.21 Severe sepsis with septic shock; J86.9 Pyothorax without fistula; J69.0 Pneumonitis due to inhalation of food and vomit; J94.2 Hemothorax; N17.9 Acute kidney failure, unspecified; E87.0 Hyperosmolality and hypernatremia; J91.8 Pleural effusion in other conditions classified elsewhere; D68.4 Acquired coagulation factor deficiency; I97.618 Postprocedural hemorrhage of a circulatory system organ or structure following other circulatory system procedure; J98.11 Atelectasis; E87.2 Acidosis; Z99.11 Dependence on respirator [ventilator] status; N13.8 Other obstructive and reflux uropathy; N40.1 Benign prostatic hyperplasia with lower urinary tract symptoms; D69.6 Thrombocytopenia, unspecified; D50.0 Iron deficiency anemia secondary to blood loss (chronic); I10 Essential (primary) hypertension; K21.9 Gastro-esophageal reflux disease without esophagitis; R62.7 Adult failure to thrive; F10.10 Alcohol abuse, uncomplicated; F03.90 Unspecified dementia, unspecified severity, without behavioral disturbance, psychotic disturbance, mood disturbance, and anxiety; F17.200 Nicotine dependence, unspecified, uncomplicated; E88.81 Metabolic syndrome and other insulin resistance; K70.10 Alcoholic hepatitis without ascites; J45.909 Unspecified asthma, uncomplicated; R63.4 Abnormal weight loss; E78.5 Hyperlipidemia, unspecified; E03.9 Hypothyroidism, unspecified; K72.90 Hepatic failure, unspecified without coma; R40.2420 Glasgow coma scale score 9-12, unspecified time; J94.1 Fibrothorax; Y83.8 Other surgical procedures as the cause of abnormal reaction of the patient, or of later complication, without mention of misadventure at the time of the procedure; Z98.42 Cataract extraction status, left eye